=== PATIENT | female | born 1985 | race Caucasian/White ===

== ENCOUNTER 2022-04-12 14:25 | Outpatient (CLI) | payer BC, SELFPAY ==
--- NOTE | 2022-04-12 14:00 | CRLHL7_ITS ---
For Patients: As a result of the Century Cures Act, medical imaging exams and procedure reports are released immediately into your electronic medical record. You may view this report before your referring provider. If you have questions, please contact your health care provider. CLINICAL HISTORY: First trimester screening. TECHNIQUE: Real time sevilla scale imaging of the fetus was performed using a transabdominal approach. FINDINGS: Sonographic imaging demonstrates a single living intrauterine gestation. The fetus demonstrates a regular cardiac rate measuring 165 beats per minute. The crown rump length measurement of 4.2 cm corresponds to a gestation of 11 weeks 2 days which is concordant with the earlier dating ultrasound. A nuchal translucency measurement of 1.9 mm was obtained for screening purposes. IMPRESSION: Nuchal translucency measurement obtained for first trimester screen. Dictated by Chapo Vickers MD @ 04/12/2022 3:33:25 PM (Electronically Signed)
== END 2022-04-12 14:26 | disposition home or self-care (01) ==
LOC: US 14:26
PROVIDERS: PCP Family Medicine; Visit Provider Obstetrics & Gynecology
DX: Z34.91 Encounter for supervision of normal pregnancy, unspecified, first trimester (principal)
CPT/HCPCS: 36415; 76801; 76813; 84163; 84702

== ENCOUNTER 2022-05-14 12:07 | Outpatient (CLI) | payer BC, SELFPAY | END 2022-05-14 12:08 | disposition home or self-care (01) | LOC: NFLDREF 12:15 | PROVIDERS: PCP Family Medicine; Visit Provider Advanced Practice Midwife | DX: Z34.92 Encounter for supervision of normal pregnancy, unspecified, second trimester (principal); Z84.81 Family history of carrier of genetic disease | CPT/HCPCS: 81420 ==

== ENCOUNTER 2022-06-18 08:39 | Outpatient (CLI) | payer BC, SELFPAY ==
--- OUTSIDE RECORDS SUMMARY | 2022-06-18 08:41 | XMS_ITS | Clinical Summary ---
:1985 Author Organization [place] Address [address] [place] [address] Care Team Providers Name Role Phone [facility] Primary Care Provider [phone] Gia Martínez MD Unavailable [phone] Allergies No known active allergies Medications Medication Sig Dispensed Refills Start Date End Date Status lamoTRIgine (LAMICTAL) Take 400 mg by 0 Active 200 MG tablet mouth 2 times daily LEVETIRACETAM PO TABS Take 1,000 mg by 0 Active mouth 2 times daily. ACETAZOLAMIDE Take 500 mg by 0 A ctive POIndications: Seizure mouth 2 times daily. Indications: Seizure Vit-Fe Take 1 tablet by 0 Active Fumarate-FA ( mouth daily MULTIVITAMIN W/IRON) 27-0.8 MG tabletIndications: folic acid (FOLVITE) 1 Take 1 mg by mouth 0 Active MG tabletIndications: daily epilepsy ranitidine (ZANTAC) Take 150 mg by 0 Active 150 MG mouth 2 times capsuleIndications: daily Heartburn calcium carbonate Take 2 chew tab by 0 Active (TUMS) 500 MG chewable mouth 2 times tabletIndications: daily Heartburn magnesium oxide Take 400 mg by 0 Active (MAG-OX) 400 MG mouth daily tabletIndications: headache acetaminophen Take 325 mg by 0 A ctive (TYLENOL) 325 MG mouth every 6 tabletIndications: hours as needed Pain for mild pain or headaches Active Problems Problem Noted Date Encounter for induction of labor 10/28/2021 Social History Tobacco Use Types Packs/Day Years Used Date Never Smoker Smokeless Tobacco: Never Used Alcohol Use Standard Drinks/Week Comments Not Currently 0 (1 standard drink = 0.6 oz pure alcoho l) occ Sex Assigned at Date Recorded Not on file Last Filed Vital Signs Vital Sign Reading Time Taken Comments Blood Pressure 107/66 10/29/2021 11:[address] [employer]PERVIS[employer] Pulse 57 06/16/2013 7:52 AM CDT Temperature 37 ??C (98.6 ??F) 10/29/2021 6:[address] [employer]PER[employer] Respiratory Rate 99 10/29/2021 8:[address] [employer]PERVIS[employer] Oxygen Saturation 100% 10/29/2021 12:[address] [employer]PERVIS[employer] Inhaled Oxygen Concentration - - Weight 79.4 kg (175 lb) 10/28/2021 9:[address] [employer]PERVIS[employer] Height 165.1 cm (5' 5) 10/28/2021 9:[address] [employer]PERVIS[employer] Body Mass Index 29.12 10/28/2021 9:[address] [employer]VIS[employer] Plan of Treatment Health Maintenance Due Date Last Done Comments ADVANCE CARE PLANNING 1987 ANNUAL REVIEW OF HM ORDERS 1987 PREVENTIVE CARE VISIT 1987 Pneumococcal Vaccine: 1993 Pediatrics (0 to 5 Years) and At-Risk Patients (6 to 64 Years) (1 - PCV) PAP 2008 COVID-19 Vaccine (3 - 09/14/2021 04/14/2021, 03/24/2021 Booster for Pfizer series) PHQ-2 (once per calendar 10/07/2021 year) INFLUENZA VACCINE (#1) 2022 07/25/2021, 07/16/2019, 08/21/2018 DTAP/TDAP/TD IMMUNIZATION 12/18/2028 12/18/2018, 03/17/2016 , (7 - Td or Tdap) 04/23/2009, Additional history exists IPV IMMUNIZATION Aged Out 08/01/1989, 1985 No longe r eligible based on patient 's age to complete this topic HEPATITIS C SCREENING Completed 07/25/2021 HIV SCREENING Completed 07/25/2021 HEPATITIS B IMMUNIZATION Aged Out No long er eligible based on patient 's age to complete this topic MENINGITIS IMMUNIZATION Aged Out No longe r eligible based on patient 's age to complete this topic Insurance Payer Benefit Plan / Subscriber ID Effective Dates Phone Addre ss Type Group BCBS BCBS OUT OF [id number] 2021-Present [phone] [address] [address] [place] [address] Advance Directives For more information, please contact: [phone] Latest Code Status on File Code Status Date Activated Date Inactivated Comments Full Code 10/28/2021 6:54 PM 10/29/2021 4:58 PM All basic an d advanced life-sustaining interventions are performed as pepito ropriate Code status determined by: Discussion with patient/ legal de cision maker Care Teams Case Operator Relationship Specialty Start Date End Date [facility] Medical PCP - General 09/05/17 [id number] [place], [place] [phone] Gia Martínez MD Assigned OBGYN Provider 10/29/[address] [id number]
--- OUTSIDE RECORDS SUMMARY | 2022-06-18 08:41 | XMS_ITS | Encounter Summary ---
:1985 Author Organization [place] Address [address] [place] [address] Care Team Providers Name Role Phone [facility] Primary Care Provider [phone] Gia Martínez MD Unavailable [phone] Reason for Visit Reason Onset Date Comments Social Work Services 11/06/2021 Encounter Details Date Type Department Care Team Description 11/06/2021 Telephone [facility] MANAG[facility] [place] [facility] [id number] Mei Sanchez [facility] Social History Tobacco Use Types Packs/Day Years Used Date Never Smoker Smokeless Tobacco: Never Used Alcohol Use Standard Drinks/Week Comments Not Currently 0 (1 standard drink = 0.6 oz pure alcoho l) occ Sex Assigned at Date Recorded Not on file COVID-19 Exposure Response Date Recorded In the last month, have you been in contact with No / Unsure 10/28/2021 8:34 AM DEPARTMENT OF MATHEMATICS CHAIR someone who was confirmed or suspected to have Coronavirus / COVID-19? documented as of this encounter Miscellaneous Notes Telephone Encounter - Mei Rodriguez, TAX FORM PREPARER - 11/06/2021 9:21 AM DEPARTMENT OF MATHEMATICS CHAIR Received email from hospital security department with notification that fetus' body is still in the morgue. Security contacted [employer] [place] and they report they have not been able to reach patient to make the cremation arrangements and, therefore, they have not come to the hospital for removal of the body. Phone call to patient this morning. No answer. Message left with request that Trinity call me backas soon as possible. RTMENT OF MATHEMATICS CHAIR documented in this encounter Plan of Treatment Not on filedocumented as of this encounter Visit Diagnoses Not on filedocumented in this encounter Care Teams Sustainability Communicator Relationship Specialty Start Date End Date [facility] PCP - General 09/05/17 [id number] [place], [place] [phone] Gia Martínez MD Assigned OBGYN Provider 10/29/[address] [place] [address] documented as of this encounter
--- OUTSIDE RECORDS SUMMARY | 2022-06-18 08:41 | XMS_ITS | Encounter Summary ---
:1985 Author Organization [place] Address [address] [place] [address]. [place] [id number] Care Team Providers Name Role Phone [facility] Primary Care Provider [phone] Gia Martínez MD Unavailable [phone] Encounter Details Date Type Department Care Team Description 11/21/2021 Telephone [facility] Gia Martínez MD [address] [place] [address] [address] [place] [address] [place] [phone] Social History Tobacco Use Types Packs/Day Years Used Date Never Smoker Smokeless Tobacco: Never Used Alcohol Use Standard Drinks/Week Comments Not Currently 0 (1 standard drink = 0.6 oz pure alcoho l) occ Sex Assigned at Date Recorded Not on file COVID-19 Exposure Response Date Recorded In the last month, have you been in contact with No / Unsure 10/28/2021 8:34 AM QC LAB TECHNICIAN someone who was confirmed or suspected to have Coronavirus / COVID-19? documented as of this encounter Miscellaneous Notes Telephone Encounter - Liyah Loza RN - 12/29/2021 10:53 AM CDT Message with Patricia Chand who did not see any disputes for Dr. Martínez or the procedure done on 10/28/2021. Appears it is coded correctly. Next step is to contact the billing department to put in a coding query then maybe they can contact the insurance payer to see what the issues is. RN called the billing office and they clarified that they have already issued a coding query and that everything is coded correctly already. Patient will have to contact her insurance company to ask them for more information. Telephone Encounter - Liyah Loza RN - 12/29/2021 10:33 AM CDT RN attempting to contact medical specialist about this case. Liyah Loza RN Telephone Encounter - Lo Mcdaniel - 12/29/2021 10:15 AM CDT Patient called again about billing issue. She spoke to billing before she called us today and they told her they don't have anything in review or in process about new coding. Telephone Encounter - Liyah Loza RN - 11/22/2021 1:41 PM CST TC to Trinity today to update her. 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 Can you help with the coding request? I don't know what they are talking about. Thanks, Gia Martínez MD LAB TECHNICIAN Telephone Encounter - Liyah Loza RN - 11/21/2021 8:38 AM CST Trinity calling today reporting that she is getting bills from her termination induction on 10/28 and as it is listed as elective her insurance will not cover it. Believes an appeal needs to be written in order to have insurance cover the procedure. Discussed the case with Gracie in the billing department who specified that the provider (MORRO) should send a coding request to the billing department. Routed to MORRO. Please let RN know when complete so Trinity can be updated. Liyah Loza RN LAB TECHNICIAN documented in this encounter Plan of Treatment Not on filedocumented as of this encounter Visit Diagnoses Not on filedocumented in this encounter Care Teams Power Technician Relationship Specialty Start Date End Date [facility] PCP - General 09/05/17 [id number] [place], [place] [phone] Gia Martínez MD Assigned OBGYN Provider 10/29/[address] [place] [address] documented as of this encounter
--- OUTSIDE RECORDS SUMMARY | 2022-06-18 08:42 | XMS_ITS | Encounter Summary ---
:1985 Author Organization [place] Address [address] [place] [address] Care Team Providers Name Role Phone [facility] Primary Care Provider [phone] Ernestina Shah MD Unavailable Encounter Details Date Type Department Care Team Description 09/05/2017 Hospital Encounter [facility] Ernestina Shah Non intractable [facility] Laboratory MD Adriana generalized idiopathic [address] [facility] OF epilepsy wi th status [address] NEUROLOGY epilepticus (H) [place], [place] [address] [phone] [facility] [address] [place] [address] Social History Tobacco Use Types Packs/Day Years Used Date Never Smoker Alcohol Use Standard Drinks/Week Comments Yes 0 (1 standard drink = 0.6 oz pure alcoho l) occ Sex Assigned at Date Recorded Not on file documented as of this encounter Medications at Time of Discharge Medication Sig Dispensed Refills Start Date End Date ACETAZOLAMIDE Take 500 mg by mouth 0 POIndications: Seizure 2 times daily. Indications: Seizure lamoTRIgine (LAMICTAL) Take 400 mg by mouth 0 200 MG tablet 2 times daily LEVETIRACETAM PO TABS Take 1,000 mg by 0 mouth 2 times daily. levonorgestrel (MIRENA) 1 each by 0 0 10/28/2021 20 MCG/24HR IUD Intrauterine route once. ondansetron (ZOFRAN ODT) Take 1 tablet by 12 tablet 1 05/15 /2013 10/28/2021 8 MG disintegrating mouth every 4 hours tabletIndications: as needed for nausea. Chronic tonsillitis oxyCODONE-acetaminophen Take 5-10 mLs by 500 mL 0 201210/28/2021 (ROXICET) 5-325 MG/5ML mouth every 4 hours solutionIndications: as needed for pain. Chronic tonsillitis Pseudoephedrine HCl Take 60 mg by mouth 0 10/28/2021 (SUDAFED PO) every 4 hours as needed. documented as of this encounter Plan of Treatment Not on filedocumented as of this encounter Procedures Procedure Name Priority Date/Time Associated Diagnosis Comme nts LAMOTRIGINE LEVEL Routine 09/05/2017 7:19 Nonintractable Resul ts for this AM COMPLIANCE DIRECTOR generalized idiopathic proce dure are in epilepsy with status the res ults epilepticus (H) section. KEPPRA Routine 09/05/2017 7:19 Nonintractable Results fo r this (LEVETIRACETAM) LEVEL AM COMPLIANCE DIRECTOR generalized idiopat hic procedure are in epilepsy with status the res ults epilepticus (H) section. COMPREHENSIVE Routine 09/05/2017 7:19 Nonintractable Results f or this METABOLIC PANEL AM COMPLIANCE DIRECTOR generalized idiopathic pr ocedure are in epilepsy with status the res ults epilepticus (H) section. documented in this encounter Results (ABNORMAL) Keppra (Levetiracetam) Level (09/05/2017 7:19 AM COMPLIANCE DIRECTOR) athologist Signature Keppra 2 (L) 12 - 46 09/06/2017 [facility] (Levetiracetam) ug/mL 3:44 AM [facility] Comment: (Note) INTERPRETIVE INFORMATION: Keppra (Leveti racetam) Therapeutic Range: ??12-46 ug/mL ? Toxic: ??Not well Establ ished Pharmacokinetics of levetiracetam are af fected by renal function. Adverse effects may include so mnolence, weakness, headache and vomiting. Performed by [facility], [address] [place] [id number] [email or web address], Francisco Rubio MD, Lab. Director Specimen Anatomical Collection Method Collection Time Receive d Time (Source) Location / / Volume Laterality Blood specimen 09/05/2017 7:19 AM 017 7:20 (specimen) COMPLIANCE DIRECTOR AM COMPLIANCE DIRECTOR Ernestina Shah MD LAB - BLOOD ORDERABLES Performing Organization Address [facility] Phon e Number [facility] [address] [place], [place] [address] [facility] [address] [place], [place] [address], [facility] [phone] Lamotrigine Level (09/05/2017 7:19 AM [facility]) athologist Signature Lamotrigine 5.1 2.5 - 15.0 09/06/2017 [facility] Level ug/mL 3:44 AM [facility] Comment: (Note) INTERPRETIVE INFORMATION: ??Lamotrigine Therapeutic Range: ??2.5-15.0 ug/mL ? Toxic: ??Not well establ ished Pharmacokinetics varies widely, particul leon with co-medications and/or compromised renal function. ??Adverse effects may include dizziness, somnolenc e, nausea and vomiting. Performed by [facility], [address] [place] [id number] [email or web address], Francisco Rubio MD, Lab. Director Specimen Anatomical Collection Method Collection Time Receive d Time (Source) Location / / Volume Laterality Blood specimen 09/05/2017 7:19 AM 017 7:20 (specimen) COMPLIANCE DIRECTOR AM COMPLIANCE DIRECTOR Ernestina Shah MD LAB - BLOOD ORDERABLES Performing Organization Address [facility]/ZIP Code Phon e Number [facility] [address] [place], [place] [address] [facility] [address] [place] [address], [facility] [phone] (ABNORMAL) Comprehensive metabolic panel (BMP + Alb, Alk Phos, ALT, AST, Total. Bili, TP) (09/05/2017 7:19 AM [facility]) athologist Signature Sodium 141 133 - 144 09/05/2017 [facility] mmol/L 7:44 AM [facility] Potassium 3.7 3.4 - 5.3 09/05/2017 [facility] mmol/L 7:44 AM [facility] Chloride 114 (H) 94 - 109 09/05/2017 [facility] mmol/L 7:44 AM [facility] Carbon Dioxide 20 20 - 32 09/05/2017 [facility] mmol/L 7:44 AM [facility] Anion Gap 7 3 - 14 09/05/2017 [facility] mmol/L 7:44 AM [facility] Glucose 93 70 - 99 09/05/2017 [facility] mg/dL 7:44 AM [facility] Urea Nitrogen 13 7 - 30 09/05/2017 [facility] mg/dL 7:44 AM [facility] Creatinine 0.98 0.52 - 09/05/2017 [facility] 1.04 mg/dL 7:44 AM [facility] GFR Estimate 66 >60 09/05/2017 [facility] mL/min/1.7 7:[address] Comment: Non GFR Calc GFR Estimate If 80 >60 mL/min/1.7m2 09/05/2017 7:[address] [facility] Comment: GFR Calc Calcium 8.9 8.5 - 10.1 mg/dL 09/05/2017 7:44 AM [facility] Bilirubin Total 0.6 0.2 - 1.3 mg/dL 09/05/2017 7:44 AM [facility] Albumin 4.0 3.4 - 5.0 g/dL 09/05/2017 7:44 AM [facility] Protein Total 7.4 6.8 - 8.8 g/dL 09/05/2017 7:44 AM [facility] Alkaline Phosphatase 65 40 - 150 U/L 09/05/2017 7:44 AM [facility] ALT 16 0 - 50 U/L 09/05/2017 7:44 AM [facility] Jen [facility] AST 13 0 - 45 U/L 09/05/2017 7:44 AM [facility] Specimen Anatomical Collection Method Collection Time Receive d Time (Source) Location / / Volume Laterality Blood specimen 09/05/2017 7:19 AM 017 7:20 (specimen) COMPLIANCE DIRECTOR AM COMPLIANCE DIRECTOR Ernestina Shah MD LAB - BLOOD ORDERABLES Performing Organization Address City/State/ZIP Code Phon e Number [facility] [address] [place], [place] [address] [facility] [address] [place], [place] [address] [facility] [phone] documented in this encounter Visit Diagnoses Diagnosis 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
--- OUTSIDE RECORDS SUMMARY | 2022-06-18 08:42 | XMS_ITS | Encounter Summary ---
:1985 Author Organization [facility] Address [address] [place] [address]. [place] [address] Care Team Providers Name Role Phone [facility] 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 (Emergency: 1-2 Days) - Pending Review Specialty Diagnoses / Procedures Referred By Contact Refer red To Contact deputy prosecuting attorney Diagnoses Abnormal ultrasound Shirley Pearson [facility] [address] [facility] [place] [address] [facility] [address] [place] [address],[facility] [address] [phone] Phone: Fax: Referral ID Status Reason Start Date Expiration Date Visits V isits Requested Authorized [id number] Pending 10/25/2021 10/25/2022 1 1 Review Encounter Details Date Type Department Care Team Description 10/26/2021 Virtual Visit [facility] Milly Pearson [facility] [address] [place] [address] Known anomaly, Clinic Gia Umanzor MD [address] [place], [place] [address] antepartum, single or [address] unspecified fetus [place], [place] (Primary Dx) [phone] Social History Tobacco Use Types Packs/Day Years Used Date Never Smoker Alcohol Use Standard Drinks/Week Comments Yes 0 (1 standard drink = 0.6 oz pure alcoho l) occ Sex Assigned at Date Recorded Not on file COVID-19 Exposure Response Date Recorded In the last month, have you been in contact with No / Unsure 10/26/2021 1:52 PM BIN FILLER someone who was confirmed or suspected to have Coronavirus / COVID-19? documented as of this encounter Progress Notes Gia Martínez MD - 10/26/2021 2:00 PM CST OBGYN Clinic Consultation Date of visit: 10/26/2021 Chief Complaint: anomalies HPI: Trinity Ramirez is a 36 year old at 21w1d by 7w6d US not consistent with LMP dating patient with past medical history significant for seizure disorder who presents in consultation after abnormal survey ultrasound. I reviewed her outside records including appointments, lab reports and ultrasound reports. I called patient in advance of her appointment to recommend level 2 [facility] ultrasound. They could fit her in today so she went to the ultrasound in lieu of clinic appointmentat [place]. I called her after her ultrasound with [facility] She and her are interested in induction termination. They do not want genetic testing or autopsy done. They plan on cremation. They are interested in potentially having their daughter come to the hospital after the baby is born. She is interested in epidural analgesia but had complications with her last epidural and got a spinal headache. LMP: 05/25/2021 1. US 07/25/2021: single viable IUP measuring 7w6d STONE 03/07/2022 2. US 10/23/2021: single living IUP . FHR 135. Breech position. Placenta anterior without evidence ofplacenta previa. Edge of placenta is 7.2cm from internal cervical os. Amniotic fluid volume appears normal. MVP 4.3cm. cervix is closed and measures 4.1cm. BPD: 4.5cm / 19w4d / 11th% HC: 16.6cm / 19w2d / <3rd% AC: 14.5cm / 19w6d / 17th% FL: 2.9cm / 19w0d / 3rd% EFW 292g / 4th% Multiple small choroid plexus cysts are present bilaterally. The left ventricular and right ventricular outflow tracts are abnormal. The RVOT measures 5mm and th LVOT measures 4mm. Lack of normal branching noted with the RVOT. Abnormal contour of LVOT. Debris is located within the distended stomach. Ab normal abdomen with 2 additional anechoic structures beside the stomach possibly representing loops of duodenum. Mild diffuse thickening of the abdominal wall is suspected without intra-abdominal ascites. No definitive spinal defect. Abnormal arms with incomplete/nnonvisualization of forearms and hands. It is unclear whether or not these are present. Unusual morphologic appearance of the legs including shortening of femurs. Possible abnormal contour over the frontal calvarium which could suggest thelemon sign. No hydrocephalus. Right pelviectasis appears to be present. Single umbilical artery. Eccentric placenta insertion of the cord. 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 Maternal medicine level 2 consultation recommended along with genetic counseling/testing. Sonographic gestationalage 19w3d and sonographic due date 03/16/2022. Sonographic age 9 days behind the clinical age. Estimated weight 4th percentile. I discussed ultrasound findings with Dr. Andersen. 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 Past Medical History: Diagnosis Date ??? Genital herpes ??? Seizures (H) last one was about a year ago Past Surgical History: Past Surgical History: Procedure Laterality Date ? ? HEAD & NECK SURGERY wisdom teeth removed ??? TONSILLECTOMY 02/18/2013 Procedure: TONSILLECTOMY; Tonsillectomy; Surgeon: Ronald Loya MD; Location: [facility] OR Medications: Current Outpatient Medications Medication ??? ACETAZOLAMIDE PO ??? lamoTRIgine (LAMICTAL) 200 MG tablet ??? LEVETIRACETAM PO TABS ??? levonorgestrel (MIRENA) 20 MCG/24HR IUD ??? ondansetron (ZOFRAN ODT) 8 MG disintegrating tablet ??? oxyCODONE-acetaminophen (ROXICET) 5-325 MG/5ML solution ??? Pseudoephedrine HCl (SUDAFED PO) No current facility-administered medications for this visit. Allergy: No Known Allergies Patient denies food, latex or environmental allergies. Social History: Works from home. Social History Tobacco Use ??? Smoking status: Never Smoker ??? Smokeless tobacco: Not on file Substance Use Topics ??? Alcohol use: Yes Comment: occ ??? Drug use: No Physical Exam: There were no vitals filed for this visit. There is no height or weight on file to calculate BMI. Gen: healthy, alert, active, no distress Assessment: Trinity Ramirez is a 36 year old at 21w1d, fetus with multiple severe anomalies. She desires termination of with induction of labor. Plan: 1. Known anomaly, antepartum, single or unspecified fetus Discussed options with patient and her partner. They do not want D&E. They desire induction of labor. Discussed IOL process, discussed it can take variable amount of time. Discussed potential for placenta to be stuck and need D&C procedure to remove it. Discussed risks of infection, bleeding, trauma to uterus and potential scarring. Discussed recovery. Discussed her milk may come in and how to discourage that. Discussed she could try again for in 6-12 months if uncomplicated. A women's right to know consent was completed on the phone on 10/26/2021 with 335pm with me, Gia Martínez MD. Plan for induction of labor at [place] on 10/28 at 9am. Will get COVID swab on admission. Plan mifepristone and high dose misoprostol. She desires epidural, though she is nervous because she got a spinal headache last time. She does not want genetic testing or an autopsy done. She is potentially interested in having her daughter come to visit after delivery. She is planning cremation and is interested in talking with a social media campaign manager tomorrow to help make arrangements ahead of time. She has questions about insurance coverage. I will have the hospital social media campaign manager reach out to her. I also gave her my bow maker production's phone number who may be able to help with coding questions. Phone call duration: 29min Gia Martínez MD FILLER documented in this encounter Plan of Treatment Scheduled Referrals Name Type Priority Associated Diagnoses Order S chedule Bulk Sausage Casing Tier Off Referral Referral Emergency: 1-2 Days Abnormal Ord ered: 10/25/2021 ultrasound documented as of this encounter Visit Diagnoses Diagnosis Known anomaly, antepartum, single or unspecified fetus - Primary documented in this encounter Care Teams Firearms Model Maker Relationship Specialty Start Date End Date [facility] PCP - General 09/05/17 [id number] [place], [place] [id number] documented as of this encounter
--- OUTSIDE RECORDS SUMMARY | 2022-06-18 08:42 | XMS_ITS | Encounter Summary ---
:1985 Author Organization [facility] Address [address] [place] [address]. [place] [address] Care Team Providers Name Role Phone [facility] Primary Care Provider [phone] Ernestina Shah MD Unavailable Gia Martínez MD Unavailable [phone] Reason for Referral - Closed Specialty Diagnoses / Procedures Referred By Contact Refer red To Contact Diagnoses related condition Alberta Beckford, 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 condition (Primary Dx) Medicine Center [facility] [address] [facility] [address] [place] [phone] Social History Tobacco Use Types Packs/Day Years Used Date Never Smoker Alcohol Use Standard Drinks/Week Comments Yes 0 (1 standard drink = 0.6 oz pure alcoho l) occ Sex Assigned at Date Recorded Not on file documented as of this encounter Plan of Treatment Scheduled Referrals Name Type Priority Associated Diagnoses Order S chedule [facility] Referral Routine related Order ed: 07/24/2018 REFERRAL- condition documented as of this encounter Visit Diagnoses Diagnosis related condition - Primary Unspecified complication of , u nspecified as to episode of care documented in this encounter Care Teams Air Turning Machine Feeder Relationship Specialty Start Date End Date [facility] PCP - General 09/05/17 [id number] [place], [place] [phone] Ernestina Shah MD MD Neurology 09/05/17 10/28/[address] [facility] [address] [facility] [address] [place] [address] Gia Martínez MD Assigned OBGYN Provider 10/29/[address] [place], [place] [address] documented as of this encounter
--- OUTSIDE RECORDS SUMMARY | 2022-06-18 08:42 | XMS_ITS | Encounter Summary ---
:1985 Author Organization [place] Address [address] [place] [address] Care Team Providers Name Role Phone [facility] Primary Care Provider [phone] Reason for Referral Diagnostic Imaging Ultrasound (Routine) - Pending Review Specialty Diagnoses / Procedures Referred By Contact Refer red To Contact Diagnoses related condition, antepartum Peterson Pearson Procedures [facility] [address] [place] [address] Referral ID Status Reason Start Date Expiration Date Visits V isits Requested Authorized [id number] Pending 10/24/2021 10/24/2022 1 1 Review MIXER REPAIRER Consultation (Routine: Next available opening) - Pending Review Specialty Diagnoses / Procedures Referred By Contact Refer red To Contact Diagnoses related condition, antepartum Peterson Pearson [facility] [address] [place] [address] Referral ID Status Reason Start Date Expiration Date Visits V isits Requested Authorized [id number] Pending 10/24/2021 10/24/2022 1 1 Review MIXER REPAIRER Encounter Details Date Type Department Care Team Description 10/24/2021 Transcribe Orders [facility] Alexy aBrajas, Pregn misty related Maternal Peterson Becerra [place] [facility], Medicine [facility] antepartum (Primary [facility]) [address] [facility] [address] [place] [id number] Social History Tobacco Use Types Packs/Day Years Used Date Never Smoker Alcohol Use Standard Drinks/Week Comments Yes 0 (1 standard drink = 0.6 oz pure alcoho l) occ Sex Assigned at Date Recorded Not on file documented as of this encounter Plan of Treatment Scheduled Referrals Name Type Priority Associated Diagnoses [facility] Referral Routine: Next related Expe cted: Referral - available opening condition, 10/24/2021 antepartum (Approximate), Expires: 04/22/2022 documented as of this encounter Results [facility] US Comprehensive Single (10/26/2021 3:29 PM FOOD MIXER REPAIRER) Anatomical Region Laterality Modality Ultrasound Specimen (Source) Anatomical Collection Method Collection Time Re ceived Time Location / / Volume Laterality 10/26/2021 1:55 PM FOOD MIXER REPAIRER Impressions 10/26/2021 5:17 PM FOOD MIXER REPAIRER IMPRESSION 1) Eduardo intrauterine at 2 1w 1d gestational age. 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 4) Growth parameters and estimated weight were consistent with a growth restriction. 5) The amniotic fluid volume appeared no rmal. 6) The umbilical artery Doppler waveform appeared normal. The UA Doppler was evaluated due to the finding of growth restriction. Narrative 10/26/2021 5:17 PM FOOD MIXER REPAIRER Comprehensive Pat. Name: TRINITY AYALA Study Chet e: 10/26/2021 1:55pm Pat. NO: [id number] Referring ??: SETH FRAGOSO Site: [facility] Head Of Operation And Logistics: Marya Moy RDMS : 1985 Age: 36 INDICATION Multiple anomalies on outside ultrasound . METHOD Transabdominal ultrasound examination. V iew: Sufficient Eduardo . Number of fetuses: 1 DATING ? Date ?Details ?Gest. age ?STONE LMP ?05/25/2021 ? 22 w + 0 d ? 03/01/2022 Prior assessment ? GA: 7 w + 6 d ?21 w + 1 d ? 03/07/2022 U/S ? 10/26/2021 ? based upon AC, BPD, Femur, HC ? 20 w + 0 d ? 03/15/2022 Assigned dating ?Dating performed on 10/26/2021, based on the prior assessment (on 07/25/2021) ? 21 w + 1 d ? 03/07/2022 GENERAL EVALUATION Cardiac activity present. FHR 130 bpm. movements present. Presentation breech. Placenta Posterior, no previa . Umbilical cord 2 vessel cord. Amniotic fluid Amount of AF: normal. MVP 4.5 cm. BIOMETRY Main Biometry: BPD ?49.2 ?mm ? 20w 6d ?Noelle MORALES ?59.5 ?mm ? 19w 3d ?Nicolaides HC ?173.4 ?mm ?19w 6d ?Hadlock Cerebellum tr ?20.4 ? mm ?19w 3d ?Nicolaides AC ?150.1 ?mm ?20w 2d ?17% ?Hadlock Femur ?29.8 ? mm ?19w 1d ?Hadlock Humerus ?28.6 ?mm ? 19w 2d ?Schuyler Weight Calculation: EFW ? 315 ? g ? 4% ?Hadlock EFW (lb,oz) ? 0 lb 11 ? oz EFW by ?Hadlock ([id number]) Head / Face / Neck Biometry: Street Sweeper Operator ? 4.8 ? mm CM ?5.4 ? mm Nasal bone ? 6.1 ? mm Extremities / Bony Struc Biometry: Radius ? 6.3 ? mm ?<1% ?Garcia Ulna ?22.0 ?mm ? <1% ? Garcia Rt Humerus ?29.6 ? mm ?19w 5d ?Schuyler Rt Radius ? 6.3 ? mm ? <1% ? Garcia Rt Ulna ?21.5 ?mm ? <1% ?Garcia Lt Humerus ?28.5 ?mm ? 19w 2d ?Schuyler Lt Radius ? 0.0 ?mm ? <1% ?Garcia Lt Ulna ? 22.5 ? mm ?<1% ?Garcia Tibia ?25.0 ?mm ? 4% ?Garcia Fibula ?26.3 ?mm ? 12% ?Garcia Rt Femur ? 29.8 ?mm ? 19w 1d ? Hadlock Rt Tibia ?25.7 ?mm ? 7% ?Garcia Rt Fibula ?27.4 ?mm ? 18% ?Garcia Lt Tibia ?24.2 ?mm ? 2% ? Garcia Lt Fibula ?25.2 ?mm ? 7% ? Garcia ANATOMY Head / Neck ? Left choroid plexus: cyst Abdomen ? Stomach: debris in stomach Extremities / Skeleton ?Rig ht foot: flat ? Left foot: flat The following structures appear abnormal : Face ? Orbits. Heart / Thorax ?4-chamber view. RVOT view. Inferior vena cava. 3-vessel view. Extremities / Skeleton ?Rig ht arm. Right forearm. Right hand. Left arm. Left forearm. Left hand. The following structures appear normal: Head / Neck ? Cranium. Head size. Head shape. Lateral ventricles. Right choroid plexus. Midline falx. Cavum septi pellucidi. Cerebellum. Cisterna magna. ? Parenchyma. Thalami. Vermis. ? Neck. Face ? Lips. Profile. Nose. Maxilla. Mandible. Lens. Heart / Thorax ?Situs. Ductal arch view. 7-bmqaci-kbseudd view. Cardiac position. Cardiac size. Cardiac rhythm. ? Right lung. Left lung. Diaphragm. Abdomen ? Abdominal wall. Cord insertion. Kidneys. Bladder. Liver. Bowel. Genitals. Extremities / Skeleton ?Rig ht upper arm. Left upper arm. Right leg. Left leg. The following structures could not be ad equately visualized: Heart / Thorax ?LVOT view. Bicaval view. Superior vena cava. Spine ?Cervical spine. Thoracic spine. Lumbar spine. Sacral spine. The following structures could not be vi sualized: Heart / Thorax ?Aortic arch view. Gender: male. DOPPLER Umbilical Artery: PI ?1.42 ?83% ?Kiet HR ?134 ? bpm MATERNAL STRUCTURES Cervix ?Visualized ? Appearance: Appears Closed ? Cervical length 32.3 mm Right Ovary ?Visualized Left Ovary ?Not visualized RECOMMENDATION We discussed the findings on today's ult rasound with the patient. Trinity was referred to our office for an comprehensive ultrasound to confirm the findings on previous outside ultrasound. The couple were previously counseled regarding the multiple anomalies a nd have decided to proceed with termination of . She is scheduled to see Dr. Martínez later today to further discuss the process and scheduled of induction of la bor through [facility]. Trinity would like to proceed with delivery as soon as possible. We discussed the multiple differen brandon seen on today's ultrasound are suggestive of aneuploidy. Specifically, we discussed that the findings raise the concern for Trisomy 18. Trinity did have cell-free DNA screening drawn and the test is in process. She does not desire amniocentesis for definitive testing at this time as the results would not ultimately change thei r decision regarding management given the multiple anomalies seen. We discussed that if Trisomy 18 is confirmed on cell-free DNA screening that the risk for Trisomy 18 would be increased to approximately 1% in future pregnancies. The couples is aware of this and will plan for earlier genetic screening in future pregnancies. Further ultrasound studies as clinically indicated. Return to primary provider for continued care. Thank you for the opportunity to partici freddy in the care of this patient. If you have questions regarding today's evaluation or if we can be of further service, please contact the [facility]. anomalies may be present but not detected Procedure Note Ce Andersen MD - 10/26/2021Form atting of this note might be different from the original. Comprehensive Pat. Name:SAI AYALARahul Date: 10/26/2021 1:55pm Pat. NO: [id number] MD:PETERSON Houser [facility]Marya Moy RD MS :1985Age:36 INDICATION Multiple anomalies on outside ultrasound . METHOD Transabdominal ultrasound examination. V iew: Sufficient Eduardo . Number of fetuses: 1 DATING Date Details Gest. age STONE LMP 05/25/2021 22 w + 0 d 03/01/2022 Prior assessment 07/25/2021 GA: 7 w + 6 d 21 w + 1 d 03/07/2022 U/S 10/26/2021 based upon AC, BPD, Femur, HC 20 w + 0 d 03/15/2022 Assigned dating Dating performed on 10/08, based on the prior assessment (on 07/25/2021) 21 w + 1 d 03/07/2022 GENERAL EVALUATION Cardiac activity present. FHR 130 bpm. movements present. Presentation breech. Placenta Posterior, no previa . Umbilical cord 2 vessel cord. Amniotic fluid Amount of AF: normal. MVP 4.5 cm. BIOMETRY Main Biometry: BPD 49.2 mm 20w 6d Hadlock OFD 59.5 mm 19w 3d Nicolaides HC 173.4 mm 19w 6d Hadlock Cerebellum tr 20.4 mm 19w 3d Nicolaides AC 150.1 mm 20w 2d 17% Hadlock Femur 29.8 mm 19w 1d Hadlock Humerus 28.6 mm 19w 2d Schuyler Weight Calculation: EFW 315 g 4% Hadlock EFW (lb,oz) 0 lb 11 oz EFW by Hadlock ([id number]) Head / Face / Neck Biometry: Street Sweeper Operator 4.8 mm CM 5.4 mm Nasal bone 6.1 mm Extremities / Bony Struc Biometry: Radius 6.3 mm <1% Garcia Ulna 22.0 mm <1% Garcia Rt Humerus 29.6 mm 19w 5d Schuyler Rt Radius 6.3 mm <1% Garcia Rt Ulna 21.5 mm <1% Garcia Lt Humerus 28.5 mm 19w 2d Schuyler Lt Radius 0.0 mm <1% Garcia Lt Ulna 22.5 mm <1% Garcia Tibia 25.0 mm 4% Garcia Fibula 26.3 mm 12% Garcia Rt Femur 29.8 mm 19w 1d Hadlock Rt Tibia 25.7 mm 7% Garcia Rt Fibula 27.4 mm 18% Garcia Lt Tibia 24.2 mm 2% Garcia Lt Fibula 25.2 mm 7% Garcia ANATOMY Head / Neck Left choroid plexus: cyst Abdomen Stomach: debris in stomach Extremities / Skeleton Right foot: flat Left foot: flat The following structures appear abnormal : Face Orbits. Heart / Thorax 4-chamber view. RVOT view . Inferior vena cava. 3-vessel view. Extremities / Skeleton Right arm. Right forearm. Right hand. Left arm. Left forearm. Left hand. The following structures appear normal: Head / Neck Cranium. Head size. Head sha pe. Lateral ventricles. Right choroid plexus. Midline falx. Cavum septi pellucidi. Cerebellum. Cisterna magna. Parenchyma. Thalami. Vermis. Neck. Face Lips. Profile. Nose. Maxilla. Savita ble. Lens. Heart / Thorax Situs. Ductal arch view. 6-bbqwqo-wkwoqde view. Cardiac position. Cardiac size. Cardiac rhythm. Right lung. Left lung. Diaphragm. Abdomen Abdominal wall. Cord insertion. Kidneys. Bladder. Liver. Bowel. Genitals. Extremities / Skeleton Right upper arm. Left upper arm. Right leg. Left leg. The following structures could not be ad equately visualized: Heart / Thorax LVOT view. Bicaval view. Superior vena cava. Spine Cervical spine. Thoracic spine. Salome mbar spine. Sacral spine. The following structures could not be vi sualized: Heart / Thorax Aortic arch view. Gender: male. DOPPLER Umbilical Artery: PI 1.42 83% Kiet HR 134 bpm MATERNAL STRUCTURES Cervix Visualized Appearance: Appears Closed Cervical length 32.3 mm Right Ovary Visualized Left Ovary Not visualized RECOMMENDATION We discussed the findings on today's ult rasound with the patient. Trinity was referred to our office for an comprehensive ultrasound to confirm the findings on previous outside ultrasound. The couple were previously counseled regarding the multiple anomalies a nd have decided to proceed with termination of . She is scheduled to see Dr. Martínez later today to further discuss the process and scheduled of induction of la bor through [facility]. Trinity would like to proceed with delivery as soon as possible. We discussed the multiple differen brandon seen on today's ultrasound are suggestive of aneuploidy. Specifically, we discussed that the findings raise the concern for Trisomy 18. Trinity did have cell-free DNA screening drawn and the test is in process. She does not desire amniocentesis for definitive testing at this time as the results would not ultimately change thei r decision regarding management given the multiple anomalies seen. We discussed that if Trisomy 18 is confirmed on cell-free DNA screening that the risk for Trisomy 18 would be increased to approximately 1% in future pregnancies. The couples is aware of this and will plan for earlier genetic screening in future pregnancies. Further ultrasound studies as clinically indicated. Return to primary provider for continued care. Thank you for the opportunity to partici freddy in the care of this patient. If you have questions regarding today's evaluation or if we can be of further service, please contact the [facility]. anomalies may be present but not detected IMPRESSION 1) Eduardo intrauterine at 2 1w 1d gestational age. 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 4) Growth parameters and estimated weight were consistent with a growth restriction. 5) The amniotic fluid volume appeared no rmal. 6) The umbilical artery Doppler waveform appeared normal. The UA Doppler was evaluated due to the finding of growth restriction. Peterson Barajas [facility] US ORDERABLES documented in this encounter Visit Diagnoses Diagnosis related condition, antepartum - Primary related condition, antepartum documented in this encounter Care Teams Heavy Equipment Service Manager Relationship Specialty Start Date End Date [facility] PCP - General 09/05/17 [id number] [place] [address] documented as of this encounter
--- OUTSIDE RECORDS SUMMARY | 2022-06-18 08:42 | XMS_ITS | Encounter Summary ---
:1985 Author Organization [place] Address [address] [place] [address]. [place] [address] Care Team Providers Name Role Phone Unavailable Primary Care Provider Unavailable Encounter Details Date Type Department Care Team Description 11/10/2007 Emergency room Antonio Kirkpatrick [address] [place] [address] Social History Tobacco Use Types Packs/Day Years Used Date Never Assessed Sex Assigned at Date Recorded Not on file documented as of this encounter Progress Notes Interface, Machine Leather Trimmer - 11/11/2007 3:54 PM JAVA DEVELOPER CONSULTANT FINAL CHIEF COMPLAINT: I had a seizure. HISTORY OF PRESENT ILLNESS: A 22-year-old female with history of seizure disorder presents with [facility] for evaluation of seizure. The patient states that she was up at about 8:20. She was braiding her hair, and then next thing she knows she was in bed. Her mom stated that she was doing something with her hair, they were having a conversation, and then she had a stare on her face and then kind of grabbed her head, moaning, and then fell backwards. She hit doorknob that kind of pushed through the wall. Mom stated that she had basically stiffening of her body. She could not get her to straighten out. Then she was kind of struggling on the ground for a little while. Her lips turned blue. Her mom didcall 911. Her symptoms then resolved. The patient was able to stand up, still kind of confused and dazed. Mom got her into bed and paramedics arrived. At that point she was starting to become more arouseable, the paramedics stated that she could be driven in by her family for further evaluation and recommended that. Mom states that she call the neurology clinic but did not hear back for several hours. Just prior to them leaving the Emergency Department, the neurologist did recommend 200 mg in the morning, at 200 mg at night and Lamictal 200 in the morning and 1 at night. She has not had recent fevers, sore throat, coughing or problems breathing. No vomiting, diarrhea, rash, itching. She has had a red bump on her right arm. No weakness, numbness. Specifically, she does generally feel weak right now but states that she normally has that after a seizure. REVIEW OF SYSTEMS: All other systems negative except as noted in the HPI. The patient developed herperiod several days ago. PAST MEDICAL HISTORY: Significant for seizure disorders and she was 15. She is on Depakote and thensince a year or two ago she has been Lamictal. She has had an EEG, seems to be associated with menstrual periods. MEDICATIONS: Lamictal, Aleve. ALLERGIES: None. SOCIAL HISTORY: She is nonsmoker. PHYSICAL EXAMINATION: VITAL SIGNS: Blood pressure 124/71, pulse 68, respirations 12, temperature 97.2 and O2 sat 98%. GENERAL: She is awake, alert, nontoxic female sitting upright. HEENT: Sclerae nonicteric. She has fair eye contact. Pupils are equal, round and react to light. Midface is stable without occlusion. No raccoon eyes, bey sign or hemotympanum. NECK: Nontender in the midline posteriorly. She does not have any thoracic or lumbar spinal tenderness. LUNGS: Clear. HEART: Regular rate and rhythm. ABDOMEN: Soft, nontender and nondistended. EXTREMITIES: Without cyanosis or edema. SKIN: Without petechiae or rash. NEUROLOGIC: She has easily palpable distal pulses. Neurologically she is awake and alert. Answers questions appropriately. Moves all extremities. Normal strength. Normal sensation. Normal deep tendon reflexes. LABORATORY AND RADIOGRAPHIC EXAMINATION: Urine test is negative. Urinalysis is normal. Lamictal level is pending. EMERGENCY DEPARTMENT COURSE: She was given some food here. They did have her pills with, and they gave her 200 mg of Lamictal, which she had not had this morning. Repeat vital signs are stable. I instructed them to follow up with Dr. Barnhart, return with recurrent seizure that does not stop within 5 minutes. She was discharged in stable condition. DIAGNOSIS: Acute exacerbation of chronic seizure disorder. Electronically signed on 11/11/2007 15:53 by ANTONIO KIRKPATRICK MD MT: MARIO#[id number] Name: TRINITY AYALA MRN: [id number] Account: [id number] : 1985 Visit Date: 11/10/2007 Document: [id number] cc: Eli INMAN DEVELOPER CONSULTANT documented in this encounter Plan of Treatment Not on filedocumented as of this encounter Visit Diagnoses Not on filedocumented in this encounter
--- OUTSIDE RECORDS SUMMARY | 2022-06-18 08:42 | XMS_ITS | Encounter Summary ---
:1985 Author Organization [place] Address [address] [place] [address]. [place] [address] Care Team Providers Name Role Phone [facility] Primary Care Provider [phone] Encounter Details Date Type Department Care Team Description 10/23/2021 Medical Correspondence [facility] Scan, MATERNAL Health Info Mgmt Non-Provider MEDICINE CE [facility] Srvcs PROVIDER SERVICE [address] [place] [address] [place] [address] [facility] [phone] AND CLINICS Social History Tobacco Use Types Packs/Day Years Used Date Never Smoker Alcohol Use Standard Drinks/Week Comments Yes 0 (1 standard drink = 0.6 oz pure alcoho l) occ Sex Assigned at Date Recorded Not on file documented as of this encounter Plan of Treatment Not on filedocumented as of this encounter Visit Diagnoses Not on filedocumented in this encounter Care Teams Lunchroom Worker Relationship Specialty Start Date End Date [facility] Medical PCP - General 09/05/17 [id number] [place] [address] documented as of this encounter
--- OUTSIDE RECORDS SUMMARY | 2022-06-18 08:42 | XMS_ITS | Encounter Summary ---
:1985 Author Organization [place] Address [address] [place] [address]. [place] [address] Care Team Providers Name Role Phone [facility] Primary Care Provider [phone] Reason for Visit Auth/Cert - Closed Specialty Diagnoses / Procedures Referred By Contact Refer red To Contact Surgery Diagnoses Chronic Tonsilitis Rh Periop Services Procedures TONSILLECTOMY [address] [place] [address] [phone] Fax: Referral ID Status Reason Start Date Expiration Date Visits Requ ested Visits Authorized [id number] Closed 1 1 Encounter Details Date Type Department Care Team Description 02/18/2013 Hospital Encounter [facility] Tomasz Loya, Chronic tonsillitis Ridges Post MD (Primary Dx) Anesthesia Care [facility] [address] [place], [place] [address] [facility] [phone] [place] [address] [place], [place] [id number] Social History Tobacco Use Types Packs/Day Years Used Date Never Smoker Alcohol Use Standard Drinks/Week Comments Yes 0 (1 standard drink = 0.6 oz pure alcoho l) occ Sex Assigned at Date Recorded Not on file documented as of this encounter Last Filed Vital Signs Vital Sign Reading Time Taken Comments Blood Pressure 106/64 02/18/2013 4:00 PM CDT Pulse - - Temperature 36.9 ??C (98.4 ??F) 02/18/2013 4:00 PM CDT Respiratory Rate 16 02/18/2013 4:00 PM CDT Oxygen Saturation 98% 02/18/2013 4:00 PM CDT Inhaled Oxygen Concentration - - Weight 90.3 kg (199 lb) 02/18/2013 10:08 AM CDT Height 165.1 cm (5' 5) 02/18/2013 10:08 AM CDT Body Mass Index 33.12 02/18/2013 10:08 AM CDT documented in this encounter Discharge Instructions Discharge InstructionsSaniya Lange, RN - 02/18/2013 3:22 PM CDT TOOK ORAL PAIN MEDICINE, 5 ML AT 2:10 PM TONSILLECTOMY DISCHARGE INSTRUCTIONS [facility], Akbar Guzman M.D. Phill Kahn M.D. Jeff Henry M.D. Tomasz Loya M.D. 1. Patients should eat only soft foods for at least one week after surgery. 2. Avoid citrus juices (which may burn) or any food which might scratch the throat and cause bleeding. The sooner patients eat and chew, the sooner they will feel better. 3. If the patient is nauseated or vomiting give clear liquids only, and avoid dairy products or other fatty foods. Use plain Tylenol instead of the narcotic pain medication. Hold the narcotic until nausea has passed and oral intake has improved. When you restart the narcotic pain medication, stop the Tylenol. 4. Patients may run a fever for up to 10 days after surgery. This may occasionally be as high as 101degrees. Contact your physician for a persisting fever in this range. 5. Patients may complain of an earache. This is usually referred pain from the throat and may be especially prominent around day six or seven after surgery, which is often when throat pain from tonsillectomy peaks. 6. Tylenol may be substituted for your prescription pain medication. Do not give Tylenol in additionto your prescription because an overdose of acetaminophen may occur. Ibuprofen may in some cases be used to supplement your narcotic pain medication. Contact your surgeon prior to starting ibuprofen todiscuss if this is a good choice for you. There may be a slightly increased risk of post operative bleeding with ibuprofen use. 7. Observe patient for difficulty breathing which may be caused by airway swelling or sedation from narcotic pain medication. 8. Patients should avoid any strenuous activity such as heavy lifting, active sports or games for atleast two weeks. It is best to stay in the [facility] area for the two week healing period. 9. Notify the doctor if there is any bleeding. Bleeding may be helped by gargling ice water if possible. 10. White areas will appear in the back of the throat after the tonsils have been removed. This is normal and will gradually disappear. 11. The patient???s breath may have a foul odor. This may be present for ten days. 12. If you have any problems or questions, please call [phone], 24 hours a day. GENERAL ANESTHESIA OR SEDATION ADULT DISCHARGE INSTRUCTIONS SPECIAL PRECAUTIONS FOR 24 HOURS AFTER SURGERY IT IS NOT UNUSUAL TO FEEL LIGHT-HEADED OR FAINT, UP TO 24 HOURS AFTER SURGERY OR WHILE TAKING PAIN MEDICATION. IF YOU HAVE THESE SYMPTOMS; SIT FOR A FEW MINUTES BEFORE STANDING AND HAVE SOMEONE ASSIST YOU WHEN YOU GET UP TO WALK OR USE THE BATHROOM. YOU SHOULD REST AND RELAX FOR THE NEXT 24 HOURS AND YOU MUST MAKE ARRANGEMENTS TO HAVE SOMEONE STAY WITH YOU FOR AT LEAST 24 HOURS AFTER YOUR DISCHARGE. AVOID HAZARDOUS AND STRENUOUS ACTIVITIES. DO NOTMAKE IMPORTANT DECISIONS FOR [address] ANY VEHICLE OR OPERATE MECHANICAL EQUIPMENT FOR 24 HOURS FOLLOWING THE END OF YOUR SURGERY. EVEN THOUGH YOU MAY FEEL NORMAL, YOUR REACTIONS MAY BE AFFECTED BY THE MEDICATION YOU HAVE RECEIVED. DO NOT DRINK ALCOHOLIC BEVERAGES FOR 24 HOURS FOLLOWING YOUR SURGERY. DRINK CLEAR LIQUIDS (APPLE JUICE, MAGALYS KEL, 7-UP, BROTH, ETC.). PROGRESS TO YOUR REGULAR DIET YOU FEEL ABLE. YOU MAY HAVE A DRY MOUTH, A SORE THROAT, MUSCLES ACHES OR TROUBLE SLEEPING. THESE SHOULD GO AWAY AFTER 24 HOURS. CALL YOUR DOCTOR FOR ANY OF THE FOLLOWING: SIGNS OF INFECTION (FEVER, GROWING TENDERNESS AT THE SURGERY SITE, A LARGE AMOUNT OF DRAINAGE OR BLEEDING, SEVERE PAIN, FOUL-SMELLING DRAINAGE, REDNESS OR SWELLING. IT HAS BEEN OVER 8 TO 10 HOURS SINCE SURGERY AND YOU ARE STILL NOT ABLE TO URINATE (PASS WATER). TAKE LORTAB PRESCRIBED. 10-20 ML EVERY 4 HOURS NEEDED FOR PAIN. documented in this encounter Medications at Time of Discharge [...] Take 1 tablet by 12 tablet 1 02/1810/28/2021 8 MG disintegrating mouth every 4 hours tabletIndications: as needed for nausea. Chronic tonsillitis oxyCODONE-acetaminophen Take 5-10 mLs by 500 mL 0 201210/28/2021 (ROXICET) 5-325 MG/5ML mouth every 4 hours solutionIndications: as needed for pain. Chronic tonsillitis Pseudoephedrine HCl Take 60 mg by mouth 0 10/28/2021 (SUDAFED PO) every 4 hours as needed. documented as of this encounter H&P Notes Tomasz Loya MD - 02/17/2013 2:29 PM CDT documented in this encounter Nursing Notes Saniya Lange RN - 02/18/2013 3:26 PM CDT Roxicet prescription on AVS was not filled and patient not going home with it. Saniya Lange RN - 02/18/2013 3:22 PM CDT Roxicet not covered by patient's insurance. Patient requested to go home on something different for pain that would be covered. Spoke with Dr. Loya and he ordered Lortab for discharge. documented in this encounter Miscellaneous Notes Op Note - Tomasz Loya MD - 02/18/2013 1:25 PM CDT DATE OF SERVICE: 02/18/2013 PREOPERATIVE DIAGNOSES Chronic tonsillitis POSTOPERATIVE DIAGNOSES same SURGEON Tomasz Loya M.D. TITLE OF PROCEDURE Tonsillectomy. ANESTHESIA General endotracheal. ESTIMATED BLOOD LOSS 5 ml SPECIMENS both tonsils INDICATION FOR PROCEDURE Trinity Ayala is a 27 year old female who was referred by Dr. Jackson for evaluation and management of chronic tonsillitis. Because her symptoms were not improved with medical management, tonsillectomy was recommended. Surgical risks were explained including risk for postoperative bleeding, infection, and pain. DESCRIPTION OF PROCEDURE Preoperatively, the patient was identified and the procedure was confirmed. She was placed on the table in the supine position. General endotracheal anesthesia was induced without difficulty. The bed was turned 90 degrees. A shoulder roll and head drape were placed. The mouth gag was inserted in the patient's mouth, opened and then suspended from the Constantino stand. Both tonsils have an incredible amount of debris and very cryptic especially the right tonsil. The right tonsil was grasped with a curved Allis and mobilized medially and inferiorly. The monopolar cautery was used to dissect along the tonsillar capsule to free it from the anterior and posterior pillars taking care to preserve these muscles. Hemostasis was obtained with the spot use of bipolar cautery. After the tonsil had been removed, the left tonsil was removed in the identical fashion. Hemostasis was confirmed and copious saline was used and suctioned. The adenoid was inspected with a mirror and was found to be normal and small, and so was not removed. The mouth gag was released and after a moment re-suspended and there was no further bleeding. All instrumentationwas removed and then the patient was turned back towards anesthesia for awakening in the operating room and then transported to the Postanesthesia Care Unit in stable condition. There were no immediatecomplications. TOMASZ LOYA MD documented in this encounter Plan of Treatment Not on filedocumented as of this encounter Procedures Procedure Name Priority Date/Time Associated Comments Diagnosis SURGICAL PATHOLOGY Routine 02/18/2013 1:15 PM Res ults for this EXAM CDT procedure are i n the results section. TONSILLECTOMY 02/18/2013 12:51 Chronic Tonsilitis PM CDT Special Needs 5'5 / 199 lb - per H&P. HCG QUALITATIVE URINE STAT 02/18/2013 10:10 AM CDT documented in this encounter Results Surgical pathology exam (02/18/2013 1:15 PM CDT) Component Value Ref Test Analysis Performed At [facility] Range Method Time Signature Copath Report Patient Name: TRINITY AYALA MR#: [id number] Specimen #: [id number] Collected: 02/18/2013 Received: 02/18/2013 Reported: 02/19/2013 16:17 Ordering Phy(s): TOMASZ LOYA SPECIMEN(S): A: Tonsil, right B: Tonsil, left FINAL DIAGNOSIS: A. and B. ??Tonsils, right and left, bilateral tonsillectomy - ?1. ??Mild inflammation with benign lymphoid h yperplasia. ?2. ??Actinomyces organisms present. ?3. ??Negative for malignancy. Electronically signed out by: Kristine Arauz M.D. CLINICAL HISTORY: Chronic tonsillitis. GROSS: A. ??The specimen, labeled right tonsil, consists of forma donald-fixed morin to pink soft palatine tonsil measuring 3 cm x 2 cm x 1 cm. ? ?On serial sections, no gross lesions are identified. ??Oncology Rep section is submitted in one cassette. B. ??The specimen, labeled left tonsil, consists of formal in-fixed morin to pink to hemorrhagic soft palatine tonsil measuring 2.5 cm x 1.5 cm x 1 cm. ??On serial sections, no gross lesions are identified. Oncology Rep section is submitted in one cassette. ??MGP/s g MICROSCOPIC: A. and B. ??Microscopic examination is performed. SA/andreea DT/02-19-13 TESTING LAB LOCATION: [address] ??[phone] COLLECTION SITE: Client: [facility] Location: [facility] (R) Specimen Anatomical Collection Method Collection Time Receive d Time (Source) Location / / Volume Laterality 02/18/2013 1:15 PM 3 1:45 CDT PM CDT Tomasz Loya MD LAB - [facility] AP Performing Organization Address City/State/ZIP Code Phon e Number COPATH HCG qualitative urine (02/18/2013 10:10 AM CDT) P athologist Signature HCG Qual Urine Negative NEG [facility] Specimen Anatomical Collection Method Collection Time Receive d Time (Source) Location / / Volume Laterality Urine specimen URINE SPECIMEN / 02/18/2013 10:10 02/18 (specimen) Unknown AM CDT 10:23 AM CDT Allan Garrett MD LAB - URINE ORDERABLES Performing Organization Address City/State/ZIP Code Phon e Number M [facility] [address] [place], [place] [address] [facility] documented in this encounter Visit Diagnoses Diagnosis Chronic tonsillitis - Primary documented in this encounter Administered Medications Inactive Administered Medications - up to 3 most recent administrations Medication Order MAR Action Action Date Dose Rate Site fentaNYL (SUBLIMAZE) injection Given 02/18/2013 2:17 PM CDT 50 m cg 25-50 mcg 25-50 mcg, Intravenous, EVERY 2 MIN PRN, other, acute pain while in PACU., Starting on Sat02/18/13 at 1341, MAX cumulative dose = 250 mcg. Use Fentanyl initially, as a short acting agent for acute pain control. If insufficient, or a longer acting agent is needed, begin Morphine or Hydromorphone if ordered., PACU Given 02/18/2013 2:00 PM CDT 50 mcg oxyCODONE-acetaminophen (ROXICET) 5-325 MG/5ML Given 0 02/18/2013 2:10 PM CDT 5 mLs solution 5-10 mL 5-10 mL, Oral, EVERY 4 HOURS PRN, moderate to severe pain, Starting on Sat02/18/13 at 1410, PACU/Phase II documented in this encounter Active and Recently Administered Medications Times are shown in CDT. PRN Medication Order 02/16/2013 02/17/2013 02/18/2013 fentaNYL (SUBLIMAZE) injection 25-50 mcg (CANCELED) 1400 (Given - Provider: Ness Pineda RN)1417 (Given - Provider: Ness Pineda RN) 25-50 mcg, Intravenous, EVERY 2 MIN PRN, Starting Sat02/18/13 at 1341, other, acute pain while in PACU., MAX cumulative dose = 250 mcg. Use Fentanyl initially, as a short acting agent for acute pain con trol. If insufficient, or a longer actin g agent is needed, begin Morphine or Hydromorphone if ordered., PACU oxyCODONE-acetaminophen (ROXICET) 5-325 MG/5ML solution 5-10 mL (CANCELED) 1410 (Given - Provider: Ness Pineda RN) 5-10 mL, Oral, EVERY 4 HOURS PRN, modera te to severe pain, Starting Sat02/18/13 at 1410, PACU/Phase II sterile water (bottle) irrigation (CANCELED) 1323 (Given - Provider: Tomasz Loya MD - Comment: 50 mls. used as irrigation) PRN, Intra-procedure documented in this encounter Care Teams Category Planner Relationship Specialty Start Date End Date [facility] PCP - General 02/04/13 06/15/13 documented as of this encounter
--- OUTSIDE RECORDS SUMMARY | 2022-06-18 08:42 | XMS_ITS | Encounter Summary ---
:1985 Author Organization [employer] Address [address] [place] [id number] Care Team Providers Name Role Phone Unavailable Primary Care Provider Unavailable Reason for Visit Reason Comments Eye Problem Dizziness Encounter Details Date Type Department Care Team Description [facility]16[facility]2013 [facility] Emergency Dep t MD Minor Headache [address] [facility] EMERGENCY PHYSICIANS [facility] [id number] [address] [email or web address] [phone] [address] [place], [place] [id number] (Wo rk) Social History Tobacco Use Types Packs/Day Years Used Date Never Smoker Alcohol Use Standard Drinks/Week Comments Yes 0 (1 standard drink = 0.6 oz pure alcoho l) occ Sex Assigned at Date Recorded Not on file documented as of this encounter Last Filed Vital Signs Vital Sign Reading Time Taken Comments Blood Pressure 109/67 06/16/2013 10:15 AM CDT Pulse 57 06/16/2013 7:52 AM CDT Temperature 36.6 ??C (97.9 ??F) 06/16/2013 7:52 AM CDT Respiratory Rate 18 06/16/2013 7:52 AM CDT Oxygen Saturation 97% 06/16/2013 9:45 AM CDT Inhaled Oxygen Concentration - - Weight - - Height - - Body Mass Index - - documented in this encounter Discharge Instructions Discharge InstructionsMonroe Duncan MD - 06/16/2013 9:56 AM CDT Please make an appointment to follow up with your primary care provider and/or Dr. Anderson in 3-5 days if not improving. [place] should call you if seizure medication levels are abnormal Return to ER immediately if you develop: worsening pain, New severe headache, vision changes, extremity numbness/weakness/tingling, Fever > 101, persistent nausea or vomiting OR you have any other concerns about your health. Use Tylenol and/or Ibuprofen for pain or discomfort Zofran for nausea Home Back SP WEAKNESS [Uncertain cause] Based on your exam today, the exact cause of your weakness is not certain. However, your weakness does not seem to be a sign of a serious illness at this time. Sometimes the signs of a serious illness take more time to appear. Therefore, please watch for the warning signs listed below. HOME CARE: 1) Rest at home today. Do not over-exert yourself. 2) Take your medicine as prescribed. 3) For the next few days, drink extra fluids (unless your doctor wants you to restrict fluids for other reasons). Do not skip meals. FOLLOW UP with your doctor or as advised if you are not starting to feel better within TWO days. GET PROMPT MEDICAL ATTENTION if any of the following occur: Worsening of your symptoms Chest, arm, neck, jaw or upper back pain Dizziness or fainting Trouble breathing Unable to eat or drink normal amounts Nausea, frequent vomiting, frequent diarrhea Abdominal pain Numbness or weakness of the face, one arm or one leg Slurred speech, confusion, trouble speaking, walking or seeing Blood in vomit or stool (black or red color) Fever of 100.4?? F (38?? C) or higher, or as directed by your healthcare provider ?? [id number], [place] [address]. All rights reserved. This information is not intended as a substitute for professional medical care. Always follow your healthcare professional's instructions. documented in this encounter Medications at Time of Discharge Medication Sig Dispensed Refills Start Date End Date ACETAZOLAMIDE Take 500 mg by mouth 0 POIndications: Seizure 2 times daily. Indications: Seizure lamoTRIgine (LAMICTAL) Take 400 mg by mouth 0 200 MG tablet 2 times daily LEVETIRACETAM PO TABS Take 1,000 mg by 0 mouth 2 times daily. ondansetron (ZOFRAN ODT) Take 1 tablet (4 mg) 10 tablet 0 0 06/16/2013 06/19/2013 4 MG disintegrating by mouth every 8 tablet hours as needed for nausea levonorgestrel (MIRENA) 1 each by 0 0 [...] as needed. documented as of this encounter ED Notes Bobbi Otero RN - 06/16/2013 7:53 AM CDT Pt states she has seizure disorder. Missed keppra doses 1000 mg twice per day, Saturday and Saturday. Also takes Diamox 500 mg 1 tablet twice daily, Lamictal 200 mg at 0200 and 1400 daily. Took extra dose Lamictal on Saturday and Saturday since she missed Keppra. Pt states she has double vision and tunnelvision, eyes are having trouble focusing eyes are rolling. No fever, diarrhea. Reports being dizzy on and of past few days. States she feels is lost 10 lbs over two wk period. Monroe Duncan MD - 06/16/2013 7:47 AM CDT History Chief Complaint: Weakness/lightheadedness HPI Trinity Ramirez is a 27 year old female who presents to the ED for evaluation of weakness/lightheadedness. Three days ago the patient moved into a new apartment. She notes that on that day she forgot to take her Keppra, so she did take two of her Lamictal to replace the missing Keppra. Two days ago, when she took her Keppra she noticed she felt dizzy after taking the Keppra and had mildly blurryvision. After about half an hour her symptoms resolved themselves. Yesterday she had repeat symptomsafter taking her Keppra, so she was seen at [facility] where they edinson her Keppra and told her they would call her. Today the patient had repeat symptoms after taking her Keppra, and began to feel weak, havehot flashes, and felt nauseous like speaking was difficult. Due to her worsening symptoms today the patient decided to come into the ED for evaluation. Currently the patient denies any pain associated with her symptoms. The patient notes that when she checked her weight yesterday she thinks she lost around ten pounds over a two week period despite the fact that she ate quite a bit of junk food. The mother notes that the patient's new apartment kind of smells like paint and is concerned that this is what is actually causing the symptoms. Otherwise the patient denies any fever, chills, vomiting, SOB, cough, headache, numbness, or any other physical complaints. Allergies: No Known Allergies Medications: Lamictal Mirena Keppra Levetiracetam Keppra Acetazolamide Pseudoephedrine HCl Past Medical History: Seizures Genital herpes Past Surgical History: [place] teeth removed Tonsillectomy Family/Social History: The patient denies any significant past family history. Relationship status: Single The patient denies any tobacco use. Occasionally drinks alcohol. PMD is Dr. Burkett Review of Systems Constitutional: Positive for unexpected weight change. Negative for fever and chills. Eyes: Positive for visual disturbance. Respiratory: Negative for cough and shortness of breath. Gastrointestinal: Positive for nausea. Negative for vomiting. Neurological: Positive for speech difficulty, weakness and light-headedness. Negative for numbness and headaches. All other systems reviewed and are negative. Physical Exam First Vitals: Blood pressure: 115/94 Pulse: 57 Respiration rate: 18 SpO2: 99% Temperature: 97.9 Physical Exam Nursing note and vitals reviewed. Constitutional: nontoxic appearing HENT: Right Ear: External ear normal. Left Ear: External ear normal. Nose: Nose normal. Mouth/Throat: Oropharynx is clear and moist and mucous membranes are normal. Eyes: Conjunctivae normal, EOM and lids are normal. Pupils are equal, round, and reactive to light. No scleral icterus. Pupils 4 mm. Visual acuity intact Neck: Normal range of motion. No tracheal deviation present. Cardiovascular: Regular rhythm and intact distal pulses. Pulmonary/Chest: Breath sounds normal. No respiratory distress. Abdominal: Soft. There is no tenderness. There is no rebound and no guarding. Musculoskeletal: No peripheral edema Neurological: She has normal strength. No sensory deficit. She displays a negative Romberg sign. Gait normal. GCS eye subscore is 4. GCS verbal subscore is 5. GCS motor subscore is 6. CN II-XII intact and symmetric Strength 5/5 BUE including intrinsic hand muscles. Strength 5/5 BLE, SILT all extremities. Negative pronator drift Gait Normal Coordination intact Skin: Skin is warm and dry. Psychiatric: She has a normal mood and affect. Emergency Department Course ECG @ 8:10 Rate 57 bpm. WA interval 146 ms. QRS duration 80 ms. QT/QTc 406/395 ms. P-R-T axes 50. Notes: Sinus bradycardia. Otherwise normal ECG. Time read 8:14 Imaging: Laboratory: CO: 1.2 (WNL) CBC: WBC 5.2 (WNL) HGB 12.7 (WNL) PLT 272 (WNL) BMP: Cr 1.10 (H) Na 145 (H) Cl 110 (H) Rest WNL UA: Slightly cloudy, yellow urine; Blood (A) Protein albumin 10 (A) Leukocyte esterase (A) USQUE 8 (H) Mucous (A) HCG qualitative urine: Negative ED Course: The patient was roomed. The patient's medical charts were reviewed and I examined the patient. I discussed the plan of care with the patient which included EKG, imaging studies, and laboratory work. The patient was placed on continuous cardiac rehabilitation specialist and pulse oximetry. IV was inserted and blood was drawn. Impression & Plan Medical Decision Making: This is a 27 y.o. female with a hsitory of seizure disorder on Lamictal and Keppra who presents withgeneralized weakens. She ahs had multiple episodes of what sounds like presyncope, but no actual syncopal episodes. She has moved into a new apartment and has been around paint fumes. She also took oneextra tablet of Lamictal two days ago due to not taking her Keppra. For the last two days she has been taking her medications as prescribed. She had blood levels drawn of her seizure medicines, but we do not yet know the results here in the ED. She ahs a normal neurologic examination here. This is likely a medication side effect or environmental. We will do basic blood work with labs that can be seenabove. If the blood work is unremarkable and the ECG shows no significant findings I believe she will be stable for discharge to home. We will contact [facility] concerning her seizure drug levels. I have a low suspicion for cardiac etiology or significant cranial etiology. Patient and mother are comfortable with this plan. Pt improved with interventions in ER, labs unremarkable including carbon monoxide, ecg with no ischemia or malignant arrhythmia. [facility] stated labs still pending. Pt updated on findings and comfortable going home. Diagnosis: 1. Generalized weakness 2. Headache ITommie am serving as a scribe on 06/16/2013 at 7:52 AM to personally document services performed by Dr. Duncan based on my observations and the provider's statements to me. Monroe Duncan MD 06/16/132010 documented in this encounter Plan of Treatment Not on filedocumented as of this encounter Procedures Procedure Name Priority Date/Time Associated Comments Diagnosis CARBON MONOXIDE STAT 06/16/2013 8:55 AM Result s for this CDT procedure are i n the results section. HCG QUALITATIVE URINE STAT 06/16/2013 8:34 AM Results for this CDT procedure are i n the results section. ROUTINE UA WITH STAT 06/16/2013 8:34 AM Result s for this MICROSCOPIC CDT procedure are i n the results section. BASIC METABOLIC PANEL STAT 06/16/2013 8:12 AM Results for this CDT procedure are i n the results section. CBC WITH PLATELETS STAT 06/16/2013 8:12 AM Res ults for this CDT procedure are i n the results section. EKG 12-LEAD, TRACING STAT 06/16/2013 8:10 AM R esults for this ONLY CDT procedure are i n the results section. documented in this encounter Results Carbon monoxide (06/16/2013 8:55 AM CDT) P athologist Signature Carbon Monoxide 1.2 0 - 2 % [facility] Specimen Anatomical Collection Method Collection Time Receive d Time (Source) Location / / Volume Laterality Blood specimen 06/16/2013 8:55 AM 013 8:56 (specimen) CDT AM CDT Monroe Duncan MD LAB - BLOOD ORDERABLES Performing Organization Address City/State/ZIP Code Phon e Number [place] [address] [place], [place] [phone] [place] [address] LAB HCG qualitative urine (06/16/2013 8:34 AM CDT) P athologist Signature HCG Qual Urine Negative NEG [facility] Specimen Anatomical Collection Method Collection Time Receive d Time (Source) Location / / Volume Laterality Urine specimen 06/16/2013 8:34 AM 013 8:38 (specimen) CDT AM CDT Monroe Duncan MD LAB - URINE ORDERABLES Performing Organization Address City/[facility] Phon e Number [place] [address] [place], [place] [address] [address] [phone] [place] [address] LAB (ABNORMAL) UA with Microscopic (06/16/2013 8:34 AM CDT) Patholo gist Method Time Signature Color Urine Yellow [facility] Appearance Urine Slightly [place] Cloudy [facility] Glucose Urine Negative NEG mg/dL [facility] Bilirubin Urine Negative NEG [facility] Ketones Urine Negative NEG mg/dL [facility] Specific [place] 1.019 1.003 - [place] Urine 1.035 [facility] Blood Urine Small (A) NEG [facility] pH Urine 6.0 5.0 - 7.0 [place] pH [facility] Protein Albumin 10 (A) NEG mg/dL [facility] Urobilinogen Normal 0.0 - 2.0 [place] mg/dL mg/dL [facility] Nitrite Urine Negative NEG [facility] Leukocyte Small (A) NEG [place] Esterase Urine [facility] Source Midstream [place] Urine [facility] WBC Urine 2 0 - 2 [facility] RBC Urine 1 0 - 2 [facility] Squamous 8 (H) 0 - 1 [place] Epithelial /HPF /HPF [facility] Transitional Epi <1 0 - 1 [facility] Mucous Urine Present (A) NEG /LPF [facility] Specimen Anatomical Collection Method Collection Time Receive d Time (Source) Location / / Volume Laterality Urine specimen 06/16/2013 8:34 AM 013 8:38 (specimen) CDT AM CDT Monroe Duncan MD LAB - URINE ORDERABLES Performing Organization Address City/[facility] Code Phon demetria Jeffery [facility] [address] [place], [place] [address] [facility] LAB (ABNORMAL) Basic metabolic panel (BMP) (06/16/2013 8:12 AM CDT) Analysis Performed At Patho logist Time Signature Sodium 145 (H) 133 - 144 [place] mmol/L [facility] Potassium 3.7 3.4 - 5.3 [place] mmol/L [facility] Chloride 110 (H) 94 - 109 [place] mmol/L [facility] Carbon Dioxide 21 20 - 32 [place] mmol/L [facility] Anion Gap 14 6 - 17 [place] mmol/L [facility] Glucose 85 60 - 99 [place] mg/dL [facility] Urea Nitrogen 12 5 - 24 [place] mg/dL [facility] Creatinine 1.10 (H) 0.52 [facility] 1.[facility] mg/dL [facility] GFR Estimate 61 >60 [place] mL/min/1.[address] LAB GFR Estimate If 73 >60 [place] Black mL/min/[address] [place] [address] LAB Calcium 9.1 8.5 - 10.4 [place] mg/dL [facility] Specimen Anatomical Collection Method Collection Time Receive d Time (Source) Location / / Volume Laterality Blood specimen 06/16/2013 8:12 AM 013 8:15 (specimen) CDT AM CDT Monroe Duncan MD LAB - BLOOD ORDERABLES Performing Organization Address [facility]/ZIP [place] Phon e Jose D [facility] [address] [place], [place] [address] [facility] CBC (platelets, no diff) (06/16/2013 8:12 AM CDT) P athologist Signature WBC 5.2 4.0 - 11.0 [place] 10e9/L [facility] RBC Count 4.27 3.8 - 5.2 [place] 10e12/L [facility] Hemoglobin 12.7 11.7 - [place] 15.7 g/dL [facility] Hematocrit 39.6 35.0 - [place] 47.0 % [facility] MCV 93 78 - 100 [place] fl [facility] MCH 29.7 26.5 - [place] 33.0 pg [facility] MCHC 32.1 31.5 - [place] 36.5 g/dL [facility] RDW 13.7 10.0 - [place] 15.0 % [facility] Platelet Count 272 150 - [address] LAB Specimen Anatomical Collection Method Collection Time Receive d Time (Source) Location / / Volume Laterality Blood specimen 06/16/2013 8:12 AM 013 8:15 (specimen) CDT AM CDT Monroe Duncan MD LAB - BLOOD ORDERABLES Performing Organization Address City/State/ZIP Code Phon e Number [place] [address] [facility] EKG 12 lead (06/16/2013 8:10 AM CDT) Patholo gist Method Time Signature Interpretation ECG Click View RADIOLOGY Image link RESULTS to view waveform and result Specimen (Source) Anatomical Collection Method Collection Time Re ceived Time Location / / Volume Laterality 06/16/2013 8:10 AM CDT Monroe Duncan MD ECG ORDERABLES Performing Organization Address City/State/ZIP Code Phon e Number RADIOLOGY RESULTS documented in this encounter Visit Diagnoses Diagnosis Generalized weakness - Primary Other malaise and fatigue Headache(784.0) Headache documented in this encounter Administered Medications Inactive Administered Medications - up to 3 most recent administrations Medication Order MAR Action Action Date Dose Rate Site diphenhydrAMINE (BENADRYL) Given 06/16/2013 9:45 AM CDT 25 mg injection 25 mg 25 mg, Intravenous, ONCE, On Sat06/16/13 at 0945, For 1 dose ketorolac (TORADOL) injection 30 mg Given 06/16/2013 8:49 AM CDT 30 mg 30 mg, Intravenous, ONCE, On Sat06/16/13 at 0815, For 1 dose ondansetron (ZOFRAN) injection 4 mg Given 06/16/2013 8:49 AM CDT 4 mg 4 mg, Intravenous, ONCE, Administer over 2-5 Minutes, On Sat06/16/13 at 0830, For 1 dose prochlorperazine (COMPAZINE) 5 MG/ML inj ection Starting on Sat06/16/13 at 0945, For 1 dose, BOBBI OTERO: cabinet override prochlorperazine (COMPAZINE) injection 1 0 mg Given 06/16/2013 9:44 AM CDT 10 mg 10 mg, Intravenous, ONCE, On Sat06/16/13 at 0945, For 1 dose sodium chloride 0.9 % [place] 1,000 mL New Bag 06/16/2013 8:12 AM CDT 1,000 mLs Intravenous, 1,000 mL, ONCE, On Sat06/16/13 at 0815, For 1 dose documented in this encounter Active and Recently Administered Medications Times are shown in CDT. Scheduled Medication Order 06/14/2013 06/15/2013 06/16/2013 diphenhydrAMINE (BENADRYL) injection 25 mg (COMPLETED) 45 (Given - Provider: Bobbi Otero RN) 25 mg, Intravenous, ONCE, Sat06/16/13 at 0945, For 1 dose ketorolac (TORADOL) injection 30 mg (COMPLETED) 848 (Given - Provider: Bbobi Otero RN) 30 mg, Intravenous, ONCE, Sat06/16/13 at 0815, For 1 dose ondansetron (ZOFRAN) injection 4 mg (COMPLETED) 49 (Given - Provider: Bobbi Otero RN) 4 mg, Intravenous, ONCE, for 2 Minutes, Sat06/16/13 at 0830, For 1 dose prochlorperazine (COMPAZINE) injection 10 mg (COMPLETED) 44 (Given - Provider: Bobbi Otero RN) 10 mg, Intravenous, ONCE, Sat06/16/13 at 0945, For 1 dose sodium chloride 0.9 % BOLUS 1,000 mL (COMPLETED) 0812 (New Bag - Provider: Bobbi Otero RN)1019 (Stopped - Provider: Bobbi Otero RN) Intravenous, 1,000 mL, ONCE, On Sat06/16/13 at 0815, For 1 dose documented in this encounter
--- OUTSIDE RECORDS SUMMARY | 2022-06-18 08:42 | XMS_ITS | Encounter Summary ---
:1985 Author Organization [employer] Address [address] [place] [address]. [place] [address] Care Team Providers Name Role Phone 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 documented as of this encounter Plan of Treatment Not on filedocumented as of this encounter Visit Diagnoses Not on filedocumented in this encounter Care Teams Manager Urgent Care Relationship Specialty Start Date End Date [facility] PCP - General 09/05/17 [id number] [address] [place], [place] [phone] documented as of this encounter
--- OUTSIDE RECORDS SUMMARY | 2022-06-18 08:42 | XMS_ITS | Encounter Summary ---
:1985 Author Organization [place] Address [address] [place] [address] Care Team Providers Name Role Phone [facility] Primary Care Provider [phone] Reason for Referral Diagnostic Imaging Ultrasound (Routine) - Pending Review Specialty Diagnoses / Procedures Referred By Contact Refer red To Contact Diagnoses related condition, antepartum Peterson Pearson Procedures [facility] [address] [place] [address] Referral ID Status Reason Start Date Expiration Date Visits V isits Requested Authorized [id number] Pending 10/24/2021 10/24/2022 1 1 Review AL MEDIA PROJECT MANAGER Reason for Visit Diagnostic Imaging Ultrasound (Routine) - Pending Review Specialty Diagnoses / Procedures Referred By Contact Refer red To Contact Diagnoses related condition, antepartum Peterson Pearson Procedures [facility] [address] [place] [address] Referral ID Status Reason Start Date Expiration Date Visits V isits Requested Authorized [id number] Pending 10/24/2021 10/24/2022 1 1 Review Encounter Details Date Type Department Care Team Description 10/26/2021 Hospital Encounter [facility] Abbi Pearson garfield related Maternal Peterson Becerra condition, [facility] antepartum [facility] [address] [place] [address] [phone] Social History Tobacco Use Types Packs/Day Years Used Date Never Smoker Alcohol Use Standard Drinks/Week Comments Yes 0 (1 standard drink = 0.6 oz pure alcoho l) occ Sex Assigned at Date Recorded Not on file COVID-19 Exposure Response Date Recorded In the last month, have you been in contact with No / Unsure 10/26/2021 1:52 PM 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 documented as of this encounter Medications at [...] Procedure Name Priority Date/Time Associated Comments Diagnosis [facility] COM[facility]ENSIVE Routine 10/26/2021 3:29 PM rela estelita Results for this SINGLE SOCIAL MEDIA PROJECT MANAGER condition, procedure are i n antepartum the results section. documented in this encounter Results [facility] Comprehensive Single (10/26/2021 3:29 PM SOCIAL MEDIA PROJECT MANAGER) Anatomical Region Laterality Modality Ultrasound Specimen (Source) Anatomical Collection Method Collection Time Re ceived Time Location / / Volume Laterality 10/26/2021 1:55 PM SOCIAL MEDIA PROJECT MANAGER Impressions 10/26/2021 5:17 PM SOCIAL MEDIA PROJECT MANAGER IMPRESSION 1) Eduardo intrauterine at 2 1w [...] of growth restriction. Narrative 10/26/2021 5:17 PM SOCIAL MEDIA PROJECT MANAGER Comprehensive Pat. Name: JAMIE TRINITYNIXON Dimas Chet e: 10/26/2021 1:55pm Pat. NO: [id number] Referring ??: SETH FRAGOSO Site: [facility] Sales Contracts Analyst: Marya Moy RDMS : 1985 Age: 36 INDICATION Multiple anomalies on outside ultrasound . METHOD Transabdominal ultrasound examination. V iew: Sufficient Eduardo . Number of fetuses: 1 DATING ? Date ?Details ?Gest. age ?STONE LMP ?05/25/2021 ? 22 w + 0 d ? 03/01/2022 Prior assessment ? 10 / ? GA: 7 w + 6 d [...] Biometry: BPD ?49.2 ?mm ? 20w 6d ?Hadlock OFD ?59.5 ?mm ? 19w 3d ?Nicolaides HC ?173.4 ?mm ?19w 6d ?Hadlock Cerebellum tr ?20.4 ? mm ?19w 3d ?Nicolaides AC ?150.1 ?mm ?20w 2d ?17% ?Hadlock Femur ?29.8 ? mm ?19w 1d ?Hadlock Humerus ?28.6 ?mm ? 19w 2d ?Schuyler Weight Calculation: EFW ? 315 ? g ? 4% ?Hadlock EFW (lb,oz) ? 0 lb 11 ? oz EFW by ?Hadlock ([id number]) Head / Face / Neck Biometry: Scientist/Engineer ? 4.8 ? mm CM ?5.4 ? [...] Heart / Thorax ?Situs. Ductal arch view. 1-vfiytj-ktabjxs view. Cardiac position. Cardiac size. Cardiac rhythm. [...] scheduled of induction of la bor through [facility]. Trinity would like to proceed with [...] Thank you for the opportunity to partici hayes in the care of this patient. If you have questions regarding today's evaluation or if we can be of further service, please contact the [facility]. anomalies may be present but not detected Procedure Note Ce Andersen MD - 10/26/2021Form atting of this note might be different from the original. Comprehensive Pat. Name:Zena AYALAshanthidaivd Date: 10/26/2021 1:55pm Pat. NO: [id number] MD:PETERSON MEDINA [facility]Marya Moy RD MS :1985Age:36 INDICATION Multiple anomalies [...] 0 lb 11 oz EFW by Hadlock ([id number]) Head / Face / Neck Biometry: Scientist/Engineer 4.8 mm CM 5.4 mm Nasal bone [...] Heart / Thorax Situs. Ductal arch view. 0-wgdqdw-towdrdy view. Cardiac position. Cardiac size. Cardiac rhythm. [...] RECOMMENDATION We discussed the findings [facility] with the patient. Trinity was referred to our office for an comprehensive ultrasound to confirm the findings on previous outside ultrasound. The couple were previously counseled regarding the multiple anomalies a nd have decided to proceed with termination of . She is scheduled to see Dr. Martínez later today to further discuss the process and scheduled of induction of la bor through [facility]. Trinity would like to proceed with [...] to the finding of growth restriction. Peterson Medina Addi [facility] ORDERABLES documented in this encounter Visit Diagnoses Diagnosis related condition, antepartum documented in this encounter Care Teams Net Trainer Relationship Specialty Start Date End Date [facility] PCP - General 09/05/17 [address] [place], [place] [phone] documented as of this encounter
--- OUTSIDE RECORDS SUMMARY | 2022-06-18 08:42 | XMS_ITS | Encounter Summary ---
:1985 Author Organization [place] Address [address] [place] [address]. [place] [address] Care Team Providers Name Role Phone [facility] Primary Care Provider Gia Martínez MD Unavailable [phone] Reason for Visit Auth/Cert Specialty Diagnoses / Procedures Referred By Contact Refer red To Contact care program director Diagnoses Encounter for induction of labor Maternity elizabeth: 03/07/22 IOL Encounter for induction of labor [facility] [address] [place] [phone] Phone: Referral ID Status Reason Start Date Expiration Date Visits Requ ested Visits Authorized [id number] 1 1 Encounter Details Date Type Department Care Team Description 10/28/2021 Anesthesia Event [facility] Aysha Schmitz MD [address] [place], [place] [id number] [facility] Charley Oliveira MD [address] [place], [place] [address] [address] [place] [phone] Anesthesia Record Procedure Summary Procedure Name Responsible Anesthesia Start Time Anesthesia Stop Time Anesthesiologist LABOR ANALGESIA Aysha Schmitz MD 10/28/21 1651 10/08 12/26 0747 Events Date Time Event Comment 10/28/2021 1651 An Start 1651 AN FACE TIME IN 1706 An Facetime Out 10/29/2021 0747 An Stop Electronically s igned by Gia Martínez MD on October 29 8:56 AM Name Total 0.125% bupivacaine (Epidural) 8 mL Agents No agents on file. Blood No blood administrations on file. Lines, Drains, and Airways Type Details Placement Removal Peripheral IV 10/28/21; 1020; 18 G; 10/28/21 1020 by 10/29/21 1553 by B Garza; Distal, Bianka Hutson Inpatient, Nurse Left, Dorsal; Lower L, RN forearm; Chlorhexidine; None; Tolerated well Epidural 10/28/21; 1718; 10/28/21 1718 by 10/29/21 0930 b y Epidural; Anabel Sheets RN Caldwe ll, Christine RN; Tip intact L, RN Mechanical Ripening 10/28/21; 2215; Mireles 10/28/21 2215 by 10/29 0604 by Device Bulb; None; Epidural; Anabel Busby RN Laing, Stephanie N, Dr. Jafari; 10/29/21; RN 0604 Urethral Catheter 10/29/21; 0200; No; 10/29/21 0200 by 10/29/21 0930 by Epidural/Intrathecal Trinity Burton [place] l, Christine Catheter; 16 fr RN Laura, RN documented in this encounter Social History Tobacco Use Types Packs/Day Years Used Date Never Smoker Smokeless Tobacco: Never Used Alcohol Use Standard Drinks/Week Comments Not Currently 0 (1 standard drink = 0.6 oz pure alcoho l) occ Sex Assigned at Date Recorded Not on file COVID-19 Exposure Response Date Recorded In the last month, have you been in contact with No / Unsure 10/28/2021 8:34 AM FINANCE ANALYST someone who was confirmed or suspected to have Coronavirus / COVID-19? documented as of this encounter OR Notes Anesthesia Preprocedure Evaluation - Aysha Schmitz MD - 10/29/2021 7:30 PM CST Anesthesia Pre-Procedure Evaluation Patient: Trinity Ramirez : 1985 Preoperative Diagnosis: * No pre-op diagnosis entered * Procedure : * No procedures listed * Past Medical History: Diagnosis Date ??? Genital herpes ??? Seizures (H) last one was about a year ago Past Surgical History: Procedure Laterality Date ??? BEAN SORTER SURGERY 4th degree vaginal laceration ? ? HEAD & NECK SURGERY wisdom teeth removed ??? TONSILLECTOMY 02/18/2013 Procedure: TONSILLECTOMY; Tonsillectomy; Surgeon: Ronald Loya MD; Location: [facility] OR No Known Allergies Social History Tobacco Use ??? Smoking status: Never Smoker ??? Smokeless tobacco: Never Used Substance Use Topics ??? Alcohol use: Not Currently Comment: occ Wt Readings from Last 1 Encounters: 10/28/21 79.4 kg (175 lb) Anesthesia Evaluation Pt has had prior anesthetic. No history of anesthetic complications ROS/MED HX ENT/Pulmonary: - neg pulmonary ROS (-) tobacco use Neurologic: (+) seizures, Cardiovascular: - neg cardiovascular ROS METS/Exercise Tolerance: Hematologic: - neg hematologic ROS Musculoskeletal: - neg musculoskeletal ROS GI/Hepatic: - neg GI/hepatic ROS Renal/Genitourinary: Endo: - neg endo ROS Psychiatric/Substance Use: - neg psychiatric ROS Infectious Disease: Comment: Genital herpes COVID test (-) 10/28/2021 Malignancy: - neg malignancy ROS Other: Physical Exam Airway Mallampati: II TM distance: > 3 FB Neck ROM: full Mouth opening: > 3 cm Respiratory Devices and Support Dental no notable dental history Cardiovascular cardiovascular exam normal Pulmonary pulmonary exam normal OUTSIDE LABS: CBC: Lab Results Component Value Date WBC 9.6 10/28/2021 WBC 8.4 10/28/2021 HGB 11.1 (L) 10/28/2021 HGB 12.0 10/28/2021 HCT 32.7 (L) 10/28/2021 HCT 36.7 10/28/2021 PLT 229 10/28/2021 PLT 247 10/28/2021 BMP: Lab Results Component Value Date NA 141 09/05/2017 NA 145 (H) 06/16/2013 POTASSIUM 3.7 09/05/2017 POTASSIUM 3.7 06/16/2013 CHLORIDE 114 (H) 09/05/2017 CHLORIDE 110 (H) 06/16/2013 CO2 20 09/05/2017 CO2 21 06/16/2013 BUN 13 09/05/2017 BUN 12 06/16/2013 CR 0.98 09/05/2017 CR 1.10 (H) 06/16/2013 GLC 93 09/05/2017 GLC 85 06/16/2013 COAGS: No results found for: PTT, INR, FIBR POC: Lab Results Component Value Date HCG Negative 06/16/2013 HCGS Negative 07/24/2007 HEPATIC: Lab Results Component Value Date ALBUMIN 4.0 09/05/2017 PROTTOTAL 7.4 09/05/2017 ALT 16 09/05/2017 AST 13 09/05/2017 ALKPHOS 65 09/05/2017 BILITOTAL 0.6 09/05/2017 OTHER: Lab Results Component Value Date VIRGEN 8.9 09/05/2017 AMYLASE 62 07/24/2007 SED 8 07/24/2007 Anesthesia Plan ASA Status: 2 Anesthesia Type: Epidural. Consents Anesthesia Plan(s) and associated risks, benefits, and realistic alternatives discussed. Questions answered and patient/software support representative(s) expressed understanding. 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 Patient requested epidural catheter for labor, completed on10/28/[address] Oliveira. Aysha Contreras MD NCE ANALYST Anesthesia Procedure Notes - Charley Oliveira MD - 10/28/2021 6:50 PM FINANCE ANALYST Associated Order(s): Epidural Block Epidural catheter Procedure Note Pre-Procedure Staff - Anesthesiologist: Charley Oliveira MD Performed By: anesthesiologist Location: OB Pre-Anesthestic Checklist: patient identified, IV checked, risks and benefits discussed, informed consent, monitors and equipment checked, pre-op evaluation, at physician/surgeon's request and post-oppain management Timeout: Correct Patient: Yes Correct Procedure: Yes Correct Site: Yes Correct Position: Yes Procedure Documentation Procedure: epidural catheter Patient Position: sitting Skin prep: Chloraprep Local skin infiltrated with mL of 1% lidocaine. Insertion Site: L3-4. (midline approach). Technique: LORT saline NIDA at 5.5 cm. Needle Type: Touhy needle Needle Gauge: 17. Needle Length (Inches): 3.5 Catheter: 19 G. Catheter threaded easily. # of attempts: 1 and # of redirects: 0 Assessment/Narrative Paresthesias: No. Test dose of 3 mL lidocaine 1.5% w/ 1:200,000 epinephrine at 17:01 FINANCE ANALYST. Test dose negative, 3 minutes after injection, for signs of intravascular, subdural, or intrathecalinjection. Insertion/Infusion Method: LORT saline No aspiration negative for Heme or CSF via Epidural Catheter. Medication(s) Administered 0.125% bupivacaine (Epidural), 8 mL Medication Administration Time: 10/28/2021 5:03 PM NCE ANALYST documented in this encounter Plan of Treatment Not on filedocumented as of this encounter Procedures Procedure Name Priority Date/Time Associated Diagnosis Comme nts ANE EPIDURAL BLOCK Routine 10/28/2021 5:03 PM Res ults for this FINANCE ANALYST procedure are i n the results section. documented in this encounter Results FV AN EPIDURAL DUMMY PERFORMABLE (10/28/2021 5:03 PM FINANCE ANALYST) Narrative Charley Oliveira MD - 10/28/2021 5:03 PM FINANCE ANALYST Charley Oliveira MD ? 10/28/2021 ??6:51 PM Epidural catheter Procedure Note Pre-Procedure Staff - ? Anesthesiologist: ??Scarlett Oliveira MD ? Performed By: anesthesiologist ? Location: OB ? Pre-Anesthestic Checklist: patien t identified, IV checked, risks and benefits discussed, informed consent, mo nitors and equipment checked, pre-op evaluation, at physician/surgeon' s request and post-op pain management Timeout: ? Correct Patient: Yes ? Correct Procedure: Yes ? Correct Site: Yes ? Correct Position: Yes Procedure Documentation Procedure: epidural catheter ? Patient Position: sitting ? Skin prep: Chloraprep ?Local skin infiltrated with mL of 1% lidocaine. ? Insertion Site: L3-4. (midline ap proach). ? Technique: LORT saline ? NIDA at 5.5 cm. ? Needle Type: Touhy needle ? Needle Gauge: 17. ? Needle Length (Inches): 3.5 ? Catheter: 19 G. ? Catheter threaded easily. ? # of attempts: 1 and ??# of redir ects: ??0 Assessment/Narrative ? Paresthesias: No. ? Test dose of 3 mL lidocaine 1.5% w/ 1:200,000 epinephrine at 17:01 FINANCE ANALYST. ? Test dose negative, 3 minutes aft er injection, for signs of intravascular, subdural, or intrathecal injection. ? Insertion/Infusion Method: LORT s asher ? No aspiration negative for Heme o r CSF via Epidural Catheter. Medication(s) Administered 0.125% bupivacaine (Epidural), 8 mL Medication Administration Time: 5:03 PM Charley Oliveira MD [place] ANESTHESIA documented in this encounter Visit Diagnoses Not on filedocumented in this encounter Administered Medications Inactive Administered Medications - up to 3 most recent administrations Medication Order MAR Action Action Date Dose Rate Site bupivacaine (MARCAINE) 0.125 % Given 10/28/2021 5:03 PM FINANCE ANALYST 8 mL s injection (diluted from stock concentration by or PLATE CUTTER) EPIDURAL, Starting on 10/28/21 at 1703, Anesthesia Intra-op documented in this encounter Care Teams Coal Briquette Machine Operator Relationship Specialty Start Date End Date [facility] PCP - General [facility]/05/17 [id number] [facility] [place], [place] [phone] Gia Martínez MD Assigned OBGYN Provider 10/29/[address] [place] [address] documented as of this encounter
--- OUTSIDE RECORDS SUMMARY | 2022-06-18 08:42 | XMS_ITS | Encounter Summary ---
:1985 Author Organization [place] Address [address] [place] [address]. 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 Post-traumatic headache Injury, head, se quela Benign essential tremor KEPPRA Routine 01/16/2018 7:25 Nonintractable Results fo r this (LEVETIRACETAM) AM CDT generalized idiopathic pr ocedure are in LEVEL epilepsy with status the res ults epilepticus (H) section. Post-traumatic headache Injury, head, se quela Benign essential tremor documented in this encounter Results Keppra (Levetiracetam) Level (01/16/2018 7:25 AM CDT) P athologist Signature Keppra 12 12 - 46 01/17/2018 [facility] (Levetiracetam) ug/mL 1:17 AM CDT [facility] Comment: (Note) INTERPRETIVE INFORMATION: Keppra (Leveti racetam) Therapeutic Range: ??12-46 ug/mL ? Toxic: ??Not well Establ ished Pharmacokinetics of levetiracetam are af fected by renal function. Adverse effects may include so mnolence, weakness, headache and vomiting. Performed by [facility], [address] [place] [address],[place] [address] [facility], Francisco Rubio MD, Lab. Director Specimen Anatomical Collection Method Collection Time Receive d Time (Source) Location / / Volume Laterality Blood specimen 01/16/2018 7:25 AM 018 7:31 (specimen) CDT AM CDT Eli Barnhart MD LAB - BLOOD ORDERABLES Performing Organization Address City/[facility] Code Phon e Number M [facility] [address] [place], [place] [address] [facility] [address] [place], [place] [address], [facility] [phone] Lamotrigine Level (01/16/2018 7:25 AM CDT) athologist Signature Lamotrigine 4.8 2.5 - 15.0 01/17/2018 [place] Level ug/mL 1:17 AM CDT [facility] Comment: (Note) INTERPRETIVE INFORMATION: ??Lamotrigine Therapeutic Range: ??2.5-15.0 ug/mL ? Toxic: ??Not well establ ished Pharmacokinetics varies widely, particul leon with co-medications and/or compromised renal function. ??Adverse effects may include dizziness, somnolenc e, nausea and vomiting. Performed by [facility], [address] [place] [address] [facility], Francisco Rubio MD, Lab. Director Specimen Anatomical Collection Method Collection Time Receive d Time (Source) Location / / Volume Laterality Blood specimen 01/16/2018 7:25 AM 018 7:31 (specimen) CDT AM CDT Eli Barnhart MD LAB - BLOOD ORDERABLES Performing Organization Address City/State/ZIP Code Phon e Number M [facility] [address] [place], [place] [address] [facility] [address] [place], [place] [address], [facility] [phone] documented in this encounter Visit Diagnoses Diagnosis Nonintractable generalized idiopathic ep ilepsy with status epilepticus (H) - Primary Post-traumatic headache Post-traumatic headache, unspecified Injury, head, sequela Benign essential tremor Essential and other specified forms of t remor documented in this encounter Care Teams Trap Puller Relationship Specialty Start Date End Date [place], [place] Medical PCP - General 09/05/17 [address] [place] [address] Ernestina Shah MD MD Neurology 09/05/17 10/28/18 [facility] [address] [id number] documented as of this encounter
--- OUTSIDE RECORDS SUMMARY | 2022-06-18 08:42 | XMS_ITS | Encounter Summary ---
:1985 Author Organization [place] Address [address] [place] [address] Care Team Providers Name Role Phone [facility] Primary Care Provider [phone] Reason for Visit Reason Onset Date Comments social work referral 10/27/2021 Encounter Details Date Type Department Care Team Description 10/27/2021 Telephone UR CASE MANAGEMENT Jennifer social work referral [phone] Mei Sanchez [facility] Social History Tobacco Use Types Packs/Day Years Used Date Never Smoker Alcohol Use Standard Drinks/Week Comments Yes 0 (1 standard drink = 0.6 oz pure alcoho l) occ Sex Assigned at Date Recorded Not on file COVID-19 Exposure Response Date Recorded In the last month, have you been in contact with No / Unsure 10/26/2021 1:52 PM DINING ROOM CASHIER someone who was confirmed or suspected to have Coronavirus / COVID-19? documented as of this encounter Miscellaneous Notes Telephone Encounter - Mei Rodriguez LICSW - 10/27/2021 3:33 PM DINING ROOM CASHIER Received return phone call from patient. Her Amrit joined the conversation via speaker phone. Trinity expresses desire to talk through things today in anticipation of this being an emotional experience and that it will be difficult to think clearly and make decisions once in our care. Social work provided supportive counseling related to their complicated and impending loss. Our conversation was extended and included: * Social work shared detailed information about the options for disposition including hospitalarranged burial and private arrangements with a licensed home. Trinity and Amrit are now are taking time to think through their wishes. They are leaning toward cremation and have already madeone call to the [employer] [place] to learn about their fees. The family does express some concern about finances so I did share information about [facility]. * Family knows this baby is a boy and they have chosen the name ???Avtar?? * Lilia have a 2.5 year-old daughter named Denita. They have some interest in having her come to the hospital for a visit to meet Avtar after delivery. This potential visit request has beenescalated to [facility] enterprise project manager, Ce Gonzáles with request for compassionate exception to the visiting policy. SW informed Trinity and Amrit that Denita???s visit is not yet approved - they express understanding about this. * A referral has been made to Child Family Life Therapist for support and resources for young siblings at home. A CFL therapist will meet with family during their admission. * Family is interested in photos with [facility] [employer] [facility] [employer] [facility]. I have made an initial referral Cleo Villagomez- the early childhood education coordinator ([phone]). Nursing staff to please contact [facility] again when family is ready for photos. * Trinity and Amrit shared they are not muslim but thought a programmer visit for spiritual support and potential ritual would be very helpful and comforting. They asked that a programmer please come see them. The on-call socia work team has been notified of this family's planned induction of labor and will follow-up. The on-call social science manager can be reached via pager [phone]. NG ROOM CASHIER documented in this encounter Plan of Treatment Not on filedocumented as of this encounter Visit Diagnoses Not on filedocumented in this encounter Care Teams Obstetrical Tech Relationship Specialty Start Date End Date [facility] Medical PCP - General 09/05/17 [address] [place] [address] documented as of this encounter
--- OUTSIDE RECORDS SUMMARY | 2022-06-18 08:42 | XMS_ITS | Encounter Summary ---
:1985 Author Organization [place] Address [address] [place] [address]. [place] [address] Care Team Providers Name Role Phone [facility] Primary Care Provider [phone] Reason for Visit Auth/Cert - Closed Specialty Diagnoses / Procedures Referred By Contact Refer red To Contact Surgery Diagnoses Chronic Tonsilitis Rh Periop Services Procedures TONSILLECTOMY [address] [place], [place] [address] Fax: Referral ID Status Reason Start Date Expiration Date Visits Requ ested Visits Authorized [id number] Closed 1 1 Encounter Details Date Type Department Care Team Description 02/18/2013 Anesthesia Event [facility] Ronald Gonzáles MD [facility] [address] [place], [place] [address] [facility] Jaylene Donaldson APRN [facility] [address] [place], [place] [id number] [address] [place] [address] Anesthesia Record Procedure Summary Procedure Name Responsible Anesthesia Start Anesthesia Stop Anesthesiologist Time Time Tonsillectomy Ronald Gonzáles MD 02/18/13 1253 02/18/13 1338 (Bilateral Throat) Events Date Time Event Comment 02/18/2013 1253 1253 An Start 1257 An Start Data 1258 An Induction 1303 An Intubation 1328 an stop data 1329 An Start Data 1334 an stop data 1338 An Stop Electronically s igned by JAYLENE ELIZABETH on February 18, 2013 1:38 PM Name Total midazolam 1 mg/mL 2 mg fentaNYL 50 mcg/mL 150 mcg lidocaine 1% 50 mg propofol 10 mg/mL 200 mg rocuronium 10 mg/mL 30 mg glycopyrrolate 0.2 mg/mL 0.6 mg neostigmine 1mg/mL 2 mg dexamethasone 4 mg/mL 8 mg ondansetron 2 mg/mL 4 mg LR 1,250 mL Agents Name O2 N2O Exp Sevoflurane Blood No blood administrations on file. Lines, Drains, and Airways Type Details Placement Removal Incision/Surgical Site 02/18/13; Throat; 02/18/13 0000 by 0926 by 10/28/21; 0926 Zahra Sun RN [place], C hristine L, RN Peripheral IV 18 G; Left, Medial; 02/18/13 1142 by 02/18/13 16 33 by Hand; Metacarpal vein Eduardo Lange ra, RN (top of hand); Chlorhexidine; Injectable; Tolerated well RETIRED ETT Airway Size: 7; Cuffed; 02/18/13 1307 by 3 1330 by Oral endotracheal tube, Jaylene Elizabeth RAE; Blade Type: AURELIO Rodgers; Blade Size: 2; Place by: SB; Insertion Attempts: 1; Breath Sounds: Equal, clear and bilateral; End Tidal CO2: Present; Dentition: Intact; Grade View of Cords: 1 documented in this encounter Social History Tobacco Use Types Packs/Day Years Used Date Never Smoker Alcohol Use Standard Drinks/Week Comments Yes 0 (1 standard drink = 0.6 oz pure alcoho l) occ Sex Assigned at Date Recorded Not on file documented as of this encounter OR Notes Anesthesia Postprocedure Evaluation - Ronald Gonzáles MD - 02/18/2013 2:42 PM CDT Anesthesia Post-Evaluation Note Patient: Trinity Ramirez Procedure(s) Performed: Procedure(s) with comments: TONSILLECTOMY - Tonsillectomy Patient location: PACU Anesthesia type: General Patient Condition Respiratory Function (RR / SpO2 / Airway Patency): Satisfactory Cardiac Function (HR / Rhythm / BP): Satisfactory Mental Status: Satisfactory Temperature: Satisfactory Pain Control: Satisfactory PONV: None or treated Hydration Status: Satisfactory Beta-Annalise Therapy: None indicated, given if indicated Blood pressure 103/63, temperature 98.6 ??F (37 ??C), temperature source Temporal, resp. rate 12, height 1.651 m (5' 5), weight 90.266 kg (199 lb), last menstrual period 01/29/2013, SpO2 94.00%, not currently . B/P: 103/63, T: 98.6, P: Data Unavailable, R: 12 Ronald Gonzáles MD Anesthesia Preprocedure Evaluation - Ronald Gonzáles MD - 02/18/2013 11:40 AM CDT Anesthesia Evaluation . Pt has had prior anesthetic. Type: General ROS/MED HX Pulmonary: - neg pulmonary ROS Neurologic: - neg neurologic ROS Cardiovascular: - neg cardiovascular ROS METS/Exercise Tolerance: Hematologic: - neg hematologic ROS Musculoskeletal: - neg musculoskeletal ROS GI/Hepatic: - neg GI/hepatic ROS Renal: - neg renal ROS Endo: - neg endo ROS Psychiatric: - neg psychiatric ROS Infectious Disease: - neg infectious disease ROS Other: - neg other ROS (+) No chance of C-spine cleared: N/A, no H/O Chronic Pain, no other significant disability Physical Exam Normal systems: cardiovascular, pulmonary and dental Airway Mallampati: II TM distance: >3 FB Neck ROM: full Dental Cardiovascular Pulmonary Anesthesia Plan ASA Score 1 . Plan for General and ETT with Intravenous induction. Maintenance will be Balanced. Routine analgesia and antiemetics to be used for post- operative care. Anesthetic plan, risks, benefits and alternatives discussed with: patient or community engagement representative. History & Physical Review History and physical reviewed; no interval change. . documented in this encounter Miscellaneous Notes Anesthesia Care Transfer Note - Jaylene Elizabeth APRN CRNA - 02/18/2013 1:37 PM CDT Anesthesia Care Transfer Note Patient: Trinity Ramirez Transferred to: PACU Patient vital signs: stable Airway: none Spontaneous respsirations. O2 per mask. documented in this encounter Plan of Treatment Not on filedocumented as of this encounter Visit Diagnoses Not on filedocumented in this encounter Administered Medications Inactive Administered Medications - up to 3 most recent administrations Medication Order MAR Action Action Date Dose Rate Site dexamethasone (DECADRON) injection Given 02/18/2013 1:03 PM CDT 8 mg PRN, Administer over 1-4 Minutes, Starting on Sat02/18/13 at 1303, Anesthesia Intra-op fentaNYL (SUBLIMAZE) injection Given 02/18/2013 1:03 PM CDT 150 mcg PRN, moderate to severe pain, Starting on Sat02/18/13 at 1303, Anesthesia Intra-op glycopyrrolate (ROBINUL) injection Given 02/18/2013 1:24 PM CDT 0.2 mg PRN, Starting on Sat02/18/13 at 1303, Anesthesia Intra-op Given 02/18/2013 1:21 PM CDT 0.2 mg Given 02/18/2013 1:03 PM CDT 0.2 mg lactated ringers infusion New Bag 02/18/2013 1:07 PM CDT mL Intravenous, CONTINUOUS PRN, Anesthesia Intra-op, Starting on Sat02/18/13 at 1223, Until Sat02/18/13 at 1338 New Bag 02/18/2013 12:23 PM CDT mL lidocaine 1 % injection Given 02/18/2013 1:03 PM CDT 50 mg PRN, Starting on Sat02/18/13 at 1303, Anesthesia Intra-op midazolam (VERSED) injection Given 02/18/2013 12:53 PM CDT 2 mg PRN, anxiety, Starting on Sat02/18/13 at 1253, Anesthesia Intra-op neostigmine (PROSTIGMINE) injection Given 02/18/2013 1:24 PM CDT 1 mg Intravenous, PRN, Starting on Sat02/18/13 at 1321, Anesthesia Intra-op Given 02/18/2013 1:21 PM CDT 1 mg ondansetron (ZOFRAN) injection Given 02/18/2013 1:15 PM CDT 4 mg PRN, nausea, vomiting, Administer over 2-5 Minutes, Starting on Sat02/18/13 at 1315, Anesthesia Intra-op propofol (DIPRIVAN) injection Given 02/18/2013 1:03 PM CDT 200 mg PRN, Starting on Sat02/18/13 at 1303, Anesthesia Intra-op rocuronium (ZEMURON) injection Given 02/18/2013 1:03 PM CDT 30 mg PRN, Starting on Sat02/18/13 at 1303, Anesthesia Intra-op documented in this encounter Care Teams Construction Equipment Overhauler Relationship Specialty Start Date End Date [facility] PCP - General 02/04/13 06/15/13 documented as of this encounter
--- OUTSIDE RECORDS SUMMARY | 2022-06-18 08:42 | XMS_ITS | Encounter Summary ---
:1985 Author Organization [address] [place] [address] Care Team Providers Name Role Phone [facility] Primary Care Provider [phone] Ernestina Shah MD Unavailable Encounter Details Date Type Department Care Team Description 07/23/2018 Medical Correspondence [facility] PROVID[facility] Health Info Mgmt Non-Provider SERVICE REQ UEST [address] [address] Social History Tobacco Use Types Packs/Day Years Used Date Never Smoker Alcohol Use Standard Drinks/Week Comments Yes 0 (1 standard drink = 0.6 oz pure alcoho l) occ Sex Assigned at Date Recorded Not on file documented as of this encounter Plan of Treatment Not on filedocumented as of this encounter Visit Diagnoses Not on filedocumented in this encounter Care Teams Java Front End Web Developer Relationship Specialty Start Date End Date [facility] PCP - General 09/05/17 [address] [place], [place] [id number] Ernestina Shah MD MD Neurology 09/05/17 10/28/18 [facility] [address] [facility] [address] [place] [address] documented as of this encounter
--- OUTSIDE RECORDS SUMMARY | 2022-06-18 08:42 | XMS_ITS | Encounter Summary ---
:1985 Author Organization [place] Address [address] [place] [address] Care Team Providers Name Role Phone Unavailable Primary Care Provider Unavailable Encounter Details Date Type Department Care Team Description 11/10/2007 Historic Results INTERFACED REPORT Tobi Kirkpatrick [address] [place] [address] Social History Tobacco Use Types Packs/Day Years Used Date Never Assessed Sex Assigned at Date Recorded Not on file documented as of this encounter Plan of Treatment Not on filedocumented as of this encounter Procedures Procedure Name Priority Date/Time Associated Comments Diagnosis LAMOTRIGINE LEVEL STAT 11/10/2007 2:42 PM Resu lts for this [employer]CH[employer]ISE DISTRIBUT[employer] procedure are i n the results section. BASIC METABOLIC PANEL STAT 11/10/2007 2:42 PM Results for this [employer]ISE [employer]RI[employer] procedure are i n the results section. HCG QUALITATIVE URINE STAT 11/10/2007 2:30 PM Results for this [employer]ISE DISTRI[employer] procedure are i n the results section. documented in this encounter Results Basic metabolic panel (11/10/2007 2:42 PM MERCHANDISE DISTRIBUTOR) P athologist Signature Sodium 139 133 - 144 MISYS mmol/L Potassium 4.4 3.4 - 5.3 MISYS mmol/L Chloride 106 94 - 109 MISYS mmol/L Carbon Dioxide 24 20 - 32 MISYS mmol/L Glucose 84 60 - 99 MISYS mg/dL Urea Nitrogen 11 5 - 24 MISYS mg/dL Creatinine 0.96 0.60 - MISYS 1.30 mg/dL GFR Estimate 79 >60 MISYS mL/min/1.7 m2 GFR Estimate If >90 >60 MISYS Black mL/min/1.7 m2 Calcium 9.1 8.5 - 10.4 MISYS mg/dL Anion Gap 9 6 - 17 MISYS mmol/L Specimen Anatomical Collection Method Collection Time Receive d Time (Source) Location / / Volume Laterality 11/10/2007 2:42 PM 8 2:23 MERCHANDISE DISTRI[employer] PM [employer]ISE [employer] Antonio Kirkpatrick LAB - BLOOD ORDERABLES Performing Organization Address [facility] Phon e Number MISYS Lamotrigine level (11/10/2007 2:42 PM MERCHANDISE DISTRIBUTOR) athologist Signature Lamotrigine 2.8 MISYS Level Comment: Reference range: 2.0 ??to ??20.0 Unit: ug/ml (Note) CURRENT CLINICAL INFORMATION SUGGESTS TH E RECOMMENDED CONCENTRATIONS FOR LAMOTRIGINE DURING CH RONIC THERAPY ARE 2 - 20 ug/ml. LAMOTRIGINE ANALYSIS PERFORMED BY HIGH P ERFORMANCE LIQUID CHROMATOGRAPHY (HPLC). Analysis performed by [employer] [place] [address] Specimen Anatomical Collection Method Collection Time Receive d Time (Source) Location / / Volume Laterality 11/10/2007 2:42 PM 8 2:23 MERCHANDISE DISTRIBUTOR PM MERCHANDISE DISTRIBUTOR Antonio Kirkpatrick LAB - BLOOD ORDERABLES Performing Organization Address [facility] Phon e Number MISYS HCG qualitative urine (11/10/2007 2:30 PM MERCHANDISE DISTRIBUTOR) athologist Signature HCG Qual Urine Negative NEG MISYS Specimen Anatomical Collection Method Collection Time Receive d Time (Source) Location / / Volume Laterality 11/10/2007 2:30 PM 8 2:23 MERCHANDISE DISTRIBUTOR PM MERCHANDISE DISTRIBUTOR Antonio Kirkpatrick LAB - URINE ORDERABLES Performing Organization Address City/[facility]/ZIP [facility] Phon e Number MISYS documented in this encounter Visit Diagnoses Not on filedocumented in this encounter
--- OUTSIDE RECORDS SUMMARY | 2022-06-18 08:42 | XMS_ITS | Encounter Summary ---
:1985 Author Organization [place] Address [address] [place] [address]. [place] [address] Care Team Providers Name Role Phone [facility] Primary Care Provider Reason for Visit Auth/Cert - Closed Specialty Diagnoses / Procedures Referred By Contact Refer red To Contact Surgery Diagnoses Chronic Tonsilitis Rh Periop Services Procedures TONSILLECTOMY [address] [place], [place] [address] Fax: Referral ID Status Reason Start Date Expiration Date Visits Requ ested Visits Authorized [id number] Closed 1 1 Encounter Details Date Type Department Care Team Description 02/18/2013 Surgery [facility] Jacinta Loya MD Tonsillectomy PeriOp Services [facility] [address] [facility] [address] [place] [address] [place], [place] [address] (Wo rk) Surgery Details Date/Time Status Location OR Service Patient Case Case Traum a Class Class Type Case? 02/18/13 12:45 Posted [facility] OR OR 06 Otolaryngology Same Day PM Surgery Panel 1 Procedure LRB Anes Op Region Wound Class Commen ts Tonsillectomy Bilateral General Throat II-Clean Contaminated Tonsillectomy Surgeon Surgeon Role Service Panel Tomasz Loya MD Primary Otolaryngology 1 Special Needs 5' 199 lb - per H&P. documented in this encounter Social History Tobacco Use Types Packs/Day Years Used Date Never Smoker Alcohol Use Standard Drinks/Week Comments Yes 0 (1 standard drink = 0.6 oz pure alcoho l) occ Sex Assigned at Date Recorded Not on file documented as of this encounter Last Filed Vital Signs Vital Sign Reading Time Taken Comments Blood Pressure 123/81 02/18/2013 10:13 AM CDT Pulse - - Temperature - - Respiratory Rate 18 02/18/2013 10:13 AM CDT Oxygen Saturation 98% 02/18/2013 10:13 AM CDT Inhaled Oxygen Concentration - - Weight 90.3 kg (199 lb) 02/18/2013 10:08 AM CDT Height 165.1 cm (5' 5) 02/18/2013 10:08 AM CDT Body Mass Index 33.12 02/18/2013 10:08 AM CDT documented in this encounter Discharge Instructions Discharge InstructionsSaniya Lange RN - 02/18/2013 3:22 PM CDT TOOK ORAL PAIN MEDICINE, 5 ML AT 2:10 PM TONSILLECTOMY DISCHARGE INSTRUCTIONS [facility], PCarla Guzman M.D. Phill Kahn M.D. Jeff [facility] [...] It is best to stay in the [facility] area for the two week healing [...] have any problems or questions, please call [phone], 24 hours a day. GENERAL ANESTHESIA OR [...] Component Value Ref Test Analysis Performed At [facility] MysteryD Range Method Time Signature Copath Report Patient Name: TRINITY AYALA MR#: [id number] Specimen #: [id number] Collected: 02/18/2013 Received: 02/18/2013 Reported: 02/19/2013 16:17 [...] serial sections, no gross lesions are identified. ??Ham Trimmer section is submitted in one cassette. B. ??The specimen, labeled left tonsil, consists of formal in-fixed morin to pink to hemorrhagic soft palatine tonsil measuring 2.5 cm x 1.5 cm x 1 cm. ??On serial sections, no gross lesions are identified. Ham Trimmer section is submitted in one cassette. ??MGP/s g MICROSCOPIC: A. and B. ??Microscopic examination is performed. SA/andreea DT/02-19-13 TESTING LAB LOCATION: [address] ??[address] COLLECTION SITE: Client: [facility] Location: RHOR (R) Specimen Anatomical Collection Method Collection Time Receive d Time (Source) Location / / Volume Laterality 02/18/2013 1:15 PM 3 1:45 CDT PM CDT Tomasz Loya MD LAB - BEAKER AP Performing Organization Address City/State/ZIP Code Phon e Number [place] HCG qualitative urine (02/18/2013 10:10 AM CDT) P athologist Signature HCG Qual Urine Negative NEG [facility] LAB Specimen Anatomical Collection Method Collection Time Receive d Time (Source) Location / / Volume Laterality Urine specimen URINE SPECIMEN / 02/18/2013 10:10 02/18 (specimen) Unknown AM CDT 10:23 AM CDT Allan Garrett MD LAB - URINE ORDERABLES Performing Organization Address City/State/ZIP Code Phon e Number [place] [address] [address], [place] [address] [facility] documented in this encounter Visit Diagnoses Not [...] Starting on Sat02/18/13 at 1410, PACU/Phase II sterile water (bottle) Given 02/18/2013 1:23 PM 1,000 mLs Operative irrigation CDT Site/Surgical S ite PRN, Intra-procedure, Starting on Sat02/18/13 at 1323, Until Sat02/18/13 at 1845 documented in this encounter Active and Recently [...] Intra-procedure documented in this encounter Care Teams Manufacturing Technology Analyst Relationship Specialty Start Date End Date [facility] PCP - General 02/04/13 06/15/13 documented as of this encounter
--- OUTSIDE RECORDS SUMMARY | 2022-06-18 08:42 | XMS_ITS | Encounter Summary ---
:1985 Author Organization [place] Address [address] [place] [address]. [place] [address] Care Team Providers Name Role Phone [facility] Primary Care Provider [phone] Ernestina Shah MD Unavailable Reason for Visit Reason Onset Date Comments Call To Schedule Appointment 09/01/2018 Encounter Details Date Type Department Care Team Description 09/01/2018 Telephone [facility] Louise Johnson Call T o Schedule Maternal Medicine Appo intment [place] [address] Social History Tobacco Use Types Packs/Day Years Used Date Never Smoker Alcohol Use Standard Drinks/Week Comments Yes 0 (1 standard drink = 0.6 oz pure alcoho l) occ Sex Assigned at Date Recorded Not on file documented as of this encounter Miscellaneous Notes Telephone Encounter - Louise Johnson - 09/01/2018 11:42 AM CST [facility] received a referral for patient and [facility] wanted to see her for a FTS appointment. Patient is now past FTS dates and has not returned [facility] calls. Orders for FTS removed. Will continue to try to schedule future appts. Louise Li Receiving And Processing Supervisor, JEREMY E TRIMMER documented in this encounter Plan of Treatment Not on filedocumented as of this encounter Visit Diagnoses Not on filedocumented in this encounter Care Teams Loan Officer Relationship Specialty Start Date End Date [facility] PCP - General 09/05/17 [address] [place] [address] Ernestina Shah MD MD Neurology 09/05/17 10/28/18 [facility] OF NEUROLOGY [facility] [place] [address] [phone] documented as of this encounter
--- OUTSIDE RECORDS SUMMARY | 2022-06-18 08:42 | XMS_ITS | Encounter Summary ---
:1985 Author Organization [place] Address [address] [place] [address]. [place] [address] Care Team Providers Name Role Phone [facility] Primary Care Provider [phone] Encounter Details Date Type Department Care Team Description 10/24/2021 Medical Correspondence [facility] Scan, OBGYN REFERRAL Health Info [facility] Non-Provider [facility] [address] [place] [address] Social History Tobacco Use Types Packs/Day Years Used Date Never Smoker Alcohol Use Standard Drinks/Week Comments Yes 0 (1 standard drink = 0.6 oz pure alcoho l) occ Sex Assigned at Date Recorded Not on file documented as of this encounter Plan of Treatment Not on filedocumented as of this encounter Visit Diagnoses Not on filedocumented in this encounter Care Teams Personnel Placement Specialist Relationship Specialty Start Date End Date [facility] PCP - General 09/05/17 [address] [place] [address] documented as of this encounter
--- OUTSIDE RECORDS SUMMARY | 2022-06-18 08:42 | XMS_ITS | Encounter Summary ---
:1985 Author Organization [place] Address [address] [place] [address]. [place] [address] Care Team Providers Name Role Phone [facility] Primary Care Provider [phone] Gia Martínez MD Unavailable [phone] Reason for Visit Reason Comments Induction Of Labor trisomy 18 Auth/Cert Specialty Diagnoses / Procedures Referred By Contact Refer red To Contact project management professional Diagnoses Encounter for induction of labor Maternity elizabeth: 03/07/22 IOL Encounter for induction of labor Ur 4cob [address] [facility] [phone] Phone: Referral ID Status Reason Start Date Expiration Date Visits Requ ested Visits Authorized [id number] 1 1 Encounter Details Date Type Department Care Team Description 10/28/2021 - Hospital Encounter [facility] Sa rima Martínez MD [address] [place], [place] [id number] 10/29/2021 [facility] Birthplace Marnie Tafoya MD [address] [place], [place] [id number] [address] [place] [phone] Social History Tobacco Use Types Packs/Day Years Used Date Never Smoker Smokeless Tobacco: Never Used Alcohol Use Standard Drinks/Week Comments Not Currently 0 (1 standard drink = 0.6 oz pure alcoho l) occ Sex Assigned at Date Recorded Not on file COVID-19 Exposure Response Date Recorded In the last month, have you been in contact with No / Unsure 10/28/2021 8:34 AM MANAGER EMS someone who was confirmed or suspected to have Coronavirus / COVID-19? documented as of this encounter Last Filed Vital Signs Vital Sign Reading Time Taken Comments Blood Pressure 107/66 10/29/2021 11:27 AM MANAGER EMS Pulse - - Temperature 37 ??C (98.6 ??F) 10/29/2021 6:23 AM MANAGER EMS Respiratory Rate 99 10/29/2021 8:38 AM MANAGER EMS Oxygen Saturation 100% 10/29/2021 12:01 PM MANAGER EMS Inhaled Oxygen Concentration - - Weight 79.4 kg (175 lb) 10/28/2021 9:00 AM MANAGER EMS Height 165.1 cm (5' 5) 10/28/2021 9:00 AM MANAGER EMS Body Mass Index 29.12 10/28/2021 9:00 AM MANAGER EMS documented in this encounter Discharge Summaries Lin Lemon MD - 10/29/2021 12:10 PM CST [facility] Discharge Summary Trinity Lozano Age: [age] year old Date of : 1985 Date of Admission: 10/28/2021 Date of Discharge:: 10/30/2021 Admitting Physician: Gia Viveros MD Discharge Physician: Marnie Tafoya MD Admission Diagnoses: - IUP at 21w3d - 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 acetaminophen (TYLENOL) 325 MG tablet Take 325 mg by mouth every 6 hours as needed for mild painor headaches 10/27/2021 at Unknown time ??? ACETAZOLAMIDE PO Take 500 mg by mouth 2 times daily. Indications: Seizure 10/28/2021 at Unknown time ??? calcium carbonate (TUMS) 500 MG chewable tablet Take 2 chew tab by mouth 2 times daily Past Weekat Unknown time ??? folic acid (FOLVITE) 1 MG tablet Take 1 mg by mouth daily 10/28/2021 at Unknown time ??? lamoTRIgine (LAMICTAL) 200 MG tablet Take 400 mg by mouth 2 times daily 10/28/2021 at Unknown time ??? LEVETIRACETAM PO TABS Take 1,000 mg by mouth 2 times daily. 10/28/2021 at Unknown time ??? magnesium oxide (MAG-OX) 400 MG tablet Take 400 mg by mouth daily Past Week at Unknown time ??? Vit-Fe Fumarate-FA ( MULTIVITAMIN W/IRON) 27-0.8 MG tablet Take 1 tablet by mouth daily 10/28/2021 at Unknown time ??? ranitidine (ZANTAC) 150 MG capsule Take 150 mg by mouth 2 times daily Past Week at Unknown time Discharge Medications: Review of your medicines CONTINUE these medicines which have NOT CHANGED Dose / Directions acetaminophen 325 MG tablet Commonly known as: TYLENOL Indication: Pain Dose: 325 mg Take 325 mg by mouth every 6 hours as needed for mild pain or headaches Refills: 0 ACETAZOLAMIDE PO Indication: Seizure Dose: 500 mg Take 500 mg by mouth 2 times daily. Indications: Seizure Refills: 0 calcium carbonate 500 MG chewable tablet Commonly known as: TUMS Indication: Heartburn Dose: 2 chew tab Take 2 chew tab by mouth 2 times daily Refills: 0 folic acid 1 MG tablet Commonly known as: FOLVITE Indication: epilepsy Dose: 1 mg Take 1 mg by mouth daily Refills: 0 LaMICtal 200 MG tablet Generic drug: lamoTRIgine Dose: 400 mg Take 400 mg by mouth 2 times daily Refills: 0 LEVETIRACETAM PO TABS Dose: 1,000 mg Take 1,000 mg by mouth 2 times daily. Refills: 0 magnesium oxide 400 MG tablet Commonly known as: MAG-OX Indication: headache Dose: 400 mg Take 400 mg by mouth daily Refills: 0 multivitamin w/iron 27-0.8 MG tablet Indication: Dose: 1 tablet Take 1 tablet by mouth daily Refills: 0 ranitidine 150 MG capsule Commonly known as: ZANTAC Indication: Heartburn Dose: 150 mg Take 150 mg by mouth 2 times daily Refills: 0 Consultations: Anesthesia Soils Engineer Social work Brief Admission History Ms. Trinity Lozano is a 36 year old , at 21w3d by 7w6d US who presents for induction termination in setting of multiple anomalies on US consistent with likely trisomy 18. Anomalies include choroid plexus cyst, bilateral radial ray malformation, complex congenital heart disease, 2 vessel cordf, hypotelorism, and growth restriction. otherwise complicated by epilepsy, h/o 4th degree ?? Brief Intrapartum Course: Stage 1: Trinity Lozano is a 36 year old who presented on 10/28/2021 at 21w3d for termination induction for multiple anomalies concerning for Trisomy 18. She completed a Women's Right To Knowconsent on 10/26/21 at 1535 with va. She received mifepristone 200mg PO and misoprostol 400mcg vaginally x2 doses. She received IV diluadid, IV fentanyl and an epidural for pain control. [facility] 103[facility] which persisted for 6 hours. No tachycardia, no other symptoms of infection, WBC 9.6. She was empirically treated for triple I with ampicillin and gentamicin. Her fever did resolve. Decision made to not use any more misoprostol in case that was contributing to her fever. She was augmented with pitocin. No cervical change after 4 hours so velez bulb placed with 70mL of sterile water. SROM at 0602 clear fluid and velez bulb expelled. On sterile cervical exam on 10/29/2021 at 0730 thefetus was noted to be in the vagina. ?? Stage 2: Pushed 3 times to deliver demised infant en caul on October 29, 2021 at 0747 from cephalic position.Cord was clamped and cut. weight pending. Apgars 0 and 0. ?? Stage 3: Cord avulsed with gentle traction while doing an exam to see where placenta was. Placenta was [facility] through cervix at this time so it was grasped between my fingers and came out easily with gentle traction. Minimal bleeding. Placenta appears intact but small, 2vc. Bedside transabdominal ultrasound performed with oncoming physician Dr. Tafoya present as well to confirm no retained products of conception. Endometrial stripe appeared thin and even. Minimal bleeding. EBL 100mL. Trinity in stable condition. Amrit holding baby. Hospital Course: The patient's hospital course was unremarkable. On discharge, her pain was well controlled. Vaginal bleeding is similar to peak menstrual flow. Voiding without difficulty. Ambulating well and tolerating a normal diet. No fever. She was discharged on post- day #0. Contraception: Did not discuss Rh positive, Rhogam not indicated Rubella immune, MMR not indicated Discharge Instructions and Follow-Up: Discharge diet: Regular Discharge activity: Pelvic rest for 6 weeks including no sexual intercourse, tampons, or douching. Discharge follow-up: Follow up with your primary OB for a routine visit in 6 weeks Discharge Disposition: Discharged to home in stable condition Lin Lemon MD PGY3 Obstetrics & Gynecology 10/29/21 [facility] Associated attestation - Marnie Tafoya MD - 10/29/2021 3:28 PM MANAGER EMS Physician Attestation IMarnie, saw and evaluated this patient prior to discharge. I discussed the patient with the resident/fellow and agree with plan of care as documented in the note. I personally reviewed vital signs, medications, and imaging. I personally spent 10 minutes on discharge activities. Marnie Tafoya MD Date of Service (when I saw the patient): 10/29/21 documented in this encounter Discharge Instructions Discharge InstructionsThHaley johnson RN - 10/29/2021 2:07 PM CST Gia Martínez MD [facility] SENIOR PRINCIPAL ARCHITECT Professional Building [address] [place] [id number] [facility] AttachmentsThe following attachments cannot be sent through Care Everywhere. Taking Care of Yourself after Delivery: For Women Who Have Had a Loss or (Armenian)documented in this encounter Medications at Time of Discharge Medication Sig Dispensed Refills Start Date End Date acetaminophen (TYLENOL) Take 325 mg by mouth 0 325 MG tabletIndications: every 6 hours as Pain needed for mild pain or headaches ACETAZOLAMIDE Take 500 mg by mouth 0 POIndications: Seizure 2 times daily. Indications: Seizure calcium carbonate (TUMS) Take 2 chew tab by 0 500 MG chewable mouth 2 times daily tabletIndications: Heartburn folic acid (FOLVITE) 1 MG Take 1 mg by mouth 0 tabletIndications: daily epilepsy lamoTRIgine (LAMICTAL) 200 Take 400 mg by mouth 0 MG tablet 2 times daily LEVETIRACETAM PO TABS Take 1,000 mg by 0 mouth 2 times daily. magnesium oxide (MAG-OX) Take 400 mg by mouth 0 400 MG tabletIndications: daily headache Vit-Fe Take 1 tablet by 0 Fumarate-FA ( mouth daily MULTIVITAMIN W/IRON) 27-0.8 MG tabletIndications: ranitidine (ZANTAC) 150 MG Take 150 mg by mouth 0 capsuleIndications: 2 times daily Heartburn documented as of this encounter Progress Notes Lin Lemon MD - 10/29/2021 1:57 PM CST Survey Ms. Trinity Lozano is a 36 year old , who presented at 21w3d for IOL termination for suspected Trisomy 18. Multiple anomalies on level 2 US consisted with T18: choroid plexus cyst, bilateral radial ray malformation, complex congenital heart disease, 2 vessel cord, hypotelorism, and growth restriction. She had NIPS consistent with T18 however did not have confirmatory testing. She was induced with Mifepristone, misoprostol, and pitocin. She delivered a stillborn male infant, weighing 278g, length 22.9cm at 0747 AM. Amniotic fluid was clear. External examination reveals a well-developed male infant. The features of the were with syndromic appearance. A mouth and anus were patent without cleft lip or palette. The infant has two eyes with orbits that were shut, a small anteverted nose with patent nares, an intact lip and palate, and a receeded chin. The headis grossly unremarkable with normally low set ears that were incompletely formed, and no nuchal thickening. The thorax is grossly unremarkable, has two nipple buds, and the sternum ends approximately half the distance from nipple line to umbilicus. The vertebral column is intact, and there are 4 digits on left hand, 5 digits on right hand, both were clenched with shortened forearms. The anus is patent and there are no abnormal joint contractures. There is an attached pink-white two vessel cord that appears normal in caliber and length. Head circumference was 17.1 cm, foot length 1.5 cm, femur length ~4 cm, and humerus length ~4 cm. Maternal screening labs, chromosome studies, autopsy declined. Lin Lemon MD PGY3 Obstetrics & Gynecology 10/29/21 [facility] Cornelio Strickland - 10/29/2021 10:51 AM CST [facility] Unit: Labor and Delivery Referral Source: ELIZABETH page Illness Narrative: Trinity had an induced labor, son Avtar was born but did not survive long outsidethe womb. Distress: Grief at the loss of their child. Coping: Parents of Avtar requested a [place], Naming and Commendation service for their son Avtar.. Plan: On-call visit, mom will be discharging soon. No plan to follow. Cornelio Strickland Shear Operator Automatic Pager number: [phone] * [facility] remains available 29/04 for emergent requests/referrals, either by having the switchboard page the on-call snowsport instructor or by entering an ELIZABETH/STAT consult in [facility] (this will also page the on-call snowsport instructor).* [facility] iBanka Hutson, SOHEILA - 10/29/2021 8:[address] Martínez and Dr. Tafoya using ultra sound to double check that the placenta is completely detached from the uterus. It appears to had a Smoothe lining and no evidence of placental pieces Anastasia Garcia MD - 10/29/2021 1:57 AM CST Went to assess patient. She was able to get some sleep. Recheck temp, afebrile. Cervical exam with velez balloon firmly in place. Currently on 10 mU/min of pitocin, will continue to uptitrate and monitor her closely for progress in labor. Dr Martínez updated. Anastasia Mejia MD Obstetrics & Gynecology PGY-3 1:58 AM 10/29/2021 [facility] Anastasia Mejia MD - 10/28/2021 10:17 PM CST Cervix 2/50/-1, velez placed w/ 70 ccs without difficulty. Patient tolerated intervention well. Continue pitocin per protocol. Comfortable with epidural in place. Dr. Mauricio drew. Anastasia Mejia MD Obstetrics & Gynecology PGY-3 10:18 PM 10/28/2021 [facility] Anastasia Mejia MD - 10/28/2021 8:52 PM CST Went to see patient and discuss fever. She feels overall well, no localizing symptoms of infection. No URI symptoms. Agrees to starting antibiotics out of an abundance of caution given persistent fever. We discussed that it is unlikely from misoprostol due to how high it is. Her other vitals are reassuring, no tachycardia. Amp/gent ord'd. Will get CBC and monitor her closely for progress in labor. Patient seen with Dr. Mauricio Mejia MD Obstetrics & Gynecology PGY-3 8:55 PM 10/28/2021 Gia Andrews MD - 10/28/2021 7:26 PM CST [facility] LABOR & DELIVERY PROGRESS NOTE: October 28, 2021 7:26 PM SUBJECTIVE: Patient feeling more comfortable. No longer shaking. Requests ultrasound to see if fetus still has heartbeat. OBJECTIVE: Vitals: 10/28/21 1833 10/28/21 1835 10/28/21 1838 10/28/21 1849 BP: 92/52 99/52 98/54 Resp: Temp: (!) 103 ??F (39.4 ??C) TempSrc: SpO2: 98% 98% 99% Weight: Height: BSUS: single fetus in vertex presentation, no cardiac motion Gen: alert, oriented, tearful Abdomen: Gravid, nontender Cervix: Deferred LABS: Recent Results (from the past 12 hour(s)) Asymptomatic COVID-19 Virus (Coronavirus) by PCR Nose Collection Time: 10/28/21 10:05 AM Specimen: Nose; Swab Result Value Ref Range SARS CoV2 PCR Negative Negative CBC with platelets Collection Time: 10/28/21 10:23 AM Result Value Ref Range WBC Count 8.4 4.0 - 11.0 10e3/uL RBC Count 3.94 3.80 - 5.20 10e6/uL Hemoglobin 12.0 11.7 - 15.7 g/dL Hematocrit 36.7 35.0 - 47.0 % MCV 93 78 - 100 fL MCH 30.5 26.5 - 33.0 pg MCHC 32.7 31.5 - 36.5 g/dL RDW 12.9 10.0 - 15.0 % Platelet Count 247 150 - 450 10e3/uL Adult Type and Screen Collection Time: 10/28/21 10:23 AM Result Value Ref Range ABO/RH(D) O POS Antibody Screen Negative Negative SPECIMEN EXPIRATION DATE [id number] ASSESSMENT / PLAN: 36 year old at 21w3d admitted for induction termination for fetus with multiple anomalies, concerning for trisomy 18. Patient with h/o seizure disorder. ?? 1. Labor. S/p 1 dose PO mifepristone 200mg x1 and vaginal misoprostol 400mcg x2. Cervix 2/50/-3/soft/mid. Suspect shaking and elevated temp due to misoprostol. Gave tylenol and will monitor closely. Will augment IV pitocin at 1900 instead of another misoprostol. ?? 2. Pain control. Comfortable with epidural. ?? 3. Seizure disorder. Well controlled, no seizures in 3 years. Continue home meds - acetazolamide, keppra, lamictal. ?? 4. anomalies. Patient does not want genetic testing or autopsy. Plan cremation. Discussed counseling and resources with patient. Gia Martínez MD [facility] Gia Martínez MD - 10/28/2021 6:25 PM CST [facility] LABOR & DELIVERY PROGRESS NOTE: October 28, 2021 6:25 PM SUBJECTIVE: Patient comfortable with epidural but complains of feeling cold, shaking. No leaking or bleeding. OBJECTIVE: Vitals: 10/28/21 1750 10/28/21 1757 10/28/21 1805 10/28/21 1810 BP: (!) 148/83 123/70 108/53 Resp: Temp: 100 ??F (37.8 ??C) TempSrc: Oral SpO2: 98% 98% Weight: Height: Gen: shaking, under many blankets Abdomen: Gravid, soft, nontender Cervix: Dilation: 2 Effacement: 50% Station:-3 Consistency: soft Position: Mid LABS: Recent Results (from the past 12 hour(s)) Asymptomatic COVID-19 Virus (Coronavirus) by PCR Nose Collection Time: 10/28/21 10:05 AM Specimen: Nose; Swab Result Value Ref Range SARS CoV2 PCR Negative Negative CBC with platelets Collection Time: 10/28/21 10:23 AM Result Value Ref Range WBC Count 8.4 4.0 - 11.0 10e3/uL RBC Count 3.94 3.80 - 5.20 10e6/uL Hemoglobin 12.0 11.7 - 15.7 g/dL Hematocrit 36.7 35.0 - 47.0 % MCV 93 78 - 100 fL MCH 30.5 26.5 - 33.0 pg MCHC 32.7 31.5 - 36.5 g/dL RDW 12.9 10.0 - 15.0 % Platelet Count 247 150 - 450 10e3/uL Adult Type and Screen Collection Time: 10/28/21 10:23 AM Result Value Ref Range ABO/RH(D) O POS Antibody Screen Negative Negative SPECIMEN EXPIRATION DATE [id number] ASSESSMENT / PLAN: 36 year old at 21w3d admitted for termination induction for multiple anomalies, suspected trisomy 18. Patient with h/o seizure disorder. 1. Labor. S/p 1 dose PO mifepristone 200mg x1 and vaginal misoprostol 400mcg x2. Cervix 2/50/-3/soft/mid. Suspect shaking and elevated temp due to misoprostol. Tabs in vaginal still present. Will give tylenol and try Jessie hugger. Consider transition to IV pitocin at 1900 instead of another misoprostol. 2. Pain control. Comfortable with epidural. 3. Seizure disorder. Well controlled, no seizures in 3 years. Continue home meds - acetazolamide, keppra, lamictal. 4. anomalies. Patient does not want genetic testing or autopsy. Plan cremation. Gia Martínez MD [facility] Madhuri Chaves, CCLS - 10/28/2021 3:48 PM CST 10/28/21 1533 Child Life Location NICU (Labor and delivery) Intervention Family Support;End of Life Care Family Support Comment Pt, Trinity, present with , Amrit. Pt and here for inductionof labor of their son, Avtar, with lethal anomalies. Parents requested support for their 2.5 year old daughter, Denita. 60 mins of supportive listening and end of life support provided as parents process their own grief and discuss plans, hopes, and concerns for their daughter as she processes this loss in her own way. Major Change/Loss/Stressor/Fears of a loved one Outcomes/Follow Up Provided Materials;Continue to Follow/Support This CCLS met with pt and her to provide child life services related to support for their oldest daughter Carolina (age 2.5) in saying goodbye to her baby brother. Per pt and bedside nurse, plan is for their daughter to visit after Avtar has been born and be able to see/hold him for 15 minutes. Maternal and paternal grandmothers are trading taking care of Carolina during Trinity's admission. Pt and asked questions related to age appropriate understanding of , helpful language, and how children might grieve. They also discussed longer term legacy of Avtar always being a part of their family story. Parents very appreciative of services offered, at times tearful while discussing their own grief as well as their concerns for there daughter's grief. Materials provided include: 3 books (How I Feel, Something Happened, We Were Gonna Have a Baby...) matching large/small stuffed animals (Big Sister, Little Brother) and quiet play materials to have at bedside in room for Carolina's scheduledvisit. [facility] Bianka Hutosn RN - 10/28/2021 11:41 AM CST Messsage left for Now I lay Me Down to Sleep that the patient would like pictures of their baby after it its born [facility] documented in this encounter H&P Notes Gia Martínez MD - 10/28/2021 12:33 PM CST [facility] OB History and Physical Trinity Lozano Age: [age] year old Date of : 1985 CC: Induction termination HPI: Ms. Trinity Lozano is a 36 year old at 21w3d by 7w6d US not c/w LMP, who presents for induction termination in setting of suspected trisomy 18, multiple anomalies on ultrasound. Shedenies contractions, vaginal bleeding, and loss of fluid. She is otherwise feeling well today. Does not want an autopsy or genetics. Does want cremation. Partner at bedside, supportive Complications: - epilepsy - h/o fourth degree perineal laceration - multiple anomalies on level 2 US consisted with T18: choroid plexus cyst, bilateral radial ray malformation, complex congenital heart disease, 2 vessel cordf, hypotelorism, and growth restriction Labs: Lab Results Component Value Date Negative 10/28/2021 HGB 12.0 10/28/2021 Ultrasounds 10/26/21 US 1) Eduardo intrauterine at 21w 1d gestational age. 2) The following differences were noted: -Choroid plexus cyst -Bilateral radial ray malformation (shorted radius and ulna, hands flexed and fixed at the wrist) -Complex congenital heart disease (complete AV canal defect, pulmonary branches appear smaller, [...] restriction. 5) The amniotic fluid volume appeared normal. 6) The umbilical artery Doppler waveform appeared normal. The UA Doppler was evaluated due to the finding of growth restriction. OB History OB History Para Term AB Living 2 1 1 0 0 1 SAB IAB Ectopic Multiple Live Births 0 0 0 0 1 # Outcome Date GA Lbr Esequiel/2nd Weight Sex Delivery Anes PTL Lv 2 Current 1 Term 02/25/19 39w4d 3.856 kg (8 lb 8 oz) F Vag-Spont SNADY Comments: 4th degree tear PMHx: Past Medical History: Diagnosis Date ??? Genital herpes ??? Seizures (H) last one was about a year ago PSHx: Past Surgical History: Procedure Laterality Date ??? 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 ? HEAD & NECK SURGERY wisdom teeth removed ??? TONSILLECTOMY 02/18/2013 Procedure: TONSILLECTOMY; Tonsillectomy; Surgeon: Ronald Loya MD; Location: OR Meds: Medications Prior to Admission Medication Sig Dispense Refill Last Dose ??? acetaminophen (TYLENOL) 325 MG tablet Take 325 mg by mouth every 6 hours as needed for mild painor headaches 10/27/2021 at Unknown time ??? ACETAZOLAMIDE PO Take 500 mg by mouth 2 times daily. Indications: Seizure 10/28/2021 at Unknown time ??? calcium carbonate (TUMS) 500 MG chewable tablet Take 2 chew tab by mouth 2 times daily Past Weekat Unknown time ??? folic acid (FOLVITE) 1 MG tablet Take 1 mg by mouth daily 10/28/2021 at Unknown time ??? lamoTRIgine (LAMICTAL) 200 MG tablet Take 200 mg by mouth 2 times daily. 10/28/2021 at Unknown time ??? LEVETIRACETAM PO TABS Take 1,000 mg by mouth 2 times daily. 10/28/2021 at Unknown time ??? magnesium oxide (MAG-OX) 400 MG tablet Take 400 mg by mouth daily Past Week at Unknown time ??? Vit-Fe Fumarate-FA ( MULTIVITAMIN W/IRON) 27-0.8 MG tablet Take 1 tablet by mouth daily 10/28/2021 at Unknown time ??? ranitidine (ZANTAC) 150 MG capsule Take 150 mg by mouth 2 times daily Past Week at Unknown time Allergies: No Known Allergies SocHx: She denies any tobacco, alcohol, or other drug use during this . ROS: Complete 10-point ROS negative except as noted in HPI. She denies blurry vision, chest pain, shortness of breath, RUQ pain, nausea, vomiting, dysuria, hematuria or extremity edema. PE: Vit: No data found. Gen: Well-appearing, NAD, comfortable CV: Regular rate Pulm: Nonlabored breathing on room air Abd: Soft, gravid, non-tender Ext: no LE edema b/l Assessment and Plan: Ms. Trinity Lozano is a 36 year old , at 21w3d by 7w6d US who presents for induction termination in setting of multiple anomalies on US consistent with likely trisomy 18. Anomalies include choroid plexus cyst, bilateral radial ray malformation, complex congenital heart disease, 2 vessel cordf, hypotelorism, and growth restriction. otherwise complicated by epilepsy, h/o 4th degree Induction termination - s/p mifepristone on arrival today - will do 400mcg PV miso q3h prn - pain: desires epidural. 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 Martínez who is in agreement with the treatment plan. Anastasia Mejia MD Obstetrics & Gynecology PGY-3 12:54 PM 10/28/2021 Physician Attestation I, Gia Martínez MD, saw this patient with the resident and agree with the resident/fellow's findings and plan of care as documented in the note. I personally reviewed vital signs, medications, labs, imaging and exam. Lane findings: 36 year old at 21w3d with past medical history significant for seizure disorder who presents for induction termination due to complicated by multiple anomalies concerning for trisomy 18. Patient is sure about her decision. A Women's Right to Know Consent obtained over the phone with me on 10/26/2021 at 1535. I completed the consent and administered mifepristone toStephanie today at 1210. Will induce labor with high dose misoprostol 400mcg vaginally q3h. Planningepidural for pain management. Does not want genetic testing or autopsy. Planning cremation for fetalremains, has been in contact with social work to make these arrangements. Has been granted compassionate care visit for her 2.5 year old daughter after of baby. Will continue her seizure medications (acetazolamide, keppra and lamictal), patient prefers to take her own supply so will send them down to pharmacy to verify. Questions answered, patient agrees with plan of care. Gia Martínez MD Date of Service (when I saw the patient): 10/28/21 GER EMS documented in this encounter Consult Notes Poornima Elizabeth - 10/28/2021 2:25 PM CSTAssociated Order(s): SPIRITUAL HEALTH SERVICES IP CONSULT SPIRITUAL HEALTH SERVICES SPIRITUAL ASSESSMENT Progress Note [facility] ([facility] 4COB ON-CALL VISIT REFERRAL SOURCE:Consult placed for pt asking for spiritual/emotional support: Induction of labor, fetus not compatible with life. Phone conversation with pt SOHEILA Carlton; will share information with overnight curator of collections and tomorrow's daytime snowsport instructor regarding follow up care. Baby's Name: Avtar Ryan Father's name: Amrit. Mother is asking for a blessing/prayer after baby is born. RN did not believe they wanted buddhist and will clarify if this is the request. Per RN, mom stated something connected with our Mosque background but does not have to be too formal. Poornima Elizabeth MDiv Associate Soils Engineer Pager [phone] Office [phone] [facility] remains available 29/04 for emergent requests/referrals, either by having the switchboard page the on-call snowsport instructor or by entering an ELIZABETH/STAT consult in [facility] (this will also page the on-call snowsport instructor). Routine [facility] consults receive an initial response within 24 hours. GER EMS documented in this encounter Miscellaneous Notes Plan of Care - Haley Lozano RN - 10/29/2021 2:40 PM CST Discharge teaching done regarding weaning milk supply and after loss education (see discharge instructions in navigator). Pt given Gia Fermin name as a resource if she would like to talk with someone. Patient and partner demonstrated understanding. No questions or concerns at this time. Encouraged to call if anything comes up. GER EMS Plan of Care - Bianka Hutson RN - 10/29/2021 2:40 PM CST Patient and spouse discharge to home education completed by Libia lozano RN. Patient and spouse grieving appropriately. With periods of laughing. Patient was able to eat and voiding as needed. Able to walk the room and to the nutrition room. Both parents holding the baby and taking photos. Asking questions, receptive to answers and advice. Will call her primary clinic with further questions. Was told she can Call the [facility] if needed GER EMS L&D Delivery Note - Gia Martínez MD - 10/29/2021 8:58 AM MANAGER EMS OB Vaginal Delivery Note Trinity Lozano Age: [age] year old Date of : 1985 GA: 21w4d GP: Labor Complications: None EBL: mL Delivery QBL: Delivery Type: Vaginal, Spontaneous ROM to Delivery Time: (Delivered) Hours: 1 Minutes: 45 [place] Weight: 1 Minute 5 Minute 10 Minute Totals: 0 0 0 Delivery Details: Vaginal Delivery Summary 21w4d Stage 1: Trinity Lozano is a 36 year old who presented on 10/28/2021 at 21w3d for termination induction for multiple anomalies concerning for Trisomy 18. She completed a Women's Right To Knowconsent on 10/26/21 at 1535 with [facility]. She received mifepristone 200mg PO and misoprostol 400mcg vaginally x2 doses. She received IV diluadid, IV fentanyl and an epidural for pain control. She developed ahigh fever of 103F which persisted for 6 hours. No tachycardia, no other symptoms of infection, WBC 9.6. She was empirically treated for triple I with ampicillin and gentamicin. Her fever did resolve. Decision made to not use any more misoprostol in case that was contributing to her fever. She was augmented with pitocin. No cervical change after 4 hours so velez bulb placed with 70mL of sterile water. SROM at 0602 clear fluid and velez bulb expelled. On sterile cervical exam on 10/29/2021 at 0730 thefetus was noted to be in the vagina. Stage 2: Pushed 3 times to deliver demised en caul on October 29, 2021 at 0747 from cephalic position.Cord was clamped and cut. Infant weight pending. Apgars 0 and 0. Stage 3: Cord avulsed with gentle traction while doing an exam to see where placenta was. Placenta was [facility] through cervix at this time so it was grasped between my fingers and came out easily with gentle traction. Minimal bleeding. Placenta appears intact but small, 2vc. Bedside transabdominal ultrasound performed with oncoming physician Dr. Tafoya present as well to confirm no retained products of conception. Endometrial stripe appeared thin and even. Minimal bleeding. EBL 100mL. Trinity in stable condition. Amrit holding baby. Gia Martínez MD Janna Lozano-Trinity FD [[id number]] Rupture date/time: 10/29/21 0602 Rupture type: Spontaneous rupture of membranes occuring during spontaneous labor or augmentation Fluid color: Clear, Bloody Fluid odor: Normal Induction: Misoprostol, Mechanical ripening agent Induction date/time: Cervical ripening date/time: Indications for induction: Abnormality Augmentation: Oxytocin Delivery/Placenta Date and Time Delivery Date: 10/29/21 Delivery Time: 7:47 AM Delivering clinician: Gia Martínez MD Apgars Living status: Demise 1 Minute 5 Minute 10 Minute 15 Minute 20 Minute Skin color: 0 0 0 0 0 Heart rate: 0 0 0 0 0 Reflex irritability: 0 0 0 0 0 Muscle tone: 0 0 0 0 0 Respiratory effort: 0 0 0 0 0 Total: 0 0 0 0 0 Cord Cord Complications: None Stem cell collection?: No Delivery (Maternal) (Provider to Complete) ([id number]) Episiotomy: None Perineal lacerations: None Genital tract inspection done: Pos Blood Loss Mother: Trinity Lozano #[id number] Start of Mother's Information Delivery Blood Loss 10/28/21 1947 - 10/29/21 0909 None End of Mother's Information Mother: Trinity Lozano #[id number] Delivery - Provider to Complete ([id number]) Delivering clinician: Gia Martínez MD Attempted Delivery Types (Choose all that apply): Spontaneous Vaginal Delivery Delivery Type (Choose the 1 that will go to the History): Vaginal, Spontaneous Placenta Removal: Spontaneous Comments: small but appears intact, 2vc Disposition: Pathology Presentation and Position Presentation: Vertex Gia Martínez MD GER EMS Plan of Care - Trinity Burton RN - 10/29/2021 7:47 AM CST VSS and afebrile this shift. PO tylenol given as scheduled. Blood pressure on lower end of normal and 250 ml bolus given and patient asymptomatic. See MAR. Velez placed and clear, straw colored urine. Antibiotics given per orders. SROM for clear bloody fluid at 0602 and velez balloon out at 0604. Instructed patient to call out if feeling pain or pressure. Repositioned throughout shift as needed. Willcontinue with plan of care and update provider with any questions or concerns. GER EMS Provider Notification - Trinity Burton RN - 10/29/2021 3:15 AM MANAGER EMS 10/29/21 0154 Provider Notification Provider Name/Title Dr. Mejia Method of Notification At Bedside Request Evaluate in Person Notification Reason Labor Status;SVE SVE and provider unable to evaluate cervix due to velez balloon being in place. Provider gently tugged on velez balloon and still in place. Will continue to monitor and continue with plan of care. GER EMS Plan of Care - Anabel Busby RN - 10/28/2021 11:07 PM CST Patient febrile. All other VSS. Chills earlier in evening, resolved following use of warming blanket. Tylenol given and IV antibiotics started due to fever not responding to environment temperature changes and Tylenol. Pain well controlled with epidural in place. No bleeding or LOF present. Velez in place with 70 mL sterile water and pitocin for IOL. Bedside ultrasound requested by patient, performedby Dr. Martínez and confirmed no longer cardiac activity. Patient and appropriately grieving, found comfort in talking with daughter following finding out their baby had passed. Patient planning for snowsport instructor to visit after delivery and requesting buddhist. Will continue with current plan of care. GER EMS Provider Notification - Anabel Busby RN - 10/28/2021 6:21 PM CST 10/28/211810 Provider Notification Provider Name/Title Dr. Martínez Method of Notification At Bedside Request Evaluate in Person Notification Reason SVE;Other (Comment) Provider notified pt shaking and feeling cold following miso and epidural placement. Many blankets placed, pt temperature elevated to 100 degrees without blankets. SVE performed by , Tylenol offered to pt. Tre parrish applied. WIll continue to monitor. GER EMS Plan of Care - Bianka Hutson RN - 10/28/2021 3:54 PM CST Patient is here for Induction for trisomy 18. She and her spouse are coping well. They desire to hold the baby boy and to have mementos. They would like the [place] after the baby is born to do a prayer and blessing. The child psychologist gave them lots of resources to help with talking to their daughter bout knowing she had a baby brother who passed as a baby as she gets older GER EMS documented in this encounter Plan of Treatment Not on filedocumented as of this encounter Procedures Procedure Name Priority Date/Time Associated Comments Diagnosis PLACENTA PATH ORDER Routine 10/29/2021 12:49 Resu lts for this AND INDICATIONS PM MANAGER EMS procedure ar e in the results section. CBC WITH PLATELETS Routine 10/28/2021 9:21 PM Res ults for this MANAGER EMS procedure are i n the results section. TYPE AND SCREEN, Routine 10/28/2021 10:23 Results for this ADULT AM MANAGER EMS procedure are i n the results section. ABO/RH TYPE AND Routine 10/28/2021 10:23 Results for this SCREEN AM MANAGER EMS procedure are i n the results section. CBC WITH PLATELETS Routine 10/28/2021 10:23 Resul ts for this AM MANAGER EMS procedure are i n the results section. COVID-19 VIRUS STAT 10/28/2021 10:05 Results f or this (CORONAVIRUS) BY PCR AM MANAGER EMS procedu re are in the results section. HEPATITIS B SURFACE Routine 07/25/2021 12:00 Resu lts for this ANTIGEN (EXTERNAL PM CDT procedure are in RESULT) the results section. HIV 1&2 ANTIBODY Routine 07/25/2021 12:00 Results for this (EXTERNAL RESULT) PM CDT procedure are in the results section. RUBELLA ANTIBODY IGG Routine 07/25/2021 12:00 Res ults for this (EXTERNAL RESULT) PM CDT procedure are in the results section. documented in this encounter Results Placenta path order and indications (10/29/2021 12:49 PM MANAGER EMS) Component Value Ref Test Analysis Performed At [facility] gist Range Method Time Signature Case Report Peds Surgical Pathology Repo rt ?Case: [id number] ? 03/11/2022 UU Authorizing Provider: ??Stew art, Lin Tran MD ?Collected: ? 10/29/2021 12:49 PM ? 9:43 PM LABORATOR Y Ordering Location: ? [facility] ?Received: ?10/30/2021 11:00 AM ? CDT ? [facility] ? Pathologist: ? Byron Sainz MD ? Specimen: ?Placenta, [facility] ? Final Placenta, Mid Second Trimester, 57 Grams (<10th Percen tile), Delivery: 03/11/2022 UU Electronically Diagnosis 9:43 PM LABORATORY signed by Chorionic Villi: CDT yBron Valentine - Appropriate Maturation For Gestational Age. MD Gerard on 03/11/2022 a t 9:43 Membranes: PM - No Pathologic Diagnosis. Umbilical Cord: - Two Blood Vessels, No Pathologic Diagnosis. Clinical Trisomy 18 03/11/2022 UU Information 9:43 PM LABORATORY CDT Gross A(A). Placenta, placenta: 03/11/2022 UU Description Received fresh, labeled with the patient's name and medical record number and designated as Placenta is a placenta with attached membranes and umbilical cord. The membranes are morin, translucent, and i 9:43 PM LABORATORY ncomplete and the site of ru pture cannot be identified. The membrane insertion is marginal. The 2-vessel umbilical cord measures 16.0 cm in length, 1.1 cm in diameter, has approximately 1 coil per 10 cm CDT , and inserts essentially, 2 .8 cm from the nearest placental margin. The cord is morin-white with no gross lesions. The chorionic plate vessels are small- caliber and no thrombi are noted. The placental di sc is ovoid, purple-tinged, measures 12.2 x 9.0 cm, has a thickness ranging from 0.5 to 1.2 cm and a trimmed weight of 57 g. The maternal surface is mildly disrupted and completeness cannot be determine d. The parenchyma is morin-red and spongy. No gross lesions ar e present. A1: membrane roll; end of umbilical cord and placental end of umbilical cord (inked) A2-A3: full-thickness, non-marginal sections Microscopic A microscopic examination wa s done. The results are reflected in the above diagnoses. 03/11/2022 UU Description 9:43 PM LABORATORY CDT Performing The technical 03/11/2022 UR Labs component of 9:43 PM LABORATORY this testing was CDT completed at [facility] Laboratory Case Images 03/11/2022 UU 9:43 PM LABORATORY CDT Specimen Anatomical Collection Method Collection Time Receive d Time (Source) Location / / Volume Laterality Placenta PLACENTAL Non-blood 10/29/2021 12:49 10/30/2021 STRUCTURE / Collection / PM MANAGER EMS 11:00 AM MANAGER EMS Unknown Unknown Lin Lemon MD LAB - JENI LUGO Performing Organization Address City/State/ZIP Code Phon [place] [address] [phone] Lab [address] [facility], Room 3580 UR [place], [place] [phone] [facility] Lab [id number], Room [address] (ABNORMAL) CBC with platelets (10/28/2021 9:21 PM MANAGER EMS) [facility] Method Time Signature WBC Count 9.6 4.0 - 11.0 10/28/2021 UR LABORATORY 10e3/uL 9:28 PM MANAGER EMS RBC Count 3.62 (L) 3.80 - 10/28/2021 UR LABORATORY 5.20 9:28 PM MANAGER EMS 10e6/uL Hemoglobin 11.1 (L) 11.7 - 10/28/2021 UR LABORATORY 15.7 g/dL 9:28 PM MANAGER EMS Hematocrit 32.7 (L) 35.0 - 10/28/2021 UR LABORATORY 47.0 % 9:28 PM MANAGER EMS MCV 90 78 - 100 10/28/2021 UR LABORATORY fL 9:28 PM MANAGER EMS MCH 30.7 26.5 - 10/28/2021 UR LABORATORY 33.0 pg 9:28 PM MANAGER EMS MCHC 33.9 31.5 - 10/28/2021 UR LABORATORY 36.5 g/dL 9:28 PM MANAGER EMS RDW 12.7 10.0 - 10/28/2021 UR LABORATORY 15.0 % 9:28 PM MANAGER EMS Platelet Count 229 150 - 450 10/28/2021 UR LABORATORY 10e3/uL 9:28 PM MANAGER EMS Specimen Anatomical Collection Method / Collection Time Recei chelsey Time (Source) Location / Volume Laterality Blood STRUCTURE OF LEFT Venipuncture / 10/28/2021 9:21 10/28 9:26 HAND / Unknown Unknown PM MANAGER EMS PM MANAGER EMS Anastasia Mejia MD LAB - BLOOD ORDERABLES Performing Organization Address City/State/ZIP Code Phon e Number UR LABORATORY [facility] [place] [address] Care Lab [address] [place] [address], Room M309 Adult Type and Screen (10/28/2021 10:23 AM MANAGER EMS) Patholo gist Method Time Signature ABO/RH(D) O POS 10/28/2021 UR BLOOD 10:00 AM BANK MANAGER EMS Antibody Negative Negative 10/28/2021 UR BLOOD Screen 10:00 AM BANK MANAGER EMS SPECIMEN [id number] 10/28/2021 UR BLOOD EXPIRATION 10:00 AM BANK DATE MANAGER EMS Specimen Anatomical Collection Method / Collection Time Recei chelsey Time (Source) Location / Volume Laterality Blood STRUCTURE OF LEFT Venipuncture / 10/28/2021 10:23 10/08 HAND / Unknown Unknown AM MANAGER EMS 10:46 AM MANAGER EMS Anastasia Mejia MD LAB - BLOOD BANK TEST ORDER Performing Organization Address City/State/ZIP Code Phon e Number UR BLOOD BANK [facility] [place] [address] Components Lab [address] [place] [address], Room M301 CBC with platelets (10/28/2021 10:23 AM MANAGER EMS) P athologist Signature WBC Count 8.4 4.0 - 11.0 10/28/2021 UR CHILDREN 10e3/uL 10:53 AM MANAGER EMS LABORATORY RBC Count 3.94 3.80 - 10/28/2021 UR [facility] 5.20 10:53 AM MANAGER EMS LABORATORY 10e6/uL Hemoglobin 12.0 11.7 - 10/28/2021 UR [facility] 15.7 g/dL 10:53 AM MANAGER EMS LABORATORY Hematocrit 36.7 35.0 - 10/28/2021 UR [facility] 47.0 % 10:53 AM MANAGER EMS LABORATORY MCV 93 78 - 100 10/28/2021 UR [facility] fL 10:53 AM MANAGER EMS LABORATORY MCH 30.5 26.5 - 10/28/2021 UR [facility] 33.0 pg 10:53 AM MANAGER EMS LABORATORY MCHC 32.7 31.5 - 10/28/2021 UR [facility] 36.5 g/dL 10:53 AM MANAGER EMS LABORATORY RDW 12.9 10.0 - 10/28/2021 [facility] 15.0 % 10:53 AM MANAGER EMS LABORATORY Platelet Count 247 150 - 450 10/28/2021 UR [facility] 10e3/uL 10:53 AM MANAGER EMS LABORATORY Specimen Anatomical Collection Method / Collection Time Recei chelsey Time (Source) Location / Volume Laterality Blood STRUCTURE OF LEFT Venipuncture / 10/28/2021 10:23 10/08 HAND / Unknown Unknown AM MANAGER EMS 10:46 AM MANAGER EMS Anastasia Mejia MD LAB - BLOOD ORDERABLES Performing Organization Address City/State/ZIP Code Phon e Number [facility] [place] [address] [place] [address] [facility] [address] [place] [id number] Asymptomatic COVID-19 Virus (Coronavirus) by PCR Nose (10/28/2021 10:05 AM MANAGER EMS) Analysis Performed At Patho logist Time Signature SARS CoV2 PCR Negative Negative 10/28/2021 UR LABORATORY 10:40 AM MANAGER EMS Comment: NEGATIVE: SARS-CoV-2 (COVID-19) RNA not detected, presumed negative. Specimen Anatomical Collection Method Collection Time Receive d Time (Source) Location / / Volume Laterality Swab NASAL STRUCTURE / Non-blood 10/28/2021 10:05 01/22/ 2022 Unknown Collection / AM MANAGER EMS 10:12 AM MANAGER EMS Unknown Narrative UR LABORATORY - 10/28/2021 10:40 AM MANAGER EMS Testing was performed using the slim?? SARS-CoV-2 & Influenza A/B Assay on the slim?? Stephanie?? System. ??This test shoul d be ordered for the detection of SARS-COV-2 in individuals who meet SARS-CoV-2 clini kumar and/or epidemiological criteria. Test performance is unknown in asymptomatic p atients. ??This test is for in vitro diagnostic use under the FDA EUA for lab oratories certified under CLIA to perform moderate and/or high complexity testing. This test has not been FDA cleared or approved. ??A negative test does not rul e out the presence of PCR inhibitors in the specimen or target RNA in concentration below the limit of detection for the assay. The possibility of a false negative shou ld be considered if the patient's recent exposure or clinical presentation sugges ts COVID-19. ??[facility] are certified under the Clinical Laborat ory Improvement Amendments of 1988 (CLIA-88) as qualified to perform moderate and/or high complexity laboratory testing. Anastasia Mejia MD LAB - MICRO GENERAL ORDERABL ES Performing Organization Address City/State/ZIP Code Phon [place] [address] Care Lab [facility], Room M309 Rubella Antibody IgG (External Result) (07/25/2021 12:00 PM CDT) [facility] Method Time Signature Rubella Nonreactive Nonreactive [place] [facility] (External) Comment: 10 Specimen (Source) Anatomical Collection Method Collection Time Re ceived Time Location / / Volume Laterality 07/25/2021 12:00 PM CDT January [facility] LAB - HIM EXTERNAL RESULT Performing Organization Address City/State/ZIP Code Phon e Number [facility] [address] [place] [address] Hepatitis B Surface Antigen (External Result) (07/25/2021 12:00 PM CDT) [facility] Method Time Signature Hepatitis B Nonreactive Nonreactive [facility] Antigen (External) Specimen (Source) Anatomical Collection Method Collection Time Re ceived Time Location / / Volume Laterality 07/25/2021 12:00 PM CDT January [facility] LAB - HIM EXTERNAL RESULT Performing Organization Address City/State/ZIP Code Phon e Number [facility] [address] [place] [address] HIV-1 Antibody (External Result) (07/25/2021 12:00 PM CDT) [facility] gist Method Time Signature HIV 1&2 Negative Nonreactive [facility] (External) Specimen (Source) Anatomical Collection Method Collection Time Re ceived Time Location / / Volume Laterality 07/25/2021 12:00 PM CDT January [facility] LAB - HIM EXTERNAL RESULT Performing Organization Address City/[facility]/ZIP Code Phon e Number [facility] [address] [place] [address] documented in this encounter Visit Diagnoses Diagnosis Encounter for induction of labor documented in this encounter Admitting Diagnoses Diagnosis Encounter for induction of labor documented in this encounter Administered Medications Inactive Administered Medications - up to 3 most recent administrations Medication Order MAR Action Action Date Dose Rate Site acetaminophen (TYLENOL) tablet 650 Given 10/28/2021 6:26 PM MANAGER EMS 650 mg mg 650 mg, Oral, EVERY 4 HOURS PRN, mild pain, fever, greater than or equal to 38?? C /100.4?? F (oral) or 38.5?? C/ 101.4?? F (core)., Starting on 10/28/21 at 1039, Maximum acetaminophen dose from all sources = 75 mg/kg/day not to exceed 4 grams/day., Intrapartum acetaminophen (TYLENOL) tablet 975 mg Given 10/29/2021 9:06 AM MANAGER EMS 975 mg 975 mg, Oral, EVERY 6 HOURS, First dose on 10/28/21 at 2100, Scheduled acetaminophen (TYLENOL) until delivery for Intrapartum Intra-Amniotic Infection/Inflammation (Triple I). Nurse may discontinue this order with delivery. Maximum acetaminophen dose from all sources = 75 mg/kg/day not to exceed 4 grams/day., Intrapartum Given 10/29/2021 3:47 AM MANAGER EMS 975 mg Given 10/28/2021 10:21 PM MANAGER EMS 975 mg Acetazolamide ER 500mg (HOME MED) Nos Given 10/29/2021 8:48 AM MANAGER EMS 500 mg 500 mg, Oral, 2 TIMES DAILY, First dose on 10/28/21 at 2000 Given 10/28/2021 8:19 PM MANAGER EMS 500 mg ampicillin (OMNIPEN) 2 g vial to attach to NS New Bag 3:47 AM MANAGER EMS 2 g 100 mL bag STAT, 2 g, Intravenous, EVERY 6 HOURS, First dose on 10/28/21 at 2100, Give until delivery., Indications: Skin and Soft Tissue Infection, Intrapartum New Bag 10/28/2021 8:48 PM MANAGER EMS 2 g diphenoxylate-atropine (LOMOTIL) Given 10/28/2021 12:10 PM MANAGER EMS 2 tablets 2.5-0.025 MG per tablet 2 tablet 2 tablet, Oral, EVERY 6 HOURS PRN, diarrhea, Starting on 10/28/21 at 1230, Do not exceed 8 tabs in 24 hours, Intrapartum fentaNYL (PF) (SUBLIMAZE) 100 MCG/2ML in jection Starting on 10/28/21 at 1645, For 1 dose, Radames Busby ie: cabinet override fentaNYL (PF) (SUBLIMAZE) injection 100 mcg Given 10/28/2021 4:47 PM MANAGER EMS 100 mcg 100 mcg, Intravenous, ONCE, On 10/28/21 at 1700, For 1 dose fentaNYL (SUBLIMAZE) 2 mcg/mL, New Syringe/Cartridge 10/28/2021 5:34 PM MANAGER EMS ROPivacaine (NAROPIN) 0.1% in NaCl 0.9% for PIB + PCEA PREMIX PIB BOLUS (mL): 6, PIB BOLUS INTERVAL (Minutes): 40, PCEA dose (mL): 6, PCEA Lockout Interval (min): 10 minutes, Hour Limit (mL): 32, PIB - Programmed Intermittent Bolus (Epidural) PCEA - Patient Controlled Epidural Analgesia Initial PIB Next Bolus will be scheduled for 30 minutes after infusion STARTED. PIB Bolus: Range 0-9 mL PIB Bolus Interval: Range 30-60 minutes PCEA Dose: Range 0-10 mL PCEA Lockout: Range 10-60 minutes One-hour limit: Range 0.1-50 mL Absolutely no anticoagulants, thrombolytics or antiplatelet medications or other opioid analgesics or other sedatives without prior notification of anesthesiology. For CADD cassettes, pharmacy to send epidural tubing set., Routine rxshoDRD-plyobavbsey-JK 0.4-0.1-0.9 MG/2 00ML-% injection Angeline Heck: cabinet override Absolutely no anticoagul ants, thrombolytics or antiplatelet medications or other opioid analgesics or other sedatives without prior notification of anesthesiology. Fo r CADD cassettes, pharmacy to send epidural tubing set., 1 dose, Starting on 10/28/21 at 1703, Until 10/28/21 at 1734 gentamicin (GARAMYCIN) 140 mg in sodium New Bag 10/28/2021 9:29 PM MANAGER EMS 140 mg chloride 0.9 % 50 mL intermittent infusi on STAT, 140 mg (rounded from 132 mg = 2 mg/kg ? 66 kg Adjusted weight), Intravenous, ONCE, On 10/28/21 at 2100, For 1 dose, LOADING DOSE., Indications: Skin and Soft Tissue Infection, Intrapartum gentamicin (GARAMYCIN) infusion 100 mg New Bag 10/29/2021 6:08 AM MANAGER EMS 100 mg Routine, 100 mg (rounded from 99 mg = 1.5 mg/kg ? 66 kg Adjusted weight), Intravenous, EVERY 8 HOURS, First dose on 10/29/21 at 0500, Starting 8 hours after loading dose. Give until delivery., Indications: Skin and Soft Tissue Infection, Intrapartum HYDROmorphone (DILAUDID) injection 0.4 m g Given 10/28/2021 4:11 PM MANAGER EMS 0.4 mg 0.4 mg, Intravenous, EVERY 2 HOURS PRN, severe pain, with induction procedure., Starting on 10/28/21 at 1040, Intrapartum lactated ringers BOLUS 250 mL Rate/Dose Change 10/29/2021 5:37 AM MANAGER EMS Intravenous, 250 mL, ONCE PRN, other, hypotension, Starting on 10/28/21 at 1656, For 1 dose, If no improvement in Blood Pressure with repositioning(if ordered), administer IV bolus as ordered. Treat for Systolic Blood Pressure less than 100 mmHg or drop in Blood Pressure by 20%. If unresponsive to Fluid Bolus, administer ePHEDrine OR phenylephrine (CELIA-SYNEPHRINE) [if ordered] or page Anesthesia., Intrapartum lactated ringers infusion New Bag 10/29/2021 2:32 AM MANAGER EMS 125 mL/hr at 25-125 mL/hr, Intravenous, CONTINUOUS PRN, Titrate lactated ringers rate to obtain total IV intake of 125 mL/hr. Total IV fluids should not exceed 125 mL/hr without provider order., Intrapartum, Starting on 10/28/21 at 1909, Until 10/29/21 at 0958 lactated ringers injection New Bag 10/28/2021 5:38 PM MANAGER EMS 1,000 mLs 125 mL/hr Angeline Busby: cabinet override, 1 dose, Starting on 10/28/21 at 1630, Until 10/28/21 at 1738 lactated ringers injection New Bag 10/28/2021 4:38 PM MANAGER EMS 1,000 mLs 999 mL/hr Angeline Busby: cabinet override, 1 dose, Starting on 10/28/21 at 1630, Until 10/28/21 at 1638 lamoTRIgine (LaMICtal) tablet 400 mg Given 10/29/2021 8:48 AM CS T 400 mg Pt-Supplied 400 mg, Oral, 2 TIMES DAILY, First dose (after last modification) on 10/28/21 at 2000, Patient to take home supply Given 10/28/2021 8:19 PM MANAGER EMS 400 mg Levetiracetam 1000mg tablet (HOME MED) A ur Given 10/29/2021 8:48 AM MANAGER EMS 1,000 mg 1,000 mg, Oral, 2 TIMES DAILY, First dose on 10/28/21 at 2000 Given 10/28/2021 8:20 PM MANAGER EMS 1,000 mg miFEPRIStone (MIFEPREX) tablet 200 mg Given 10/28/2021 12:11 PM MANAGER EMS 200 mg 200 mg, Oral, ONCE, On 10/28/21 at 1300, For 1 dose, Concurrent administration with misoprostol if not previously given 24-48 hours prior to administration of misoprostol., Intrapartum, I attest that as a prescriber of mifepristone, I meet the qualifications and will follow the guidelines outlined in the Prescriber Agreement Form: Yes, Has the patient received the Medication Guide? Yes, Is the Patient agreement signed and scanned? Yes misoprostol (CYTOTEC) tablet 400 mcg Given 10/28/2021 3:56 PM MANAGER EMS 400 mcg 400 mcg, Vaginal, EVERY 3 HOURS, First dose on 10/28/21 at 1300, Place in the posterior vaginal fornix. First dose to be administered concurrently with miFEPRIStone., Intrapartum Given 10/28/2021 12:09 PM MANAGER EMS 400 mcg nalbuphine (NUBAIN) injection 2.5-5 mg 2.5-5 mg, Intravenous, EVERY 6 HOURS PRN, other, for p ruritus, Starting on 10/28/21 at 1656, Give 2.5 mg initially. If pruritus persists after 30 minutes, may give additional 2.5 mg. If effective, th en repeat effective dose Q6H PRN pruritus., Intra + Post naloxone (NARCAN) injection 0.2 mg 0.2 mg, Intravenous, EVERY 2 MIN PRN, op ioid reversal, Starting on 10/28/21 at 1052, Administer intravenous route when available and notify provider when administered. For unintended sedation or respiratory depression if all of the below criteria are met: ~ respiratory rate LES S than or EQUAL to 8. ~SaO2 less than 92% and or/end-tidal CO2 is greater than 50. ~ the patient is receiving an opioid, has unintended sedations assessed as RASS (-3), and is cur rently not on mechanical ventilation. RASS scale moderate (-3) is movement or eye opening to voice but no eye contact. Patient Monitoring Once the patient has demonstrated a response to the naloxone, continue to monitor respiratory rate, depth, oxygen saturation and end-tidal CO2 (if available) every 15 mi nutes x 2, then every 30 minutes x 2, then every 1 hour x 1 after each naloxone dose. Consider tr ansfer to ICU if patient respiratory parameters have not improved after 4 nalox one doses. naloxone (NARCAN) injection 0.2 mg 0.2 mg, Intramuscular, EVERY 2 MIN PRN, opioid reversal, Starting on 10/28/21 at 1052, Administer intramuscular if an int ravenous route is not available and notify provider when administered. For unintend ed sedation or respiratory depression if all of the below criteria are met: ~ respiratory rate LESS than or EQUAL to 8. ~SaO2 less than 92% and or/end-tidal CO2 is greater th an 50. ~ the patient is receiving an opioid, has unintended sedations assessed as RASS (-3), and is currently not on mechanical ventilation. RASS scale moderate (-3) is movement or eye opening to voice but no eye contact. Patient Monitoring Once the patient has demonstrated a response to the naloxone, continue to m onitor respiratory rate, depth, oxygen saturation and end-tidal CO2 (if availab le) every 15 minutes x 2, then every 30 minutes x 2, then every 1 hour x 1 after each naloxone dose. Consider transfer to ICU if patient respiratory parameters have not improved after 4 naloxone doses. naloxone (NARCAN) injection 0.4 mg 0.4 mg, Intravenous, EVERY 2 MIN PRN, op ioid reversal, Starting on 10/28/21 at 1052, Administer intravenous route when available and notify provider when administered. For unintended sedation or respiratory depression if all of the below criteria are met: ~ respiratory rate LES S than or EQUAL to 8. ~ SaO2 less than 92% and or/end-tidal CO2 is greater than 50. ~ the patient is receiving an opioid, has unintended sedation assessed as RASS (-4 ) or (-5) and patient is currently not on mechanical ventilation. RASS scale (-4) is deep sedation with no response to voice but movement or eye opening to physical stimulation. R ASS scale (-5) is unarousable. Patient Monitoring Once the patient has demonstrated a response to the naloxone, continue to monitor respiratory rate, depth, oxygen saturation and end-tidal CO2 (if available) every 15 mi nutes x 2, then every 30 minutes x 2, then every 1 hour x 1 after each naloxone dose. Consider tr ansfer to ICU if patient respiratory parameters have not improved after 4 nalox one doses. naloxone (NARCAN) injection 0.4 mg 0.4 mg, Intramuscular, EVERY 2 MIN PRN, opioid reversal, Starting on 10/28/21 at 1052, Administer intramuscular if an int ravenous route is not available and notify provider when administered. For unintend ed sedation or respiratory depression if all of the below criteria are met: ~ res piratory rate LESS than or EQUAL to 8. ~ SaO2 less than 92% and or/end-tidal CO2 is greater jacquelyn n 50. ~ the patient is receiving an opioid, has unintended sedation assessed as RASS (-4) or (-5) and patient is currently not on mechanical ventilation. RA SS scale (-4) is deep sedation with no response to voice but movement or eye opening to physical stimulation. RASS scale (-5) is unarousa ble. Patient Monitoring Once the patient has demonstrated a response to the nalox one, continue to monitor respiratory rate, depth, oxygen saturation and end-tidal CO2 (if availab le) every 15 minutes x 2, then every 30 minutes x 2, then every 1 hour x 1 after each naloxone dose. Consider transfer to ICU if patient respiratory parameters have not improved after 4 naloxone doses. oxytocin (PITOCIN) 30 Rate/Dose Change 10/29/2021 5:38 20 jose-uni ts/min 20 mL/hr units in 500 mL 0.9% AM MANAGER EMS NaCl infusion 1-24 jose-units/min (1-24 mL/hr), Intravenous, CONTINUOUS, Starting on 10/28/21 at 1930, Start infusion at 2 jose-units/min. Increase by 2 jose-units/min every 30 minutes until contractions are 2-3 minutes apart, lasting 45 to 60 seconds in duration to achieve labor progress. Max rate is 24 milliunits/min. Do NOT go higher without a provider order. If oxytocin (PITOCIN) infusion is discontinued and off for less than 30 minutes, restart infusion at half of previous oxytocin (PITOCIN) rate. If oxytocin (PITOCIN) infusion has been discontinued equal to or greater than 30 minutes, begin at initial dose. IF another cervical ripening medication is ordered wait 60 minutes after oxytocin (PITOCIN) infusion is stopped before administering cervical ripening medication., Intrapartum Rate/Dose Change 10/29/2021 4:42 AM MANAGER EMS 18 jose-units/min 18 mL/hr Rate/Dose Change 10/29/2021 3:30 AM MANAGER EMS 16 jose-units/min 16 mL/hr phenylephrine (CELIA-SYNEPHRINE) 100 mcg/m L injection Starting on 10/28/21 at 1703, For 1 dose, Radames Busby ie: cabinet override Vesicant. phenylephrine (CELIA-SYNEPHRINE) injection 100 Given 6:41 PM MANAGER EMS 100 mcg mcg 100 mcg, Intravenous, EVERY 5 MIN PRN, if Systolic Blood Pressure less than 100 mmHg and Heart Rate greater than 55 bpm, Starting on 10/28/21 at 1656, For 4 doses, Check Blood Pressure EVERY 2 minutes and repeat PRN for 4 Doses. IF patient remains hypotensive (Systolic Blood Pressure less than 100 mmHg) AFTER the 4 dose, notify Anesthesia. Notify Anesthesia PRIOR to administering additional doses. Vesicant., Intrapartum Given 10/28/2021 6:34 PM MANAGER EMS 100 mcg documented in this encounter Active and Recently Administered Medications Times are shown in MANAGER EMS. Scheduled Medication Order 10/27/2021 10/28/2021 10/29/2021 acetaminophen (TYLENOL) tablet 975 mg (CANCELED) 2220 (Given - Provider: Anabel Busby RN - Comment: Per , brenda to give dose 4 hours post 650 mg dose) 034 (Given - Provider: Trinity albarado RN)09 (Given - Provider: Bianka Hutson RN) 975 mg, Oral, EVERY 6 HOURS, First dose on 10/28/21 at 2100, Scheduled acetaminophen (TYLENOL) until delivery for Intrapartum Intra-Amniotic Infection/Inflammation (Triple I). Nurse may discontinue t his order with delivery. Maximum acetami nophen dose from all sources = 75 mg/kg/day not to exceed 4 grams/day., Intrapartum Acetazolamide ER 500mg (HOME MED) Nos 20 19 (Given - Provider: Anabel Busby RN) 0848 (Given - Provider: Bianka mojica RN) 500 mg, Oral, 2 TIMES DAILY, First dose on 10/28/21 at 2000 ampicillin (OMNIPEN) 2 g vial to attach to NS 100 mL bag (CA NCELED) 2047 (New Bag - Provider: Anabel Busby RN) 034 (New Bag - Provider: Trinity Burton RN)0900 (Canceled Entry - Provider: Tracie Barnard MD - Comment: Automatically canceled at discontinue of medication order) STAT, 2 g, Intravenous, EVERY 6 HOURS, F irst dose on 10/28/21 at 2100, Give until delivery., Indications: Skin and Soft Tissue Infection, Intrapartum docusate sodium (COLACE) capsule 100 mg 1129 (Not Given - Provider: Bianka Hutson RN - Reason: Patient/family refused) 100 mg, Oral, DAILY, First dose on Sun at 1000, Hold for loose stools., fentaNYL (PF) (SUBLIMAZE) injection 100 mcg (COMPLETED) 164 (Given - Provider: Anabel Busby RN) 100 mcg, Intravenous, ONCE, On 10/28/21 at 1700, For 1 dose gentamicin (GARAMYCIN) 140 mg in sodium chloride 0.9 % 50 mL intermittent infusion (COMPLETED) 2128 (New Bag - Provider: Anabel robert RN) STAT, 140 mg (rounded from 132 mg = 2 mg /kg ? 66 kg Adjusted weight), Intravenous, ONCE, On 10/28/21 at 2100, For 1 dose, LOADING DOSE., Indications: Skin and Soft Tissue Infection, Intrapartum gentamicin (GARAMYCIN) infusion 100 mg (CANCELED) 607 (New Bag - Provider: Trinity Burton RN) Routine, 100 mg (rounded from 99 mg = 1. 5 mg/kg ? 66 kg Adjusted weight), Intravenous, EVERY 8 HOURS, First dose on 10/29/21 at 0500, Starting 8 hours after loading dose. Give until delivery., Indic ations: Skin and Soft Tissue Infection, Intrapartum lamoTRIgine (LaMICtal) tablet 400 mg Pt-Supplied 2018 (Given - Provider: Anabel Busby RN) 0848 (Given - Provider: Bianka mojica RN) 400 mg, Oral, 2 TIMES DAILY, First dose (after last modification) on 10/28/21 at 2000, Patient to take home supply Levetiracetam 1000mg tablet (HOME MED) Aur 2019 (Given - Provider: Anabel Busby RN) 0848 (Given - Provider: Bianka mojica RN) 1,000 mg, Oral, 2 TIMES DAILY, First dose on 10/28/21 at 2000 miFEPRIStone (MIFEPREX) tablet 200 mg (COMPLETED) 121 (Given - Provider: Bianka Hutson RN) 200 mg, Oral, ONCE, On 10/28/21 at 13 00, For 1 dose, Concurrent administration with misoprostol if not previously given 24-48 hours prior to administration of misoprostol., Intrapartum, Is the Provid er Agreement signed and distributor acco unt established? Yes, Has the patient received the Medication Guide? Yes, Is the Patient agreement signed? Yes misoprostol (CYTOTEC) tablet 400 mcg (CANCELED) 1209 (Given - Provider: Bianka Hutson RN)1556 (Given - Provider: Anabel Busby, SOHEILA)1843 (Hold - Provider: Anabel Busby RN - Reason: Order parameters not met) 0300 (Not Given - Provider: Trinity Burton RN - Reason: Med discontinued by Provider)0600 (Not Given - Provider: Trinity Burton RN - Reason: Med discontinued by Provider) 400 mcg, Vaginal, EVERY 3 HOURS, First d ose on 10/28/21 at 1300, Place in the posterior vaginal fornix. First dose to be administered concurrently with miFEPRIStone., Intrapartum 2109 (Not Given - Provider: Anabel Busby RN - Reason: Med discontinued by Provider)2343 (Not Given - Provider: Trinity Burton RN - Reason: Med discontinued by Provider) 0850 (Not Given - Provider: Bianka Hutson RN - Reason: Order parameters not met) Continuous Medication Order 10/27/2021 10/28/2021 10/29/2021 fentaNYL (SUBLIMAZE) 2 mcg/mL, ROPivacai ne (NAROPIN) 0.1% in NaCl 0.9% for PIB + PCEA PREMIX (CANCELED) 1734 (New Syringe/Cartridge - Provider: Anabel Busby RN) 0752 (Stopped - Provider: Bianka tubbs RN) PIB BOLUS (mL): 6, PIB BOLUS INTERVAL (M inutes): 40, PCEA dose (mL): 6, PCEA Lockout Interval (min): 10 minutes, Hour Limit (mL): 32, PIB - Programmed Intermittent Bolus (Epidural) PCEA - Patient Contro lled Epidural Analgesia Initial PIB Nex t Bolus will be scheduled for 30 minutes after infusion STARTED. PIB Bolus: Range 0-9 mL PIB Bolus Interval: Range 30-60 minutes PCEA Dose: Range 0-10 mL PCEA Lo ckout: Range 10-60 minutes One-hour limi t: Range 0.1-50 mL Absolutely no anticoagulants, thrombolytics or antiplatelet medications or other opioid analgesics or other sedatives without prior notificatio n of anesthesiology. For CADD cassettes, pharmacy to send epidural tubing set., Routine oxytocin (PITOCIN) 30 units in 500 mL 0.9% NaCl infusion (CA NCELED) 184 (Hold - Provider: Anabel Busby RN - Reason: Order parameters not met)2005 (New Bag - Provider: Anabel Busby, SOHEILA)210 (Rate/Dose Change - Provider: Anabel Busby RN)214 (Rate/Dose Change - Provider: Anabel Busby RN) 001 (Rate/Dose Change - Provider: Trinity Burton RN)0200 (Rate/Dose Change - Provider: Trinity Burton RN)0242 (Rate/Dose Change - Provider: Trinity Burton RN)0330 (Rate/Dose Change - Provider: Trinity Burton RN) 1-24 jose-units/min (1-24 mL/hr), Intra venous, CONTINUOUS, Starting on 10/28/21 at 1930, Start infusion at 2 jose-units/min. Increase by 2 jose- units/min every 30 minutes until contractions are 2- 2 222 (Rate Change (Transfusion) - Provider: Anabel Busby RN) 0442 (Rate/Dose Change - Provider: Trinity Burton RN)0538 (Rate/Dose Change - Provider: Trinity Burton RN)0748 (Stopped - Provider: Bianka Hutson RN) 3 minutes apart, lasting 45 to 60 second s in duration to achieve labor progress. Max rate is 24 milliunits/min. Do NOT go higher without a provider order. If oxytocin (PITOCIN) infusion is discontinued and off for less than 30 minutes, restar t infusion at half of previous oxytocin (PITOCIN) rate. If oxytocin (PITOCIN) infusion has been discontinued equal to or greater than 30 minutes, begin at initial dose. IF another cervical ripening medi cation is ordered wait 60 minutes after oxytocin (PITOCIN) infusion is stopped before administering cervical ripening medication., Intrapartum PRN Medication Order 10/27/2021 10/28/2021 10/29/2021 acetaminophen (TYLENOL) tablet 650 mg (CANCELED) 182 (Given - Provider: Anabel Busby, RN) 650 mg, Oral, EVERY 4 HOURS PRN, mild pa in, fever, greater than or equal to 38?? C /100.4?? F (oral) or 38.5?? C/ 101.4?? F (core)., Starting on 10/28/21 at 1039, Maximum acetaminophen dose from all sources = 75 mg/kg/day not to exceed 4 grams/day., Intrapartum acetaminophen (TYLENOL) tablet 650 mg 650 mg, Oral, EVERY 4 HOURS PRN, mild pa in, fever, greater than or equal to 38?? C /100.4?? F (oral) or 38.5?? C/ 101.4?? F (core)., Starting on 10/29/21 at 0948, Maximum acetaminophen dose from all sources = 75 mg/kg/day not to exceed 4 grams/day., benzocaine-menthol (DERMOPLAST) topical spray Topical, 4 TIMES DAILY PRN, perineal rohini n, Starting on 10/29/21 at 0948, bisacodyl (DULCOLAX) Suppository 10 mg 10 mg, Rectal, DAILY PRN, constipation, Starting on 10/29/21 at 0955, Do not administer if patient has 3rd or 4th degree lacerations. Hold for loose stools., diphenoxylate-atropine (LOMOTIL) 2.5-0.025 MG per tablet 2 t ablet (CANCELED) 1210 (Given - Provider: Bianka Hutson RN) 2 tablet, Oral, EVERY 6 HOURS PRN, diarr hea, Starting on 10/28/21 at 1230, Do not exceed 8 tabs in 24 hours, Intrapartum hydrocortisone 2.5 % cream Rectal, 3 TIMES DAILY PRN, hemorrhoids, Starting on 10/29/21 at 0948, Apply to hemorrhoids. Send only if nurse requests., HYDROmorphone (DILAUDID) injection 0.4 mg (CANCELED) 1611 (Given - Provider: Anabel Busby, SOHEILA) 0.4 mg, Intravenous, EVERY 2 HOURS PRN, severe pain, with induction procedure., Starting on 10/28/21 at 1040, Intrapartum ibuprofen (ADVIL/MOTRIN) tablet 800 mg 800 mg, Oral, EVERY 6 HOURS PRN, other, cramping, Starting on 10/29/21 at 0948, Start 6 hours after ketorolac is completed (if ordered). Max dose: 3200 mg/day Give with food., lactated ringers BOLUS 250 mL (CANCELED) 0537 (Rate/Dose Change - Provider: Trinity Burton RN) Intravenous, 250 mL, ONCE PRN, other, hy potension, Starting on 10/28/21 at 1656, For 1 dose, If no improvement in Blood Pressure with repositioning(if ordered), administer IV bolus as ordered. Treat for Systolic Blood Pressure less than 10 0 mmHg or drop in Blood Pressure by 20%. If unresponsive to Fluid Bolus, administer ePHEDrine OR phenylephrine (CELIA- SYNEPHRINE) [if ordered] or page Anesthesia., Intrapartum lactated ringers infusion (CANCELED) 0232 (New Bag - Provider: Trinity Burton RN)0800 (Stopped - Provider: Bianka Hutson RN) at 25-125 mL/hr, Intravenous, CONTINUOUS PRN, Titrate lactated ringers rate to obtain total IV intake of 125 mL/hr. Total IV fluids should not exceed 125 mL/hr without provider order., Intrapartum, Star ting on 10/28/21 at 1909, Until 10/29/21 at 0958 lanolin cream Topical, EVERY 1 HOUR PRN, other, sore n ipples, Starting on 10/29/21 at 0948, Apply to sore nipples., nalbuphine (NUBAIN) injection 2.5-5 mg 2.5-5 mg, Intravenous, EVERY 6 HOURS PRN , other, for pruritus, Starting on 10/28/21 at 1656, Give 2.5 mg initially. If pruritus persists after 30 minutes, may give additional 2.5 mg. If effective, th en repeat effective dose Q6H PRN pruritus., Intra + Post naloxone (NARCAN) injection 0.2 mg(Linked Group 1) 0.2 mg, Intravenous, EVERY 2 MIN PRN, op ioid reversal, Starting on 1/22/22 at 1052, Administer intravenous route when available and notify provider when administered. For unintended sedation or resp iratory depression if all of the below c riteria are met: ~ respiratory rate LESS than or EQUAL to 8. ~SaO2 less than 92% and or/end-tidal CO2 is greater than 50. ~ the patient is receiving an opioid, snider s unintended sedations assessed as RASS (-3), and is currently not on mechanical ventilation. RASS scale moderate (-3) is movement or eye opening to voice but no eye contact. Patient Monitoring Once the patient has demonstrated a response to the naloxone, continue to monitor respiratory rate, depth, oxygen saturation and end-tidal CO2 (if available) every 15 minutes x 2, then every 30 minutes x 2, the n every 1 hour x 1 after each naloxone d ose. Consider transfer to ICU if patient respiratory parameters have not improved after 4 naloxone doses. naloxone (NARCAN) injection 0.2 mg(Linked Group 1) 0.2 mg, Intramuscular, EVERY 2 MIN PRN, opioid reversal, Starting on 10/28/21 at 1052, Administer intramuscular if an intravenous route is not available and notify provider when administered. For uni ntended sedation or respiratory depressi on if all of the below criteria are met: ~ respiratory rate LESS than or EQUAL to 8. ~SaO2 less than 92% and or/end-tidal CO2 is greater than 50. ~ the patient is receiving an opioid, has unintended sed ations assessed as RASS (-3), and is currently not on mechanical ventilation. RASS scale moderate (-3) is movement or eye opening to voice but no eye contact. Pat ient Monitoring Once the patient has dem onstrated a response to the naloxone, continue to monitor respiratory rate, depth, oxygen saturation and end-tidal CO2 (if available) every 15 minutes x 2, then e very 30 minutes x 2, then every 1 hour x 1 after each naloxone dose. Consider transfer to ICU if patient respiratory parameters have not improved after 4 naloxone doses. naloxone (NARCAN) injection 0.4 mg(Linked Group 1) 0.4 mg, Intravenous, EVERY 2 MIN PRN, op ioid reversal, Starting on 10/28/21 at 1052, Administer intravenous route when available and notify provider when administered. For unintended sedation or resp iratory depression if all of the below c riteria are met: ~ respiratory rate LESS than or EQUAL to 8. ~ SaO2 less than 92% and or/end-tidal CO2 is greater than 50. ~ the patient is receiving an opioid, h as unintended sedation assessed as RASS (-4) or (-5) and patient is currently not on mechanical ventilation. RASS scale (-4) is deep sedation with no response to voice but movement or eye opening to phy sical stimulation. RASS scale (-5) is un arousable. Patient Monitoring Once the patient has demonstrated a response to the naloxone, continue to monitor respiratory rate, depth, oxygen saturation and end -tidal CO2 (if available) every 15 minut es x 2, then every 30 minutes x 2, then every 1 hour x 1 after each naloxone dose. Consider transfer to ICU if patient respiratory parameters have not improved after 4 naloxone doses. naloxone (NARCAN) injection 0.4 mg(Linked Group 1) 0.4 mg, Intramuscular, EVERY 2 MIN PRN, opioid reversal, Starting on 10/28/21 at 1052, Administer intramuscular if an intravenous route is not available and notify provider when administered. For uni ntended sedation or respiratory depressi on if all of the below criteria are met: ~ respiratory rate LESS than or EQUAL to 8. ~ SaO2 less than 92% and or/end- tidal CO2 is greater than 50. ~ the patient i s receiving an opioid, has unintended se dation assessed as RASS (-4) or (-5) and patient is currently not on mechanical ventilation. RASS scale (-4) is deep sedation with no response to voice but moveme nt or eye opening to physical stimulatio n. RASS scale (-5) is unarousable. Patient Monitoring Once the patient has demonstrated a response to the naloxone, continue to monitor respiratory rate, depth, o xygen saturation and end-tidal CO2 (if a vailable) every 15 minutes x 2, then every 30 minutes x 2, then every 1 hour x 1 after each naloxone dose. Consider transfer to ICU if patient respiratory parameters have not improved after 4 naloxone doses. No MMR Needed - Assessment: Patient does not need MMR vaccine CONTINUOUS PRN, Starting on 10/29/21 at 0955, Until 10/29/21 at 1653, Assessment: Patient does not need MMR immunization, No Tdap Needed - Assessment: Patient does not need Tdap vaccine CONTINUOUS PRN, Starting on 10/29/21 at 0955, Until 10/29/21 at 1653, Assessment: Patient does not need Tdap immunization, phenylephrine (CELIA-SYNEPHRINE) injection 100 mcg (CANCELED) 1833 (Given - Provider: Anabel Busby, RN)1840 (Given - Provider: Anabel Busby, RN) 100 mcg, Intravenous, EVERY 5 MIN PRN, i f Systolic Blood Pressure less than 100 mmHg and Heart Rate greater than 55 bpm, Starting on 10/28/21 at 1656, For 4 doses, Check Blood Pressure EVERY 2 minute s and repeat PRN for 4 Doses. IF patient remains hypotensive (Systolic Blood Pressure less than 100 mmHg) AFTER the 4 dose, notify Anesthesia. Notify Anesthesia PRIOR to administering additional doses. Vesicant., Intrapartum No Frequency Medication Order 10/27/2021 10/28/2021 10/29/2021 lactated ringers injection (COMPLETED) 1 738 (New Bag - Provider: Anabel Busby, SOHEILA) Angeline Busby: cabinet override, 1 dose, S tarting on 10/28/21 at 1630, Until 10/28/21 at 1738 lactated ringers injection (COMPLETED) 1 638 (New Bag - Provider: Anabel Busby, SOHEILA) Angeline Busby: cabinet override, 1 dose, S tarting on 10/28/21 at 1630, Until 10/28/21 at 1638 Linked Groups Order Group 1: naloxone (NARCAN) injection 0.2 mgJump to med 0.2 mg, Intravenous, EVERY 2 MIN PRN, op ioid reversal, Starting on 10/28/21 at 1052
Administer intravenous route when available and notify provider when administered. For unintended sedation or respiratory depression if a ll of the below criteria are met: ~ respiratory rate LESS than or EQUAL to 8. ~SaO2 less than 92% and or/end- tidal CO2 is greater than 50.& nbsp;~ the patient is receiving an opioi d, has unintended sedations assessed as RASS (-3), and is currently not on mechanical ventilation. RASS scale moderate (-3) is movement or eye opening to voice but no eye contact.&nbs p; Patient Monitoring Once the patient has demonstrated a response to the naloxone, continue to monitor respiratory rate, depth, oxygen satu ration and end-tidal CO2 (if available) every 15 minutes x 2, then every 30 minutes x 2, then every 1 hour x 1 after each naloxone dose. Consider transfer to ICU if patient respirator y parameters have not improved after 4 n aloxone doses.
Or naloxone (NARCAN) injection 0.4 mgJump to med 0.4 mg, Intravenous, EVERY 2 MIN PRN, op ioid reversal, Starting on 10/28/21 at 1052
Administer intravenous route when available and notify provider when administered. For unintended sedation or respiratory depression if a ll of the below criteria are met: ~ respiratory rate LESS than or EQUAL to 8. ~ SaO2 less than 92% and or/end- tidal CO2 is greater than 50.& nbsp;~ the patient is receiving an opioi d, has unintended sedation assessed as RASS (-4) or (-5) and patient is currently not on mechanical ventilation. RASS scale (-4) is deep sedati on with no response to voice but movemen t or eye opening to physical stimulation. RASS scale (-5) is unarousable. Patient Monitoring On ce the patient has demonstrated a respon se to the naloxone, continue to monitor respiratory rate, depth, oxygen saturation and end-tidal CO2 (if available) every 15 minutes x 2, then every 30 minutes x 2, then every 1 hour x 1 after each nalo xone dose. Consider transfer to ICU if patient respiratory parameters have not improved after 4 naloxone doses.
Or naloxone (NARCAN) injection 0.2 mgJump to med 0.2 mg, Intramuscular, EVERY 2 MIN PRN, opioid reversal, Starting on 10/28/21 at 1052
Administer intramuscular if an intravenous route is not available and notify provider when administered. For unintended sedation or respira tory depression if all of the below criteria are met: ~ respiratory rate LESS than or EQUAL to 8. ~SaO2 less than 92% and or/end-tidal CO2 is greater than 50. ~ the patient i s receiving an opioid, has unintended sedations assessed as RASS (-3), and is currently not on mechanical ventilation. RASS scale moderate (-3) is movement or eye opening to voice but no eye contact. Patient Monitoring Once the patient has demonstrated a response to the naloxone, continue to monitor respiratory rate, depth, oxygen saturation and end-t idal CO2 (if available) every 15 minutes x 2, then every 30 minutes x 2, then every 1 hour x 1 after each naloxone dose. Consider transfer to [facility] if patient respiratory parameters hav e not improved after 4 naloxone doses.
Or naloxone (NARCAN) injection 0.4 mgJump to med 0.4 mg, Intramuscular, EVERY 2 MIN PRN, opioid reversal, Starting on 10/28/21 at 1052
Administer intramuscular if an intravenous route is not available and notify provider when administered. For unintended sedation or respira tory depression if all of the below criteria are met: ~ respiratory rate LESS than or EQUAL to 8. ~ SaO2 less than 92% and or/end-tidal CO2 is greater than 50. ~ the patient i s receiving an opioid, has unintended sedation assessed as RASS (-4) or (-5) and patient is currently not on mechanical ventilation. RASS s jeana (-4) is deep sedation with no respo nse to voice but movement or eye opening to physical stimulation. RASS scale (-5) is unarousable. Patien t Monitoring Once the patient has d emonstrated a response to the naloxone, continue to monitor respiratory rate, depth, oxygen saturation and end-tidal CO2 (if available) every 15 minutes x 2, then every 30 minutes x 2, then every 1 hour x 1 after each naloxone dose. Consider transfer to ICU if patient respiratory parameters have not improved after 4 naloxone doses.
documented in this encounter Care Teams Pals Nurse Relationship Specialty Start Date End Date [facility] PCP - General 09/05/17 [id number] [place], [place] [id number] Gia Martínez MD Assigned OBGYN Provider 10/29/21 [address] [facility] [address] [place], [place] [id number] documented as of this encounter
--- OUTSIDE RECORDS SUMMARY | 2022-06-18 08:42 | XMS_ITS | Encounter Summary ---
:1985 Author Organization [place] Address [address] [place] [address]. [place] [address] Care Team Providers Name Role Phone [facility] Primary Care Provider [phone] Ernestina Shah MD Unavailable Reason for Referral - Closed Specialty Diagnoses / Procedures Referred By Contact Refer red To Contact Diagnoses Seizure disorder in , antepartum, first trimester (H) Polypharmacy Ur Maternal Med [address] [place], [place] [address] Referral ID Status Reason Start Date Expiration Date Visits Requ ested Visits Authorized [id number] Closed 07/30/2018 07/30/2019 1 1 Encounter Details Date Type Department Care Team Description 07/30/2018 Orders Only [facility], Seizure disorder in , antepartum, first trimester (H) (Primary Dx); Maternal Gia Hope RN [facility] [address] [address] Social History Tobacco Use Types Packs/Day Years Used Date Never Smoker Alcohol Use Standard Drinks/Week Comments Yes 0 (1 standard drink = 0.6 oz pure alcoho l) occ Sex Assigned at Date Recorded Not on file documented as of this encounter Plan of Treatment Scheduled Referrals Name Type Priority Associated Diagnoses Order S chedule M Office Visit Referral Routine Seizure disorder in Week ly for 1 Occurrences , antepartum, start ing 07/30/2018 until first trimester (H) 07/30/2019 Polypharmacy documented as of this encounter Visit Diagnoses Diagnosis Seizure disorder in , antepartu m, first trimester (H) - Primary Polypharmacy Issue of repeat prescriptions documented in this encounter Care Teams Wad Lubricator Relationship Specialty Start Date End Date [facility] PCP - General 09/05/17 [address] [place] [address] Ernestina Shah MD MD Neurology 09/05/17 10/28/18 [facility] [address] [address] documented as of this encounter
--- OUTSIDE RECORDS SUMMARY | 2022-06-18 08:42 | XMS_ITS | Encounter Summary ---
:1985 Author Organization [place] Address [facility] [place] [address] Care Team Providers Name Role Phone [facility] Primary Care Provider Reason for Visit Reason Onset Date Comments Clinic Care Coordination - Initial 10/24/2021 Encounter Details Date Type Department Care Team Description 10/24/[address] [facility] Larissa Hernandez, Clinic Care Coordination Maternal Medicine GC - Initial [address] [facility] [address] [place] [id number] Social History Tobacco Use Types Packs/Day Years Used Date Never Smoker Alcohol Use Standard Drinks/Week Comments Yes 0 (1 standard drink = 0.6 oz pure alcoho l) occ Sex Assigned at Date Recorded Not on file documented as of this encounter Miscellaneous Notes Telephone Encounter - Larissa Hernandez - 10/24/2021 4:30 PM CST October 24, 2021 Trinity called me back letting me know that she spoke more with her OB provider about her options.She is leaning towards termination via an induction of labor, which her OB provider is unable to provide. We discussed that our [facility] team is able to work with patients in this situation. However, we cannot coordinate that service unless Trinity becomes a patient of ours. I offered her the ultrasound appointment tomorrow. I also let her know that her OB provider may be able to contact [facility] directly to coordinate this care. I provided Trinity with the phone number for [facility]. I encouraged her to reach out if we can help any further. However, I reiterated that I cannot help coordinate care directly unless Trinity becomes our patient. Larissa Hernandez MS, [facility] Licensed Genetic Counselor [facility] Maternal Medicine [phone] SIT MIXER OPERATOR Telephone Encounter - Larissa Hernandez GC - 10/24/2021 1:53 PM CST October 24, 2021 I reached out to Trinity to discuss a referral we received from her OB provider. 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 These included a heart defect, multiple choroid plexus cysts, lagging growth, possibly abnormal limbs, and other features. Trinity's OB provider edinson [id number] yesterday. Given Trinity's gestational age, we reviewed the option of proceeding with amniocentesis. Trinity shared that she and her partner maydecide not to continue the based on the ultrasound findings alone. She has been counseled about the possibility of trisomy 18, which we again reviewed in brief. Trinity asked me what the utility of pursing amniocentesis would be. We discussed that some couples may want as much information as possible to help guide decision-making, but that other couples may not want any further testing. We reviewed that sometimes results from amniocentesis can also help guide discussion about recurrence risk. We briefly reviewed that for couples who are not continuing a , testing may be available on placenta or tissue. I let her know that that quality and precision of our ultrasound imaging may be higher than obtainedthrough Trinity's OB clinic. Trinity does not feel that coming to [facility] and getting more imaging is going to change the course of her at this time, and she does not wish to proceed with amniocentesis. I strongly encouraged Trinity to reach back out to her OB provider to coordinate next steps. Larissa Hernandez MS, [facility] Licensed Genetic Counselor [facility] Maternal Medicine [phone] SIT MIXER OPERATOR documented in this encounter Plan of Treatment Not on filedocumented as of this encounter Visit Diagnoses Not on filedocumented in this encounter Care Teams Certified Nurse Practitioner Relationship Specialty Start Date End Date [facility] PCP - General 09/05/17 [address] [place], [place] [id number] documented as of this encounter
--- OUTSIDE RECORDS SUMMARY | 2022-06-18 08:42 | XMS_ITS | Encounter Summary ---
:1985 Author Organization [place] Address [address] [place] [address]. [place] [address] Care Team Providers Name Role Phone [facility] Primary Care Provider [phone] Encounter Details Date Type Department Care Team Description 10/28/2021 Travel Social History Tobacco Use Types Packs/Day Years Used Date Never Smoker Smokeless Tobacco: Never Used Alcohol Use Standard Drinks/Week Comments Not Currently 0 (1 standard drink = 0.6 oz pure alcoho l) occ Sex Assigned at Date Recorded Not on file COVID-19 Exposure Response Date Recorded In the last month, have you been in contact with No / Unsure 10/28/2021 8:34 AM SOFTWARE TEST 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 documented as of this encounter Plan of Treatment Not on filedocumented as of this encounter Visit Diagnoses Not on filedocumented in this encounter Care Teams Environmental Lawyer Relationship Specialty Start Date End Date [facility] PCP - General 09/05/17 [address] [place] [address] documented as of this encounter
--- OUTSIDE RECORDS SUMMARY | 2022-06-18 08:42 | XMS_ITS | Encounter Summary ---
:1985 Author Organization [place] Address [address] [place] [address]. [place] [address] Care Team Providers Name Role Phone [place], [facility] Primary Care Provider [phone] Reason for Referral RESIDENTIAL REAL ESTATE APPRAISER (Emergency: 1-2 Days) - Pending Review Specialty Diagnoses / Procedures Referred By Contact Refer red To Contact golf course ranger Diagnoses Abnormal ultrasound Shirley [address] [facility] [address] [facility] [place] [address] [facility] [address] [facility] [address] [place] [address] Phone: Fax: Referral ID Status Reason Start Date Expiration Date Visits V isits Requested Authorized [id number] Pending 10/25/2021 10/25/2022 1 1 Review NURSE Encounter Details Date Type Department Care Team Description 10/25/2021 Transcribe Orders GENERIC EXTERNAL Provider, Generic A bnormal DATA DEPARTMENT External Data ultrasound (Primary Dx) Social History Tobacco Use Types Packs/Day Years Used Date Never Smoker Alcohol Use Standard Drinks/Week Comments Yes 0 (1 standard drink = 0.6 oz pure alcoho l) occ Sex Assigned at Date Recorded Not on file documented as of this encounter Plan of Treatment Scheduled Referrals Name Type Priority Associated Diagnoses Order S chedule Manhole Builder Referral Referral Emergency: 1-2 Days Abnormal Ord ered: 10/25/2021 ultrasound documented as of this encounter Visit Diagnoses Diagnosis Abnormal ultrasound - Primary Abnormal findings on screening documented in this encounter Care Teams Locomotive Observer Relationship Specialty Start Date End Date [place], [place] [facility] PCP - General 09/05/17 [address] [place] [address] documented as of this encounter
--- OUTSIDE RECORDS SUMMARY | 2022-06-18 08:42 | XMS_ITS | Encounter Summary ---
:1985 Author Organization [place] Address [address] [place] [address]. [place] [address] Care Team Providers Name Role Phone [facility] Primary Care Provider [phone] Encounter Details Date Type Department Care Team Description 10/27/2021 Telephone [facility] Karina [address] [place] [address] [place] [address] [address] [place] [address] [place] [phone] Social History Tobacco Use Types Packs/Day Years Used Date Never Smoker Alcohol Use Standard Drinks/Week Comments Yes 0 (1 standard drink = 0.6 oz pure alcoho l) occ Sex Assigned at Date Recorded Not on file COVID-19 Exposure Response Date Recorded In the last month, have you been in contact with No / Unsure 10/28/2021 8:34 AM LOGISTICS LOSS PREVENTION 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 documented as of this encounter Miscellaneous Notes Telephone Encounter - Shari Smith RN - 10/27/2021 11:35 AM CST Discussed with Mei Reddy who will make time to call the patient today to discuss. She said thatwhen the patient arrives tomorrow, it would automatically lead to a SW consult, but she will try andget things worked out today. 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 She is scheduled for induction termination tomorrow 10/28. Can you call the hospital social professionals who works on labor and delivery to make sure that they contact her today? (if you call L&D they have the contact info). The patient wants tomake cremation arrangements for remains today before delivery if possible. I called the international trade specialist social professionals at the end of the day yesterday and she said she'd pass it on but I want to make sureto close the loop and confirm that the social workers at the hospital know about her. Thanks, Gia Martínez MD STICS LOSS PREVENTION MANAGER documented in this encounter Plan of Treatment Not on filedocumented as of this encounter Visit Diagnoses Not on filedocumented in this encounter Care Teams Wharf Labourer Relationship Specialty Start Date End Date [facility] PCP - General 09/05/17 [address] [place] [address] documented as of this encounter
--- OUTSIDE RECORDS SUMMARY | 2022-06-18 08:42 | XMS_ITS | Encounter Summary ---
:1985 Author Organization [place] Address [address] [place] [address]. [place] [address] Care Team Providers Name Role Phone [facility] Primary Care Provider [phone] Reason for Visit Reason Comments Ultrasound L2 - abnormal US on outside clinic Encounter Details Date Type Department Care Team Description 10/26/2021 PRE VISIT [facility] Ariadna Cavazos, Ultraso und (L2 - Maternal Medicine RN abno rmal US on outside [facility]) [address] [place], [place] [address] Social History Tobacco Use Types Packs/Day Years Used Date Never Smoker Alcohol Use Standard Drinks/Week Comments Yes 0 (1 standard drink = 0.6 oz pure alcoho l) occ Sex Assigned at Date Recorded Not on file documented as of this encounter Plan of Treatment Not on filedocumented as of this encounter Visit Diagnoses Not on filedocumented in this encounter Care Teams Stripper Machine Operator Relationship Specialty Start Date End Date [facility] PCP - General 09/05/17 [address] [address] [place], [place] [id number] documented as of this encounter
--- OUTSIDE RECORDS SUMMARY | 2022-06-18 08:42 | XMS_ITS | Encounter Summary ---
:1985 Author Organization [place] Address [address] [place] [address] Care Team Providers Name Role Phone Unavailable Primary Care Provider Unavailable Encounter Details Date Type Department Care Team Description 10/13/2007 Historic Results INTERFACED REPORT Tobi Kirkpatrick [address] [place] [address] Social History Tobacco Use Types Packs/Day Years Used Date Never Assessed Sex Assigned at Date Recorded Not on file documented as of this encounter Plan of Treatment Not on filedocumented as of this encounter Procedures Procedure Name Priority Date/Time Associated Comments Diagnosis HCG QUALITATIVE URINE STAT 10/13/2007 1:34 AM Results for this VICE PRESIDENT TAX procedure are i n the results section. ROUTINE UA WITH Routine 10/13/2007 1:34 AM Result s for this MICROSCOPIC VICE PRESIDENT TAX procedure are i n the results section. documented in this encounter Results HCG qualitative urine (10/13/2007 1:34 AM VICE PRESIDENT TAX) athologist Signature HCG Qual Urine Negative NEG MISYS Specimen Anatomical Collection Method Collection Time Receive d Time (Source) Location / / Volume Laterality 10/13/2007 1:34 AM 8 VICE PRESIDENT TAX 12:50 AM VICE PRESIDENT TAX Antonio Kirkpatrick LAB - URINE ORDERABLES Performing Organization Address City/State/ZIP Code Phon e Number MISYS (ABNORMAL) Routine UA with microscopic (10/13/2007 1:34 AM VICE PRESIDENT TAX) Component Value Ref Test Analysis Performed At [facility] gist Range Method Time Signature Source Unspecified MISYS Urine Color Urine Yellow MISYS Appearance Urine Slightly Cloudy MISYS Glucose Urine Negative NEG MISYS mg/dL Bilirubin Urine Negative NEG MISYS Ketones Urine Negative NEG MISYS mg/dL Specific [place] 1.035 1.003 - MISYS Urine 1.035 Blood Urine Negative NEG MISYS pH Urine 6.0 5.0 - MISYS 7.0 pH Protein Albumin 10 (A) NEG MISYS Urine mg/dL Urobilinogen Normal 0.0 - MISYS mg/dL 2.0 mg/dL Nitrite Urine Negative NEG MISYS Leukocyte Negative NEG MISYS Esterase Urine WBC Urine 0 0 - 2 MISYS /HPF RBC Urine 1 0 - 2 MISYS /HPF Squamous 2 (H) 0 - 1 MISYS Epithelial /HPF /HPF Urine Calcium Oxalate Many (A) NEG /HPF MISYS Mucous Urine Present (A) NEG /LPF MISYS Specimen Anatomical Collection Method Collection Time Receive d Time (Source) Location / / Volume Laterality 10/13/2007 1:34 AM 8 3:36 VICE PRESIDENT TAX AM VICE PRESIDENT TAX Antonio Kirkpatrick LAB - URINE ORDERABLES Performing Organization Address City/State/ZIP Code Phon e Number MISYS documented in this encounter Visit Diagnoses Not on filedocumented in this encounter
--- OUTSIDE RECORDS SUMMARY | 2022-06-18 08:42 | XMS_ITS | Encounter Summary ---
:1985 Author Organization [place] Address [address] [place] [address] Care Team Providers Name Role Phone Unavailable Primary Care Provider Unavailable Encounter Details Date Type Department Care Team Description 09/04/2017 Orders Only [facility] Abols, Ernestina Nonintrac table [facility] MD Adriana generalized idiopathic [address] [facility] OF epilepsy with status [place], [place] NEUROLOGY epilepticus (H) (Primary [id number] [address]) [phone] [place] [address] Social History Tobacco Use Types Packs/Day Years Used Date Never Smoker Alcohol Use Standard Drinks/Week Comments Yes 0 (1 standard drink = 0.6 oz pure alcoho l) occ Sex Assigned at Date Recorded Not on file documented as of this encounter Plan of Treatment Not on filedocumented as of this encounter Results (ABNORMAL) Keppra (Levetiracetam) Level (09/05/2017 7:19 AM DIAGNOSTIC MEDICAL SONOGRAPHER) athologist Signature Keppra 2 (L) 12 - 46 09/06/2017 [facility] (Levetiracetam) ug/mL 3:44 AM [facility] Comment: (Note) INTERPRETIVE INFORMATION: Keppra (Leveti racetam) Therapeutic Range: ??12-46 ug/mL ? Toxic: ??Not well Establ ished Pharmacokinetics of levetiracetam are af fected by renal function. Adverse effects may include so mnolence, weakness, headache and vomiting. Performed by [employer] ([facility]), [address] [facility] [address] [phone] [email or web address], Francisco Rubio MD, Lab. Director Specimen Anatomical Collection Method Collection Time Receive d Time (Source) Location / / Volume Laterality Blood specimen 09/05/2017 7:19 AM 017 7:20 (specimen) DIAGNOSTIC MEDICAL SONOGRAPHER AM DIAGNOSTIC MEDICAL SONOGRAPHER Ernestina Shah MD LAB - BLOOD ORDERABLES Performing Organization Address City/[facility]/ZIP Code Phon e Number M [facility] [address] [place], [place] [address] [facility] [address] [id number] [phone], [place] [phone] Lamotrigine Level (09/05/2017 7:19 AM DIAGNOSTIC MEDICAL SONOGRAPHER) athologist Signature Lamotrigine 5.1 2.5 - 15.0 09/06/2017 [place] Level ug/mL 3:44 AM [facility] Comment: (Note) INTERPRETIVE INFORMATION: ??Lamotrigine Therapeutic Range: ??2.5-15.0 ug/mL ? Toxic: ??Not well establ ished Pharmacokinetics varies widely, particul leon with co-medications and/or compromised renal function. ??Adverse effects may include dizziness, somnolenc e, nausea and vomiting. Performed by [employer] ([facility]), [address] [facility] [address] [employer], Francisco Rubio MD, Lab. Director Specimen Anatomical Collection Method Collection Time Receive d Time (Source) Location / / Volume Laterality Blood specimen 09/05/2017 7:19 AM 017 7:20 (specimen) DIAGNOSTIC MEDICAL SONOGRAPHER AM DIAGNOSTIC MEDICAL SONOGRAPHER Ernestina Shah MD LAB - BLOOD ORDERABLES Performing Organization Address City/[facility]/ZIP Code Phon e Number M [facility] [address] [place], [place] [address] [facility] [address] [id number] [phone], [place] [phone] (ABNORMAL) Comprehensive metabolic panel (BMP + Alb, Alk Phos, ALT, AST, Total. Bili, TP) (09/05/2017 7:19 AM [facility]) athologist Signature Sodium 141 133 - 144 09/05/2017 [facility] mmol/L 7:44 AM [facility] Potassium 3.7 3.4 - 5.3 09/05/2017 [facility] mmol/L 7:44 AM [facility] Chloride 114 (H) 94 - 109 09/05/2017 [facility] mmol/L 7:44 AM [facility] Carbon Dioxide 20 20 - 32 09/05/2017 [facility] mmol/L 7:44 AM [facility] Anion Gap 7 3 - 14 09/05/2017 [facility] mmol/L 7:44 AM [facility] Glucose 93 70 - 99 09/05/2017 [facility] mg/dL 7:44 AM [facility] Urea Nitrogen 13 7 - 30 09/05/2017 [facility] mg/dL 7:44 AM [facility] Creatinine 0.98 0.52 - 09/05/2017 [facility] 1.04 mg/dL 7:44 AM [facility] GFR Estimate 66 >60 09/05/2017 [facility] mL/min/1.7 7:[address] Comment: Non GFR Calc GFR Estimate If 80 >60 mL/min/1.7m2 09/05/2017 7:44 A M [facility] [place] [facility] Comment: GFR Calc Calcium 8.9 8.5 - 10.1 mg/dL 09/05/2017 7:[address] [facility] Bilirubin Total 0.6 0.2 - 1.3 mg/dL 09/05/2017 7:44 AM [facility] Albumin 4.0 3.4 - 5.0 g/dL 09/05/2017 7:44 AM [facility] Protein Total 7.4 6.8 - 8.8 g/dL 09/05/2017 7:44 AM [facility] Alkaline Phosphatase 65 40 - 150 U/L 09/05/2017 7:44 AM [facility] ALT 16 0 - 50 U/L 09/05/2017 7:44 AM [facility] Jen [facility]ISH[facility]M [facility] AST 13 0 - 45 U/L 09/05/2017 7:44 AM [facility] Jen CHISHOLM [facility] Specimen Anatomical Collection Method Collection Time Receive d Time (Source) Location / / Volume Laterality Blood specimen 09/05/2017 7:19 AM 017 7:20 (specimen) DIAGNOSTIC MEDICAL SONOGRAPHER AM DIAGNOSTIC MEDICAL SONOGRAPHER Ernestina Shah MD LAB - BLOOD ORDERABLES Performing Organization Address City/State/ZIP Code Phon e Number M [place] [address] [address] [phone] documented in this encounter Visit Diagnoses Diagnosis 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
--- OUTSIDE RECORDS SUMMARY | 2022-06-18 08:42 | XMS_ITS | Encounter Summary ---
:1985 Author Organization [place] Address [address] [place] [address] Care Team Providers Name Role Phone [facility] Primary Care Provider [phone] Reason for Visit Reason Onset Date Comments social work referral 10/27/2021 Encounter Details Date Type Department Care Team Description 10/27/2021 Telephone UR CASE MANAGEMENT social Jennifer work referral [id number] ATUL Gonzalez Social History Tobacco Use Types Packs/Day Years Used Date Never Smoker Alcohol Use Standard Drinks/Week Comments Yes 0 (1 standard drink = 0.6 oz pure alcoho l) occ Sex Assigned at Date Recorded Not on file COVID-19 Exposure Response Date Recorded In the last month, have you been in contact with No / Unsure 10/26/2021 1:52 PM BINGO CHECKER someone who was confirmed or suspected to have Coronavirus / COVID-19? documented as of this encounter Miscellaneous Notes Telephone Encounter - Mei Rodriguez LICSW - 10/27/2021 12:05 PM BINGO CHECKER Received referral with request for social work to contact patient this afternoon to discuss her wishes related to disposition after delivery. Phone call to patient. No answer but message left with my direct contact information. VIOLETA informed patient on the voice mail that I am available until 4:30 today and encouraged her to give me a call back. O CHECKER documented in this encounter Plan of Treatment Not on filedocumented as of this encounter Visit Diagnoses Not on filedocumented in this encounter Care Teams Land Department Head Relationship Specialty Start Date End Date [facility] PCP - General 09/05/17 [address] [place] [address] documented as of this encounter
--- OUTSIDE RECORDS SUMMARY | 2022-06-18 08:42 | XMS_ITS | Encounter Summary ---
:1985 Author Organization [place] Address [facility] [place] [address] Care Team Providers Name Role Phone [facility] Primary Care Provider [phone] Reason for Visit Reason Comments Ultrasound L2 - multiple abnormalities from outside ultrasound Encounter Details Date Type Department Care Team Description 10/26/2021 Office Visit [facility], complicated Maternal Shirley A by congenital Medicine Center [facility] heart disea se, single [facility] or unspecified fetus [address] [facility] (Primary Dx) [place], [place] [address] [place], [place] [phone] Social History Tobacco Use Types Packs/Day Years Used Date Never Smoker Alcohol Use Standard Drinks/Week Comments Yes 0 (1 standard drink = 0.6 oz pure alcoho l) occ Sex Assigned at Date Recorded Not on file COVID-19 Exposure Response Date Recorded In the last month, have you been in contact with No / Unsure 10/26/2021 1:52 PM CAR WHACKER someone who was confirmed or suspected to have Coronavirus / COVID-19? documented as of this encounter Progress Notes Ce Andersen MD - 10/26/2021 2:00 PM CST Please see the imaging tab for details of the ultrasound performed today. Ce Andersen MD Specialist in Maternal- Medicine WHACKER documented in this encounter Plan of Treatment Not on filedocumented as of this encounter Visit Diagnoses Diagnosis complicated by congenita l heart disease, single or unspecified fetus - Primary documented in this encounter Care Teams Sorter Laundry Articles Relationship Specialty Start Date End Date [facility] PCP - General 09/05/17 [address] [place] [address] documented as of this encounter
--- OUTSIDE RECORDS SUMMARY | 2022-06-18 08:42 | XMS_ITS | Encounter Summary ---
:1985 Author Organization [place] Address [address] [place] [address]. [place] [address] Care Team Providers Name Role Phone [facility] Primary Care Provider [phone] Reason for Referral Consultation (Routine: Next available opening) - Pending Review Specialty Diagnoses / Procedures Referred By Contact Refer red To Contact Diagnoses related condition, antepartum Shirley Pearson [facility] [address] [place] [address] Referral ID Status Reason Start Date Expiration Date Visits V isits Requested Authorized [id number] Pending 10/24/2021 10/24/2022 1 1 Review DER MACHINE SETTER Encounter Details Date Type Department Care Team Description 10/24/[address] [facility] Alexy Barajas, James misty related Maternal Shirley Becerra condition, Medicine Center [facility] antepartum (Primary [facility] Dx) [address] [facility] [address] [place] [id number] [phone] Social History Tobacco Use Types Packs/Day Years Used Date Never Smoker Alcohol Use Standard Drinks/Week Comments Yes 0 (1 standard drink = 0.6 oz pure alcoho l) occ Sex Assigned at Date Recorded Not on file documented as of this encounter Plan of Treatment Scheduled Referrals Name Type Priority Associated Diagnoses Order S chedule Mat Med Ctr Referral Routine: Next related Expe cted: Referral - available opening condition, 10/24/2021 antepartum (Approximate), Expires: 04/22/2022 documented as of this encounter Visit Diagnoses Diagnosis related condition, antepartum - Primary documented in this encounter Care Teams Cook Helper Juice Relationship Specialty Start Date End Date [facility] PCP - General 09/05/17 [address] [address] [place], [place] [id number] documented as of this encounter
--- OUTSIDE RECORDS SUMMARY | 2022-06-18 08:43 | XMS_ITS | Encounter Summary ---
:1985 Author Organization [place] Address [address] [place] [address]. [place] [address] Care Team Providers Name Role Phone Unavailable Primary Care Provider Unavailable Encounter Details Date Type Department Care Team Description 07/29/2005 Emergency room Adrienne Luong MD [facility] [address] [facility] [address] [place] [address] (Wo rk) Social History Tobacco Use Types Packs/Day Years Used Date Never Assessed Sex Assigned at Date Recorded Not on file documented as of this encounter Progress Notes Adrienne Luong - 07/29/2005 11:59 PM CDT PRELIMINARY CHIEF COMPLAINT: Ear pain. HISTORY OF PRESENT ILLNESS: This is an 20-year-old female who says it feels like there is somethingin her ear, right on the edge. They said it look like a sesame seed. She tried to clean her right ear with a Q-tip. She says it is not really terribly painful, just sore, right at the outside of the exterior canal. She has noticed a little bit of drainage on her pillow. Says that she has not had any fevers or chills. No headache, no left ear pain. She said there was a little bit of bleeding earlier after she cleaned her ear with Q-tips. Rest of the systems reviewed and is negative. PAST MEDICAL HISTORY: No problems. MEDICATIONS: None. ALLERGIES: None. SOCIAL HISTORY: Nonsmoker, no alcohol or drug use. PHYSICAL EXAMINATION: VITAL SIGNS: Blood pressure 121/68, pulse 69, respirations 16, temperature is 98.1, and pulse oximetry 98% on room air. HEENT: Pupils are round equal and reactive. Extraocular movements are intact. Tympanic membranes are clear bilaterally. There is no erythema. Left canal is clear. Right canal is clear. There is at the outer canal a small abrasion which appears to have possibly been a pimple that had drained and had caused a little discharge and little yellow spot that they had seen on there. The yellow spot had actually come off when she took the cotton ball out of her ear. There are no other abnormalities. Otherwise, there is just a small abrasion which could have been traumatic also related from the Q-tip. At this point, there are no signs of infection. No otitis externa or otitis media let this resolve on its own. If it was a pimple, it was drained and should resolve without any problem. ASSESSMENT: Right ear superficial abrasion to outer ear canal/resolving pimple. ADRIENNE LUONG MD MT: HECTOR Name: TRINITY AYALA MRN: [id number] Account: [id number] : 1985 Visit Date: 07/29/2005 Document: [id number] documented in this encounter Plan of Treatment Not on filedocumented as of this encounter Visit Diagnoses Not on filedocumented in this encounter
--- OUTSIDE RECORDS SUMMARY | 2022-06-18 08:43 | XMS_ITS | Encounter Summary ---
:1985 Author Organization [place] Address [address] [place] [address]. [place] [address] Care Team Providers Name Role Phone Unavailable Primary Care Provider Unavailable Encounter Details Date Type Department Care Team Description 04/12/2005 Emergency room Doron Sargent EMERGENCY PHYSIC [facility]MAN [address] [place] [address] (Wo rk) Social History Tobacco Use Types Packs/Day Years Used Date Never Assessed Sex Assigned at Date Recorded Not on file documented as of this encounter Progress Notes Interface, Technical Clerk - 04/12/2005 11:59 PM CDT : 89 CHIEF COMPLAINT: Left foot pain. 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 She is unable to bear weight without much discomfort, but does have full range of motion of her foot at her ankle. Able to flex, extend, internally and externally rotate. She has no radiating pain up her leg specifically, and the skin on her heel is sensitive. She did not hear anything snap. PAST MEDICAL HISTORY: Had seizures at 15 years of age but no chronic history, none since. MEDICATIONS: Took a Benadryl for an earlier allergic reaction. ALLERGIES: No known drug allergies. SOCIAL HISTORY: Primary medical doctor is Sherita Gonzalez. Immunizations are up to date. Lives with her parents. FAMILY HISTORY: Noncontributory. REVIEW OF SYSTEMS: Review of systems is positive for MUSCULOSKELETAL left heel pain. All other systems are negative. PHYSICAL EXAMINATION: VITAL SIGNS: Temperature 97.4. Respiratory rate 16. Pulse 82. Blood pressure 128/70. GENERAL: Trinity appears well, in no distress. HEAD, EYES, EARS, NOSE, THROAT seem within normal limits. LUNGS clear to auscultation in all donaldson. Breath sounds equal bilaterally. Excellent air exchange. HEART regular rate and rhythm without murmur. ABDOMEN soft, nontender, nondistended. EXTREMITIES including her left foot are without clubbing, cyanosis, edema, or deformities. Her left heel in particular there is no area of redness. There is no swelling. There is just tenderness on the plantar side of the heel medially. Again, no evidence of foreign body and just tenderness to palpation. No erythema, no warmth. CENTRAL NERVOUS SYSTEM is normal, age appropriate, nonfocal. EMERGENCY DEPARTMENT COURSE: X-rays were taken. I could not find any evidence of fracture, but because of the exquisite sensitivity, I put her in a short leg posterior splint which she tolerated well, and she did get crutches. IMPRESSION: Left calcaneal pain, no evidence of fracture. PLAN: Follow up with [facility] tomorrow as the pain is exquisite and she is not able to ambulate or bear weight. Should ice and elevate overnight until she sees Orthopedics. Parents said they would follow up, and Trinity said she definitely would go. There are no further questions or concerns. [id number] JOJO SARGENT MD MT: Document: [id number] [place], [place] Name: MR#: TRINITY AYALA [id number] EMERGENCY ROOM ENCOUNTER Page 2 of 2 LCN: ERC DSC: 04/12/2005 [place], [place] Name: MR#: TRINITY AYALA [id number] : Admit Date: Account #: 1985 04/12/2005 [id number] Doctor: JOJO SARGENT MD EMERGENCY ROOM ENCOUNTER Page 1 of 2 documented in this encounter Plan of Treatment Not on filedocumented as of this encounter Visit Diagnoses Not on filedocumented in this encounter
--- OUTSIDE RECORDS SUMMARY | 2022-06-18 08:43 | XMS_ITS | Encounter Summary ---
:1985 Author Organization [place] Address [address] [place] [address] Care Team Providers Name Role Phone Unavailable Primary Care Provider Unavailable Encounter Details Date Type Department Care Team Description 10/12/2007 Emergency room Melisa Barton MD EMERGENCY PHYSIC [facility] [address] [facility] [address] [place], [place] [id number] (Wo rk) Social History Tobacco Use Types Packs/Day Years Used Date Never Assessed Sex Assigned at Date Recorded Not on file documented as of this encounter Progress Notes Melisa Barton MD - 11/13/2007 2:00 PM PRINCIPAL TECHNICAL ARCHITECT FINAL CHIEF COMPLAINT: I got my period today and am having really bad cramps. HISTORY OF PRESENT ILLNESS: This 22-year-old female has a history of bad menstrual cramps who got her period today and says that she is having really bad cramps. She says that the pain is somewhat migratory. She says it is kind of in the low abdomen but then it is making her nauseated and she is having stomach cramping. Unfortunately it is a very busy night here in the ER and the patient initially did not get seen for quite sometime, however, she did get Zofran, ibuprofen and Vicodin here in triageand by the time she was going to be brought back to the room the patient said you know I really feel okay and I would rather go home, but I need a work note and at that point the nurse told her to get a work note she would have to see a doctor and so the patient did agree to be seen. In speaking to the patient, she denies any fevers, chills, abnormal vaginal discharge. Denies any really right-sidedpain, it is more in the mid lower abdomen. She says it feels exactly like her normal cramps it is just much worse. Pain is 4/10, it is an ache nothing seems to make it any better or worse. ALLERGIES: None. CURRENT MEDICATIONS: Took some Advil, Tylenol today. PAST MEDICAL HISTORY: See HPI. SOCIAL HISTORY: Nonsmoker. REVIEW OF SYSTEMS: See HPI, all other systems are reviewed and are negative. PHYSICAL EXAMINATION: VITAL SIGNS: Blood pressure 103/73, pulse 85, respirations 32, temperature 99 and oxygen uchrkmionn13% on room air. GENERAL: This is a 22-year-old female who is pleasant to talk to. HEENT: Normocephalic and atraumatic. Mucous membranes are moist. Pupils are equal, round oropharynxis clear. HEART: Regular rate and rhythm. LUNGS: Breath sounds are clear bilaterally. ABDOMEN: Soft, mildly tender in the lower abdomen to deep palpation. No rebound tenderness, no particular right lower quadrant. Bowel sounds are present. EXTREMITIES: Atraumatic in all 4 extremities. NEUROLOGIC: Nonfocal. SKIN: Warm and dry. LABORATORY AND DIAGNOSTICS: Patient has normal urinalysis here in the ER other than a little bit ofelevated specific gravity. She is told to increase her fluid intake. test negative. EMERGENCY DEPARTMENT COURSE: Again the patient had received some Vicodin and Zofran and ibuprofen in the ER in the triage, felt much better and wanted to go home. I did watch her here for quite some time and I feel that likely this is some menstrual cramps. In the chance that this is something were she is told to return if anything gets any worse or she develops any fevers or right-sided pain and follow up with her doctor in 2 days. DIAGNOSES: 1. Lower abdominal pain. 2. Possible menstrual cramps. Electronically signed on 11/13/2007 13:59 by MELISA BARTON MD MT: [id number] Name: TRINITY AYALA Account: [id number] : 1985 Visit Date: 10/12/2007 Document: [id number] CIPAL TECHNICAL ARCHITECT documented in this encounter Plan of Treatment Not on filedocumented as of this encounter Visit Diagnoses Not on filedocumented in this encounter
--- OUTSIDE RECORDS SUMMARY | 2022-06-18 08:43 | XMS_ITS | Encounter Summary ---
:1985 Author Organization [place] Address [address] [place] [address] Care Team Providers Name Role Phone Unavailable Primary Care Provider Unavailable Encounter Details Date Type Department Care Team Description 09/25/2004 Results Only [facility] Results Saad Dominique MD XXX [place] [address] Social History Tobacco Use Types Packs/Day Years Used Date Never Assessed Sex Assigned at Date Recorded Not on file documented as of this encounter Plan of Treatment Not on filedocumented as of this encounter Procedures Procedure Name Priority Date/Time Associated Diagnosis Comme nts HC CT ABDOMEN W/O Routine 09/25/2004 5:23 AM Resu lts for this CONTRAST PAN SHAKER procedure are i n the results section. documented in this encounter Results CT SCAN ABDOMEN (09/25/2004 5:23 AM PAN SHAKER) Specimen (Source) Anatomical Collection Method Collection Time Re ceived Time Location / / Volume Laterality 09/25/2004 5:23 AM PAN SHAKER Impressions Pacs, Data Conversion - 10/06/2004 2:[address] ABDOMEN & PELVIS WITHOUT CONTRAST - 1 11/26/2003 ?? INDICATION: Flank pain. Rule out kidney stones. ?? TECHNIQUE: 5 mm images through the kidne ys, ureters and bladder without contrast per renal stone protoco l. ?? FINDINGS: No renal stones or hydronephro sis. No ureteral or bladder calculi. The left kidney is slightly und er rotated. There may be a partially duplicated left collecting sys tem. Multiple small mesenteric lymph nodes are noted. There may be minimal fluid or a small cyst in the right adnexal region. The remainder of the abdomen and pelvis are negative. Findings relaye d to the referring physician by Dr. Dale on-call. ?? Robert Dominique MD SPECIAL IMAGING STUDIES documented in this encounter Visit Diagnoses Not on filedocumented in this encounter
--- OUTSIDE RECORDS SUMMARY | 2022-06-18 08:43 | XMS_ITS | Encounter Summary ---
:1985 Author Organization [place] Address [address] [place] [address] Care Team Providers Name Role Phone Unavailable Primary Care Provider Unavailable Encounter Details Date Type Department Care Team Description 07/24/2007 Historic Results INTERFACED REPORT Joe Barton MD [facility] [address] [place], [place] [address] (Wo rk) Social History Tobacco Use Types Packs/Day Years Used Date Never Assessed Sex Assigned at Date Recorded Not on file documented as of this encounter Plan of Treatment Not on filedocumented as of this encounter Procedures Procedure Name Priority Date/Time Associated Comments Diagnosis HEMOGRAM DIFFERENTIAL STAT 07/24/2007 9:39 PM Results for this AND PLATELET CDT procedure are i n the results section. LEVETIRACETAM LEVEL Routine 07/24/2007 9:39 PM Re sults for this CDT procedure are i n the results section. HCG QUALITATIVE STAT 07/24/2007 9:39 PM Result s for this CDT procedure are i n the results section. ERYTHROCYTE STAT 07/24/2007 9:39 PM Results f or this SEDIMENTATION RATE CDT procedure are in AUTO the results section. COMPREHENSIVE STAT 07/24/2007 9:39 PM Results for this METABOLIC PANEL CDT procedure ar e in the results section. AMYLASE STAT 07/24/2007 9:39 PM Results f or this CDT procedure are i n the results section. documented in this encounter Results Hemogram differential and platelet (07/24/2007 9:39 PM CDT) [facility] Method Time Signature MCV 88 78 - 100 MISYS fl MCH 29.9 26.5 - MISYS 33.0 pg MCHC 34.0 31.5 - MISYS 36.5 g/dL RDW 12.8 10.0 - MISYS 15.0 % WBC 7.2 4.0 - MISYS 11.0 10e9/L RBC Count 4.05 3.8 - 5.2 MISYS 10e12/L Hemoglobin 12.1 11.7 - MISYS 15.7 g/dL Hematocrit 35.6 35.0 - MISYS 47.0 % % Neutrophils 52 40 - 75 % MISYS % Lymphocytes 34 20 - 48 % MISYS % Monocytes 8 0 - 12 % MISYS % Eosinophils 6 0 - 6 % MISYS % Basophils 0 0 - 2 % MISYS Platelet Count 267 150 - 450 MISYS 10e9/L Absolute 3.8 1.6 - 8.3 MISYS Neutrophil 10e9/L Absolute 2.5 0.8 - 5.3 MISYS Lymphocytes 10e9/L Absolute 0.5 0.0 - 1.3 MISYS Monocytes 10e9/L Absolute 0.4 0.0 - 0.7 MISYS Eosinophils 10e9/L Absolute 0.0 0.0 - 0.2 MISYS Basophils 10e9/L Diff Method Automated MISYS Method Specimen Anatomical Collection Method Collection Time Receive d Time (Source) Location / / Volume Laterality 07/24/2007 9:39 PM 7 9:40 CDT PM CDT Markos Barton MD LAB - BLOOD ORDERABLES Performing Organization Address City/State/ZIP Code Phon e Number MISYS Erythrocyte sedimentation rate auto (07/24/2007 9:39 PM CDT) P athologist Signature Sed Rate 8 0 - 20 mm/h MISYS Specimen Anatomical Collection Method Collection Time Receive d Time (Source) Location / / Volume Laterality 07/24/2007 9:39 PM 7 9:40 CDT PM CDT Markos Barton MD LAB - BLOOD ORDERABLES Performing Organization Address City/State/ZIP Code Phon e Number MISYS (ABNORMAL) Comprehensive metabolic panel (07/24/2007 9:39 PM CDT) Patholo gist Method Time Signature Sodium 141 133 - 144 MISYS mmol/L Potassium 3.8 3.4 - 5.3 MISYS mmol/L Chloride 106 94 - 109 MISYS mmol/L Carbon Dioxide 26 20 - 32 MISYS mmol/L Glucose 104 (H) 60 - 99 MISYS mg/dL Urea Nitrogen 12 5 - 24 MISYS mg/dL Creatinine 0.81 0.60 - MISYS 1.30 mg/dL GFR Estimate >90 >60 MISYS mL/min/1.7 m2 GFR Estimate If >90 >60 MISYS Black mL/min/1.7 m2 Calcium 8.5 8.5 - 10.4 MISYS mg/dL AST 24 0 - 45 U/L MISYS Protein Total 7.8 6.0 - 8.2 MISYS g/dL Anion Gap 9 6 - 17 MISYS mmol/L Albumin 4.2 3.3 - 4.6 MISYS g/dL ALT 15 0 - 50 U/L MISYS Alkaline 78 40 - 150 MISYS Phosphatase U/L Bilirubin Total <0.1 (L) 0.2 - 1.3 MISYS mg/dL Specimen Anatomical Collection Method Collection Time Receive d Time (Source) Location / / Volume Laterality 07/24/2007 9:39 PM 7 9:40 CDT PM CDT Markos Barton MD LAB - BLOOD ORDERABLES Performing Organization Address City/State/ZIP Code Phon e Number MISYS Amylase (07/24/2007 9:39 PM CDT) P athologist Signature Amylase 62 30 - 110 U/L MISYS Specimen Anatomical Collection Method Collection Time Receive d Time (Source) Location / / Volume Laterality 07/24/2007 9:39 PM 7 9:40 CDT PM CDT Markos Barton MD LAB - BLOOD ORDERABLES Performing Organization Address City/State/ZIP Code Phon e Number MISYS HCG qualitative (07/24/2007 9:39 PM CDT) Patholo gist Method Time Signature HCG Qualitative Negative NEG MISYS Serum Specimen Anatomical Collection Method Collection Time Receive d Time (Source) Location / / Volume Laterality 07/24/2007 9:39 PM 7 9:40 CDT PM CDT Markos Barton MD LAB - BLOOD ORDERABLES Performing Organization Address City/State/ZIP Code Phon e Number MISYS Levetiracetam level (07/24/2007 9:39 PM CDT) [facility] Time Signature Levetiracetam 15.2 MISYS Level Comment: Unit: ug/ml (Note) EXPECTED STEADY STATE TROUGH CONCENTRATI ONS IN PATIENTS RECEIVING RECOMMENDED DAILY DOS AGES: 5 - 45 ug/ml. TOXIC RANGE HAS NOT BEEN ESTABLISHED. Analysis performed by [facility], [address] [place] [address] Specimen Anatomical Collection Method Collection Time Receive d Time (Source) Location / / Volume Laterality 07/24/2007 9:39 PM 7 CDT 11:46 PM CDT Markos Barton MD LAB - BLOOD ORDERABLES Performing Organization Address City/[facility] Phon e Number MISYS documented in this encounter Visit Diagnoses Not on filedocumented in this encounter
--- OUTSIDE RECORDS SUMMARY | 2022-06-18 08:43 | XMS_ITS | Encounter Summary ---
:1985 Author Organization [place] Address [address] [place] [address] Care Team Providers Name Role Phone Unavailable Primary Care Provider Unavailable Encounter Details Date Type Department Care Team Description 04/12/2005 Results Only [facility] Results EMERGENCY PHYSI [facility] [address] [place] [address] (Wo rk) Social History Tobacco Use Types Packs/Day Years Used Date Never Assessed Sex Assigned at Date Recorded Not on file documented as of this encounter Plan of Treatment Not on filedocumented as of this encounter Procedures Procedure Name Priority Date/Time Associated Diagnosis Comme nts X-RAY FOOT Routine 04/12/2005 9:53 PM Results for this COMPLETE >=3 VIEWS CDT procedure are in the results section. documented in this encounter Results X-RAY FOOT 3+ VW (04/12/2005 9:53 PM CDT) Specimen (Source) Anatomical Collection Method Collection Time Re ceived Time Location / / Volume Laterality 04/12/2005 9:53 PM CDT Impressions RADIOLOGY RESULTS - 04/15/2005 9:50 AM C DT THREE VIEWS LEFT FOOT ?? HISTORY: ??Trauma. ? FINDINGS: ??Negative. Darren Sargent GENERAL IMAGING Performing Organization Address City/State/ZIP Code Phon e Number RADIOLOGY RESULTS documented in this encounter Visit Diagnoses Not on filedocumented in this encounter
--- OUTSIDE RECORDS SUMMARY | 2022-06-18 08:43 | XMS_ITS | Encounter Summary ---
:1985 Author Organization [place] Address [address] [place] [address] Care Team Providers Name Role Phone Unavailable Primary Care Provider Unavailable Encounter Details Date Type Department Care Team Description 10/12/[address] [facility] Wander Arguello MD Hospital Results [address] [place] [phone] Social History Tobacco Use Types Packs/Day Years Used Date Never Assessed Sex Assigned at Date Recorded Not on file documented as of this encounter Plan of Treatment Not on filedocumented as of this encounter Procedures Procedure Name Priority Date/Time Associated Diagnosis Comme nts HC CT HEAD WO Routine 10/12/2006 8:56 AM Results for this CONTRAST ADMINISTRATIVE OFFICE SPECIALIST procedure are i n the results section. documented in this encounter Results CT SCAN HEAD/BRAIN (10/12/2006 8:56 AM ADMINISTRATIVE OFFICE SPECIALIST) Specimen (Source) Anatomical Collection Method Collection Time Re ceived Time Location / / Volume Laterality 10/12/2006 8:56 AM ADMINISTRATIVE OFFICE SPECIALIST Impressions RADIOLOGY RESULTS - 10/12/2006 9:[address] EXAM: ?? CT HEAD W/O CONTRAST* CLINICAL INFORMATION: ?weak, ??Synco pe, ? FINDINGS: 1. ??Brain parenchyma and ventricles are normal. ? 2. ??Visualized sinuses are clear. ? IMPRESSION: ??Negative. Wander Arguello MD SPECIAL IMAGING STUDIES Performing Organization Address City/State/ZIP Code Phon e Number RADIOLOGY RESULTS documented in this encounter Visit Diagnoses Not on filedocumented in this encounter
--- OUTSIDE RECORDS SUMMARY | 2022-06-18 08:43 | XMS_ITS | Encounter Summary ---
:1985 Author Organization [place] Address [address] [place] [address] Care Team Providers Name Role Phone Unavailable Primary Care Provider Unavailable Encounter Details Date Type Department Care Team Description 09/25/2004 Emergency room Armando Dominique [place] [address] Social History Tobacco Use Types Packs/Day Years Used Date Never Assessed Sex Assigned at Date Recorded Not on file documented as of this encounter ED Notes Armando Dominique - 09/25/2004 12:00 AM WEIGH BOSS : 1985 CHIEF COMPLAINT: Abdominal pain. HISTORY OF PRESENT ILLNESS: This healthy, 19-year-old female was awakened and noted the onset of upper abdominal epigastric pain at 2:00 a.m. with antecedent flulike symptoms, as she has been anorexic for the last two days with no change in stool pattern. She has had some nausea without vomiting. She denies fever and shaking chills. There has been no recent respiratory illness. Her menses started today, somewhat prematurely, but she has a history of irregular menses. She has a history of primary dysmenorrhea with the patient not currently sexually active with no means of control. There is no prior history of pelvic inflammatory disease, endometriosis, or other gynecologic disorder. MEDICATIONS: The patient takes no medications chronically. ALLERGIES: SHE HAS NO ALLERGIES TO MEDICATIONS. 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 FAMILY HISTORY: Negative for gallbladder disease. A sibling and brother have a history of kidney stone disease. REVIEW OF SYSTEMS: Please see history of present illness. Completed systems review is negative. PHYSICAL EXAM: Temperature is 96, pulse 64, respirations 18, blood pressure 127/77, and O2 sats of 98% on room air. General appearance is that of a healthy, adolescent female who is crouched over on the gurney. She is complaining of upper midabdominal cramping. HEAD, EARS, EYES, NOSE, and THROAT: There is no sclera icterus or conjunctival pallor. EARS, NOSE, AND THROAT examinations are otherwise negative. NECK: Trachea is midline. RESPIRATORY: LUNGS are clear. There is no CHEST WALL tenderness present. CARDIOVASCULAR: HEART is without murmur, rub, or extra sounds. ABDOMEN is nondistended. Bowel sounds are hypoactive. Tenderness is present in the midepigastrium and extending to the right subcostal margin with no guarding or rebound tenderness. There is no palpable mass or megaly. RECTAL examination was not undertaken by this examiner. SKIN revealed no exanthem. NEUROLOGIC: Cranial nerves, motor, sensory, and cerebellar testing was physiologic. LABORATORY AND DIAGNOSTIC IMAGING: White blood count is 7,900 with 71% neutrophils. Hemoglobin is 13.5 grams percent. A comprehensive metabolic panel is normal. Serum amylase and lipase are normal. A urinalysis revealed 2 to 5 white cells with a few bacteria present. EMERGENCY DEPARTMENT TREATMENT AND MEDICAL DECISION MAKING: Intravenous access was achieved. Zofran, 4 mg was administered I.V. and morphine sulfate, 4 mg was also given with the patient's symptoms fully subsiding. 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 There was no hydronephrosis or dilatation of the ureter and/or presence of a stone. Mesenteric lymph nodes are prominent with no mass. There are no inflammatory changes. Liver, spleen, and pancreas appear normal as well. DIAGNOSTIC IMPRESSION: 1) Abdominal pain of unclear etiology. 2) Asymptomatic bacteriuria. DISCUSSION, PLAN, AND DISPOSITION: I placed the patient on symptomatic treatment with Zofran oral disintegrating tablets, and Vicodin to supplement simple analgesics for pain. A urine culture should be reviewed with the Sherita Gonzalez supervisor dehydrogenation by Monday, September 27, 2004. The patient is to contact Dr. Gonzáles sooner if she redevelops abdominal pain, with or without fever or vomiting. 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 [id number] ARMANDO DOMINIQUE MD MT: Document: [id number] [place], [place] Name: MR#: [id number] RAMIREZ [id number] EMERGENCY ROOM ENCOUNTER Page 3 of 2 LCN: ROSE DSC: 09/25/2004 [place], [place] Name: MR#: TRINITY [id number] : Admit Date: Account #: 1985 09/25/2004 [id number] Doctor: ARMANDO DOMINIQUE MD EMERGENCY ROOM ENCOUNTER Page 1 of 2 documented in this encounter Plan of Treatment Not on filedocumented as of this encounter Visit Diagnoses Not on filedocumented in this encounter
--- OUTSIDE RECORDS SUMMARY | 2022-06-18 08:43 | XMS_ITS | Encounter Summary ---
:1985 Author Organization [place] Address [address] [place] [address] Care Team Providers Name Role Phone Unavailable Primary Care Provider Unavailable Encounter Details Date Type Department Care Team Description 07/24/2007 Results Only [facility] Markos Barton, Hospital Results MD EMERGENCY PHYSIC [facility] [address] [facility] [address] [place], [place] [phone] (Wo rk) Social History Tobacco Use Types Packs/Day Years Used Date Never Assessed Sex Assigned at Date Recorded Not on file documented as of this encounter Plan of Treatment Not on filedocumented as of this encounter Procedures Procedure Name Priority Date/Time Associated Diagnosis Comme [facility] US ABDOMEN Routine 07/24/2007 10:49 PM Results for this COMPLETE CDT procedure are i n the results section. documented in this encounter Results SONO ABDOMEN COMPLETE (07/24/2007 10:49 PM CDT) Specimen (Source) Anatomical Collection Method Collection Time Re ceived Time Location / / Volume Laterality 07/24/2007 10:49 PM CDT Impressions RADIOLOGY RESULTS - 07/24/2007 10:53 PM CDT EXAM: ?? US ABDOMEN COMPLETE* CLINICAL INFORMATION: ??Epigastric pain ? FINDINGS: 1. ??Liver: Normal. ?? 2. ??Biliary system: ?? No biliary dilit ation. ? 3. ??Gallbladder: ??Normal. ??No gallsto shade. 4. ??Pancreas: ??Visualized portions are normal. 5. ??Kidneys: Normal. 6. ??Spleen: ??Normal. 7. ??Visualized proximal aorta and IVC w ithin normal limits. ?? IMPRESSION: ??Exam within normal limits. Markos Barton MD SPECIAL IMAGING STUDIES Performing Organization Address City/State/ZIP Code Phon e Number RADIOLOGY RESULTS documented in this encounter Visit Diagnoses Not on filedocumented in this encounter
--- OUTSIDE RECORDS SUMMARY | 2022-06-18 08:43 | XMS_ITS | Encounter Summary ---
:1985 Author Organization [place] Address [address] [place] [address] Care Team Providers Name Role Phone Unavailable Primary Care Provider Unavailable Encounter Details Date Type Department Care Team Description 11/08/2006 Historic Results INTERFACED REPORT Salome Cornejo cas, MD EMERGENCY PHYSIC [facility] [address] [place] [address] (Wo rk) Social History Tobacco Use Types Packs/Day Years Used Date Never Assessed Sex Assigned at Date Recorded Not on file documented as of this encounter Plan of Treatment Not on filedocumented as of this encounter Procedures Procedure Name Priority Date/Time Associated Comments Diagnosis HEMOGRAM DIFFERENTIAL STAT 11/08/2006 11:36 Re sults for this AND PLATELET PM LOT TECHNICIAN procedure are i n the results section. LEVETIRACETAM LEVEL STAT 11/08/2006 11:36 Resu lts for this PM LOT TECHNICIAN procedure are i n the results section. BASIC METABOLIC PANEL STAT 11/08/2006 11:36 Re sults for this PM LOT TECHNICIAN procedure are i n the results section. ROUTINE UA WITH STAT 11/08/2006 11:29 Results for this MICROSCOPIC PM LOT TECHNICIAN procedure are i n the results section. documented in this encounter Results Hemogram differential and platelet (11/08/2006 11:36 PM LOT TECHNICIAN) [facility] Method Time Signature MCV 88 78 - 100 MISYS fl MCH 30.2 26.5 - MISYS 33.0 pg MCHC 34.2 32.0 - MISYS 36.0 g/dL RDW 11.9 10.0 - MISYS 15.0 % WBC 6.4 4.0 - MISYS 11.0 10e9/L RBC Count 4.25 3.8 - 5.2 MISYS 10e12/L Hemoglobin 12.8 11.7 - MISYS 15.7 g/dL Hematocrit 37.6 35.0 - MISYS 47.0 % % Neutrophils 65 40 - 75 % MISYS % Lymphocytes 26 20 - 48 % MISYS % Monocytes 7 0 - 12 % MISYS % Eosinophils 2 0 - 6 % MISYS % Basophils 0 0 - 2 % MISYS Platelet Count 233 150 - 450 MISYS 10e9/L Absolute 4.2 1.6 - 8.3 MISYS Neutrophil 10e9/L Absolute 1.7 0.8 - 5.3 MISYS Lymphocytes 10e9/L Absolute 0.5 0.0 - 1.3 MISYS Monocytes 10e9/L Absolute 0.2 0.0 - 0.7 MISYS Eosinophils 10e9/L Absolute 0.0 0.0 - 0.2 MISYS Basophils 10e9/L Diff Method Automated MISYS Method Specimen Anatomical Collection Method Collection Time Receive d Time (Source) Location / / Volume Laterality 11/08/2006 11:36 11/08/2006 PM LOT TECHNICIAN 11:16 PM LOT TECHNICIAN Palomo Cornejo MD LAB - BLOOD ORDERABLES Performing Organization Address City/State/ZIP Code Phon e Number MISYS (ABNORMAL) Basic metabolic panel (11/08/2006 11:36 PM LOT TECHNICIAN) P athologist Signature Sodium 137 133 - 144 MISYS mmol/L Potassium 3.9 3.4 - 5.3 MISYS mmol/L Chloride 105 96 - 110 MISYS mmol/L Carbon Dioxide 28 20 - 32 MISYS mmol/L Glucose 104 60 - 110 MISYS mg/dL Urea Nitrogen 12 5 - 24 MISYS mg/dL Creatinine 0.77 0.60 - MISYS 1.20 mg/dL GFR Estimate >90 >60 MISYS mL/min/1.7 m2 GFR Estimate If >90 >60 MISYS Black mL/min/1.7 m2 Comment: Stages of Chronic Kidney Disease Stage 1: ??GFR 90 or greater and other e vidence of kidney damage* Stage 2: ??GFR 60-89 and other evidence of kidney damage * Stage 3: ??GFR 30-59 Stage 4: ??GFR 15-29 Stage 5: ??GFR less than 15 or dialysis *Chronic kidney disease is defined as ki dney damage or GFR less than 60 mL/min/1.73 m2 for three months or grea ter. ??Kidney damage is defined as pathologic abnormalities or markers or damage, including abnormalities in blood or urine tests or imaging studies. Calcium 9.0 8.7 - 10.8 mg/dL MISYS Anion Gap 4 (L) 6 - 17 mmol/L MISYS Specimen Anatomical Collection Method Collection Time Receive d Time (Source) Location / / Volume Laterality 11/08/2006 11:36 11/08/2006 PM LOT TECHNICIAN 11:16 PM LOT TECHNICIAN Palomo Cornejo MD LAB - BLOOD ORDERABLES Performing Organization Address City/[facility]/ZIP Code Phon e Number MISYS Levetiracetam level (11/08/2006 11:36 PM LOT TECHNICIAN) [facility] Time Signature Levetiracetam <2.0 MISYS Level Comment: Unit: ug/ml (Note) EXPECTED STEADY STATE TROUGH CONCENTRATI ONS IN PATIENTS RECEIVING RECOMMENDED DAILY DOS AGES: 5 - 45 ug/ml. TOXIC RANGE HAS NOT BEEN ESTABLISHED. Analysis performed by [employer] [place] [address] Specimen Anatomical Collection Method Collection Time Receive d Time (Source) Location / / Volume Laterality 11/08/2006 11:36 11/08/2006 PM LOT TECHNICIAN 11:16 PM LOT TECHNICIAN Palomo Cornejo MD LAB - BLOOD ORDERABLES Performing Organization Address [facility] Phon e Number MISYS (ABNORMAL) Routine UA with microscopic (11/08/2006 11:29 PM LOT TECHNICIAN) [facility] gist Method Time Signature Source Midstream MISYS Urine Color Urine Yellow MISYS Appearance Urine Clear MISYS Glucose Urine Negative NEG mg/dL MISYS Bilirubin Urine Negative NEG MISYS Ketones Urine Negative NEG mg/dL MISYS Specific [place] 1.019 1.003 - MISYS Urine 1.035 Blood Urine Negative NEG MISYS pH Urine 5.5 5.0 - 7.0 MISYS pH Protein Albumin Negative NEG mg/dL MISYS Urine Urobilinogen Normal 0.0 - 2.0 MISYS mg/dL mg/dL Nitrite Urine Negative NEG MISYS Leukocyte Negative NEG MISYS Esterase Urine WBC Urine 2 0 - 2 MISYS /HPF RBC Urine 1 0 - 2 MISYS /HPF Squamous 5 (H) 0 - 1 MISYS Epithelial /HPF /HPF Urine Bacteria Urine Few (A) NEG /HPF MISYS Mucous Urine Present (A) NEG /LPF MISYS Specimen Anatomical Collection Method Collection Time Receive d Time (Source) Location / / Volume Laterality 11/08/2006 11:29 11/08/2006 PM LOT TECHNICIAN 11:16 PM LOT TECHNICIAN Palomo Cornejo MD LAB - URINE ORDERABLES Performing Organization Address City/State/ZIP Code Phon e Number MISYS documented in this encounter Visit Diagnoses Not on filedocumented in this encounter
--- OUTSIDE RECORDS SUMMARY | 2022-06-18 08:43 | XMS_ITS | Encounter Summary ---
:1985 Author Organization [place] Address [address] [place] [address] Care Team Providers Name Role Phone Unavailable Primary Care Provider Unavailable Encounter Details Date Type Department Care Team Description 03/07/2007 Historic Results INTERFACED REPORT Shayne Kidd EMERGENCY PHYSIC [facility] [address] [place] [address] (Wo rk) Social History Tobacco Use Types Packs/Day Years Used Date Never Assessed Sex Assigned at Date Recorded Not on file documented as of this encounter Plan of Treatment Not on filedocumented as of this encounter Procedures Procedure Name Priority Date/Time Associated Comments Diagnosis HCG QUALITATIVE URINE STAT 03/07/2007 3:09 AM Results for this CDT procedure are i n the results section. ROUTINE UA WITH STAT 03/07/2007 3:09 AM Result s for this MICROSCOPIC CDT procedure are i n the results section. HEMOGRAM AND PLATELET STAT 03/07/2007 2:28 AM Results for this CDT procedure are i n the results section. LEVETIRACETAM LEVEL STAT 03/07/2007 2:28 AM Re sults for this CDT procedure are i n the results section. BASIC METABOLIC PANEL STAT 03/07/2007 2:28 AM Results for this CDT procedure are i n the results section. documented in this encounter Results (ABNORMAL) Routine UA with microscopic (03/07/2007 3:09 AM CDT) [facility] Method Time Signature Source Midstream MISYS Urine Color Urine Yellow MISYS Appearance Urine Clear MISYS Glucose Urine Negative NEG mg/dL MISYS Bilirubin Urine Negative NEG MISYS Ketones Urine Negative NEG mg/dL MISYS Specific [place] 1.024 1.003 - MISYS Urine 1.035 Blood Urine Moderate (A) NEG MISYS pH Urine 5.5 5.0 - 7.0 MISYS pH Protein Albumin 10 (A) NEG mg/dL MISYS Urine Urobilinogen Normal 0.0 - 2.0 MISYS mg/dL mg/dL Nitrite Urine Negative NEG MISYS Leukocyte Negative NEG MISYS Esterase Urine WBC Urine 4 (H) 0 - 2 MISYS /HPF RBC Urine 1 0 - 2 MISYS /HPF Squamous <1 0 - 1 MISYS Epithelial /HPF /HPF Urine Bacteria Urine Few (A) NEG /HPF MISYS Mucous Urine Present (A) NEG /LPF MISYS Specimen Anatomical Collection Method Collection Time Receive d Time (Source) Location / / Volume Laterality 03/07/2007 3:09 AM 7 2:17 CDT AM CDT Walt Kidd LAB - URINE ORDERABLES Performing Organization Address [facility] Phon e Number MISYS HCG qualitative urine (03/07/2007 3:09 AM CDT) P athologist Signature HCG Qual Urine Negative NEG MISYS Specimen Anatomical Collection Method Collection Time Receive d Time (Source) Location / / Volume Laterality 03/07/2007 3:09 AM 7 2:17 CDT AM CDT Walt Kidd LAB - URINE ORDERABLES Performing Organization Address [facility] Phon e Number MISYS Levetiracetam level (03/07/2007 2:28 AM CDT) Analysis Performed At Patho logist Time Signature Levetiracetam 5.6 MISYS Level Comment: Unit: ug/ml (Note) EXPECTED STEADY STATE TROUGH CONCENTRATI ONS IN PATIENTS RECEIVING RECOMMENDED DAILY DOS AGES: 5 - 45 ug/ml. TOXIC RANGE HAS NOT BEEN ESTABLISHED. Analysis performed by [email or web address], [address] [place] [address] Specimen Anatomical Collection Method Collection Time Receive d Time (Source) Location / / Volume Laterality 03/07/2007 2:28 AM 7 2:17 CDT AM CDT Walt Kidd LAB - BLOOD ORDERABLES Performing Organization Address [facility] Phon e Number MISYS (ABNORMAL) Basic metabolic panel (03/07/2007 2:28 AM CDT) P athologist Signature Sodium 143 133 - 144 MISYS mmol/L Potassium 3.7 3.4 - 5.3 MISYS mmol/L Chloride 106 96 - 110 MISYS mmol/L Carbon Dioxide 25 20 - 32 MISYS mmol/L Glucose 139 (H) 60 - 99 MISYS mg/dL Urea Nitrogen 17 5 - 24 MISYS mg/dL Creatinine 1.00 0.60 - MISYS 1.20 mg/dL GFR Estimate 76 >60 MISYS mL/min/1.7 m2 GFR Estimate If >90 >60 MISYS Black mL/min/1.7 m2 Calcium 8.9 8.7 - 10.8 MISYS mg/dL Anion Gap 11 6 - 17 MISYS mmol/L Specimen Anatomical Collection Method Collection Time Receive d Time (Source) Location / / Volume Laterality 03/07/2007 2:28 AM 7 2:17 CDT AM CDT Walt [facility] LAB - BLOOD ORDERABLES Performing Organization Address City/State/ZIP Code Phon e Number MISYS Hemogram and platelet (03/07/2007 2:28 AM CDT) P athologist Signature MCV 88 78 - 100 fl MISYS MCH 30.0 26.5 - 33.0 MISYS pg MCHC 34.2 31.5 - 36.5 MISYS g/dL RDW 12.8 10.0 - 15.0 MISYS % WBC 9.5 4.0 - 11.0 MISYS 10e9/L RBC Count 4.14 3.8 - 5.2 MISYS 10e12/L Hemoglobin 12.4 11.7 - 15.7 MISYS g/dL Hematocrit 36.3 35.0 - 47.0 MISYS % Platelet Count 237 150 - 450 MISYS 10e9/L Specimen Anatomical Collection Method Collection Time Receive d Time (Source) Location / / Volume Laterality 03/07/2007 2:28 AM 7 2:17 CDT AM CDT Walt [facility] LAB - BLOOD ORDERABLES Performing Organization Address City/State/ZIP Code Phon e Number MISYS documented in this encounter Visit Diagnoses Not on filedocumented in this encounter
--- OUTSIDE RECORDS SUMMARY | 2022-06-18 08:43 | XMS_ITS | Encounter Summary ---
:1985 Author Organization [facility] Address [address] [place] [address] Care Team Providers Name Role Phone Unavailable Primary Care Provider Unavailable Encounter Details Date Type Department Care Team Description 03/07/2007 Emergency room Jessika Kidd EMERGENCY PHYSIC [facility] [address] [facility] [place], [place] [id number] (Wo rk) Social History Tobacco Use Types Packs/Day Years Used Date Never Assessed Sex Assigned at Date Recorded Not on file documented as of this encounter Progress Notes Interface, Miniature Train Driver - 05/02/2007 3:08 PM CDT FINAL CHIEF COMPLAINT: Seizure. HISTORY OF PRESENT ILLNESS: The patient is a 21-year-old female who has a history of seizures in the past, both of her seizures have happened in the past when she was talking with her boyfriend on thephone and with her boyfriend one time. She was started on Keppra, she apparently did have a slightlyabnormal MRI and the EEG according to the family was abnormal as well. She takes Keppra 500 mg, thishas just recently increased to 1000 mg b.i.d. on 10/14. Tonight she was talking on the phone and herboyfriend heard a loud scream and he hung up and called her parents and told them to go check on herand they found her lying on bed with her eyes dilated and her eyes rolled back in the back of her head. No loss of bowel or bladder function, did not bite her tongue. She is slightly confused when she came to, she was transported here and has had no further seizures. The patient does not do any drugs,says she is not . No fever, no chills and no other signs of infection. No other complaints at this time. She states she has not taken her medications. She is seeing her neurologist early next week. The patient just recently had the EEG and MRI done. PAST MEDICAL HISTORY: Seizures with a similar episode in November. PAST SURGICAL HISTORY: Unremarkable. SOCIAL HISTORY: Unremarkable. FAMILY HISTORY: Mom had seizures. MEDICATIONS: See attached medication list. ALLERGIES: None. REVIEW OF SYSTEMS: As noted in HPI. All other systems are negative. PHYSICAL EXAMINATION: GENERAL: The patient is alert and cooperative. VITAL SIGNS: Blood pressure 107/63, pulse 78, respiratory rate 18, temperature 97.5 and O2 sats 98%on room air. HEENT: Head is normocephalic and atraumatic. Pupils are equal, round and reactive to light. EOMs are intact. Oropharynx is pink, moist and intact. No lesions noted. External auditory canals are without drainage. NECK: Supple, full range of motion. CARDIAC: Regular rate and rhythm without murmurs. PULMONARY: Clear bilaterally, no rhonchi or wheezes. ABDOMEN: Soft and nontender. EXTREMITIES: Normal. NEUROLOGIC: Cranial nerves II through XII appear grossly intact. No focal deficits. SKIN: [place], warm and dry. EMERGENCY DEPARTMENT COURSE: The patient had a basic metabolic panel completed all within normal limits with exception of the glucose of 139, hemogram and platelet count was normal. Urinalysis did show signs of early UTI with 4 white cells and some bacteria present, less than 1 squamous cell. Urine hCG is negative. I gave the patient Ativan 1 mg orally. She had no further seizures in the ED. I spoketo them regarding seizures and a Keppra level with this is pending. Her neurologist can check on this and I will let her neurologist increase the Keppra if needed. DIAGNOSES: Possible seizure and urinary tract infection. PLAN: The patient will be discharged home. I am going to put her on Cipro for 5 days. Call neurologist in a.m., continue the Keppra, return to emergency department if symptoms get worse. I also gave her vicodin for a yeast infection. Electronically signed on 05/02/2007 15:08 by JESSIKA KIDD MD MT: [id number] Name: TRINITY AYALA MRN: [id number] Account: [id number] : 1985 Visit Date: 03/07/2007 Document: [id number] documented in this encounter Plan of Treatment Not on filedocumented as of this encounter Visit Diagnoses Not on filedocumented in this encounter
--- OUTSIDE RECORDS SUMMARY | 2022-06-18 08:43 | XMS_ITS | Encounter Summary ---
:1985 Author Organization [facility] Address [address] [place] [address]. [place] [address] Care Team Providers Name Role Phone Unavailable Primary Care Provider Unavailable Encounter Details Date Type Department Care Team Description 10/12/2006 Historic Results INTERFACED REPORT Wander Arguello MD [address] [place] [phone] Social History Tobacco Use Types Packs/Day Years Used Date Never Assessed Sex Assigned at Date Recorded Not on file documented as of this encounter Plan of Treatment Not on filedocumented as of this encounter Procedures Procedure Name Priority Date/Time Associated Comments Diagnosis HEMOGRAM DIFFERENTIAL STAT 10/12/2006 8:45 AM Results for this AND PLATELET BUS AND RAIL OPERATOR procedure are i n the results section. HCG QUALITATIVE STAT 10/12/2006 8:45 AM Result s for this BUS AND RAIL OPERATOR procedure are i n the results section. BASIC METABOLIC PANEL STAT 10/12/2006 8:45 AM Results for this BUS AND RAIL OPERATOR procedure are i n the results section. documented in this encounter Results (ABNORMAL) Hemogram differential and platelet (10/12/2006 8:45 AM BUS AND RAIL OPERATOR) [facility] Method Time Signature MCV 89 78 - 100 MISYS fl MCH 29.2 26.5 - MISYS 33.0 pg MCHC 32.7 32.0 - MISYS 36.0 g/dL RDW 11.5 10.0 - MISYS 15.0 % WBC 9.0 4.0 - MISYS 11.0 10e9/L RBC Count 4.32 3.8 - 5.2 MISYS 10e12/L Hemoglobin 12.6 11.7 - MISYS 15.7 g/dL Hematocrit 38.5 35.0 - MISYS 47.0 % % Neutrophils 73 40 - 75 % MISYS % Lymphocytes 18 (L) 20 - 48 % MISYS % Monocytes 7 0 - 12 % MISYS % Eosinophils 2 0 - 6 % MISYS % Basophils 0 0 - 2 % MISYS Platelet Count 289 150 - 450 MISYS 10e9/L Absolute 6.6 1.6 - 8.3 MISYS Neutrophil 10e9/L Absolute 1.6 0.8 - 5.3 MISYS Lymphocytes 10e9/L Absolute 0.6 0.0 - 1.3 MISYS Monocytes 10e9/L Absolute 0.2 0.0 - 0.7 MISYS Eosinophils 10e9/L Absolute 0.0 0.0 - 0.2 MISYS Basophils 10e9/L Diff Method Automated MISYS Method Specimen Anatomical Collection Method Collection Time Receive d Time (Source) Location / / Volume Laterality 10/12/2006 8:45 AM 7 8:34 BUS AND RAIL OPERATOR AM BUS AND RAIL OPERATOR Wander Arguello MD LAB - BLOOD ORDERABLES Performing Organization Address City/State/ZIP Code Phon e Number MISYS Basic metabolic panel (10/12/2006 8:45 AM BUS AND RAIL OPERATOR) P athologist Signature Sodium 137 133 - 144 MISYS mmol/L Potassium 3.7 3.4 - 5.3 MISYS mmol/L Chloride 103 96 - 110 MISYS mmol/L Carbon Dioxide 28 20 - 32 MISYS mmol/L Glucose 98 60 - 110 MISYS mg/dL Urea Nitrogen 12 5 - 24 MISYS mg/dL Creatinine 0.71 0.60 - MISYS 1.20 mg/dL GFR Estimate [...] 8.7 - 10.8 mg/dL MISYS Anion Gap 6 6 - 17 mmol/L MISYS Specimen Anatomical Collection Method Collection Time Receive d Time (Source) Location / / Volume Laterality 10/12/2006 8:45 AM 7 8:34 BUS AND RAIL OPERATOR AM BUS AND RAIL OPERATOR Wander Arguello MD LAB - BLOOD ORDERABLES Performing Organization Address City/State/[facility] Code Phon e Number MISYS HCG qualitative (10/12/2006 8:45 AM BUS AND RAIL OPERATOR) [facility] gist Method Time Signature HCG Qualitative Negative NEG MISYS Serum Specimen Anatomical Collection Method Collection Time Receive d Time (Source) Location / / Volume Laterality 10/12/2006 8:45 AM 7 8:34 BUS AND RAIL OPERATOR AM BUS AND RAIL OPERATOR Wander Arguello MD LAB - BLOOD ORDERABLES Performing Organization Address City/State/ZIP [facility] Phon e Number MISYS documented in this encounter Visit Diagnoses Not on filedocumented in this encounter
--- OUTSIDE RECORDS SUMMARY | 2022-06-18 08:43 | XMS_ITS | Encounter Summary ---
:1985 Author Organization [facility] Address [address] [place] [address] Care Team Providers Name Role Phone Unavailable Primary Care Provider Unavailable Encounter Details Date Type Department Care Team Description 11/08/2006 Emergency room Spike Quispe MD EMERGENCY PHYSIC [facility] [address] [employer] [employer] [address] [place], [place] [phone] (Wo rk) Social History Tobacco Use Types Packs/Day Years Used Date Never Assessed Sex Assigned at Date Recorded Not on file documented as of this encounter Progress Notes Spike Quispe - 11/11/2006 2:21 AM BATTERY TEST ENGINEER FINAL CHIEF COMPLAINT: Possible seizure. HISTORY OF PRESENT ILLNESS: The patient is a 21-year-old female who states that she felt fine all day today and then tonight she was talking to her boyfriend on the phone and then she really does not remember what happened after that until the ambulance arrived. Mother says she was home when she heard a scream and went upstairs to check on her after her boyfriend called back, seeing that she was notanswering questions and hung up. Mom noticed that she was pacing around the room and acting confused. She looked glazy-eyed and was not really responding to simple questions. She remained this way for about 5-10 minutes until the EMS arrived and she started to clear her sensorium. There was no obvioustongue injury or biting of the tongue or lip or cheek. She does not loose her urine at that time. The patient does not remember exactly what happened. The first thing she remembers is when EMS arrived.There has been no recent head trauma. She had some nausea as well initially afterwards and right nowshe just feels more fatigued. She has no focal numbness or weakness in her extremities. She has no blurred vision, no severe headache, no neck pain. She has not had recent fevers or febrile illnesses. The patient actually had just today had a MRI and EEG done to evaluate for a possible seizure disorder, but they have not gotten the results back for this yet. The patient comes in for evaluation of this by EMS. PAST MEDICAL HISTORY: Negative for possible seizure history PAST SURGICAL HISTORY: No previous surgeries. No history of head injury. SOCIAL HISTORY: She does not smoke, use drugs or drink alcohol. FAMILY HISTORY: Mother does have a history of seizure disorder. 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 MEDICATIONS: Keppra 500 mg b.i.d. which she said she did not take today. ALLERGIES: No known drug allergies. REVIEW OF SYSTEMS: The patient says she has been sleep deprived because they have been doing a sleep deprivation study. She had been awake for about 32 hours prior to this happening and she had not taken her Keppra dose today. PHYSICAL EXAMINATION: VITAL SIGNS: Blood pressure 113/75, pulse 85, respirations 20, temperature 98.5, O2 sat 98% on roomair. HEENT: Head is atraumatic, normocephalic. TMs normal. Pupils equal, round, reactive to light. There is no nystagmus noted. Nasal exam is normal. Oral mucosa is moist with no obvious oral lesions noted. NECK: Supple, no lymphadenopathy, no meningismus signs. LUNGS: Clear. HEART: Regular and rhythm. ABDOMEN: Soft, nondistended, nontender. EXTREMITIES: Normal. There are no significant joint effusions or swelling. SKIN: Warm, there is no rash noted. NEUROLOGIC: The patient is completely oriented at this time. She has no confusion at all. She is awake and answering questions appropriately. There are no focal neurologic signs. She has excellent strength in upper and lower extremities. She has good deep tendon reflexes as well. HOSPITAL COURSE: IV was established. I did get labs including CBC, BMP and a Keppra level and UA. There are no signs of any infectious process. Her electrolytes were normal. The Keppra level came backlow at less than 2. She is given an oral dose of Keppra 500 mg here since she had not taken her doseearlier on today. I was able get the MRI report from [facility] that was done earlier today. This showed a minimal Chiari-I type malformation, but otherwise there are no signs of abnormality at all in the MRI. The EEG results were not available at this time. I discussed with the patient and her family that she needs to be sure she takes her Keppra dose over the weekend for sure. I not think we need to increase or change in this medication at this time, especially with the level being what it is. She needs to drink plenty of fluids. Rest; I do not want her working tomorrow, so she can take it easy and stay home with family. She is not to drive until she is cleared by her primary care physician. She is to return here if she has repeated seizures at home or any fevers, chills or neck stiffness or severe headache. Otherwise, they will follow up with her primary care physician early next week to go over the EEG results. The patient discharged in good and stable condition. DIAGNOSIS: Possible seizure. Electronically signed on 11/11/2006 02:20 by SPIKE QUISPE MD MT: [id number] Name: TRINITY AYALA MRN: [id number] Account: [id number] : 1985 Visit Date: 11/08/2006 Document: [id number] ERY TEST ENGINEER documented in this encounter Plan of Treatment Not on filedocumented as of this encounter Visit Diagnoses Not on filedocumented in this encounter
--- OUTSIDE RECORDS SUMMARY | 2022-06-18 08:43 | XMS_ITS | Encounter Summary ---
:1985 Author Organization [facility] Address [address] [place] [address] Care Team Providers Name Role Phone Unavailable Primary Care Provider Unavailable Encounter Details Date Type Department Care Team Description 10/12/2006 Historic Results INTERFACED REPORT Wander Arguello MD [address] [place] [phone] Social History Tobacco Use Types Packs/Day Years Used Date Never Assessed Sex Assigned at Date Recorded Not on file documented as of this encounter Plan of Treatment Not on filedocumented as of this encounter Procedures Procedure Name Priority Date/Time Associated Diagnosis Comme nts EKG 12 LEAD Routine 10/12/2006 8:37 AM Results f or this ADVERTISING INSERTER procedure are i n the results section . documented in this encounter Results EKG 12 LEAD (10/12/2006 8:37 AM ADVERTISING INSERTER) Component Value Ref Range Test Analysis Performed Pathologis t Method Time At Signature Ventricular Rate 83 BPM RADIOLOGY RESULTS Atrial Rate 83 BPM RADIOLOGY RESULTS ME Interval 158 ms RADIOLOGY RESULTS QRS Duration 82 ms RADIOLOGY RESULTS QT 340 ms RADIOLOGY RESULTS QTc 399 ms RADIOLOGY RESULTS P [place] 54 degrees RADIOLOGY RESULTS R AXIS 48 degrees RADIOLOGY RESULTS T [place] 20 degrees RADIOLOGY RESULTS Interpretation Poor data quality, interpretation may be adv ersely affected RADIOLOGY ECG AGE AND GENDER SPECIFIC ECG ANALYSIS RESULTS Sinus rhythm with sinus arrhythmia Normal ECG Unconfirmed report - interpretation of this ECG is compute r generated - see medical record f or final interpretation Specimen Anatomical Collection Method Collection Time Receive d Time (Source) Location / / Volume Laterality 10/12/2006 8:37 AM 7 8:34 ADVERTISING INSERTER AM ADVERTISING INSERTER Wander Arguello MD ECG ORDERABLES Performing Organization Address City/State/ZIP Code Phon e Number RADIOLOGY RESULTS documented in this encounter Visit Diagnoses Not on filedocumented in this encounter
--- OUTSIDE RECORDS SUMMARY | 2022-06-18 08:43 | XMS_ITS | Encounter Summary ---
:1985 Author Organization [facility] Address [address] [place] [address] Care Team Providers Name Role Phone Unavailable Primary Care Provider Unavailable Encounter Details Date Type Department Care Team Description 07/24/2007 Emergency room Melisa Barton MD EMERGENCY PHYSIC [facility] [address] [facility] [address] [place], [place] [phone] (Wo rk) Social History Tobacco Use Types Packs/Day Years Used Date Never Assessed Sex Assigned at Date Recorded Not on file documented as of this encounter Progress Notes Melisa Barton MD - 07/29/2007 8:04 AM CDT FINAL CHIEF COMPLAINT: Epigastric pain. HISTORY OF PRESENT ILLNESS: Trinity Ayala is a 22-year-old female who presented to the Emergency Department complaining of epigastric pain. She says she had an increase in her seizure medicine today and says she did eat a meal; but now she has a little epigastric pain which is about a 6-7/10. Itcomes and goes, and nothing seems to make it better or worse. It is not associated with any fevers, blood in the stool, no dysuria, no lower abdominal pain. There is some question as to whether or not the patient truly has a seizure disorder or has syncope; but really that is not much in question today. She is just concerned that the seizure medicines are giving her all these symptoms. From the outset I am really not convinced that her seizure medicine is at all the cause of abdominal pain today. She said she did start a brand new diet today, including lots of fruits and vegetables. ALLERGIES: None. CURRENT MEDICATIONS: Keppra, Lamictal. PAST MEDICAL HISTORY: Negative other than seizures. SOCIAL HISTORY: Nonsmoker. REVIEW OF SYSTEMS: All other systems are reviewed and are negative. PHYSICAL EXAMINATION: VITAL SIGNS: Blood pressure 131/63, pulse 71, respirations 20, temperature 98.1 and oxygen saturation 97% on room air. GENERAL: This is a 22-year-old female who appears well. HEENT: Normocephalic and atraumatic. Mucous membranes are moist. Pupils are equal and round, oropharynx clear. HEART: Regular rate and rhythm. LUNGS: Breath sounds are clear bilaterally. ABDOMEN: Soft and completely nontender to deep palpation. Bowel sounds are present. EXTREMITIES: Atraumatic. NEUROLOGIC: Nonfocal. SKIN: Warm and dry. EMERGENCY DEPARTMENT COURSE: The patient has a normal hemogram, sedimentation rate, comprehensive metabolic battery, amylase and a negative test. Ultrasound of the abdomen does not reveal any acute abnormalities. EMERGENCY ROOM COURSE: The patient had an IV started here in the Emergency Room and was given 4 mg of Zofran, 4 mg of morphine and 30 mg Toradol all IV. She was given a one-liter bolus of normal saline IV over an hour. She tolerated this well. She was feeling much better and wanted to go home. I did add on a Keppra level as the patient was concerned about this and wanted to follow up with her familydoctor regarding her Keppra. The patient will follow up with her family doctor and return if anything gets any worse. I feel some of the symptoms today may be diet-related. DIAGNOSIS: Epigastric pain. Electronically signed on 07/29/2007 08:03 by MELISA BARTON MD MT: [id number] Name: TRINITY AYALA MRN: [id number] Account: [id number] : 1985 Visit Date: 07/24/2007 Document: [id number] documented in this encounter Plan of Treatment Not on filedocumented as of this encounter Visit Diagnoses Not on filedocumented in this encounter
--- OUTSIDE RECORDS SUMMARY | 2022-06-18 08:43 | XMS_ITS | Encounter Summary ---
:1985 Author Organization [facility] Address [address] [place] [address]. [place] [address] Care Team Providers Name Role Phone Unavailable Primary Care Provider Unavailable Encounter Details Date Type Department Care Team Description 10/12/2006 Emergency room Wander Arguello MD [address] [place] [id number] Social History Tobacco Use Types Packs/Day Years Used Date Never Assessed Sex Assigned at Date Recorded Not on file documented as of this encounter Progress Notes Interface, Hide Or Skin Buffer - 10/17/2006 10:17 AM PRIVATE EQUITY ASSOCIATE FINAL CHIEF COMPLAINT: Weakness. HISTORY OF PRESENT ILLNESS: The patient is a 21-year-old female who got up this morning at 6:40, she had be work at 7:00. 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 She was taken to the service station where 911 was called. Paramedics responded to the scene and after a few minutes and by the time he arrived there, she was still somewhat confusedbut clearing. Her boyfriend and says that is when on for 7-8 minutes. She bit her tongue and injuredher left long fingernail. She has noted some weakness in her extremities since the incident and someaching in her arms as well but says she had that before from tubing. She has had some upper respiratory symptoms since [facility] with a cough that has been nonproductive. She has not had a fever. She has no complaints of headache or nausea. The patient has no voiding problems. She had a period a monthago and is due to get another one soon. She feels like she has something in her nose and also in herthroat. She had some kind of an episode which may have been a seizure in 2000. She had a negative workup at that time including EEG, she was treated with Depakote for a little over a year and then was taken off the medication. She did not have any more problems until she went to a sleepover in June and had some kind of an episode of drooling during which her friends took her in the bathroom. Thepatient states that she has not had any head trauma and she has no other significant past medical history. MEDICATIONS: None. ALLERGIES: None. PAST MEDICAL HISTORY: As above and episodic illnesses. She is vaccinated. SOCIAL HISTORY: She does not smoke or use alcohol. She is here with her mother and boyfriend and lives at home. FAMILY HISTORY: Mother had seizures at age 13, she has never been treated with medications. REVIEW OF SYSTEMS: All other systems are negative. PHYSICAL EXAMINATION: GENERAL: An alert female. VITAL SIGNS: Temperature 96.4, pulse 87, respirations 16, blood pressure 130/81 and pulse ox 99% onroom air. HEENT: Normal. NECK: Supple. LYMPHATICS: Normal. CHEST: Shows clear equal breath sounds. CARDIOVASCULAR: Regular S1 and S2 without murmur, normal pulses. ABDOMEN: Bowel sounds are active. It is soft and nontender. There are no masses or guarding. BACK: Negative. EXTREMITIES: Showed that she has partially avulsed her left long finger nail which has an artificial nail on it. NEUROLOGIC: Within normal limits. Mucous membranes show that she has a small bite on the right side of her anterior tongue. LABORATORY DATA: Head CT without contrast is normal. EKG shows a sinus rhythm at 83. The QRS is 0.08 milliseconds with normal axis. ST and T waves are within normal limits. Basic metabolic panel is normal. HCG is negative. White count 9000, hemoglobin 12.6, platelets and differential are normal. EMERGENCY DEPARTMENT COURSE: The patient was reassured pending results of her tests. We had her soak her left long finger in Hibiclens and saline and then dressed it with a Band-Aid. The situation wasdiscussed with the patient and family and the possibilities were reviewed. It is not clear if the patient had a syncopal episode and then had extremity jerking or if she had a primary seizure. She willneed to be worked up again and have another EEG. She can do that through [facility] which is her primary clinic. In the meanwhile, the patient will not be able to drive. We discussed having her takeDepakote again. The patient seems to be doing well otherwise. She does not have an apparent foreign body in her chest or nose since her nose is patent and I doubt she aspirated since she is not having any respiratory symptoms. The discharge plan was reviewed with them and is as follows: DISCHARGE PLAN: The patient is not to drive for now. She is to be sure she gets plenty of rest and she is to be on seizure precautions, that was discussed with the family including her parent's and boyfriend. 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 She is to have an EEG done at [facility] as soon as possible and they can call today to set that up. The patient is to be rechecked with her doctor within 5-6 days, sooner if needed and may return to emergency department as needed. DIAGNOSIS: Seizure. Electronically signed on 10/17/2006 10:17 by WANDER ARGUELLO MD MT: MARIO#[id number] Name: TRINITY AYALA MRN: [id number] Account: [id number] : 1985 Visit Date: 10/12/2006 Document: [id number] ATE EQUITY ASSOCIATE documented in this encounter Plan of Treatment Not on filedocumented as of this encounter Visit Diagnoses Not on filedocumented in this encounter
--- OUTSIDE RECORDS SUMMARY | 2022-06-18 08:44 | XMS_ITS | Encounter Summary ---
:1985 Author Organization [facility] Address [address] [place] [address] Care Team Providers Name Role Phone Unavailable Primary Care Provider Unavailable Encounter Details Date Type Department Care Team Description 08/07/2021 Clinical Communication Department of Neurology Rui Godinez, in Navya Bose M.D., M.P.H. [address] [place] [address] [place], [place] [phone] Social History Tobacco Use Types Packs/Day Years Used Date Smoking Tobacco: Never Smokeless Tobacco: Never Alcohol Use Standard Drinks/Week Comments No 0 (1 standard drink = 0.6 oz pure alcoho l) Alcohol Habits Answer Date Recorded How often do you have a drink containing alcohol? Never 11/08/2021 How many drinks containing alcohol do you have on a typical 1 or 2 08/25/2019 day when you are drinking? How often do you have six or more drinks on one occasion? Ne emilee 10/10/2020 Comment: Not asked Social Isolation Answer Date Recorded In a typical week, how many times do you More than three susan es a week 11/08/2021 talk on the phone with family, friends, or neighbors? How often do you get together with friends Twice a week 11/08/2021 or relatives? How often do you attend synagogue or Never 2021 hoahaoism services? Do you belong to any clubs or No 11/08/2021 organizations such as synagogue groups, unions, fraternal or athletic groups, or school groups? How often do you attend meetings of the Never 11/08/2021 clubs or organizations you belong to? Are you now , , , 11/08/2021 , never or living with a partner? Physical Activity Answer Date Recorded On average, how many days per week do you engage in moderate to 2 days 11/08/2021 strenuous exercise (like walking fast, running, jogging, dancing, swimming, biking, or other activities that cause a light or heavy sweat)? On average, how many minutes do you engage in exercise at is 30 min 11/08/2021 level? Stress Answer Date Recorded Do you feel stress - tense, restless, nervous, or anxious, R ather much 11/08/2021 or unable to sleep at night because your mind is troubled all the time - these days? Financial Resource Strain Answer Date Recorded How hard is it for you to pay for the very basics like Not h serjio at all 11/08/2021 food, housing, medical care, and heating? Intimate Partner Violence Answer Date Recorded Within the last year, have you been afraid of your partner o r No 11/08/2021 ex-partner? Within the last year, have you been humiliated or emotionall y No 11/08/2021 abused in other ways by your partner or ex-partner? Within the last year, have you been kicked, hit, slapped, or No 11/08/2021 otherwise physically hurt by your partner or ex-partner? Within the last year, have you been raped or forced to have any No 11/08/2021 kind of sexual activity by your partner or ex-partner? Food Insecurity Answer Date Recorded Within the past 12 months, you worried that your food would Never true 11/08/2021 run out before you got money to buy more. Within the past 12 months, the food you bought just didn't N ever true 11/08/2021 last and you didn't have money to get more. Transportation Needs Answer Date Recorded In the past 12 months, has lack of transportation kept you f rom No 11/08/2021 medical appointments or from getting medications? In the past 12 months, has lack of transportation kept you f rom No 11/08/2021 meetings, work, or getting things needed for daily living? Housing Stability Answer Date Recorded In the last 12 months, was there a time when you were not ab le No 11/08/2021 to pay the mortgage or rent on time? In the last 12 months, how many places have you lived? 1 11/08/2021 In the last 12 months, was there a time when you did not hav e a No 11/08/[address] to [address] or slept in a residential (including now)? Education Answer Date Recorded What is the highest level of school Associate degree: gómez wyatt, 10/10/2020 you have completed or the highest technical, or vocational p natan degree you have received? Sex Assigned at Date Recorded Female 02/02/2019 3:06 PM CDT documented as of this encounter Miscellaneous Notes Telephone Encounter - Sally Wallis L.P.N. - 09/05/2021 8:42 AM CENTRAL OFFICE MECHANIC Portal message sent. RAL OFFICE MECHANIC Telephone Encounter - Sally Wallis L.P.N. - 08/16/2021 2:10 PM CENTRAL OFFICE MECHANIC Message left to return call. RAL OFFICE MECHANIC Telephone Encounter - Sally Wallis L.P.N. - 08/07/2021 11:00 AM CDT Left message for patient to return call. Needs to schedule appointment with . Can schedule office visit or video. Patient needs 30 minute appt. For seizures. documented in this encounter Plan of Treatment Not on filedocumented as of this encounter Visit Diagnoses Not on filedocumented in this encounter
--- OUTSIDE RECORDS SUMMARY | 2022-06-18 08:44 | XMS_ITS | Encounter Summary ---
:1985 Author Organization [facility] Address [address] [place] [id number] Care Team Providers Name Role Phone Unavailable Primary Care Provider Unavailable Encounter Details Date Type Department Care Team Description 12/24/2019 Orders Only [facility] - [facility] Brink [address] [phone] (W ork) [address] [place] [address] Social History Tobacco Use Types Packs/Day Years Used Date Smoking Tobacco: Never Smokeless Tobacco: Never Alcohol Use Standard Drinks/Week Comments No 0 (1 standard drink = 0.6 oz pure alcoho l) Alcohol Habits Answer Date Recorded How often do you have a drink containing alcohol? Never 11/08/2021 How many drinks containing alcohol do you have on a typical or 2 08/25/2019 day when you are [...] or relatives? How often do you attend yarsanism or Never 2021 yazdanism services? Do you belong to any clubs or No 11/08/2021 organizations such as yarsanism groups, unions, fraternal or athletic groups, or [...] minutes do you engage in exercise at th is 30 min 11/08/2021 level? Stress Answer [...] place to sleep or slept in a senior care (including now)? Education Answer Date Recorded What is the highest level of school Associate degree: academ program 08/25/2019 you have completed or the highest degree you have received? Sex Assigned at Date Recorded Female 02/02/2019 3:06 PM CDT documented as of this encounter Plan of Treatment Not on filedocumented as of this encounter Visit Diagnoses Not on filedocumented in this encounter
--- OUTSIDE RECORDS SUMMARY | 2022-06-18 08:44 | XMS_ITS | Encounter Summary ---
:1985 Author Organization [facility] Address [address] [place] [address] Care Team Providers Name Role Phone Unavailable Primary Care Provider Unavailable Encounter Details Date Type Department Care Team Description 12/22/2019 Refill Department of Sleep Medicine in Rui Godinez M.D., [place], [place] M.P.H. [address] [place] [address] [place] [address] (Wo rk) Social History Tobacco Use Types [...] or relatives? How often do you attend presybeterian or Never 2021 zoroastrianism services? Do you belong to any clubs or No 11/08/2021 organizations such as presybeterian groups, unions, fraternal or athletic groups, or [...] place to sleep or slept in a detention (including now)? Education Answer Date Recorded What [...]
--- OUTSIDE RECORDS SUMMARY | 2022-06-18 08:44 | XMS_ITS | Encounter Summary ---
:1985 Author Organization [facility] Address [address] [place] [address] Care Team Providers Name Role Phone Unavailable Primary Care Provider Unavailable Encounter Details Date Type Department Care Team Description 03/29/2022 Orders Only Department of Sleep Rui Godinez Foca l Complex Partial Medicine in Karyn Poon, M.P .H. Epilepsy Not [place] [address] Intractable Without [address] [place], [place] Status Epilepticus [place] [phone] ([facility]) (Primary Dx) [phone] Social History Tobacco Use Types Packs/Day Years [...] or relatives? How often do you attend shinto or Never 2021 restoration services? Do you belong to any clubs or No 11/08/2021 organizations such as shinto groups, unions, fraternal or athletic groups, or [...] place to sleep or slept in a nursing home (including now)? Education Answer Date Recorded What is the highest level of school you have Some college, n o degree 11/08/2021 completed or the highest degree you have received? 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
--- OUTSIDE RECORDS SUMMARY | 2022-06-18 08:44 | XMS_ITS | Encounter Summary ---
:1985 Author Organization [facility] Address [address] [place] [address] Care Team Providers Name Role Phone Unavailable Primary Care Provider Unavailable Reason for Referral Outpatient (Routine) - Authorized Specialty Diagnoses / Procedures Referred By Contact Refer red To Contact Neurology Rui Godinez M.D ., M.P.H. 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 [address] [place] [address] Referral ID Status Reason Start Date Expiration Date Visits Requ ested Visits Authorized [id number] Closed 10/10/2020 10/10/2021 1 1 Encounter Details Date Type Department Care Team Description 11/08/2021 Telemedicine Department of Rui Godinez, Focal Comp tripp Partial Neurology in Karyn, M.P.H. Epilepsy Not [place], [place] [address] [place] [address] Intractable Without [address] [place], [place] [address] (HCC) [address] Social History Tobacco Use Types Packs/Day Years [...] or relatives? How often do you attend catholic or Never 2021 faith services? Do you belong to any clubs or No 11/08/2021 organizations such as catholic groups, unions, fraternal or athletic groups, or [...] place to sleep or slept in a custodial (including now)? Education Answer Date Recorded What is the highest level of school you have Some college, n o degree 11/08/2021 completed or the highest degree you have received? Sex Assigned at Date Recorded Female 02/02/2019 3:06 PM CDT documented as of this encounter Progress Notes Rui Godinez M.D., M.P.H. - 11/08/2021 8:45 AM CST SUBJECTIVE Consult conducted via real-time audio/video technology by Rui Godinez M.D., M.P.H. from [facility] to the patient in their home. Virtual visit between Dr. Godinez and Trinity. Trinity is a 36 y.o. female who agreed to a virtual visit. HISTORY OF PRESENT ILLNESS This 36-year-old patient is one whom I have seen for partial seizures previously. She had a history of seizures that started at age 15 and were both dyscognitive and convulsive. She arrived at the triple anticonvulsant therapy that she is presently on namely lamotrigine, levetiracetam and acetazolamide having seen Dr. Simpson's in Dr. Barnhart up in the [facility]. Interested reader is directed to that note from 02/02/2019. She had not any seizures since I follow her here in [place] and it has been a year since I saw herand she still remains seizure-free. Unfortunately she just lost a a just a few weeks ago on so that is very painful situation. But she notes that they were going to try to get again and so she remains on the same three anticonvulsant and mg of folic acid daily. She denies that therewere any new health concerns or medical conditions. We reviewed and renewed medications as outlined below. We reviewed pertinent preventative care. No results found for this or any previous visit. Medication changes today: New Medications Ordered This Visit Medications ??? levETIRAcetam (KEPPRA) 1,000 mg tablet Sig: Take 1 tablet (1,000 mg total) by mouth 2 (two) times a day. Please establish a new primary care provider at the clinic Dispense: 180 tablet Refill: 0 ??? lamoTRIgine (LaMICtaL) 200 mg tablet Sig: Take 2 tablets (400 mg total) by mouth 2 (two) times a day. DAW1 Dispense: 360 tablet Refill: 3 ??? acetaZOLAMIDE (DIAMOX) 500 mg 12 hr capsule Sig: Take 1 capsule (500 mg total) by mouth 2 (two) times a day. Dispense: 180 capsule Refill: 3 ??? folic acid 1 mg tablet Sig: Take 1 tablet (1,000 mcg total) by mouth daily. Dispense: 90 tablet Refill: 3 Medications Discontinued During This Encounter Medication Reason ??? lamoTRIgine (LaMICtaL) 200 mg tablet Reorder ??? acetaZOLAMIDE (DIAMOX) 500 mg 12 hr capsule Reorder ??? levETIRAcetam (KEPPRA) 1,000 mg tablet Reorder ??? folic acid 1 mg tablet Reorder The patient's allergies, current medications, problem list and medical history portions of the patient's history were reviewed and updated as appropriate. REVIEW OF SYSTEMS SOCIAL HISTORY Social History Tobacco Use ??? Smoking status: Never Smoker ??? Smokeless tobacco: Never Used Substance Use Topics ??? Alcohol use: No Social History Social History Narrative ??? Not on file OBJECTIVE VITAL SIGNS Current vitals signs couldn't be obtained as this is virtual visit. If patient reports a current weight or home BP this has been recorded. BMI Readings from Last 3 Encounters: No data found for BMI Wt Readings from Last 3 Encounters: 08/25/19 84.2 kg 02/02/19 97.1 kg PHYSICAL EXAMINATION Physical Exam She looks well at the visit and has little tearful as she discusses losing her recently. But the emotion and mood are appropriate given the situation. ASSESSMENT / PLAN There are no Patient Instructions on file for this visit. 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 Please establish a new primary care provider at the clinic, Starting Sat11/08/2021, Normal - lamoTRIgine (LaMICtaL) 200 mg tablet; Take 2 tablets (400 mg total) by mouth 2 (two) times a day. DAW1, Starting Sat11/08/2021, Until Sat11/08/2022, Normal - acetaZOLAMIDE (DIAMOX) 500 mg 12 hr capsule; Take 1 capsule (500 mg total) by mouth 2 (two) times a day., Starting Sat11/08/2021, Normal - Neurology office visit (clinic); Future; Expected date: 11/08/2022 - folic acid 1 mg tablet; Take 1 tablet (1,000 mcg total) by mouth daily., Starting Sat11/08/2021, Until Sat11/08/2022, Normal Refilled all of her seizure medicines like acid. I will anticipate a visit with her in a year. If she gets is probably advisable for me to see her more frequently as lamotrigine in particularand levetiracetam less so are subject to drops in serum concentration during because of increased metabolism and excretion. I spent 25 total minutes on this visit today, including the time in preparation, and the actual timeduring the video. 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
--- OUTSIDE RECORDS SUMMARY | 2022-06-18 08:44 | XMS_ITS | Encounter Summary ---
:1985 Author Organization [facility] Address [address] [place] [address] Care Team Providers Name Role Phone Unavailable Primary Care Provider Unavailable Reason for Visit Reason Onset Date Comments pharm calling for dosage verification 12/01/2019 Encounter Details Date Type Department Care Team Description 12/01/2019 Clinical Communication Department of Rui Godinez calling for Neurology in Karyn Kaplan, dosage verifica Alma Fitzgerald.PMichaelH. [place] [address] [phone] Social History Tobacco Use Types Packs/Day [...] or relatives? How often do you attend spiritism or Never 2021 mu-ism services? Do you belong to any clubs or No 11/08/2021 organizations such as spiritism groups, unions, fraternal or athletic groups, or [...] place to sleep or slept in a [facility] (including now)? Education Answer Date Recorded What is the highest level of school Associate degree: academ logolineup program 08/25/2019 you have completed or the highest degree you have received? Sex Assigned at Date Recorded Female 02/02/2019 3:06 PM CDT documented as of this encounter Miscellaneous Notes Telephone Encounter - Nivia Beasley - 12/01/2019 8:50 AM CST Reason for Communication: [facility] in [place] called to verify dosage of Lamictal. Current Can Nursing/Provider leave a detailed message: Did the patient refuse triage through Nurse line? (for symptom based concerns): Action Needed: please call Name of Medication (if relevant): DEVELOPER documented in this encounter Plan of Treatment Not on filedocumented as of this encounter Visit Diagnoses Not on filedocumented in this encounter
--- OUTSIDE RECORDS SUMMARY | 2022-06-18 08:44 | XMS_ITS | Encounter Summary ---
:1985 Author Organization [facility] Address [address] [place] [address] Care Team Providers Name Role Phone Unavailable Primary Care Provider Unavailable Reason for Visit Reason Comments Med Refill Encounter Details Date Type Department Care Team Description 09/28/2020 Refill Department of Neurology in Rui Godinez M.D., Med Refill [place], [place] M.P.H. [address] [place] [address] [address] [place] [address] [phone] (Wo rk) Social History Tobacco Use Types [...] or relatives? How often do you attend amish or Never 2021 zoroastrian services? Do you belong to any clubs or No 11/08/2021 organizations such as amish groups, unions, fraternal or athletic groups, or [...] place to sleep or slept in a group home (including now)? Education Answer Date Recorded What is the highest level of school Associate degree: [employer] program 08/25/2019 you have completed or the highest degree you have received? Sex Assigned at Date Recorded Female 02/02/2019 3:06 PM CDT documented as of this encounter Plan of Treatment Not on filedocumented as of this encounter Visit Diagnoses Not on filedocumented in this encounter
--- OUTSIDE RECORDS SUMMARY | 2022-06-18 08:44 | XMS_ITS | Encounter Summary ---
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 [address], [place] [address] Referral ID Status Reason Start Date Expiration Date Visits Requ ested Visits Authorized [id number] Closed 10/10/2020 10/10/2021 1 1 RATORY CHIEF Reason for Visit Outpatient (Routine) - Closed Specialty Diagnoses / Procedures Referred By Contact Refer red To Contact Neurology Rui Godinez M.D ., M.P.H. [facility] [address] [place] [address] Referral ID Status Reason Start Date Expiration Date Visits Requ ested Visits Authorized [id number] Closed 08/25/2019 08/24/2020 1 1 Encounter Details Date Type Department Care Team Description 10/10/2020 Telemedicine Department of Rui Godinez, Focal Comp tripp Partial Neurology in Karyn Bose, M.P .H. Epilepsy Not [place] [address] [place] [address] Intractable Without [address] [place], [place] [address] (HCC) (Primary Dx) [phone] Social History Tobacco Use Types Packs/Day [...] or relatives? How often do you attend roman catholic or Never 2021 sikhism services? Do you belong to any clubs or No 11/08/2021 organizations such as roman catholic groups, unions, fraternal or athletic groups, [...] the highest level of school Associate degree: gabinoa yoselin, 10/10/2020 you have completed or the highest technical, or vocational p rogram degree you have received? Sex Assigned at Date Recorded Female 02/02/2019 3:06 PM CDT documented as of this encounter Progress Notes Rui Godinze M.D., M.P.H. - 10/10/2020 9:15 AM CST SUBJECTIVE Consult conducted via real-time audio/video technology by Rui Godinez M.D., M.P.H. from [facility] to the patient in their home. Virtual visit between Dr. Godinez and Trinity. Trinity is a 35 y.o. female who agreed to a virtual visit. HISTORY OF PRESENT ILLNESS This patient is one whom I have seen in [facility] previously in addition to two prior visit here at [facility]. She remained seizure-free and side effect free previously she has delivered a child and a had been on folic acid 1 mg prescription but has now acquired [id number] folic acid she is taking that. She remains on lamotrigine and Keppra therapy I explained to her again that in fact will have to monitor her serum concentrations very carefully during the 2nd 3rd trimester of any subsequent pregnancies. She verbalized understanding that. I would like to start her back on folic acid prescription 1 mg per day and she is agreeable to this plan. She denies any side effects from the medicine current dose is levetiracetam 1000 mg b.i.d. and lamotrigine is 400 mg b.i.d..She has her lamotrigine as CIERA. I her child's night [id number] doing well. She has no concerns. The interested reader is directed to my note from 02/02/2019 about her prior management. We do not have any EEGs nor any MRIs in our system. She is also maintained on acetazolamide as she has told this was for seizures. Pull it is true it is sometimes used for seizures certainly not main stream. She said her doctor said that she might have too much fluid on her brain. If that be the case I really think she needs an MRI in our system and she is agreeable to doing that. We reviewed and renewed medications as outlined below. We reviewed pertinent preventative care. No results found for this or any previous visit. Medication changes today: New Medications Ordered This Visit Medications ??? levETIRAcetam (KEPPRA) 1,000 mg tablet Sig: Take 1 tablet (1,000 mg total) by mouth 2 (two) times a day. Dispense: 180 tablet Refill: 3 ??? lamoTRIgine (LaMICtaL) 200 mg tablet Sig: Take 2 tablets (400 mg total) by mouth 2 (two) times a day. DAW1 Dispense: 360 tablet Refill: 3 ??? folic acid 1 mg tablet Sig: Take 1 tablet (1,000 mcg total) by mouth daily. Dispense: 90 tablet Refill: 3 Medications Discontinued During This Encounter Medication Reason ??? folic acid 1 mg tablet Reorder ??? lamoTRIgine (LaMICtaL) 200 mg tablet Reorder ??? levETIRAcetam (KEPPRA) 1,000 mg tablet Reorder The patient's allergies, current medications, problem list and medical history portions of the patient's history were reviewed and updated as appropriate. REVIEW OF SYSTEMS Constitutional: Positive for fatigue and night sweats. Gastrointestinal: Positive for abdominal (belly) pain or cramping. Musculoskeletal: Positive for back pain. Psychiatric/Behavioral: Positive for little interest or pleasure in doing things over past two weeks. The following systems were negative: Skin, Eyes, ENT, CV, Respiratory, , Hematologic, Neuro SOCIAL HISTORY Social History Tobacco Use ??? Smoking status: Never Smoker ??? Smokeless tobacco: Never Used Substance Use Topics ??? Alcohol use: No Frequency: Monthly or less Drinks per session: 1 or 2 Binge frequency: Never Social History Social History Narrative ??? Not on file OBJECTIVE VITAL SIGNS Current vitals signs couldn't be obtained as this is virtual visit. If patient reports a current weight or home BP this has been recorded. BMI Readings from Last 3 Encounters: No data found for BMI Wt Readings from Last 3 Encounters: 08/25/19 84.2 kg 02/02/19 97.1 kg PHYSICAL EXAMINATION Physical Exam Patient looks very well and is quite engaged in the conversation. ASSESSMENT / PLAN There are no Patient Instructions on file for this visit. 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 DAW1, Starting 10/10/2020, Until Sat10/10/2021, Normal - folic acid 1 mg tablet; Take 1 tablet (1,000 mcg total) by mouth daily., Starting Sat10/10/2020, Until Sat10/10/2021, Normal Her plan will be to get an MRI brain since we do not have one and since there was some nonspecific description about too much water on the brain. It would be useful to have an MRI brain I will then follow-up with a video visit after that is completed. I spent 21 total minutes on this visit today, including the time in preparation, and the actual timeduring the video. RATORY CHIEF documented in this encounter Plan of Treatment Scheduled Referrals Name Type Priority Associated Diagnoses Order S chedule Video anyplace Outpatient Referral Routine Focal Complex Parti al Expected: visit Epilepsy Not 10/10/2020 Intractable Without (Approxi mate), Status Epilepticus Expires: (HCC) 10/10/2023 documented as of this encounter Visit Diagnoses Diagnosis Focal Complex Partial Epilepsy Not Intra ctable Without Status Epilepticus (HCC) - Primary documented in this encounter
--- OUTSIDE RECORDS SUMMARY | 2022-06-18 08:44 | XMS_ITS | Encounter Summary ---
:1985 Author Organization [facility] Address [address] [place] [address] Care Team Providers Name Role Phone Unavailable Primary Care Provider Unavailable Reason for Visit Reason Comments Med Refill Encounter Details Date Type Department Care Team Description 10/13/2021 Refill Department of Neurology in Rui Godinez M.D., Med Refill [place], [place] M.P.H. [address] [place] [address] [address] [place] [address] [phone] (Wo rk) Social History Tobacco Use Types [...] you attend roman catholic or Never 2021 episcopal services? Do you belong to any clubs [...] place to sleep or slept in a intermediate (including now)? Education Answer Date Recorded What is the highest level of school Associate degree: gómez wyatt, 10/10/2020 you have completed or the highest technical, or vocational p natan degree you have received? Sex Assigned at Date Recorded Female 02/02/2019 3:06 PM CDT documented as of this encounter Miscellaneous Notes Telephone Encounter - Karina Amanda M.D. - 10/16/2021 9:43 AM BIRTH ATTENDANT I approved short term refills. Pt has only seen Neurology in our clinic. I will defer to your team for longer term refills or have her set up PCP in [place]. H ATTENDANT documented in this encounter Plan of Treatment Not on filedocumented as of this encounter Visit Diagnoses Not on filedocumented in this encounter
--- OUTSIDE RECORDS SUMMARY | 2022-06-18 08:44 | XMS_ITS | Encounter Summary ---
:1985 Author Organization [facility] Address [address] [place] [address] Care Team Providers Name Role Phone Unavailable Primary Care Provider Unavailable Reason for Visit Reason Comments Med Refill Encounter Details Date Type Department Care Team Description 05/08/2021 Refill Department of Neurology in Rui Godinez M.D., Med Refill [place], [place] M.P.H. [address] [place] [address] [address] [place] [address] [phone] (Wo rk) Social History Tobacco Use Types [...] or relatives? How often do you attend sabianism or Never 2021 jainism services? Do you belong to any clubs or No 11/08/2021 organizations such as sabianism groups, unions, fraternal or athletic groups, or [...] place to sleep or slept in a penitentiary (including now)? Education Answer Date Recorded What [...]
--- OUTSIDE RECORDS SUMMARY | 2022-06-18 08:44 | XMS_ITS | Encounter Summary ---
:1985 Author Organization [facility] Address [address] [place] [address] Care Team Providers Name Role Phone Unavailable Primary Care Provider Unavailable Encounter Details Date Type Department Care Team Description 02/01/2021 Orders Only [facility] PCP TH Sa rima Valentin M.D. [address] [place], [place] [phone] (Wo rk) Social History Tobacco Use Types [...] or relatives? How often do you attend sikh or Never 2021 mu-ism services? Do you belong to any clubs or No 11/08/2021 organizations such as sikh groups, unions, fraternal or athletic groups, or [...] place to sleep or slept in a skilled nursing (including now)? Education Answer Date Recorded What [...]
--- OUTSIDE RECORDS SUMMARY | 2022-06-18 08:44 | XMS_ITS | Encounter Summary ---
:1985 Author Organization [facility] Address [address] [place] [address] Care Team Providers Name Role Phone Unavailable Primary Care Provider Unavailable Encounter Details Date Type Department Care Team Description 12/22/2019 Clinical Communication Department of Sleep Rui Godinez, Medicine in Karyn Gee, M.P .H. [place] [address] [place] [address] Social History Tobacco Use Types Packs/Day [...] or relatives? How often do you attend congregation or Never 2021 orthodoxy services? Do you belong to any clubs or No 11/08/2021 organizations such as congregation groups, unions, fraternal or athletic groups, or [...] place to sleep or slept in a [facility] (including now)? Education Answer Date Recorded What is the highest level of school Associate degree: [employer] program 08/25/2019 you have completed or the highest degree you have received? Sex Assigned at Date Recorded Female 02/02/2019 3:06 PM CDT documented as of this encounter Miscellaneous Notes Telephone Encounter - Anayeli Garcia, C.M.A. - 12/25/2019 2:47 PM CDT Spoke with [facility] in [place] regarding patient's prescription for lamotrigine. The newest prescription they received had DAW1, they were wondering if they could dispense the generic. Informed pharmacist from the communication we have regarding this, it was meant to be able to dispense generic. Pharmacist is going to change that on prescription. Telephone Encounter - Zaida Goss - 12/25/2019 1:12 PM CDT Reason for Communication: Patient is calling in regards to her generic script. Stating [facility] has not received it. Patient will be calling [facility], again. Current Can Nursing/Provider leave a detailed message: Action Needed: Please review and advise. Name of Medication (if relevant): Telephone Encounter - Dena Mendiola L.P.N. - 12/23/2019 10:28 AM CDT Patient is requesting the following information: New rx for Lamictal in generic form to be sent to [facility] in [place] PLAN The following information was provided : She is informed that this has been done. Information: patient/caller able to repeat back in their own words The following references were used: none Addendum Note - Rui Godinez M.D., M.P.H. - 12/23/2019 10:06 AM CDT Addended by: CRUZ GODINEZ on: 12/23/2019 10:06 AM Modules accepted: Orders Telephone Encounter - Diana Candelario - 12/22/2019 1:19 PM CDT Reason for Communication: Patient calling in and states that the rx for Lamictal was sent to her oldpharmacy and patient is wondering if Dr. Godinez would be able to send in the generic of this medication over to the [facility] pharmacy in [place] instead. Please advise. Current Can Nursing/Provider leave a detailed message: Did the patient refuse triage through Nurse line? (for symptom based concerns): Action Needed: Send generic to [facility] in [place] Name of Medication (if relevant): Lamictal (Generic form) documented in this encounter Plan of Treatment Not on filedocumented as of this encounter Visit Diagnoses Not on filedocumented in this encounter
--- OUTSIDE RECORDS SUMMARY | 2022-06-18 08:44 | XMS_ITS | Encounter Summary ---
:1985 Author Organization [facility] Address [address] [place] [address] Care Team Providers Name Role Phone Unavailable Primary Care Provider Unavailable Encounter Details Date Type Department Care Team Description 12/23/2019 Clinical Communication Department of Neurology Rui Godinez, in [facility] kandis Boss, M.P.H. [address] [place] [address] [address], [place] [address] Social History Tobacco Use Types Packs/Day [...] or relatives? How often do you attend latter-day or Never 2021 taoist services? Do you belong to any clubs or No 11/08/2021 organizations such as latter-day groups, unions, fraternal or athletic groups, or [...] place to sleep or slept in a fci (including now)? Education Answer Date Recorded What is the highest level of school Associate degree: [employer] program 08/25/2019 you have completed or the highest degree you have received? Sex Assigned at Date Recorded Female 02/02/2019 3:06 PM CDT documented as of this encounter Plan of Treatment Not on filedocumented as of this encounter Visit Diagnoses Not on filedocumented in this encounter
--- OUTSIDE RECORDS SUMMARY | 2022-06-18 08:44 | XMS_ITS | Encounter Summary ---
:1985 Author Organization [facility] Address [address] [place] [address] Care Team Providers Name Role Phone Unavailable Primary Care Provider Unavailable Reason for Visit Reason Comments Med Refill Encounter Details Date Type Department Care Team Description 08/08/2021 Refill Department of Neurology in Rui Godinez M.D., Med Refill [place], [place] M.P.H. [address] [place] [address] [address] [place] [address] [phone] (Wo rk) Social History Tobacco Use Types [...] or relatives? How often do you attend jain or Never 2021 synagogue services? Do you belong to any clubs or No 11/08/2021 organizations such as jain groups, unions, fraternal or athletic groups, or [...]
--- OUTSIDE RECORDS SUMMARY | 2022-06-18 08:44 | XMS_ITS | Encounter Summary ---
:1985 Author Organization [facility] Address [address] [place] [address] Care Team Providers Name Role Phone Unavailable Primary Care Provider Unavailable Reason for Visit Reason Comments Med Refill Encounter Details Date Type Department Care Team Description 10/27/2020 Refill Department of Neurology in Rui Godinez M.D., Med Refill [place], [place] M.P.H. [address] [place] [address] [address] [place] [address] [phone] (Wo rk) Social History Tobacco Use Types [...] or relatives? How often do you attend jew or Never 2021 adventist services? Do you belong to any clubs or No 11/08/2021 organizations such as jew groups, unions, fraternal or athletic groups, or [...] place to sleep or slept in a jail (including now)? Education Answer Date Recorded What [...]
--- OUTSIDE RECORDS SUMMARY | 2022-06-18 08:44 | XMS_ITS | Encounter Summary ---
:1985 Author Organization [facility] Address [address] [place] [address] Care Team Providers Name Role Phone Unavailable Primary Care Provider Unavailable Reason for Visit Reason Onset Date Comments Med Refill 11/26/2019 Encounter Details Date Type Department Care Team Description 11/26/2019 Refill Department of Sleep Medicine in Rui Godinez M.D., Med Refill [place], [place] M.P.H. [address] [place] [address] [place] [address] (Wo rk) Social History Tobacco [...] or relatives? How often do you attend mormon or Never 2021 druze services? Do you belong to any clubs or No 11/08/2021 organizations such as mormon groups, unions, fraternal or athletic groups, or [...] the highest level of school Associate degree: [employer] program 08/25/2019 you have completed or the highest degree you have received? Sex Assigned at Date Recorded Female 02/02/2019 3:06 PM CDT documented as of this encounter Miscellaneous Notes Telephone Encounter - Sally Wallis L.P.N. - 11/26/2019 11:22 AM VEHICLE RETURN ASSOCIATE Contacted patient. Confirmed with patient Directions for Lamictal. Stated that she is taking Lamictal 200 mg one tablet two times a day. CLE RETURN ASSOCIATE Telephone Encounter - Liz Crockett - 11/26/2019 8:54 AM CST Images from the original note were not included. Name of Medication: Lamotrigine ?? Primary Provider: Rui Godinez M.D. ?? Strength: 200 mg ?? Frequency: Take 1 tablet twice a day ?? Pharmacy (include location): [facility] in [place] [phone] ?? Documentation CLE RETURN ASSOCIATE documented in this encounter Plan of Treatment Not on filedocumented as of this encounter Visit Diagnoses Not on filedocumented in this encounter
--- OUTSIDE RECORDS SUMMARY | 2022-06-18 08:44 | XMS_ITS | Encounter Summary ---
:1985 Author Organization [facility] Address [address] [place] [address] Care Team Providers Name Role Phone Unavailable Primary Care Provider Unavailable Reason for Visit Reason Comments Med Refill Encounter Details Date Type Department Care Team Description 01/30/2021 Refill Department of Neurology in Rui Godinez M.D., Med Refill [place], [place] M.P.H. [address] [place] [address] [address] [place] [address] [phone] (Wo rk) Social History Tobacco Use Types [...] or relatives? How often do you attend baptist or Never 2021 adventist services? Do you belong to any clubs or No 11/08/2021 organizations such as baptist groups, unions, fraternal or athletic groups, or [...] to sleep or slept in a senior living (including now)? Education Answer Date Recorded What [...]
--- OUTSIDE RECORDS SUMMARY | 2022-06-18 08:44 | XMS_ITS | Clinical Summary ---
:1985 Author Organization [facility] Address [address] [place] [id number] Care Team Providers Name Role Phone Unavailable Primary Care Provider Unavailable Source Comments Patient records contain information from all sites at [facility]. For routine questions regarding patient records, call [phone] during business hours, M-F 8:00 AM - 5:00 PM Central Time. Record requests for emergency care only can be directed to [phone] at any time.[facility] Allergies No known active allergies Medications Medication Sig Dispensed Refills Start Date End Date Status nitrofurantoin Take 1 capsule 2 01/15/2019 Active monohydrate by mouth daily. (MACROBID) 100 mg capsule valACYclovir Take 1 tablet by 0 01/26/2019 Active (VALTREX) 500 mg mouth 2 (two) tablet times a day. levETIRAcetam Take 1 tablet 180 tablet 0 11/08/2021 Active (KEPPRA) 1,000 mg (1,000 mg total) tablet by mouth 2 (two) times a day. Please establish a new primary care provider at the clinic lamoTRIgine Take 2 tablets 360 tablet 3 11/08/2021 11/08/2022 Active (LaMICtaL) 200 mg (400 mg total) tablet by mouth 2 (two) times a day. DAW1 acetaZOLAMIDE Take 1 capsule 180 capsule 3 11/08/2021 Active (DIAMOX) 500 mg 12 hr (500 mg total) capsule by mouth 2 (two) times a day. folic acid 1 mg Take 1 tablet 90 tablet 3 11/08/2021 3 Active tablet (1,000 mcg total) by mouth daily. 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 Epilepsy Not In tractable Without Status Epilepticus (HCC) (Primary Dx) from Last 3 Months Social History Tobacco Use Types Packs/Day Years [...] or relatives? How often do you attend episcopal or Never 2021 taoism services? Do you belong to any clubs or No 11/08/2021 organizations such as episcopal groups, unions, fraternal or athletic groups, or [...] place to sleep or slept in a halfway (including now)? Education Answer Date Recorded What is the highest level of school you have Some college, n o degree 11/08/2021 completed or the highest degree you have received? Estimated Date of Delivery Comments Yes 02/28/2019 Sex Assigned at Date Recorded Female 02/02/2019 3:06 PM CDT Last Filed Vital Signs Vital Sign Reading Time Taken Comments Blood Pressure 116/74 08/25/2019 2:01 PM HARP REGULATOR Pulse 76 08/25/2019 2:01 PM HARP REGULATOR Temperature - - Respiratory Rate - - Oxygen Saturation - - Inhaled Oxygen Concentration - - Weight 84.2 kg (185 lb 10 oz) 08/25/2019 2:01 PM HARP REGULATOR Height - - Body Mass Index - - Plan of Treatment Health Maintenance Due Date Last Done Comments Cervical Cancer Screening 1985 Creatinine Level 1987 HIV Screening 1987 Hepatitis B Vaccines (1 of 1987 3 - 3-dose series) Hepatitis C Screening 1987 Potassium Level 1987 Sodium Level 1987 COVID-19 Vaccine (3 - 09/14/2021 04/14/2021, 03/24/2021 Booster for Pfizer series) Depression Screening 10/07/2021 (Annual PHQ-2) Influenza Vaccine (#1) 2022 07/25/2021, 07/16/2019, 08/21/2018 DTaP,Tdap,and Td Vaccines 12/18/2028 12/18/2018, 03/17/2016 , (7 - Td or Tdap) 04/23/2009, Additional history exists Pneumococcal vaccine (0-64 Aged Out No lo nger eligible years) based on patient 's age to complete this topic Insurance Payer Benefit Plan / Subscriber ID Effective Dates Phone Addre ss Type Group BLUE CROSS ANTHMARIO BLUE [id number] 2018-Manuel [phone] PO KAREN X [id number] PPO BLUE [facility] ACCESS t [address] [place] [address]
--- OUTSIDE RECORDS SUMMARY | 2022-06-18 08:44 | XMS_ITS | Encounter Summary ---
:1985 Author Organization [facility] Address [address] [place] [address] Care Team Providers Name Role Phone Unavailable Primary Care Provider Unavailable Encounter Details Date Type Department Care Team Description 12/24/2019 Clinical Communication Department of Sleep Rui Godinez, Medicine in Karyn Gee, M.P .H. [place] [address] [place] [phone] Social History Tobacco Use Types Packs/Day [...] or relatives? How often do you attend congregational or Never 2021 church services? Do you belong to any clubs or No 11/08/2021 organizations such as congregational groups, unions, fraternal or athletic groups, or [...] Miscellaneous Notes Telephone Encounter - Anayeli Garcia, C.M.AMichael - 12/25/2019 2:44 PM CDT See communication note from 12/25/2019 regarding this. Telephone Encounter - Marya Colon - 12/24/2019 2:42 PM CDT Reason for Communication: Keep entering Lamo [id number] mg And the patient doesn't want this. She wants the generic and then she wants the brand name. Pharmacist would like a call to talk about the situation. Current Can Nursing/Provider leave a detailed message: Did the patient refuse triage through Nurse line? (for symptom based concerns): Action Needed: [facility] Name of Medication (if relevant): Lamo TRIgine documented in this encounter Plan of Treatment Not on filedocumented as of this encounter Visit Diagnoses Not on filedocumented in this encounter
--- OUTSIDE RECORDS SUMMARY | 2022-06-18 08:44 | XMS_ITS | Encounter Summary ---
:1985 Author Organization [facility] Address [address] [place] [address] Care Team Providers Name Role Phone Unavailable Primary Care Provider Unavailable Encounter Details Date Type Department Care Team Description 11/23/2020 Orders Only [facility] Colt Martinez, Pcp [address] [place] [phone] Social History Tobacco Use Types Packs/Day Years [...] do you attend baptist or Never 2021 taoism services? Do you [...] place to sleep or slept in a snf (including now)? Education Answer Date Recorded What is the highest level of school Associate degree: gómez wyatt, 10/10/2020 you have completed or the highest technical, or vocational robert gama degree you have received? Sex Assigned at Date Recorded Female 02/02/2019 3:06 PM CDT documented as of this encounter Plan of Treatment Not on filedocumented as of this encounter Visit Diagnoses Not on filedocumented in this encounter
--- NOTE | 2022-06-18 08:45 | CRLHL7_ITS ---
For Patients: As a result of the Century Cures Act, medical imaging exams and procedure reports are released immediately into your electronic medical record. You may view this report before your referring provider. If you have questions, please contact your health care provider. INDICATION: Evaluate anatomy. COMPARISON: 04/12/2022, 03/19/2022 TECHNIQUE: Real time sevilla scale imaging of the fetus was performed as well as color Doppler analysis of the umbilical vessels. FINDINGS: Sonographic imaging demonstrates a single living intrauterine gestation. Fetus demonstrates a regular cardiac rate of 131 beats per minute. Fetus has a breech position. The placenta lies anteriorly without evidence of placenta previa. The edge of the placenta is located 8.1 cm from the internal cervical os amniotic fluid volume appears normal. Single deepest vertical pocket: 4.6 cm. The cervix is closed and measures 2.5 cm in length. The composite ultrasound gestational age is calculated at 20 weeks 4 days with an estimated sonographic due date of 11/01/2022. The estimated weight is 362 grams which lies at the 83rd %. The following biometric measurements were obtained: Biparietal diameter: 4.7 cm/20 weeks 1 day 65th% Head circumference: 17.9 cm/20 weeks 2 days 66th% Abdominal circumference: 16.5 cm/21 weeks 4 days 91st% Femur length: 3.1 cm/19 weeks 3 days 28th% The HC/AC ratio measures: 1.08 range (1.07-1.25) On anatomic survey, there is a normal appearance of the cerebral ventricles, cavum septi pellucidi, cisterna magna and cerebellum. The nose, lips, and facial profile appear normal. The cervical, thoracic and lumbar spine are well visualized and appear normal. There is a normal four-chamber heart view and the left and right ventricular outflow tracts appear normal. The diaphragm and stomach appear normal. The kidneys and bladder also appear normal. There is a normal three-vessel cord and cord insertion site. The four extremities appear normal. IMPRESSION: Normal OB ultrasound exam with concordance of clinical and sonographic dating. No intrinsic abnormalities noted on anatomic survey. Dictated by Chapo Vickers MD @ 06/18/2022 10:43:28 AM (Electronically Signed)
--- OUTSIDE RECORDS SUMMARY | 2022-06-18 08:45 | XMS_ITS | Encounter Summary ---
:1985 Author Organization [facility] Address [address] [place] [address] Care Team Providers Name Role Phone Unavailable Primary Care Provider Unavailable Reason for Visit Reason Onset Date Comments Rx Prior Authorization 10/22/2018 Lamictal Encounter Details Date Type Department Care Team Description 10/22/2018 Clinical Department of Angelica Wallis Prior Communication Neurology in Sally Elena, Authorization Lindsay Gee (Lamictal) [place] [address] [place] [phone] Social History Tobacco Use Types Packs/Day Years Used Date Smoking Tobacco: Never Assessed Alcohol Habits Answer Date Recorded How often [...] or relatives? How often do you attend oriental orthodox or Never 2021 scientology services? Do you belong to any clubs or No 11/08/2021 organizations such as oriental orthodox groups, unions, fraternal or athletic groups, or [...] or slept in a halfway (including now)? Sex Assigned at Date Recorded Female 02/02/2019 3:06 PM CDT documented as of this encounter Miscellaneous Notes Telephone Encounter - Sally Wallis L.P.N. - 10/22/2018 4:12 PM EXPELLER WORKER Patient states she has faxed the form to Dr. Godinez. She also provided the phone number that Dr. Godinez or a nurse needs to call. , department [employer]. Please advise Form has been completed and faxed to . LLER WORKER documented in this encounter Plan of Treatment Not on filedocumented as of this encounter Visit Diagnoses Not on filedocumented in this encounter
--- OUTSIDE RECORDS SUMMARY | 2022-06-18 08:45 | XMS_ITS | Encounter Summary ---
:1985 Author Organization [facility] Address [address] [place] [address] Care Team Providers Name Role Phone Unavailable Primary Care Provider Unavailable Reason for Visit Reason Onset Date Comments Rx issues 11/18/2018 Encounter Details Date Type Department Care Team Description 11/18/2018 Clinical Communication Department of Neurology Rui Godinez, Rx issues in [facility] kandis Boss, M.P.H. [address] [place] [address] [place] [phone] Social History Tobacco Use Types Packs/Day [...] or relatives? How often do you attend voodoo or Never 2021 voodoo services? Do you belong to any clubs or No 11/08/2021 organizations such as voodoo groups, unions, fraternal or athletic groups, or [...] place to sleep or slept in a long term (including now)? Sex Assigned at Date Recorded Female 02/02/2019 3:06 PM CDT documented as of this encounter Miscellaneous Notes Telephone Encounter - Dena Mendiola L.P.N. - 11/18/2018 10:55 AM FITTER AND TURNER I called Trinity, She is needing refills of her Keppra and Actazolmide ER. I confirmed the dosage that she is taking of each and have pended them to you. I spoke to her about the Levetiracetam and pharmacy offers that she can get a short supply of generic or buy the brand name at $2000. Paperwork was re faxed this am for PA for this. She chooses to have2 weeks worth of the Levetiracetam refilled and will await PA reply. She also is informed that Dr. Godinez recommends meeting with Working Second Hand and Pharmacist to see if help can be obtained for the high out of pocket cost. Patient agrees to this. ER AND TURNER Telephone Encounter - Sally Wallis L.P.N. - 11/18/2018 10:13 AM FITTER AND TURNER Contacted [facility]. Informed that I called the number provided for prior auth exception request form at . Forms had been faxed on 10/21/18. Was told to refax and put urgent on the request. Fax to . ER AND TURNER Telephone Encounter - Zahra Perez - 11/18/2018 7:32 AM CST Patient calling regarding Rx has to be a name brand. Please call back [phone] ER AND TURNER documented in this encounter Plan of Treatment Not on filedocumented as of this encounter Visit Diagnoses Diagnosis Seizure (HCC) - Primary documented in this encounter
--- OUTSIDE RECORDS SUMMARY | 2022-06-18 08:45 | XMS_ITS | Encounter Summary ---
:1985 Author Organization [facility] Address [address] [place] [address] Care Team Providers Name Role Phone Unavailable Primary Care Provider Unavailable Encounter Details Date Type Department Care Team Description 10/20/2018 Orders Only Department of Rui Godinez, Colleen on Related Neurology in Karyn Bose, M.P .H. 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 How often do you attend uatsdin or Never 2021 methodist services? Do you belong to any clubs or No 11/08/2021 organizations such as uatsdin groups, unions, fraternal or athletic groups, or [...] place to sleep or slept in a correction (including now)? 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
--- OUTSIDE RECORDS SUMMARY | 2022-06-18 08:45 | XMS_ITS | Encounter Summary ---
:1985 Author Organization [facility] Address [address] [place] [address] Care Team Providers Name Role Phone Unavailable Primary Care Provider Unavailable Reason for Visit Reason Onset Date Comments Medical Information 11/18/2018 Encounter Details Date Type Department Care Team Description 11/18/2018 Clinical Department of Francisca Godinez Medical Communication Family MedicineKassy M.D. Information [facility], [address] in [facility] [phone] [address] [phone] [place], [place] (Work) [phone] Social History Tobacco Use Types Packs/Day [...] or relatives? How often do you attend zoroastrian or Never 2021 latter day services? Do you belong to any clubs or No 11/08/2021 organizations such as zoroastrian groups, unions, fraternal or athletic groups, or [...] or slept in a chcf (including now)? Sex Assigned at Date Recorded Female 02/02/2019 3:06 PM CDT documented as of this encounter Miscellaneous Notes Telephone Encounter - Sally Wallis L.P.N. - 11/18/2018 2:40 PM GREASE MAKER Allamuchy notes are under Document Viewer. SE MAKER Telephone Encounter - Vincenzo Spivey - 11/18/2018 11:28 AM CST Reason for Communication: [facility] in [place] called and they need a prior Authorization for the medication, Keedmondra please advise. Current Can Nursing/Provider leave a detailed message: Did the patient refuse triage through Nurse line? (for symptom based concerns) Action Needed: Name of Medication (if relevant): rodger SE MAKER documented in this encounter Plan of Treatment Not on filedocumented as of this encounter Visit Diagnoses Not on filedocumented in this encounter
--- OUTSIDE RECORDS SUMMARY | 2022-06-18 08:45 | XMS_ITS | Encounter Summary ---
:1985 Author Organization [facility] Address [address] [place] [address] Care Team Providers Name Role Phone Unavailable Primary Care Provider Unavailable Reason for Referral Outpatient (Routine) - Closed Specialty Diagnoses / Procedures Referred By Contact Refer red To Contact Neurology Rui Godinez M.D ., M.P.H. [facility] [address] [phone] Referral ID Status Reason Start Date Expiration Date Visits Requ ested Visits Authorized [id number] Closed 08/25/2019 08/24/2020 1 1 AND HYDRONIC BALANCING TECHNICIAN Reason for Visit Reason Comments Seizures Outpatient (Routine) - Closed Specialty Diagnoses / Procedures Referred By Contact Refer red To Contact Neurology Rui Godinez M.D ., M.P.H. [facility] [address] [phone] Referral ID Status Reason Start Date Expiration Date Visits Requ ested Visits Authorized [id number] Closed 02/02/2019 02/02/2020 1 1 Encounter Details Date Type Department Care Team Description 08/25/2019 Office Visit Department of Rui Godinez, Focal Comp tripp Partial Neurology in Karyn Bose, M.P .H. Epilepsy Not [place] [address] [place] [address] Intractable Without [address] [place], [place] Status Epilepticus [facility] [place] [id number] ([facility]) (Primary Dx) [phone] Social History Tobacco Use [...] or relatives? How often do you attend judaism or Never 2021 gnosticism services? Do you belong to any clubs or No 11/08/2021 organizations such as judaism groups, unions, fraternal or athletic groups, or [...] highest level of school Associate degree: academ [employer] program 08/25/2019 you have completed or the highest degree you have received? Sex Assigned at Date Recorded Female 02/02/2019 3:06 PM CDT documented as of this encounter Last Filed Vital Signs Vital Sign Reading Time Taken Comments Blood Pressure 116/74 08/25/2019 2:01 PM AIR AND HYDRONIC BALANCING TECHNICIAN Pulse 76 08/25/2019 2:01 PM AIR AND HYDRONIC BALANCING TECHNICIAN Temperature - - Respiratory Rate - - Oxygen Saturation - - Inhaled Oxygen Concentration - - Weight 84.2 kg (185 lb 10 oz) 08/25/2019 2:01 PM AIR AND HYDRONIC BALANCING TECHNICIAN Height - - Body Mass Index - - documented in this encounter Progress Notes Rui Godinez M.D., M.P.H. - 08/25/2019 2:00 PM CST SUBJECTIVE CHIEF COMPLAINT / REASON FOR VISIT Trinity Ramirez is a 34 y.o. female who presents for evaluation of Seizures. HISTORY OF PRESENT ILLNESS Very pleasant 34-year-old patient has history of seizures but is remained seizure-free for over a year on present therapy. In my 1st note I detailed the her prior neurologist up in the [facility] who had evaluated her with neuro imaging and EEGs. I have never been able to obtain those records but thepatient tells me that they were normal. She had an IUD which was removed and she became . She was able to get to the without any difficulty. She has tried to obtain brand name lamotrigine but this is proved to be quite challenging. The child is now 6-week-old and growing well and doing well. The patient is no longer breast feedingand continuing with her levetiracetam and lamotrigine therapy. She is also on Diamox 500 mg one p.o.b.i.d. She denies any complaints and is content with how she is doing from a seizure standpoint. She is here for follow-up and to get refills. She denies symptoms of toxicity. No past medical history on file. No past surgical history on file. MEDICATIONS: Current Outpatient Medications: ??? acetaZOLAMIDE (DIAMOX) 500 mg 12 hr capsule, Take 1 capsule (500 mg total) by mouth 2 (two) times a day., Disp: 180 capsule, Rfl: 3 ??? LAMICTAL 200 mg tablet, Take 2 tablets (400 mg total) by mouth 2 (two) times a day. DAW1, Disp: 360 tablet, Rfl: 3 ??? levETIRAcetam (KEPPRA) 1,000 mg tablet, Take 1 tablet (1,000 mg total) by mouth 2 (two) times a day., Disp: 180 tablet, Rfl: 3 ??? folic acid 1 mg tablet, Take 1 tablet by mouth daily., Disp: , Rfl: 3 ??? nitrofurantoin monohydrate (MACROBID) 100 mg capsule, Take 1 capsule by mouth daily., Disp: , Rfl: 2 ??? valACYclovir (VALTREX) 500 mg tablet, Take 1 tablet by mouth 2 (two) times a day., Disp: , Rfl: 0 ALLERGY: No Known Allergies No family history on file. Social History Socioeconomic History ??? Marital status: Spouse name: Not on file ??? Number of children: Not on file ??? Years of education: Not on file ??? Highest education level: Associate degree: academic program Occupational History ??? Not on file Social Needs ??? Financial resource strain: Not very hard ??? Food insecurity: Worry: Never true Inability: Never true ??? Transportation needs: Medical: No Non-medical: No Tobacco Use ??? Smoking status: Never Smoker ??? Smokeless tobacco: Never Used Substance and Sexual Activity ??? Alcohol use: No Frequency: 2-4 times a month Drinks per session: 1 or 2 Binge frequency: Less than monthly ??? Drug use: Not on file ??? Sexual activity: Not on file Lifestyle ??? Physical activity: Days per week: 4 days Minutes per session: 30 min ??? Stress: Rather much Relationships ??? Social connections: Talks on phone: More than three times a week Gets together: More than three times a week Attends gnosticism service: Never Active member of club or organization: No Attends meetings of clubs or organizations: Patient refused Relationship status: ??? Intimate partner violence: Fear of current or ex partner: Not on file Emotionally abused: Not on file Physically abused: Not on file Forced sexual activity: Not on file Other Topics Concern ??? Not on file Social History Narrative ??? Not on file OBJECTIVE Vitals: 08/25/19 1401 BP: 116/74 BP Location: Right arm Patient Position: Sitting Cuff Size: Regular Pulse: 76 Weight: 84.2 kg PHYSICAL EXAM COGNITION: Alert and oriented x 4. CRANIAL NERVES: display trimmer II-XII intact and symmetric. No diplopia or blurred vision MOTOR: Full strength throughout the upper and lower extremities bilaterally both proximally and distally. Normal tone. No pronator drift. No tremor. REFLEXES: Normal and symmetric at the biceps, triceps, brachioradialis, knees, and ankles. SENSORY: normal sensation to touch CEREBELLAR: ARMs-normal GAIT: Normal, pull test is negative She shows no signs of toxicity. Impression: Encounter Diagnoses Name Primary? 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 She has her IUD back in place and is thus not on folic acid. We talked about the importance of going back on folic acid were she to have that a taking out again. She has been seizure-free for over a year and I will see her back in a year's long she continues to do well. Total time with the patient today was 25 minutes and more than half was counseling. Rui Godinez M.D., M.P.H. AND HYDRONIC BALANCING TECHNICIAN documented in this encounter Plan of Treatment Scheduled Referrals Name Type Priority Associated Diagnoses Order S [facility] Neurology office Outpatient Referral Routine Expe cted: visit (clinic) 08/25/2020 (Approximate), Expires: 08/25/2022 documented as of this encounter Visit Diagnoses Diagnosis Focal Complex Partial Epilepsy Not Intra ctable Without Status Epilepticus (HCC) - Primary documented in this encounter
--- OUTSIDE RECORDS SUMMARY | 2022-06-18 08:45 | XMS_ITS | Encounter Summary ---
:1985 Author Organization [facility] Address [address] [place] [address] Care Team Providers Name Role Phone Unavailable Primary Care Provider Unavailable Reason for Referral Outpatient (Routine) - Closed Specialty Diagnoses / Procedures Referred By Contact Refer red To Contact Neurology Rui Godinez M.D ., M.P.H. [facility] [address] [place] [address] Referral ID Status Reason Start Date Expiration Date Visits Requ ested Visits Authorized [id number] Closed 02/02/2019 02/02/2020 1 1 Reason for Visit Reason Comments Seizures Follow-up Appointment Request (Routine) - Closed Specialty Diagnoses / Procedures Referred By Contact Refer red To Contact Neurology Referral ID Status Reason Start Date Expiration Date Visits Requ ested Visits Authorized [id number] Closed 01/07/2019 01/07/2020 1 Encounter Details Date Type Department Care Team Description 02/02/2019 Comprehensive Visit Department of Rui Godinez 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 [address] [facility] [address] [place], [place] [phone] [address] Social History Tobacco Use Types Packs/Day [...] or relatives? How often do you attend jainism or Never 2021 caodaism services? Do you belong to any clubs or No 11/08/2021 organizations such as jainism groups, unions, fraternal or athletic groups, or [...] or slept in a mcfp (including now)? Sex Assigned at Date Recorded Female 02/02/2019 3:06 PM CDT documented as of this encounter Last Filed Vital Signs Vital Sign Reading Time Taken Comments Blood Pressure 118/86 02/02/2019 2:52 PM CDT Pulse 80 02/02/2019 2:52 PM CDT Temperature - - Respiratory Rate - - Oxygen Saturation - - Inhaled Oxygen Concentration - - Weight 97.1 kg (214 lb 1.1 oz) 02/02/2019 2:52 PM CDT Height - - Body Mass Index - - documented in this encounter Progress Notes Rui Godinez M.D., M.P.H. - 02/02/2019 3:15 PM CDT SUBJECTIVE CHIEF COMPLAINT / REASON FOR VISIT Trinity Ramirez is a 33 y.o. female who presents for evaluation of Seizures and Follow-up. HISTORY OF PRESENT ILLNESS 33-year-old patient is known to me from visits in [facility] where she was planning to become . Her history includes having had seizures started at age 89 and were both complex partial and convulsive. She had seen Dr. Ernestina Shah and Dr.Joanne Barnhart EEGs and MRIs were obtained. 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 She was on a see does 0 limb I would and has remained on this. I reviewed with her that this was a category C medication. Her Keppra level from 01/17/2018 was 12 with a range [id number] and lamotrigine serum concentration was 4.8 with a range being 2.5-15 and [facility] I gave her handout from [facility] on in epilepsy as she contemplating having her Mirena IUD removed and to become . She was on Keppra 1000 mg b.i.d. and lamotrigine 200 mg b.i.d.. At today's visit she remains on 1000 mg of levetiracetam and is on 400 mg b.i.d. of lamotrigine or twice the previous dose. Her lamotrigine serum concentration was checked on January 26 at [facility] in level was 8.4 micro g per L with range being 2.5-15 and her levetiracetam was 32.8. She denies any problems with her medications and she is also not having any seizures. Her Neurological Disorders Depression Inventory for Epilepsy score today is 11. She plans to deliveron the of next month. She asks not to come back and see me often because she says the co-pay isvery expensive. I did review with her that they would need to cut her lamotrigine back to 200 mg b.i.d. immediately upon delivery and they both verbalized understanding of that. No past medical history on file. No past surgical history on file. MEDICATIONS: Current Outpatient Prescriptions: ??? acetaZOLAMIDE (DIAMOX) 500 mg 12 hr capsule, Take 1 capsule (500 mg total) by mouth 2 (two) times a day., Disp: 180 capsule, Rfl: 3 ??? folic acid 1 mg tablet, Take 1 tablet by mouth daily., Disp: , Rfl: 3 ??? LAMICTAL 200 mg tablet, Take 2 tablets (400 mg total) by mouth 2 (two) times a day. DAW1, Disp: 120 tablet, Rfl: 11 ??? levETIRAcetam (KEPPRA) 1,000 mg tablet, Take 1 tablet (1,000 mg total) by mouth 2 (two) times a day., Disp: 180 tablet, Rfl: 3 ??? nitrofurantoin monohydrate (MACROBID) 100 mg capsule, Take 1 capsule by mouth daily., Disp: , Rfl: 2 ??? valACYclovir (VALTREX) 500 mg tablet, Take 1 tablet by mouth 2 (two) times a day., Disp: , Rfl: 0 ALLERGY: No Known Allergies No family history on file. Social History Social History ??? Marital status: Spouse name: N/A ??? Number of children: N/A ??? Years of education: N/A Occupational History ??? Not on file. Social History Main Topics ??? Smoking status: Never Smoker ??? Smokeless tobacco: Never Used ??? Alcohol use No ??? Drug use: Unknown ??? Sexual activity: Not on file Other Topics Concern ??? Not on file Social History Narrative ??? No narrative on file OBJECTIVE Vitals: 02/02/19 1452 BP: 118/86 BP Location: Right arm Patient Position: Sitting Cuff Size: Regular Pulse: 80 Weight: 97.1 kg PHYSICAL EXAM COGNITION: Alert and oriented x 4. CRANIAL NERVES: part time II-XII intact and symmetric. MOTOR: Full strength throughout the upper and lower extremities bilaterally both proximally and distally. Normal tone. No pronator drift. No tremor. REFLEXES: Normal and symmetric at the biceps, triceps, brachioradialis, knees, and ankles. SENSORY: normal sensation to touch CEREBELLAR: ARMs-normal GAIT: Normal Impression: Encounter Diagnoses Name Primary? 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 Not Reason For Visit Patient remained seizure-free on generic lamotrigine and levetiracetam. Her levels are good and she is on folic acid and a CT does all might stable dose. I would recommend no changes until delivery andwhich time her lamotrigine needs to be cut back to pre doses. The [place] epilepsy Society recommends breast-feeding for women even taking anticonvulsants as the benefits to the child appeared to outweigh the risks. Total time with the patient today was 40 minutes and more than half was counseling and reviewing heroutside records. Will plan to see her back in six months. I suggested that her primary care physician could certainly right anticonvulsants for her if they were so inclined. Rui Godinez M.D., M.P.H. documented in this encounter Plan of Treatment Scheduled Referrals Name Type Priority Associated Diagnoses Order [facility] Neurology office Outpatient Referral Routine Expe cted: visit (clinic) 08/04/2019 (Approximate), Expires: 02/02/2022 documented as of this encounter Visit Diagnoses Diagnosis Focal Complex Partial Epilepsy Not Intra ctable Without Status Epilepticus (HCC) - Primary Not Reason For Visit (HCC) documented in this encounter
--- OUTSIDE RECORDS SUMMARY | 2022-06-18 08:45 | XMS_ITS | Encounter Summary ---
:1985 Author Organization [facility] Address [address] [place] [address] Care Team Providers Name Role Phone Unavailable Primary Care Provider Unavailable Reason for Visit Reason Onset Date Comments Med Refill 11/26/2019 Encounter Details Date Type Department Care Team Description 11/26/2019 Clinical Communication Department of Sleep Rui Godinez, Med Refill Medicine in Karyn Gee, M.P .H. [place] [address] [place] [phone] Social History Tobacco Use Types Packs/Day Years [...] or relatives? How often do you attend samaritan or Never 2021 islam services? Do you belong to any clubs or No 11/08/2021 organizations such as samaritan groups, unions, fraternal or athletic groups, or [...] place to sleep or slept in a assisted (including now)? Education Answer Date Recorded What is the highest level of school Associate degree: [employer] program 08/25/2019 you have completed or the highest degree you have received? Sex Assigned at Date Recorded Female 02/02/2019 3:06 PM CDT documented as of this encounter Miscellaneous Notes Telephone Encounter - Diana Candelario - 11/26/2019 8:16 AM CST Name of Medication: Lamotrigine Primary Provider: Rui Godinez M.D. 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
--- OUTSIDE RECORDS SUMMARY | 2022-06-18 08:45 | XMS_ITS | Encounter Summary ---
:1985 Author Organization [facility] Address [address] [place] [address] Care Team Providers Name Role Phone Unavailable Primary Care Provider Unavailable Encounter Details Date Type Department Care Team Description 02/18/2019 Clinical Communication Department of Rui Sommers, Medicine, Lidya Boss, M.P.H. [facility], [facility] [address] [place], [place] [address] [address] [place] [address] [facility] [phone] Social History Tobacco Use Types Packs/Day Years [...] or relatives? How often do you attend druze or Never 2021 latter-day services? Do you belong to any clubs or No 11/08/2021 organizations such as druze groups, unions, fraternal or athletic groups, or [...] slept in a nursing home (including now)? Sex Assigned at Date Recorded Female 02/02/2019 3:06 PM CDT documented as of this encounter Plan of Treatment Not on filedocumented as of this encounter Visit Diagnoses Not on filedocumented in this encounter
--- OUTSIDE RECORDS SUMMARY | 2022-06-18 08:45 | XMS_ITS | Encounter Summary ---
:1985 Author Organization [facility] Address [address] [place] [address] Care Team Providers Name Role Phone Unavailable Primary Care Provider Unavailable Reason for Visit Reason Comments Med Refill Encounter Details Date Type Department Care Team Description 02/18/2019 Refill Department of Josi Quach A PRN, Med Refill Medicine, [facility] [address], [place], [place] [address] [place] [address] [place] [phone] [phone] Social History Tobacco Use Types Packs/Day Years [...] do you attend latter-day or Never 2021 sikh services? Do you belong to any clubs [...] place to sleep or slept in a usp (including now)? Sex Assigned at Date Recorded Female 02/02/2019 3:06 PM CDT documented as of this encounter Miscellaneous Notes Telephone Encounter - Jimy Young L.P.N. - 02/25/2019 4:43 PM CDT noted Addendum Note - Jimy Young L.P.N. - 02/24/2019 10:03 AM CDT Addended by: JIMY YOUNG on: 02/24/2019 10:03 AM Modules accepted: Orders Telephone Encounter - Sindhu Soliz L.P.N. - 02/19/2019 4:27 PM CDT Medication was prescribed by Dr Rui Godinez in [facility] med. Telephone Encounter - Sarah Hurd, R.M.AMichael - 02/19/2019 4:16 PM CDT Sent to wrong pod Telephone Encounter - Rui Godinez M.D., M.P.H. - 02/19/2019 8:45 AM CDT What are you asking? Telephone Encounter - Sarah Hurd R.M.A. - 02/18/2019 4:[address] Yomi Godinez prescribed. Telephone Encounter - Mely Bob - 02/18/2019 8:55 AM CDT Nurse Review: Pharmacy Communication Provider: No primary care provider on file. Medication: Lamictal Strength: 200 mg tab Frequency: Take 2 tablets by mouth twice daily Pharmacy: [place], [place] Pharmacy Comment: now 8 tabs 10 mg per patient documented in this encounter Plan of Treatment Not on filedocumented as of this encounter Visit Diagnoses Not on filedocumented in this encounter
--- OUTSIDE RECORDS SUMMARY | 2022-06-18 08:45 | XMS_ITS | Encounter Summary ---
:1985 Author Organization [facility] Address [address] [place] [address] Care Team Providers Name Role Phone Unavailable Primary Care Provider Unavailable Reason for Visit Reason Comments Med Refill Encounter Details Date Type Department Care Team Description 10/20/2018 Refill Department of Neurology in Rui Godinez M.D., Med Refill [place], [place] M.P.H. [address] [facility] [address] [place] [address] [place] [address] (Wo rk) Social History Tobacco [...] many times do you More than three ssuan es a week 11/08/2021 talk on the phone with family, friends, or neighbors? How often do you get together with friends Twice a week 11/08/2021 or relatives? How often do you attend buddhist or Never 2021 christianity services? Do you belong to any clubs or No 11/08/2021 organizations such as buddhist groups, unions, fraternal or athletic groups, or [...]
--- OUTSIDE RECORDS SUMMARY | 2022-06-18 08:45 | XMS_ITS | Encounter Summary ---
:1985 Author Organization [facility] Address [address] [place] [address] Care Team Providers Name Role Phone Unavailable Primary Care Provider Unavailable Reason for Visit Reason Onset Date Comments Neurology Suggestions 01/06/2019 Encounter Details Date Type Department Care Team Description 01/06/2019 Clinical Communication Department of Rui Godinez Neurology in [place]aryn Kaplan, Suggestions Eduardo Gee. [address] [phone] Social History Tobacco Use Types Packs/Day [...] do you attend congregational or Never 2021 christianity services? Do you [...] this encounter Miscellaneous Notes Telephone Encounter - Rui Godinez M.D., M.P.H. - 01/07/2019 8:23 AM CDT Lets get her in to [place] Telephone Encounter - Sally Wallis L.P.N. - 01/06/2019 1:52 PM CDT Spoke to Trinity. Patient's delivery date is 02/28/19. Since patient is not able to get in to see you before delivery date OB Gia Kirkland at [facility] would like for you to touch base with her in regards to how much seizure medication - increase/decrease. Labs and what to do after delivery. Telephone Encounter - Diana Candelario - 01/06/2019 1:33 PM CDT Patient returning phone call. Please advise. Ok to leave a detailed VM. Call back at [phone] Telephone Encounter - Sally Wallis L.P.N. - 01/06/2019 10:46 AM CDT Attempted to contact patient. Patient has been seen in [place] for seizures. At this time there is an opening 03/26/2019 with a 1:30 arrival time. Message left for patient to return my call. Telephone Encounter - Zaida Goss - 01/06/2019 9:22 AM CDT Reason for Communication: Patient called wanting to schedule a neurology appt with Dr. Godinez. Patient is asking if Dr. Godinez would suggest any other neurologist, so that patient could be seen sooner than in April. Current Can Nursing/Provider leave a detailed message: Action Needed: Please review and advise patient. Name of Medication (if relevant): documented in this encounter Plan of Treatment Not on filedocumented as of this encounter Visit Diagnoses Not on filedocumented in this encounter
--- OUTSIDE RECORDS SUMMARY | 2022-06-18 08:45 | XMS_ITS | Encounter Summary ---
:1985 Author Organization [facility] Address [address] [place] [address] Care Team Providers Name Role Phone Unavailable Primary Care Provider Unavailable Encounter Details Date Type Department Care Team Description 02/19/2019 Orders Only Department of Neurology in Rui Godinez M.D., [place], [place] M.P.H. [address] [place] [address] [address] [place] [address] [place], [place] [phone] (Wo rk) Social History Tobacco Use [...] do you attend jain or Never 2021 cheondoism services? Do you belong to any clubs [...] place to sleep or slept in a fpc (including now)? Sex Assigned at Date Recorded Female 02/02/2019 3:06 PM CDT documented as of this encounter Plan of Treatment Not on filedocumented as of this encounter Visit Diagnoses Not on filedocumented in this encounter
--- OUTSIDE RECORDS SUMMARY | 2022-06-18 08:45 | XMS_ITS | Encounter Summary ---
:1985 Author Organization [facility] Address [address] [place] [address] Care Team Providers Name Role Phone Unavailable Primary Care Provider Unavailable Encounter Details Date Type Department Care Team Description 10/17/2018 Orders Only Department of Neurology in Rui Godinez M.D., [place], [place] M.P.H. [address] [place], [place] [address]E [address] [place] [address] [place], [place] [phone] (Wo rk) Social History Tobacco Use [...] or relatives? How often do you attend denominational or Never 2021 hindu services? Do you belong to any clubs or No 11/08/2021 organizations such as denominational groups, unions, fraternal or athletic groups, or [...] place to sleep or slept in a prison (including now)? Sex Assigned at Date Recorded Female 02/02/2019 3:06 PM CDT documented as of this encounter Plan of Treatment Not on filedocumented as of this encounter Visit Diagnoses Not on filedocumented in this encounter
--- OUTSIDE RECORDS SUMMARY | 2022-06-18 08:45 | XMS_ITS | Encounter Summary ---
:1985 Author Organization [facility] Address [address] [place] [address] Care Team Providers Name Role Phone Unavailable Primary Care Provider Unavailable Encounter Details Date Type Department Care Team Description 11/29/2018 Orders Only [facility] - Humaira Beltran [address] [place] [address] Social History Tobacco Use [...] or relatives? How often do you attend temple or Never 2021 holiness services? Do you belong to any clubs or No 11/08/2021 organizations such as temple groups, unions, fraternal or athletic groups, or [...] or slept in a snf (including now)? Sex Assigned at Date Recorded Female 02/02/2019 3:06 PM CDT documented as of this encounter Plan of Treatment Not on filedocumented as of this encounter Visit Diagnoses Not on filedocumented in this encounter
--- OUTSIDE RECORDS SUMMARY | 2022-06-18 08:45 | XMS_ITS | Encounter Summary ---
:1985 Author Organization [facility] Address [address] [place] [address] Care Team Providers Name Role Phone Unavailable Primary Care Provider Unavailable Encounter Details Date Type Department Care Team Description 10/20/2018 Clinical Communication Department of Dena Mendiola [place]rology [place], [place] [address] [place] [phone] Social History Tobacco Use Types Packs/Day [...] or relatives? How often do you attend orthodox or Never 2021 protestant services? Do you belong to any clubs or No 11/08/2021 organizations such as orthodox groups, unions, fraternal or athletic groups, [...] slept in a senior living (including now)? Sex Assigned at Date Recorded Female 02/02/2019 3:06 PM CDT documented as of this encounter Miscellaneous Notes Telephone Encounter - Dena Mendiola L.P.N. - 10/20/2018 3:02 PM TIRE WORKER Patient is notified. [facility] office also notified to start PA for Lamictal. WORKER Telephone Encounter - Rui Godinez M.D., M.P.H. - 10/20/2018 1:54 PM TIRE WORKER I called and talked to the pharmacy ([facility] [place]) and refilled her Lamictal at 400 mg BID as she is currently taking. My last note (in [place]) shows that she was prescribed 300 mg BID so someone else must have increased the dose. WORKER Telephone Encounter - Dena Mendiola L.P.N. - 10/20/2018 1:43 PM TIRE WORKER Patient calling and has seen Dr. Godinez in [place]. She is calling about her the prescription for Lamictal and that the pharmacy gave her generic. She is needing brand name because she has tried generic before and had many seizures. Patient is saying that she is and is out of the medication. She questions the dosage as the prescription that was sent for generic says she should take 200 mg twice daily. She had been taking 400 mg twice daily. She uses [facility] in [place]. Scanned notes from [place] are in the EMR from September. She would like a new rx sent to the pharmacy and to have CIERA 1. Please advise which dose she should be on. WORKER documented in this encounter Plan of Treatment Not on filedocumented as of this encounter Visit Diagnoses Not on filedocumented in this encounter
--- OUTSIDE RECORDS SUMMARY | 2022-06-18 08:45 | XMS_ITS | Encounter Summary ---
:1985 Author Organization [facility] Address [address] [place] [address] Care Team Providers Name Role Phone Unavailable Primary Care Provider Unavailable Encounter Details Date Type Department Care Team Description 11/20/2018 Clinical Communication Department of Sally Wallis Neurology in [place], [place] [address] [phone] Social History Tobacco Use Types Packs/Day Years [...] Telephone Encounter - Sally Wallis L.P.N. - 11/20/2018 9:07 AM EMERGENCY MEDICINE MEDICAL DIRECTOR Contacted patient. This message is in reference to the message on 11/18/18. Received call from Mary REV CYCLE ACCT RESP. Phone number [phone] that call has been placed to see what the status was on Levetiracetam. The cost is $2000.00 . This is a out- of - pocket expense not a co-pay. Therefore there is nothing further that can be done to lower the cost. Patient has been made aware of this. GENCY MEDICINE MEDICAL DIRECTOR documented in this encounter Plan of Treatment Not on filedocumented as of this encounter Visit Diagnoses Not on filedocumented in this encounter
--- OUTSIDE RECORDS SUMMARY | 2022-06-18 08:45 | XMS_ITS | Encounter Summary ---
:1985 Author Organization [facility] Address [address] [place] [address] Care Team Providers Name Role Phone Unavailable Primary Care Provider Unavailable Encounter Details Date Type Department Care Team Description 10/20/2018 Documentation Department of Neurology in [place], [place] L.P.N. [address] [place] [address] [place], [place] [phone] Social History Tobacco Use Types Packs/Day Years [...] or relatives? How often do you attend yazidi or Never 2021 sabianism services? Do you belong to any clubs or No 11/08/2021 organizations such as yazidi groups, unions, fraternal or athletic groups, or [...] place to sleep or slept in a alf (including now)? Sex Assigned at Date Recorded Female 02/02/2019 3:06 PM CDT documented as of this encounter Progress Notes Dena Mendiola L.PMichaelN. - 10/20/2018 1:23 PM CST See next phone message. PREVENTION AND SAFETY MANAGER documented in this encounter Plan of Treatment Not on filedocumented as of this encounter Visit Diagnoses Not on filedocumented in this encounter
--- OUTSIDE RECORDS SUMMARY | 2022-06-18 08:45 | XMS_ITS | Encounter Summary ---
:1985 Author Organization [facility] Address [address] [place] [address] Care Team Providers Name Role Phone Unavailable Primary Care Provider Unavailable Encounter Details Date Type Department Care Team Description 10/20/2018 Orders Only [facility] - Isma Hoyos M.D. [address], [facility] [address] [place] [phone] (Wo rk) Social History Tobacco Use Types [...] or relatives? How often do you attend protestant or Never 2021 scientology services? Do you belong to any clubs or No 11/08/2021 organizations such as protestant groups, unions, fraternal or athletic groups, or [...]
--- OUTSIDE RECORDS SUMMARY | 2022-06-18 08:45 | XMS_ITS | Encounter Summary ---
:1985 Author Organization [facility] Address [address] [place] [address] Care Team Providers Name Role Phone Unavailable Primary Care Provider Unavailable Encounter Details Date Type Department Care Team Description 10/20/2018 Clinical Communication Department of Neurology Rui Godinez, in [facility] kandis Boss, M.P.H. [address] [place] [address] [address], [place] [phone] Social History Tobacco Use Types Packs/Day [...] or relatives? How often do you attend cheondoism or Never 2021 religion services? Do you belong to any clubs or No 11/08/2021 organizations such as cheondoism groups, unions, fraternal or athletic groups, or [...] place to sleep or slept in a half-way (including now)? Sex Assigned at Date Recorded Female 02/02/2019 3:06 PM CDT documented as of this encounter Miscellaneous Notes Telephone Encounter - Sally Wallis L.P.N. - 10/21/2018 11:22 AM LINE SERVER Contacted [facility]. Medication is correct but the issue is that they need a prior auth done on the weaver. It cost $2000.00 for a 30 day supply. SERVER Telephone Encounter - Rui Godinez M.D., M.P.H. - 10/21/2018 9:41 AM LINE SERVER It says lamictal with DAW1 SERVER Telephone Encounter - Bianka Chakraborty - 10/20/2018 7:16 AM CST Reason for Communication: patient calling she said there was a prescription sent to her pharmacy andshe thinks it was the wrong one- patient said the generic was sent to the pharmacy and patient needsthe brand name LaMictal 200 mg tablet. Please include the code CIERA=1 Current Can Nursing/Provider leave a detailed message: yes you can Did the patient refuse triage through Nurse line? (for symptom based concerns)na Action Needed: please call her back Name of Medication (if relevant): Lamictal 200 mg tablet SERVER documented in this encounter Plan of Treatment Not on filedocumented as of this encounter Visit Diagnoses Not on filedocumented in this encounter
--- OUTSIDE RECORDS SUMMARY | 2022-06-18 08:45 | XMS_ITS | Encounter Summary ---
:1985 Author Organization [facility] Address [address] [place] [address] Care Team Providers Name Role Phone Unavailable Primary Care Provider Unavailable Encounter Details Date Type Department Care Team Description 08/06/2019 Clinical Communication Department of Sleep Rui Godinez, Medicine in Karyn Gee, M.P .H. [place] [address] [place] [phone] Social History Tobacco Use Types Packs/Day [...] or relatives? How often do you attend scientologist or Never 2021 scientologist services? Do you belong to any clubs or No 11/08/2021 organizations such as scientologist groups, unions, fraternal or athletic groups, or [...] Telephone Encounter - Sally Wallis L.P.N. - 08/06/2019 10:03 AM CDT Attempted to contact patient. Detailed message left as indicated. Instructed patient that she should have enough refills on her Lamictal until next February. Keppra refill is good until Nov. Patient should call to reschedule her appt.as she has indicated. Telephone Encounter - Rachelle Rodgers - 08/06/2019 8:47 AM CDT Reason for Communication: Patient calling, has appt 08/25, is unable to make appt,next available is the end of October. Patient is wondering if she reschedules until then if she will be able to get refill on her meds to last her. Current Can Nursing/Provider leave a detailed message: yes Did the patient refuse triage through Nurse line? (for symptom based concerns): Action Needed: Name of Medication (if relevant): documented in this encounter Plan of Treatment Not on filedocumented as of this encounter Visit Diagnoses Not on filedocumented in this encounter
--- OUTSIDE RECORDS SUMMARY | 2022-06-18 08:45 | XMS_ITS | Encounter Summary ---
:1985 Author Organization [facility] Address [address] [place] [address] Care Team Providers Name Role Phone Unavailable Primary Care Provider Unavailable Encounter Details Date Type Department Care Team Description 10/20/2018 Clinical Communication Department of Dena Mendiola Neurology [place] [address] [place] [phone] Social History Tobacco Use Types Packs/Day [...] or relatives? How often do you attend evangelical or Never 2021 baptist services? Do you belong to any clubs or No 11/08/2021 organizations such as evangelical groups, unions, fraternal or athletic groups, or [...] Telephone Encounter - Dena Mendiola L.P.N. - 10/27/2018 1:23 PM CERTIFIED GENETIC COUNSELOR Received forms back from [facility] needing additional information. Dr. Godinez completes these and they are faxed back. IFIED GENETIC COUNSELOR Telephone Encounter - Dena Mendiola L.P.N. - 10/22/2018 3:42 PM CERTIFIED GENETIC COUNSELOR Forms are faxed to Neurology in [place] for Dr. Godinez to fill out. IFIED GENETIC COUNSELOR Telephone Encounter - Dena Mendiola L.P.N. - 10/22/2018 3:37 PM CERTIFIED GENETIC COUNSELOR I was given the fax number to fax the forms to. Patient is covered under [facility]. IFIED GENETIC COUNSELOR Telephone Encounter - Dena Mendiola L.P.N. - 10/22/2018 3:33 PM CERTIFIED GENETIC COUNSELOR Prior Auth office unable to help because a physician signature is needed on the forms. IFIED GENETIC COUNSELOR Telephone Encounter - Dena Mendiola L.P.N. - 10/22/2018 2:31 PM CERTIFIED GENETIC COUNSELOR I spoke to the patient to see if she had a fax number. She was only given the phone number. I informed her because it is a prior authorization, I will have the prior authorization office call [employer]. I notified Clemente Alfredo who was working on this yesterday and faxed the forms to her. IFIED GENETIC COUNSELOR Telephone Encounter - Sydney Kim - 10/22/2018 12:03 PM CST Patient states she has faxed the form to Dr. Godinez. She also provided the phone number that Dr. Godinez or a nurse needs to call. , department [employer]. Please advise IFIED GENETIC COUNSELOR Telephone Encounter - Dena Mendiola L.P.N. - 10/22/2018 9:07 AM CERTIFIED GENETIC COUNSELOR I called Trinity to see that she got the message that the form was faxed. She indicated that she went to her HR because of the trouble of [facility] not seeing her in their data base. She said that her HR called [facility] and she was given new forms. The form that was faxed was the wrong form. She will call with a new fax number to send it to because there is no fax number on the form. She will fax the form to me today. IFIED GENETIC COUNSELOR Telephone Encounter - Dena Mendiola L.P.N. - 10/21/2018 10:12 AM CERTIFIED GENETIC COUNSELOR Left message to the patient that the form was faxed. IFIED GENETIC COUNSELOR Telephone Encounter - Dena Mendiola L.P.N. - 10/21/2018 9:49 AM CERTIFIED GENETIC COUNSELOR Form is faxed to [facility] of [place], customer service. , phone Address [address] [address] [place] [address] IFIED GENETIC COUNSELOR Telephone Encounter - Dena Mendiola L.P.N. - 10/21/2018 8:17 AM CERTIFIED GENETIC COUNSELOR Phone call received yesterday from Prior Auth office Juni Cornejo. She is working on the prior [employer] for the [facility] and wanting to do a conference call to the insurance. Parties myself , Juni and [facility] to get the copay covered. Was on the phone for 45 min with [facility] and they were unable to help because they could not locate the patient with the ID listed. Alfredo indicated that the copay is very expensive and the pharmacy says that a waiver needs to be done. I called the patient yesterday to verify her ID number and it is correct. The patient said she had the forms that were faxed to her for the waiver when she called the insurance yesterday am and will fax them Saturday am. 10-21-18 Forms are here and on Dr. Godinez desk. IFIED GENETIC COUNSELOR Telephone Encounter - Dena Mendiola L.P.N. - 10/20/2018 4:47 PM CERTIFIED GENETIC COUNSELOR Member service number should be [phone]. Patient to fax forms tomorrow. IFIED GENETIC COUNSELOR Telephone Encounter - Dena Mendiola L.P.N. - 10/20/2018 2:20 PM CERTIFIED GENETIC COUNSELOR Patient calls and says that her insurance has changed to [facility] - [place], , Group [id number]. Phone number member services IFIED GENETIC COUNSELOR Telephone Encounter - Dena Mendiola L.P.N. - 10/20/2018 2:09 PM CERTIFIED GENETIC COUNSELOR [employer] pool Please start a prior auth for the patients Lamictal that Dr. Godinez prescribed today. She needs brandname as she had many seizures when she tried the generic.Please do today as the patient is out of medication. Thank you, Thank you IFIED GENETIC COUNSELOR documented in this encounter Plan of Treatment Not on filedocumented as of this encounter Visit Diagnoses Not on filedocumented in this encounter
--- OUTSIDE RECORDS SUMMARY | 2022-06-18 08:45 | XMS_ITS | Encounter Summary ---
:1985 Author Organization [facility] Address [address] [place] [address] Care Team Providers Name Role Phone Unavailable Primary Care Provider Unavailable Encounter Details Date Type Department Care Team Description 11/14/2018 Orders Only [facility] - Humaira Beltran [address] [place] [address] Social History Tobacco Use [...] or relatives? How often do you attend episcopalian or Never 2021 restorationism services? Do you belong to any clubs or No 11/08/2021 organizations such as episcopalian groups, unions, fraternal or athletic groups, or [...]
--- OUTSIDE RECORDS SUMMARY | 2022-06-18 08:45 | XMS_ITS | Encounter Summary ---
:1985 Author Organization [facility] Address [address] [place] [address] Care Team Providers Name Role Phone Unavailable Primary Care Provider Unavailable Encounter Details Date Type Department Care Team Description 10/22/2018 Clinical Communication Department of Internal Kassy Godinez, Medicine in Karyn Bose, M.P. H. [place] [address] [place] [phone] Social History Tobacco Use Types Packs/Day Years [...] or relatives? How often do you attend anabaptist or Never 2021 worship services? Do you belong to any clubs or No 11/08/2021 organizations such as anabaptist groups, unions, fraternal or athletic groups, or [...]
--- OUTSIDE RECORDS SUMMARY | 2022-06-18 08:45 | XMS_ITS | Encounter Summary ---
:1985 Author Organization [facility] Address [address] [place] [address] Care Team Providers Name Role Phone Unavailable Primary Care Provider Unavailable Encounter Details Date Type Department Care Team Description 11/14/2018 Clinical Communication Department of Neurology Rui Godinez, in [facility] kandis Boss, M.P.H. [address] [place] [address] [address] [phone] Social History Tobacco Use Types Packs/Day [...] or relatives? How often do you attend hindu or Never 2021 christianity services? Do you belong to any clubs or No 11/08/2021 organizations such as hindu groups, unions, fraternal or athletic groups, or [...] Encounter - Dena Mendiola L.P.N. - 11/18/2018 11:02 AM MANAGER BUSINESS INFORMATION See next message. GER BUSINESS INFORMATION Telephone Encounter - Dena Mendiola L.P.N. - 11/17/2018 10:12 AM MANAGER BUSINESS INFORMATION Left message to call back. GER BUSINESS INFORMATION Telephone Encounter - Golden Arreola - 11/14/2018 12:08 PM CST Reason for Communication: Trinity is requesting a refill on a medication, she said was not completed at her previous appt. She is hoping to have all her meds refilled as well. Also, lamotrigine was prescribed and she is not taking it according to prescription, she is taking per Dr Godinez's orders. She does not have enough to get her to next refill. She also said that on the prior auth he indicated that substitution is allowed on this and prior auth denied this. Her insurancecompany is requesting that it be filled out and to state stubstituion is not allowed to send Brand Name for this instead. She is requesting a call back. Current Can Nursing/Provider leave a detailed message: Did the patient refuse triage through Nurse line? (for symptom based concerns) Action Needed: Name of Medication (if relevant): Acetazolamide GER BUSINESS INFORMATION documented in this encounter Plan of Treatment Not on filedocumented as of this encounter Visit Diagnoses Not on filedocumented in this encounter
--- OUTSIDE RECORDS SUMMARY | 2022-06-18 08:45 | XMS_ITS | Encounter Summary ---
:1985 Author Organization [facility] Address [address] [place] [address] Care Team Providers Name Role Phone Unavailable Primary Care Provider Unavailable Encounter Details Date Type Department Care Team Description 10/13/2018 Clinical Communication Department of Neurology Rui Godinez, in [facility] kandis Boss, M.P.H. [address] [place] [address] [address], [place] [phone] Social History Tobacco Use Types Packs/Day [...] do you attend congregation or Never 2021 rastafarian services? Do you belong to any clubs [...] this encounter Miscellaneous Notes Telephone Encounter - Vielka Alvares L.P.N. - 10/17/2018 8:47 AM CST SUBJECTIVE CHIEF COMPLAINT / REASON FOR CALL No chief complaint on file. Patient is requesting the following information: Prescription for seizure medication PLAN The following information was provided : Prescription for LamoTRIgine was faxed to [facility] in [place] Information: patient/caller able to repeat back in their own words The following references were used: provider Herbert SHORTAGE INVESTIGATOR Telephone Encounter - Sally Wallis L.P.N. - 10/13/2018 8:38 AM CASH SHORTAGE INVESTIGATOR Contacted patient. Stated that she had the form faxed to our clinic that needs to be filled out. Needs brand name seizure medication. Has tried generic medication and had seizures while on them. Is aware that will be back in office on SatOctober 15. SHORTAGE INVESTIGATOR Telephone Encounter - Racquel Jimenez - 10/13/2018 7:26 AM CST Reason for Communication: forms Current Can Nursing/Provider leave a detailed message: yes Did the patient refuse triage through Nurse line? (for symptom based concerns) Action Needed: Patient is needing to speak with dr. Godinez's nurse about some forms she will be needing to fax over. Patient has not been seen by dr. Godinez here but has seen him in [place]. Form is for a medication her insurance is charging her full weaver for because it is not the name brand. She is and needing this medication and needing Dr. Godinez to fill this out for her. Name of Medication (if relevant): SHORTAGE INVESTIGATOR documented in this encounter Plan of Treatment Not on filedocumented as of this encounter Visit Diagnoses Not on filedocumented in this encounter
--- OUTSIDE RECORDS SUMMARY | 2022-06-18 08:45 | XMS_ITS | Encounter Summary ---
:1985 Author Organization [facility] Address [address] [place] [address] Care Team Providers Name Role Phone Unavailable Primary Care Provider Unavailable Encounter Details Date Type Department Care Team Description 10/06/2018 Clinical Communication Department of Neurology Rui Godinez, in [facility] kandis Boss, M.P.H. [address] [place] [address] [address], [place] [phone] Social History Tobacco Use Types Packs/Day [...] do you attend congregational or Never 2021 jewish services? Do you belong to any clubs [...] Telephone Encounter - Sally Wallis L.P.N. - 10/08/2018 10:24 AM PLUG OVERWRAP MACHINE TENDER Patient advised to check with [facility] to send neurology records and to fax over the formulary exception form. Patient in agreement with this plan. OVERWRAP MACHINE TENDER Telephone Encounter - Diana Candelario - 10/06/2018 1:22 PM CST Reason for Communication: Patient calling in and is wondering if Dr. Godinez had sent over the formulary exception form over to her insurance for her Lamictal pills. Please advise and call patient back. Current Can Nursing/Provider leave a detailed message: Yes Did the patient refuse triage through Nurse line? (for symptom based concerns) Action Needed: Call back Name of Medication (if relevant): Lamictal pills OVERWRAP MACHINE TENDER documented in this encounter Plan of Treatment Not on filedocumented as of this encounter Visit Diagnoses Not on filedocumented in this encounter
== END 2022-06-18 08:40 | disposition home or self-care (01) ==
LOC: US 08:40
PROVIDERS: PCP Family Medicine; Visit Provider Obstetrics & Gynecology
DX: Z34.92 Encounter for supervision of normal pregnancy, unspecified, second trimester (principal); Z3A.19 19 weeks gestation of pregnancy
CPT/HCPCS: 76805

== ENCOUNTER 2022-06-18 10:20 | Outpatient (CLI) | payer BC, SELFPAY ==
--- OUTSIDE RECORDS SUMMARY | 2022-06-18 10:23 | XMS_ITS | Encounter Summary ---
:1985 Author Organization [facility] Address [address] [place] [address] Care Team Providers Name Role Phone [facility] Primary Care Provider [phone] Gia Martínez MD Unavailable [phone] Reason for Visit Reason Onset Date Comments Social Work Services 11/06/2021 Encounter Details Date Type Department Care Team Description 11/06/2021 Telephone UR CASE MANAGEMENT [facility] Social Work Services [phone] Mei Sanchez [facility] Social History Tobacco Use Types Packs/Day Years Used Date Never Smoker Smokeless Tobacco: Never Used Alcohol Use Standard Drinks/Week Comments Not Currently 0 (1 standard drink = 0.6 oz pure alcoho l) occ Sex Assigned at Date Recorded Not on file COVID-19 Exposure Response Date Recorded In the last month, have you been in contact with No / Unsure 10/28/2021 8:34 AM LEADITE MAN someone who was confirmed or suspected to have Coronavirus / COVID-19? documented as of this encounter Miscellaneous Notes Telephone Encounter - Mei Rodriguez, RETAIL LEASING AGENT - 11/06/2021 9:21 AM LEADITE MAN Received email from hospital security department with notification that fetus' body is still in the morgue. Security contacted [employer] [place] and they report they have not been able to reach patient to make the cremation arrangements and, therefore, they have not come to the hospital for removal of the body. Phone call to patient this morning. No answer. Message left with request that Trinity call me backas soon as possible. ITE MAN documented in this encounter Plan of Treatment Not on filedocumented as of this encounter Visit Diagnoses Not on filedocumented in this encounter Care Teams Stone Gluer Relationship Specialty Start Date End Date [facility] PCP - General 09/05/17 [id number] [place], [place] [phone] Gia Martínez MD Assigned OBGYN Provider 10/29/[address] [place] [address] documented as of this encounter
--- OUTSIDE RECORDS SUMMARY | 2022-06-18 10:23 | XMS_ITS | Encounter Summary ---
:1985 Author Organization [facility] Address [address] [place] [address]. [place] [address] Care Team Providers Name Role Phone [facility] Primary Care Provider [phone] Encounter Details Date Type Department Care Team [...] with No / Unsure 10/28/2021 8:34 AM VACUUM METALIZING SUPERVISOR someone who was confirmed or suspected to have Coronavirus / COVID-19? documented as of this encounter Plan of Treatment Not on filedocumented as of this encounter Visit Diagnoses Not on filedocumented in this encounter Care Teams Gang Tailer Relationship Specialty Start Date End Date [facility] PCP - General 09/05/17 [address] [place] [address] documented as of this encounter
--- OUTSIDE RECORDS SUMMARY | 2022-06-18 10:23 | XMS_ITS | Encounter Summary ---
:1985 Author Organization [facility] Address [address] [place] [address]. [place] [address] Care Team Providers Name Role Phone [facility] Primary Care Provider [phone] Gia Martínez MD Unavailable [phone] Reason for Visit Reason Comments Induction Of Labor trisomy 18 Auth/Cert Specialty Diagnoses / Procedures Referred By Contact Refer red To Contact family day care worker Diagnoses Encounter for induction of labor Maternity elizabeth: 03/07/22 IOL Encounter for induction of labor Ur 4cob [address] [facility] [place] [place] [address] Phone: Referral ID Status Reason Start Date Expiration Date Visits Requ ested Visits Authorized [id number] 1 1 Encounter Details Date Type Department Care Team Description 10/28/2021 - Hospital Encounter [facility] Sa rima Martínez MD [address] [place], [place] [id number] 10/29/2021 [facility] Birthplace Marnie Tafoya MD [address] [place], [place] [address] [address] [place] [phone] Social History Tobacco Use Types Packs/Day Years Used Date Never Smoker Smokeless Tobacco: Never Used Alcohol Use Standard Drinks/Week Comments Not Currently 0 (1 standard drink = 0.6 oz pure alcoho l) occ Sex Assigned at Date Recorded Not on file COVID-19 Exposure Response Date Recorded In the last month, have you been in contact with No / Unsure 10/28/2021 8:34 AM PHOTORESIST CONTACT PRINTER someone who was confirmed or suspected to have Coronavirus / COVID-19? documented as of this encounter Last Filed Vital Signs Vital Sign Reading Time Taken Comments Blood Pressure 107/66 10/29/2021 11:27 AM PHOTORESIST CONTACT PRINTER Pulse - - Temperature 37 ??C (98.6 ??F) 10/29/2021 6:23 AM PHOTORESIST CONTACT PRINTER Respiratory Rate 99 10/29/2021 8:38 AM PHOTORESIST CONTACT PRINTER Oxygen Saturation 100% 10/29/2021 12:01 PM PHOTORESIST CONTACT PRINTER Inhaled Oxygen Concentration - - Weight 79.4 kg (175 lb) 10/28/2021 9:00 AM PHOTORESIST CONTACT PRINTER Height 165.1 cm (5' 5) 10/28/2021 9:00 AM PHOTORESIST CONTACT PRINTER Body Mass Index 29.12 10/28/2021 9:00 AM PHOTORESIST CONTACT PRINTER documented in this encounter Discharge Summaries Lin Lemon MD - 10/29/2021 12:[address] [facility] Discharge Summary Trinity Lozano Age: [age] year [...] 2 times daily Refills: 0 Consultations: Anesthesia Sales And Marketing Manager Social work Brief Admission History Ms. Trinity [...] To Knowconsent on 10/26/21 at 1535 with pa. She received mifepristone 200mg PO and misoprostol 400mcg vaginally x2 doses. She received IV diluadid, IV fentanyl and an epidural for pain control. [facility] 103[facility] which persisted for [...] to see where placenta was. Placenta was long term through cervix at this time so it [...] Lemon MD PGY3 Obstetrics & Gynecology 10/29/21 ORESIST CONTACT PRINTER Associated attestation - Marnie Tafoya MD - 10/29/2021 3:28 PM PHOTORESIST CONTACT PRINTER Physician Attestation IMarnie, saw and evaluated this patient prior to discharge. I discussed the patient with the resident/fellow and agree with plan of care as documented in the note. I personally reviewed vital signs, medications, and imaging. I personally spent 10 minutes on discharge activities. Marnei Tafoya MD Date of Service (when I saw the patient): 10/29/21 documented in this encounter Discharge Instructions Discharge InstructionsThHaley johnson RN - 10/29/2021 2:07 PM CST Gia Martínez MD [facility] [employer] Building [address] [place] [id number] ORESIST CONTACT PRINTER AttachmentsThe following attachments cannot be sent through [...] Lemon MD PGY3 Obstetrics & Gynecology 10/29/21 ORESIST CONTACT PRINTER Cornelio Strickland - 10/29/2021 10:51 AM CST [facility] Unit: Labor and Delivery Referral Source: ELIZABETH page Illness Narrative: Trinity had an induced labor, son Avtar was born but did not survive long outsidethe womb. Distress: Grief at the loss of their child. Coping: Parents of Avtar requested a [place], Naming and Commendation service for their son Avtar.. Plan: On-call visit, mom will be discharging soon. No plan to follow. Cornelio Strickland Clinical Services Director Pager number: [phone] * [facility] remains available 29/04 for emergent requests/referrals, either by having the switchboard page the on-call cleaner window or by entering an ELIZABETH/STAT consult in [facility] (this will also page the on-call cleaner window).* ORESIST CONTACT PRINTER Bianka Hutson, SOHEILA - 10/29/2021 8:41 AM CST [...] Obstetrics & Gynecology PGY-3 1:58 AM 10/29/2021 ORESIST CONTACT PRINTER Anastasia Mejia MD - 10/28/2021 10:17 PM CST Cervix 2/50/-1, velez placed w/ 70 ccs without difficulty. Patient tolerated intervention well. Continue pitocin per protocol. Comfortable with epidural in place. Dr. Mauricio drew. Anastasia Mejia MD Obstetrics & Gynecology PGY-3 10:18 PM 10/28/2021 ORESIST CONTACT PRINTER Anastasia Mejia MD - 10/28/2021 8:52 PM [...] Andrews MD - 10/28/2021 7:26 PM CST [facility] LABOR & DELIVERY PROGRESS NOTE: October 28, [...] Antibody Screen Negative Negative SPECIMEN EXPIRATION DATE [id number] ASSESSMENT / PLAN: 36 year old at [...] and resources with patient. Gia Martínez MD ORESIST CONTACT PRINTER Gia Martínez MD - 10/28/2021 6:25 PM [...] Antibody Screen Negative Negative SPECIMEN EXPIRATION DATE [id number] ASSESSMENT / PLAN: 36 year old at [...] or autopsy. Plan cremation. Gia Martínez MD ORESIST CONTACT PRINTER Madhuri Chaves, CCLS - 10/28/2021 3:48 PM [...] at bedside in room for Carolina's scheduledvisit. ORESIST CONTACT PRINTER Bianka Hutson RN - 10/28/2021 11:41 AM CST Messsage left for Now I lay Me Down to Sleep that the patient would like pictures of their baby after it its born ORESIST CONTACT PRINTER documented in this encounter H&P Notes Gia Martínez MD - 10/28/2021 12:[address] [facility] OB History and Physical Trinity Lozano Age: [...] kg (8 lb 8 oz) F Vag-Spont SANDY Comments: 4th degree tear PMHx: Past Medical History: Diagnosis Date ??? Genital herpes ??? Seizures (H) last one was about a year ago PSHx: Past Surgical History: Procedure Laterality Date ??? 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 ? 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 Phone conversation with pt SOHEILA Carlton; will share information with overnight sales professional and tomorrow's daytime cleaner window regarding follow up care. Baby's Name: Avtar Ryan Father's name: Amrit. Mother is asking for a blessing/prayer after baby is born. RN did not believe they wanted mormonism and will clarify if this is the request. Per RN, mom stated something connected with our Rastafari background but does not have to be too formal. Poornima Elizabeth MDiv Associate Sales And Marketing Manager Pager [phone] Office [phone] [facility] remains available 29/04 for emergent requests/referrals, either by having the switchboard page the on-call cleaner window or by entering an ELIZABETH/STAT consult in [facility] (this will also page the on-call cleaner window). Routine [facility] consults receive an initial response within 24 hours. ORESIST CONTACT PRINTER documented in this encounter Miscellaneous Notes Plan [...] Encouraged to call if anything comes up. ORESIST CONTACT PRINTER Plan of Care - Bianka Hutson RN [...] can Call the [facility] if needed ORESIST CONTACT PRINTER L&D Delivery Note - Gia Martínez MD - 10/29/2021 8:58 AM PHOTORESIST CONTACT PRINTER OB Vaginal Delivery Note Trinity Lozano Age: [age] year old Date of : 1985 GA: 21w4d GP: Labor Complications: None EBL: mL Delivery QBL: Delivery Type: Vaginal, Spontaneous ROM to Delivery Time: (Delivered) Hours: 1 Minutes: 45 [place] Weight: 1 Minute 5 Minute 10 Minute Totals: 0 0 0 Delivery Details: Vaginal Delivery Summary 21w4d Stage 1: Trinity Lozano is a 36 year old who presented on 10/28/2021 at 21w3d for termination induction for multiple anomalies concerning for Trisomy 18. She completed a Women's Right To Knowconsent on 10/26/21 at 1535 with pa. She received mifepristone 200mg PO and misoprostol [...] to see where placenta was. Placenta was long term through cervix at this time so it [...] baby. Gia Martínez MD Janna Lozano-Trinity FD [[id number]] Rupture date/time: 10/29/21 0602 Rupture type: Spontaneous [...] collection?: No Delivery (Maternal) (Provider to Complete) ([id number]) Episiotomy: None Perineal lacerations: None Genital tract inspection done: Pos Blood Loss Mother: Trinity Lozano #[id number] Start of Mother's Information Delivery Blood Loss 10/28/21 1947 - 10/29/21 0909 None End of Mother's Information Mother: Trinity Lozano #[id number] Delivery - Provider to Complete ([id number]) Delivering clinician: Gia Martínez MD Attempted Delivery Types (Choose all that apply): Spontaneous Vaginal Delivery Delivery Type (Choose the 1 that will go to the History): Vaginal, Spontaneous Placenta Removal: Spontaneous Comments: small but appears intact, 2vc Disposition: Pathology Presentation and Position Presentation: Vertex Gia Martínez MD ORESIST CONTACT PRINTER Plan of Care - Trinity Burton RN [...] update provider with any questions or concerns. ORESIST CONTACT PRINTER Provider Notification - Trinity Burton RN - 10/29/2021 3:15 AM PHOTORESIST CONTACT PRINTER 10/29/21 0154 Provider Notification Provider Name/Title Dr. Mejia Method of Notification At Bedside Request Evaluate in Person Notification Reason Labor Status;SVE SVE and provider unable to evaluate cervix due to velez balloon being in place. Provider gently tugged on velez balloon and still in place. Will continue to monitor and continue with plan of care. ORESIST CONTACT PRINTER Plan of Care - Anabel Busby RN [...] their baby had passed. Patient planning for cleaner window to visit after delivery and requesting mormonism. Will continue with current plan of care. ORESIST CONTACT PRINTER Provider Notification - Anabel Busby RN - [...] Tre parrish applied. WIll continue to monitor. ORESIST CONTACT PRINTER Plan of Care - Bianka Hutson RN - 10/28/2021 3:54 PM CST Patient is here for Induction for trisomy 18. She and her spouse are coping well. They desire to hold the baby boy and to have mementos. They would like the [place] after the baby is born to do a prayer and blessing. The child and adolescent psychiatrist gave them lots of resources to help with talking to their daughter bout knowing she had a baby brother who passed as a baby as she gets older ORESIST CONTACT PRINTER documented in this encounter Plan of Treatment Not on filedocumented as of this encounter Procedures Procedure Name Priority Date/Time Associated Comments Diagnosis PLACENTA PATH ORDER Routine 10/29/2021 12:49 Resu lts for this AND INDICATIONS PM PHOTORESIST CONTACT PRINTER procedure ar e in the results section. CBC WITH PLATELETS Routine 10/28/2021 9:21 PM Res ults for this PHOTORESIST CONTACT PRINTER procedure are i n the results section. TYPE AND SCREEN, Routine 10/28/2021 10:23 Results for this ADULT AM PHOTORESIST CONTACT PRINTER procedure are i n the results section. ABO/RH TYPE AND Routine 10/28/2021 10:23 Results for this SCREEN AM PHOTORESIST CONTACT PRINTER procedure are i n the results section. CBC WITH PLATELETS Routine 10/28/2021 10:23 Resul ts for this AM PHOTORESIST CONTACT PRINTER procedure are i n the results section. COVID-19 VIRUS STAT 10/28/2021 10:05 Results f or this (CORONAVIRUS) BY PCR AM PHOTORESIST CONTACT PRINTER procedu re are in the results section. [...] path order and indications (10/29/2021 12:49 PM PHOTORESIST CONTACT PRINTER) Component Value Ref Test Analysis Performed At [facility] gist Range Method Time Signature Case Report Peds Surgical Pathology Repo rt ?Case: [id number] ? 03/11/2022 [facility] Authorizing Provider: ??Stew art, Lin Tran MD ?Collected: ? 10/29/2021 12:49 PM ? 9:43 PM LABORATOR Y Ordering Location: ? [facility] ?Received: ?10/30/2021 11:00 AM ? CDT ? Birthplace ? Pathologist: ? Byron Sainz MD ? Specimen: ?Placenta, kayden centa ? Final Placenta, Mid Second Trimester, 57 Grams (<10th Percen tile), Delivery: 03/11/2022 [facility]U Electronically Diagnosis 9:43 PM LABORATORY signed by Chorionic Villi: CDT Byron Valentine - Appropriate Maturation For Gestational Age. [...] LABORATORY this testing was CDT completed at [facility] Laboratory Case Images 03/11/2022 UU 9:43 PM LABORATORY CDT Specimen Anatomical Collection Method Collection Time Receive d Time (Source) Location / / Volume Laterality Placenta PLACENTAL Non-blood 10/29/2021 12:49 10/30/2021 STRUCTURE / Collection / PM PHOTORESIST CONTACT PRINTER 11:00 AM PHOTORESIST CONTACT PRINTER Unknown Unknown Lin Lemon MD LAB - JENI LUGO Performing Organization Address City/State/ZIP Code Phon [place] [address] [phone] Lab [address] [facility], Room 3580 UR LABORATORY [place], [place] [phone] [facility] Lab [phone], Room M309 (ABNORMAL) CBC with platelets (10/28/2021 9:21 PM PHOTORESIST CONTACT PRINTER) [facility] Method Time Signature WBC Count 9.6 4.0 - 11.0 10/28/2021 UR LABORATORY 10e3/uL 9:28 PM PHOTORESIST CONTACT PRINTER RBC Count 3.62 (L) 3.80 - 10/28/2021 UR LABORATORY 5.20 9:28 PM PHOTORESIST CONTACT PRINTER 10e6/uL Hemoglobin 11.1 (L) 11.7 - 10/28/2021 UR LABORATORY 15.7 g/dL 9:28 PM PHOTORESIST CONTACT PRINTER Hematocrit 32.7 (L) 35.0 - 10/28/2021 UR LABORATORY 47.0 % 9:28 PM PHOTORESIST CONTACT PRINTER MCV 90 78 - 100 10/28/2021 UR LABORATORY fL 9:28 PM PHOTORESIST CONTACT PRINTER MCH 30.7 26.5 - 10/28/2021 UR LABORATORY 33.0 pg 9:28 PM PHOTORESIST CONTACT PRINTER MCHC 33.9 31.5 - 10/28/2021 UR LABORATORY 36.5 g/dL 9:28 PM PHOTORESIST CONTACT PRINTER RDW 12.7 10.0 - 10/28/2021 UR LABORATORY 15.0 % 9:28 PM PHOTORESIST CONTACT PRINTER Platelet Count 229 150 - 450 10/28/2021 UR LABORATORY 10e3/uL 9:28 PM PHOTORESIST CONTACT PRINTER Specimen Anatomical Collection Method / Collection Time Recei chelsey Time (Source) Location / Volume Laterality Blood STRUCTURE OF LEFT Venipuncture / 10/28/2021 9:21 10/28 9:26 HAND / Unknown Unknown PM PHOTORESIST CONTACT PRINTER PM PHOTORESIST CONTACT PRINTER Anastasia Mejia MD LAB - BLOOD ORDERABLES Performing Organization Address City/State/ZIP Code Phon e Number UR LABORATORY [facility] [place] [address] Care [address] [place] [address], Room M309 Adult Type and Screen (10/28/2021 10:23 AM PHOTORESIST CONTACT PRINTER) Patholo gist Method Time Signature ABO/RH(D) O POS 10/28/2021 UR BLOOD 10:00 AM BANK PHOTORESIST CONTACT PRINTER Antibody Negative Negative 10/28/2021 UR BLOOD Screen 10:00 AM BANK PHOTORESIST CONTACT PRINTER SPECIMEN [id number] 10/28/2021 UR BLOOD EXPIRATION 10:00 AM BANK DATE PHOTORESIST CONTACT PRINTER Specimen Anatomical Collection Method / Collection Time Recei chelsey Time (Source) Location / Volume Laterality Blood STRUCTURE OF LEFT Venipuncture / 10/28/2021 10:23 10/08 HAND / Unknown Unknown AM PHOTORESIST CONTACT PRINTER 10:46 AM PHOTORESIST CONTACT PRINTER Anastasia Mejia MD LAB - BLOOD BANK TEST ORDER Performing Organization Address City/State/ZIP Code Phon e Number UR BLOOD BANK [facility] [place] [address] Components Lab [address] [place] [address], Room M301 CBC with platelets (10/28/2021 10:23 AM PHOTORESIST CONTACT PRINTER) P athologist Signature WBC Count 8.4 4.0 - 11.0 10/28/2021 UR CHILDREN 10e3/uL 10:53 AM PHOTORESIST CONTACT PRINTER LABORATORY RBC Count 3.94 3.80 - 10/28/2021 UR CHILDREN 5.20 10:53 AM PHOTORESIST CONTACT PRINTER LABORATORY 10e6/uL Hemoglobin 12.0 11.7 - 10/28/2021 UR CHILDREN 15.7 g/dL 10:53 AM PHOTORESIST CONTACT PRINTER LABORATORY Hematocrit 36.7 35.0 - 10/28/2021 UR CHILDREN 47.0 % 10:53 AM PHOTORESIST CONTACT PRINTER LABORATORY MCV 93 78 - 100 10/28/2021 UR CHILDREN fL 10:53 AM PHOTORESIST CONTACT PRINTER LABORATORY MCH 30.5 26.5 - 10/28/2021 UR CHILDREN 33.0 pg 10:53 AM PHOTORESIST CONTACT PRINTER LABORATORY MCHC 32.7 31.5 - 10/28/2021 UR CHILDREN 36.5 g/dL 10:53 AM PHOTORESIST CONTACT PRINTER LABORATORY RDW 12.9 10.0 - 10/28/2021 UR CHILDREN 15.0 % 10:53 AM PHOTORESIST CONTACT PRINTER LABORATORY Platelet Count 247 150 - 450 10/28/2021 UR CHILDREN 10e3/uL 10:53 AM PHOTORESIST CONTACT PRINTER LABORATORY Specimen Anatomical Collection Method / Collection Time Recei chelsey Time (Source) Location / Volume Laterality Blood STRUCTURE OF LEFT Venipuncture / 10/28/2021 10:23 10/08 HAND / Unknown Unknown AM PHOTORESIST CONTACT PRINTER 10:46 AM PHOTORESIST CONTACT PRINTER Anastasia Mejia MD LAB - BLOOD ORDERABLES Performing Organization Address City/State/ZIP Code Phon e Number [facility] [place] [address] [place] [address] [facility] [address] [place] [phone] Asymptomatic COVID-19 Virus (Coronavirus) by PCR Nose (10/28/2021 10:05 AM PHOTORESIST CONTACT PRINTER) Analysis Performed At Patho logist Time Signature SARS CoV2 PCR Negative Negative 10/28/2021 UR LABORATORY 10:40 AM PHOTORESIST CONTACT PRINTER Comment: NEGATIVE: SARS-CoV-2 (COVID-19) RNA not detected, presumed negative. Specimen Anatomical Collection Method Collection Time Receive d Time (Source) Location / / Volume Laterality Swab NASAL STRUCTURE / Non-blood 10/28/2021 10:05 01/22/ 2022 Unknown Collection / AM PHOTORESIST CONTACT PRINTER 10:12 AM PHOTORESIST CONTACT PRINTER Unknown Narrative UR LABORATORY - 10/28/2021 10:40 AM PHOTORESIST CONTACT PRINTER Testing was performed using the slim?? SARS-CoV-2 & Influenza A/B Assay on the slim?? Setphanie?? System. ??This test shoul d be ordered [...] exposure or clinical presentation sugges ts COVID-19. ??[facility] are certified under the Clinical Laborat ory Improvement Amendments of 1988 (CLIA-88) as qualified to perform moderate and/or high complexity laboratory testing. Anastasia Mejia MD LAB - MICRO GENERAL ORDERABL ES Performing Organization Address City/State/ZIP Code Phon [place] [address] Care Lab [facility], Room M309 Rubella Antibody IgG (External Result) (07/25/2021 12:00 PM CDT) [facility] Method Time Signature Rubella Nonreactive Nonreactive [facility] Antibody IgG [facility] (External) Comment: 10 Specimen (Source) Anatomical Collection Method Collection Time Re ceived Time Location / / Volume Laterality 07/25/2021 12:00 PM CDT [facility] - HIM EXTERNAL RESULT Performing Organization Address City/State/ZIP Code Phon e Number [facility] [address] [place] [address] [phone] Hepatitis B Surface Antigen (External Result) (07/25/2021 12:00 PM CDT) [facility] Method Time Signature Hepatitis B Nonreactive Nonreactive [facility] Antigen (External) Specimen (Source) Anatomical Collection Method Collection Time Re ceived Time Location / / Volume Laterality 07/25/2021 12:00 PM CDT January [facility] LAB - HIM EXTERNAL RESULT Performing Organization Address City/State/ZIP Code Phon e Number [facility] [address] [place] [address] HIV-1 Antibody (External Result) (07/25/2021 12:00 PM CDT) [facility] gist Method Time Signature HIV 1&2 Negative Nonreactive [facility] (External) Specimen (Source) Anatomical Collection Method Collection Time Re ceived Time Location / / Volume Laterality 07/25/2021 12:00 PM CDT [facility] LAB - HIM EXTERNAL RESULT Performing Organization Address City/[facility]/ZIP Code Phon e Number [facility] [address] [place] [address] documented in this encounter Visit Diagnoses Diagnosis Encounter for induction of labor documented in this encounter Admitting Diagnoses Diagnosis Encounter for induction of labor documented in this encounter Administered Medications Inactive Administered Medications - up to 3 most recent administrations Medication Order MAR Action Action Date Dose Rate Site acetaminophen (TYLENOL) tablet 650 Given 10/28/2021 6:26 PM PHOTORESIST CONTACT PRINTER 650 mg mg 650 mg, Oral, EVERY 4 HOURS PRN, mild pain, fever, greater than or equal to 38?? C /100.4?? F (oral) or 38.5?? C/ 101.4?? F (core)., Starting on 10/28/21 at 1039, Maximum acetaminophen dose from all sources = 75 mg/kg/day not to exceed 4 grams/day., Intrapartum acetaminophen (TYLENOL) tablet 975 mg Given 10/29/2021 9:06 AM PHOTORESIST CONTACT PRINTER 975 mg 975 mg, Oral, EVERY 6 HOURS, First dose on 10/28/21 at 2100, Scheduled acetaminophen (TYLENOL) until delivery for Intrapartum Intra-Amniotic Infection/Inflammation (Triple I). Nurse may discontinue this order with delivery. Maximum acetaminophen dose from all sources = 75 mg/kg/day not to exceed 4 grams/day., Intrapartum Given 10/29/2021 3:47 AM PHOTORESIST CONTACT PRINTER 975 mg Given 10/28/2021 10:21 PM PHOTORESIST CONTACT PRINTER 975 mg Acetazolamide ER 500mg (HOME MED) Nos Given 10/29/2021 8:48 AM PHOTORESIST CONTACT PRINTER 500 mg 500 mg, Oral, 2 TIMES DAILY, First dose on 10/28/21 at 2000 Given 10/28/2021 8:19 PM PHOTORESIST CONTACT PRINTER 500 mg ampicillin (OMNIPEN) 2 g vial to attach to NS New Bag 3:47 AM PHOTORESIST CONTACT PRINTER 2 g 100 mL bag STAT, 2 g, Intravenous, EVERY 6 HOURS, First dose on 10/28/21 at 2100, Give until delivery., Indications: Skin and Soft Tissue Infection, Intrapartum New Bag 10/28/2021 8:48 PM PHOTORESIST CONTACT PRINTER 2 g diphenoxylate-atropine (LOMOTIL) Given 10/28/2021 12:10 PM PHOTORESIST CONTACT PRINTER 2 tablets 2.5-0.025 MG per tablet 2 tablet 2 tablet, Oral, EVERY 6 HOURS PRN, diarrhea, Starting on 10/28/21 at 1230, Do not exceed 8 tabs in 24 hours, Intrapartum fentaNYL (PF) (SUBLIMAZE) 100 MCG/2ML in jection Starting on 10/28/21 at 1645, For 1 dose, Radames Busby ie: cabinet override fentaNYL (PF) (SUBLIMAZE) injection 100 mcg Given 10/28/2021 4:47 PM PHOTORESIST CONTACT PRINTER 100 mcg 100 mcg, Intravenous, ONCE, On 10/28/21 at 1700, For 1 dose fentaNYL (SUBLIMAZE) 2 mcg/mL, New Syringe/Cartridge 10/28/2021 5:34 PM PHOTORESIST CONTACT PRINTER ROPivacaine (NAROPIN) 0.1% in NaCl 0.9% for [...] pharmacy to send epidural tubing set., Routine [id number] 0.4-0.1-0.9 MG/2 00ML-% injection Angeline Heck: cabinet override Absolutely no anticoagul ants, thrombolytics or antiplatelet medications or other opioid analgesics or other sedatives without prior notification of anesthesiology. Fo r CADD cassettes, pharmacy to send epidural tubing set., 1 dose, Starting on 10/28/21 at 1703, Until 10/28/21 at 1734 gentamicin (GARAMYCIN) 140 mg in sodium New Bag 10/28/2021 9:29 PM PHOTORESIST CONTACT PRINTER 140 mg chloride 0.9 % 50 mL intermittent infusi on STAT, 140 mg (rounded from 132 mg = 2 mg/kg ? 66 kg Adjusted weight), Intravenous, ONCE, On 10/28/21 at 2100, For 1 dose, LOADING DOSE., Indications: Skin and Soft Tissue Infection, Intrapartum gentamicin (GARAMYCIN) infusion 100 mg New Bag 10/29/2021 6:08 AM PHOTORESIST CONTACT PRINTER 100 mg Routine, 100 mg (rounded from 99 mg = 1.5 mg/kg ? 66 kg Adjusted weight), Intravenous, EVERY 8 HOURS, First dose on 10/29/21 at 0500, Starting 8 hours after loading dose. Give until delivery., Indications: Skin and Soft Tissue Infection, Intrapartum HYDROmorphone (DILAUDID) injection 0.4 m g Given 10/28/2021 4:11 PM PHOTORESIST CONTACT PRINTER 0.4 mg 0.4 mg, Intravenous, EVERY 2 HOURS PRN, severe pain, with induction procedure., Starting on 10/28/21 at 1040, Intrapartum lactated ringers BOLUS 250 mL Rate/Dose Change 10/29/2021 5:37 AM PHOTORESIST CONTACT PRINTER Intravenous, 250 mL, ONCE PRN, other, hypotension, [...] ringers infusion New Bag 10/29/2021 2:32 AM PHOTORESIST CONTACT PRINTER 125 mL/hr at 25-125 mL/hr, Intravenous, CONTINUOUS PRN, Titrate lactated ringers rate to obtain total IV intake of 125 mL/hr. Total IV fluids should not exceed 125 mL/hr without provider order., Intrapartum, Starting on 10/28/21 at 1909, Until 10/29/21 at 0958 lactated ringers injection New Bag 10/28/2021 5:38 PM PHOTORESIST CONTACT PRINTER 1,000 mLs 125 mL/hr Angeline Busby: cabinet override, 1 dose, Starting on 10/28/21 at 1630, Until 10/28/21 at 1738 lactated ringers injection New Bag 10/28/2021 4:38 PM PHOTORESIST CONTACT PRINTER 1,000 mLs 999 mL/hr Angeline Busby: cabinet override, 1 dose, Starting on 10/28/21 at 1630, Until 10/28/21 at 1638 lamoTRIgine (LaMICtal) tablet 400 mg Given 10/29/2021 8:48 AM CS T 400 mg Pt-Supplied 400 mg, Oral, 2 TIMES DAILY, First dose (after last modification) on 10/28/21 at 2000, Patient to take home supply Given 10/28/2021 8:19 PM PHOTORESIST CONTACT PRINTER 400 mg Levetiracetam 1000mg tablet (HOME MED) A ur Given 10/29/2021 8:48 AM PHOTORESIST CONTACT PRINTER 1,000 mg 1,000 mg, Oral, 2 TIMES DAILY, First dose on 10/28/21 at 2000 Given 10/28/2021 8:20 PM PHOTORESIST CONTACT PRINTER 1,000 mg miFEPRIStone (MIFEPREX) tablet 200 mg Given 10/28/2021 12:11 PM PHOTORESIST CONTACT PRINTER 200 mg 200 mg, Oral, ONCE, On [...] tablet 400 mcg Given 10/28/2021 3:56 PM PHOTORESIST CONTACT PRINTER 400 mcg 400 mcg, Vaginal, EVERY 3 HOURS, First dose on 10/28/21 at 1300, Place in the posterior vaginal fornix. First dose to be administered concurrently with miFEPRIStone., Intrapartum Given 10/28/2021 12:09 PM PHOTORESIST CONTACT PRINTER 400 mcg nalbuphine (NUBAIN) injection 2.5-5 mg [...] mL/hr units in 500 mL 0.9% AM PHOTORESIST CONTACT PRINTER NaCl infusion 1-24 jose-units/min (1-24 mL/hr), Intravenous, [...] medication., Intrapartum Rate/Dose Change 10/29/2021 4:42 AM PHOTORESIST CONTACT PRINTER 18 jose-units/min 18 mL/hr Rate/Dose Change 10/29/2021 3:30 AM PHOTORESIST CONTACT PRINTER 16 jose-units/min 16 mL/hr phenylephrine (CELIA-SYNEPHRINE) 100 mcg/m L injection Starting on 10/28/21 at 1703, For 1 dose, Radames Busby ie: cabinet override Vesicant. phenylephrine (CELIA-SYNEPHRINE) injection 100 Given 6:41 PM PHOTORESIST CONTACT PRINTER 100 mcg mcg 100 mcg, Intravenous, EVERY [...] doses. Vesicant., Intrapartum Given 10/28/2021 6:34 PM PHOTORESIST CONTACT PRINTER 100 mcg documented in this encounter Active and Recently Administered Medications Times are shown in PHOTORESIST CONTACT PRINTER. Scheduled Medication Order 10/27/2021 10/28/2021 10/29/2021 acetaminophen [...] after each naloxone dose. Consider transfer to [facility] if patient respiratory parameters hav e not [...] doses.
documented in this encounter Care Teams Charter And Tour Bus Driver Relationship Specialty Start Date End Date [facility] PCP - General 09/05/17 [address] [place], [place] [phone] Gia Martínez MD Assigned OBGYN Provider 10/29/21 [address] [facility] [address] [place], [place] [id number] documented as of this encounter
--- OUTSIDE RECORDS SUMMARY | 2022-06-18 10:23 | XMS_ITS | Clinical Summary ---
:1985 Author Organization [facility] [place] [address] Care Team Providers Name Role Phone Juan Alberto Jackson MD Primary Care Provider Unavailable Allergies No known active allergies Medications Medication Sig Dispensed Refills Start Date End Date Status acetaZOLAMIDE (DIAMOX TAKE 1 BY MOUTH 0 10/28/2020 Active SEQUEL) 500 mg TWICE DAILY Extended-Release capsule folic acid 1 mg tablet Take 1 mg by 0 01/03/2021 Active mouth once daily. lamoTRIgine (LAMICTAL) Take 400 mg by 0 01/03/2021 Active 200 mg tablet mouth 2 times daily. levETIRAcetam (KEPPRA) Take 1,000 mg by 0 01/02/2021 Active 1,000 mg tablet mouth 2 times daily. Active Problems No known active problems Encounters Date Type Specialty Care Team Description 03/20/2022 Lab Requisition Shirley Whyte MD 03/19/2022 Lab Requisition Shirley Whyte MD from Last 3 Months Social History Tobacco Use Types Packs/Day Years Used Date Never Smoker Smokeless Tobacco: Never Used Sex Assigned at Date Recorded Not on file Obstetrics History Last Filed Vital Signs Vital Sign Reading Time Taken Comments Blood Pressure 111/74 01/18/2021 6:13 PM CDT Pulse 58 01/18/2021 6:13 PM CDT Temperature 36.9 ??C (98.5 ??F) 01/18/2021 6:13 PM CDT Respiratory Rate 14 01/18/2021 6:13 PM CDT Oxygen Saturation 98% 01/18/2021 6:13 PM CDT Inhaled Oxygen Concentration - - Weight - - Height - - Body Mass Index - - Plan of Treatment Health Maintenance Due Date Last Done Comments COVID-19 vaccine series (#1) 01/21/1988 Tdap 1998 Depression screening for age 12+ 1999 BMI (ht and wt on same day) for age 18+ 2005 Hepatitis C screening for age 18-79 2005 Tetanus booster 2007 Influenza for age 9-49 06/07/2022 Pap test for age 21-65 03/19/2025 03/19/2022, 03/19/2022 Procedures Procedure Name Priority Date/Time Associated Comments Diagnosis LEVETIRACETAM (KEPPRA) Routine 03/19/2022 12:15 R esults for this PM CDT procedure are i n the results section. LAB TRACKING EVENT Routine 03/19/2022 11:45 AM CDT SPA DIRECTOR/FINANCE THIN PREP PAP Routine 03/19/2022 11:45 Result s for this SCREEN IMAGED AM CDT procedure are in the results section. HPV THIN PREP Routine 03/19/2022 11:45 Results fo r this AM CDT procedure are i n the results section. from Last 3 Months Results LEVETIRACETAM (KEPPRA) (03/19/2022 12:15 PM CDT) [facility] Method Time Signature LEVETIRACETAM 21.1 6.0 - 46.0 03/20/2022 [employer] (KEPPRA) ug/mL 12:25 AM CDT LABORATORY-STACIE TRAL LABORATORY Specimen Anatomical Collection Method Collection Time Receive d Time (Source) Location / / Volume Laterality Blood BLOOD SPECIMEN / Client Collect / 03/19/2022 12:15 Unknown Unknown PM CDT 10:42 PM CDT Narrative [employer] [facility] - 03/20/2022 12:25 AM CDT Reference Range is based on Trough Steady State in patients receiving recommended daily dose. ??The relationship between serum concentrations and toxicity is not known. Bivaracetam (Briviact??) interferes with measurements of levetiracetam (Keppra??) in the ARK Levetiracetam Assay Shirley Whyte MD SEND OUTS Performing Organization Address City/State/ZIP Code Phon e Number [employer] [address] [place] [address] LABORATORY-CENTRAL 2000 LABORATORY LAB TRACKING EVENT (03/19/2022 11:45 AM CDT) Specimen Anatomical Collection Method Collection Time Receive d Time (Source) Location / / Volume Laterality Other (Other) Client Collect / 03/19/2022 11:45 2021 3:41 Unknown AM CDT PM CDT Shirley Whyte MD LAB BILL ONLY Performing Organization Address City/State/ZIP Code Phon e Number [employer] [address] [place] [address] LABORATORY-CENTRAL 2000 LABORATORY SPA DIRECTOR/FINANCE THIN PREP PAP SCREEN IMAGED (03/19/2022 11:45 AM CDT) Component Value Ref Test Analysis Performed At [facility] gist Range Method Time Signature Case Report Gynecologic Cytology Report ? Case: [id number] ? 04/05/2022 [facility] Authorizing Provider: ??Shirley Tena ?Collected: ? 03/19/2022 1145 ? 11:33 AM HEAL TH ? MD Adrienne ? CDT LABORATORY-C Ordering Location: ? [facility] CENTRAL LAB ?Received: ?03/21/2022 0736 ? EN TRAL First Screen: ? Jason, Izzy ? LABORATORY Rescreen: ?Vale Hutchinson ? Specimen: ?SPA DIRECTOR/FINANCE ThinPrep Vial Screening, Cervical/Vaginal ? INTERPRETATI NEGATIVE FOR (none) 04/05/2022 [facility] Scarlett ctronically ON/RESULT INTRAEPITHELIAL 11:33 AM HEALTH sign ed by LESION OR CDT LABORATORY-C Vale Hutchinson on MALIGNANCY (NIL) ENTRAL 03/09 at LABORATORY 11:33 AM SPECIMEN Satisfactory for evaluation 04/05/2022 A [facility] ADEQUACY No endocervical component seen 11:33 AM HEALTH CDT LABORATORY-C ENTRAL LABORATORY HPV REQUEST HPV and PAP 04/05/2022 [facility] 11:33 AM HEALTH CDT LABORATORY-C ENTRAL LABORATORY Date of LMP 04/05/2022 [facility] 11:33 AM HEALTH CDT LABORATORY-C ENTRAL LABORATORY Comment: Unknown Last Pap Date 04/05/2022 11:[address] [facility] LABORATORY-CENTRAL LABORATORY Comment: 2017 Last Pap Result NIL 04/05/2022 11:33 AM [facility] CDT LABORATORY-CENTRAL LABORATORY Menstrual Status 04/05/2022 11:33 AM [facility] Fiz CDT LABORATORY-CENTRAL LABORATORY Additional Information 04/05/2022 11:33 AM [facility]iz CDT LABORATORY-CENTRAL LABORATORY Comment: Interpreted at [facility], Central Laboratory - [address], [place] [address] Automated Review Successful 04/05/2022 11:[address] [facility] CDT LABORATORY-CENTRAL L ABORATORY Comment: Specimen processed successfully by automated hose coupling joiner device, ThinPrep Imaging System, [employer] ANCILLARY TESTING HPV Ordered, 04/05/2022 11:33 [facility] SPA DIRECTOR/FINANCE Please see AM CDT LABORATORY-CENTRAL separate report LABORATORY Note The pap test is a 04/05/2022 11:33 [facility] screening AM CDT LABORATORY-CENTRAL technique, not a LABORATORY diagnostic procedure. It is used primarily to screen for squamous cancers and precursor lesions. Published studies have shown that it is subject to both false negative and false positive results. The pap test should not be used as the sole means to diagnose or exclude pre-malignant and malignant lesions. Specimen Anatomical Collection Method Collection Time Receive d Time (Source) Location / / Volume Laterality Other 03/19/2022 11:45 03/21/2022 7:36 (Cervical/Vagina AM CDT AM CDT l) Shirley Whyte MD PATHOLOGY/CYTOLOGY Performing Organization Address [facility] Phon e Number [facility] [address] [place], [place] [address] [address] LABORATORY-CENTRAL 2000 LABORATORY HPV HIGH RISK (03/19/2022 11:45 AM CDT) Analysis Performed At Path logist Time Signature TYPE 16 Negative Negative 03/22/2022 [facility] 3:15 PM CDT LABORATORY-STACIE TRAL LABORATORY TYPE 18 Negative Negative 03/22/2022 [facility] 3:15 PM CDT LABORATORY-STACIE TRAL LABORATORY OTHER HIGH Negative Negative 03/22/2022 [facility] RISK TYPES 3:15 PM CDT LABORATORY-STACIE TRAL LABORATORY Specimen Anatomical Collection Method Collection Time Receive d Time (Source) Location / / Volume Laterality Other 03/19/2022 11:45 03/21/2022 7:36 (Cervical/Vagina AM CDT AM CDT l) Narrative [facility] LABORATORY-CENTRAL LABORAT ORY - 03/22/2022 3:15 PM CDT HPV types 16, 18, 31, 33, 35, 39, 45, 51, 52, 56, 58, 59, 66 and 68 DNA were undetectable or below the pre-set threshold. Methodology: [employer] 4800 HPV Test Shirley Whyte MD MICROBIOLOGY Performing Organization Address [facility] Phon e Number [facility] [address] [place] [address] LABORATORY-CENTRAL 2000 LABORATORY from Last 3 Months Insurance Payer Benefit Plan / Subscriber ID Effective Dates Phone Addre ss Type Group BLUE [employer]OSS BLUE [employer]OSS OF [id number] 2018-Present [address] [address] [place] [address] Care Teams Packing House Laborer Relationship Specialty Start Date End Date Juan Alberto Jackson MD PCP - General 09/20/08
--- OUTSIDE RECORDS SUMMARY | 2022-06-18 10:23 | XMS_ITS | Encounter Summary ---
:1985 Author Organization [place] Address [address] [place] [address]. [place] [id number] Care Team Providers Name Role Phone [facility] Primary Care Provider [phone] Gia Martínez MD Unavailable [phone] Encounter Details Date Type Department Care Team Description 11/21/2021 Telephone [facility] Gia Martínez MD [address] [place] [address] [address] [place] [address] [place] [phone] Social History Tobacco Use Types Packs/Day Years Used Date Never Smoker Smokeless Tobacco: Never Used Alcohol Use Standard Drinks/Week Comments Not Currently 0 (1 standard drink = 0.6 oz pure alcoho l) occ Sex Assigned at Date Recorded Not on file COVID-19 Exposure Response Date Recorded In the last month, have you been in contact with No / Unsure 10/28/2021 8:34 AM BUTTON SEWER HAND someone who was confirmed or suspected to [...] 10:33 AM CDT RN attempting to contact branch billing payroll clerk about this case. Liyah Loza RN Telephone [...] today to update her. 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 Can you help with the coding request? I don't know what they are talking about. Thanks, Gia Martínez MD ON SEWER HAND Telephone Encounter - Liyah Loza RN - [...] Trinity can be updated. Liyah Loza RN ON SEWER HAND documented in this encounter Plan of Treatment Not on filedocumented as of this encounter Visit Diagnoses Not on filedocumented in this encounter Care Teams Tree Fruit And Nut Farming Supervisor Relationship Specialty Start Date End Date [facility] PCP - General 09/05/17 [address] [place], [place] [phone] Gia Martínez MD Assigned OBGYN Provider 10/29/[address] [place] [address] documented as of this encounter
--- OUTSIDE RECORDS SUMMARY | 2022-06-18 10:23 | XMS_ITS | Clinical Summary ---
:1985 Author Organization [place] Address [address] [place] [address] Care Team Providers Name Role Phone [facility] Primary Care Provider [phone] Gia Martínez MD Unavailable [phone] Allergies No known active allergies Medications [...] Comments Blood Pressure 107/66 10/29/2021 11:27 AM STORE DETECTIVE Pulse 57 06/16/2013 7:52 AM CDT Temperature 37 ??C (98.6 ??F) 10/29/2021 6:23 AM STORE DETECTIVE Respiratory Rate 99 10/29/2021 8:38 AM STORE DETECTIVE Oxygen Saturation 100% 10/29/2021 12:01 PM STORE DETECTIVE Inhaled Oxygen Concentration - - Weight 79.4 kg (175 lb) 10/28/2021 9:00 AM STORE DETECTIVE Height 165.1 cm (5' 5) 10/28/2021 9:00 AM STORE DETECTIVE Body Mass Index 29.12 10/28/2021 9:00 AM STORE DETECTIVE Plan of Treatment Health Maintenance Due Date [...] ss Type Group BCBS BCBS OUT OF [id number] 2021-Present [phone] [address] [address] [place] [address] Advance Directives For more information, please contact: [phone] Latest Code Status on File Code Status Date Activated Date Inactivated Comments Full Code 10/28/2021 6:54 PM 10/29/2021 4:58 PM All basic an d advanced life-sustaining interventions are performed as pepito ropriate Code status determined by: Discussion with patient/ legal de cision maker Care Teams Tosser Relationship Specialty Start Date End Date [facility] Medical PCP - General 09/05/17 [address] [place], [place] [phone] Gia Martínez MD Assigned OBGYN Provider 10/29/[address] [address]
--- OUTSIDE RECORDS SUMMARY | 2022-06-18 10:23 | XMS_ITS | Encounter Summary ---
:1985 Author Organization [facility] Address [address] [place] [address] Care Team Providers Name Role Phone [facility] Primary Care Provider [phone] Reason for Visit Reason Onset Date Comments social work referral 10/27/2021 Encounter Details Date Type Department Care Team Description 10/27/2021 Telephone UR CASE MANAGEMENT Jennifer social work referral [phone] Mei Sanchez [facility] Social History Tobacco Use Types Packs/Day Years Used Date Never Smoker Alcohol Use Standard Drinks/Week Comments Yes 0 (1 standard drink = 0.6 oz pure alcoho l) occ Sex Assigned at Date Recorded Not on file COVID-19 Exposure Response Date Recorded In the last month, have you been in contact with No / Unsure 10/26/2021 1:52 PM COLORIST someone who was confirmed or suspected to have Coronavirus / COVID-19? documented as of this encounter Miscellaneous Notes Telephone Encounter - Mei Rodriguez LICSW - 10/27/2021 3:33 PM COLORIST Received return phone call from patient. Her [...] madeone call to the [employer] [place] to learn about their fees. The family does express some concern about finances so I did share information about [facility]. * Family knows this baby is a boy and they have chosen the name ???Avtar?? * Lilia have a 2.5 year-old daughter named Denita. They have some interest in having her come to the hospital for a visit to meet Avtar after delivery. This potential visit request has beenescalated to [employer] electronics commodity manager, Ce Gonzáles with request for compassionate [...] made an initial referral Cleo Villagomez- the cardiology coordinator ([phone]). Nursing staff to please contact [facility] again when family is ready for photos. * Trinity and Amrit shared they are not yazidism but thought a registered nurse nursery visit for spiritual support and potential ritual would be very helpful and comforting. They asked that a registered nurse nursery please come see them. The on-call socia work team has been notified of this family's planned induction of labor and will follow-up. The on-call social human services assistants can be reached via pager [phone]. RIST documented in this encounter Plan of Treatment Not on filedocumented as of this encounter Visit Diagnoses Not on filedocumented in this encounter Care Teams Bottom Crane Operator Relationship Specialty Start Date End Date [facility] Medical PCP - General 09/05/17 [address] [place] [address] documented as of this encounter
--- OUTSIDE RECORDS SUMMARY | 2022-06-18 10:23 | XMS_ITS | Encounter Summary ---
:1985 Author Organization [facility] Address [address] [place] [address]. [place] [address] Care Team Providers Name Role Phone [facility] Primary Care Provider [phone] Gia Martínez MD Unavailable [phone] Reason for Visit Auth/Cert Specialty Diagnoses / Procedures Referred By Contact Refer red To Contact dietetics director Diagnoses Encounter for induction of labor Maternity elizabeth: 03/07/22 IOL Encounter for induction of labor Ur [facility] [address] [place] [phone] Phone: Referral ID Status Reason Start Date Expiration Date Visits Requ ested Visits Authorized [id number] 1 1 Encounter Details Date Type Department Care Team Description 10/28/2021 Anesthesia Event [facility] Aysha Schmitz MD [address] [place], [place] [address] [facility] Charley Oliveira MD [address] [place], [place] [address] [address] [place] [phone] Anesthesia Record Procedure Summary Procedure Name [...] with No / Unsure 10/28/2021 8:34 AM LENS CLEANER someone who was confirmed or suspected to [...] Past Surgical History: Procedure Laterality Date ??? ANIMAL ATTENDANT SURGERY 4th degree vaginal laceration ? ? [...] and realistic alternatives discussed. Questions answered and patient/business banking representative(s) expressed understanding. 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 Patient requested epidural catheter for labor, completed on10/28/[address] Oliveira. Aysha Contreras MD CLEANER Anesthesia Procedure Notes - hCarley Oliveira MD - 10/28/2021 6:50 PM LENS CLEANER Associated Order(s): Epidural Block Epidural catheter Procedure [...] lidocaine 1.5% w/ 1:200,000 epinephrine at 17:01 LENS CLEANER. Test dose negative, 3 minutes after injection, for signs of intravascular, subdural, or intrathecalinjection. Insertion/Infusion Method: LORT saline No aspiration negative for Heme or CSF via Epidural Catheter. Medication(s) Administered 0.125% bupivacaine (Epidural), 8 mL Medication Administration Time: 10/28/2021 5:03 PM CLEANER documented in this encounter Plan of Treatment Not on filedocumented as of this encounter Procedures Procedure Name Priority Date/Time Associated Diagnosis Comme nts ANE EPIDURAL BLOCK Routine 10/28/2021 5:03 PM Res ults for this LENS CLEANER procedure are i n the results section. documented in this encounter Results FV AN EPIDURAL DUMMY PERFORMABLE (10/28/2021 5:03 PM LENS CLEANER) Narrative Charley Oliveira MD - 10/28/2021 5:03 PM LENS CLEANER Charley Oliveira MD ? 10/28/2021 ??6:51 PM [...] lidocaine 1.5% w/ 1:200,000 epinephrine at 17:01 LENS CLEANER. ? Test dose negative, 3 minutes aft er injection, for signs of intravascular, subdural, or intrathecal injection. ? Insertion/Infusion Method: LORT s asher ? No aspiration negative for Heme o r CSF via Epidural Catheter. Medication(s) Administered 0.125% bupivacaine (Epidural), 8 mL Medication Administration Time: 5:03 PM Charley Oliveira MD [facility] ANESTHESIA documented in this encounter Visit Diagnoses Not on filedocumented in this encounter Administered Medications Inactive Administered Medications - up to 3 most recent administrations Medication Order MAR Action Action Date Dose Rate Site bupivacaine (MARCAINE) 0.125 % Given 10/28/2021 5:03 PM LENS CLEANER 8 mL s injection (diluted from stock concentration by or ASSET MANAGEMENT LEAD) EPIDURAL, Starting on 10/28/21 at 1703, Anesthesia Intra-op documented in this encounter Care Teams Library Services Assistant Relationship Specialty Start Date End Date [facility] PCP - General 09/05/17 [address] [facility], [place] [phone] Gia Martínez MD Assigned OBGYN Provider 10/29/[address] [place] [address] documented as of this encounter
--- OUTSIDE RECORDS SUMMARY | 2022-06-18 10:24 | XMS_ITS | Encounter Summary ---
:1985 Author Organization [place] Address [address] [place] [address]. [place] [address] Care Team Providers Name Role Phone [facility] Primary Care Provider [phone] Encounter Details Date Type Department Care Team Description 10/27/2021 Telephone [facility] MD Karina [address] [place] [address] [place] [address] [address] [place] [address] [place] [address] [phone] Social History Tobacco Use Types Packs/Day Years Used Date Never Smoker Alcohol Use Standard Drinks/Week Comments Yes 0 (1 standard drink = 0.6 oz pure alcoho l) occ Sex Assigned at Date Recorded Not on file COVID-19 Exposure Response Date Recorded In the last month, have you been in contact with No / Unsure 10/28/2021 8:34 AM BRANCH STORE MANAGER someone who was confirmed or suspected [...] things worked out today. Amelia Smith RN CH STORE MANAGER Telephone Encounter - Leadley, Gia Karina, MD - 10/27/2021 10:58 AM BRANCH STORE MANAGER Trinity Ramirez is a 36 year old at 21w2d who was previously getting care in [facility] recently found to have multiple severe anomalies. She is scheduled for induction termination tomorrow 10/28. Can you call the hospital social sciences professor who works on labor and delivery to make sure that they contact her today? (if you call L&D they have the contact info). The patient wants tomake cremation arrangements for remains today before delivery if possible. I called the resource conservation specialist social sciences professor at the end of the day yesterday and she said she'd pass it on but I want to make sureto close the loop and confirm that the social workers at the hospital know about her. Thanks, Gia Martínez MD CH STORE MANAGER documented in this encounter Plan of Treatment Not on filedocumented as of this encounter Visit Diagnoses Not on filedocumented in this encounter Care Teams Japanese Interpreter Relationship Specialty Start Date End Date [facility] Medical PCP - General 09/05/17 [address] [place] [address] documented as of this encounter
--- OUTSIDE RECORDS SUMMARY | 2022-06-18 10:24 | XMS_ITS | Encounter Summary ---
:1985 Author Organization [place] Address [address] [place] [address]. [place] [address] Care Team Providers Name Role Phone [facility] Primary Care Provider [phone] Ernestina Shah MD Unavailable Reason for Visit Reason Onset Date Comments Call To Schedule Appointment 09/01/2018 Encounter Details Date Type Department Care Team Description 09/01/2018 Telephone [facility] Louise Johnson Call T o Schedule Maternal Medicine Appo intment [place] [address] Social History Tobacco Use Types Packs/Day Years Used Date Never Smoker Alcohol Use Standard Drinks/Week Comments Yes 0 (1 standard drink = 0.6 oz pure alcoho l) occ Sex Assigned at Date Recorded Not on file documented as of this encounter Miscellaneous Notes Telephone Encounter - Louise Johnson - 09/01/2018 11:42 AM CST [facility] received a referral for patient and [facility] wanted to see her for a FTS appointment. Patient is now past FTS dates and has not returned MFM calls. Orders for FTS removed. Will continue to try to schedule future appts. Louise Li Coat Operator, JEREMY POUNCER MACHINE OPERATOR documented in this encounter Plan of Treatment Not on filedocumented as of this encounter Visit Diagnoses Not on filedocumented in this encounter Care Teams Door To Door Sales Representative Relationship Specialty Start Date End Date [facility] PCP - General 09/05/17 [address] [place] [address] Ernestina Shah MD MD Neurology 09/05/17 10/28/18 [facility] [address] [id number] documented as of this encounter
--- OUTSIDE RECORDS SUMMARY | 2022-06-18 10:24 | XMS_ITS | Encounter Summary ---
:1985 Author Organization [place] Address [address] [place] [address]. [place] [address] Care Team Providers Name Role Phone [facility] Primary Care Provider [phone] Reason for Visit Auth/Cert - Closed Specialty Diagnoses / Procedures Referred By Contact Refer red To Contact Surgery Diagnoses Chronic Tonsilitis Rh Periop Services Procedures TONSILLECTOMY [address] [place] [address] [phone] Fax: Referral ID Status Reason Start Date Expiration Date Visits Requ ested Visits Authorized [id number] Closed 1 1 Encounter Details Date Type Department Care Team Description 02/18/2013 Hospital Encounter [facility] Tomasz Loya, Chronic tonsillitis [place] [facility] MD (Primary Dx) Anesthesia Care [facility] [address] [place], [place] [address] [facility] [phone] [place] [address] [place], [place] [phone] Social History Tobacco Use Types Packs/Day Years [...] ML AT 2:10 PM TONSILLECTOMY DISCHARGE INSTRUCTIONS [facility], Akbar Guzman M.D. Phill Kahn M.D. [...] It is best to stay in the [facility] area for the two week healing period. [...] have any problems or questions, please call [phone], 24 hours a day. GENERAL ANESTHESIA OR [...] Component Value Ref Test Analysis Performed At [facility] Range Method Time Signature Copath Report Patient Name: TRINITY AYALA MR#: [id number] Specimen #: [id number] Collected: 02/18/2013 Received: 02/18/2013 Reported: 02/19/2013 16:17 [...] serial sections, no gross lesions are identified. ??Applier section is submitted in one cassette. B. ??The specimen, labeled left tonsil, consists of formal in-fixed morin to pink to hemorrhagic soft palatine tonsil measuring 2.5 cm x 1.5 cm x 1 cm. ??On serial sections, no gross lesions are identified. Applier section is submitted in one cassette. ??MGP/s g MICROSCOPIC: A. and B. ??Microscopic examination is performed. SA/andreea DT/02-19-13 TESTING LAB LOCATION: [address] ??[id number] COLLECTION SITE: Client: [facility] Location: RHOR (R) Specimen Anatomical Collection Method Collection Time Receive d Time (Source) Location / / Volume Laterality 02/18/2013 1:15 PM 3 1:45 CDT PM CDT Tomasz Loya MD LAB - BEAKER AP Performing Organization Address City/State/ZIP Code Phon e Number COPATH HCG qualitative urine (02/18/2013 10:10 AM CDT) P athologist Signature HCG Qual Urine Negative NEG [facility] LAB Specimen Anatomical Collection Method Collection Time Receive d Time (Source) Location / / Volume Laterality Urine specimen URINE SPECIMEN / 02/18/2013 10:10 02/18 (specimen) Unknown AM CDT 10:23 AM CDT Allan Garrett MD LAB - URINE ORDERABLES Performing Organization Address City/State/ZIP Code Phon e Number M [facility] [address] [place] [address] [facility] LAB documented in this encounter Visit Diagnoses [...] Intra-procedure documented in this encounter Care Teams Territory Account Executive Relationship Specialty Start Date End Date [facility] PCP - General 02/04/13 06/15/13 documented as of this encounter
--- OUTSIDE RECORDS SUMMARY | 2022-06-18 10:24 | XMS_ITS | Encounter Summary ---
:1985 Author Organization [place] Address [address] [place] [address] Care Team Providers Name Role Phone [facility] Primary Care Provider [phone] Reason for Visit Reason Onset Date Comments social work referral 10/27/2021 Encounter Details Date Type Department Care Team Description 10/27/2021 Telephone [facility] CASE MANAGEMENT social Jennifer work referral [id number] ATUL Gonzalez Social History Tobacco Use Types Packs/Day Years Used Date Never Smoker Alcohol Use Standard Drinks/Week Comments Yes 0 (1 standard drink = 0.6 oz pure alcoho l) occ Sex Assigned at Date Recorded Not on file COVID-19 Exposure Response Date Recorded In the last month, have you been in contact with No / Unsure 10/26/2021 1:52 PM ENTERPRISE DATA ARCHITECT someone who was confirmed or suspected to have Coronavirus / COVID-19? documented as of this encounter Miscellaneous Notes Telephone Encounter - Mei Rodriguez LICSW - 10/27/2021 12:05 PM ENTERPRISE DATA ARCHITECT Received referral with request for social work to contact patient this afternoon to discuss her wishes related to disposition after delivery. Phone call to patient. No answer but message left with my direct contact information. VIOLETA informed patient on the voice mail that I am available until 4:30 today and encouraged her to give me a call back. RPRISE DATA ARCHITECT documented in this encounter Plan of Treatment Not on filedocumented as of this encounter Visit Diagnoses Not on filedocumented in this encounter Care Teams Coil Finisher Relationship Specialty Start Date End Date [facility] PCP - General 09/05/17 [address] [place] [address] documented as of this encounter
--- OUTSIDE RECORDS SUMMARY | 2022-06-18 10:24 | XMS_ITS | Encounter Summary ---
:1985 Author Organization [place] Address [facility] [place] [address] Care Team Providers Name Role Phone [facility] Primary Care Provider [phone] Reason for Visit Reason Onset Date Comments Clinic Care Coordination - Initial 10/24/2021 Encounter Details Date Type Department Care Team Description 10/24/2021 Telephone [facility] Larissa Hernandez, Clinic Care Coordination Maternal Medicine GC - Initial [address] [facility] [address] [place] [phone] Social History Tobacco Use Types Packs/Day Years [...] OB provider may be able to contact [facility] directly to coordinate this care. I provided Trinity with the phone number for [facility]. I encouraged her to reach out if we can help any further. However, I reiterated that I cannot help coordinate care directly unless Trinity becomes our patient. Larissa Hernandez MS, [facility] Licensed Genetic Counselor [facility] Maternal Medicine [email or web address] [phone] GNER AND PATTERNMAKER Telephone Encounter - Larissa Hernandez GC - 10/24/2021 1:53 PM CST October 24, 2021 I reached out to Trinity to discuss a referral we received from her OB provider. 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 These included a heart defect, multiple choroid plexus cysts, lagging growth, possibly abnormal limbs, and other features. Trinity's OB provider edinson [id number] yesterday. Given Trinity's gestational age, we reviewed [...] Trinity does not feel that coming to [facility] and getting more imaging is going to change the course of her at this time, and she does not wish to proceed with amniocentesis. I strongly encouraged Trinity to reach back out to her OB provider to coordinate next steps. Larissa Hernandez MS, [facility] Licensed Genetic Counselor [facility] Maternal Medicine [email or web address] [phone] GNER AND PATTERNMAKER documented in this encounter Plan of Treatment Not on filedocumented as of this encounter Visit Diagnoses Not on filedocumented in this encounter Care Teams Physical Ther Relationship Specialty Start Date End Date [facility] PCP - General 09/05/17 [address] [address] [place], [place] [phone] documented as of this encounter
--- OUTSIDE RECORDS SUMMARY | 2022-06-18 10:24 | XMS_ITS | Encounter Summary ---
:1985 Author Organization [place] Address [address] [place] [address]. [place] [address] Care Team Providers Name Role Phone [facility] Primary Care Provider [phone] Encounter Details Date Type Department Care Team [...] with No / Unsure 10/26/2021 1:52 PM WEB MOBILE DESIGNER someone who was confirmed or suspected to have Coronavirus / COVID-19? documented as of this encounter Plan of Treatment Not on filedocumented as of this encounter Visit Diagnoses Not on filedocumented in this encounter Care Teams All Around Gear Machine Operator Relationship Specialty Start Date End Date [facility] PCP - General 09/05/17 [address] [address] [place], [place] [id number] documented as of this encounter
--- OUTSIDE RECORDS SUMMARY | 2022-06-18 10:24 | XMS_ITS | Encounter Summary ---
:1985 Author Organization [place] Address [address] [place] [address] Care Team Providers Name Role Phone Unavailable Primary Care Provider Unavailable Encounter Details Date Type Department Care Team Description 03/07/2007 Historic Results INTERFACED REPORT Shayne Kidd EMERGENCY PHYSIC [place] [address] [place] [address] (Wo rk) Social History Tobacco [...] UA with microscopic (03/07/2007 3:09 AM CDT) [facility] Method Time Signature Source Midstream MISYS Urine Color Urine Yellow MISYS Appearance Urine Clear MISYS Glucose Urine Negative NEG mg/dL MISYS Bilirubin Urine Negative NEG MISYS Ketones Urine Negative NEG mg/dL MISYS Specific [place] 1.024 1.003 - MISYS Urine 1.035 Blood [...] LAB - URINE ORDERABLES Performing Organization Address [facility] Phon e Number MISYS HCG qualitative urine (03/07/2007 3:09 AM CDT) P athologist Signature HCG Qual Urine Negative NEG MISYS Specimen Anatomical Collection Method Collection Time Receive d Time (Source) Location / / Volume Laterality 03/07/2007 3:09 AM 7 2:17 CDT AM CDT Walt Kidd LAB - URINE ORDERABLES Performing Organization Address [facility] Phon e Number MISYS Levetiracetam level (03/07/2007 2:28 AM CDT) Analysis Performed At Patho logist Time Signature Levetiracetam 5.6 MISYS Level Comment: Unit: ug/ml (Note) EXPECTED STEADY STATE TROUGH CONCENTRATI ONS IN PATIENTS RECEIVING RECOMMENDED DAILY DOS AGES: 5 - 45 ug/ml. TOXIC RANGE HAS NOT BEEN ESTABLISHED. Analysis performed by [facility] [address] [place] [address] Specimen Anatomical Collection Method Collection Time Receive d Time (Source) Location / / Volume Laterality 03/07/2007 2:28 AM 7 2:17 CDT AM CDT Walt Kidd LAB - BLOOD ORDERABLES Performing Organization Address [facility] Phon e Number MISYS (ABNORMAL) Basic [...]
--- OUTSIDE RECORDS SUMMARY | 2022-06-18 10:24 | XMS_ITS | Encounter Summary ---
:1985 Author Organization [place] Address [address] [place] [address] Care Team Providers Name Role Phone [facility] Primary Care Provider [phone] Ernestina Shah MD Unavailable Encounter Details Date Type Department Care Team Description 09/05/2017 Hospital Encounter [facility] Ernestina Shah Non intractable [facility] MD Adriana generalized idiopathic [address] [facility] OF epilepsy wi th status Blvd NEUROLOGY epilepticus (H) [place], [place] [address] [address] [facility] [address] [place] [address] Social History Tobacco Use Types [...] 7:19 Nonintractable Resul ts for this AM LIFE SKILLS SPECIALIST generalized idiopathic proce dure are in epilepsy with status the res ults epilepticus (H) section. KEPPRA Routine 09/05/2017 7:19 Nonintractable Results fo r this (LEVETIRACETAM) LEVEL AM LIFE SKILLS SPECIALIST generalized idiopat hic procedure are in epilepsy with status the res ults epilepticus (H) section. COMPREHENSIVE Routine 09/05/2017 7:19 Nonintractable Results f or this METABOLIC PANEL AM LIFE SKILLS SPECIALIST generalized idiopathic pr ocedure are in epilepsy with status the res ults epilepticus (H) section. documented in this encounter Results (ABNORMAL) Keppra (Levetiracetam) Level (09/05/2017 7:19 AM LIFE SKILLS SPECIALIST) athologist Signature Keppra 2 (L) 12 - 46 09/06/2017 [facility] (Levetiracetam) ug/mL 3:44 AM [facility] Comment: (Note) INTERPRETIVE INFORMATION: Keppra (Leveti racetam) Therapeutic Range: ??12-46 ug/mL ? Toxic: ??Not well Establ ished Pharmacokinetics of levetiracetam are af fected by renal function. Adverse effects may include so mnolence, weakness, headache and vomiting. Performed by [facility], [address] [place] [id number] [email or web address], Francisco [email or web address] MD, Lab. Director Specimen Anatomical Collection Method Collection Time Receive d Time (Source) Location / / Volume Laterality Blood specimen 09/05/2017 7:19 AM 017 7:20 (specimen) LIFE SKILLS SPECIALIST AM LIFE SKILLS SPECIALIST Ernestina Shah MD LAB - BLOOD ORDERABLES Performing Organization Address [facility] Phon e Number [facility] [address] [place], [place] [address] [facility] [address] [place], [place] [address], [facility] [phone] Lamotrigine Level (09/05/2017 7:19 AM [facility]) athologist Signature Lamotrigine 5.1 2.5 - 15.0 09/06/2017 [place] Level ug/mL 3:44 AM [facility] Comment: (Note) INTERPRETIVE INFORMATION: ??Lamotrigine Therapeutic Range: ??2.5-15.0 ug/mL ? Toxic: ??Not well establ ished Pharmacokinetics varies widely, particul leon with co-medications and/or compromised renal function. ??Adverse effects may include dizziness, somnolenc e, nausea and vomiting. Performed by [facility], [address] [place] [id number] [email or web address], Francisco Rubio MD, Lab. Director Specimen Anatomical Collection Method Collection Time Receive d Time (Source) Location / / Volume Laterality Blood specimen 09/05/2017 7:19 AM 017 7:20 (specimen) LIFE SKILLS SPECIALIST AM LIFE SKILLS SPECIALIST Ernestina Shah MD LAB - BLOOD ORDERABLES Performing Organization Address [facility]/ZIP Code Phon e Number [facility] [address] [place], [place] [address] [facility] [address] [place] [address], [facility] [phone] (ABNORMAL) Comprehensive metabolic panel (BMP + Alb, Alk Phos, ALT, AST, Total. Bili, TP) (09/05/2017 7:19 AM [facility]) athologist Signature Sodium 141 133 [...] 66 >60 09/05/2017 [facility] mL/min/1.7 7:[address] Comment: Non GFR Calc GFR Estimate If 80 >60 mL/min/1.7m2 09/05/2017 7:44 A [facility] Comment: GFR Calc Calcium 8.9 8.5 - 10.1 mg/dL 09/05/2017 7:44 AM [facility] Bilirubin Total 0.6 0.2 - 1.3 mg/dL 09/05/2017 7:44 AM [facility] Albumin 4.0 3.4 - 5.0 g/dL 09/05/2017 7:44 AM [facility] Protein Total 7.4 6.8 - 8.8 g/dL 09/05/2017 7:44 AM [facility] Alkaline Phosphatase 65 40 - 150 U/L 09/05/2017 7:44 AM [facility] ALT 16 0 - 50 U/L 09/05/2017 7:44 AM [facility] Jen [facility] AST 13 0 - 45 U/L 09/05/2017 7:44 AM [facility] Specimen Anatomical Collection Method Collection Time Receive d Time (Source) Location / / Volume Laterality Blood specimen 09/05/2017 7:19 AM 017 7:20 (specimen) LIFE SKILLS SPECIALIST AM LIFE SKILLS SPECIALIST Ernestina Shah MD LAB - BLOOD ORDERABLES Performing Organization Address City/State/ZIP Code Phon e Number M [facility] [address] [place] [address] [facility] [address] [place], [place] [address] [facility] [phone] documented in this encounter Visit Diagnoses Diagnosis 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
--- OUTSIDE RECORDS SUMMARY | 2022-06-18 10:24 | XMS_ITS | Encounter Summary ---
:1985 Author Organization [place] Address [address] [place] [address]. [place] [address] Care Team Providers Name Role Phone [facility] Primary Care Provider [phone] Reason for Visit Auth/Cert - Closed Specialty Diagnoses / Procedures Referred By Contact Refer red To Contact Surgery Diagnoses Chronic Tonsilitis Rh Periop Services Procedures TONSILLECTOMY [address] [place], [place] [address] Fax: Referral ID Status Reason Start Date Expiration Date Visits Requ ested Visits Authorized [id number] Closed 1 1 Encounter Details Date Type Department Care Team Description 02/18/2013 Anesthesia Event [facility] Ronald Gonzáles MD [facility] ANESTHESIA NETWORK [address] [place], [place] [address] [facility] Jayleen Donaldson APRN PROCESSING SPEC S [facility] [address] [place], [place] [address] [address] [place] [address] Anesthesia Record Procedure Summary Procedure Name Responsible [...] benefits and alternatives discussed with: patient or containers sales representative. History & Physical Review History and [...] Intra-op documented in this encounter Care Teams Ripsaw Matcher Relationship Specialty Start Date End Date [facility] PCP - General 02/04/13 06/15/13 documented as of this encounter
--- OUTSIDE RECORDS SUMMARY | 2022-06-18 10:24 | XMS_ITS | Encounter Summary ---
:1985 Author Organization [place] Address [address] [place] [address] Care Team Providers Name Role Phone Unavailable Primary Care Provider Unavailable Encounter Details Date Type Department Care Team Description 07/24/2007 Historic Results INTERFACED REPORT Joe Barton MD [facility] [address] [place], [place] [address] (Wo rk) Social History Tobacco Use Types [...] differential and platelet (07/24/2007 9:39 PM CDT) [facility] Method Time Signature MCV [id number] [...] (07/24/2007 9:39 PM CDT) [facility] Time Signature Levetiracetam 15.2 MISYS Level Comment: Unit: ug/ml (Note) EXPECTED STEADY STATE TROUGH CONCENTRATI ONS IN PATIENTS RECEIVING RECOMMENDED DAILY DOS AGES: 5 - 45 ug/ml. TOXIC RANGE HAS NOT BEEN ESTABLISHED. Analysis performed by [facility], [address] [place] [address] Specimen Anatomical Collection Method Collection Time Receive d Time (Source) Location / / Volume Laterality 07/24/2007 9:39 PM 7 CDT 11:46 PM CDT Markos Barton MD LAB - BLOOD ORDERABLES Performing Organization Address City/[facility] Phon e Number MISYS documented in this encounter Visit Diagnoses Not on filedocumented in this encounter
--- OUTSIDE RECORDS SUMMARY | 2022-06-18 10:24 | XMS_ITS | Encounter Summary ---
:1985 Author Organization [place] Address [address] [place] [address] Care Team Providers Name Role Phone Unavailable Primary Care Provider Unavailable Encounter Details Date Type Department Care Team Description 09/04/2017 Orders Only [facility], Ernestina Nonintrac table [employer] [facility] MD Adriana generalized idiopathic [address] [facility] OF epilepsy with status [place], [place] NEUROLOGY epilepticus (H) (Primary [address] [address]) [phone] [place] [address] Social History Tobacco Use Types Packs/Day Years Used Date Never Smoker Alcohol Use Standard Drinks/Week Comments Yes 0 (1 standard drink = 0.6 oz pure alcoho l) occ Sex Assigned at Date Recorded Not on file documented as of this encounter Plan of Treatment Not on filedocumented as of this encounter Results (ABNORMAL) Keppra (Levetiracetam) Level (09/05/2017 7:19 AM WATCH TRAIN ASSEMBLER) athologist Signature Keppra 2 (L) 12 - 46 09/06/2017 [facility] (Levetiracetam) ug/mL 3:44 AM [facility] Comment: (Note) INTERPRETIVE INFORMATION: Keppra (Leveti racetam) Therapeutic Range: ??12-46 ug/mL ? Toxic: ??Not well Establ ished Pharmacokinetics of levetiracetam are af fected by renal function. Adverse effects may include so mnolence, weakness, headache and vomiting. Performed by [employer], [address] [facility] [place] [address] [phone] [email or web address], Francisco Rubio MD, Lab. Director Specimen Anatomical Collection Method Collection Time Receive d Time (Source) Location / / Volume Laterality Blood specimen 09/05/2017 7:19 AM 017 7:20 (specimen) WATCH TRAIN ASSEMBLER AM WATCH TRAIN ASSEMBLER Ernestina Shah MD LAB - BLOOD ORDERABLES Performing Organization Address City/[facility]/ZIP Code Phon e Number M [facility] [address] [place], [place] 5533 [facility] [address] [place] [phone], [facility] [phone] Lamotrigine Level (09/05/2017 7:19 AM WATCH TRAIN ASSEMBLER) athologist Signature Lamotrigine 5.1 2.5 - 15.0 09/06/2017 CLANCY Level ug/mL 3:44 AM [facility] Comment: (Note) INTERPRETIVE INFORMATION: ??Lamotrigine Therapeutic Range: ??2.5-15.0 ug/mL ? Toxic: ??Not well establ ished Pharmacokinetics varies widely, particul leon with co-medications and/or compromised renal function. ??Adverse effects may include dizziness, somnolenc e, nausea and vomiting. Performed by [employer], [address] [facility] [address] [email or web address], Francisco Rubio MD, Lab. Director Specimen Anatomical Collection Method Collection Time Receive d Time (Source) Location / / Volume Laterality Blood specimen 09/05/2017 7:19 AM 017 7:20 (specimen) WATCH TRAIN ASSEMBLER AM WATCH TRAIN ASSEMBLER Ernestina Shah MD LAB - BLOOD ORDERABLES Performing Organization Address City/[facility]/ZIP Code Phon e Number M [facility] [address] [place], [place] 5533 [facility] [address] [phone], [facility] [phone] (ABNORMAL) Comprehensive metabolic panel (BMP + Alb, Alk Phos, ALT, AST, Total. Bili, TP) (09/05/2017 7:19 AM [facility]) athologist Signature Sodium 141 133 - 144 09/05/2017 [facility] mmol/L 7:44 AM [facility] Potassium 3.7 3.4 - 5.3 09/05/2017 [facility] mmol/L 7:44 AM [facility] Chloride 114 (H) 94 - 109 09/05/2017 [facility] mmol/L 7:44 AM [facility] Carbon Dioxide 20 20 - 32 09/05/2017 [facility] mmol/L 7:44 AM [facility] Anion Gap 7 3 - 14 09/05/2017 [facility] mmol/L 7:44 AM [facility] Glucose 93 70 - 99 09/05/2017 [facility] mg/dL 7:44 AM [facility] Urea Nitrogen 13 7 - 30 09/05/2017 [facility] mg/dL 7:44 AM [facility] Creatinine 0.98 0.52 - 09/05/2017 [facility] 1.04 mg/dL 7:44 AM [facility] GFR Estimate 66 >60 09/05/2017 [facility] mL/min/1.7 7:[address] Comment: Non GFR Calc GFR Estimate If 80 >60 mL/min/1.7m2 09/05/2017 7:44 A [facility] Comment: GFR Calc Calcium 8.9 8.5 - 10.1 mg/dL 09/05/2017 7:44 AM [facility] Bilirubin Total 0.6 0.2 - 1.3 mg/dL 09/05/2017 7:44 AM [facility] Albumin 4.0 3.4 - 5.0 g/dL 09/05/2017 7:44 AM [facility] Protein Total 7.4 6.8 - 8.8 g/dL 09/05/2017 7:44 AM [facility] Alkaline Phosphatase 65 40 - 150 U/L 09/05/2017 7:44 AM [facility] ALT 16 0 - 50 U/L 09/05/2017 7:44 AM [facility] Jen [facility] AST 13 0 - 45 U/L 09/05/2017 7:44 AM [facility] Jen [facility] Specimen Anatomical Collection Method Collection Time Receive d Time (Source) Location / / Volume Laterality Blood specimen 09/05/2017 7:19 AM 017 7:20 (specimen) WATCH TRAIN ASSEMBLER AM WATCH TRAIN ASSEMBLER Ernestina Shah MD LAB - BLOOD ORDERABLES Performing Organization Address City/State/ZIP Code Phon e Number M [place] [address] [address] [address] [phone] documented in this encounter Visit Diagnoses Diagnosis 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
--- OUTSIDE RECORDS SUMMARY | 2022-06-18 10:24 | XMS_ITS | Encounter Summary ---
:1985 Author Organization [place] Address [address] [place] [address]. [place] [address] Care Team Providers Name Role Phone [facility] Primary Care Provider [phone] Reason for Visit Reason Comments Consult TECHNOLOGY TRAINING ASSOCIATE (Emergency: 1-2 Days) - Pending Review Specialty Diagnoses / Procedures Referred By Contact Refer red To Contact professional tutor Diagnoses Abnormal ultrasound Shirley Pearson [facility] [address] [facility] [place] [address] [facility] [address] [place] [address],[facility] [address] [phone] Phone: Fax: Referral ID Status Reason Start Date Expiration Date Visits V isits Requested Authorized [id number] Pending 10/25/2021 10/25/2022 1 1 Review Encounter Details Date Type Department Care Team Description 10/26/2021 Virtual Visit [facility] Milly Pearson [facility] [address] [place] [address] Known anomaly, Clinic Gia Umanzor MD [address] [place], [place] [address] antepartum, single or [address] unspecified fetus [place], [place] (Primary Dx) [address] Social History Tobacco Use Types Packs/Day Years Used Date Never Smoker Alcohol Use Standard Drinks/Week Comments Yes 0 (1 standard drink = 0.6 oz pure alcoho l) occ Sex Assigned at Date Recorded Not on file COVID-19 Exposure Response Date Recorded In the last month, have you been in contact with No / Unsure 10/26/2021 1:52 PM DIRECTOR PRODUCT MANAGEMENT someone who was confirmed or suspected to [...] of her appointment to recommend level 2 [facility] ultrasound. They could fit her in today so she went to the ultrasound in lieu of clinic appointmentat [place]. I called her after her ultrasound with [facility] She and her are interested in induction [...] MD. Plan for induction of labor at [place] on 10/28 at 9am. Will get COVID [...] and is interested in talking with a neonatal social worker tomorrow to help make arrangements ahead of time. She has questions about insurance coverage. I will have the hospital neonatal social worker reach out to her. I also gave her my supplier diversity director's phone number who may be able to help with coding questions. Phone call duration: 29min Gia Martínez MD [employer] PRODUCT MANAGEMENT documented in this encounter Plan of Treatment Scheduled Referrals Name Type Priority Associated Diagnoses Order S chedule Abrasive Water Jet Cutter Operator Referral Referral Emergency: 1-2 Days Abnormal Ord ered: 10/25/2021 ultrasound documented as of this encounter Visit Diagnoses Diagnosis Known anomaly, antepartum, single or unspecified fetus - Primary documented in this encounter Care Teams Veterinary Poultry Inspector Relationship Specialty Start Date End Date [facility] PCP - General 09/05/17 [address] [address] [place], [place] [phone] documented as of this encounter
--- OUTSIDE RECORDS SUMMARY | 2022-06-18 10:24 | XMS_ITS | Encounter Summary ---
:1985 Author Organization [place] Address [address] [place] [address] Care Team Providers Name Role Phone Unavailable Primary Care Provider Unavailable Reason for Visit Reason Comments Eye Problem Dizziness Encounter Details Date Type Department Care Team Description 06/16/2013 [facility] Emergency Dep t MD Minro Headache [address] [facility] EMERGENCY PHYSICIANS [facility] [id number] [address] [employer] [phone] [address] [place], [place] [address] (Wo rk) Social History Tobacco Use Types [...] Anderson in 3-5 days if not improving. Jasper should call you if seizure medication levels [...] as directed by your healthcare provider ?? [phone], [place] [address]. All rights reserved. This information is not [...] her Keppra, so she was seen at [facility] where they edinson her Keppra and told [...] History: Seizures Genital herpes Past Surgical History: [place] teeth removed Tonsillectomy Family/Social History: The patient [...] work. The patient was placed on continuous rn cardiac and pulse oximetry. IV was inserted and [...] for discharge to home. We will contact [facility] concerning her seizure drug levels. I have a low suspicion for cardiac etiology or significant cranial etiology. Patient and mother are comfortable with this plan. Pt improved with interventions in ER, labs unremarkable including carbon monoxide, ecg with no ischemia or malignant arrhythmia. [facility] stated labs still pending. Pt updated on findings and comfortable going home. Diagnosis: 1. Generalized weakness 2. Headache ITommie am serving as a scribe on 06/16/2013 at 7:52 AM to personally document services performed by Dr. Dnucan based on my observations and the provider's [...] Carbon Monoxide 1.2 0 - 2 % [facility] Specimen Anatomical Collection Method Collection Time Receive d Time (Source) Location / / Volume Laterality Blood specimen 06/16/2013 8:55 AM 013 8:56 (specimen) CDT AM CDT Monroe Duncan MD LAB - BLOOD ORDERABLES Performing Organization Address City/State/ZIP Code Phon e Number [place] [address] [place], [place] [phone] [place] [address] LAB HCG qualitative urine (06/16/2013 8:34 AM CDT) P athologist Signature HCG Qual Urine Negative NEG [facility] Specimen Anatomical Collection Method Collection Time Receive d Time (Source) Location / / Volume Laterality Urine specimen 06/16/2013 8:34 AM 013 8:38 (specimen) CDT AM CDT Monroe Duncan MD LAB - URINE ORDERABLES Performing Organization Address City/[facility] Phon e Number [place] [address] [place], [place] [address] [phone] [place] [address] LAB (ABNORMAL) UA with Microscopic (06/16/2013 8:34 AM CDT) Patholo gist Method Time Signature Color Urine Yellow [facility] Appearance Urine Slightly [place] Cloudy [facility] Glucose Urine Negative NEG mg/dL [facility] Bilirubin Urine Negative NEG [facility] Ketones Urine Negative NEG mg/dL [facility] Specific [place] 1.019 1.003 - [place] Urine 1.035 [facility] Blood Urine Small (A) NEG [facility] pH Urine 6.0 5.0 - 7.0 [place] pH [facility] Protein Albumin 10 (A) NEG mg/dL [facility] LAB Urobilinogen Normal 0.0 - 2.0 [place] mg/dL mg/dL [facility] Nitrite Urine Negative NEG [facility] Leukocyte Small (A) NEG [place] Esterase Urine [facility] Source Midstream [place] Urine [facility] WBC Urine 2 0 - 2 [facility] RBC Urine 1 0 - 2 [facility] Squamous 8 (H) 0 - 1 [place] Epithelial /HPF /HPF [facility] LAB Transitional Epi <1 0 - 1 [facility] Mucous Urine Present (A) NEG /LPF [facility] Specimen Anatomical Collection Method Collection Time Receive d Time (Source) Location / / Volume Laterality Urine specimen 06/16/2013 8:34 AM 013 8:38 (specimen) CDT AM CDT Monroe Duncan MD LAB - URINE ORDERABLES Performing Organization Address City/[facility] Code Phon demetria Jeffery [facility] [address] [place], [place] [address] [facility] LAB (ABNORMAL) Basic metabolic panel (BMP) (06/16/2013 8:12 AM CDT) Analysis Performed At Patho logist Time Signature Sodium 145 (H) 133 - 144 [place] mmol/L [facility] LAB Potassium 3.7 3.4 - 5.3 [place] mmol/L [facility] Chloride 110 (H) 94 - 109 [place] mmol/L [facility] Carbon Dioxide 21 20 - 32 [place] mmol/L [facility] Anion Gap 14 6 - 17 [place] mmol/L [facility] Glucose 85 60 - 99 [place] mg/dL [facility] Urea Nitrogen 12 5 - 24 [place] mg/dL [facility] Creatinine 1.10 (H) 0.52 - [facility] 1.[facility] mg/dL [facility] GFR Estimate 61 >60 [place] mL/min/1.[address] LAB GFR Estimate If 73 >60 [place] mL/min/1.[address] [place] [address] LAB Calcium 9.1 8.5 - 10.4 [place] mg/dL [facility] LAB Specimen Anatomical Collection Method Collection Time Receive d Time (Source) Location / / Volume Laterality Blood specimen 06/16/2013 8:12 AM 013 8:15 (specimen) CDT AM CDT Monroe Duncan MD LAB - BLOOD ORDERABLES Performing Organization Address [facility]/ZIP [facility] Phon e Jose D [facility] [address] [place], [place] [address] [facility] CBC (platelets, no diff) (06/16/2013 8:12 AM CDT) P athologist Signature WBC 5.2 4.0 - 11.0 [place] 10e9/L [facility] RBC Count 4.27 3.8 - 5.2 [place] 10e12/L [facility] LAB Hemoglobin 12.7 11.7 - [place] 15.7 g/dL [facility] LAB Hematocrit 39.6 35.0 - [place] 47.0 % [facility] MCV 93 78 - 100 [place] fl [facility] LAB MCH 29.7 26.5 - [place] 33.0 pg [facility] LAB MCHC 32.1 31.5 - [place] 36.5 g/dL [facility] LAB RDW 13.7 10.0 - [place] 15.0 % [facility] Platelet Count 272 150 - [address] LAB Specimen Anatomical Collection Method Collection Time Receive d Time (Source) Location / / Volume Laterality Blood specimen 06/16/2013 8:12 AM 013 8:15 (specimen) CDT AM CDT Monroe Duncan MD LAB - BLOOD ORDERABLES Performing Organization Address City/State/ZIP Code Phon e Number [place] [address] [facility] EKG 12 lead (06/16/2013 8:10 AM [...] 30 mg (COMPLETED) 848 (Given - Provider: Bobbi Otero RN) 30 mg, Intravenous, ONCE, Sat06/16/13 [...]
--- OUTSIDE RECORDS SUMMARY | 2022-06-18 10:24 | XMS_ITS | Encounter Summary ---
:1985 Author Organization [place] Address [address] [place] [address]. [place] [address] Care Team Providers Name Role Phone [facility] Primary Care Provider [phone] Ernestina Shah MD Unavailable Reason for Referral - Closed Specialty Diagnoses / Procedures Referred By Contact Refer red To Contact Diagnoses Seizure disorder in , antepartum, first trimester (H) Polypharmacy Ur Maternal Med [address] [place], [place] [address] Referral ID Status Reason Start Date Expiration Date Visits Requ ested Visits Authorized [id number] Closed 07/30/2018 07/30/2019 1 1 Encounter Details Date Type Department Care Team Description 07/30/[address] [facility], Seizure disorder in , antepartum, first trimester (H) (Primary Dx); Maternal Gia Hope RN [facility] [address] [address] Social History Tobacco Use Types Packs/Day Years [...] prescriptions documented in this encounter Care Teams Drafter Detail Relationship Specialty Start Date End Date [facility] PCP - General 09/05/17 [address] [place] [address] Ernestina Shah MD MD Neurology 09/05/17 10/28/18 [facility] NEUROLOGY [facility] [address] [address] documented as of this encounter
--- OUTSIDE RECORDS SUMMARY | 2022-06-18 10:24 | XMS_ITS | Encounter Summary ---
:1985 Author Organization [place] Address [address] [place] [address]. [place] [address] Care Team Providers Name Role Phone [facility] Primary Care Provider [phone] Reason for Referral Consultation (Routine: Next available opening) - Pending Review Specialty Diagnoses / Procedures Referred By Contact Refer red To Contact Diagnoses related condition, antepartum Shirley Pearson [facility] [address] [place] [address] Referral ID Status Reason Start Date Expiration Date Visits V isits Requested Authorized [id number] Pending 10/24/2021 10/24/2022 1 1 Review NGER ASSEMBLER Encounter Details Date Type Department Care Team Description 10/24/2021 Transcribe Orders [facility] Alexy Barajas, James misty related Maternal Shirley Becerra condition, Medicine [facility] antepartum (Primary [facility] Dx) [address] [facility] [address] [place] [address] [phone] Social History Tobacco Use Types Packs/Day Years [...] Primary documented in this encounter Care Teams Box Lining Machine Operator Relationship Specialty Start Date End Date [facility] PCP - General 09/05/17 [address] [address] [place], [place] [phone] documented as of this encounter
--- OUTSIDE RECORDS SUMMARY | 2022-06-18 10:24 | XMS_ITS | Encounter Summary ---
:1985 Author Organization [place] Address [address] [place] [address]. [place] [address] Care Team Providers Name Role Phone Unavailable Primary Care Provider Unavailable Encounter Details Date Type Department Care Team Description 11/10/2007 Emergency room Antonio Kirkpatrick [address] [place] [address] Social History Tobacco Use Types Packs/Day Years Used Date Never Assessed Sex Assigned at Date Recorded Not on file documented as of this encounter Progress Notes Interface, Electronic Lab Technician - 11/11/2007 3:54 PM MAP MAKER FINAL CHIEF COMPLAINT: I had a seizure. HISTORY OF PRESENT ILLNESS: A 22-year-old female with history of seizure disorder presents with [facility] for evaluation of seizure. The patient [...] MARIO#[id number] Name: TRINITY AYALA MRN: [id number] Account: [id number] : 1985 Visit Date: 11/10/2007 Document: [id number] cc: Eli INMAN MAKER documented in this encounter Plan of Treatment Not on filedocumented as of this encounter Visit Diagnoses Not on filedocumented in this encounter
--- OUTSIDE RECORDS SUMMARY | 2022-06-18 10:24 | XMS_ITS | Encounter Summary ---
:1985 Author Organization [place] Address [address] [place] [address] Care Team Providers Name Role Phone Unavailable Primary Care Provider Unavailable Encounter Details Date Type Department Care Team Description 07/24/2007 Emergency room Melisa Barton MD EMERGENCY PHYSIC VIGNESH INMAN [address] [facility] [address] [place], [place] [address] (Wo rk) Social History Tobacco Use Types [...] by MELISA BARTON MD MT: MARIO#[id number] Name: TRIINTY AYALA MRN: [id number] Account: [id number] : 1985 Visit Date: 07/24/2007 Document: [id number] documented in this encounter Plan of Treatment Not on filedocumented as of this encounter Visit Diagnoses Not on filedocumented in this encounter
--- OUTSIDE RECORDS SUMMARY | 2022-06-18 10:24 | XMS_ITS | Encounter Summary ---
:1985 Author Organization [place] Address [address] [address]. [place] [address] Care Team Providers Name Role Phone [facility] Primary Care Provider [phone] Encounter Details Date Type Department Care Team Description 10/24/2021 Medical Correspondence [facility] Scan, OBGYN REFERRAL Health Info [facility] Non-Provider [facility] [address] [place] [phone] Social History Tobacco Use Types Packs/Day Years Used Date Never Smoker Alcohol Use Standard Drinks/Week Comments Yes 0 (1 standard drink = 0.6 oz pure alcoho l) occ Sex Assigned at Date Recorded Not on file documented as of this encounter Plan of Treatment Not on filedocumented as of this encounter Visit Diagnoses Not on filedocumented in this encounter Care Teams Measurement Analyst Relationship Specialty Start Date End Date [facility] PCP - General 09/05/17 [address] [place] [address] documented as of this encounter
--- OUTSIDE RECORDS SUMMARY | 2022-06-18 10:24 | XMS_ITS | Encounter Summary ---
:1985 Author Organization [place] Address [address] [place] [address]. [place] [address] Care Team Providers Name Role Phone [facility] Primary Care Provider [phone] Reason for Visit Auth/Cert - Closed Specialty Diagnoses / Procedures Referred By Contact Refer red To Contact Surgery Diagnoses Chronic Tonsilitis Rh Periop Services Procedures TONSILLECTOMY [address] [place], [place] [address] Fax: Referral ID Status Reason Start Date Expiration Date Visits Requ ested Visits Authorized [id number] Closed 1 1 Encounter Details Date Type Department Care Team Description 02/18/2013 Surgery [facility] Jacinta Loya MD Tonsillectomy PeriOp Services [facility] [address] [facility] S [address] [place] [address] [place], [place] [phone] (Wo rk) Surgery Details Date/Time Status Location [...] ML AT 2:10 PM TONSILLECTOMY DISCHARGE INSTRUCTIONS [facility], PCarla Guzman M.D. Phill Kahn M.D. [...] It is best to stay in the [facility] area for the two week healing [...] have any problems or questions, please call [phone], 24 hours a day. GENERAL ANESTHESIA OR [...] Component Value Ref Test Analysis Performed At [facility] Kyp Range Method Time Signature Copath Report Patient Name: TRINITY AYALA MR#: [id number] Specimen #: [id number] Collected: 02/18/2013 Received: 02/18/2013 Reported: 02/19/2013 16:17 [...] serial sections, no gross lesions are identified. ??Glove Printer section is submitted in one cassette. B. ??The specimen, labeled left tonsil, consists of formal in-fixed morin to pink to hemorrhagic soft palatine tonsil measuring 2.5 cm x 1.5 cm x 1 cm. ??On serial sections, no gross lesions are identified. Glove Printer section is submitted in one cassette. ??MGP/s g MICROSCOPIC: A. and B. ??Microscopic examination is performed. SA/andreea DT/02-19-13 TESTING LAB LOCATION: [address] ??[id number] COLLECTION SITE: Client: [facility] Location: RHOR (R) Specimen Anatomical Collection Method Collection Time Receive d Time (Source) Location / / Volume Laterality 02/18/2013 1:15 PM 3 1:45 CDT PM CDT Tomasz Loya MD LAB - BEAKER AP Performing Organization Address City/State/ZIP Code Phon e Number [place] HCG qualitative urine (02/18/2013 10:10 AM CDT) P athologist Signature HCG Qual Urine Negative NEG [facility] LAB Specimen Anatomical Collection Method Collection Time Receive d Time (Source) Location / / Volume Laterality Urine specimen URINE SPECIMEN / 02/18/2013 10:10 02/18 (specimen) Unknown AM CDT 10:23 AM CDT Allan Garrett MD LAB - URINE ORDERABLES Performing Organization Address City/State/ZIP Code Phon e Number [place] [address] [address] [place], [place] [address] [facility] documented in this encounter [...] Intra-procedure documented in this encounter Care Teams Glue Drier Operator Relationship Specialty Start Date End Date [facility] PCP - General 02/04/13 06/15/13 documented as of this encounter
--- OUTSIDE RECORDS SUMMARY | 2022-06-18 10:24 | XMS_ITS | Encounter Summary ---
:1985 Author Organization [address] [place] [address] Care Team Providers Name Role Phone [facility] Primary Care Provider [phone] Ernestina Shah MD Unavailable Encounter Details Date Type Department Care Team Description 07/23/2018 Medical Correspondence [facility], [facility] PROVIDER Health Info Mgmt Non-Provider SERVICE REQ UEST [address] [address] Social History Tobacco Use Types Packs/Day Years Used Date Never Smoker Alcohol Use Standard Drinks/Week Comments Yes 0 (1 standard drink = 0.6 oz pure alcoho l) occ Sex Assigned at Date Recorded Not on file documented as of this encounter Plan of Treatment Not on filedocumented as of this encounter Visit Diagnoses Not on filedocumented in this encounter Care Teams Helmet Binder Relationship Specialty Start Date End Date [facility] PCP - General 09/05/17 [address] [place], [place] [phone] Ernestina Shah MD MD Neurology 09/05/17 10/28/18 [facility] [address] [facility] A[address] [place] [address] documented as of this encounter
--- OUTSIDE RECORDS SUMMARY | 2022-06-18 10:24 | XMS_ITS | Encounter Summary ---
:1985 Author Organization [place] Address [address] [place] [address]. [place] [address] Care Team Providers Name Role Phone [facility] Primary Care Provider [phone] Ernestina Shah MD Unavailable Gia Martínez MD Unavailable [phone] Reason for Referral - Closed Specialty Diagnoses / Procedures Referred By Contact Refer red To Contact Diagnoses related condition Alberta Beckford, A[facility] [address] [place] [address] Fax: Referral ID Status Reason Start Date Expiration Date Visits Requ ested Visits Authorized [id number] Closed 07/24/2018 07/24/2019 1 1 Encounter Details Date Type Department Care Team Description 07/24/2018 [facility] Only [facility] Alberta Beckford, Pregna ncy related Maternal STRATEGIC ACCOUNT MANAGER condition (Primary Dx) Medicine Center Formerly [facility], [facility] [address] [facility] [address] [place] [phone] Social History Tobacco Use Types Packs/Day Years [...] care documented in this encounter Care Teams Mixed Livestock Farmer Relationship Specialty Start Date End Date [facility] PCP - General 09/05/17 [address] [place], [place] [phone] Ernestina Shah MD MD Neurology 09/05/17 10/28/18 [facility] NEUROLOGY [address] [facility] A[address] [place] [address] Gia Martínez MD Assigned OBGYN Provider 10/29/[address] [place], [place] [phone] documented as of this encounter
--- OUTSIDE RECORDS SUMMARY | 2022-06-18 10:24 | XMS_ITS | Encounter Summary ---
:1985 Author Organization [place] Address [address] [place] [address] Care Team Providers Name Role Phone Unavailable Primary Care Provider Unavailable Encounter Details Date Type Department Care Team Description 07/24/2007 Results Only [facility] Markos Barton, Hospital Results MD [facility] [facility] [address] [facility] [address] [place], [place] [address] (Wo rk) Social History Tobacco Use Types Packs/Day Years Used Date Never Assessed Sex Assigned at Date Recorded Not on file documented as of this encounter Plan of Treatment Not on filedocumented as of this encounter Procedures Procedure Name Priority Date/Time Associated Diagnosis Comme [facility] US ABDOMEN Routine 07/24/2007 10:49 PM Results [...]
--- OUTSIDE RECORDS SUMMARY | 2022-06-18 10:24 | XMS_ITS | Encounter Summary ---
:1985 Author Organization [place] Address [address] [place] [address]. 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 Toxic: ??Not well Establ ished Pharmacokinetics of levetiracetam are af fected by renal function. Adverse effects may include so mnolence, weakness, headache and vomiting. Performed by [facility], [address] [place] [address],[place] [address] www.[email or web address] DELOR, Francisco Rubio MD, Lab. Director Specimen Anatomical Collection Method Collection Time Receive d Time (Source) Location / / Volume Laterality Blood specimen 01/16/2018 7:25 AM 018 7:31 (specimen) CDT AM CDT Eli Barnhart MD LAB - BLOOD ORDERABLES Performing Organization Address City/[facility] Code Phon e Number M [facility] [address] [place], [place] [address] [facility] [address] [place], [place] [address], [facility] [phone] Lamotrigine Level (01/16/2018 7:25 AM CDT) athologist Signature Lamotrigine 4.8 2.5 - 15.0 01/17/2018 [place] Level ug/mL 1:17 AM CDT [facility] Comment: (Note) INTERPRETIVE INFORMATION: ??Lamotrigine Therapeutic Range: ??2.5-15.0 ug/mL ? Toxic: ??Not well establ ished Pharmacokinetics varies widely, particul leon with co-medications and/or compromised renal function. ??Adverse effects may include dizziness, somnolenc e, nausea and vomiting. Performed by [facility], [address] [place] [address] www.[facility], Francisco Rubio MD, Lab. Director Specimen Anatomical Collection Method Collection Time Receive d Time (Source) Location / / Volume Laterality Blood specimen 01/16/2018 7:25 AM 018 7:31 (specimen) CDT AM CDT Eli Barnhart MD LAB - BLOOD ORDERABLES Performing Organization Address City/State/ZIP Code Phon e Number M [facility] [address] [place], [place] 55[address] [facility] [address] [place], [place] [address], [facility] [phone] documented in this encounter Visit Diagnoses Diagnosis Nonintractable generalized idiopathic ep ilepsy with status epilepticus (H) - Primary Post-traumatic headache Post-traumatic headache, unspecified Injury, head, sequela Benign essential tremor Essential and other specified forms of t remor documented in this encounter Care Teams Sane Rn Relationship Specialty Start Date End Date [place] PCP - General 09/05/17 [address] [place] [address] Ernestina Shah MD MD Neurology 09/05/17 10/28/18 [facility] NEUROLOGY [address] [phone] documented as of this encounter
--- OUTSIDE RECORDS SUMMARY | 2022-06-18 10:24 | XMS_ITS | Encounter Summary ---
:1985 Author Organization [place] Address [address] [place] [address]. [place] [address] Care Team Providers Name Role Phone [place], [facility] Primary Care Provider [phone] Reason for Referral DIRECTOR EXTERNAL COMMUNICATIONS (Emergency: 1-2 Days) - Pending Review Specialty Diagnoses / Procedures Referred By Contact Refer red To Contact stone polisher hand Diagnoses Abnormal ultrasound Shirley Pearson [facility] Whs In Women [facility] [address] [facility] [place] [address] [facility] Flr,Devan [address] [place] [address] Phone: Fax: Referral ID Status Reason Start Date Expiration Date Visits V isits Requested Authorized [id number] Pending 10/25/2021 10/25/2022 1 1 Review VISION SPECIALIST Encounter Details Date Type Department Care Team [...] Type Priority Associated Diagnoses Order S chedule Water Resource Engineering Specialist Referral Referral Emergency: 1-2 Days Abnormal Ord ered: 10/25/2021 ultrasound documented as of this encounter Visit Diagnoses Diagnosis Abnormal ultrasound - Primary Abnormal findings on screening documented in this encounter Care Teams Medical Registrar Relationship Specialty Start Date End Date [place], [facility] PCP - General 09/05/17 [address] [place] [address] documented as of this encounter
--- OUTSIDE RECORDS SUMMARY | 2022-06-18 10:24 | XMS_ITS | Encounter Summary ---
:1985 Author Organization [place] Address [address] [place] [address]. [place] [address] Care Team Providers Name Role Phone [facility] Primary Care Provider [phone] Reason for Visit Reason Comments Ultrasound L2 - abnormal US on outside clinic Encounter Details Date Type Department Care Team Description 10/26/2021 PRE VISIT [facility] Ariadna Cavazos, Ultraso und (L2 - Maternal Medicine RN abno rmal US on outside Center [facility]) [address] [place], [place] [address] Social History Tobacco Use Types Packs/Day Years Used Date Never Smoker Alcohol Use Standard Drinks/Week Comments Yes 0 (1 standard drink = 0.6 oz pure alcoho l) occ Sex Assigned at Date Recorded Not on file documented as of this encounter Plan of Treatment Not on filedocumented as of this encounter Visit Diagnoses Not on filedocumented in this encounter Care Teams Cage Maker Machine Relationship Specialty Start Date End Date [facility] PCP - General 09/05/17 [address] [place], [place] [phone] documented as of this encounter
--- OUTSIDE RECORDS SUMMARY | 2022-06-18 10:24 | XMS_ITS | Encounter Summary ---
:1985 Author Organization [place] Address [address] [place] [address] Care Team Providers Name Role Phone Unavailable Primary Care Provider Unavailable Encounter Details Date Type Department Care Team Description 10/13/2007 Historic Results INTERFACED REPORT Tobi Kirkpatrick [address] [place] [address] Social History Tobacco Use Types Packs/Day Years Used Date Never Assessed Sex Assigned at Date Recorded Not on file documented as of this encounter Plan of Treatment Not on filedocumented as of this encounter Procedures Procedure Name Priority Date/Time Associated Comments Diagnosis HCG QUALITATIVE URINE STAT 10/13/2007 1:34 AM Results for this ASSURANCE OFFICER procedure are i n the results section. ROUTINE UA WITH Routine 10/13/2007 1:34 AM Result s for this MICROSCOPIC ASSURANCE OFFICER procedure are i n the results section. documented in this encounter Results HCG qualitative urine (10/13/2007 1:34 AM ASSURANCE OFFICER) athologist Signature HCG Qual Urine Negative NEG [facility] Specimen Anatomical Collection Method Collection Time Receive d Time (Source) Location / / Volume Laterality 10/13/2007 1:34 AM 8 ASSURANCE OFFICER 12:50 AM ASSURANCE OFFICER Antonio Kirkpatrick LAB - URINE ORDERABLES Performing Organization Address City/State/ZIP Code Phon e Number [place] (ABNORMAL) Routine UA with microscopic (10/13/2007 1:34 AM ASSURANCE OFFICER) Component Value Ref Test Analysis Performed At [facility] gist Range Method Time Signature Source Unspecified [place] Urine Color Urine Yellow [place] Appearance Urine Slightly Cloudy [facility] Glucose Urine Negative NEG [place] mg/dL Bilirubin Urine Negative NEG [place] Ketones Urine Negative NEG [place] mg/dL Specific [place] 1.035 1.003 - [facility] Urine 1.035 Blood [...] Volume Laterality 10/13/2007 1:34 AM 8 3:36 ASSURANCE OFFICER AM ASSURANCE OFFICER Antonio Kirkpatrick LAB - URINE ORDERABLES Performing Organization Address City/State/ZIP Code Phon e Number [place] documented in this encounter Visit Diagnoses Not on filedocumented in this encounter
--- OUTSIDE RECORDS SUMMARY | 2022-06-18 10:24 | XMS_ITS | Encounter Summary ---
:1985 Author Organization [place] Address [address] [place] [address] Care Team Providers Name Role Phone [facility] Primary Care Provider [phone] Reason for Referral Diagnostic Imaging Ultrasound (Routine) - Pending Review Specialty Diagnoses / Procedures Referred By Contact Refer red To Contact Diagnoses related condition, antepartum Peterson Pearson Procedures [facility] [address] [place] [address] Referral ID Status Reason Start Date Expiration Date Visits V isits Requested Authorized [id number] Pending 10/24/2021 10/24/2022 1 1 Review RESS STUFFER Consultation (Routine: Next available opening) - Pending Review Specialty Diagnoses / Procedures Referred By Contact Refer red To Contact Diagnoses related condition, antepartum Peterson Pearson [facility] [address] [place] [address] Referral ID Status Reason Start Date Expiration Date Visits V isits Requested Authorized [id number] Pending 10/24/2021 10/24/2022 1 1 Review RESS STUFFER Encounter Details Date Type Department Care Team Description 10/24/2021 Transcribe Orders [facility] Alexy Barajas, Pregn misty related Maternal Peterson Becerra [facility], Medicine [facility] antepartum (Primary [facility] Dx) [address] [facility] [address] [place] [address] Social History Tobacco Use Types Packs/Day Years Used Date Never Smoker Alcohol Use Standard Drinks/Week Comments Yes 0 (1 standard drink = 0.6 oz pure alcoho l) occ Sex Assigned at Date Recorded Not on file documented as of this encounter Plan of Treatment Scheduled Referrals Name Type Priority Associated Diagnoses Order S [facility] Referral Routine: Next related Expe cted: Referral - available opening condition, 10/24/2021 antepartum (Approximate), Expires: 04/22/2022 documented as of this encounter Results [facility] US Comprehensive Single (10/26/2021 3:29 PM MATTRESS STUFFER) Anatomical Region Laterality Modality Ultrasound Specimen (Source) Anatomical Collection Method Collection Time Re ceived Time Location / / Volume Laterality 10/26/2021 1:55 PM MATTRESS STUFFER Impressions 10/26/2021 5:17 PM MATTRESS STUFFER IMPRESSION 1) Eduardo intrauterine at 2 1w [...] of growth restriction. Narrative 10/26/2021 5:17 PM MATTRESS STUFFER Comprehensive Pat. Name: TRINITY AYALA Study Chet e: 10/26/2021 1:55pm Pat. NO: [id number] Referring ??: SETH FRAGOSO Site: [facility] Flower Stripper: Marya Moy RDMS : 1985 Age: 36 [...] lb 11 ? oz EFW by ?Hadlock ([id number]) Head / Face / Neck Biometry: Health Safety Coordinator ? 4.8 ? mm CM ?5.4 ? [...] Heart / Thorax ?Situs. Ductal arch view. 1-ondpbz-hpitkmp view. Cardiac position. Cardiac size. Cardiac rhythm. [...] scheduled of induction of la bor through [facility]. Trinity would like to proceed with delivery [...] Name:SAI AYALARahul Date: 10/26/2021 1:55pm Pat. NO: [id number] MD:PETERSON Houser [facility]Marya Moy RD MS :1985Age:36 INDICATION Multiple [...] 0 lb 11 oz EFW by Hadlock ([id number]) Head / Face / Neck Biometry: Health Safety Coordinator 4.8 mm CM 5.4 mm Nasal bone [...] Heart / Thorax Situs. Ductal arch view. 5-drxwzp-jenzuwr view. Cardiac position. Cardiac size. Cardiac rhythm. [...] scheduled of induction of la bor through [facility]. Trinity would like to proceed with delivery [...] the finding of growth restriction. Peterson Barajas [facility] US ORDERABLES documented in this encounter Visit Diagnoses Diagnosis related condition, antepartum - Primary related condition, antepartum documented in this encounter Care Teams Warehouse Assembly Worker Relationship Specialty Start Date End Date [facility] PCP - General 09/05/17 [address] [place] [address] documented as of this encounter
--- OUTSIDE RECORDS SUMMARY | 2022-06-18 10:24 | XMS_ITS | Encounter Summary ---
:1985 Author Organization [place] Address [address] [place] [address] Care Team Providers Name Role Phone [facility] Primary Care Provider [phone] Reason for Referral Diagnostic Imaging Ultrasound (Routine) - Pending Review Specialty Diagnoses / Procedures Referred By Contact Refer red To Contact Diagnoses related condition, antepartum Peterson Pearson Procedures [facility] [address] [place] [address] Referral ID Status Reason Start Date Expiration Date Visits V isits Requested Authorized [id number] Pending 10/24/2021 10/24/2022 1 1 Review ER UP Reason for Visit Diagnostic Imaging Ultrasound (Routine) - Pending Review Specialty Diagnoses / Procedures Referred By Contact Refer red To Contact Diagnoses related condition, antepartum Peterson Pearson Procedures [facility] [address] [place] [address] Referral ID Status Reason Start Date Expiration Date Visits V isits Requested Authorized [id number] Pending 10/24/2021 10/24/2022 1 1 Review Encounter Details Date Type Department Care Team Description 10/26/2021 Hospital Encounter [facility] Abbi Pearson [place] related Maternal Peterson Becerra condition, [facility] antepartum [facility] [address] [place] [address] [phone] Social History Tobacco Use Types Packs/Day Years Used Date Never Smoker Alcohol Use Standard Drinks/Week Comments Yes 0 (1 standard drink = 0.6 oz pure alcoho l) occ Sex Assigned at Date Recorded Not on file COVID-19 Exposure Response Date Recorded In the last month, have you been in contact with No / Unsure 10/26/2021 1:52 PM FITTER UP someone who was confirmed or suspected to [...] Procedure Name Priority Date/Time Associated Comments Diagnosis [facility] US COMPREHENSIVE Routine 10/26/2021 3:29 PM rela estelita Results for this SINGLE FITTER UP condition, procedure are i n antepartum the results section. documented in this encounter Results [facility] US Comprehensive Single (10/26/2021 3:29 PM FITTER UP) Anatomical Region Laterality Modality Ultrasound Specimen (Source) Anatomical Collection Method Collection Time Re ceived Time Location / / Volume Laterality 10/26/2021 1:55 PM FITTER UP Impressions 10/26/2021 5:17 PM FITTER UP IMPRESSION 1) Eduardo intrauterine at 2 1w [...] of growth restriction. Narrative 10/26/2021 5:17 PM FITTER UP Comprehensive Pat. Name: JAMIE TRINITYNIXON Dimas Chet e: 10/26/2021 1:55pm Pat. NO: [id number] Referring ??: SETH FRAGOSO Site: [facility] Quenching Machine Operator: Marya Moy RDMS : 1985 Age: 36 [...] lb 11 ? oz EFW by ?Hadlock ([id number]) Head / Face / Neck Biometry: Activities Aide ? 4.8 ? mm CM ?5.4 ? [...] Heart / Thorax ?Situs. Ductal arch view. 0-ctlrsg-ikejskp view. Cardiac position. Cardiac size. Cardiac rhythm. [...] scheduled of induction of la bor through [facility]. Trinity would like to proceed with [...] different from the original. Comprehensive Pat. Name:Zena AYALAshanthidavid Date: 10/26/2021 1:55pm Pat. NO: [id number] MD:PETERSON MEDINA [facility]:Marya Moy RD MS :1985Age:36 INDICATION Multiple anomalies [...] 0 lb 11 oz EFW by Hadlock ([id number]) Head / Face / Neck Biometry: Activities Aide 4.8 mm CM 5.4 mm Nasal bone [...] Heart / Thorax Situs. Ductal arch view. 4-jknicd-pgdoazw view. Cardiac position. Cardiac size. Cardiac rhythm. [...] RECOMMENDATION We discussed the findings on today's [facility] [place] rasound with the patient. Trinity was referred to our office for an comprehensive ultrasound to confirm the findings on previous outside ultrasound. The couple were previously counseled regarding the multiple anomalies a nd have decided to proceed with termination of . She is scheduled to see Dr. Martínez later today to further discuss the process and scheduled of induction of la bor through [facility]. Trinity would like to proceed with [...] finding of growth restriction. Peterson Medina Addi [facility] US ORDERABLES documented in this encounter Visit Diagnoses Diagnosis related condition, antepartum documented in this encounter Care Teams Tin Stacker Relationship Specialty Start Date End Date [facility] PCP - General 09/05/17 [address] [place], [place] [phone] documented as of this encounter
--- OUTSIDE RECORDS SUMMARY | 2022-06-18 10:24 | XMS_ITS | Encounter Summary ---
:1985 Author Organization [place] Address [address] [place] [address] Care Team Providers Name Role Phone Unavailable Primary Care Provider Unavailable Encounter Details Date Type Department Care Team Description 10/12/2007 Emergency room Melisa Barton MD EMERGENCY PHYSIC VIGNESH INMAN [address] [facility] [address] [place], [place] [address] (Wo rk) Social History Tobacco Use Types Packs/Day Years Used Date Never Assessed Sex Assigned at Date Recorded Not on file documented as of this encounter Progress Notes Melisa Barton MD - 11/13/2007 2:00 PM IT TECHNICAL SPECIALIST FINAL CHIEF COMPLAINT: I got my period [...] 85, respirations 32, temperature 99 and oxygen [id number]% on room air. GENERAL: This is a [...] MD MT: [id number] Name: TRINITY AYALA Account: [id number] : 1985 Visit Date: 10/12/2007 Document: [id number] TECHNICAL SPECIALIST documented in this encounter Plan of Treatment Not on filedocumented as of this encounter Visit Diagnoses Not on filedocumented in this encounter
--- OUTSIDE RECORDS SUMMARY | 2022-06-18 10:24 | XMS_ITS | Encounter Summary ---
:1985 Author Organization [place] Address [address] [place] [address]. [place] [address] Care Team Providers Name Role Phone [facility] Primary Care Provider [phone] Encounter Details Date Type Department Care Team Description 10/23/2021 Medical Correspondence [facility] Scan, MATERNAL Health Info Mgmt Non-Provider MEDICINE CE NTER [facility] Srvcs PROVIDER SERVICE [address] [place] [address] [place] [address] [facility] [phone] AND CLINICS Social History Tobacco Use Types Packs/Day Years Used Date Never Smoker Alcohol Use Standard Drinks/Week Comments Yes 0 (1 standard drink = 0.6 oz pure alcoho l) occ Sex Assigned at Date Recorded Not on file documented as of this encounter Plan of Treatment Not on filedocumented as of this encounter Visit Diagnoses Not on filedocumented in this encounter Care Teams Quick Technician Relationship Specialty Start Date End Date [facility] Medical PCP - General 09/05/17 [address] [place] [address] documented as of this encounter
--- OUTSIDE RECORDS SUMMARY | 2022-06-18 10:24 | XMS_ITS | Encounter Summary ---
:1985 Author Organization [place] Address [facility] [facility] 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, single [facility] or unspecified fetus [address] [facility] (Primary Dx) [place], [place] [address] [place], [place] [phone] [address] Social History Tobacco Use Types Packs/Day Years Used Date Never Smoker Alcohol Use Standard Drinks/Week Comments Yes 0 (1 standard drink = 0.6 oz pure alcoho l) occ Sex Assigned at Date Recorded Not on file COVID-19 Exposure Response Date Recorded In the last month, have you been in contact with No / Unsure 10/26/2021 1:52 PM RETENTION SPECIALIST someone who was confirmed or suspected to have Coronavirus / COVID-19? documented as of this encounter Progress Notes Ce Andersen MD - 10/26/2021 2:00 PM CST Please see the imaging tab for details of the ultrasound performed today. Ce Andersen MD Specialist in Maternal- Medicine NTION SPECIALIST documented in this encounter Plan of Treatment Not on filedocumented as of this encounter Visit Diagnoses Diagnosis complicated by congenita l heart disease, single or unspecified fetus - Primary documented in this encounter Care Teams Mainframe Systems Engineer Relationship Specialty Start Date End Date [facility] PCP - General 09/05/17 [address] [place] [address] documented as of this encounter
--- OUTSIDE RECORDS SUMMARY | 2022-06-18 10:25 | XMS_ITS | Encounter Summary ---
:1985 Author Organization [place] Address [address] [place] [address]. [place] [address] Care Team Providers Name Role Phone Unavailable Primary Care Provider Unavailable Encounter Details Date Type Department Care Team Description 04/12/2005 Emergency room Doron Sargent EMERGENCY PHYSIC VIGNESH INMAN [address] [place] [address] (Wo rk) Social History Tobacco Use Types Packs/Day Years Used Date Never Assessed Sex Assigned at Date Recorded Not on file documented as of this encounter Progress Notes Interface, Correctional Supply Supervisor - 04/12/2005 11:59 PM CDT : 89 CHIEF COMPLAINT: Left foot pain. 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 [id number] JOJO SARGENT MD MT: Document: [id number] [place], [place] Name: MR#: TRINITY AYALA [id number] EMERGENCY ROOM ENCOUNTER Page 2 of 2 LCN: ERC DSC: 04/12/2005 [place], [place] Name: MR#: TRINITY AYALA -[id number] : Admit Date: Account #: 1985 04/12/2005 [id number] Doctor: JOJO SARGENT MD EMERGENCY ROOM ENCOUNTER Page 1 of 2 documented in this encounter Plan of Treatment Not on filedocumented as of this encounter Visit Diagnoses Not on filedocumented in this encounter
--- OUTSIDE RECORDS SUMMARY | 2022-06-18 10:25 | XMS_ITS | Encounter Summary ---
:1985 Author Organization [place] Address [address] [place] [address] Care Team Providers Name Role Phone Unavailable Primary Care Provider Unavailable Encounter Details Date Type Department Care Team Description 04/12/2005 Results Only [facility] Results EMERGENCY PHYSI CELIO INMAN [address] [place] [address] (Wo rk) Social History [...]
--- OUTSIDE RECORDS SUMMARY | 2022-06-18 10:25 | XMS_ITS | Encounter Summary ---
:1985 Author Organization [place] Address [address] [place] [address] Care Team Providers Name Role Phone Unavailable Primary Care Provider Unavailable Encounter Details Date Type Department Care Team Description 10/12/2006 Results Only [facility] Wander Arguello MD Hospital Results [address] [place] [phone] Social History Tobacco Use Types Packs/Day Years Used Date Never Assessed Sex Assigned at Date Recorded Not on file documented as of this encounter Plan of Treatment Not on filedocumented as of this encounter Procedures Procedure Name Priority Date/Time Associated Diagnosis Comme nts HC CT HEAD WO Routine 10/12/2006 8:56 AM Results for this CONTRAST COMMERCIAL COLLECTIONS SPECIALIST procedure are i n the results section. documented in this encounter Results CT SCAN HEAD/BRAIN (10/12/2006 8:56 AM COMMERCIAL COLLECTIONS SPECIALIST) Specimen (Source) Anatomical Collection Method Collection Time Re ceived Time Location / / Volume Laterality 10/12/2006 8:56 AM COMMERCIAL COLLECTIONS SPECIALIST Impressions RADIOLOGY RESULTS - 10/12/2006 9:04 [...]
--- OUTSIDE RECORDS SUMMARY | 2022-06-18 10:25 | XMS_ITS | Encounter Summary ---
:1985 Author Organization [place] Address [address] [place] [address]. [place] [address] Care Team Providers Name Role Phone Unavailable Primary Care Provider Unavailable Encounter Details Date Type Department Care Team Description 07/29/2005 Emergency room Adrienne Luong MD [facility] [address] [facility] [address] [place] [address] (Wo rk) Social History Tobacco [...] HECTOR Name: TRINITY AYALA MRN: [id number] Account: [id number] : 1985 Visit Date: 07/29/2005 Document: [id number] documented in this encounter Plan of Treatment Not on filedocumented as of this encounter Visit Diagnoses Not on filedocumented in this encounter
--- OUTSIDE RECORDS SUMMARY | 2022-06-18 10:25 | XMS_ITS | Encounter Summary ---
:1985 Author Organization [facility] Address [address] [place] [address] Care Team Providers Name Role Phone Unavailable Primary Care Provider Unavailable Encounter Details Date Type Department Care Team Description 03/29/2022 Orders Only Department of Sleep Rui Godinez Foca l Complex Partial Medicine in Karyn Poon, M.P .H. Epilepsy Not [place] [address] Intractable Without [address] [place], [place] Status Epilepticus [place] [phone] ([facility]) (Primary Dx) [address] Social History Tobacco Use [...] or relatives? How often do you attend yazdanism or Never 2021 episcopal services? Do you belong to any clubs or No 11/08/2021 organizations such as yazdanism groups, unions, fraternal or athletic groups, or [...] or slept in a prison (including now)? Education Answer Date Recorded What [...]
--- OUTSIDE RECORDS SUMMARY | 2022-06-18 10:25 | XMS_ITS | Encounter Summary ---
:1985 Author Organization [facility] Address [address] [place] [address] Care Team Providers Name Role Phone Unavailable Primary Care Provider Unavailable Encounter Details Date Type Department Care Team Description 08/07/2021 Clinical Communication Department of Neurology Rui Godinez, in Navya Bose M.D., M.P.H. [address] [place] [address] [place], [place] [phone] [address] Social History Tobacco Use Types Packs/Day [...] do you attend shinto or Never 2021 hindu services? Do you [...] place to sleep or slept in a longterm (including now)? Education Answer Date Recorded What is the highest level of school Associate degree: gómez wyatt, 10/10/2020 you have completed or the highest technical, or vocational p natan degree you have received? Sex Assigned at Date Recorded Female 02/02/2019 3:06 PM CDT documented as of this encounter Miscellaneous Notes Telephone Encounter - Sally Wallis L.P.N. - 09/05/2021 8:42 AM HAND ROUTER OPERATOR Portal message sent. ROUTER OPERATOR Telephone Encounter - Sally Wallis L.P.N. - 08/16/2021 2:10 PM HAND ROUTER OPERATOR Message left to return call. ROUTER OPERATOR Telephone Encounter - Sally Wallis L.P.N. - [...]
--- OUTSIDE RECORDS SUMMARY | 2022-06-18 10:25 | XMS_ITS | Encounter Summary ---
:1985 Author Organization [place] Address [address] [place] [address] Care Team Providers Name Role Phone Unavailable Primary Care Provider Unavailable Encounter Details Date Type Department Care Team Description 03/07/2007 Emergency room Jessika Kidd EMERGENCY PHYSIC VIGNESH INMAN [address] [facility] [place], [place] [phone] (Wo rk) Social History Tobacco Use Types Packs/Day Years Used Date Never Assessed Sex Assigned at Date Recorded Not on file documented as of this encounter Progress Notes Interface, Enrollment Services Vice President - 05/02/2007 3:08 PM CDT FINAL CHIEF [...] appear grossly intact. No focal deficits. SKIN: Sunshine, warm and dry. EMERGENCY DEPARTMENT COURSE: The [...] EM#[id number] Name: TRINITY AYALA MRN: [id number] Account: [id number] : 1985 Visit Date: 03/07/2007 Document: [id number] documented in this encounter Plan of Treatment Not on filedocumented as of this encounter Visit Diagnoses Not on filedocumented in this encounter
--- OUTSIDE RECORDS SUMMARY | 2022-06-18 10:25 | XMS_ITS | Encounter Summary ---
:1985 Author Organization [place] Address [address] [place] [address] Care Team Providers Name Role Phone Unavailable Primary Care Provider Unavailable Encounter Details Date Type Department Care Team Description 09/25/2004 Results Only [facility] Results Saad Dominique [place] [address] Social History Tobacco Use Types Packs/Day Years Used Date Never Assessed Sex Assigned at Date Recorded Not on file documented as of this encounter Plan of Treatment Not on filedocumented as of this encounter Procedures Procedure Name Priority Date/Time Associated Diagnosis Comme nts HC CT ABDOMEN W/O Routine 09/25/2004 5:23 AM Resu lts for this CONTRAST ICER AIR CONDITIONING procedure are i n the results section. documented in this encounter Results CT SCAN ABDOMEN (09/25/2004 5:23 AM ICER AIR CONDITIONING) Specimen (Source) Anatomical Collection Method Collection Time Re ceived Time Location / / Volume Laterality 09/25/2004 5:23 AM ICER AIR CONDITIONING Impressions Pacs, Data Conversion - 10/06/2004 2:[address] ABDOMEN & PELVIS WITHOUT CONTRAST - [...]
--- OUTSIDE RECORDS SUMMARY | 2022-06-18 10:25 | XMS_ITS | Clinical Summary ---
:1985 Author Organization [facility] Address [address] [place] [address] Care Team Providers Name Role Phone Unavailable Primary Care Provider Unavailable Source Comments Patient records contain information from all sites at [facility]. For routine questions regarding patient records, call [phone] during business hours, M-F 8:00 AM - 5:00 PM Central Time. Record requests for emergency care only can be directed to [phone] at any time.[facility] Allergies No known active allergies Medications [...] or relatives? How often do you attend anabaptism or Never 2021 gnosticist services? Do you belong to any clubs or No 11/08/2021 organizations such as anabaptism groups, unions, fraternal or athletic groups, or [...] Comments Blood Pressure 116/74 08/25/2019 2:01 PM AGRICULTURAL EDUCATION INSTRUCTOR Pulse 76 08/25/2019 2:01 PM AGRICULTURAL EDUCATION INSTRUCTOR Temperature - - Respiratory Rate - - Oxygen Saturation - - Inhaled Oxygen Concentration - - Weight 84.2 kg (185 lb 10 oz) 08/25/2019 2:01 PM AGRICULTURAL EDUCATION INSTRUCTOR Height - - Body Mass Index - [...] ss Type Group BLUE CROSS ANTHMARIO BLUE [id number] 2018-Manuel [phone] PO KAREN X [id number] PPO BLUE [facility] ACCESS t [address] [place] [address]
--- OUTSIDE RECORDS SUMMARY | 2022-06-18 10:25 | XMS_ITS | Encounter Summary ---
:1985 Author Organization [place] Address [address] [place] [address] Care Team Providers Name Role Phone Unavailable Primary Care Provider Unavailable Encounter Details Date Type Department Care Team Description 11/08/2006 Historic Results INTERFACED REPORT Salome Cornejo cas, MD EMERGENCY PHYSIC VIGNESH INMAN [address] [place] [address] (Wo rk) Social History Tobacco Use Types Packs/Day Years Used Date Never Assessed Sex Assigned at Date Recorded Not on file documented as of this encounter Plan of Treatment Not on filedocumented as of this encounter Procedures Procedure Name Priority Date/Time Associated Comments Diagnosis HEMOGRAM DIFFERENTIAL STAT 11/08/2006 11:36 Re sults for this AND PLATELET PM SHOP COOPER procedure are i n the results section. LEVETIRACETAM LEVEL STAT 11/08/2006 11:36 Resu lts for this PM SHOP COOPER procedure are i n the results section. BASIC METABOLIC PANEL STAT 11/08/2006 11:36 Re sults for this PM SHOP COOPER procedure are i n the results section. ROUTINE UA WITH STAT 11/08/2006 11:29 Results for this MICROSCOPIC PM SHOP COOPER procedure are i n the results section. documented in this encounter Results Hemogram differential and platelet (11/08/2006 11:36 PM SHOP COOPER) [facility] Method Time Signature MCV 88 78 [...] / Volume Laterality 11/08/2006 11:36 11/08/2006 PM SHOP COOPER 11:16 PM SHOP COOPER Palomo Cornejo MD LAB - BLOOD ORDERABLES Performing Organization Address City/State/ZIP Code Phon e Number MISYS (ABNORMAL) Basic metabolic panel (11/08/2006 11:36 PM SHOP COOPER) P athologist Signature Sodium 137 133 - [...] / Volume Laterality 11/08/2006 11:36 11/08/2006 PM SHOP COOPER 11:16 PM SHOP COOPER Palomo Cornejo MD LAB - BLOOD ORDERABLES Performing Organization Address City/[facility]/ZIP Code Phon e Number MISYS Levetiracetam level (11/08/2006 11:36 PM SHOP COOPER) [facility] Signature Levetiracetam <2.0 MISYS Level Comment: Unit: ug/ml (Note) EXPECTED STEADY STATE TROUGH CONCENTRATI ONS IN PATIENTS RECEIVING RECOMMENDED DAILY DOS AGES: 5 - 45 ug/ml. TOXIC RANGE HAS NOT BEEN ESTABLISHED. Analysis performed by [employer] [place] [address] Specimen Anatomical Collection Method Collection Time Receive d Time (Source) Location / / Volume Laterality 11/08/2006 11:36 11/08/2006 PM SHOP COOPER 11:16 PM SHOP COOPER Palomo Cornejo MD LAB - BLOOD ORDERABLES Performing Organization Address [facility] Phon e Number MISYS (ABNORMAL) Routine UA with microscopic (11/08/2006 11:29 PM SHOP COOPER) [facility] gist Method Time Signature Source Midstream MISYS Urine Color Urine Yellow MISYS Appearance Urine Clear MISYS Glucose Urine Negative NEG mg/dL MISYS Bilirubin Urine Negative NEG MISYS Ketones Urine Negative NEG mg/dL MISYS Specific [place] 1.019 1.003 - MISYS Urine 1.035 Blood [...] / Volume Laterality 11/08/2006 11:29 11/08/2006 PM SHOP COOPER 11:16 PM SHOP COOPER Palomo Cornejo MD LAB - URINE ORDERABLES Performing Organization Address City/State/ZIP Code Phon e Number MISYS documented in this encounter Visit Diagnoses Not on filedocumented in this encounter
--- OUTSIDE RECORDS SUMMARY | 2022-06-18 10:25 | XMS_ITS | Encounter Summary ---
:1985 Author Organization [facility] Address [address] [place] [address] Care Team Providers Name Role Phone Unavailable Primary Care Provider Unavailable Reason for Visit Reason Comments Med Refill Encounter Details Date Type Department Care Team Description 08/08/2021 Refill Department of Neurology in Rui Godinez M.D., Med Refill [place], [place] M.P.H. [address] [place] [address] [place] [address] [phone] (Wo rk) Social History Tobacco Use Types [...] you attend oriental orthodox or Never 2021 orthodox services? Do you belong to any clubs [...]
--- OUTSIDE RECORDS SUMMARY | 2022-06-18 10:25 | XMS_ITS | Encounter Summary ---
:1985 Author Organization [place] Address [address] [place] [address] Care Team Providers Name Role Phone Unavailable Primary Care Provider Unavailable Encounter Details Date Type Department Care Team Description 10/12/2006 Historic Results INTERFACED REPORT Wander Arguello MD [address] [place] [address] Social History Tobacco Use Types Packs/Day Years Used Date Never Assessed Sex Assigned at Date Recorded Not on file documented as of this encounter Plan of Treatment Not on filedocumented as of this encounter Procedures Procedure Name Priority Date/Time Associated Diagnosis Comme nts EKG 12 LEAD Routine 10/12/2006 8:37 AM Results f or this APPLE TURNER procedure are i n the results section . documented in this encounter Results EKG 12 LEAD (10/12/2006 8:37 AM APPLE TURNER) Component Value Ref Range Test Analysis Performed Pathologis t Method Time At Signature Ventricular Rate 83 BPM RADIOLOGY RESULTS Atrial Rate 83 BPM RADIOLOGY RESULTS WV Interval 158 ms RADIOLOGY RESULTS QRS Duration 82 ms RADIOLOGY RESULTS QT 340 ms RADIOLOGY RESULTS QTc 399 ms RADIOLOGY RESULTS P [place] 54 degrees RADIOLOGY RESULTS R AXIS 48 degrees RADIOLOGY RESULTS T [place] 20 degrees RADIOLOGY RESULTS Interpretation Poor data [...] Volume Laterality 10/12/2006 8:37 AM 7 8:34 APPLE TURNER AM APPLE TURNER Wander Arguello MD ECG ORDERABLES Performing Organization Address City/State/ZIP Code Phon e Number RADIOLOGY RESULTS documented in this encounter Visit Diagnoses Not on filedocumented in this encounter
--- OUTSIDE RECORDS SUMMARY | 2022-06-18 10:25 | XMS_ITS | Encounter Summary ---
:1985 Author Organization [place] Address [address] [place] [address]. [place] [address] Care Team Providers Name Role Phone Unavailable Primary Care Provider Unavailable Encounter Details Date Type Department Care Team Description 10/12/2006 Historic Results INTERFACED REPORT Wander Arguello MD [address] [place] [address] [place] [phone] Social History Tobacco Use Types Packs/Day Years Used Date Never Assessed Sex Assigned at Date Recorded Not on file documented as of this encounter Plan of Treatment Not on filedocumented as of this encounter Procedures Procedure Name Priority Date/Time Associated Comments Diagnosis HEMOGRAM DIFFERENTIAL STAT 10/12/2006 8:45 AM Results for this AND PLATELET EQUAL OPPORTUNITY DIRECTOR procedure are i n the results section. HCG QUALITATIVE STAT 10/12/2006 8:45 AM Result s for this EQUAL OPPORTUNITY DIRECTOR procedure are i n the results section. BASIC METABOLIC PANEL STAT 10/12/2006 8:45 AM Results for this EQUAL OPPORTUNITY DIRECTOR procedure are i n the results section. documented in this encounter Results (ABNORMAL) Hemogram differential and platelet (10/12/2006 8:45 AM EQUAL OPPORTUNITY DIRECTOR) [facility] Method Time Signature MCV 89 78 [...] Volume Laterality 10/12/2006 8:45 AM 7 8:34 EQUAL OPPORTUNITY DIRECTOR AM EQUAL OPPORTUNITY DIRECTOR Wander rAguello MD LAB - BLOOD ORDERABLES Performing Organization Address City/State/ZIP Code Phon e Number MISYS Basic metabolic panel (10/12/2006 8:45 AM EQUAL OPPORTUNITY DIRECTOR) P athologist Signature Sodium 137 133 - [...] Volume Laterality 10/12/2006 8:45 AM 7 8:34 EQUAL OPPORTUNITY DIRECTOR AM EQUAL OPPORTUNITY DIRECTOR Wander Arguello MD LAB - BLOOD ORDERABLES Performing Organization Address City/State/[facility] Code Phon e Number MISYS HCG qualitative (10/12/2006 8:45 AM EQUAL OPPORTUNITY DIRECTOR) [facility] gist Method Time Signature HCG Qualitative Negative NEG MISYS Serum Specimen Anatomical Collection Method Collection Time Receive d Time (Source) Location / / Volume Laterality 10/12/2006 8:45 AM 7 8:34 EQUAL OPPORTUNITY DIRECTOR AM EQUAL OPPORTUNITY DIRECTOR Wander Arguello MD LAB - BLOOD ORDERABLES Performing Organization Address City/State/ZIP [facility] Phon e Number MISYS documented in this encounter Visit Diagnoses Not on filedocumented in this encounter
--- OUTSIDE RECORDS SUMMARY | 2022-06-18 10:25 | XMS_ITS | Encounter Summary ---
:1985 Author Organization [facility] Address [address] [place] [address] Care Team Providers Name Role Phone Unavailable Primary Care Provider Unavailable Reason for Visit Reason Comments Med Refill Encounter Details Date Type Department Care Team Description 10/13/2021 Refill Department of Neurology in Rui Godinez M.D., Med Refill [place], [place] M.P.H. [address] [place] [address] [place] [address] [phone] (Wo rk) Social History Tobacco Use Types [...] do you attend baptist or Never 2021 anglican services? Do you belong to any clubs [...] Karina Amanda M.D. - 10/16/2021 9:43 AM KEYBOARD TEACHER I approved short term refills. Pt has only seen Neurology in our clinic. I will defer to your team for longer term refills or have her set up PCP in [place]. OARD TEACHER documented in this encounter Plan of Treatment Not on filedocumented as of this encounter Visit Diagnoses Not on filedocumented in this encounter
--- OUTSIDE RECORDS SUMMARY | 2022-06-18 10:25 | XMS_ITS | Encounter Summary ---
:1985 Author Organization [facility] Address [address] [place] [address] Care Team Providers Name Role Phone Unavailable Primary Care Provider Unavailable Encounter Details Date Type Department Care Team Description 09/25/2004 Emergency room Armando Dominique MD [place] [address] Social History Tobacco Use Types Packs/Day Years Used Date Never Assessed Sex Assigned at Date Recorded Not on file documented as of this encounter ED Notes Armando Dominique - 09/25/2004 12:00 AM INSOLE DEPARTMENT WORKER : 1985 CHIEF COMPLAINT: Abdominal pain. HISTORY [...] should be reviewed with the Sherita Gonzalez document control coordinator by Monday, September 27, 2004. The patient is to contact Dr. Gonzáles sooner if she redevelops abdominal pain, with or without fever or vomiting. 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 [id number]_ ARMANDO DOMINIQUE MD MT: Document: [id number] [place], [place] Name: MR#: TRINITY RAMIREZ -[id number] EMERGENCY ROOM ENCOUNTER Page 3 of 2 LCN: ROSE DSC: 09/25/2004 [place], [place] Name: MR#: TRINITY RAMIREZ -[id number] : Admit Date: Account #: 1985 09/25/2004 [id number] Doctor: ARMANDO DOMINIQUE MD EMERGENCY ROOM ENCOUNTER Page 1 of 2 documented in this encounter Plan of Treatment Not on filedocumented as of this encounter Visit Diagnoses Not on filedocumented in this encounter
--- OUTSIDE RECORDS SUMMARY | 2022-06-18 10:25 | XMS_ITS | Encounter Summary ---
:1985 Author Organization [facility] Address [address] [place] [address]. [place] [address] Care Team Providers Name Role Phone Unavailable Primary Care Provider Unavailable Encounter Details Date Type Department Care Team Description 10/12/2006 Emergency room Wander Arguello MD [address] [place] [phone] Social History Tobacco Use Types Packs/Day Years Used Date Never Assessed Sex Assigned at Date Recorded Not on file documented as of this encounter Progress Notes Interface, Psychologist Social - 10/17/2006 10:17 AM PROJECT MANAGER INDUSTRIAL FINAL CHIEF COMPLAINT: Weakness. HISTORY OF PRESENT [...] has had some upper respiratory symptoms since [place] with a cough that has been nonproductive. [...] another EEG. She can do that through [facility] which is her primary clinic. [...] including her parent's and boyfriend. I will arc cutter plasma arc her a work slip excusing her from her duties for 2 days. She is to have an EEG done at [facility] as soon as possible and they can call today to set that up. The patient is to be rechecked with her doctor within 5-6 days, sooner if needed and may return to emergency department as needed. DIAGNOSIS: Seizure. Electronically signed on 10/17/2006 10:17 by WANDER ARGUELLO MD MT: MARIO#[id number] Name: TRINITY AYALA MRN: [id number] Account: [id number] : 1985 Visit Date: 10/12/2006 Document: [id number] ECT MANAGER INDUSTRIAL documented in this encounter Plan of Treatment Not on filedocumented as of this encounter Visit Diagnoses Not on filedocumented in this encounter
--- OUTSIDE RECORDS SUMMARY | 2022-06-18 10:25 | XMS_ITS | Encounter Summary ---
:1985 Author Organization [facility] Address [address] [place] [address] Care Team Providers Name Role Phone Unavailable Primary Care Provider Unavailable Reason for Referral Outpatient (Routine) - Authorized Specialty Diagnoses / Procedures Referred By Contact Refer red To Contact Neurology Rui Godinez M.D ., M.P.H. 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 [address] [place] [address] Referral ID Status Reason Start Date Expiration Date Visits Requ ested Visits Authorized [id number] Closed 10/10/2020 10/10/2021 1 1 Encounter Details Date Type Department Care Team Description 11/08/2021 Telemedicine Department of Rui Godinez, Focal Comp tripp Partial Neurology in [place], M.P.H. Epilepsy Not [place], [place] [address] [place] [address] Intractable Without [address] [place], [place] [address] (HCC) [address] Social History Tobacco Use Types [...] do you attend yazdanism or Never 2021 muslim services? Do you belong to any clubs [...] place to sleep or slept in a long-term (including now)? Education Answer Date Recorded What [...] technology by Rui Godinez M.D., M.P.H. from [facility] to the patient in their home. Virtual [...] Simpson's in Dr. Barnhart up in the [facility]. Interested reader is directed to that note from 02/02/2019. She had not any seizures since I follow her here in [place] and it has been a year since [...] preparation, and the actual timeduring the video. SHIP documented in this encounter Plan of Treatment Scheduled Referrals Name Type Priority Associated Diagnoses Order S [facility] Neurology office Outpatient Referral Routine Expe cted: visit (clinic) 11/08/2022 (Approximate), Expires: 02/05/2023 documented as of this encounter Visit Diagnoses Diagnosis Focal Complex Partial Epilepsy Not Intra ctable Without Status Epilepticus (HCC) documented in this encounter
--- OUTSIDE RECORDS SUMMARY | 2022-06-18 10:25 | XMS_ITS | Encounter Summary ---
:1985 Author Organization [facility] Address [address] [place] [address] Care Team Providers Name Role Phone Unavailable Primary Care Provider Unavailable Encounter Details Date Type Department Care Team Description 11/08/2006 Emergency room Spike Quispe MD EMERGENCY PHYSIC VIGNESH INMAN [address] [employer] [address] [place], [place] [address] (Wo rk) Social History Tobacco Use Types Packs/Day Years Used Date Never Assessed Sex Assigned at Date Recorded Not on file documented as of this encounter Progress Notes Spike Quispe - 11/11/2006 2:21 AM WINK CUTTER OPERATOR FINAL CHIEF COMPLAINT: Possible seizure. HISTORY OF [...] was able get the MRI report from [facility] that was done earlier today. This showed [...] MARIO#[id number] Name: TRINITY AYALA MRN: [id number] Account: [id number] : 1985 Visit Date: 11/08/2006 Document: [id number] CUTTER OPERATOR documented in this encounter Plan of Treatment Not on filedocumented as of this encounter Visit Diagnoses Not on filedocumented in this encounter
--- OUTSIDE RECORDS SUMMARY | 2022-06-18 10:26 | XMS_ITS | Encounter Summary ---
:1985 Author Organization [facility] Address [address] [place] [address] Care Team Providers Name Role Phone Unavailable Primary Care Provider Unavailable Reason for Visit Reason Onset Date Comments Neurology Suggestions 01/06/2019 Encounter Details Date Type Department Care Team Description 01/06/2019 Clinical Communication Department of Rui Godinez Neurology in [place], Suggestions Eduardo Gee. [address] [address] Social History Tobacco Use [...] or relatives? How often do you attend faith or Never 2021 scientology services? Do you belong to any clubs or No 11/08/2021 organizations such as faith groups, unions, fraternal or athletic groups, or [...] or slept in a jail (including now)? Sex Assigned at Date Recorded Female 02/02/2019 3:06 PM CDT documented as of this encounter Miscellaneous Notes Telephone Encounter - Rui Godinez M.D., M.P.H. - 01/07/2019 8:23 AM CDT Lets get her in to [place] Telephone Encounter - Sally Wallis L.P.N. - 01/06/2019 1:52 PM CDT Spoke to [facility]. Patient's delivery date is 02/28/19. Since patient is not able to get in to see you before delivery date OB Gia Kirkland at [facility] would like for you to touch base with her in regards to how much seizure medication - increase/decrease. Labs and what to do after delivery. Telephone Encounter - Diana Candelario - 01/06/2019 1:33 PM CDT Patient returning phone call. Please advise. Ok to leave a detailed VM. Call back at [phone] Telephone Encounter - Sally Wallis L.P.N. - 01/06/2019 10:46 AM CDT Attempted to contact patient. Patient has been seen in [place] for seizures. At this time there is [...]
--- OUTSIDE RECORDS SUMMARY | 2022-06-18 10:26 | XMS_ITS | Encounter Summary ---
:1985 Author Organization [facility] Address [address] [place] [address] Care Team Providers Name Role Phone Unavailable Primary Care Provider Unavailable Reason for Visit Reason Onset Date Comments pharm calling for dosage verification 12/01/2019 Encounter Details Date Type Department Care Team Description 12/01/2019 Clinical Communication Department of Rui Godinez calling for Neurology in [place], dosage verifica Alma Fitzgerald.PMichaelH. [place] [address] [phone] Social History Tobacco Use Types Packs/Day [...] or relatives? How often do you attend scientology or Never 2021 scientologist services? Do you belong to any clubs or No 11/08/2021 organizations such as scientology groups, unions, fraternal or athletic groups, or [...] highest level of school Associate degree: academ [employer] program 08/25/2019 you have completed or the highest degree you have received? Sex Assigned at Date Recorded Female 02/02/2019 3:06 PM CDT documented as of this encounter Miscellaneous Notes Telephone Encounter - Nivia Beasley - 12/01/2019 8:50 AM CST Reason for Communication: [facility] in [place] called to verify dosage of Lamictal. Current Can Nursing/Provider leave a detailed message: Did the patient refuse triage through Nurse line? (for symptom based concerns): Action Needed: please call Name of Medication (if relevant): RITY INVESTIGATOR documented in this encounter Plan of Treatment Not on filedocumented as of this encounter Visit Diagnoses Not on filedocumented in this encounter
--- OUTSIDE RECORDS SUMMARY | 2022-06-18 10:26 | XMS_ITS | Encounter Summary ---
:1985 Author Organization [facility] Address [address] [place] [address] Care Team Providers Name Role Phone Unavailable Primary Care Provider Unavailable Reason for Visit Reason Comments Med Refill Encounter Details Date Type Department Care Team Description 10/27/2020 Refill Department of Neurology in Rui Godinez M.D., Med Refill [place], [place] M.P.H. [address] [place] [address] [place] [address] [phone] (Wo rk) Social History Tobacco Use Types [...] do you attend catholic or Never 2021 muslim services? Do you [...] or slept in a usp (including now)? Education Answer Date Recorded What [...]
--- OUTSIDE RECORDS SUMMARY | 2022-06-18 10:26 | XMS_ITS | Encounter Summary ---
:1985 Author Organization [facility] Address [address] [place] [address] Care Team Providers Name Role Phone Unavailable Primary Care Provider Unavailable Encounter Details Date Type Department Care Team Description 02/19/2019 Orders Only Department of Neurology in Rui Godinez M.D., [place], [place] M.P.H. [address] [place] [address] [address] [place] [address] [place], [place] [phone] [address] (Wo rk) Social History Tobacco Use [...] do you attend catholic or Never 2021 holiness services? Do you [...] or slept in a custodial (including now)? Sex Assigned at Date Recorded Female 02/02/2019 3:06 PM CDT documented as of this encounter Plan of Treatment Not on filedocumented as of this encounter Visit Diagnoses Not on filedocumented in this encounter
--- OUTSIDE RECORDS SUMMARY | 2022-06-18 10:26 | XMS_ITS | Encounter Summary ---
:1985 Author Organization [facility] Address [address] [place] [address] Care Team Providers Name Role Phone Unavailable Primary Care Provider Unavailable Encounter Details Date Type Department Care Team Description 10/20/2018 Orders Only Department of Rui Godinez, Colleen on Related Neurology in [place] Bose, M.P .H. Focal Partial Idiopathic [place] [address] Epilepsy And Epileptic [address] [place], [place] [address] Of Localized Onset Not [phone] Intractable With Status Epilepticus (HCC) [phone] (Primary Dx) (Fax) Social History Tobacco Use [...] do you attend druze or Never 2021 orthodoxy services? Do you [...] or slept in a long-term (including now)? Sex Assigned at Date Recorded [...]
--- OUTSIDE RECORDS SUMMARY | 2022-06-18 10:26 | XMS_ITS | Encounter Summary ---
:1985 Author Organization [facility] Address [address] [place] [address] Care Team Providers Name Role Phone Unavailable Primary Care Provider Unavailable Encounter Details Date Type Department Care Team Description 11/14/2018 Orders Only [facility] Humaira Beltran [address] [place] [address] Social History Tobacco Use [...] or relatives? How often do you attend confucianism or Never 2021 evangelical services? Do you belong to any clubs or No 11/08/2021 organizations such as confucianism groups, unions, fraternal or athletic groups, or [...] or slept in a residential (including now)? Sex Assigned at Date Recorded Female 02/02/2019 3:06 PM CDT documented as of this encounter Plan of Treatment Not on filedocumented as of this encounter Visit Diagnoses Not on filedocumented in this encounter
--- OUTSIDE RECORDS SUMMARY | 2022-06-18 10:26 | XMS_ITS | Encounter Summary ---
:1985 Author Organization [facility] Address [address] [place] [address] Care Team Providers Name Role Phone Unavailable Primary Care Provider Unavailable Reason for Referral Outpatient (Routine) - Closed Specialty Diagnoses / Procedures Referred By Contact Refer red To Contact Neurology Rui Godinez M.D ., M.P.H. [facility] Region [address] [address] Referral ID Status Reason Start Date Expiration Date Visits Requ ested Visits Authorized [id number] Closed 08/25/2019 08/24/2020 1 1 GER SEMICONDUCTOR Reason for Visit Reason Comments Seizures Outpatient (Routine) - Closed Specialty Diagnoses / Procedures Referred By Contact Refer red To Contact Neurology Rui Godinez M.D ., M.P.H. [facility] Region [address] [phone] Referral ID Status Reason Start Date Expiration Date Visits Requ ested Visits Authorized [id number] Closed 02/02/2019 02/02/2020 1 1 Encounter Details Date Type Department Care Team Description 08/25/2019 Office Visit Department of Rui Godinez, Focal Comp tripp Partial Neurology in [place] Bose, M.P .H. Epilepsy Not [place] [address] [place] [address] Intractable Without [address] [place], [place] Status Ep[place]ptic[place] [address] ([facility]) (Primary Dx) [address] Social History Tobacco Use [...] or relatives? How often do you attend caodaism or Never 2021 druze services? Do you belong to any clubs or No 11/08/2021 organizations such as caodaism groups, unions, fraternal or athletic groups, or [...] highest level of school Associate degree: academ [employer] program 08/25/2019 you have completed or the highest degree you have received? Sex Assigned at Date Recorded Female 02/02/2019 3:06 PM CDT documented as of this encounter Last Filed Vital Signs Vital Sign Reading Time Taken Comments Blood Pressure 116/74 08/25/2019 2:01 PM MANAGER SEMICONDUCTOR Pulse 76 08/25/2019 2:01 PM MANAGER SEMICONDUCTOR Temperature - - Respiratory Rate - - Oxygen Saturation - - Inhaled Oxygen Concentration - - Weight 84.2 kg (185 lb 10 oz) 08/25/2019 2:01 PM MANAGER SEMICONDUCTOR Height - - Body Mass Index - [...] the her prior neurologist up in the [facility] who had evaluated her with [...] More than three times a week Attends druze service: Never Active member of club or [...] Alert and oriented x 4. CRANIAL NERVES: supervisor parking lot II-XII intact and symmetric. No diplopia or [...] half was counseling. Rui Godinez M.D., M.P.H. 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
--- OUTSIDE RECORDS SUMMARY | 2022-06-18 10:26 | XMS_ITS | Encounter Summary ---
:1985 Author Organization [facility] Address [address] [place] [address] Care Team Providers Name Role Phone Unavailable Primary Care Provider Unavailable Encounter Details Date Type Department Care Team Description 11/20/2018 Clinical Communication Department of Sally Wallis Neurology in [place], [place] [address] [phone] Social History Tobacco Use Types Packs/Day Years [...] do you attend amish or Never 2021 buddhism services? Do you belong to any clubs [...] place to sleep or slept in a fdc (including now)? Sex Assigned at Date Recorded Female 02/02/2019 3:06 PM CDT documented as of this encounter Miscellaneous Notes Telephone Encounter - Sally Wallis L.P.N. - 11/20/2018 9:07 AM OUTPATIENT SERVICES DIRECTOR Contacted patient. This message is in reference to the message on 11/18/18. Received call from Mary REV CYCLE ACCT RESP. Phone number [phone] that call has been placed to see what the status was on Levetiracetam. The cost is $2000.00 . This is a out- of - pocket expense not a co-pay. Therefore there is nothing further that can be done to lower the cost. Patient has been made aware of this. ATIENT SERVICES DIRECTOR documented in this encounter Plan of Treatment Not on filedocumented as of this encounter Visit Diagnoses Not on filedocumented in this encounter
--- OUTSIDE RECORDS SUMMARY | 2022-06-18 10:26 | XMS_ITS | Encounter Summary ---
:1985 Author Organization [facility] Address [address] [place] [address] Care Team Providers Name Role Phone Unavailable Primary Care Provider Unavailable Reason for Visit Reason Comments Med Refill Encounter Details Date Type Department Care Team Description 10/20/2018 Refill Department of Neurology in Rui Godinez M.D., Med Refill [place], [place] M.P.H. [address] [facility] [address] [place] [address] [place] [address] (Wo rk) Social History Tobacco [...] do you attend scientology or Never 2021 evangelical services? Do you [...] or slept in a assisted (including now)? Sex Assigned at Date Recorded Female 02/02/2019 3:06 PM CDT documented as of this encounter Plan of Treatment Not on filedocumented as of this encounter Visit Diagnoses Not on filedocumented in this encounter
--- OUTSIDE RECORDS SUMMARY | 2022-06-18 10:26 | XMS_ITS | Encounter Summary ---
:1985 Author Organization [facility] Address [address] [place] [address] Care Team Providers Name Role Phone Unavailable Primary Care Provider Unavailable Encounter Details Date Type Department Care Team Description 02/18/2019 Clinical Communication Department of Rui Sommers, Medicine, Lidya Boss, M.P.H. [facility], [facility] [address] [place], [place] [address] [address] [place] [address] [facility] [phone] Social History Tobacco Use Types Packs/Day Years [...] do you attend uatsdin or Never 2021 nondenominational services? Do you belong to any clubs [...]
--- OUTSIDE RECORDS SUMMARY | 2022-06-18 10:26 | XMS_ITS | Encounter Summary ---
:1985 Author Organization [facility] Address [address] [place] [address] Care Team Providers Name Role Phone Unavailable Primary Care Provider Unavailable Reason for Visit Reason Onset Date Comments Rx issues 11/18/2018 Encounter Details Date Type Department Care Team Description 11/18/2018 Clinical Communication Department of Neurology Rui Godinez, Rx issues in [facility] kandis Boss, M.P.H. [address] [place] [address] [place] [address] Social History Tobacco Use Types Packs/Day [...] do you attend episcopal or Never 2021 tenriism services? Do you belong to any clubs [...] or slept in a penitentiary (including now)? Sex Assigned at Date Recorded Female 02/02/2019 3:06 PM CDT documented as of this encounter Miscellaneous Notes Telephone Encounter - Dena Mendiola L.P.N. - 11/18/2018 10:55 AM WARP PREPARER I called [facility], She is needing refills [...] informed that Dr. Godinez recommends meeting with Embossing Press Operator Molded Goods and Pharmacist to see if help can be obtained for the high out of pocket cost. Patient agrees to this. PREPARER Telephone Encounter - Sally Wallis L.P.N. - 11/18/2018 10:13 AM WARP PREPARER Contacted [facility]. Informed that I called the number provided for prior auth exception request form at . Forms had been faxed on 10/21/18. Was told to refax and put urgent on the request. Fax to . PREPARER Telephone Encounter - Zahra Perez - 11/18/2018 7:32 AM CST Patient calling regarding Rx has to be a name brand. Please call back [phone] PREPARER documented in this encounter Plan of Treatment Not on filedocumented as of this encounter Visit Diagnoses Diagnosis Seizure (HCC) - Primary documented in this encounter
--- OUTSIDE RECORDS SUMMARY | 2022-06-18 10:26 | XMS_ITS | Encounter Summary ---
:1985 Author Organization [facility] Address [address] [place] [address] Care Team Providers Name Role Phone Unavailable Primary Care Provider Unavailable Reason for Visit Reason Onset Date Comments Medical Information 11/18/2018 Encounter Details Date Type Department Care Team Description 11/18/2018 Clinical Department of Francisca Godinez Medical Communication Family MedicineKassy M.D. Information [facility], [address] in [facility] [address] [address] [phone] [place], [place] (Work) [phone] Social History Tobacco Use [...] do you attend scientologist or Never 2021 mu-ism services? Do you [...] Sally Wallis L.P.N. - 11/18/2018 2:40 PM LEGAL STENOGRAPHER [place] notes are under Document Viewer. L STENOGRAPHER Telephone Encounter - Vincenzo Spivey - 11/18/2018 11:28 AM CST Reason for Communication: [facility] pharmacy in [place] called and they need a prior Authorization for the medication, Keedmondra please advise. Current Can Nursing/Provider leave a detailed message: Did the patient refuse triage through Nurse line? (for symptom based concerns) Action Needed: Name of Medication (if relevant): rodger L STENOGRAPHER documented in this encounter Plan of Treatment Not on filedocumented as of this encounter Visit Diagnoses Not on filedocumented in this encounter
--- OUTSIDE RECORDS SUMMARY | 2022-06-18 10:26 | XMS_ITS | Encounter Summary ---
:1985 Author Organization [facility] Address [address] [place] [address] Care Team Providers Name Role Phone Unavailable Primary Care Provider Unavailable Encounter Details Date Type Department Care Team Description 10/20/2018 Documentation Department of Neurology in [place], [place] L.P.N. [address] [place] [address], [place] [phone] Social History Tobacco Use Types Packs/Day Years [...] do you attend episcopalian or Never 2021 mu-ism services? Do you [...] 1:23 PM CST See next phone message. NERATOR PLANT GENERAL SUPERVISOR documented in this encounter Plan of Treatment Not on filedocumented as of this encounter Visit Diagnoses Not on filedocumented in this encounter
--- OUTSIDE RECORDS SUMMARY | 2022-06-18 10:26 | XMS_ITS | Encounter Summary ---
:1985 Author Organization [facility] Address [address] [place] [address] Care Team Providers Name Role Phone Unavailable Primary Care Provider Unavailable Encounter Details Date Type Department Care Team Description 10/22/2018 Clinical Communication Department of Internal Kassy Godinez, Medicine in Karyn Bose, M.P. H. [place] [address] [place] [phone] Social History Tobacco Use Types Packs/Day Years [...] or relatives? How often do you attend hoahaoism or Never 2021 samaritan services? Do you belong to any clubs or No 11/08/2021 organizations such as hoahaoism groups, unions, fraternal or athletic groups, or [...] place to sleep or slept in a care home (including now)? Sex Assigned at Date Recorded Female 02/02/2019 3:06 PM CDT documented as of this encounter Plan of Treatment Not on filedocumented as of this encounter Visit Diagnoses Not on filedocumented in this encounter
--- OUTSIDE RECORDS SUMMARY | 2022-06-18 10:26 | XMS_ITS | Encounter Summary ---
:1985 Author Organization [facility] Address [address] [place] [address] Care Team Providers Name Role Phone Unavailable Primary Care Provider Unavailable Encounter Details Date Type Department Care Team Description 10/20/2018 Clinical Communication Department of Dena Mendiola Neurology in [place], [place] [address] [place] [phone] Social History Tobacco Use Types Packs/Day [...] do you attend mormon or Never 2021 evangelical services? Do you [...] Dena Mendiola L.P.N. - 10/20/2018 3:02 PM VICE PRESIDENT OF BUSINESS DEVELOPMENT Patient is notified. [facility] office also notified to start PA for Lamictal. PRESIDENT OF BUSINESS DEVELOPMENT Telephone Encounter - Rui Godinez M.D., M.P.H. - 10/20/2018 1:54 PM VICE PRESIDENT OF BUSINESS DEVELOPMENT I called and talked to the pharmacy ([facility] [place]) and refilled her Lamictal at 400 mg BID as she is currently taking. My last note (in [place]) shows that she was prescribed 300 mg BID so someone else must have increased the dose. PRESIDENT OF BUSINESS DEVELOPMENT Telephone Encounter - Dena Mendiola L.P.N. - 10/20/2018 1:43 PM VICE PRESIDENT OF BUSINESS DEVELOPMENT Patient calling and has seen Dr. Godinez in [place]. She is calling about her the prescription [...] taking 400 mg twice daily. She uses [facility] in [place]. Scanned notes from [place] are in the EMR from September. She would like a new rx sent to the pharmacy and to have CIERA 1. Please advise which dose she should be on. PRESIDENT OF BUSINESS DEVELOPMENT documented in this encounter Plan of Treatment Not on filedocumented as of this encounter Visit Diagnoses Not on filedocumented in this encounter
--- OUTSIDE RECORDS SUMMARY | 2022-06-18 10:26 | XMS_ITS | Encounter Summary ---
:1985 Author Organization [facility] Address [address] [place] [address] Care Team Providers Name Role Phone Unavailable Primary Care Provider Unavailable Encounter Details Date Type Department Care Team Description 10/20/2018 Clinical Communication Department of Dena Mendiola Neurology in [place], [place] [address] [place] [phone] Social History Tobacco Use Types Packs/Day [...] do you attend yazdanism or Never 2021 holiness services? Do you [...] Dena Mendiola L.P.N. - 10/27/2018 1:23 PM COPY HOLDER Received forms back from [facility] needing additional information. Dr. Godinez completes these and they are faxed back. HOLDER Telephone Encounter - Dena Mendiola L.P.N. - 10/22/2018 3:42 PM COPY HOLDER Forms are faxed to Neurology in [place] for Dr. Godinez to fill out. HOLDER Telephone Encounter - Dena Mendiola L.P.N. - 10/22/2018 3:37 PM COPY HOLDER I was given the fax number to fax the forms to. Patient is covered under [facility]. HOLDER Telephone Encounter - Dena Mendiola L.P.N. - 10/22/2018 3:33 PM COPY HOLDER Prior Auth office unable to help because a physician signature is needed on the forms. HOLDER Telephone Encounter - Dena Mendiola L.P.N. - 10/22/2018 2:31 PM COPY HOLDER I spoke to the patient to see if she had a fax number. She was only given the phone number. I informed her because it is a prior authorization, I will have the prior authorization office call [employer]. I notified Clemente Alfredo who was working on this yesterday and faxed the forms to her. HOLDER Telephone Encounter - Sydney Kim - 10/22/2018 12:03 PM CST Patient states she has faxed the form to Dr. Godinez. She also provided the phone number that Dr. Godinez or a nurse needs to call. , department [employer]. Please advise HOLDER Telephone Encounter - Dena Mendiola L.P.N. - 10/22/2018 9:07 AM COPY HOLDER I called [facility] to see that she got the message that the form was faxed. She indicated that she went to her HR because of the trouble of [facility] not seeing her in their data base. She said that her HR called [facility] and she was given new forms. The form that was faxed was the wrong form. She will call with a new fax number to send it to because there is no fax number on the form. She will fax the form to me today. HOLDER Telephone Encounter - Dena Mendiola L.P.N. - 10/21/2018 10:12 AM COPY HOLDER Left message to the patient that the form was faxed. HOLDER Telephone Encounter - Dena Mendiola L.P.N. - 10/21/2018 9:49 AM COPY HOLDER Form is faxed to [facility] [place], customer service. , phone Address [address] [address] [place] [address] HOLDER Telephone Encounter - Dena Mendiola L.P.N. - 10/21/2018 8:17 AM COPY HOLDER Phone call received yesterday from Prior Auth office Juni Cornejo. She is working on the prior Smart Panel for the [facility] and wanting to do a conference call to the insurance. Parties myself , Juni and [facility] to get the copay covered. Was on the phone for [address] [facility] and they were unable to help because [...] are here and on Dr. Godinez desk. HOLDER Telephone Encounter - Dena Mendiola L.P.N. - 10/20/2018 4:47 PM COPY HOLDER Member service number should be [phone]. Patient to fax forms tomorrow. HOLDER Telephone Encounter - Dena Mendiola L.P.N. - 10/20/2018 2:20 PM COPY HOLDER Patient calls and says that her insurance has changed to [facility] - [place], , Group [id number]. Phone number member services HOLDER Telephone Encounter - Dena Mendiola L.P.N. - 10/20/2018 2:09 PM COPY HOLDER EPA pool Please start a prior auth for the patients Lamictal that Dr. Godinez prescribed today. She needs brandname as she had many seizures when she tried the generic.Please do today as the patient is out of medication. Thank you, Thank you HOLDER documented in this encounter Plan of Treatment Not on filedocumented as of this encounter Visit Diagnoses Not on filedocumented in this encounter
--- OUTSIDE RECORDS SUMMARY | 2022-06-18 10:26 | XMS_ITS | Encounter Summary ---
:1985 Author Organization [facility] Address [address] [place] [address] Care Team Providers Name Role Phone Unavailable Primary Care Provider Unavailable Encounter Details Date Type Department Care Team Description 10/13/2018 Clinical Communication Department of Neurology Rui Godinez, in [facility] kandis Boss, M.P.H. [address] [place] [address] [address], [place] [phone] Social History Tobacco Use Types Packs/Day [...] do you attend mormon or Never 2021 caodaism services? Do you [...] : Prescription for LamoTRIgine was faxed to [facility] in [place] Information: patient/caller able to repeat back in their own words The following references were used: provider Herbert PRESIDENT QUALITY Telephone Encounter - Sally Wallis L.P.N. - 10/13/2018 8:38 AM VICE PRESIDENT QUALITY Contacted patient. Stated that she had the form faxed to our clinic that needs to be filled out. Needs brand name seizure medication. Has tried generic medication and had seizures while on them. Is aware that will be back in office on SatOctober 15. PRESIDENT QUALITY Telephone Encounter - Racquel Jimenez - 10/13/2018 [...] Godinez here but has seen him in [place]. Form is for a medication her insurance is charging her full weaver for because it is not the name brand. She is and needing this medication and needing Dr. Godinez to fill this out for her. Name of Medication (if relevant): PRESIDENT QUALITY documented in this encounter Plan of Treatment Not on filedocumented as of this encounter Visit Diagnoses Not on filedocumented in this encounter
--- OUTSIDE RECORDS SUMMARY | 2022-06-18 10:26 | XMS_ITS | Encounter Summary ---
:1985 Author Organization [facility] Address [address] [place] [address] Care Team Providers Name Role Phone Unavailable Primary Care Provider Unavailable Encounter Details Date Type Department Care Team Description 10/06/2018 Clinical Communication Department of Neurology Rui Godinez, in [facility] kandis Boss, M.P.H. [address] [place] [address] [address], [place] [phone] Social History Tobacco Use Types Packs/Day [...] do you attend temple or Never 2021 mandaen services? Do you belong to any clubs [...] place to sleep or slept in a [facility] (including now)? Sex Assigned at Date Recorded Female 02/02/2019 3:06 PM CDT documented as of this encounter Miscellaneous Notes Telephone Encounter - Sally Wallis L.P.N. - 10/08/2018 10:24 AM ACCOUNT LEADER Patient advised to check with [place] to send neurology records and to fax over the formulary exception form. Patient in agreement with this plan. UNT LEADER Telephone Encounter - Diana Candelario - 10/06/2018 [...] Name of Medication (if relevant): Lamictal pills UNT LEADER documented in this encounter Plan of Treatment Not on filedocumented as of this encounter Visit Diagnoses Not on filedocumented in this encounter
--- OUTSIDE RECORDS SUMMARY | 2022-06-18 10:26 | XMS_ITS | Encounter Summary ---
:1985 Author Organization [facility] Address [address] [place] [address] Care Team Providers Name Role Phone Unavailable Primary Care Provider Unavailable Encounter Details Date Type Department Care Team Description 11/29/2018 Orders Only [facility] Humaira Beltran [address] [place] [address] Social History Tobacco Use [...] or relatives? How often do you attend yarsani or Never 2021 rastafarian services? Do you belong to any clubs or No 11/08/2021 organizations such as yarsani groups, unions, fraternal or athletic groups, or [...]
--- OUTSIDE RECORDS SUMMARY | 2022-06-18 10:26 | XMS_ITS | Encounter Summary ---
:1985 Author Organization [facility] Address [address] [place] [address] Care Team Providers Name Role Phone Unavailable Primary Care Provider Unavailable Encounter Details Date Type Department Care Team Description 02/01/2021 Orders Only [facility] Sa rima Valentin M.D. [address] [place], [place] [phone] (Wo rk) Social History [...] do you attend episcopal or Never 2021 rastafari services? Do you belong to any clubs [...]
--- OUTSIDE RECORDS SUMMARY | 2022-06-18 10:26 | XMS_ITS | Encounter Summary ---
:1985 Author Organization [facility] Address [address] [place] [address] Care Team Providers Name Role Phone Unavailable Primary Care Provider Unavailable Reason for Referral Outpatient (Routine) - Closed Specialty Diagnoses / Procedures Referred By Contact Refer red To Contact Neurology Rui Godinez M.D ., M.P.H. [facility] [address] [place] [address] Referral ID Status Reason Start Date Expiration Date Visits Requ ested Visits Authorized [id number] Closed 02/02/2019 02/02/2020 1 1 Reason for Visit Reason Comments Seizures Follow-up Appointment Request (Routine) - Closed Specialty Diagnoses / Procedures Referred By Contact Refer red To Contact Neurology Referral ID Status Reason Start Date Expiration Date Visits Requ ested Visits Authorized [id number] Closed 01/07/2019 01/07/2020 1 Encounter Details Date Type Department Care Team Description 02/02/2019 Comprehensive Visit Department of Rui Godinez Focal C omplex Partial Epilepsy Not Intractable Without Status Epilepticus (HCC) (Primary Dx); Neurology in Karyn Kaplan, Not R neri For Visit [place], [place] M.P.H. [address] [facility] [address] [place], [place] [phone] Social History Tobacco Use Types Packs/Day [...] do you attend anabaptism or Never 2021 moravian services? Do you belong to any clubs [...] is known to me from visits in [facility] where she was planning to become . [...] from 01/17/2018 was 12 with a range [id number] and lamotrigine serum concentration was 4.8 with a range being 2.5-15 and [facility]. I gave her handout from [facility] on in epilepsy as she contemplating having her Mirena IUD removed and to become . She was on Keppra 1000 mg b.i.d. and lamotrigine 200 mg b.i.d.. At today's visit she remains on 1000 mg of levetiracetam and is on 400 mg b.i.d. of lamotrigine or twice the previous dose. Her lamotrigine serum concentration was checked on January 26 at [facility] in level was 8.4 micro g per [...] Alert and oriented x 4. CRANIAL NERVES: motor vehicles supervisor II-XII intact and symmetric. MOTOR: Full strength [...] be cut back to pre doses. 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
--- OUTSIDE RECORDS SUMMARY | 2022-06-18 10:26 | XMS_ITS | Encounter Summary ---
:1985 Author Organization [facility] Address [address] [place] [address] Care Team Providers Name Role Phone Unavailable Primary Care Provider Unavailable Encounter Details Date Type Department Care Team Description 12/23/2019 Clinical Communication Department of Neurology Rui Godinez, in [facility] kandis Boss, M.P.H. [address] [place] [address] [address], [place] [phone] Social History Tobacco Use Types Packs/Day [...] do you attend buddhist or Never 2021 adventism services? Do you belong to any clubs [...] or slept in a fpc (including now)? Education Answer Date Recorded What is the highest level of school Associate degree: [employer] program 08/25/2019 you have completed or the highest degree you have received? Sex Assigned at Date Recorded Female 02/02/2019 3:06 PM CDT documented as of this encounter Plan of Treatment Not on filedocumented as of this encounter Visit Diagnoses Not on filedocumented in this encounter
--- OUTSIDE RECORDS SUMMARY | 2022-06-18 10:26 | XMS_ITS | Encounter Summary ---
:1985 Author Organization [facility] Address [address] [place] [address] Care Team Providers Name Role Phone Unavailable Primary Care Provider Unavailable Encounter Details Date Type Department Care Team Description 12/24/2019 Clinical Communication Department of Sleep Rui Godinez, Medicine in Karyn Gee, M.P .H. [place] [address] [place] [phone] Social History Tobacco Use Types Packs/Day [...] or relatives? How often do you attend muslim or Never 2021 anabaptism services? Do you belong to any clubs or No 11/08/2021 organizations such as muslim groups, unions, fraternal or athletic groups, or [...] CDT Reason for Communication: Keep entering Lamo [id number] mg And the patient doesn't want this. She wants the generic and then she wants the brand name. Pharmacist would like a call to talk about the situation. Current Can Nursing/Provider leave a detailed message: Did the patient refuse triage through Nurse line? (for symptom based concerns): Action Needed: [facility] Name of Medication (if relevant): Lamo TRIgine documented in this encounter Plan of Treatment Not on filedocumented as of this encounter Visit Diagnoses Not on filedocumented in this encounter
--- OUTSIDE RECORDS SUMMARY | 2022-06-18 10:26 | XMS_ITS | Encounter Summary ---
:1985 Author Organization [facility] Address [address] [place] [address] Care Team Providers Name Role Phone Unavailable Primary Care Provider Unavailable Encounter Details Date Type Department Care Team Description 11/14/2018 Clinical Communication Department of Neurology Rui Godinez, in [facility] kandis Boss, M.P.H. [address] [place] [address] [address], [place] [phone] Social History Tobacco Use Types Packs/Day [...] do you attend yarsani or Never 2021 quaker services? Do you belong to any clubs [...] Dena Mendiola L.P.N. - 11/18/2018 11:02 AM AUTOMATIC NAILING MACHINE FEEDER See next message. MATIC NAILING MACHINE FEEDER Telephone Encounter - Dena Mendiola L.P.N. - 11/17/2018 10:12 AM AUTOMATIC NAILING MACHINE FEEDER Left message to call back. MATIC NAILING MACHINE FEEDER Telephone Encounter - Golden Arreola - 11/14/2018 [...] Needed: Name of Medication (if relevant): Acetazolamide MATIC NAILING MACHINE FEEDER documented in this encounter Plan of Treatment Not on filedocumented as of this encounter Visit Diagnoses Not on filedocumented in this encounter
--- OUTSIDE RECORDS SUMMARY | 2022-06-18 10:26 | XMS_ITS | Encounter Summary ---
:1985 Author Organization [facility] Address [address] [place] [address] Care Team Providers Name Role Phone Unavailable Primary Care Provider Unavailable Encounter Details Date Type Department Care Team Description 12/22/2019 Refill Department of Sleep Medicine in Rui Godinez M.D., [place], [place] M.P.H. [address] [place] [address] [place] [phone] (Wo rk) Social History Tobacco [...] or relatives? How often do you attend quaker or Never 2021 denominational services? Do you belong to any clubs or No 11/08/2021 organizations such as quaker groups, unions, fraternal or athletic groups, or [...]
--- OUTSIDE RECORDS SUMMARY | 2022-06-18 10:26 | XMS_ITS | Encounter Summary ---
:1985 Author Organization [facility] Address [address] [place] [address] Care Team Providers Name Role Phone Unavailable Primary Care Provider Unavailable Reason for Visit Reason Onset Date Comments Rx Prior Authorization 10/22/2018 Lamictal Encounter Details Date Type Department Care Team Description 10/22/2018 Clinical Department of Angelica Wallis Prior Communication Neurology in Sally Elena, Authorization Lindsay Gee (Lamictal) [place] [address] [place] [phone] [phone] Social History Tobacco Use Types Packs/Day Years [...] or relatives? How often do you attend mormonism or Never 2021 sabianist services? Do you belong to any clubs or No 11/08/2021 organizations such as mormonism groups, unions, fraternal or athletic groups, or [...] Sally Wallis L.P.N. - 10/22/2018 4:12 PM STERILE SUPPLY TECHNICIAN Patient states she has faxed the form to Dr. Godinez. She also provided the phone number that Dr. Godinez or a nurse needs to call. , department [employer]. Please advise Form has been completed and faxed to . ILE SUPPLY TECHNICIAN documented in this encounter Plan of Treatment Not on filedocumented as of this encounter Visit Diagnoses Not on filedocumented in this encounter
--- OUTSIDE RECORDS SUMMARY | 2022-06-18 10:26 | XMS_ITS | Encounter Summary ---
:1985 Author Organization [facility] Address [address] [place] [address] Care Team Providers Name Role Phone Unavailable Primary Care Provider Unavailable Encounter Details Date Type Department Care Team Description 10/20/2018 Orders Only [facility] - Isma Hoyos M.D. [address], [facility] [address] [place] [phone] (Wo rk) Social History Tobacco [...] do you attend sabianism or Never 2021 hoahaoism services? Do you [...]
--- OUTSIDE RECORDS SUMMARY | 2022-06-18 10:26 | XMS_ITS | Encounter Summary ---
:1985 Author Organization [facility] Address [address] [place] [address] Care Team Providers Name Role Phone Unavailable Primary Care Provider Unavailable Encounter Details Date Type Department Care Team Description 12/22/2019 Clinical Communication Department of Sleep Rui Godinez, Medicine in Karyn Gee, M.P .H. [place] [address] [place] [phone] Social History Tobacco Use Types Packs/Day [...] do you attend caodaism or Never 2021 taoism services? Do you [...] - 12/25/2019 2:47 PM CDT Spoke with [facility] in [place] regarding patient's prescription for lamotrigine. The newest [...] in regards to her generic script. Stating [facility] has not received it. Patient will be calling [employer], again. Current Can Nursing/Provider leave a detailed message: Action Needed: Please review and advise. Name of Medication (if relevant): Telephone Encounter - Dena Mendiola L.P.N. - 12/23/2019 10:28 AM CDT Patient is requesting the following information: New rx for Lamictal in generic form to be sent to [facility] in [place] The following information was provided : [...] generic of this medication over to the [facility] pharmacy in [place] instead. Please advise. Current Can Nursing/Provider leave a detailed message: Did the patient refuse triage through Nurse line? (for symptom based concerns): Action Needed: Send generic to [facility] in [place] Name of Medication (if relevant): Lamictal (Generic form) documented in this encounter Plan of Treatment Not on filedocumented as of this encounter Visit Diagnoses Not on filedocumented in this encounter
--- OUTSIDE RECORDS SUMMARY | 2022-06-18 10:26 | XMS_ITS | Encounter Summary ---
:1985 Author Organization [facility] Address [address] [place] [address] Care Team Providers Name Role Phone Unavailable Primary Care Provider Unavailable Reason for Visit Reason Comments Med Refill Encounter Details Date Type Department Care Team Description 09/28/2020 Refill Department of Neurology in Rui Godinez M.D., Med Refill [place], [place] M.P.H. [address] [place] [address] [place] [address] [phone] (Wo rk) Social History Tobacco Use Types [...] or relatives? How often do you attend rastafari or Never 2021 rastafari services? Do you belong to any clubs or No 11/08/2021 organizations such as rastafari groups, unions, fraternal or athletic groups, or [...] the highest level of school Associate degree: [employer] program 08/25/2019 you have completed or the highest degree you have received? Sex Assigned at Date Recorded Female 02/02/2019 3:06 PM CDT documented as of this encounter Plan of Treatment Not on filedocumented as of this encounter Visit Diagnoses Not on filedocumented in this encounter
--- OUTSIDE RECORDS SUMMARY | 2022-06-18 10:26 | XMS_ITS | Encounter Summary ---
:1985 Author Organization [facility] Address [address] [place] [address] Care Team Providers Name Role Phone Unavailable Primary Care Provider Unavailable Encounter Details Date Type Department Care Team Description 11/23/2020 Orders Only [facility] Colt Martinez, Pcp [address] [place] [phone] Social History Tobacco Use Types Packs/Day Years [...] or relatives? How often do you attend taoist or Never 2021 christianity services? Do you belong to any clubs or No 11/08/2021 organizations such as taoist groups, unions, fraternal or athletic groups, or [...]
--- OUTSIDE RECORDS SUMMARY | 2022-06-18 10:26 | XMS_ITS | Encounter Summary ---
:1985 Author Organization [facility] Address [address] [place] [address] Care Team Providers Name Role Phone Unavailable Primary Care Provider Unavailable Encounter Details Date Type Department Care Team Description 08/06/2019 Clinical Communication Department of Sleep Rui Godinez, Medicine in Karyn Gee, M.P .H. [place] [address] [place] [phone] Social History Tobacco Use Types Packs/Day [...] or relatives? How often do you attend rastafarian or Never 2021 scientology services? Do you belong to any clubs or No 11/08/2021 organizations such as rastafarian groups, unions, fraternal or athletic groups, or [...]
--- OUTSIDE RECORDS SUMMARY | 2022-06-18 10:26 | XMS_ITS | Encounter Summary ---
:1985 Author Organization [facility] Address [address] [place] [address] Care Team Providers Name Role Phone Unavailable Primary Care Provider Unavailable Encounter Details Date Type Department Care Team Description 12/24/2019 Orders Only [facility] - Trinity Brink [address] [facility] [phone] (W ork) [address] [place] [address] Social History Tobacco Use [...] do you attend catholic or Never 2021 church services? Do you [...] or slept in a correction (including now)? Education Answer Date Recorded What [...]
--- OUTSIDE RECORDS SUMMARY | 2022-06-18 10:26 | XMS_ITS | Encounter Summary ---
:1985 Author Organization [facility] Address [address] [place] [address] Care Team Providers Name Role Phone Unavailable Primary Care Provider Unavailable Reason for Visit Reason Comments Med Refill Encounter Details Date Type Department Care Team Description 01/30/2021 Refill Department of Neurology in Rui Godinez M.D., Med Refill [place], [place] M.P.H. [address] [place] [address] [place] [address] [phone] (Wo rk) Social History Tobacco Use Types [...] or relatives? How often do you attend advent or Never 2021 methodist services? Do you belong to any clubs or No 11/08/2021 organizations such as advent groups, unions, fraternal or athletic groups, or [...]
--- OUTSIDE RECORDS SUMMARY | 2022-06-18 10:26 | XMS_ITS | Encounter Summary ---
:1985 Author Organization [facility] Address [address] [place] [address] Care Team Providers Name Role Phone Unavailable Primary Care Provider Unavailable Encounter Details Date Type Department Care Team Description 10/17/2018 Orders Only Department of Neurology in Rui Godinez M.D., [place], [place] M.P.H. [address] [place], [place] [address] [address] [place] [address] [place], [place] [phone] (Wo rk) Social History Tobacco Use [...] do you attend judaism or Never 2021 zoroastrianism services? Do you [...]
--- OUTSIDE RECORDS SUMMARY | 2022-06-18 10:26 | XMS_ITS | Encounter Summary ---
:1985 Author Organization [facility] Address [address] [place] [address] Care Team Providers Name Role Phone Unavailable Primary Care Provider Unavailable Encounter Details Date Type Department Care Team Description 10/20/2018 Clinical Communication Department of Neurology Rui Godinez, in [facility] kandis Boss, M.P.H. [address] [place] [address] [address] [address] Social History Tobacco Use Types Packs/Day [...] do you attend sabianism or Never 2021 alevism services? Do you belong to any clubs [...] Sally Wallis L.P.N. - 10/21/2018 11:22 AM PRECISION LENS GRINDER Contacted [facility]. Medication is correct but the issue is that they need a prior auth done on the weaver. It cost $2000.00 for a 30 day supply. ISION LENS GRINDER Telephone Encounter - Rui Godinez M.D., M.P.H. - 10/21/2018 9:41 AM PRECISION LENS GRINDER It says lamictal with DAW1 ISION LENS GRINDER Telephone Encounter - Bianka Chakraborty - 10/20/2018 [...] Medication (if relevant): Lamictal 200 mg tablet ISION LENS GRINDER documented in this encounter Plan of Treatment Not on filedocumented as of this encounter Visit Diagnoses Not on filedocumented in this encounter
--- OUTSIDE RECORDS SUMMARY | 2022-06-18 10:26 | XMS_ITS | Encounter Summary ---
:1985 Author Organization [facility] Address [address] [place] [address] Care Team Providers Name Role Phone Unavailable Primary Care Provider Unavailable Reason for Visit Reason Onset Date Comments Med Refill 11/26/2019 Encounter Details Date Type Department Care Team Description 11/26/2019 Refill Department of Sleep Medicine in Rui Godinez M.D., Med Refill [place], [place] M.P.H. [address] [place] [address] [place] [address] (Wo rk) Social History Tobacco [...] or relatives? How often do you attend religious or Never 2021 cheondoism services? Do you belong to any clubs or No 11/08/2021 organizations such as religious groups, unions, fraternal or athletic groups, or [...] the highest level of school Associate degree: [employer] program 08/25/2019 you have completed or the highest degree you have received? Sex Assigned at Date Recorded Female 02/02/2019 3:06 PM CDT documented as of this encounter Miscellaneous Notes Telephone Encounter - Sally Wallis L.P.N. - 11/26/2019 11:22 AM HVAC TECH Contacted patient. Confirmed with patient Directions for Lamictal. Stated that she is taking Lamictal 200 mg one tablet two times a day. TECH Telephone Encounter - Liz Crockett - 11/26/2019 8:54 AM CST Images from the original note were not included. Name of Medication: Lamotrigine ?? Primary Provider: Rui Godinez M.D. ?? Strength: 200 mg ?? Frequency: Take 1 tablet twice a day ?? Pharmacy (include location): [facility] [place] [phone] ?? Documentation TECH documented in this encounter Plan of Treatment Not on filedocumented as of this encounter Visit Diagnoses Not on filedocumented in this encounter
--- OUTSIDE RECORDS SUMMARY | 2022-06-18 10:26 | XMS_ITS | Encounter Summary ---
:1985 Author Organization [facility] Address [address] [place] [address] Care Team Providers Name Role Phone Unavailable Primary Care Provider Unavailable Reason for Visit Reason Comments Med Refill Encounter Details Date Type Department Care Team Description 02/18/2019 Refill Department of Josi Quach A PRN, Med Refill Medicine, [facility], in [place] [address] [place] [address] [place] [address] [phone] Social History Tobacco Use Types Packs/Day Years [...] do you attend amish or Never 2021 mosque services? Do you belong to any clubs [...] was prescribed by Dr Rui Godinez in [facility]. Telephone Encounter - Sarah Hurd, R.M.AMichael [...] 2 tablets by mouth twice daily Pharmacy: [place], [place] Pharmacy Comment: now 8 tabs 10 mg per patient documented in this encounter Plan of Treatment Not on filedocumented as of this encounter Visit Diagnoses Not on filedocumented in this encounter
--- OUTSIDE RECORDS SUMMARY | 2022-06-18 10:26 | XMS_ITS | Encounter Summary ---
:1985 Author Organization [facility] Address [address] [place] [address] Care Team Providers Name Role Phone Unavailable Primary Care Provider Unavailable Reason for Visit Reason Onset Date Comments Med Refill 11/26/2019 Encounter Details Date Type Department Care Team Description 11/26/2019 Clinical Communication Department of Sleep Rui Godinez, Med Refill Medicine in Karyn Gee, M.P .H. [place] [address] [place] [phone] Social History Tobacco Use Types Packs/Day Years [...] do you attend catholic or Never 2021 buddhist services? Do you belong to any clubs [...] or slept in a mcc (including now)? Education Answer Date Recorded What is the highest level of school Associate degree: [employer] program 08/25/2019 you have completed or the highest degree you have received? Sex Assigned at Date Recorded Female 02/02/2019 3:06 PM CDT documented as of this encounter Miscellaneous Notes Telephone Encounter - Diana Candelario - 11/26/2019 8:16 AM CST Name of Medication: Lamotrigine Primary Provider: Rui Godinez M.D. Strength: 200 mg Frequency: Take 1 tablet twice a day Pharmacy (include location): [facility] [place] [phone] CHER STANDARD MACHINE documented in this encounter Plan of Treatment Not on filedocumented as of this encounter Visit Diagnoses Not on filedocumented in this encounter
--- OUTSIDE RECORDS SUMMARY | 2022-06-18 10:26 | XMS_ITS | Encounter Summary ---
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 [address], [place] [address] Referral ID Status Reason Start Date Expiration Date Visits Requ ested Visits Authorized [id number] Closed 10/10/2020 10/10/2021 1 1 OGAME TESTER Reason for Visit Outpatient (Routine) - Closed Specialty Diagnoses / Procedures Referred By Contact Refer red To Contact Neurology Rui Godinez M.D ., M.P.H. [facility] [address] [place] [address] Referral ID Status Reason Start Date Expiration Date Visits Requ ested Visits Authorized [id number] Closed 08/25/2019 08/24/2020 1 1 Encounter Details Date Type Department Care Team Description 10/10/2020 Telemedicine Department of Rui Godinez, Focal Comp tripp Partial Neurology in Karyn Bose, M.P .H. Epilepsy Not [place] [address] [place] [address] Intractable Without [address] [place], [place] [address] (HCC) (Primary Dx) [phone] Social History Tobacco [...] or relatives? How often do you attend gnosticism or Never 2021 islam services? Do you belong to any clubs or No 11/08/2021 organizations such as gnosticism groups, unions, fraternal or athletic groups, or [...] Progress Notes Rui Godinez M.D., M.P.H. - 10/10/2020 9:15 AM CST SUBJECTIVE Consult conducted via real-time audio/video technology by Rui Godinez M.D., M.P.H. from [facility] to the patient in their home. Virtual visit between Dr. Godinez and Trinity. Trinity is a 35 y.o. female who agreed to a virtual visit. HISTORY OF PRESENT ILLNESS This patient is one whom I have seen in [facility] previously in addition to two prior visit here at [facility]. She remained seizure-free and side effect free previously she has delivered a child and a had been on folic acid 1 mg prescription but has now acquired [id number]-vha-lspokez folic acid she is taking that. She [...] lamotrigine as CIERA. I her child's night [id number] doing well. She has no concerns. The [...] preparation, and the actual timeduring the video. OGAME TESTER documented in this encounter Plan of Treatment [...]
[2022-06-20 01:52] LABS: Keppra (Levetiracetam) 29 ug/mL (10-40)
== END 2022-06-18 10:21 | disposition home or self-care (01) ==
PROVIDERS: PCP Family Medicine; Visit Provider Obstetrics & Gynecology
DX: O26.872 Cervical shortening, second trimester (principal); G40.909 Epilepsy, unspecified, not intractable, without status epilepticus; Z3A.14 14 weeks gestation of pregnancy
CPT/HCPCS: 80175; 80177

== ENCOUNTER 2022-07-05 13:53 | Outpatient (CLI) | payer BC, SELFPAY ==
--- NOTE | 2022-07-05 14:00 | CRLHL7_ITS ---
For Patients: As a result of the Century Cures Act, medical imaging exams and procedure reports are released immediately into your electronic medical record. You may view this report before your referring provider. If you have questions, please contact your health care provider. INDICATION: Follow up cervical length COMPARISON: 06/18/2022 TECHNIQUE: Real-time sevilla-scale imaging of the pelvis was performed. FINDINGS: Transvaginal sonography of the pelvis performed which shows the cervix to be closed and measures 2.9 cm. No funneling. heart rate 137 beats per minute. Amniotic fluid volume normal with single deepest pocket 2.8 cm. IMPRESSION: Transvaginal measurement of the closed cervix is 2.9 cm. Dictated by Chapo Vickers MD @ 07/06/2022 11:03:59 AM (Electronically Signed)
--- OUTSIDE RECORDS SUMMARY | 2022-07-05 14:00 | XMS_ITS | Encounter Summary ---
:1985 Author Organization [facility] Address [address] [place] [address] Care Team Providers Name Role Phone [facility] Primary Care Provider [phone] Reason for Visit Reason Onset Date Comments social work referral 10/27/2021 Encounter Details Date Type Department Care Team Description 10/27/2021 Telephone UR CASE MANAGEMENT Jennifer social work referral [phone] Mei Sanchez [facility] Social History Tobacco Use Types Packs/Day Years Used Date Never Smoker Alcohol Use Standard Drinks/Week Comments Yes 0 (1 standard drink = 0.6 oz pure alcoho l) occ Sex Assigned at Date Recorded Not on file COVID-19 Exposure Response Date Recorded In the last month, have you been in contact with No / Unsure 10/26/2021 1:52 PM STONE PROCESSING MACHINE OPERATOR someone who was confirmed or suspected to have Coronavirus / COVID-19? documented as of this encounter Miscellaneous Notes Telephone Encounter - Mei Rodriguez LICSW - 10/27/2021 3:33 PM STONE PROCESSING MACHINE OPERATOR Received return phone call from patient. Her [...] madeone call to the [employer] [place] to learn about their fees. The family does express some concern about finances so I did share information about [facility] [facility] the [facility]. * Family knows this baby is a boy and they have chosen the name ???Avtar?? * Lilia have a 2.5 year-old daughter named Denita. They have some interest in having her come to the hospital for a visit to meet Avtar after delivery. This potential visit request has beenescalated to Birthplace manager balance, Ce Gonzáles with request for compassionate exception [...] made an initial referral Cleo Villagomez- the reimbursement coordinator ([phone]). Nursing staff to please contact [facility] again when family is ready for photos. * Trinity and Amrti shared they are not voodoo but thought a application dba visit for spiritual support and potential ritual would be very helpful and comforting. They asked that a application dba please come see them. The on-call socia work team has been notified of this family's planned induction of labor and will follow-up. The on-call social work specialist can be reached via pager [phone]. E PROCESSING MACHINE OPERATOR documented in this encounter Plan of Treatment Not on filedocumented as of this encounter Visit Diagnoses Not on filedocumented in this encounter Care Teams Check Writer Salesperson Relationship Specialty Start Date End Date [facility] Medical PCP - General 09/05/17 [address] [place] [address] documented as of this encounter
--- OUTSIDE RECORDS SUMMARY | 2022-07-05 14:00 | XMS_ITS | Encounter Summary ---
:1985 Author Organization [facility] Address [address] [place] [address]. [place] [address] Care Team Providers Name Role Phone [facility] Primary Care Provider [phone] Encounter Details Date Type Department Care Team Description 10/27/2021 Telephone [facility] Karina [address] [place] [address] [place] [address] [address] [place] [address] [place] [address] [phone] Social History Tobacco Use Types Packs/Day Years Used Date Never Smoker Alcohol Use Standard Drinks/Week Comments Yes 0 (1 standard drink = 0.6 oz pure alcoho l) occ Sex Assigned at Date Recorded Not on file COVID-19 Exposure Response Date Recorded In the last month, have you been in contact with No / Unsure 10/28/2021 8:34 AM CONGRESSIONAL AIDE someone who was confirmed or suspected to [...] things worked out today. 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 She is scheduled for induction termination tomorrow 10/28. Can you call the hospital renal social worker who works on labor and delivery to make sure that they contact her today? (if you call L&D they have the contact info). The patient wants tomake cremation arrangements for remains today before delivery if possible. I called the nuclear station operator renal social worker at the end of the day yesterday and she said she'd pass it on but I want to make sureto close the loop and confirm that the social workers at the hospital know about her. Thanks, Gia Martínez MD RESSIONAL AIDE documented in this encounter Plan of Treatment Not on filedocumented as of this encounter Visit Diagnoses Not on filedocumented in this encounter Care Teams Collections Attorney Relationship Specialty Start Date End Date [facility] Medical PCP - General 09/05/17 [address] [place] [address] documented as of this encounter
--- OUTSIDE RECORDS SUMMARY | 2022-07-05 14:00 | XMS_ITS | Encounter Summary ---
:1985 Author Organization [facility] Address [address] [place] [address]. [place] [address] Care Team Providers Name Role Phone [facility] Primary Care Provider [phone] Encounter Details Date Type Department Care Team [...] with No / Unsure 10/28/2021 8:34 AM MARKETING 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 documented as of this encounter Plan of Treatment Not on filedocumented as of this encounter Visit Diagnoses Not on filedocumented in this encounter Care Teams Tour Production Supervisor Relationship Specialty Start Date End Date [facility] PCP - General 09/05/17 [address] [place] [address] documented as of this encounter
--- OUTSIDE RECORDS SUMMARY | 2022-07-05 14:00 | XMS_ITS | Encounter Summary ---
:1985 Author Organization [facility] Address [address] [place] [address]. [place] [address] Care Team Providers Name Role Phone [facility] Primary Care Provider [phone] Reason for Visit Reason Comments Ultrasound L2 - abnormal US on outside clinic Encounter Details Date Type Department Care Team Description 10/26/2021 PRE VISIT [facility] Ariadna Cavazos, Ultraso und (L2 - Maternal Medicine RN abno rmal US on outside Center [facility]) [address] [place], [place] [address] Social History Tobacco Use Types Packs/Day Years Used Date Never Smoker Alcohol Use Standard Drinks/Week Comments Yes 0 (1 standard drink = 0.6 oz pure alcoho l) occ Sex Assigned at Date Recorded Not on file documented as of this encounter Plan of Treatment Not on filedocumented as of this encounter Visit Diagnoses Not on filedocumented in this encounter Care Teams Sewer Cleaner Relationship Specialty Start Date End Date [facility] PCP - General 09/05/17 [address] [address] [place], [place] [id number] documented as of this encounter
--- OUTSIDE RECORDS SUMMARY | 2022-07-05 14:00 | XMS_ITS | Encounter Summary ---
:1985 Author Organization [facility] Address [address] [place] [address] Care Team Providers Name Role Phone [facility] Primary Care Provider [phone] Gia Martínez MD Unavailable [phone] Reason for Visit Reason Onset Date Comments Social Work Services 11/06/2021 Encounter Details Date Type Department Care Team Description 11/06/2021 Telephone UR CASE MANAGEMENT Jennifer Social Work Services [phone] Mei Sanchez [facility] Social History Tobacco Use Types [...] with No / Unsure 10/28/2021 8:34 AM TAG MAKER someone who was confirmed or suspected to have Coronavirus / COVID-19? documented as of this encounter Miscellaneous Notes Telephone Encounter - Mei Rodriguez, CAKE BATTER MIXER - 11/06/2021 9:21 AM TAG MAKER Received email from hospital security department with notification that fetus' body is still in the morgue. Security contacted [employer] [place] and they report they have not been able to reach patient to make the cremation arrangements and, therefore, they have not come to the hospital for removal of the body. Phone call to patient this morning. No answer. Message left with request that Trinity call me backas soon as possible. MAKER documented in this encounter Plan of Treatment Not on filedocumented as of this encounter Visit Diagnoses Not on filedocumented in this encounter Care Teams Specialty Department Supervisor Relationship Specialty Start Date End Date [facility] PCP - General 09/05/17 [address] [address] [place], [place] [phone] Gia Martínez MD Assigned OBGYN Provider 10/29/[address] [place] [address] documented as of this encounter
--- OUTSIDE RECORDS SUMMARY | 2022-07-05 14:00 | XMS_ITS | Encounter Summary ---
:1985 Author Organization [place] Address [address] [place] [address]. 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 operator Diagnoses Encounter for induction of labor Maternity elizabeth: 03/07/22 IOL Encounter for induction of labor Ur 4cob [address] [place] [address]-0 450 Phone: Referral ID Status Reason Start Date Expiration Date Visits Requ ested Visits Authorized [id number] 1 1 Encounter Details Date Type Department Care Team Description 10/28/2021 - Hospital Encounter [facility] Sa rima Martínez MD [address] [place], [place] [id number] 10/29/2021 [facility] Birthplace Marnie Tafoya MD [address] [place], [place] [address] [address] [place] [phone] Social History Tobacco Use Types Packs/Day Years Used Date Never Smoker Smokeless Tobacco: Never Used Alcohol Use Standard Drinks/Week Comments Not Currently 0 (1 standard drink = 0.6 oz pure alcoho l) occ Sex Assigned at Date Recorded Not on file COVID-19 Exposure Response Date Recorded In the last month, have you been in contact with No / Unsure 10/28/2021 8:34 AM CELLOPHANE WORKER someone who was confirmed or suspected to have Coronavirus / COVID-19? documented as of this encounter Last Filed Vital Signs Vital Sign Reading Time Taken Comments Blood Pressure 107/66 10/29/2021 11:27 AM CELLOPHANE WORKER Pulse - - Temperature 37 ??C (98.6 ??F) 10/29/2021 6:23 AM CELLOPHANE WORKER Respiratory Rate 99 10/29/2021 8:38 AM CELLOPHANE WORKER Oxygen Saturation 100% 10/29/2021 12:01 PM CELLOPHANE WORKER Inhaled Oxygen Concentration - - Weight 79.4 kg (175 lb) 10/28/2021 9:00 AM CELLOPHANE WORKER Height 165.1 cm (5' 5) 10/28/2021 9:00 AM CELLOPHANE WORKER Body Mass Index 29.12 10/28/2021 9:00 AM CELLOPHANE WORKER documented in this encounter Discharge Summaries Lin Lemon MD - 10/29/2021 12:10 PM CST [facility] Discharge Summary Trinity Lozano Age: [age] [...] 2 times daily Refills: 0 Consultations: Anesthesia Carry Out Clerk Social work Brief Admission History Ms. Trinity [...] To Knowconsent on 10/26/21 at 1535 with nh. She received mifepristone 200mg PO and misoprostol 400mcg vaginally x2 doses. She received IV diluadid, IV fentanyl and an epidural for pain control. [facility] 103F which persisted [...] to see where placenta was. Placenta was shelter through cervix at this time so it [...] Lemon MD PGY3 Obstetrics & Gynecology 10/29/21 OPHANE WORKER Associated attestation - Marnie Tafoya MD - 10/29/2021 3:28 PM CELLOPHANE WORKER Physician Attestation IMarnie, saw and evaluated this [...] 10/29/2021 2:07 PM CST Gia Martínez MD [facility] WATERMELON INSPECTOR Professional Building [address] [place] [id number] OPHANE WORKER AttachmentsThe following attachments cannot be sent through Care Everywhere. Taking Care of Yourself after Delivery: For Women Who Have Had a Loss or (Turkish)documented in this encounter Medications at Time of [...] Lemon MD PGY3 Obstetrics & Gynecology 10/29/21 OPHANE WORKER Cornelio Strickland - 10/29/2021 10:51 AM CST [facility] Unit: Labor and Delivery Referral Source: ELIZABETH page Illness Narrative: Trinity had an induced labor, son Avtar was born but did not survive long outsidethe womb. Distress: Grief at the loss of their child. Coping: Parents of Avtar requested a [place], Naming and Commendation service for their son Avtar.. Plan: On-call visit, mom will be discharging soon. No plan to follow. Cornelio Strickland Scanning Manager Pager number: [phone] * [facility] remains available 29/04 for emergent requests/referrals, either by having the switchboard page the on-call tester food products or by entering an ELIZABETH/STAT consult in [facility] (this will also page the on-call tester food products).* OPHANE WORKER Bianka Hutson, SOHEILA - 10/29/2021 8:41 AM [...] progress in labor. Dr Martínez updated. Anastasia Mejai MD Obstetrics & Gynecology PGY-3 1:58 AM 10/29/2021 OPHANE WORKER Anastasia Mejia MD - 10/28/2021 10:17 PM CST Cervix 2/50/-1, velez placed w/ 70 ccs without difficulty. Patient tolerated intervention well. Continue pitocin per protocol. Comfortable with epidural in place. Dr. Mauricio drew. Anastasia Mejia MD Obstetrics & Gynecology PGY-3 10:18 PM 10/28/2021 OPHANE WORKER Anastasia Mejia MD - 10/28/2021 8:52 PM [...] Andrews MD - 10/28/2021 7:26 PM CST [facility] DELIVERY PROGRESS NOTE: October 28, [...] Antibody Screen Negative Negative SPECIMEN EXPIRATION DATE [id number] ASSESSMENT / PLAN: 36 year old at [...] and resources with patient. Gia Martínez MD OPHANE WORKER Gia Martínez MD - 10/28/2021 6:25 PM [...] Antibody Screen Negative Negative SPECIMEN EXPIRATION DATE [id number] ASSESSMENT / PLAN: 36 year old at [...] or autopsy. Plan cremation. Gia Martínez MD OPHANE WORKER Madhuri Chaves, CCLS - 10/28/2021 3:48 PM CST 10/28/21 1533 Child Life Location NICU (Labor and delivery) Intervention Family Support;End of Life Care Family Support Comment Pt, Trinity, present with , Amrit. Pt and here for inductionof labor of their son, vAtar, with lethal anomalies. Parents requested support for [...] at bedside in room for Carolina's scheduledvisit. OPHANE WORKER Bianka Hutson RN - 10/28/2021 11:41 AM CST Messsage left for Now I lay Me Down to Sleep that the patient would like pictures of their baby after it its born OPHANE WORKER documented in this encounter H&P Notes Gia Martínez MD - 10/28/2021 12:33 PM CST [facility] OB History and Physical Trinity Lozano [...] Past Surgical History: Procedure Laterality Date ??? 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 ? [...] desires cremation, s/p SW consult Epilepsy - INSURANCE INVESTIGATOR lamictal, keppra, and acetazolamide The patient was [...] Service (when I saw the patient): 10/28/21 OPHANE WORKER documented in this encounter Consult Notes Poornima Elizabeth - 10/28/2021 2:25 PM CSTAssociated Order(s): SPIRITUAL HEALTH SERVICES IP CONSULT SPIRITUAL HEALTH SERVICES SPIRITUAL ASSESSMENT Progress Note [facility] ([facility] 4COB ON-CALL VISIT REFERRAL SOURCE:Consult placed for pt asking for spiritual/emotional support: Induction of labor, fetus not compatible with life. Phone conversation with pt SOHEILA Carlton; will share information with overnight electrical transmission engineer and tomorrow's daytime tester food products regarding follow up care. Baby's Name: Avtar Ryan Father's name: Amrit. Mother is asking for a blessing/prayer after baby is born. RN did not believe they wanted baptist and will clarify if this is the request. Per RN, mom stated something connected with our Evangelical background but does not have to be too formal. Poornima Elizabeth MDiv Associate Carry Out Clerk Pager [phone] Office [phone] [facility] remains available 29/04 for emergent requests/referrals, either by having the switchboard page the on-call tester food products or by entering an ELIZABETH/STAT consult in [facility] (this will also page the on-call tester food products). Routine [facility] consults receive an initial response within 24 hours. OPHANE WORKER documented in this encounter Miscellaneous Notes Plan [...] Encouraged to call if anything comes up. OPHANE WORKER Plan of Care - Bianka Hutson RN [...] [facility] if needed OPHANE WORKER L&D Delivery Note - Gia Martínez MD - 10/29/2021 8:58 AM CELLOPHANE WORKER OB Vaginal Delivery Note Trinity Lozano Age: [age] year old Date of : 1985 GA: 21w4d GP: Labor Complications: None EBL: mL Delivery QBL: Delivery Type: Vaginal, Spontaneous ROM to Delivery Time: (Delivered) Hours: 1 Minutes: 45 Mallard Weight: 1 Minute 5 Minute 10 Minute Totals: 0 0 0 Delivery Details: Vaginal Delivery Summary 21w4d Stage 1: Trinity Lozano is a 36 year old who presented on 10/28/2021 at 21w3d for termination induction for multiple anomalies concerning for Trisomy 18. She completed a Women's Right To Knowconsent on 10/26/21 at 1535 with nh. She received mifepristone 200mg PO and misoprostol [...] to see where placenta was. Placenta was shelter through cervix at this time so it [...] baby. Gia Martínez MD Janna Lozano-Trinity FD [[id number]] Rupture date/time: 10/29/21 0602 Rupture type: Spontaneous [...] collection?: No Delivery (Maternal) (Provider to Complete) ([id number]) Episiotomy: None Perineal lacerations: None Genital tract inspection done: Pos Blood Loss Mother: Trinity Lozano #[id number] Start of Mother's Information Delivery Blood Loss 10/28/21 1947 - 10/29/21 0909 None End of Mother's Information Mother: Trinity Lozano #[id number] Delivery - Provider to Complete ([id number]) Delivering clinician: Gia Martínez MD Attempted Delivery Types (Choose all that apply): Spontaneous Vaginal Delivery Delivery Type (Choose the 1 that will go to the History): Vaginal, Spontaneous Placenta Removal: Spontaneous Comments: small but appears intact, 2vc Disposition: Pathology Presentation and Position Presentation: Vertex Gia Martínez MD OPHANE WORKER Plan of Care - Trinity Burton RN [...] update provider with any questions or concerns. OPHANE WORKER Provider Notification - Trinity Burton RN - 10/29/2021 3:15 AM CELLOPHANE WORKER 10/29/21 0154 Provider Notification Provider Name/Title Dr. Mejia Method of Notification At Bedside Request Evaluate in Person Notification Reason Labor Status;SVE SVE and provider unable to evaluate cervix due to velez balloon being in place. Provider gently tugged on velez balloon and still in place. Will continue to monitor and continue with plan of care. OPHANE WORKER Plan of Care - Anabel Busby RN [...] their baby had passed. Patient planning for tester food products to visit after delivery and requesting baptist. Will continue with current plan of care. OPHANE WORKER Provider Notification - Anabel Busby RN - [...] Tre parrish applied. WIll continue to monitor. OPHANE WORKER Plan of Care - Bianka Hutson RN - 10/28/2021 3:54 PM CST Patient is here for Induction for trisomy 18. She and her spouse are coping well. They desire to hold the baby boy and to have mementos. They would like the [place] after the baby is born to do a prayer and blessing. The childcare center director gave them lots of resources to help with talking to their daughter bout knowing she had a baby brother who passed as a baby as she gets older OPHANE WORKER documented in this encounter Plan of Treatment Not on filedocumented as of this encounter Procedures Procedure Name Priority Date/Time Associated Comments Diagnosis PLACENTA PATH ORDER Routine 10/29/2021 12:49 Resu lts for this AND INDICATIONS PM CELLOPHANE WORKER procedure ar e in the results section. CBC WITH PLATELETS Routine 10/28/2021 9:21 PM Res ults for this CELLOPHANE WORKER procedure are i n the results section. TYPE AND SCREEN, Routine 10/28/2021 10:23 Results for this ADULT AM CELLOPHANE WORKER procedure are i n the results section. ABO/RH TYPE AND Routine 10/28/2021 10:23 Results for this SCREEN AM CELLOPHANE WORKER procedure are i n the results section. CBC WITH PLATELETS Routine 10/28/2021 10:23 Resul ts for this AM CELLOPHANE WORKER procedure are i n the results section. COVID-19 VIRUS STAT 10/28/2021 10:05 Results f or this (CORONAVIRUS) BY PCR AM CELLOPHANE WORKER procedu re are in the results section. [...] path order and indications (10/29/2021 12:49 PM CELLOPHANE WORKER) Component Value Ref Test Analysis Performed At [facility] gist Range Method Time Signature Case Report Peds Surgical Pathology Repo rt ?Case: [id number] ? 03/11/2022 [facility]U Authorizing Provider: ??Stew art, Lin Tran MD ?Collected: ? 10/29/2021 12:49 PM ? 9:43 PM LABORATOR Y Ordering Location: ? [facility] ?Received: ?10/30/2021 11:00 AM ? CDT ? [...] LABORATORY this testing was CDT completed at [facility] Case Images 03/11/2022 UU 9:43 PM LABORATORY CDT Specimen Anatomical Collection Method Collection Time Receive d Time (Source) Location / / Volume Laterality Placenta PLACENTAL Non-blood 10/29/2021 12:49 10/30/2021 STRUCTURE / Collection / PM CELLOPHANE WORKER 11:00 AM CELLOPHANE WORKER Unknown Unknown Lin Lemon MD LAB - JENI LUGO Performing Organization Address City/State/ZIP Code Phon [place] [address] [phone] Lab [address] [facility], Room 3580 UR LABORATORY [place], [place] [phone] [facility] Lab [id number], Room M309 (ABNORMAL) CBC with platelets (10/28/2021 9:21 PM CELLOPHANE WORKER) [facility] Method Time Signature WBC Count 9.6 4.0 - 11.0 10/28/2021 UR LABORATORY 10e3/uL 9:28 PM CELLOPHANE WORKER RBC Count 3.62 (L) 3.80 - 10/28/2021 UR LABORATORY 5.20 9:28 PM CELLOPHANE WORKER 10e6/uL Hemoglobin 11.1 (L) 11.7 - 10/28/2021 UR LABORATORY 15.7 g/dL 9:28 PM CELLOPHANE WORKER Hematocrit 32.7 (L) 35.0 - 10/28/2021 UR LABORATORY 47.0 % 9:28 PM CELLOPHANE WORKER MCV 90 78 - 100 10/28/2021 UR LABORATORY fL 9:28 PM CELLOPHANE WORKER MCH 30.7 26.5 - 10/28/2021 UR LABORATORY 33.0 pg 9:28 PM CELLOPHANE WORKER MCHC 33.9 31.5 - 10/28/2021 UR LABORATORY 36.5 g/dL 9:28 PM CELLOPHANE WORKER RDW 12.7 10.0 - 10/28/2021 UR LABORATORY 15.0 % 9:28 PM CELLOPHANE WORKER Platelet Count 229 150 - 450 10/28/2021 UR LABORATORY 10e3/uL 9:28 PM CELLOPHANE WORKER Specimen Anatomical Collection Method / Collection Time Recei chelsey Time (Source) Location / Volume Laterality Blood STRUCTURE OF LEFT Venipuncture / 10/28/2021 9:21 10/28 9:26 HAND / Unknown Unknown PM CELLOPHANE WORKER PM CELLOPHANE WORKER Anastasia Mejia MD LAB - BLOOD ORDERABLES Performing Organization Address City/State/ZIP Code Phon e Number UR LABORATORY [facility] [place] [address] Care Lab [address] [place] [address], Room M309 Adult Type and Screen (10/28/2021 10:23 AM CELLOPHANE WORKER) Patholo gist Method Time Signature ABO/RH(D) O POS 10/28/2021 UR BLOOD 10:00 AM BANK CELLOPHANE WORKER Antibody Negative Negative 10/28/2021 UR BLOOD Screen 10:00 AM BANK CELLOPHANE WORKER SPECIMEN [id number] 10/28/2021 UR BLOOD EXPIRATION 10:00 AM BANK DATE CELLOPHANE WORKER Specimen Anatomical Collection Method / Collection Time Recei chelsey Time (Source) Location / Volume Laterality Blood STRUCTURE OF LEFT Venipuncture / 10/28/2021 10:23 10/08 HAND / Unknown Unknown AM CELLOPHANE WORKER 10:46 AM CELLOPHANE WORKER Anastasia Mejia MD LAB - BLOOD BANK TEST ORDER Performing Organization Address City/State/ZIP Code Phon e Number UR BLOOD BANK [facility] [place] [address] Components Lab [address] [place] [address], Room M301 CBC with platelets (10/28/2021 10:23 AM CELLOPHANE WORKER) P athologist Signature WBC Count 8.4 4.0 - 11.0 10/28/2021 UR CHILDREN 10e3/uL 10:53 AM CELLOPHANE WORKER LABORATORY RBC Count 3.94 3.80 - 10/28/2021 UR CHILDREN 5.20 10:53 AM CELLOPHANE WORKER LABORATORY 10e6/uL Hemoglobin 12.0 11.7 - 10/28/2021 UR CHILDREN 15.7 g/dL 10:53 AM CELLOPHANE WORKER LABORATORY Hematocrit 36.7 35.0 - 10/28/2021 UR CHILDREN 47.0 % 10:53 AM CELLOPHANE WORKER LABORATORY MCV 93 78 - 100 10/28/2021 UR CHILDREN fL 10:53 AM CELLOPHANE WORKER LABORATORY MCH 30.5 26.5 - 10/28/2021 UR CHILDREN 33.0 pg 10:53 AM CELLOPHANE WORKER LABORATORY MCHC 32.7 31.5 - 10/28/2021 UR CHILDREN 36.5 g/dL 10:53 AM CELLOPHANE WORKER LABORATORY RDW 12.9 10.0 - 10/28/2021 UR CHILDREN 15.0 % 10:53 AM CELLOPHANE WORKER LABORATORY Platelet Count 247 150 - 450 10/28/2021 UR CHILDREN 10e3/uL 10:53 AM CELLOPHANE WORKER LABORATORY Specimen Anatomical Collection Method / Collection Time Recei chelsey Time (Source) Location / Volume Laterality Blood STRUCTURE OF LEFT Venipuncture / 10/28/2021 10:23 10/08 HAND / Unknown Unknown AM CELLOPHANE WORKER 10:46 AM CELLOPHANE WORKER Anastasia Mejia MD LAB - BLOOD ORDERABLES Performing Organization Address City/State/ZIP Code Phon e Number UR [facility] LAB[facility] [place] [address] [place] [address] [facility] [address] [place] [address] [phone] Asymptomatic COVID-19 Virus (Coronavirus) by PCR Nose (10/28/2021 10:05 AM CELLOPHANE WORKER) Analysis Performed At Patho logist Time Signature SARS CoV2 PCR Negative Negative 10/28/2021 UR LABORATORY 10:40 AM CELLOPHANE WORKER Comment: NEGATIVE: SARS-CoV-2 (COVID-19) RNA not detected, presumed negative. Specimen Anatomical Collection Method Collection Time Receive d Time (Source) Location / / Volume Laterality Swab NASAL STRUCTURE / Non-blood 10/28/2021 10:05 01/22/ 2022 Unknown Collection / AM CELLOPHANE WORKER 10:12 AM CELLOPHANE WORKER Unknown Narrative UR LABORATORY - 10/28/2021 10:40 AM CELLOPHANE WORKER Testing was performed using the slim?? SARS-CoV-2 [...] exposure or clinical presentation sugges ts COVID-19. ??[facility] are certified under the Clinical Laborat ory Improvement Amendments of 1988 (CLIA-88) as qualified to perform moderate and/or high complexity laboratory testing. Anastasia Mejia MD LAB - MICRO GENERAL ORDERABL ES Performing Organization Address City/State/ZIP Code Phon [place] [address] Care Lab [facility], Room M309 Rubella Antibody IgG (External Result) (07/25/2021 12:00 PM CDT) [facility] Method Time Signature Rubella Nonreactive Nonreactive [facility] Antibody [facility] (External) Comment: 10 Specimen (Source) Anatomical Collection Method Collection Time Re ceived Time Location / / Volume Laterality 07/25/2021 12:00 PM CDT [facility] LAB - HIM EXTERNAL RESULT Performing Organization Address City/State/ZIP Code Phon e Number [facility] [address] [place] [address] Hepatitis B Surface Antigen (External Result) (07/25/2021 12:00 PM CDT) [facility] Method Time Signature Hepatitis B Nonreactive Nonreactive [facility] Antigen (External) Specimen (Source) Anatomical Collection Method Collection Time Re ceived Time Location / / Volume Laterality 07/25/2021 12:00 PM CDT January [facility] LAB - HIM EXTERNAL RESULT Performing Organization Address City/State/ZIP Code Phon e Number [facility] [address] [place] [address] HIV-1 Antibody (External Result) (07/25/2021 12:00 PM CDT) [facility] gist Method Time Signature HIV 1&2 Negative Nonreactive [facility] (External) Specimen (Source) Anatomical Collection Method Collection Time Re ceived Time Location / / Volume Laterality 07/25/2021 12:00 PM CDT January [facility] LAB - HIM EXTERNAL RESULT Performing Organization Address City/[facility]/ZIP Code Phon e Number [facility] [address] [place] [address] documented in this encounter Visit Diagnoses Diagnosis Encounter for induction of labor documented in this encounter Admitting Diagnoses Diagnosis Encounter for induction of labor documented in this encounter Administered Medications Inactive Administered Medications - up to 3 most recent administrations Medication Order MAR Action Action Date Dose Rate Site acetaminophen (TYLENOL) tablet 650 Given 10/28/2021 6:26 PM CELLOPHANE WORKER 650 mg mg 650 mg, Oral, EVERY 4 HOURS PRN, mild pain, fever, greater than or equal to 38?? C /100.4?? F (oral) or 38.5?? C/ 101.4?? F (core)., Starting on 10/28/21 at 1039, Maximum acetaminophen dose from all sources = 75 mg/kg/day not to exceed 4 grams/day., Intrapartum acetaminophen (TYLENOL) tablet 975 mg Given 10/29/2021 9:06 AM CELLOPHANE WORKER 975 mg 975 mg, Oral, EVERY 6 HOURS, First dose on 10/28/21 at 2100, Scheduled acetaminophen (TYLENOL) until delivery for Intrapartum Intra-Amniotic Infection/Inflammation (Triple I). Nurse may discontinue this order with delivery. Maximum acetaminophen dose from all sources = 75 mg/kg/day not to exceed 4 grams/day., Intrapartum Given 10/29/2021 3:47 AM CELLOPHANE WORKER 975 mg Given 10/28/2021 10:21 PM CELLOPHANE WORKER 975 mg Acetazolamide ER 500mg (HOME MED) Nos Given 10/29/2021 8:48 AM CELLOPHANE WORKER 500 mg 500 mg, Oral, 2 TIMES DAILY, First dose on 10/28/21 at 2000 Given 10/28/2021 8:19 PM CELLOPHANE WORKER 500 mg ampicillin (OMNIPEN) 2 g vial to attach to NS New Bag 3:47 AM CELLOPHANE WORKER 2 g 100 mL bag STAT, 2 g, Intravenous, EVERY 6 HOURS, First dose on 10/28/21 at 2100, Give until delivery., Indications: Skin and Soft Tissue Infection, Intrapartum New Bag 10/28/2021 8:48 PM CELLOPHANE WORKER 2 g diphenoxylate-atropine (LOMOTIL) Given 10/28/2021 12:10 PM CELLOPHANE WORKER 2 tablets 2.5-0.025 MG per tablet 2 tablet 2 tablet, Oral, EVERY 6 HOURS PRN, diarrhea, Starting on 10/28/21 at 1230, Do not exceed 8 tabs in 24 hours, Intrapartum fentaNYL (PF) (SUBLIMAZE) 100 MCG/2ML in jection Starting on 10/28/21 at 1645, For 1 dose, Radames Busby ie: cabinet override fentaNYL (PF) (SUBLIMAZE) injection 100 mcg Given 10/28/2021 4:47 PM CELLOPHANE WORKER 100 mcg 100 mcg, Intravenous, ONCE, On 10/28/21 at 1700, For 1 dose fentaNYL (SUBLIMAZE) 2 mcg/mL, New Syringe/Cartridge 10/28/2021 5:34 PM CELLOPHANE WORKER ROPivacaine (NAROPIN) 0.1% in NaCl 0.9% for [...] pharmacy to send epidural tubing set., Routine [id number]-[id number]-[id number] 0.4-0.1-0.9 MG/2 00ML-% injection Angeline Heck: cabinet override Absolutely no anticoagul ants, thrombolytics or antiplatelet medications or other opioid analgesics or other sedatives without prior notification of anesthesiology. Fo r CADD cassettes, pharmacy to send epidural tubing set., 1 dose, Starting on 10/28/21 at 1703, Until 10/28/21 at 1734 gentamicin (GARAMYCIN) 140 mg in sodium New Bag 10/28/2021 9:29 PM CELLOPHANE WORKER 140 mg chloride 0.9 % 50 mL intermittent infusi on STAT, 140 mg (rounded from 132 mg = 2 mg/kg ? 66 kg Adjusted weight), Intravenous, ONCE, On 10/28/21 at 2100, For 1 dose, LOADING DOSE., Indications: Skin and Soft Tissue Infection, Intrapartum gentamicin (GARAMYCIN) infusion 100 mg New Bag 10/29/2021 6:08 AM CELLOPHANE WORKER 100 mg Routine, 100 mg (rounded from 99 mg = 1.5 mg/kg ? 66 kg Adjusted weight), Intravenous, EVERY 8 HOURS, First dose on 10/29/21 at 0500, Starting 8 hours after loading dose. Give until delivery., Indications: Skin and Soft Tissue Infection, Intrapartum HYDROmorphone (DILAUDID) injection 0.4 m g Given 10/28/2021 4:11 PM CELLOPHANE WORKER 0.4 mg 0.4 mg, Intravenous, EVERY 2 HOURS PRN, severe pain, with induction procedure., Starting on 10/28/21 at 1040, Intrapartum lactated ringers BOLUS 250 mL Rate/Dose Change 10/29/2021 5:37 AM CELLOPHANE WORKER Intravenous, 250 mL, ONCE PRN, other, hypotension, [...] ringers infusion New Bag 10/29/2021 2:32 AM CELLOPHANE WORKER 125 mL/hr at 25-125 mL/hr, Intravenous, CONTINUOUS PRN, Titrate lactated ringers rate to obtain total IV intake of 125 mL/hr. Total IV fluids should not exceed 125 mL/hr without provider order., Intrapartum, Starting on 10/28/21 at 1909, Until 10/29/21 at 0958 lactated ringers injection New Bag 10/28/2021 5:38 PM CELLOPHANE WORKER 1,000 mLs 125 mL/hr Angeline Busby: cabinet override, 1 dose, Starting on 10/28/21 at 1630, Until 10/28/21 at 1738 lactated ringers injection New Bag 10/28/2021 4:38 PM CELLOPHANE WORKER 1,000 mLs 999 mL/hr Angeline Busby: cabinet override, 1 dose, Starting on 10/28/21 at 1630, Until 10/28/21 at 1638 lamoTRIgine (LaMICtal) tablet 400 mg Given 10/29/2021 8:48 AM CS T 400 mg Pt-Supplied 400 mg, Oral, 2 TIMES DAILY, First dose (after last modification) on 10/28/21 at 2000, Patient to take home supply Given 10/28/2021 8:19 PM CELLOPHANE WORKER 400 mg Levetiracetam 1000mg tablet (HOME MED) A ur Given 10/29/2021 8:48 AM CELLOPHANE WORKER 1,000 mg 1,000 mg, Oral, 2 TIMES DAILY, First dose on 10/28/21 at 2000 Given 10/28/2021 8:20 PM CELLOPHANE WORKER 1,000 mg miFEPRIStone (MIFEPREX) tablet 200 mg Given 10/28/2021 12:11 PM CELLOPHANE WORKER 200 mg 200 mg, Oral, ONCE, On [...] tablet 400 mcg Given 10/28/2021 3:56 PM CELLOPHANE WORKER 400 mcg 400 mcg, Vaginal, EVERY 3 HOURS, First dose on 10/28/21 at 1300, Place in the posterior vaginal fornix. First dose to be administered concurrently with miFEPRIStone., Intrapartum Given 10/28/2021 12:09 PM CELLOPHANE WORKER 400 mcg nalbuphine (NUBAIN) injection 2.5-5 mg [...] mL/hr units in 500 mL 0.9% AM CELLOPHANE WORKER NaCl infusion 1-24 jose-units/min (1-24 mL/hr), Intravenous, [...] medication., Intrapartum Rate/Dose Change 10/29/2021 4:42 AM CELLOPHANE WORKER 18 jose-units/min 18 mL/hr Rate/Dose Change 10/29/2021 3:30 AM CELLOPHANE WORKER 16 jose-units/min 16 mL/hr phenylephrine (CELIA-SYNEPHRINE) 100 mcg/m L injection Starting on 10/28/21 at 1703, For 1 dose, Radames Busby ie: cabinet override Vesicant. phenylephrine (CELIA-SYNEPHRINE) injection 100 Given 6:41 PM CELLOPHANE WORKER 100 mcg mcg 100 mcg, Intravenous, EVERY [...] doses. Vesicant., Intrapartum Given 10/28/2021 6:34 PM CELLOPHANE WORKER 100 mcg documented in this encounter Active and Recently Administered Medications Times are shown in CELLOPHANE WORKER. Scheduled Medication Order 10/27/2021 10/28/2021 10/29/2021 acetaminophen [...] Busby, SOHEILA)210 (Rate/Dose Change - Provider: Anabel Bsuby RN)214 (Rate/Dose Change - Provider: Anabel Busby [...] after each naloxone dose. Consider transfer to [facility] if patient respiratory parameters hav e not [...] doses.
documented in this encounter Care Teams Program Rep Relationship Specialty Start Date End Date [facility] PCP - General 09/05/17 [address] [place], [place] [phone] Gia Martínez MD Assigned OBGYN Provider 10/29/21 [address] [facility] [address] [place], [place] [id number] documented as of this encounter
--- OUTSIDE RECORDS SUMMARY | 2022-07-05 14:00 | XMS_ITS | Encounter Summary ---
:1985 Author Organization [place] Address [address] [place] [address]. [place] [address] Care Team Providers Name Role Phone [facility] Primary Care Provider [phone] Gia Martínez MD Unavailable [phone] Reason for Visit Auth/Cert Specialty Diagnoses / Procedures Referred By Contact Refer red To Contact parking patroller Diagnoses Encounter for induction of labor Maternity elizabeth: 03/07/22 IOL Encounter for induction of labor Ur [address] [place] [phone] Phone: Referral ID Status Reason Start Date Expiration Date Visits Requ ested Visits Authorized [id number] 1 1 Encounter Details Date Type Department Care Team Description 10/28/2021 Anesthesia Event M [facility] Aysha Schmitz MD [address] [place], [place] [address] Birthplace Charley Oliveira MD [address] [place], [place] [id number] [address] [place] [phone] Anesthesia Record Procedure Summary Procedure Name [...] with No / Unsure 10/28/2021 8:34 AM MORTAR WORKER someone who was confirmed or suspected [...] Past Surgical History: Procedure Laterality Date ??? CEMENT CAR DUMPER SURGERY 4th degree vaginal laceration ? ? [...] and realistic alternatives discussed. Questions answered and patient/accounting representative(s) expressed understanding. 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 Patient requested epidural catheter for labor, completed on10/28/[address] Oliveira. Aysha Contreras MD AR WORKER Anesthesia Procedure Notes - Charley Oliveira MD - 10/28/2021 6:50 PM MORTAR WORKER Associated Order(s): Epidural Block Epidural catheter Procedure [...] lidocaine 1.5% w/ 1:200,000 epinephrine at 17:01 MORTAR WORKER. Test dose negative, 3 minutes after injection, for signs of intravascular, subdural, or intrathecalinjection. Insertion/Infusion Method: LORT saline No aspiration negative for Heme or CSF via Epidural Catheter. Medication(s) Administered 0.125% bupivacaine (Epidural), 8 mL Medication Administration Time: 10/28/2021 5:03 PM AR WORKER documented in this encounter Plan of Treatment Not on filedocumented as of this encounter Procedures Procedure Name Priority Date/Time Associated Diagnosis Comme nts ANE EPIDURAL BLOCK Routine 10/28/2021 5:03 PM Res ults for this MORTAR WORKER procedure are i n the results section. documented in this encounter Results FV AN EPIDURAL DUMMY PERFORMABLE (10/28/2021 5:03 PM MORTAR WORKER) Narrative Charley Oliveira MD - 10/28/2021 5:03 PM MORTAR WORKER Charley Oliveira MD ? 10/28/2021 ??6:51 PM [...] lidocaine 1.5% w/ 1:200,000 epinephrine at 17:01 MORTAR WORKER. ? Test dose negative, 3 minutes aft er injection, for signs of intravascular, subdural, or intrathecal injection. ? Insertion/Infusion Method: LORT s asher ? No aspiration negative for Heme o r CSF via Epidural Catheter. Medication(s) Administered 0.125% bupivacaine (Epidural), 8 mL Medication Administration Time: 5:03 PM Charley Oliveira MD NE ANESTHESIA documented in this encounter Visit Diagnoses Not on filedocumented in this encounter Administered Medications Inactive Administered Medications - up to 3 most recent administrations Medication Order MAR Action Action Date Dose Rate Site bupivacaine (MARCAINE) 0.125 % Given 10/28/2021 5:03 PM MORTAR WORKER 8 mL s injection (diluted from stock concentration by or STUDIO CONTROL OPERATOR) EPIDURAL, Starting on 10/28/21 at 1703, Anesthesia Intra-op documented in this encounter Care Teams Can Washer Relationship Specialty Start Date End Date [facility] PCP - General [facility]05/17 [address] [facility] [place] [phone] Gia Martínez MD Assigned OBGYN Provider 10/29/[address] [place] [address] documented as of this encounter
--- OUTSIDE RECORDS SUMMARY | 2022-07-05 14:00 | XMS_ITS | Clinical Summary ---
:1985 Author [facility] [place] [address] Care Team Providers Name Role Phone Juan [...] daily. Active Problems No known active problems Social History Tobacco Use Types Packs/Day Years [...] test for age 21-65 03/19/2025 03/19/2022, 03/19/2022 Results Not on filefrom Last 3 Months Insurance Payer Benefit Plan / Subscriber ID Effective Dates Phone Addre ss Type Group BLUE CROSS BLUE CROSS OF [id number] 2018-Present [address] [address] [place] [address] Care Teams Corrections Counselor Relationship Specialty Start Date End Date Juan Alberto Jackson MD PCP - General 09/20/08
--- OUTSIDE RECORDS SUMMARY | 2022-07-05 14:00 | XMS_ITS | Encounter Summary ---
:1985 Author Organization [place] Address [address] [place] [address]. [place] [address] Care Team Providers Name Role Phone [facility] Primary Care Provider [phone] Gia Martínez MD Unavailable [phone] Encounter Details Date Type Department Care Team Description 11/21/2021 Telephone [facility] Gia Martínez MD [address] [place] [address] [address] [place] [address] [place] [address] [phone] Social History Tobacco Use Types Packs/Day Years Used Date Never Smoker Smokeless Tobacco: Never Used Alcohol Use Standard Drinks/Week Comments Not Currently 0 (1 standard drink = 0.6 oz pure alcoho l) occ Sex Assigned at Date Recorded Not on file COVID-19 Exposure Response Date Recorded In the last month, have you been in contact with No / Unsure 10/28/2021 8:34 AM MANAGER COMMERCIAL REAL ESTATE someone who was confirmed or suspected to [...] 10:33 AM CDT RN attempting to contact senior billing consultant about this case. Liyah Loza RN Telephone [...] today to update her. Liyah Loza RN GER [employer] E[employer] Telephone Encounter - Gia Martínez MD - 11/21/2021 10:31 AM MANAGER COMMERCIAL REAL ESTATE Trinity Ramirez is a 36 year old who had a termination induction at 21w3d for multiple anomalies suspected trisomy 18. Can you help with the coding request? I don't know what they are talking about. Thanks, Gia Martínez MD GER [employer] ESTATE Telephone Encounter - Liyah Loza RN - [...] Trinity can be updated. Liyah Loza RN GER COMMERCIAL [employer] ESTATE documented in this encounter Plan of Treatment Not on filedocumented as of this encounter Visit Diagnoses Not on filedocumented in this encounter Care Teams Ctc Operator Relationship Specialty Start Date End Date [facility] PCP - General 09/05/17 [address] [place], [place] [phone] Gia Martínez MD Assigned OBGYN Provider 10/29/[address] [place] [address] documented as of this encounter
--- OUTSIDE RECORDS SUMMARY | 2022-07-05 14:00 | XMS_ITS | Clinical Summary ---
:1985 Author Organization [place] Address [address] [place] [address] Care Team Providers Name Role Phone [facility] Primary Care Provider [phone] Gia Martínez MD Unavailable [phone] Allergies No known active allergies Medications [...] Comments Blood Pressure 107/66 10/29/2021 11:27 AM REPROGRAPHICS TECHNICIAN Pulse 57 06/16/2013 7:52 AM CDT Temperature 37 ??C (98.6 ??F) 10/29/2021 6:23 AM REPROGRAPHICS TECHNICIAN Respiratory Rate 99 10/29/2021 8:38 AM REPROGRAPHICS TECHNICIAN Oxygen Saturation 100% 10/29/2021 12:01 PM REPROGRAPHICS TECHNICIAN Inhaled Oxygen Concentration - - Weight 79.4 kg (175 lb) 10/28/2021 9:00 AM REPROGRAPHICS TECHNICIAN Height 165.1 cm (5' 5) 10/28/2021 9:00 AM REPROGRAPHICS TECHNICIAN Body Mass Index 29.12 10/28/2021 9:00 AM REPROGRAPHICS TECHNICIAN Plan of Treatment Health Maintenance Due Date Last Done Comments ADVANCE CARE PLANNING 1985 ANNUAL REVIEW OF HM ORDERS 1985 PREVENTIVE CARE VISIT 1985 Pneumococcal Vaccine: 1993 Pediatrics (0 to 5 Years) and At-Risk Patients (6 to 64 Years) (1 - PCV) PAP 2008 COVID-19 Vaccine (3 - 06/09/2021 04/14/2021, 03/24/2021 Booster for Pfizer series) PHQ-2 [...] ss Type Group BCBS BCBS OUT OF [id number] 2021-Present [phone] [address] [address] [place] [address] Advance Directives For more information, please contact: [phone] Latest Code Status on File Code Status Date Activated Date Inactivated Comments Full Code 10/28/2021 6:54 PM 10/29/2021 4:58 PM All basic an d advanced life-sustaining interventions are performed as pepito ropriate Code status determined by: Discussion with patient/ legal de cision maker Care Teams Claims Coordinator Relationship Specialty Start Date End Date [facility] PCP - General 09/05/17 [address] [place], [place] [phone] Gia Martínez MD Assigned OBGYN Provider 10/29/[address] [address]
--- OUTSIDE RECORDS SUMMARY | 2022-07-05 14:01 | XMS_ITS | Encounter Summary ---
:1985 Author Organization [place] Address [address] [place] [address] Care Team Providers Name Role Phone Unavailable Primary Care Provider Unavailable Encounter Details Date Type Department Care Team Description 10/12/2007 Emergency room Melisa Barton MD EMERGENCY PHYSIC VIGNESH INMAN [address] [facility] [address] [place], [place] [address] (Wo rk) Social History Tobacco Use Types Packs/Day Years Used Date Never Assessed Sex Assigned at Date Recorded Not on file documented as of this encounter Progress Notes Melisa Barton MD - 11/13/2007 2:00 PM CHRISTIAN EDUCATION DIRECTOR FINAL CHIEF COMPLAINT: I got my period [...] 85, respirations 32, temperature 99 and oxygen [id number]% on room air. GENERAL: This is a [...] MD MT: [id number] Name: TRINITY AYALA Account: [id number] : 1985 Visit Date: 10/12/2007 Document: [id number] STIAN EDUCATION DIRECTOR documented in this encounter Plan of Treatment Not on filedocumented as of this encounter Visit Diagnoses Not on filedocumented in this encounter
--- OUTSIDE RECORDS SUMMARY | 2022-07-05 14:01 | XMS_ITS | Encounter Summary ---
:1985 Author Organization [place] Address [address] [place] [address]. [place] [address] Care Team Providers Name Role Phone [facility] Primary Care Provider [phone] Reason for Referral Consultation (Routine: Next available opening) - Pending Review Specialty Diagnoses / Procedures Referred By Contact Refer red To Contact Diagnoses related condition, antepartum Shirley Pearson [facility] [address] [place] [address] Referral ID Status Reason Start Date Expiration Date Visits V isits Requested Authorized [id number] Pending 10/24/2021 10/24/2022 1 1 Review TRON BEAM WELDING MACHINE OPERATOR Encounter Details Date Type Department Care Team Description 10/24/2021 Transcribe Orders [facility] Alexy Barajas, James misty related Maternal Shirley Becerra condition, Medicine Center [facility] antepartum (Primary [facility] Dx) [address] [facility] [address] [place] [address] [phone] Social History Tobacco Use Types Packs/Day Years [...] Primary documented in this encounter Care Teams Engraving Supervisor Relationship Specialty Start Date End Date [facility] PCP - General 09/05/17 [address] [address] [place], [place] [phone] documented as of this encounter
--- OUTSIDE RECORDS SUMMARY | 2022-07-05 14:01 | XMS_ITS | Encounter Summary ---
:1985 Author Organization [place] Address [facility] [place] [address] Care Team Providers Name Role Phone [facility] Primary Care Provider [phone] Reason for Visit Reason Comments Ultrasound L2 - multiple abnormalities from outside ultrasound Encounter Details Date Type Department Care Team Description 10/26/2021 Office Visit [facility], complicated Maternal Shirley A by congenital Medicine Center [facility] heart disea se, single [facility] or unspecified fetus [address] [facility] (Primary Dx) [place], [place] [address] [place], [place] [phone] Social History Tobacco Use Types Packs/Day Years Used Date Never Smoker Alcohol Use Standard Drinks/Week Comments Yes 0 (1 standard drink = 0.6 oz pure alcoho l) occ Sex Assigned at Date Recorded Not on file COVID-19 Exposure Response Date Recorded In the last month, have you been in contact with No / Unsure 10/26/2021 1:52 PM DOLLY DRIVER someone who was confirmed or suspected to have Coronavirus / COVID-19? documented as of this encounter Progress Notes Ce Andersen MD - 10/26/2021 2:00 PM CST Please see the imaging tab for details of the ultrasound performed today. Ce Andersen MD Specialist in Maternal- Medicine Y DRIVER documented in this encounter Plan of Treatment Not on filedocumented as of this encounter Visit Diagnoses Diagnosis complicated by congenita l heart disease, single or unspecified fetus - Primary documented in this encounter Care Teams Engineering Production Liaison Relationship Specialty Start Date End Date [facility] PCP - General 09/05/17 [address] [place] [address] documented as of this encounter
--- OUTSIDE RECORDS SUMMARY | 2022-07-05 14:01 | XMS_ITS | Encounter Summary ---
:1985 Author Organization [place] Address [address] [place] [address] Care Team Providers Name Role Phone [facility] Primary Care Provider [phone] Reason for Referral Diagnostic Imaging Ultrasound (Routine) - Pending Review Specialty Diagnoses / Procedures Referred By Contact Refer red To Contact Diagnoses related condition, antepartum Peterson Pearson Procedures [facility] [address] [place] [address] Referral ID Status Reason Start Date Expiration Date Visits V isits Requested Authorized [id number] Pending 10/24/2021 10/24/2022 1 1 Review GRADER Reason for Visit Diagnostic Imaging Ultrasound (Routine) - Pending Review Specialty Diagnoses / Procedures Referred By Contact Refer red To Contact Diagnoses related condition, antepartum Peterson Pearson Procedures [facility] [address] [place] [address] Referral ID Status Reason Start Date Expiration Date Visits V isits Requested Authorized [id number] Pending 10/24/2021 10/24/2022 1 1 Review Encounter Details Date Type Department Care Team Description 10/26/2021 Hospital Encounter [facility] Abbi Pearson garfield related Maternal Peterson Becerra condition, [facility] antepartum [facility] [address] [place] [address] [phone] Social History Tobacco Use Types Packs/Day Years Used Date Never Smoker Alcohol Use Standard Drinks/Week Comments Yes 0 (1 standard drink = 0.6 oz pure alcoho l) occ Sex Assigned at Date Recorded Not on file COVID-19 Exposure Response Date Recorded In the last month, have you been in contact with No / Unsure 10/26/2021 1:52 PM RAG GRADER someone who was confirmed or suspected to [...] Procedure Name Priority Date/Time Associated Comments Diagnosis [facility] US COMPREHENSIVE Routine 10/26/2021 3:29 PM rela estelita Results for this SINGLE RAG GRADER condition, procedure are i n antepartum the results section. documented in this encounter Results [facility] US Comprehensive Single (10/26/2021 3:29 PM RAG GRADER) Anatomical Region Laterality Modality Ultrasound Specimen (Source) Anatomical Collection Method Collection Time Re ceived Time Location / / Volume Laterality 10/26/2021 1:55 PM RAG GRADER Impressions 10/26/2021 5:17 PM RAG GRADER IMPRESSION 1) Eduardo intrauterine at 2 1w [...] of growth restriction. Narrative 10/26/2021 5:17 PM RAG GRADER Comprehensive Pat. Name: JAMIE TRINITYNIXON Dimas Chet e: 10/26/2021 1:55pm Pat. NO: [id number] Referring ??: SETH FRAGOSO Site: [facility] Gathering Worker: Marya Moy RDMS : 1985 Age: 36 [...] lb 11 ? oz EFW by ?Hadlock ([id number]) Head / Face / Neck Biometry: Field Service Manager ? 4.8 ? mm CM ?5.4 ? [...] Heart / Thorax ?Situs. Ductal arch view. 5-jozgag-zotmewn view. Cardiac position. Cardiac size. Cardiac rhythm. [...] scheduled of induction of la bor through [facility]. Trinity would like to proceed with [...] different from the original. Comprehensive Pat. Name:Zena AYALAshanthidavdi Date: 10/26/2021 1:55pm Pat. NO: [id number] MD:PETERSON MEDINA [facility]Marya Moy RD MS :1985Age:36 INDICATION Multiple [...] 0 lb 11 oz EFW by Hadlock ([id number]) Head / Face / Neck Biometry: Field Service Manager 4.8 mm CM 5.4 mm Nasal bone [...] Heart / Thorax Situs. Ductal arch view. 1-revtpq-tjufogv view. Cardiac position. Cardiac size. Cardiac rhythm. [...] RECOMMENDATION We discussed the findings on today's [facility] rasound with the patient. Trinity was [...] scheduled of induction of la bor through [facility]. Trinity would like to proceed with [...] finding of growth restriction. Peterson Medina Addi [facility] US ORDERABLES documented in this encounter Visit Diagnoses Diagnosis related condition, antepartum documented in this encounter Care Teams Gamewell Operator Relationship Specialty Start Date End Date [facility] PCP - General 09/05/17 [address] [address] [place], [place] [id number] documented as of this encounter
--- OUTSIDE RECORDS SUMMARY | 2022-07-05 14:01 | XMS_ITS | Encounter Summary ---
:1985 Author Organization [place] Address [address] [place] [address]. [place] [address] Care Team Providers Name Role Phone [facility] Primary Care Provider [phone] Encounter Details Date Type Department Care Team Description 10/24/2021 Medical Correspondence [facility] Scan, OBGYN REFERRAL Health Info [facility] Non-Provider [facility] [address] [place] [phone] Social History Tobacco Use Types Packs/Day Years Used Date Never Smoker Alcohol Use Standard Drinks/Week Comments Yes 0 (1 standard drink = 0.6 oz pure alcoho l) occ Sex Assigned at Date Recorded Not on file documented as of this encounter Plan of Treatment Not on filedocumented as of this encounter Visit Diagnoses Not on filedocumented in this encounter Care Teams Veneer Supervisor Relationship Specialty Start Date End Date [facility] PCP - General 09/05/17 [address] [place] [address] documented as of this encounter
--- OUTSIDE RECORDS SUMMARY | 2022-07-05 14:01 | XMS_ITS | Encounter Summary ---
:1985 Author Organization [place] Address [address] [place] [address]. [place] [address] Care Team Providers Name Role Phone [facility] Primary Care Provider [phone] Reason for Visit Auth/Cert - Closed Specialty Diagnoses / Procedures Referred By Contact Refer red To Contact Surgery Diagnoses Chronic Tonsilitis Rh Periop Services Procedures TONSILLECTOMY [address] [place], [place] [address] Phone: Fax: Referral ID Status Reason Start Date Expiration Date Visits Requ ested Visits Authorized [id number] Closed 1 1 Encounter Details Date Type Department Care Team Description 02/18/2013 Hospital Encounter [facility] Ronald Loya, Chronic tonsillitis Ridgejesus Post MD (Primary Dx) Anesthesia Care [facility] [address] [place], [place] [address] [facility] [address] [place] [address] [place], [place] [address] Social History Tobacco Use Types Packs/Day Years [...] ML AT 2:10 PM TONSILLECTOMY DISCHARGE INSTRUCTIONS [facility], PCarla Guzman M.D. Phill Kahn M.D. Jeff Henry M.D. Ronald Loya M.D. 1. Patients should eat only [...] It is best to stay in the [facility] area for the two week [...] have any problems or questions, please call [phone], 24 hours a day. GENERAL ANESTHESIA OR [...] documented as of this encounter H&P Notes Ronald Loya MD - 02/17/2013 2:29 PM CDT [...] this encounter Miscellaneous Notes Op Note - Ronald Loya MD - 02/18/2013 1:25 PM CDT DATE OF SERVICE: 02/18/2013 PREOPERATIVE DIAGNOSES Chronic tonsillitis POSTOPERATIVE DIAGNOSES same SURGEON Ronald Loya M.D. TITLE OF PROCEDURE Tonsillectomy. ANESTHESIA [...] in stable condition. There were no immediatecomplications. RONALD LOYA MD documented in this encounter Plan [...] Component Value Ref Test Analysis Performed At [facility] Range Method Time Signature Copath Report Patient Name: TRINITY AYALA MR#: [id number] Specimen #: [id number] Collected: 02/18/2013 Received: 02/18/2013 Reported: 02/19/2013 16:17 Ordering Phy(s): RONADL LOYA SPECIMEN(S): A: Tonsil, right B: Tonsil, [...] serial sections, no gross lesions are identified. ??Geneticist section is submitted in one cassette. B. ??The specimen, labeled left tonsil, consists of formal in-fixed morin to pink to hemorrhagic soft palatine tonsil measuring 2.5 cm x 1.5 cm x 1 cm. ??On serial sections, no gross lesions are identified. Geneticist section is submitted in one cassette. ??MGP/s g MICROSCOPIC: A. and B. ??Microscopic examination is performed. SA/sg DT/02-19-13 TESTING LAB LOCATION: [address] ??[address] COLLECTION SITE: Client: [facility] Location: RHOR (R) Specimen Anatomical Collection Method Collection Time Receive d Time (Source) Location / / Volume Laterality 02/18/2013 1:15 PM 3 1:45 CDT PM CDT Ronald Loya MD LAB - BEAKER AP Performing Organization Address City/State/ZIP Code Phon e Number COPATH HCG qualitative urine (02/18/2013 10:10 AM CDT) P athologist Signature HCG Qual Urine Negative NEG [facility] LAB Specimen Anatomical Collection Method Collection Time Receive d Time (Source) Location / / Volume Laterality Urine specimen URINE SPECIMEN / 02/18/2013 10:10 02/18 (specimen) Unknown AM CDT 10:23 AM CDT Allan Garrett MD LAB - URINE ORDERABLES Performing Organization Address City/State/ZIP Code Phon e Number M [facility] [address] [place], [place] [address] [facility] documented in this encounter Visit [...] (bottle) irrigation (CANCELED) 1323 (Given - Provider: Ronald Loya MD - Comment: 50 mls. used as irrigation) PRN, Intra-procedure documented in this encounter Care Teams Candy Dipper Hand Relationship Specialty Start Date End Date [facility] PCP - General 02/04/13 06/15/13 documented as of this encounter
--- OUTSIDE RECORDS SUMMARY | 2022-07-05 14:01 | XMS_ITS | Encounter Summary ---
:1985 Author Organization [place] Address [facility] [place] [address] Care Team Providers Name Role Phone [facility] Primary [facility] [phone] Reason for Visit Reason Onset Date Comments Clinic Care Coordination - Initial 10/24/2021 Encounter Details Date Type Department Care Team Description 10/24/2021 Telephone [facility] Larissa Hernandez, Clinic Care Coordination Maternal Medicine GC - Initial [address] [facility] [address] [place] [phone] Social History Tobacco Use Types Packs/Day Years [...] OB provider may be able to contact [facility] directly to coordinate this care. I provided Trinity with the phone number for [facility]. I encouraged her to reach out if we can help any further. However, I reiterated that I cannot help coordinate care directly unless Trinity becomes our patient. Larissa Hernandez MS, [facility] Licensed Genetic Counselor [facility] Maternal Medicine [phone] Y FARM OPERATOR Telephone Encounter - Larissa Hernandez GC - 10/24/2021 1:53 PM CST October 24, 2021 I reached out to Trinity to discuss a referral we received from her OB provider. 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 These included a heart defect, multiple choroid plexus cysts, lagging growth, possibly abnormal limbs, and other features. Trinity's OB provider edinson [id number] yesterday. Given Trinity's gestational age, we reviewed [...] Trinity does not feel that coming to [facility] and getting more imaging is going to change the course of her at this time, and she does not wish to proceed with amniocentesis. I strongly encouraged Trinity to reach back out to her OB provider to coordinate next steps. Larissa Hernandez MS, [facility] Licensed Genetic Counselor [facility] Maternal Medicine [phone] Y FARM OPERATOR documented in this encounter Plan of Treatment Not on filedocumented as of this encounter Visit Diagnoses Not on filedocumented in this encounter Care Teams Pelt Shearer Relationship Specialty Start Date End Date [facility] PCP - General 09/05/17 [address] [address] [place], [place] [phone] documented as of this encounter
--- OUTSIDE RECORDS SUMMARY | 2022-07-05 14:01 | XMS_ITS | Encounter Summary ---
:1985 Author Organization [place] Address [address] [place] [address] Care Team Providers Name Role Phone Unavailable Primary Care Provider Unavailable Encounter Details Date Type Department Care Team Description 11/10/2007 Historic Results INTERFACED REPORT Tobi Kirkpatrick [address] [place] [address] Social History Tobacco Use Types Packs/Day Years Used Date Never Assessed Sex Assigned at Date Recorded Not on file documented as of this encounter Plan of Treatment Not on filedocumented as of this encounter Procedures Procedure Name Priority Date/Time Associated Comments Diagnosis LAMOTRIGINE LEVEL STAT 11/10/2007 2:42 PM Resu lts for this BOOSTER PUMP OILER procedure are i n the results section. BASIC METABOLIC PANEL STAT 11/10/2007 2:42 PM Results for this BOOSTER PUMP OILER procedure are i n the results section. HCG QUALITATIVE URINE STAT 11/10/2007 2:30 PM Results for this BOOSTER PUMP OILER procedure are i n the results section. documented in this encounter Results Basic metabolic panel (11/10/2007 2:42 PM BOOSTER PUMP OILER) P athologist Signature Sodium 139 133 - [...] Volume Laterality 11/10/2007 2:42 PM 8 2:23 BOOSTER PUMP OILER PM BOOSTER PUMP OILER Antonio Kirkpatrick LAB - BLOOD ORDERABLES Performing Organization Address [facility] Phon e Number MISYS Lamotrigine level (11/10/2007 2:42 PM BOOSTER PUMP OILER) athologist Signature Lamotrigine 2.8 MISYS Level Comment: Reference range: 2.0 ??to ??20.0 Unit: ug/ml (Note) CURRENT CLINICAL INFORMATION SUGGESTS TH E RECOMMENDED CONCENTRATIONS FOR LAMOTRIGINE DURING CH RONIC THERAPY ARE 2 - 20 ug/ml. LAMOTRIGINE ANALYSIS PERFORMED BY HIGH P ERFORMANCE LIQUID CHROMATOGRAPHY (HPLC). Analysis performed by [email or web address] [place] [address] Specimen Anatomical Collection Method Collection Time Receive d Time (Source) Location / / Volume Laterality 11/10/2007 2:42 PM 8 2:23 BOOSTER PUMP OILER PM BOOSTER PUMP OILER Antonio Kirkpatrick LAB - BLOOD ORDERABLES Performing Organization Address [facility] Phon e Number MISYS HCG qualitative urine (11/10/2007 2:30 PM BOOSTER PUMP OILER) athologist Signature HCG Qual Urine Negative NEG MISYS Specimen Anatomical Collection Method Collection Time Receive d Time (Source) Location / / Volume Laterality 11/10/2007 2:30 PM 8 2:23 BOOSTER PUMP OILER PM BOOSTER PUMP OILER Antonio Kirkpatrick LAB - URINE ORDERABLES Performing Organization Address City/[facility]/ZIP [facility] Phon e Number MISYS documented in this encounter Visit Diagnoses Not on filedocumented in this encounter
--- OUTSIDE RECORDS SUMMARY | 2022-07-05 14:01 | XMS_ITS | Encounter Summary ---
:1985 Author Organization [place] Address [address] [place] [address]. [place] [address] Care Team Providers Name Role Phone [facility] Primary Care Provider [phone] Reason for Visit Auth/Cert - Closed Specialty Diagnoses / Procedures Referred By Contact Refer red To Contact Surgery Diagnoses Chronic Tonsilitis Rh Periop Services Procedures TONSILLECTOMY [address] [place], [place] [address] Phone: Fax: Referral ID Status Reason Start Date Expiration Date Visits Requ ested Visits Authorized [id number] Closed 1 1 Encounter Details Date Type Department Care Team Description 02/18/2013 Anesthesia Event [facility] Ronald Gonzáles MD [facility] ANEST[facility]ESIA [facility] [address] [place], [place] [address] [facility] Jaylene Elizabeth APRN CRNA S [facility] [address] [place], [place] [address] [address] [place] [address] Anesthesia Record Procedure Summary Procedure Name Responsible [...] benefits and alternatives discussed with: patient or printing supplies sales representative. History & Physical Review History [...] Intra-op documented in this encounter Care Teams Fire Claims Adjuster Relationship Specialty Start Date End Date [facility] PCP - General 02/04/13 06/15/13 documented as of this encounter
--- OUTSIDE RECORDS SUMMARY | 2022-07-05 14:01 | XMS_ITS | Encounter Summary ---
:1985 Author Organization [place] Address [address] [place] [address] Care Team Providers Name Role Phone [facility] Primary Care Provider [phone] Reason for Referral Diagnostic Imaging Ultrasound (Routine) - Pending Review Specialty Diagnoses / Procedures Referred By Contact Refer red To Contact Diagnoses related condition, antepartum Peterson Pearson Procedures [facility] [address] [place] [address] Referral ID Status Reason Start Date Expiration Date Visits V isits Requested Authorized [id number] Pending 10/24/2021 10/24/2022 1 1 Review GER EDUCATIONAL Consultation (Routine: Next available opening) - Pending Review Specialty Diagnoses / Procedures Referred By Contact Refer red To Contact Diagnoses related condition, antepartum Peterson Pearson [facility] [address] [place] [address] Referral ID Status Reason Start Date Expiration Date Visits V isits Requested Authorized [id number] Pending 10/24/2021 10/24/2022 1 1 Review GER EDUCATIONAL Encounter Details Date Type Department Care Team Description 10/24/[address] [facility] Alexy Barajas, Pregn misty related Maternal Peterson Becerra [facility], Medicine [facility] antepartum ([facility] D[facility]) [address] [facility] [address] [place] [address] Social History Tobacco Use Types Packs/Day Years Used Date Never Smoker Alcohol Use Standard Drinks/Week Comments Yes 0 (1 standard drink = 0.6 oz pure alcoho l) occ Sex Assigned at Date Recorded Not on file documented as of this encounter Plan of Treatment Scheduled Referrals Name Type Priority Associated Diagnoses [facility] Referral Routine: Next related Expe cted: Referral - available opening condition, 10/24/2021 antepartum (Approximate), Expires: 04/22/2022 documented as of this encounter Results [facility] US Comprehensive Single (10/26/2021 3:29 PM MANAGER EDUCATIONAL) Anatomical Region Laterality Modality Ultrasound Specimen (Source) Anatomical Collection Method Collection Time Re ceived Time Location / / Volume Laterality 10/26/2021 1:55 PM MANAGER EDUCATIONAL Impressions 10/26/2021 5:17 PM MANAGER EDUCATIONAL IMPRESSION 1) Eduardo intrauterine at 2 1w [...] of growth restriction. Narrative 10/26/2021 5:17 PM MANAGER EDUCATIONAL Comprehensive Pat. Name: TRINITY AYALA Study Chet e: 10/26/2021 1:55pm Pat. NO: [id number] Referring ??: SETH FRAGOSO Site: [facility] Data Warehouse Consultant: Marya Moy RDMS : 1985 Age: 36 [...] lb 11 ? oz EFW by ?Hadlock ([id number]) Head / Face / Neck Biometry: Canary Breeder ? 4.8 ? mm CM ?5.4 ? [...] Heart / Thorax ?Situs. Ductal arch view. 7-rpgzep-vnmypjq view. Cardiac position. Cardiac size. Cardiac rhythm. [...] scheduled of induction of la bor through [facility]. Trinity would like to proceed with [...] Thank you for the opportunity to partici frdedy in the care of this patient. If you have questions regarding today's evaluation or if we can be of further service, please contact the [facility] Center. anomalies may be present but not detected Procedure Note Ce Andersen MD - 10/26/2021Form atting of this note might be different from the original. Comprehensive Pat. Name:SAI AYALARahul Date: 10/26/2021 1:55pm Pat. NO: [id number] MD:PETERSON Houser [facility]:Marya Moy RD MS :1985Age:36 INDICATION Multiple [...] 0 lb 11 oz EFW by Hadlock ([id number]) Head / Face / Neck Biometry: Canary Breeder 4.8 mm CM 5.4 mm Nasal bone [...] Heart / Thorax Situs. Ductal arch view. 6-ufupsd-edpulhp view. Cardiac position. Cardiac size. Cardiac rhythm. [...] scheduled of induction of la bor through [facility]. Trinity would like to proceed with [...] the finding of growth restriction. Peterson Barajas [facility] US ORDERABLES documented in this encounter Visit Diagnoses Diagnosis related condition, antepartum - Primary related condition, antepartum documented in this encounter Care Teams Printed Circuit Board Designer Relationship Specialty Start Date End Date [facility] PCP - General 09/05/17 [address] [place] [address] documented as of this encounter
--- OUTSIDE RECORDS SUMMARY | 2022-07-05 14:01 | XMS_ITS | Encounter Summary ---
:1985 Author Organization [place] Address [address] [place] [address]. [place] [address] Care Team Providers Name Role Phone [facility] Primary Care Provider [phone] Ernestina Shah MD Unavailable Gia Martínez MD Unavailable [phone] Reason for Referral - Closed Specialty Diagnoses / Procedures Referred By Contact Refer red To Contact Diagnoses related condition Alberta Beckford, AISHA [facility] [address] [place] [address] Fax: Referral ID Status Reason Start Date Expiration Date Visits Requ ested Visits Authorized [id number] Closed 07/24/2018 07/24/2019 1 1 Encounter Details Date Type Department Care Team Description 07/24/2018 [facility] Only [facility] Alberta Beckford, Pregna ncy related Maternal SALES REPRESENTATIVES condition (Primary Dx) Medicine Center [facility] [address] [facility] [address] [place] [phone] Social History Tobacco Use Types Packs/Day Years [...] care documented in this encounter Care Teams Bottle Booth Attendant Relationship Specialty Start Date End Date [facility] PCP - General 09/05/17 [address] [address] [place], [place] [phone] Ernestina Shah MD MD Neurology 09/05/17 10/28/18 [facility] [address] [facility] [address] [place] [address] Gia Martínez MD Assigned OBGYN Provider 10/29/[address] [place], [place] [address] documented as of this encounter
--- OUTSIDE RECORDS SUMMARY | 2022-07-05 14:01 | XMS_ITS | Encounter Summary ---
:1985 Author Organization [place] Address [address] [place] [address]. [place] [address] Care Team Providers Name Role Phone [facility] Primary Care Provider [phone] Reason for Visit Auth/Cert - Closed Specialty Diagnoses / Procedures Referred By Contact Refer red To Contact Surgery Diagnoses Chronic Tonsilitis Rh Periop Services Procedures TONSILLECTOMY [address] [place], [place] [address] Phone: Fax: Referral ID Status Reason Start Date Expiration Date Visits Requ ested Visits Authorized [id number] Closed 1 1 Encounter Details Date Type Department Care Team Description 02/18/2013 Surgery [facility] Jacinta Loya MD Tonsillectomy PeriOp Services [facility] [address] [place] [address] [place], [place] [phone] (Wo rk) Surgery Details Date/Time Status Location OR Service Patient Case Case Traum a Class Class Type Case? 02/18/13 12:45 Posted [facility] OR OR 06 Otolaryngology Same Day PM Surgery Panel 1 Procedure LRB Anes Op Region Wound Class Commen ts Tonsillectomy Bilateral General Throat II-Clean Contaminated Tonsillectomy Surgeon Surgeon Role Service Panel Tomasz Loya MD Primary Otolaryngology 1 Special Needs 5'5 / 199 lb - per H&P. documented in [...] ML AT 2:10 PM TONSILLECTOMY DISCHARGE INSTRUCTIONS [facility] Chester Guzmna M.D. Phill Kahn M.D. Jeff Henry M.D. [...] It is best to stay in the [facility] area for the two week healing [...] have any problems or questions, please call [phone], 24 hours a day. GENERAL ANESTHESIA OR [...] Component Value Ref Test Analysis Performed At [facility] Range Method Time Signature Copath Report Patient Name: TRINITY AYALA MR#: [id number] Specimen #: [id number] Collected: 02/18/2013 Received: 02/18/2013 Reported: 02/19/2013 16:17 [...] serial sections, no gross lesions are identified. ??Lehr Tender section is submitted in one cassette. B. ??The specimen, labeled left tonsil, consists of formal in-fixed morin to pink to hemorrhagic soft palatine tonsil measuring 2.5 cm x 1.5 cm x 1 cm. ??On serial sections, no gross lesions are identified. Lehr Tender section is submitted in one cassette. ??MGP/s g MICROSCOPIC: A. and B. ??Microscopic examination is performed. SA/sg DT02-19-13 TESTING LAB LOCATION: [address], [place] ??[address] COLLECTION SITE: Client: [facility] Location: RHOR (R) Specimen Anatomical Collection Method Collection Time Receive d Time (Source) Location / / Volume Laterality 02/18/2013 1:15 PM 3 1:45 CDT PM CDT Tomasz Loya MD LAB - BEAKER AP Performing Organization Address City/State/ZIP Code Phon e Number COPATH HCG qualitative urine (02/18/2013 10:10 AM CDT) P athologist Signature HCG Qual Urine Negative NEG [facility] LAB Specimen Anatomical Collection Method Collection Time Receive d Time (Source) Location / / Volume Laterality Urine specimen URINE SPECIMEN / 02/18/2013 10:10 02/18 (specimen) Unknown AM CDT 10:23 AM CDT Allan Garrett MD LAB - URINE ORDERABLES Performing Organization Address City/State/ZIP [facility] Phon e Number [place] [address] [address] [place], [place] [address] [facility] LAB documented in this encounter [...] Intra-procedure documented in this encounter Care Teams Engine Service Repairer Relationship Specialty Start Date End Date [facility] PCP - General 02/04/13 06/15/13 documented as of this encounter
--- OUTSIDE RECORDS SUMMARY | 2022-07-05 14:01 | XMS_ITS | Encounter Summary ---
:1985 Author Organization [place] Address [address] [place] [address]. [place] [address] Care Team Providers Name Role Phone Unavailable Primary Care Provider Unavailable Encounter Details Date Type Department Care Team Description 11/10/2007 Emergency room Antonio Kirkpatrick [address] [place] [address] Social History Tobacco Use Types Packs/Day Years Used Date Never Assessed Sex Assigned at Date Recorded Not on file documented as of this encounter Progress Notes Interface, Cafe Operator - 11/11/2007 3:54 PM WET COTTON FEEDER FINAL CHIEF COMPLAINT: I had a seizure. HISTORY OF PRESENT ILLNESS: A 22-year-old female with history of seizure disorder presents with [facility] for evaluation of seizure. The patient states [...] MARIO#[id number] Name: TRINITY AYALA MRN: [id number] Account: [id number] : 1985 Visit Date: 11/10/2007 Document: [id number] cc: Eli INMAN COTTON FEEDER documented in this encounter Plan of Treatment Not on filedocumented as of this encounter Visit Diagnoses Not on filedocumented in this encounter
--- OUTSIDE RECORDS SUMMARY | 2022-07-05 14:01 | XMS_ITS | Encounter Summary ---
:1985 Author Organization [place] Address [address] [place] [address]. [place] [address] Care Team Providers Name Role Phone [facility] [phone] Reason for Visit Reason Comments Consult DIE MAKER ELECTRONIC (Emergency: 1-2 Days) - Pending Review Specialty Diagnoses / Procedures Referred By Contact Refer red To Contact jewelry estimator Diagnoses Abnormal ultrasound Shirley Pearson [facility] [address] [facility] [place] [address] [facility] [address] [place] [address],[facility] [address] [address] Phone: Fax: Referral ID Status Reason Start Date Expiration Date Visits V isits Requested Authorized [id number] Pending 10/25/2021 10/25/2022 1 1 Review Encounter Details Date Type Department Care Team Description 10/26/2021 Virtual Visit [facility] Milly Pearson [facility] [address] [place] [address] Known anomaly, Clinic Gia Umanzor MD [address] [place], [place] [address] antepartum, single or [address] unspecified fetus [place], [place] (Primary Dx) [phone] Social History Tobacco Use Types Packs/Day Years Used Date Never Smoker Alcohol Use Standard Drinks/Week Comments Yes 0 (1 standard drink = 0.6 oz pure alcoho l) occ Sex Assigned at Date Recorded Not on file COVID-19 Exposure Response Date Recorded In the last month, have you been in contact with No / Unsure 10/26/2021 1:52 PM SUPERVISOR SLASHING DEPARTMENT someone who was confirmed or suspected to [...] of her appointment to recommend level 2 [facility] ultrasound. They could fit her in today so she went to the ultrasound in lieu of clinic appointmentat [place]. I called her after her ultrasound with [facility] She and her are interested in [...] MD. Plan for induction of labor at [facility] on 10/28 at 9am. Will get COVID [...] and is interested in talking with a sr. social media & mobile manager tomorrow to help make arrangements ahead of time. She has questions about insurance coverage. I will have the hospital sr. social media & mobile manager reach out to her. I also gave her my flat ironer's phone number who may be able to help with coding questions. Phone call duration: 29min Gia Martínez MD [employer] documented in this encounter Plan of Treatment Scheduled Referrals Name Type Priority Associated Diagnoses Order S chedule Almond Pan Finisher Referral Referral Emergency: 1-2 Days Abnormal Ord ered: 10/25/2021 ultrasound documented as of this encounter Visit Diagnoses Diagnosis Known anomaly, antepartum, single or unspecified fetus - Primary documented in this encounter Care Teams Skilled Nursing Facilities Professional Relationship Specialty Start Date End Date [facility] PCP - General 09/05/17 [address] [place], [place] [phone] documented as of this encounter
--- OUTSIDE RECORDS SUMMARY | 2022-07-05 14:01 | XMS_ITS | Encounter Summary ---
:1985 Author Organization [place] Address [address] [place] [address]. [place] [address] Care Team Providers Name Role Phone [facility] Primary Care Provider [phone] Encounter Details Date Type Department Care Team Description 10/23/2021 Medical Correspondence [facility] Scan, MATERNAL Health Info Mgmt Non-Provider MEDICINE CE [facility] Srvcs PROVIDER SERVICE [address] [place] [address] [place] [address] [facility] [phone] AND CLINICS Social History Tobacco Use Types Packs/Day Years Used Date Never Smoker Alcohol Use Standard Drinks/Week Comments Yes 0 (1 standard drink = 0.6 oz pure alcoho l) occ Sex Assigned at Date Recorded Not on file documented as of this encounter Plan of Treatment Not on filedocumented as of this encounter Visit Diagnoses Not on filedocumented in this encounter Care Teams Marketing Summer Intern Relationship Specialty Start Date End Date [facility] Medical PCP - General 09/05/17 [address] [place] [address] documented as of this encounter
--- OUTSIDE RECORDS SUMMARY | 2022-07-05 14:01 | XMS_ITS | Encounter Summary ---
:1985 Author Organization [address] [place] [address] Care Team Providers Name Role Phone [facility] Primary Care Provider [phone] Ernestina Shah MD Unavailable Encounter Details Date Type Department Care Team Description 07/23/2018 Medical Correspondence [facility], [facility] PROVIDER Health Info Mgmt Non-Provider SERVICE REQ [facility] [address] [address] Social History Tobacco Use Types [...] filedocumented in this encounter Care Teams Manager Pest Relationship Specialty Start Date End Date [facility] PCP - General 09/05/17 [address] [address] [place], [place] [phone] Ernestina Shah MD MD Neurology 09/05/17 10/28/18 [facility] CLINIC OF NEUROLOGY [address] [facility] [address] [place] [address] documented as of this encounter
--- OUTSIDE RECORDS SUMMARY | 2022-07-05 14:01 | XMS_ITS | Encounter Summary ---
:1985 Author Organization [place] Address [address] [place] [address] Care Team Providers Name Role Phone Unavailable Primary Care Provider Unavailable Encounter Details Date Type Department Care Team Description 03/07/2007 Emergency room Jessika Kidd EMERGENCY PHYSIC [facility] [address] [facility] [place], [place] [phone] (Wo rk) Social History Tobacco Use Types Packs/Day Years Used Date Never Assessed Sex Assigned at Date Recorded Not on file documented as of this encounter Progress Notes Interface, Club Director - 05/02/2007 3:08 PM CDT FINAL CHIEF [...] appear grossly intact. No focal deficits. SKIN: [place], warm and dry. EMERGENCY DEPARTMENT COURSE: The [...] EM#[id number] Name: TRINITY AYALA MRN: [id number] Account: [id number] : 1985 Visit Date: 03/07/2007 Document: [id number] documented in this encounter Plan of Treatment Not on filedocumented as of this encounter Visit Diagnoses Not on filedocumented in this encounter
--- OUTSIDE RECORDS SUMMARY | 2022-07-05 14:01 | XMS_ITS | Encounter Summary ---
:1985 Author Organization [place] Address [address] [place] [address] Care Team Providers Name Role Phone Unavailable Primary Care Provider Unavailable Encounter Details Date Type Department Care Team Description 10/13/2007 Historic Results INTERFACED REPORT Tobi Kirkpatrick [address] [place] [address] Social History Tobacco Use Types Packs/Day Years Used Date Never Assessed Sex Assigned at Date Recorded Not on file documented as of this encounter Plan of Treatment Not on filedocumented as of this encounter Procedures Procedure Name Priority Date/Time Associated Comments Diagnosis HCG QUALITATIVE URINE STAT 10/13/2007 1:34 AM Results for this METAL STUD FRAMER procedure are i n the results section. ROUTINE UA WITH Routine 10/13/2007 1:34 AM Result s for this MICROSCOPIC METAL STUD FRAMER procedure are i n the results section. documented in this encounter Results HCG qualitative urine (10/13/2007 1:34 AM METAL STUD FRAMER) athologist Signature HCG Qual Urine Negative NEG [facility] Specimen Anatomical Collection Method Collection Time Receive d Time (Source) Location / / Volume Laterality 10/13/2007 1:34 AM 8 METAL STUD FRAMER 12:50 AM METAL STUD FRAMER Antonio Kirkpatrick LAB - URINE ORDERABLES Performing Organization Address City/State/ZIP Code Phon e Number [facility] (ABNORMAL) Routine UA with microscopic (10/13/2007 1:34 AM METAL STUD FRAMER) Component Value Ref Test Analysis Performed At [facility] gist Range Method Time Signature Source Unspecified [facility] Urine Color Urine Yellow [facility] Appearance Urine Slightly Cloudy [facility] Glucose Urine Negative NEG [facility] mg/dL Bilirubin Urine Negative NEG [facility]IS[facility] Ketones Urine Negative NEG [facility] mg/dL Specific [place] 1.035 1.003 - MISYS Urine 1.035 Blood [...] Volume Laterality 10/13/2007 1:34 AM 8 3:36 METAL STUD FRAMER AM METAL STUD FRAMER Antonio Kirkpatrick LAB - URINE ORDERABLES Performing Organization Address City/State/ZIP Code Phon e Number MISYS documented in this encounter Visit Diagnoses Not on filedocumented in this encounter
--- OUTSIDE RECORDS SUMMARY | 2022-07-05 14:01 | XMS_ITS | Encounter Summary ---
:1985 Author Organization [place] Address [address] [place] [address] Care Team Providers Name Role Phone Unavailable Primary Care Provider Unavailable Encounter Details Date Type Department Care Team Description 07/24/2007 Historic Results INTERFACED REPORT Joe Barton MD [facility] [address] [place], [place] [address] (Wo rk) Social History Tobacco Use Types [...] differential and platelet (07/24/2007 9:39 PM CDT) [employer] Method Time Signature MCV 88 78 - [...] (07/24/2007 9:39 PM CDT) [facility] Time Signature Levetiracetam 15.2 MISYS Level Comment: Unit: ug/ml (Note) EXPECTED [facility] TROUGH CONCENTRATI ONS IN PATIENTS RECEIVING RECOMMENDED DAILY DOS AGES: 5 - 45 ug/ml. TOXIC RANGE HAS NOT BEEN ESTABLISHED. Analysis performed by [employer], [facility] [place] [address] Specimen Anatomical Collection Method Collection Time Receive d Time (Source) Location / / Volume Laterality 07/24/2007 9:39 PM 7 CDT 11:46 PM CDT Markos Barton MD LAB - BLOOD ORDERABLES Performing Organization Address City/[facility] Phon e Number MISYS documented in this encounter Visit Diagnoses Not on filedocumented in this encounter
--- OUTSIDE RECORDS SUMMARY | 2022-07-05 14:01 | XMS_ITS | Encounter Summary ---
:1985 Author Organization [place] Address [address] [place] [address]. [place] [address] Care Team Providers Name Role Phone [facility] Primary Care Provider [phone] Ernestina Shah MD Unavailable Reason for Visit Reason Onset Date Comments Call To Schedule Appointment 09/01/2018 Encounter Details Date Type Department Care Team Description 09/01/2018 Telephone [facility] Louise Johnson Call T o Schedule Maternal Medicine Appo intment [place] [address] Social History Tobacco Use Types Packs/Day Years Used Date Never Smoker Alcohol Use Standard Drinks/Week Comments Yes 0 (1 standard drink = 0.6 oz pure alcoho l) occ Sex Assigned at Date Recorded Not on file documented as of this encounter Miscellaneous Notes Telephone Encounter - Louise Johnson - 09/01/2018 11:42 AM CST [facility] received a referral for patient and [facility] wanted to see her for a FTS appointment. Patient is now past FTS dates and has not returned [facility] calls. Orders for FTS removed. Will continue to try to schedule future appts. Louise Li Manager Equ[employer], JEREMY F EXECUTIVE documented in this encounter Plan of Treatment Not on filedocumented as of this encounter Visit Diagnoses Not on filedocumented in this encounter Care Teams Upholsterer Inside Relationship Specialty Start Date End Date [facility] PCP - General 09/05/17 [address] [place] [address] Ernestina Shah MD MD Neurology 09/05/17 10/28/18 [facility] CLINIC OF NEUROLOGY [facility] [address] [address] documented as of this encounter
--- OUTSIDE RECORDS SUMMARY | 2022-07-05 14:01 | XMS_ITS | Encounter Summary ---
:1985 Author Organization [place] Address [address] [place] [address]. 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 Toxic: ??Not well Establ ished Pharmacokinetics of levetiracetam are af fected by renal function. Adverse effects may include so mnolence, weakness, headache and vomiting. Performed by [facility], [address] [place] [address],[place] [address] [email or web address], Francisco Rubio MD, Lab. Director Specimen Anatomical Collection Method Collection Time Receive d Time (Source) Location / / Volume Laterality Blood specimen 01/16/2018 7:25 AM 018 7:31 (specimen) CDT AM CDT Eli Barnhart MD LAB - BLOOD ORDERABLES Performing Organization Address City/[facility] Code Phon e Number M [facility] [address] [place], [place] [address] [facility] [address] [place], [place] [address], [facility] [phone] Lamotrigine Level (01/16/2018 7:25 AM CDT) athologist Signature Lamotrigine 4.8 2.5 - 15.0 01/17/2018 [place] Level ug/mL 1:17 AM CDT [facility] Comment: (Note) INTERPRETIVE INFORMATION: ??Lamotrigine Therapeutic Range: ??2.5-15.0 ug/mL ? Toxic: ??Not well establ ished Pharmacokinetics varies widely, particul leon with co-medications and/or compromised renal function. ??Adverse effects may include dizziness, somnolenc e, nausea and vomiting. Performed by [facility], [address] [place] [id number] [email or web address], Francisco Rubio MD, Lab. Director Specimen Anatomical Collection Method Collection Time Receive d Time (Source) Location / / Volume Laterality Blood specimen 01/16/2018 7:25 AM 018 7:31 (specimen) CDT AM CDT Eli Barnhart MD LAB - BLOOD ORDERABLES Performing Organization Address City/State/ZIP Code Phon e Number M [facility] [address] [place], [place] [address] [facility] [address] [place], [place] [address], [facility] [phone] documented in this encounter Visit Diagnoses Diagnosis Nonintractable generalized idiopathic ep ilepsy with status epilepticus (H) - Primary Post-traumatic headache Post-traumatic headache, unspecified Injury, head, sequela Benign essential tremor Essential and other specified forms of t remor documented in this encounter Care Teams Corporate Development Manager Relationship Specialty Start Date End Date [place] PCP - General 09/05/17 [address] [place] [address] Ernestina Shah MD MD Neurology 09/05/17 10/28/18 [facility] CLINIC OF NEUROLOGY [address] [address] documented as of this encounter
--- OUTSIDE RECORDS SUMMARY | 2022-07-05 14:01 | XMS_ITS | Encounter Summary ---
:1985 Author Organization [place] Address [address] [place] [address] Care Team Providers Name Role Phone Unavailable Primary Care Provider Unavailable Encounter Details Date Type Department Care Team Description 09/04/[address] [facility] [place], Ernestina Nonintrac table [facility] Laboratory MD Adriana generalized idiopathic [address] [facility] OF epilepsy with status [place], [place] NEUROLOGY epilepticus (H) (Primary [phone] [address]) [phone] [place] [address] Social History Tobacco Use Types Packs/Day Years Used Date Never Smoker Alcohol Use Standard Drinks/Week Comments Yes 0 (1 standard drink = 0.6 oz pure alcoho l) occ Sex Assigned at Date Recorded Not on file documented as of this encounter Plan of Treatment Not on filedocumented as of this encounter Results (ABNORMAL) Keppra (Levetiracetam) Level (09/05/2017 7:19 AM GIS SOFTWARE ENGINEER) athologist Signature Keppra 2 (L) 12 - 46 09/06/2017 [facility] (Levetiracetam) ug/mL 3:44 AM [facility] Comment: (Note) INTERPRETIVE INFORMATION: Keppra (Leveti racetam) Therapeutic Range: ??12-46 ug/mL ? Toxic: ??Not well Establ ished Pharmacokinetics of levetiracetam are af fected by renal function. Adverse effects may include so mnolence, weakness, headache and vomiting. Performed by [employer], [address] [facility] [facility] [place] [phone] [email or web address], Francisco Rubio MD, Lab. Director Specimen Anatomical Collection Method Collection Time Receive d Time (Source) Location / / Volume Laterality Blood specimen 09/05/2017 7:19 AM 017 7:20 (specimen) GIS SOFTWARE ENGINEER AM GIS SOFTWARE ENGINEER Ernestina Shah MD LAB - BLOOD ORDERABLES Performing Organization Address City/[facility]/ZIP Code Phon e Number M [facility] [address] [place], [place] [address] [facility] [address] [place] [phone], [facility] [phone] Lamotrigine Level (09/05/2017 7:19 AM GIS SOFTWARE ENGINEER) athologist Signature Lamotrigine 5.1 2.5 - 15.0 09/06/2017 [place] Level ug/mL 3:44 AM [facility] Comment: (Note) INTERPRETIVE INFORMATION: ??Lamotrigine Therapeutic Range: ??2.5-15.0 ug/mL ? Toxic: ??Not well establ ished Pharmacokinetics varies widely, particul leon with co-medications and/or compromised renal function. ??Adverse effects may include dizziness, somnolenc e, nausea and vomiting. Performed by [employer], [address] [facility] [place] [address] [email or web address], Francisco Rubio MD, Lab. Director Specimen Anatomical Collection Method Collection Time Receive d Time (Source) Location / / Volume Laterality Blood specimen 09/05/2017 7:19 AM 017 7:20 (specimen) GIS SOFTWARE ENGINEER AM GIS SOFTWARE ENGINEER Ernestina Shah MD LAB - BLOOD ORDERABLES Performing Organization Address City/[facility]/ZIP Code Phon e Number M [facility] [address] [place], [place] [address] [facility] [address] [place] [phone], [facility] [phone] (ABNORMAL) Comprehensive metabolic panel (BMP + Alb, Alk Phos, ALT, AST, Total. Bili, TP) (09/05/2017 7:19 AM [facility]) athologist Signature Sodium 141 133 [...] 66 >60 09/05/2017 [facility] mL/min/1.7 7:[address] Comment: Non GFR Calc GFR Estimate If 80 >60 mL/min/1.7m2 09/05/2017 7:44 A M [facility] Comment: GFR Calc Calcium 8.9 8.5 - 10.1 mg/dL 09/05/2017 7:[address] [facility] Bilirubin Total 0.6 0.2 - 1.3 mg/dL 09/05/2017 7:44 AM [facility] Albumin 4.0 3.4 - 5.0 g/dL 09/05/2017 7:44 AM [facility] Protein Total 7.4 6.8 - 8.8 g/dL 09/05/2017 7:44 AM [facility] Alkaline Phosphatase 65 40 - 150 U/L 09/05/2017 7:44 AM [facility] ALT 16 0 - 50 U/L 09/05/2017 7:44 AM [facility] Jen [facility] AST 13 0 - 45 U/L 09/05/2017 7:44 AM [facility] Jen CHISH[place]M [facility] Specimen Anatomical Collection Method Collection Time Receive d Time (Source) Location / / Volume Laterality Blood specimen 09/05/2017 7:19 AM 017 7:20 (specimen) GIS SOFTWARE ENGINEER AM GIS SOFTWARE ENGINEER Ernestina Shah MD LAB - BLOOD ORDERABLES Performing Organization Address City/State/ZIP Code Phon e Number M [place] [address] [address] [place] [address] [phone] documented in this encounter Visit Diagnoses Diagnosis 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
--- OUTSIDE RECORDS SUMMARY | 2022-07-05 14:01 | XMS_ITS | Encounter Summary ---
:1985 Author Organization [place] Address [address] [place] [address] Care Team Providers Name Role Phone Unavailable Primary Care Provider Unavailable Encounter Details Date Type Department Care Team Description 07/24/2007 Results Only [facility] Markos Barton, Hospital Results MD EMERGENCY PHYSIC [facility] [address] [facility] [address] [place], [place] [address] (Wo rk) Social History Tobacco Use Types Packs/Day Years Used Date Never Assessed Sex Assigned at Date Recorded Not on file documented as of this encounter Plan of Treatment Not on filedocumented as of this encounter Procedures Procedure Name Priority Date/Time Associated Diagnosis Comme [facility] US ABDOMEN Routine 07/24/2007 10:49 PM [...]
--- OUTSIDE RECORDS SUMMARY | 2022-07-05 14:01 | XMS_ITS | Encounter Summary ---
:1985 Author Organization [place] Address [address] [place] [address] Care Team Providers Name Role Phone [facility] Primary Care Provider [phone] Ernestina Shah MD Unavailable Encounter Details Date Type Department Care Team Description 09/05/2017 Hospital Encounter [facility] Ernestina Shah Non intractable [facility] Laboratory MD Adriana generalized idiopathic [address] [facility] OF epilepsy wi th status Blvd NEUROLOGY epilepticus (H) [place], [place] [address] [address] [facility] [address] [place] [address] Social History Tobacco Use Types [...] 7:19 Nonintractable Resul ts for this AM ENGRAVER AUTOMATIC generalized idiopathic proce dure are in epilepsy with status the res ults epilepticus (H) section. KEPPRA Routine 09/05/2017 7:19 Nonintractable Results fo r this (LEVETIRACETAM) LEVEL AM ENGRAVER AUTOMATIC generalized idiopat hic procedure are in epilepsy with status the res ults epilepticus (H) section. COMPREHENSIVE Routine 09/05/2017 7:19 Nonintractable Results f or this METABOLIC PANEL AM ENGRAVER AUTOMATIC generalized idiopathic pr ocedure are in epilepsy with status the res ults epilepticus (H) section. documented in this encounter Results (ABNORMAL) Keppra (Levetiracetam) Level (09/05/2017 7:19 AM ENGRAVER AUTOMATIC) athologist Signature Keppra 2 (L) 12 - 46 09/06/2017 [facility] (Levetiracetam) ug/mL 3:44 AM [facility] Comment: (Note) INTERPRETIVE INFORMATION: Keppra (Leveti racetam) Therapeutic Range: ??12-46 ug/mL ? Toxic: ??Not well Establ ished Pharmacokinetics of levetiracetam are af fected by renal function. Adverse effects may include so mnolence, weakness, headache and vomiting. Performed by [facility] [employer], [address] [place] [id number] [email or web address], Francisco Rubio MD, Lab. Director Specimen Anatomical Collection Method Collection Time Receive d Time (Source) Location / / Volume Laterality Blood specimen 09/05/2017 7:19 AM 017 7:20 (specimen) ENGRAVER AUTOMATIC AM ENGRAVER AUTOMATIC Ernestina Shah MD LAB - BLOOD ORDERABLES Performing Organization Address [facility] Phon e Number [facility] [address] [place], [place] [address] [facility] [address] [place], [place] [address], [facility] [phone] Lamotrigine Level (09/05/2017 7:19 AM [facility]) athologist Signature Lamotrigine 5.1 2.5 - 15.0 09/06/2017 [facility] Level ug/mL 3:44 AM [facility] Comment: (Note) INTERPRETIVE INFORMATION: ??Lamotrigine Therapeutic Range: ??2.5-15.0 ug/mL ? Toxic: ??Not well establ ished Pharmacokinetics varies widely, particul leon with co-medications and/or compromised renal function. ??Adverse effects may include dizziness, somnolenc e, nausea and vomiting. Performed by [facility] [employer], [address] [place] [address] [email or web address], Francisco Rubio MD, Lab. Director Specimen Anatomical Collection Method Collection Time Receive d Time (Source) Location / / Volume Laterality Blood specimen 09/05/2017 7:19 AM 017 7:20 (specimen) ENGRAVER AUTOMATIC AM ENGRAVER AUTOMATIC Ernestina Shah MD LAB - BLOOD ORDERABLES Performing Organization Address [facility]/ZIP Code Phon e Number [facility] [address] [place], [place] [address] [facility] [address] [place] [address], [facility] [phone] (ABNORMAL) Comprehensive metabolic panel (BMP + Alb, Alk Phos, ALT, AST, Total. Bili, TP) (09/05/2017 7:19 AM [facility]) athologist Signature Sodium 141 133 - 144 09/05/2017 [facility] mmol/L 7:44 AM [facility] Potassium 3.7 3.4 - 5.3 09/05/2017 [facility] mmol/L 7:44 AM [facility] Chloride 114 (H) 94 - 109 09/05/2017 [facility] mmol/L 7:44 AM [facility] Carbon Dioxide 20 20 - 32 09/05/2017 [facility] mmol/L 7:44 AM [facility] Anion Gap 7 3 - 14 09/05/2017 [facility] mmol/L 7:44 AM [facility] Glucose 93 70 - 99 09/05/2017 [facility] mg/dL 7:44 AM [facility] Urea Nitrogen 13 7 - 30 09/05/2017 [facility] mg/dL 7:44 AM [facility] Creatinine 0.98 0.52 - 09/05/2017 [facility] 1.04 mg/dL 7:44 AM [facility] GFR Estimate 66 >60 09/05/2017 [facility] mL/min/1.7 7:[address] Comment: Non GFR Calc GFR Estimate If 80 >60 mL/min/1.7m2 09/05/2017 7:44 A [facility] Comment: GFR Calc Calcium 8.9 8.5 - 10.1 mg/dL 09/05/2017 7:44 AM [facility] Bilirubin Total 0.6 0.2 - 1.3 mg/dL 09/05/2017 7:[address] [facility] Albumin 4.0 3.4 - 5.0 g/dL 09/05/2017 7:[address] Protein Total 7.4 6.8 - 8.8 g/dL 09/05/2017 7:44 AM [facility] Alkaline Phosphatase 65 40 - 150 U/L 09/05/2017 7:[address] [facility] ALT 16 0 - 50 U/L 09/05/2017 7:44 AM [facility] Jen [facility] AST 13 0 - 45 U/L 09/05/2017 7:44 AM [facility] Specimen Anatomical Collection Method Collection Time Receive d Time (Source) Location / / Volume Laterality Blood specimen 09/05/2017 7:19 AM 017 7:20 (specimen) ENGRAVER AUTOMATIC AM ENGRAVER AUTOMATIC Ernestina Shah MD LAB - BLOOD ORDERABLES Performing Organization Address City/State/ZIP Code Phon e Number M [facility] [address] [place], [place] [address] [facility] [address] [place], [place] [address] [facility] [phone] documented in this encounter Visit Diagnoses Diagnosis Nonintractable generalized idiopathic ep ilepsy with status epilepticus (H) documented in this encounter Care Teams K 9 Handler/ Deputy Relationship Specialty Start Date End Date [facility] PCP - General 09/05/17 [address] [address] [place], [place] [phone] Ernestina Shah MD MD Neurology 09/05/17 10/28/18 [facility] OF NEUROLOGY [address] [facility] [address] [place] [address] documented as of this encounter
--- OUTSIDE RECORDS SUMMARY | 2022-07-05 14:01 | XMS_ITS | Encounter Summary ---
:1985 Author Organization [place] Address [address] [place] [address] Care Team Providers Name Role Phone Unavailable Primary Care Provider Unavailable Encounter Details Date Type Department Care Team Description 07/24/2007 Emergency room Melisa Barton MD EMERGENCY PHYSIC VIGNESH INMAN [address] [facility] [address] [place], [place] [address] (Wo rk) Social History Tobacco Use Types [...] MARIO#[id number] Name: TRINITY AYALA MRN: [id number] Account: [id number] : 1985 Visit Date: 07/24/2007 Document: [id number] documented in this encounter Plan of Treatment Not on filedocumented as of this encounter Visit Diagnoses Not on filedocumented in this encounter
--- OUTSIDE RECORDS SUMMARY | 2022-07-05 14:01 | XMS_ITS | Encounter Summary ---
:1985 Author Organization [place] Address [address] [place] [address] Care Team Providers Name Role Phone Unavailable Primary Care Provider Unavailable Reason for Visit Reason Comments Eye Problem Dizziness Encounter Details Date Type Department Care Team Description 06/16/2013 [facility] MD Minor Headache [address] [facility] EMERGENCY PHYS[facility] [phone] [employer] [phone] ALEJANDRA [address] [place], [place] [address] (Wo rk) Social History Tobacco Use Types [...] Anderson in 3-5 days if not improving. [place] should call you if seizure medication levels [...] as directed by your healthcare provider ?? [phone], [place] [address]. All rights reserved. This information is not [...] her Keppra, so she was seen at [facility] where they edinson her Keppra [...] History: Seizures Genital herpes Past Surgical History: [place] teeth removed Tonsillectomy Family/Social History: The patient [...] Course ECG @ 8:10 Rate 57 bpm. ID interval 146 ms. QRS duration 80 ms. [...] The patient was placed on continuous cardiac sonographer and pulse oximetry. IV was inserted and [...] for discharge to home. We will contact [facility] concerning her seizure drug levels. I have a low suspicion for cardiac etiology or significant cranial etiology. Patient and mother are comfortable with this plan. Pt improved with interventions in ER, labs unremarkable including carbon monoxide, ecg with no ischemia or malignant arrhythmia. [facility] stated labs still pending. Pt [...] Carbon Monoxide 1.2 0 - 2 % [facility] Specimen Anatomical Collection Method Collection Time Receive d Time (Source) Location / / Volume Laterality Blood specimen 06/16/2013 8:55 AM 013 8:56 (specimen) CDT AM CDT Monroe Duncan MD LAB - BLOOD ORDERABLES Performing Organization Address City/State/ZIP Code Phon e Number [place] [address] [address] [place], [place] [phone] [place] [address] LAB HCG qualitative urine (06/16/2013 8:34 AM CDT) P athologist Signature HCG Qual Urine Negative NEG [facility] Specimen Anatomical Collection Method Collection Time Receive d Time (Source) Location / / Volume Laterality Urine specimen 06/16/2013 8:34 AM 013 8:38 (specimen) CDT AM CDT Monroe Duncan MD LAB - URINE ORDERABLES Performing Organization Address City/[facility] Phon e Number [place] [address] [address] [place], [place] [address] [phone] [place] [address] LAB (ABNORMAL) UA with Microscopic (06/16/2013 8:34 AM CDT) Patholo gist Method Time Signature Color Urine Yellow [facility] Appearance Urine Slightly [place] Cloudy [facility] Glucose Urine Negative NEG mg/dL [facility] Bilirubin Urine Negative NEG [facility] Ketones Urine Negative NEG mg/dL [facility] Specific [place] 1.019 1.003 - [place] Urine 1.035 [facility] Blood Urine Small (A) NEG [facility] pH Urine 6.0 5.0 - 7.0 [place] pH [facility] Protein Albumin 10 (A) NEG mg/dL [facility] Urobilinogen Normal 0.0 - 2.0 [place] mg/dL mg/dL [facility] Nitrite Urine Negative NEG [facility] Leukocyte Small (A) NEG [place] Esterase Urine [facility] Source Midstream [place] Urine [facility] WBC Urine 2 0 - 2 [facility] RBC Urine 1 0 - 2 [facility] Squamous 8 (H) 0 - 1 [place] Epithelial /HPF /HPF [facility] Transitional Epi <1 0 - 1 [facility] Mucous Urine Present (A) NEG /LPF [facility] Specimen Anatomical Collection Method Collection Time Receive d Time (Source) Location / / Volume Laterality Urine specimen 06/16/2013 8:34 AM 013 8:38 (specimen) CDT AM CDT Monroe Duncan MD LAB - URINE ORDERABLES Performing Organization Address City/[facility] Code Phon demetria Jeffery [facility] [address] [place], [place] [address] [facility] (ABNORMAL) Basic metabolic panel (BMP) (06/16/2013 8:12 AM CDT) Analysis Performed At Patho logist Time Signature Sodium 145 (H) 133 - 144 [place] mmol/L [facility] Potassium 3.7 3.4 - 5.3 [place] mmol/L [facility] Chloride 110 (H) 94 - 109 [place] mmol/L [facility] Carbon Dioxide 21 20 - 32 [place] mmol/L [facility] Anion Gap 14 6 - 17 [place] mmol/L [facility] Glucose 85 60 - 99 [place] mg/dL [facility] Urea Nitrogen 12 5 - 24 [place] mg/dL [facility] Creatinine 1.10 (H) 0.52 - [facility] 1.04 mg/dL [facility] GFR Estimate 61 >60 [place] mL/min/1.[address] LAB GFR Estimate If 73 >60 [place] Black mL/min/1.[address] [place] [address] LAB Calcium 9.1 8.5 - 10.4 [place] mg/dL [facility] Specimen Anatomical Collection Method Collection Time Receive d Time (Source) Location / / Volume Laterality Blood specimen 06/16/2013 8:12 AM 013 8:15 (specimen) CDT AM CDT Monroe Duncan MD LAB - BLOOD ORDERABLES Performing Organization Address [facility]/ZIP [facility] Phon e Jose D [facility] [address] [place], [place] [address] [facility] CBC (platelets, no diff) (06/16/2013 8:12 AM CDT) P athologist Signature WBC 5.2 4.0 - 11.0 [place] 10e9/L [facility] RBC Count 4.27 3.8 - 5.2 [place] 10e12/L [facility] Hemoglobin 12.7 11.7 - [place] 15.7 g/dL [facility] Hematocrit 39.6 35.0 - [place] 47.0 % [facility] MCV 93 78 - 100 [place] fl [facility] MCH 29.7 26.5 - [place] 33.0 pg [facility] MCHC 32.1 31.5 - [place] 36.5 g/dL [facility] RDW 13.7 10.0 - [place] 15.0 % [facility] Platelet Count 272 150 - [address] LAB Specimen Anatomical Collection Method Collection Time Receive d Time (Source) Location / / Volume Laterality Blood specimen 06/16/2013 8:12 AM 013 8:15 (specimen) CDT AM CDT Monroe Duncan MD LAB - BLOOD ORDERABLES Performing Organization Address City/State/ZIP Code Phon e Number [place] [address] [facility] EKG 12 lead (06/16/2013 8:10 AM [...]
--- OUTSIDE RECORDS SUMMARY | 2022-07-05 14:02 | XMS_ITS | Encounter Summary ---
:1985 Author Organization [facility] Address [address] [place] [address] Care Team Providers Name Role Phone Unavailable Primary Care Provider Unavailable Encounter Details Date Type Department Care Team Description 08/07/2021 Clinical Communication Department of Neurology Rui Godinez, in Navya Bose M.D., M.P.H. [address] [place] [address] [place], [place] [phone] [address] Social History Tobacco Use Types Packs/Day [...] do you attend caodaism or Never 2021 holiness services? Do you [...] slept in a care home (including now)? Education Answer Date Recorded What is the highest level of school Associate degree: gómez wyatt, 10/10/2020 you have completed or the highest technical, or vocational p natan degree you have received? Sex Assigned at Date Recorded Female 02/02/2019 3:06 PM CDT documented as of this encounter Miscellaneous Notes Telephone Encounter - Sally Wallis L.P.N. - 09/05/2021 8:42 AM MIX HOUSE TENDER Portal message sent. HOUSE TENDER Telephone Encounter - Sally Wallis L.P.N. - 08/16/2021 2:10 PM MIX HOUSE TENDER Message left to return call. HOUSE TENDER Telephone Encounter - Sally Wallis L.P.N. - [...]
--- OUTSIDE RECORDS SUMMARY | 2022-07-05 14:02 | XMS_ITS | Encounter Summary ---
:1985 Author Organization [place] Address [address] [place] [address]. [place] [address] Care Team Providers Name Role Phone Unavailable Primary Care Provider Unavailable Encounter Details Date Type Department Care Team Description 10/12/2006 Historic Results INTERFACED REPORT Wander Arguello MD [address] [place] [phone] Social History Tobacco Use Types Packs/Day Years Used Date Never Assessed Sex Assigned at Date Recorded Not on file documented as of this encounter Plan of Treatment Not on filedocumented as of this encounter Procedures Procedure Name Priority Date/Time Associated Comments Diagnosis HEMOGRAM DIFFERENTIAL STAT 10/12/2006 8:45 AM Results for this AND PLATELET CHRONIC DISEASE MANAGER procedure are i n the results section. HCG QUALITATIVE STAT 10/12/2006 8:45 AM Result s for this CHRONIC DISEASE MANAGER procedure are i n the results section. BASIC METABOLIC PANEL STAT 10/12/2006 8:45 AM Results for this CHRONIC DISEASE MANAGER procedure are i n the results section. documented in this encounter Results (ABNORMAL) Hemogram differential and platelet (10/12/2006 8:45 AM CHRONIC DISEASE MANAGER) [facility] Method Time Signature MCV 89 78 - [...] Volume Laterality 10/12/2006 8:45 AM 7 8:34 CHRONIC DISEASE MANAGER AM CHRONIC DISEASE MANAGER Wander Arguello MD LAB - BLOOD ORDERABLES Performing Organization Address City/State/ZIP Code Phon e Number [facility] Basic metabolic panel (10/12/2006 8:45 AM CHRONIC DISEASE MANAGER) P athologist Signature Sodium 137 133 - [...] Volume Laterality 10/12/2006 8:45 AM 7 8:34 CHRONIC DISEASE MANAGER AM CHRONIC DISEASE MANAGER Wander Arguello MD LAB - BLOOD ORDERABLES Performing Organization Address City/State/[facility] Code Phon e Number [facility] HCG qualitative (10/12/2006 8:45 AM CHRONIC DISEASE MANAGER) [facility] gist Method Time Signature HCG Qualitative Negative NEG [facility] Serum Specimen Anatomical Collection Method Collection Time Receive d Time (Source) Location / / Volume Laterality 10/12/2006 8:45 AM 7 8:34 CHRONIC DISEASE MANAGER AM CHRONIC DISEASE MANAGER Wander Arguello MD LAB - BLOOD ORDERABLES Performing Organization Address City/State/ZIP [facility] Phon e Number [facility] documented in this encounter Visit Diagnoses Not on filedocumented in this encounter
--- OUTSIDE RECORDS SUMMARY | 2022-07-05 14:02 | XMS_ITS | Encounter Summary ---
:1985 Author Organization [facility] Address [address] [place] [address] Care Team Providers Name Role Phone Unavailable Primary Care Provider Unavailable Reason for Visit Reason Comments Med Refill Encounter Details Date Type Department Care Team Description 10/13/2021 Refill Department of Neurology in Rui Godinez M.D., Med Refill [place], [place] M.P.H. [address] [place] [address] [address] [place] [address] [phone] (Wo rk) Social History Tobacco Use Types [...] or relatives? How often do you attend adventist or Never 2021 buddhism services? Do you belong to any clubs or No 11/08/2021 organizations such as adventist groups, unions, fraternal or athletic groups, or [...] Karina Amanda M.D. - 10/16/2021 9:43 AM ACO COORDINATOR I approved short term refills. Pt has only seen Neurology in our clinic. I will defer to your team for longer term refills or have her set up PCP in [place]. COORDINATOR documented in this encounter Plan of Treatment Not on filedocumented as of this encounter Visit Diagnoses Not on filedocumented in this encounter
--- OUTSIDE RECORDS SUMMARY | 2022-07-05 14:02 | XMS_ITS | Encounter Summary ---
:1985 Author Organization [facility] Address [address] [place] [address] Care Team Providers Name Role Phone Unavailable Primary Care Provider Unavailable Encounter Details Date Type Department Care Team Description 02/01/2021 Orders Only [facility] PCP TH Sa rima Valentin M.D. [address] [place], [place] [phone] (Wo rk) Social History [...] do you attend sikh or Never 2021 anabaptist services? Do you belong to any clubs [...]
--- OUTSIDE RECORDS SUMMARY | 2022-07-05 14:02 | XMS_ITS | Encounter Summary ---
:1985 Author Organization [facility] Address [address] [place] [address] Care Team Providers Name Role Phone Unavailable Primary Care Provider Unavailable Encounter Details Date Type Department Care Team Description 03/29/2022 Orders Only Department of Sleep Rui Godinez Foca l Complex Partial Medicine in Karyn Poon, M.P .H. Epilepsy Not [place] [address] Intractable Without [address] [place], [place] Status Epilepticus [place] [phone] ([facility]) (Primary Dx) [phone] Social History Tobacco Use [...] or relatives? How often do you attend alevism or Never 2021 congregational services? Do you belong to any clubs or No 11/08/2021 organizations such as alevism groups, unions, fraternal or athletic groups, or [...]
--- OUTSIDE RECORDS SUMMARY | 2022-07-05 14:02 | XMS_ITS | Encounter Summary ---
:1985 Author Organization [place] Address [address] [place] [address] Care Team Providers Name Role Phone Unavailable Primary Care Provider Unavailable Encounter Details Date Type Department Care Team Description 09/25/2004 Results Only [facility] Results Saad Dominique MD [place] [address] Social History Tobacco Use Types Packs/Day Years Used Date Never Assessed Sex Assigned at Date Recorded Not on file documented as of this encounter Plan of Treatment Not on filedocumented as of this encounter Procedures Procedure Name Priority Date/Time Associated Diagnosis Comme nts HC CT ABDOMEN W/O Routine 09/25/2004 5:23 AM Resu lts for this CONTRAST MONUMENT SETTER procedure are i n the results section. documented in this encounter Results CT SCAN ABDOMEN (09/25/2004 5:23 AM MONUMENT SETTER) Specimen (Source) Anatomical Collection Method Collection Time Re ceived Time Location / / Volume Laterality 09/25/2004 5:23 AM MONUMENT SETTER Impressions Pacs, Data Conversion - 10/06/2004 2:[address] ABDOMEN & PELVIS WITHOUT CONTRAST - [...]
--- OUTSIDE RECORDS SUMMARY | 2022-07-05 14:02 | XMS_ITS | Encounter Summary ---
:1985 Author Organization [place] Address [address] [place] [address] Care Team Providers Name Role Phone Unavailable Primary Care Provider Unavailable Encounter Details Date Type Department Care Team Description 10/12/2006 Results Only [facility] Wander Arguello MD Hospital Results [address] [place] [phone] Social History Tobacco Use Types Packs/Day Years Used Date Never Assessed Sex Assigned at Date Recorded Not on file documented as of this encounter Plan of Treatment Not on filedocumented as of this encounter Procedures Procedure Name Priority Date/Time Associated Diagnosis Comme nts HC CT HEAD WO Routine 10/12/2006 8:56 AM Results for this CONTRAST MILK TESTER procedure are i n the results section. documented in this encounter Results CT SCAN HEAD/BRAIN (10/12/2006 8:56 AM MILK TESTER) Specimen (Source) Anatomical Collection Method Collection Time Re ceived Time Location / / Volume Laterality 10/12/2006 8:56 AM MILK TESTER Impressions RADIOLOGY RESULTS - 10/12/2006 9:04 AM [...]
--- OUTSIDE RECORDS SUMMARY | 2022-07-05 14:02 | XMS_ITS | Encounter Summary ---
:1985 Author Organization [facility] Address [address] [place] [address] Care Team Providers Name Role Phone Unavailable Primary Care Provider Unavailable Encounter Details Date Type Department Care Team Description 11/08/2006 Historic Results INTERFACED REPORT Salome Cornejo cas, MD EMERGENCY PHYSIC VIGNESH INMAN [address] [place] [address] (Wo rk) Social History Tobacco Use Types Packs/Day Years Used Date Never Assessed Sex Assigned at Date Recorded Not on file documented as of this encounter Plan of Treatment Not on filedocumented as of this encounter Procedures Procedure Name Priority Date/Time Associated Comments Diagnosis HEMOGRAM DIFFERENTIAL STAT 11/08/2006 11:36 Re sults for this AND PLATELET PM EVENTS ASSOCIATE procedure are i n the results section. LEVETIRACETAM LEVEL STAT 11/08/2006 11:36 Resu lts for this PM EVENTS ASSOCIATE procedure are i n the results section. BASIC METABOLIC PANEL STAT 11/08/2006 11:36 Re sults for this PM EVENTS ASSOCIATE procedure are i n the results section. ROUTINE UA WITH STAT 11/08/2006 11:29 Results for this MICROSCOPIC PM EVENTS ASSOCIATE procedure are i n the results section. documented in this encounter Results Hemogram differential and platelet (11/08/2006 11:36 PM EVENTS ASSOCIATE) [facility] Method Time Signature MCV 88 78 [...] / Volume Laterality 11/08/2006 11:36 11/08/2006 PM EVENTS ASSOCIATE 11:16 PM EVENTS ASSOCIATE Palomo Cornejo MD LAB - BLOOD ORDERABLES Performing Organization Address City/State/ZIP Code Phon e Number MISYS (ABNORMAL) Basic metabolic panel (11/08/2006 11:36 PM EVENTS ASSOCIATE) P athologist Signature Sodium 137 133 - [...] / Volume Laterality 11/08/2006 11:36 11/08/2006 PM EVENTS ASSOCIATE 11:16 PM EVENTS ASSOCIATE Palomo Cornejo MD LAB - BLOOD ORDERABLES Performing Organization Address City/[facility]/ZIP Code Phon e Number MISYS Levetiracetam level (11/08/2006 11:36 PM EVENTS ASSOCIATE) [facility] Signature Levetiracetam <2.0 MISYS Level Comment: Unit: ug/ml (Note) EXPECTED STEADY STATE TROUGH CONCENTRATI ONS IN PATIENTS RECEIVING RECOMMENDED DAILY DOS AGES: 5 - 45 ug/ml. TOXIC RANGE HAS NOT BEEN ESTABLISHED. Analysis performed by [employer] [place] [address] Specimen Anatomical Collection Method Collection Time Receive d Time (Source) Location / / Volume Laterality 11/08/2006 11:36 11/08/2006 PM EVENTS ASSOCIATE 11:16 PM EVENTS ASSOCIATE Palomo Cornejo MD LAB - BLOOD ORDERABLES Performing Organization Address [facility] Phon e Number MISYS (ABNORMAL) Routine UA with microscopic (11/08/2006 11:29 PM EVENTS ASSOCIATE) [facility] gist Method Time Signature Source Midstream MISYS Urine Color Urine Yellow MISYS Appearance Urine Clear MISYS Glucose Urine Negative NEG mg/dL MISYS Bilirubin Urine Negative NEG MISYS Ketones Urine Negative NEG mg/dL MISYS Specific [place] 1.019 1.003 - MISYS Urine 1.035 Blood [...] / Volume Laterality 11/08/2006 11:29 11/08/2006 PM EVENTS ASSOCIATE 11:16 PM EVENTS ASSOCIATE Palomo Cornejo MD LAB - URINE ORDERABLES Performing Organization Address City/State/ZIP Code Phon e Number MISYS documented in this encounter Visit Diagnoses Not on filedocumented in this encounter
--- OUTSIDE RECORDS SUMMARY | 2022-07-05 14:02 | XMS_ITS | Encounter Summary ---
:1985 Author Organization [facility] Address [address] [place] [address] Care Team Providers Name Role Phone Unavailable Primary Care Provider Unavailable Reason for Visit Reason Comments Med Refill Encounter Details Date Type Department Care Team Description 08/08/2021 Refill Department of Neurology in Rui Godinez M.D., Med Refill [place], [place] M.P.H. [address] [place] [address] [address] [place] [address] [phone] (Wo rk) Social History Tobacco Use Types [...] do you attend druze or Never 2021 mormonism services? Do you belong to any clubs [...]
--- OUTSIDE RECORDS SUMMARY | 2022-07-05 14:02 | XMS_ITS | Encounter Summary ---
:1985 Author Organization [facility] Address [address] [place] [address] Care Team Providers Name Role Phone Unavailable Primary Care Provider Unavailable Reason for Visit Reason Comments Med Refill Encounter Details Date Type Department Care Team Description 05/08/2021 Refill Department of Neurology in Rui Godinez M.D., Med Refill [place], [place] M.P.H. [address] [place] [address] [address] [place] [address] [phone] (Wo rk) Social History Tobacco Use Types [...] do you attend evangelical or Never 2021 scientology services? Do you [...]
--- OUTSIDE RECORDS SUMMARY | 2022-07-05 14:02 | XMS_ITS | Encounter Summary ---
:1985 Author Organization [facility] Address [address] [place] [address] Care Team Providers Name Role Phone Unavailable Primary Care Provider Unavailable Encounter Details Date Type Department Care Team Description 10/12/2006 Historic Results INTERFACED REPORT Wander Arguello MD [address] [place] [phone] Social History Tobacco Use Types Packs/Day Years Used Date Never Assessed Sex Assigned at Date Recorded Not on file documented as of this encounter Plan of Treatment Not on filedocumented as of this encounter Procedures Procedure Name Priority Date/Time Associated Diagnosis Comme nts EKG 12 LEAD Routine 10/12/2006 8:37 AM Results f or this MOLD INSERT CHANGER procedure are i n the results section . documented in this encounter Results EKG 12 LEAD (10/12/2006 8:37 AM MOLD INSERT CHANGER) Component Value Ref Range Test Analysis Performed Pathologis t Method Time At Signature Ventricular Rate 83 BPM RADIOLOGY RESULTS Atrial Rate 83 BPM RADIOLOGY RESULTS NC Interval 158 ms RADIOLOGY RESULTS QRS Duration 82 ms RADIOLOGY RESULTS QT 340 ms RADIOLOGY RESULTS QTc 399 ms RADIOLOGY RESULTS P [place] 54 degrees RADIOLOGY RESULTS R AXIS 48 degrees RADIOLOGY RESULTS T [place] 20 degrees RADIOLOGY RESULTS Interpretation Poor data [...] Volume Laterality 10/12/2006 8:37 AM 7 8:34 MOLD INSERT CHANGER AM MOLD INSERT CHANGER Wander Arguello MD ECG ORDERABLES Performing Organization Address City/State/ZIP Code Phon e Number RADIOLOGY RESULTS documented in this encounter Visit Diagnoses Not on filedocumented in this encounter
--- OUTSIDE RECORDS SUMMARY | 2022-07-05 14:02 | XMS_ITS | Encounter Summary ---
:1985 Author Organization [facility] Address [address] [place] [address]. [place] [address] Care Team Providers Name Role Phone Unavailable Primary Care Provider Unavailable Encounter Details Date Type Department Care Team Description 07/29/2005 Emergency room Adrienne Luong MD SKIN REJUVENATIO [facility] [address] [facility] [address] [place] [address] (Wo rk) Social History Tobacco [...] HECTOR Name: TRINITY AYALA MRN: [id number] Account: [id number] : 1985 Visit Date: 07/29/2005 Document: [id number] documented in this encounter Plan of Treatment Not on filedocumented as of this encounter Visit Diagnoses Not on filedocumented in this encounter
--- OUTSIDE RECORDS SUMMARY | 2022-07-05 14:02 | XMS_ITS | Encounter Summary ---
:1985 Author Organization [facility] Address [address] [place] [address] Care Team Providers Name Role Phone Unavailable Primary Care Provider Unavailable Encounter Details Date Type Department Care Team Description 11/08/2006 Emergency room Spike Quispe MD EMERGENCY PHYSIC VIGN[facility] INMAN [address] [place], [place] [phone] (Wo rk) Social History Tobacco Use Types Packs/Day Years Used Date Never Assessed Sex Assigned at Date Recorded Not on file documented as of this encounter Progress Notes Spike Quispe - 11/11/2006 2:21 AM CONVEX GRINDER OPERATOR FINAL CHIEF COMPLAINT: Possible seizure. HISTORY [...] was able get the MRI report from [facility] that was done earlier today. This showed [...] MARIO#[id number] Name: TRINITY AYALA MRN: [id number] Account: [id number] : 1985 Visit Date: 11/08/2006 Document: [id number] EX GRINDER OPERATOR documented in this encounter Plan of Treatment Not on filedocumented as of this encounter Visit Diagnoses Not on filedocumented in this encounter
--- OUTSIDE RECORDS SUMMARY | 2022-07-05 14:02 | XMS_ITS | Encounter Summary ---
:1985 Author Organization [facility] Address [address] [place] [address] Care Team Providers Name Role Phone Unavailable Primary Care Provider Unavailable Encounter Details Date Type Department Care Team Description 04/12/2005 Results Only [facility] Results EMERGENCY PHYSI CELIO INMAN [address] [place] [address] (Wo rk) Social History [...]
--- OUTSIDE RECORDS SUMMARY | 2022-07-05 14:02 | XMS_ITS | Encounter Summary ---
:1985 Author Organization [facility] Address [address] [place] [address] Care Team Providers Name Role Phone Unavailable Primary Care Provider Unavailable Encounter Details Date Type Department Care Team Description 09/25/2004 Emergency room Armando Dominique [place] [address] Social History Tobacco Use Types Packs/Day Years Used Date Never Assessed Sex Assigned at Date Recorded Not on file documented as of this encounter ED Notes Armando Dominique - 09/25/2004 12:00 AM LAMP DEVELOPER : 1985 CHIEF COMPLAINT: Abdominal pain. HISTORY [...] should be reviewed with the Sherita Gonzalez glass cutting machine feeder by Monday, September 27, 2004. The patient is to contact Dr. Gonzáles sooner if she redevelops abdominal pain, with or without fever or vomiting. 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 [id number] ARMANDO DOMINIQUE MD MT: Document: [id number] [place], [place] Name: MR#: TRINITY RAMIREZ -[id number] EMERGENCY ROOM ENCOUNTER Page 3 of 2 LCN: ROSE DSC: 09/25/2004 [place], [place] Name: MR#: TRINITY RAMIREZ -[id number] : Admit Date: Account #: 1985 09/25/2004 [id number] Doctor: ARMANDO DOMINIQUE MD EMERGENCY ROOM ENCOUNTER Page 1 of 2 documented in this encounter Plan of Treatment Not on filedocumented as of this encounter Visit Diagnoses Not on filedocumented in this encounter
--- OUTSIDE RECORDS SUMMARY | 2022-07-05 14:02 | XMS_ITS | Clinical Summary ---
:1985 Author Organization [facility] Address [address] [place] [address] Care Team Providers Name Role Phone Unavailable Primary Care Provider Unavailable Source Comments Patient records contain information from all sites at [facility]. For routine questions regarding patient records, call [phone] during business hours, M-F 8:00 AM - 5:00 PM Central Time. Record requests for emergency care only can be directed to [phone] at any time.[facility] Allergies No known active allergies Medications Medication [...] Estimated Date of Delivery Comments Yes 02/28/2019 Social History Tobacco Use Types Packs/Day Years [...] you attend roman catholic or Never 2021 sabianist services? Do you [...] Comments Blood Pressure 116/74 08/25/2019 2:01 PM CIRCLE EDGER Pulse 76 08/25/2019 2:01 PM CIRCLE EDGER Temperature - - Respiratory Rate - - Oxygen Saturation - - Inhaled Oxygen Concentration - - Weight 84.2 kg (185 lb 10 oz) 08/25/2019 2:01 PM CIRCLE EDGER Height - - Body Mass Index - - Plan of Treatment Health Maintenance Due Date Last Done Comments Cervical Cancer Screening 1985 Creatinine Level 1985 HIV Screening 1985 Hepatitis B Vaccines (1 of 1987 3 - 3-dose series) Hepatitis C Screening 1985 Potassium Level 1985 Sodium Level 1985 COVID-19 Vaccine (3 - 06/09/2021 04/14/2021, 03/24/2021 Booster for Pfizer series) Depression [...] Phone Addre ss Type Group BLUE CROSS ANTHEM BLUE [id number] 2018-Manuel [phone] PO KAREN X [id number] PPO [facility] ACCESS t [address] [place] [address]
--- OUTSIDE RECORDS SUMMARY | 2022-07-05 14:02 | XMS_ITS | Encounter Summary ---
:1985 Author Organization [facility] Address [address] [place] [address]. [place] [address] Care Team Providers Name Role Phone Unavailable Primary Care Provider Unavailable Encounter Details Date Type Department Care Team Description 04/12/2005 Emergency room Doron Sargent EMERGENCY PHYSIC VIGNESH INMAN [address] [place] [address] (Wo rk) Social History Tobacco Use Types Packs/Day Years Used Date Never Assessed Sex Assigned at Date Recorded Not on file documented as of this encounter Progress Notes Interface, Airline Pilot Flight Instructor - 04/12/2005 11:59 PM CDT : [birth year] CHIEF COMPLAINT: Left foot pain. 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 [id number] JOJO SARGENT MD MT: Document: [id number] [place], [place] Name: MR#: TRINITY AYALA [id number] EMERGENCY ROOM ENCOUNTER Page 2 of 2 LCN: ERC DSC: 04/12/2005 [place], [place] Name: MR#: TRINITY AYALA -[id number] : Admit Date: Account #: 1985 04/12/2005 [id number] Doctor: JOJO SARGENT MD EMERGENCY ROOM ENCOUNTER Page 1 of 2 documented in this encounter Plan of Treatment Not on filedocumented as of this encounter Visit Diagnoses Not on filedocumented in this encounter
--- OUTSIDE RECORDS SUMMARY | 2022-07-05 14:02 | XMS_ITS | Encounter Summary ---
:1985 Author Organization [facility] Address [address] [place] [address] Care Team Providers Name Role Phone Unavailable Primary Care Provider Unavailable Reason for Referral Outpatient (Routine) - Authorized Specialty Diagnoses / Procedures Referred By Contact Refer red To Contact Neurology Rui Godinez M.D ., M.P.H. 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 [address] [place] [address] Referral ID Status Reason Start Date Expiration Date Visits Requ ested Visits Authorized [id number] Closed 10/10/2020 10/10/2021 1 1 Encounter Details Date Type Department Care Team Description 11/08/2021 Telemedicine Department of Rui Godinez, Focal Comp tripp Partial Neurology in [place]aryn, M.P.H. Epilepsy Not [place], [place] [address] [place] [address] Intractable Without [address] [place], [place] [address] (HCC) [address] Social History Tobacco Use Types [...] do you attend yazdanism or Never 2021 hinduism services? Do you belong to any clubs [...] technology by Rui Godinez M.D., M.P.H. from [facility] to the patient in their home. [...] Simpson's in Dr. Barnhart [facility] in the [facility]. Interested reader is directed to that note from 02/02/2019. She had not any seizures since I follow her here in [place] and it has been a year since [...] preparation, and the actual timeduring the video. 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
--- OUTSIDE RECORDS SUMMARY | 2022-07-05 14:03 | XMS_ITS | Encounter Summary ---
:1985 Author Organization [facility] Address [address] [place] [address] Care Team Providers Name Role Phone Unavailable Primary Care Provider Unavailable Encounter Details Date Type Department Care Team Description 12/23/2019 Clinical Communication Department of Neurology Rui Godinez, in [facility] kandis Boss, M.P.H. [address] [place] [address] [address], [place] [address] Social History Tobacco Use Types Packs/Day [...] or relatives? How often do you attend sabianist or Never 2021 mormon services? Do you belong to any clubs or No 11/08/2021 organizations such as sabianist groups, unions, fraternal or athletic groups, or [...] or slept in a fdc (including now)? Education Answer Date Recorded What is the highest level of school Associate degree: [facility] [employer] [facility] program 08/25/2019 you have completed or the highest degree you have received? Sex Assigned at Date Recorded Female 02/02/2019 3:06 PM CDT documented as of this encounter Plan of Treatment Not on filedocumented as of this encounter Visit Diagnoses Not on filedocumented in this encounter
--- OUTSIDE RECORDS SUMMARY | 2022-07-05 14:03 | XMS_ITS | Encounter Summary ---
:1985 Author Organization [facility] Address [address] [place] [address] Care Team Providers Name Role Phone Unavailable Primary Care Provider Unavailable Encounter Details Date Type Department Care Team Description 12/22/2019 Refill Department of Sleep Medicine in Rui Godinez M.D., [place], [place] M.P.H. [address] [place] [address] [place] [address] (Wo rk) Social History Tobacco [...] or relatives? How often do you attend buddhism or Never 2021 lutheran services? Do you belong to any clubs or No 11/08/2021 organizations such as buddhism groups, unions, fraternal or athletic groups, or [...]
--- OUTSIDE RECORDS SUMMARY | 2022-07-05 14:03 | XMS_ITS | Encounter Summary ---
:1985 Author Organization [facility] Address [address] [place] [address] Care Team Providers Name Role Phone Unavailable Primary Care Provider Unavailable Encounter Details Date Type Department Care Team Description 02/18/2019 Clinical Communication Department of Rui Sommers, Medicine, Lidya Boss, M.P.H. [facility] [address] [place], [place] [address] [address] [place] [address] [facility] [phone] Social History Tobacco Use Types Packs/Day Years [...] or relatives? How often do you attend lutheran or Never 2021 jehovah's witness services? Do you belong to any clubs or No 11/08/2021 organizations such as lutheran groups, unions, fraternal or athletic groups, or [...]
--- OUTSIDE RECORDS SUMMARY | 2022-07-05 14:03 | XMS_ITS | Encounter Summary ---
:1985 Author Organization [facility] Address [address] [place] [address] Care Team Providers Name Role Phone Unavailable Primary Care Provider Unavailable Reason for Visit Reason Comments Med Refill Encounter Details Date Type Department Care Team Description 02/18/2019 Refill Department of Josi Quach A PRN, Med Refill Medicine, [facility], in [place], [place] [address] [place] [address] [place] [address] [phone] Social History Tobacco Use Types Packs/Day Years [...] or relatives? How often do you attend jewish or Never 2021 sikh services? Do you belong to any clubs or No 11/08/2021 organizations such as jewish groups, unions, fraternal or athletic groups, or [...] place to sleep or slept in a retirement (including now)? Sex Assigned at Date Recorded [...] was prescribed by Dr Rui Godinez in [facility] med. Telephone Encounter - Sarah Hurd, R.M.AMichael [...] 2 tablets by mouth twice daily Pharmacy: [place], [place] Pharmacy Comment: now 8 tabs 10 mg per patient documented in this encounter Plan of Treatment Not on filedocumented as of this encounter Visit Diagnoses Not on filedocumented in this encounter
--- OUTSIDE RECORDS SUMMARY | 2022-07-05 14:03 | XMS_ITS | Encounter Summary ---
:1985 Author Organization [facility] Address [address] [place] [address] Care Team Providers Name Role Phone Unavailable Primary Care Provider Unavailable Encounter Details Date Type Department Care Team Description 08/06/2019 Clinical Communication Department of Sleep Rui Godinez, Medicine in Karyn Gee, M.P .H. [place] [address] [place] [address] Social History Tobacco Use Types Packs/Day [...] do you attend yarsani or Never 2021 mandaeism services? Do you belong to any clubs [...]
--- OUTSIDE RECORDS SUMMARY | 2022-07-05 14:03 | XMS_ITS | Encounter Summary ---
:1985 Author Organization [facility] Address [address] [place] [address] Care Team Providers Name Role Phone Unavailable Primary Care Provider Unavailable Reason for Visit Reason Onset Date Comments Med Refill 11/26/2019 Encounter Details Date Type Department Care Team Description 11/26/2019 Refill Department of Sleep Medicine in Rui Godinez M.D., Med Refill [place], [place] M.P.H. [address] [place] [address] [place] [address] (Wo rk) Social History Tobacco [...] do you attend orthodox or Never 2021 latter day services? Do [...] the highest level of school Associate degree: [employer] program 08/25/2019 you have completed or the highest degree you have received? Sex Assigned at Date Recorded Female 02/02/2019 3:06 PM CDT documented as of this encounter Miscellaneous Notes Telephone Encounter - Sally Wallis L.P.N. - 11/26/2019 11:22 AM JEWEL SUPERVISOR Contacted patient. Confirmed with patient Directions for Lamictal. Stated that she is taking Lamictal 200 mg one tablet two times a day. L SUPERVISOR Telephone Encounter - Liz Crockett - 11/26/2019 8:54 AM CST Images from the original note were not included. Name of Medication: Lamotrigine ?? Primary Provider: Rui Godinez M.D. ?? Strength: 200 mg ?? Frequency: Take 1 tablet twice a day ?? Pharmacy (include location): [facility] in [place] [phone] ?? Documentation L SUPERVISOR documented in this encounter Plan of Treatment Not on filedocumented as of this encounter Visit Diagnoses Not on filedocumented in this encounter
--- OUTSIDE RECORDS SUMMARY | 2022-07-05 14:03 | XMS_ITS | Encounter Summary ---
:1985 Author Organization [facility] Address [address] [place] [address] Care Team Providers Name Role Phone Unavailable Primary Care Provider Unavailable Reason for Visit Reason Comments Med Refill Encounter Details Date Type Department Care Team Description 01/30/2021 Refill Department of Neurology in Rui Godinez M.D., Med Refill [place], [place] M.P.H. [address] [place] [address] [address] [place] [address] [phone] (Wo rk) Social History Tobacco Use Types [...] or relatives? How often do you attend bahai or Never 2021 mu-ism services? Do you belong to any clubs or No 11/08/2021 organizations such as bahai groups, unions, fraternal or athletic groups, or [...]
--- OUTSIDE RECORDS SUMMARY | 2022-07-05 14:03 | XMS_ITS | Encounter Summary ---
:1985 Author Organization [facility] Address [address] [place] [address] Care Team Providers Name Role Phone Unavailable Primary Care Provider Unavailable Encounter Details Date Type Department Care Team Description 11/23/2020 Orders Only [facility] Colt Martinez, Pcp [address] [place] [address] Social History Tobacco Use Types Packs/Day Years [...] do you attend samaritan or Never 2021 zoroastrianism services? Do you [...] place to sleep or slept in a [place] health care facility (including now)? Education Answer Date Recorded What [...]
--- OUTSIDE RECORDS SUMMARY | 2022-07-05 14:03 | XMS_ITS | Encounter Summary ---
:1985 Author Organization [facility] Address [address] [place] [address] Care Team Providers Name Role Phone Unavailable Primary Care Provider Unavailable Encounter Details Date Type Department Care Team Description 12/22/2019 Clinical Communication Department of Sleep Rui Godinez, Medicine in Karyn Gee, M.P .H. [place] [address] [place] [phone] Social History Tobacco Use Types Packs/Day [...] do you attend anabaptism or Never 2021 sikh services? Do you [...] or slept in a alf (including now)? Education Answer Date Recorded What is the highest level of school Associate degree: academ program 08/25/2019 you have completed or the highest degree you have received? Sex Assigned at Date Recorded Female 02/02/2019 3:06 PM CDT documented as of this encounter Miscellaneous Notes Telephone Encounter - Anayeli Garcia, C.M.A. - 12/25/2019 2:47 PM CDT Spoke with [facility] in [place] regarding patient's prescription for lamotrigine. The newest [...] in regards to her generic script. Stating [facility] has not received it. Patient will be calling [email or web address], again. Current Can Nursing/Provider leave a detailed message: Action Needed: Please review and advise. Name of Medication (if relevant): Telephone Encounter - Dena Mendiola L.P.N. - 12/23/2019 10:28 AM CDT Patient is requesting the following information: New rx for Lamictal in generic form to be sent to [facility] in [place] PLAN The following information was provided : [...] generic of this medication over to the [facility] pharmacy in [place] instead. Please advise. Current Can Nursing/Provider leave a detailed message: Did the patient refuse triage through Nurse line? (for symptom based concerns): Action Needed: Send generic to [facility] in [place] Name of Medication (if relevant): Lamictal (Generic form) documented in this encounter Plan of Treatment Not on filedocumented as of this encounter Visit Diagnoses Not on filedocumented in this encounter
--- OUTSIDE RECORDS SUMMARY | 2022-07-05 14:03 | XMS_ITS | Encounter Summary ---
:1985 Author Organization [facility] Address [address] [place] [address] Care Team Providers Name Role Phone Unavailable Primary Care Provider Unavailable Encounter Details Date Type Department Care Team Description 12/24/2019 Clinical Communication Department of Sleep Rui Godinez, Medicine in Karyn Gee, M.P .H. [place] [address] [place] [phone] Social History Tobacco Use Types Packs/Day [...] do you attend yarsani or Never 2021 jain services? Do you belong to any clubs [...] CDT Reason for Communication: Keep entering Lamo [id number] mg And the patient doesn't want this. She wants the generic and then she wants the brand name. Pharmacist would like a call to talk about the situation. Current Can Nursing/Provider leave a detailed message: Did the patient refuse triage through Nurse line? (for symptom based concerns): Action Needed: [facility] Name of Medication (if relevant): Lamo TRIgine documented in this encounter Plan of Treatment Not on filedocumented as of this encounter Visit Diagnoses Not on filedocumented in this encounter
--- OUTSIDE RECORDS SUMMARY | 2022-07-05 14:03 | XMS_ITS | Encounter Summary ---
:1985 Author Organization [facility] Address [address] [place] [address] Care Team Providers Name Role Phone Unavailable Primary Care Provider Unavailable Reason for Visit Reason Onset Date Comments Med Refill 11/26/2019 Encounter Details Date Type Department Care Team Description 11/26/2019 Clinical Communication Department of Sleep Rui Godinez, Med Refill Medicine in Karyn Gee, M.P .H. [place] [address] [place] [phone] Social History Tobacco Use Types Packs/Day Years [...] do you attend anabaptism or Never 2021 adventist services? Do you [...] the highest level of school Associate degree: [employer] program 08/25/2019 you have completed or the highest degree you have received? Sex Assigned at Date Recorded Female 02/02/2019 3:06 PM CDT documented as of this encounter Miscellaneous Notes Telephone Encounter - Diana Candelario - 11/26/2019 8:16 AM CST Name of Medication: Lamotrigine Primary Provider: Rui Godinez M.D. Strength: 200 mg Frequency: Take 1 tablet twice a day Pharmacy (include location): [facility] in [place] [phone] MAKER MACHINE documented in this encounter Plan of Treatment Not on filedocumented as of this encounter Visit Diagnoses Not on filedocumented in this encounter
--- OUTSIDE RECORDS SUMMARY | 2022-07-05 14:03 | XMS_ITS | Encounter Summary ---
:1985 Author Organization [facility] Address [address] [place] [address] Care Team Providers Name Role Phone Unavailable Primary Care Provider Unavailable Reason for Visit Reason Comments Med Refill Encounter Details Date Type Department Care Team Description 10/27/2020 Refill Department of Neurology in Rui Godinez M.D., Med Refill [place], [place] M.P.H. [address] [place] [address] [place] [address] [phone] (Wo rk) Social History Tobacco Use Types [...] do you attend mormon or Never 2021 muslim services? Do you [...]
--- OUTSIDE RECORDS SUMMARY | 2022-07-05 14:03 | XMS_ITS | Encounter Summary ---
:1985 Author Organization [facility] Address [address] [place] [address] Care Team Providers Name Role Phone Unavailable Primary Care Provider Unavailable Reason for Referral Outpatient (Routine) - Closed Specialty Diagnoses / Procedures Referred By Contact Refer red To Contact Neurology Rui Godinez M.D ., M.P.H. [facility] [address] [place] [address] Referral ID Status Reason Start Date Expiration Date Visits Requ ested Visits Authorized [id number] Closed 02/02/2019 02/02/2020 1 1 Reason for Visit Reason Comments Seizures Follow-up Appointment Request (Routine) - Closed Specialty Diagnoses / Procedures Referred By Contact Refer red To Contact Neurology Referral ID Status Reason Start Date Expiration Date Visits Requ ested Visits Authorized [id number] Closed 01/07/2019 01/07/2020 1 Encounter Details Date Type Department Care Team Description 02/02/2019 Comprehensive Visit Department of Rui Godinez 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 [address] [facility] [address] [place], [place] [phone] Social History Tobacco Use Types Packs/Day [...] do you attend synagogue or Never 2021 moravian services? Do you [...] is known to me from visits in [facility] where she was planning to become [...] from 01/17/2018 was 12 with a range [id number] and lamotrigine serum concentration was 4.8 with a range being 2.5-15 and [facility]. I gave her handout from [facility] on in epilepsy as she contemplating having her Mirena IUD removed and to become . She was on Keppra 1000 mg b.i.d. and lamotrigine 200 mg b.i.d.. At today's visit she remains on 1000 mg of levetiracetam and is on 400 mg b.i.d. of lamotrigine or twice the previous dose. Her lamotrigine serum concentration was checked on January 26 at [facility] in level was 8.4 micro g [...] Alert and oriented x 4. CRANIAL NERVES: credit assistant II-XII intact and symmetric. MOTOR: Full strength [...] be cut back to pre doses. 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
--- OUTSIDE RECORDS SUMMARY | 2022-07-05 14:03 | XMS_ITS | Encounter Summary ---
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 [address], [place] [address] Referral ID Status Reason Start Date Expiration Date Visits Requ ested Visits Authorized [id number] Closed 10/10/2020 10/10/2021 1 1 CTOR ATHLETIC Reason for Visit Outpatient (Routine) - Closed Specialty Diagnoses / Procedures Referred By Contact Refer red To Contact Neurology Rui Godinez M.D ., M.P.H. [facility] [address] [place] [address] Referral ID Status Reason Start Date Expiration Date Visits Requ ested Visits Authorized [id number] Closed 08/25/2019 08/24/2020 1 1 Encounter Details Date Type Department Care Team Description 10/10/2020 Telemedicine Department of Rui Godinez, Focal Comp tripp Partial Neurology in Karyn Bose, M.P .H. Epilepsy Not [place] [address] [place] [address] Intractable Without [address] [place], [place] [address] (HCC) (Primary Dx) [phone] Social History Tobacco [...] do you attend latter-day or Never 2021 baptism services? Do you belong to any clubs [...] technology by Rui Godinez M.D., M.P.H. from [facility] to the patient in their home. Virtual visit between Dr. Godinez and Trinity. Trinity is a 35 y.o. female who agreed to a virtual visit. HISTORY OF PRESENT ILLNESS This patient is one whom I have seen in [facility] previously in addition to two prior visit here at [facility]. She remained seizure-free and side effect free previously she has delivered a child and a had been on folic acid 1 mg prescription but has now acquired acmd-[id number]-[id number] folic acid she is taking that. She [...] lamotrigine as CIERA. I her child's night [id number] doing well. She has no concerns. The [...] preparation, and the actual timeduring the video. CTOR ATHLETIC documented in this encounter Plan of Treatment [...]
--- OUTSIDE RECORDS SUMMARY | 2022-07-05 14:03 | XMS_ITS | Encounter Summary ---
:1985 Author Organization [facility] Address [address] [place] [address] Care Team Providers Name Role Phone Unavailable Primary Care Provider Unavailable Encounter Details Date Type Department Care Team Description 11/29/2018 Orders Only [facility] - Humaira Beltran [address] [place] [address] Social History Tobacco Use [...] you attend oriental orthodox or Never 2021 tenriism services? Do you [...]
--- OUTSIDE RECORDS SUMMARY | 2022-07-05 14:04 | XMS_ITS | Encounter Summary ---
:1985 Author Organization [facility] Address [address] [place] [address] Care Team Providers Name Role Phone Unavailable Primary Care Provider Unavailable Encounter Details Date Type Department Care Team Description 10/22/2018 Clinical Communication Department of Internal Kassy Godinez, Medicine in Karyn Bose, M.P. H. [place] [address] [place] [phone] Social History Tobacco Use Types Packs/Day Years [...] do you attend hoahaoism or Never 2021 jew services? Do you belong to any clubs [...] slept in a senior care (including now)? Sex Assigned at Date Recorded Female 02/02/2019 3:06 PM CDT documented as of this encounter Plan of Treatment Not on filedocumented as of this encounter Visit Diagnoses Not on filedocumented in this encounter
--- OUTSIDE RECORDS SUMMARY | 2022-07-05 14:04 | XMS_ITS | Encounter Summary ---
:1985 Author Organization [facility] Address [address] [place] [address] Care Team Providers Name Role Phone Unavailable Primary Care Provider Unavailable Encounter Details Date Type Department Care Team Description 11/14/2018 Clinical Communication Department of Neurology Rui Godinez, in [facility] kandis Boss, M.P.H. [address] [place] [address] [address], [place] [phone] Social History Tobacco Use Types Packs/Day [...] do you attend judaism or Never 2021 cheondoism services? Do you [...] Dena Mendiola L.P.N. - 11/18/2018 11:02 AM CERTIFIED MEDICAL BILLER See next message. IFIED MEDICAL BILLER Telephone Encounter - Dnea Mendiola L.P.N. - 11/17/2018 10:12 AM CERTIFIED MEDICAL BILLER Left message to call back. IFIED MEDICAL BILLER Telephone Encounter - Golden Arreola - 11/14/2018 [...] Needed: Name of Medication (if relevant): Acetazolamide IFIED MEDICAL BILLER documented in this encounter Plan of Treatment Not on filedocumented as of this encounter Visit Diagnoses Not on filedocumented in this encounter
--- OUTSIDE RECORDS SUMMARY | 2022-07-05 14:04 | XMS_ITS | Encounter Summary ---
:1985 Author Organization [facility] Address [address] [place] [address] Care Team Providers Name Role Phone Unavailable Primary Care Provider Unavailable Reason for Visit Reason Onset Date Comments Rx Prior Authorization 10/22/2018 Lamictal Encounter Details Date Type Department Care Team Description 10/22/2018 Clinical Department of Angelica Wallis Prior Communication Neurology in Sally Elena, Authorization Lindsay Gee (Lamictal) [place] [address] [place] [address] [phone] Social History Tobacco Use Types Packs/Day Years [...] or relatives? How often do you attend religion or Never 2021 jain services? Do you belong to any clubs or No 11/08/2021 organizations such as religion groups, unions, fraternal or athletic groups, or [...] slept in a skilled nursing (including now)? Sex Assigned at Date Recorded Female 02/02/2019 3:06 PM CDT documented as of this encounter Miscellaneous Notes Telephone Encounter - Sally Wallis L.P.N. - 10/22/2018 4:12 PM CANE PILER Patient states she has faxed the form to Dr. Godinez. She also provided the phone number that Dr. Godinez or a nurse needs to call. , department [employer]. Please advise Form has been completed and faxed to . PILER documented in this encounter Plan of Treatment Not on filedocumented as of this encounter Visit Diagnoses Not on filedocumented in this encounter
--- OUTSIDE RECORDS SUMMARY | 2022-07-05 14:04 | XMS_ITS | Encounter Summary ---
:1985 Author Organization [facility] Address [address] [place] [address] Care Team Providers Name Role Phone Unavailable Primary Care Provider Unavailable Encounter Details Date Type Department Care Team Description 10/20/2018 Orders Only [facility] - Isma Hoyos M.D. [address], [facility] [address] [place] [id number] (Wo rk) Social History Tobacco [...] do you attend yazidi or Never 2021 yazidism services? Do you belong to any clubs [...] or slept in a intermediate (including now)? Sex Assigned at Date Recorded Female 02/02/2019 3:06 PM CDT documented as of this encounter Plan of Treatment Not on filedocumented as of this encounter Visit Diagnoses Not on filedocumented in this encounter
--- OUTSIDE RECORDS SUMMARY | 2022-07-05 14:04 | XMS_ITS | Encounter Summary ---
:1985 Author Organization [facility] Address [address] [place] [address] Care Team Providers Name Role Phone Unavailable Primary Care Provider Unavailable Encounter Details Date Type Department Care Team Description 10/20/2018 Clinical Communication Department of Neurology Rui Godinez, in [facility] kandis Boss, M.P.H. [address] [place] [address] [address] [phone] Social History Tobacco Use Types Packs/Day [...] do you attend quaker or Never 2021 restorationist services? Do you belong to any clubs [...] Sally Wallis L.P.N. - 10/21/2018 11:22 AM BIOMEDICAL REPAIR TECHNICIAN Contacted [facility]. Medication is correct but the issue is that they need a prior auth done on the weaver. It cost $2000.00 for a 30 day supply. EDICAL REPAIR TECHNICIAN Telephone Encounter - Rui Godinez M.D., M.P.H. - 10/21/2018 9:41 AM BIOMEDICAL REPAIR TECHNICIAN It says lamictal with DAW1 EDICAL REPAIR TECHNICIAN Telephone Encounter - Bianka Chakraborty - 10/20/2018 [...] Medication (if relevant): Lamictal 200 mg tablet EDICAL REPAIR TECHNICIAN documented in this encounter Plan of Treatment Not on filedocumented as of this encounter Visit Diagnoses Not on filedocumented in this encounter
--- OUTSIDE RECORDS SUMMARY | 2022-07-05 14:04 | XMS_ITS | Encounter Summary ---
:1985 Author Organization [facility] Address [address] [place] [address] Care Team Providers Name Role Phone Unavailable Primary Care Provider Unavailable Reason for Visit Reason Onset Date Comments Medical Information 11/18/2018 Encounter Details Date Type Department Care Team Description 11/18/2018 Clinical Department of Francisca Godinez Medical Communication Family MedicineKassy M.D. Information [facility], [address] in [facility] [phone] [address] [phone] [place], [place] (Work) [phone] Social History Tobacco Use [...] or relatives? How often do you attend yazidism or Never 2021 synagogue services? Do you belong to any clubs or No 11/08/2021 organizations such as yazidism groups, unions, fraternal or athletic groups, or [...] Sally Wallis L.P.N. - 11/18/2018 2:40 PM STOREROOM ATTENDANT Ector notes are under Document Viewer. EROOM ATTENDANT Telephone Encounter - Vincenzo Spivey - 11/18/2018 11:28 AM CST Reason for Communication: [facility] in [place] called and they need a prior Authorization for the medication, Keedmondra please advise. Current Can Nursing/Provider leave a detailed message: Did the patient refuse triage through Nurse line? (for symptom based concerns) Action Needed: Name of Medication (if relevant): rodger EROOM ATTENDANT documented in this encounter Plan of Treatment Not on filedocumented as of this encounter Visit Diagnoses Not on filedocumented in this encounter
--- OUTSIDE RECORDS SUMMARY | 2022-07-05 14:04 | XMS_ITS | Encounter Summary ---
:1985 Author Organization [facility] Address [address] [place] [address] Care Team Providers Name Role Phone Unavailable Primary Care Provider Unavailable Reason for Visit Reason Onset Date Comments Rx issues 11/18/2018 Encounter Details Date Type Department Care Team Description 11/18/2018 Clinical Communication Department of Neurology Rui Godinez, Rx issues in [facility] kandis Boss, M.P.H. [address] [place] [address] [place] [phone] Social History Tobacco Use Types Packs/Day [...] do you attend alevism or Never 2021 orthodoxy services? Do you [...] a [place] [facility] (including now)? Sex Assigned at Date Recorded Female 02/02/2019 3:06 PM CDT documented as of this encounter Miscellaneous Notes Telephone Encounter - Dena Mendiola L.P.N. - 11/18/2018 10:55 AM SENIOR IT BUSINESS ANALYST I called Trinity, She is needing refills [...] informed that Dr. Godinez recommends meeting with Entertainment Usher and Pharmacist to see if help can be obtained for the high out of pocket cost. Patient agrees to this. OR IT BUSINESS ANALYST Telephone Encounter - Sally Wallis L.P.N. - 11/18/2018 10:13 AM SENIOR IT BUSINESS ANALYST Contacted Trinity. Informed that I called the number provided for prior auth exception request form at . Forms had been faxed on 10/21/18. Was told to refax and put urgent on the request. Fax to . OR IT BUSINESS ANALYST Telephone Encounter - Zahra Perez - 11/18/2018 7:32 AM CST Patient calling regarding Rx has to be a name brand. Please call back [phone] OR IT BUSINESS ANALYST documented in this encounter Plan of Treatment Not on filedocumented as of this encounter Visit Diagnoses Diagnosis Seizure (HCC) - Primary documented in this encounter
--- OUTSIDE RECORDS SUMMARY | 2022-07-05 14:04 | XMS_ITS | Encounter Summary ---
:1985 Author Organization [facility] Address [address] [place] [address] Care Team Providers Name Role Phone Unavailable Primary Care Provider Unavailable Encounter Details Date Type Department Care Team Description 10/13/2018 Clinical Communication Department of Neurology Rui Godinez, in [facility] kandis Boss, M.P.H. [address] [place] [address] [address], [place] [phone] Social History Tobacco Use Types Packs/Day [...] or relatives? How often do you attend latter day or Never 2021 restoration services? Do you belong to any clubs or No 11/08/2021 organizations such as latter day groups, unions, fraternal or athletic groups, or [...] or slept in a longterm (including now)? Sex Assigned at Date Recorded [...] : Prescription for LamoTRIgine was [facility] in [place] Information: patient/caller able to repeat back in their own words The following references were used: provider Herbert BLADE POLISHER Telephone Encounter - Sally Wallis L.P.N. - 10/13/2018 8:38 AM JET BLADE POLISHER Contacted patient. Stated that she had the form faxed to our clinic that needs to be filled out. Needs brand name seizure medication. Has tried generic medication and had seizures while on them. Is aware that will be back in office on SatOctober 15. BLADE POLISHER Telephone Encounter - Racquel Jimenez - 10/13/2018 [...] Godinez here but has seen him in [place]. Form is for a medication her insurance is charging her full weaver for because it is not the name brand. She is and needing this medication and needing Dr. Godinez to fill this out for her. Name of Medication (if relevant): BLADE POLISHER documented in this encounter Plan of Treatment Not on filedocumented as of this encounter Visit Diagnoses Not on filedocumented in this encounter
--- OUTSIDE RECORDS SUMMARY | 2022-07-05 14:04 | XMS_ITS | Encounter Summary ---
:1985 Author Organization [facility] Address [address] [place] [address] Care Team Providers Name Role Phone Unavailable Primary Care Provider Unavailable Encounter Details Date Type Department Care Team Description 10/20/2018 Clinical Communication Department of Dena Mendiola Neurology in [place], [place] [address] [place] [phone] Social History Tobacco Use Types Packs/Day [...] do you attend yazidi or Never 2021 confucianist services? Do you belong to any clubs [...] Dena Mendiola L.P.N. - 10/27/2018 1:23 PM STUDIO OPERATIONS MANAGER Received forms back from [facility] needing additional information. Dr. Godinez completes these and they are faxed back. IO OPERATIONS MANAGER Telephone Encounter - Dena Mendiola L.P.N. - 10/22/2018 3:42 PM STUDIO OPERATIONS MANAGER Forms are faxed to Neurology in [place] for Dr. Godinez to fill out. IO OPERATIONS MANAGER Telephone Encounter - Dena Mendiola L.P.N. - 10/22/2018 3:37 PM STUDIO OPERATIONS MANAGER I was given the fax number to fax the forms to. Patient is covered under [facility]. IO OPERATIONS MANAGER Telephone Encounter - Dena Mendiola L.P.N. - 10/22/2018 3:33 PM STUDIO OPERATIONS MANAGER Prior Auth office unable to help because a physician signature is needed on the forms. IO OPERATIONS MANAGER Telephone Encounter - Dena Mendiola L.P.N. - 10/22/2018 2:31 PM STUDIO OPERATIONS MANAGER I spoke to the patient to see if she had a fax number. She was only given the phone number. I informed her because it is a prior authorization, I will have the prior authorization office call [employer]. I notified Clemente Alfredo who was working on this yesterday and faxed the forms to her. IO OPERATIONS MANAGER Telephone Encounter - Sydney Kim - 10/22/2018 12:03 PM CST Patient states she has faxed the form to Dr. Godinez. She also provided the phone number that Dr. Godinez or a nurse needs to call. , department [employer]. Please advise IO OPERATIONS MANAGER Telephone Encounter - Dena Mendiola L.P.N. - 10/22/2018 9:07 AM STUDIO OPERATIONS MANAGER I called Trinity to see that she got the message that the form was faxed. She indicated that she went to her HR because of the trouble of [facility] not seeing her in their data base. She said that her HR called [facility] and she was given new forms. The form that was faxed was the wrong form. She will call with a new fax number to send it to because there is no fax number on the form. She will fax the form to me today. IO OPERATIONS MANAGER Telephone Encounter - Dena Mendiola L.P.N. - 10/21/2018 10:12 AM STUDIO OPERATIONS MANAGER Left message to the patient that the form was faxed. IO OPERATIONS MANAGER Telephone Encounter - Dena Mendiola L.P.N. - 10/21/2018 9:49 AM STUDIO OPERATIONS MANAGER Form is faxed to [facility] of [place], customer service. , phone Address [address] [address] [place] [address] IO OPERATIONS MANAGER Telephone Encounter - Dena Mendiola L.P.N. - 10/21/2018 8:17 AM STUDIO OPERATIONS MANAGER Phone call received yesterday from Prior Auth office Juni Cornejo. She is working on the prior SendUs for the [facility] and wanting to do a conference call to the insurance. Parties myself , Juni and [facility] to get the copay covered. Was on the phone for 45 min with [facility] and they were unable to help [...] are here and on Dr. Godinez desk. IO OPERATIONS MANAGER Telephone Encounter - Dena Mendiola L.P.N. - 10/20/2018 4:47 PM STUDIO OPERATIONS MANAGER Member service number should be [phone]. Patient to fax forms tomorrow. IO OPERATIONS MANAGER Telephone Encounter - Dena Mendiola L.P.N. - 10/20/2018 2:20 PM STUDIO OPERATIONS MANAGER Patient calls and says that her insurance has changed to [facility] - [place], , Group [id number]. Phone number member services IO OPERATIONS MANAGER Telephone Encounter - Dena Mendiola L.P.N. - 10/20/2018 2:09 PM STUDIO OPERATIONS MANAGER EPA pool Please start a prior auth for the patients Lamictal that Dr. Godinez prescribed today. She needs brandname as she had many seizures when she tried the generic.Please do today as the patient is out of medication. Thank you, Thank you IO OPERATIONS MANAGER documented in this encounter Plan of Treatment Not on filedocumented as of this encounter Visit Diagnoses Not on filedocumented in this encounter
--- OUTSIDE RECORDS SUMMARY | 2022-07-05 14:04 | XMS_ITS | Encounter Summary ---
:1985 Author Organization [facility] Address [address] [place] [address] Care Team Providers Name Role Phone Unavailable Primary Care Provider Unavailable Encounter Details Date Type Department Care Team Description 10/20/2018 Clinical Communication Department of Dena Mendiola Neurology in [place], [place] [address] [place] [phone] Social History Tobacco Use Types Packs/Day [...] or relatives? How often do you attend worship or Never 2021 yarsani services? Do you belong to any clubs or No 11/08/2021 organizations such as worship groups, unions, fraternal or athletic groups, or [...] Dena Mendiola L.P.N. - 10/20/2018 3:02 PM JINRIKSHA DRIVER Patient is notified. [facility] office also notified to start PA for Lamictal. IKSHA DRIVER Telephone Encounter - Rui Godinez M.D., M.P.H. - 10/20/2018 1:54 PM JINRIKSHA DRIVER I called and talked to the pharmacy ([facility] [place]) and refilled her Lamictal at 400 mg BID as she is currently taking. My last note (in [place]) shows that she was prescribed 300 mg BID so someone else must have increased the dose. IKSHA DRIVER Telephone Encounter - Dena Mendiola L.P.N. - 10/20/2018 1:43 PM JINRIKSHA DRIVER Patient calling and has seen Dr. Godinez in [place]. She is calling about her the prescription [...] taking 400 mg twice daily. She uses [facility] in [place]. Scanned notes from [place] are in the EMR from September. She would like a new rx sent to the pharmacy and to have CIERA 1. Please advise which dose she should be on. IKSHA DRIVER documented in this encounter Plan of Treatment Not on filedocumented as of this encounter Visit Diagnoses Not on filedocumented in this encounter
--- OUTSIDE RECORDS SUMMARY | 2022-07-05 14:04 | XMS_ITS | Encounter Summary ---
:1985 Author Organization [facility] Address [address] [place] [address] Care Team Providers Name Role Phone Unavailable Primary Care Provider Unavailable Encounter Details Date Type Department Care Team Description 10/20/2018 Documentation Department of Neurology in [place], [place] L.P.N. [address] [place] [address] [place], [place] [phone] Social History Tobacco Use Types Packs/Day Years [...] do you attend scientologist or Never 2021 anabaptism services? Do you [...] 1:23 PM CST See next phone message. F RESOURCE OFFICER documented in this encounter Plan of Treatment Not on filedocumented as of this encounter Visit Diagnoses Not on filedocumented in this encounter
--- OUTSIDE RECORDS SUMMARY | 2022-07-05 14:04 | XMS_ITS | Encounter Summary ---
:1985 Author Organization [facility] Address [address] [place] [address] Care Team Providers Name Role Phone Unavailable Primary Care Provider Unavailable Encounter Details Date Type Department Care Team Description 10/06/2018 Clinical Communication Department of Neurology Rui Godinez, in [facility] kandis Boss, M.P.H. [address] [place] [address] [address] [phone] Social History Tobacco Use Types Packs/Day [...] do you attend latter-day or Never 2021 amish services? Do you belong to any clubs [...] Sally Wallis L.P.N. - 10/08/2018 10:24 AM HOT FRAME TENDER Patient advised to check with [facility] to send neurology records and to fax over the formulary exception form. Patient in agreement with this plan. FRAME TENDER Telephone Encounter - Diana Candelario - [...] Name of Medication (if relevant): Lamictal pills FRAME TENDER documented in this encounter Plan of Treatment Not on filedocumented as of this encounter Visit Diagnoses Not on filedocumented in this encounter
--- OUTSIDE RECORDS SUMMARY | 2022-07-05 14:04 | XMS_ITS | Encounter Summary ---
:1985 Author Organization [facility] Address [address] [place] [address] Care Team Providers Name Role Phone Unavailable Primary Care Provider Unavailable Encounter Details Date Type Department Care Team Description 11/14/2018 Orders Only [facility] - Humaira Beltran [address] [place] [address] Social History Tobacco Use [...] do you attend rastafarian or Never 2021 orthodox services? Do you [...] or slept in a fci (including now)? Sex Assigned at Date Recorded Female 02/02/2019 3:06 PM CDT documented as of this encounter Plan of Treatment Not on filedocumented as of this encounter Visit Diagnoses Not on filedocumented in this encounter
--- OUTSIDE RECORDS SUMMARY | 2022-07-05 14:04 | XMS_ITS | Encounter Summary ---
:1985 Author Organization [facility] Address [address] [place] [address] Care Team Providers Name Role Phone Unavailable Primary Care Provider Unavailable Encounter Details Date Type Department Care Team Description 10/17/2018 Orders Only Department of Neurology in Rui Godinez M.D., [place], [place] M.P.H. [address] [place], [place] [address] [address] [place] [address] [place], [place] [phone] (Wo rk) Social History Tobacco Use [...] do you attend jew or Never 2021 taoist services? Do you [...]
--- OUTSIDE RECORDS SUMMARY | 2022-07-05 14:04 | XMS_ITS | Encounter Summary ---
:1985 Author Organization [facility] Address [address] [place] [address] Care Team Providers Name Role Phone Unavailable Primary Care Provider Unavailable Reason for Visit Reason Comments Med Refill Encounter Details Date Type Department Care Team Description 10/20/2018 Refill Department of Neurology in Rui Godinez M.D., Med Refill [place], [place] M.P.H. [address] [facility] [address] [place] [address] [place] [phone] (Wo rk) Social History Tobacco [...] do you attend judaism or Never 2021 nondenominational services? Do you [...]
== END 2022-07-05 13:54 | disposition home or self-care (01) ==
LOC: US 13:53
PROVIDERS: PCP Family Medicine; Visit Provider Obstetrics & Gynecology
DX: Z36.86 Encounter for antenatal screening for cervical length (principal); Z3A.22 22 weeks gestation of pregnancy
CPT/HCPCS: 76817

== ENCOUNTER 2022-08-17 09:10 | Outpatient (CLI) | payer BC, SELFPAY ==
--- OUTSIDE RECORDS SUMMARY | 2022-08-17 09:20 | XMS_ITS | Encounter Summary ---
:1985 Author Organization [facility] Address [address] [place] [address] Care Team Providers Name Role [facility] Primary Care Provider [phone] Gia Martínez MD Unavailable Reason for Visit Reason Onset Date Comments Social Work Services 11/06/2021 Encounter Details Date Type Department Care Team Description 11/06/2021 Telephone UR CASE MANAGEMENT Jennifer Social Work Services [phone] Mei Sanchez, [facility] Social History Tobacco Use Types Packs/Day Years Used Date Smoking Tobacco: Never Smokeless Tobacco: Never Alcohol Use Standard Drinks/Week Comments Not Currently 0 (1 standard drink = 0.6 oz pure alcoho l) occ Sex Assigned at Date Recorded Not on file COVID-19 Exposure Response Date Recorded In the last month, have you been in contact with No / Unsure 10/28/2021 8:34 AM ELEVATOR OPERATOR someone who was confirmed or suspected to have Coronavirus / COVID-19? documented as of this encounter Miscellaneous Notes Telephone Encounter - Mei Rodriguez, LIFTER DRIVER - 11/06/2021 9:21 AM ELEVATOR OPERATOR Received email from hospital security department with notification that fetus' body is still in the morgue. Security contacted [employer] [place] and they report they have not been able to reach patient to make the cremation arrangements and, therefore, they have not come to the hospital for removal of the body. Phone call to patient this morning. No answer. Message left with request that Trinity call me backas soon as possible. ATOR OPERATOR documented in this encounter Plan of Treatment Not on filedocumented as of this encounter Visit Diagnoses Not on filedocumented in this encounter Care Teams Application Support Relationship Specialty Start Date End Date [facility] PCP - General 09/05/17 [address] [place], [place] [phone] Gia Martínez MD Assigned OBGYN Provider 10/29/[address] [facility] [address] [place], [place] [address] documented as of this encounter
--- OUTSIDE RECORDS SUMMARY | 2022-08-17 09:20 | XMS_ITS | Encounter Summary ---
:1985 Author Organization [facility] Address [address] [place] [address]. [place] [address] Care Team Providers Name Role Phone [facility] Primary Care Provider [phone] Encounter Details Date Type Department Care Team Description 10/26/2021 Travel Social History Tobacco Use Types Packs/Day Years Used Date Smoking Tobacco: Never Alcohol Use Standard Drinks/Week Comments Yes 0 (1 standard drink = 0.6 oz pure alcoho l) occ Sex Assigned at Date Recorded Not on file COVID-19 Exposure Response Date Recorded In the last month, have you been in contact with No / Unsure 10/26/2021 1:52 PM ACCESS SERVICES REPRESENTATIVE someone who was confirmed or suspected to have Coronavirus / COVID-19? documented as of this encounter Plan of Treatment Not on filedocumented as of this encounter Visit Diagnoses Not on filedocumented in this encounter Care Teams Life Skills Coach Relationship Specialty Start Date End Date [facility] PCP - General 09/05/17 [address] [place], [place] [phone] documented as of this encounter
--- OUTSIDE RECORDS SUMMARY | 2022-08-17 09:20 | XMS_ITS | Encounter Summary ---
:1985 Author Organization [facility] Address [address] [place] [address]. [place] [address] Care Team Providers Name Role Phone [facility] Primary Care Provider [phone] Encounter Details Date Type Department Care Team Description 10/27/2021 Telephone [facility] Mauricio [facility] MD Karina [address] [place] [address] [place] [address] [address] [place] [address] [place] [phone] Social History Tobacco Use Types Packs/Day Years Used Date Smoking Tobacco: Never Alcohol Use Standard Drinks/Week Comments Yes 0 (1 standard drink = 0.6 oz pure alcoho l) occ Sex Assigned at Date Recorded Not on file COVID-19 Exposure Response Date Recorded In the last month, have you been in contact with No / Unsure 10/28/2021 8:34 AM SENIOR JAVASCRIPT ENGINEER someone who was confirmed or suspected [...] things worked out today. 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 She is scheduled for induction termination tomorrow 10/28. Can you call the hospital social studies department chair who works on labor and delivery to make sure that they contact her today? (if you call L&D they have the contact info). The patient wants tomake cremation arrangements for remains today before delivery if possible. I called the business division chair social studies department chair at the end of the day yesterday and she said she'd pass it on but I want to make sureto close the loop and confirm that the social workers at the hospital know about her. Thanks, Gia Martínez MD OR JAVASCRIPT ENGINEER documented in this encounter Plan of Treatment Not on filedocumented as of this encounter Visit Diagnoses Not on filedocumented in this encounter Care Teams Broadcast Engineer Relationship Specialty Start Date End Date [facility] Medical PCP - General 09/05/17 [address] [place], [place] [phone] documented as of this encounter
--- OUTSIDE RECORDS SUMMARY | 2022-08-17 09:20 | XMS_ITS | Clinical Summary ---
:1985 Author Organization [facility] Address [address] [place] [address]. [place] [address] Care Team Providers Name Role Phone [facility] Primary Care Provider [phone] Gia Martínez MD Unavailable [phone] Allergies No known active allergies Medications [...] Comments Blood Pressure 107/66 10/29/2021 11:27 AM LICENSING ENGINEER Pulse 57 06/16/2013 7:52 AM CDT Temperature 37 ??C (98.6 ??F) 10/29/2021 6:23 AM LICENSING ENGINEER Respiratory Rate 99 10/29/2021 8:38 AM LICENSING ENGINEER Oxygen Saturation 100% 10/29/2021 12:01 PM LICENSING ENGINEER Inhaled Oxygen Concentration - - Weight 79.4 kg (175 lb) 10/28/2021 9:00 AM LICENSING ENGINEER Height 165.1 cm (5' 5) 10/28/2021 9:00 AM LICENSING ENGINEER Body Mass Index 29.12 10/28/2021 9:00 AM LICENSING ENGINEER Plan of Treatment Health Maintenance Due Date Last Done Comments ADVANCE CARE PLANNING 1985 ANNUAL REVIEW OF HM ORDERS 1987 HEPATITIS B IMMUNIZATION (1 1987 of 3 - 3-dose series) YEARLY PREVENTIVE VISIT 1985 Pneumococcal Vaccine: 1993 Pediatrics (0 [...] SCREENING Completed 07/25/2021 HIV SCREENING Completed 07/25/2021 MENINGITIS IMMUNIZATION Aged Out No longe r eligible based on patient 's age to complete this topic Insurance Payer Benefit Plan / Subscriber ID Effective Dates Phone Addre ss Type Group BCBS BCBS OUT OF [id number] 2021-Present [phone] [address] [address] [place] [address] Advance Directives For more information, please contact: [phone] Latest Code Status on File Code Status Date Activated Date Inactivated Comments Full Code 10/28/2021 6:54 PM 10/29/2021 4:58 PM All basic an d advanced life-sustaining interventions are performed as pepito ropriate Question Answer Comments Code status determined by: Discussion with patient/ legal de cision maker Care Teams Advanced Registered Nurse Relationship Specialty Start Date End Date [facility] Medical PCP - General 09/05/17 [address] [place], [place] [phone] Gia Martínez MD Assigned OBGYN Provider 10/29/21 [address] [facility] [address] [place] [address]
--- OUTSIDE RECORDS SUMMARY | 2022-08-17 09:20 | XMS_ITS | Encounter Summary ---
:1985 Author Organization [facility] Address [address] [place] [address]. [place] [address] Care Team Providers Name Role Phone [facility] Primary Care Provider [phone] Reason for Visit Reason Onset Date Comments social work referral 10/27/2021 Encounter Details Date Type Department Care Team Description 10/27/2021 Telephone UR CASE MANAGEMENT Jennifer social work referral [phone] Mei Sanchez [facility] Social History Tobacco Use Types Packs/Day Years Used Date Smoking Tobacco: Never Alcohol Use Standard Drinks/Week Comments Yes 0 (1 standard drink = 0.6 oz pure alcoho l) occ Sex Assigned at Date Recorded Not on file COVID-19 Exposure Response Date Recorded In the last month, have you been in contact with No / Unsure 10/26/2021 1:52 PM COLD FOOD PACKER someone who was confirmed or suspected to have Coronavirus / COVID-19? documented as of this encounter Miscellaneous Notes Telephone Encounter - Mei Rodriguez LICSW - 10/27/2021 3:33 PM COLD FOOD PACKER Received return phone call from patient. Her Amrti joined the conversation via speaker phone. Trinity [...] and private arrangements with a licensed home. Lilia are now are taking time to think through their wishes. They are leaning toward cremation and have already madeone call to the [employer] [place] to learn about their fees. The family does express some concern about finances so I did share information about [facility]. * Family knows this baby is a boy and they have chosen the name ???Avtar?? * Lilia have a 2.5 year-old daughter named Denita. They have some interest in having her come to the hospital for a visit to meet Avtar after delivery. This potential visit request has beenescalated to Birthplace manager post, Ce Gonzáles with request for compassionate exception [...] made an initial referral Cleo Villagomez- the community health program coordinator ([phone]). Nursing staff to please contact [facility] again when family is ready for photos. * Trinity and Amrit shared they are not jehovah's witness but thought a shipfitters supervisor visit for spiritual support and potential ritual would be very helpful and comforting. They asked that a shipfitters supervisor please come see them. The on-call socia work team has been notified of this family's planned induction of labor and will follow-up. The on-call health and social care teacher can be reached via pager [phone]. FOOD PACKER documented in this encounter Plan of Treatment Not on filedocumented as of this encounter Visit Diagnoses Not on filedocumented in this encounter Care Teams Salon Sales Consultant Relationship Specialty Start Date End Date [facility] Medical PCP - General 09/05/17 [address] [place] [address] documented as of this encounter
--- OUTSIDE RECORDS SUMMARY | 2022-08-17 09:20 | XMS_ITS | Encounter Summary ---
:1985 Author Organization [place] Address [address] [place] [address]. [place] [address] Care Team Providers Name Role Phone [facility] Care Provider [phone] Gia Martínez MD Unavailable [phone] Reason for Visit Reason Comments Induction Of Labor trisomy 18 Auth/Cert Specialty Diagnoses / Procedures Referred By Contact Refer red To Contact clinical biochemical geneticist Diagnoses Encounter for induction of labor Maternity elizabeth: 03/07/22 IOL Encounter for induction of labor Ur 4cob [address] [place] [address] Phone: Referral ID Status Reason Start Date Expiration Date Visits Requ ested Visits Authorized [id number] 1 1 Encounter Details Date Type Department Care Team Description 10/28/2021 - Hospital Encounter [facility] Sa rima Martínez MD [address] [place], [place] [id number] 10/29/2021 [facility] Birthplace Marnie Tafoya MD [address] [place], [place] [phone] [place] [id number] Social History Tobacco Use Types Packs/Day Years Used Date Smoking Tobacco: Never Smokeless Tobacco: Never Alcohol Use Standard Drinks/Week Comments Not Currently 0 (1 standard drink = 0.6 oz pure alcoho l) occ Sex Assigned at Date Recorded Not on file COVID-19 Exposure Response Date Recorded In the last month, have you been in contact with No / Unsure 10/28/2021 8:34 AM ADMINISTRATIVE JUDGE someone who was confirmed or suspected to have Coronavirus / COVID-19? documented as of this encounter Last Filed Vital Signs Vital Sign Reading Time Taken Comments Blood Pressure 107/66 10/29/2021 11:27 AM ADMINISTRATIVE JUDGE Pulse - - Temperature 37 ??C (98.6 ??F) 10/29/2021 6:23 AM ADMINISTRATIVE JUDGE Respiratory Rate 99 10/29/2021 8:38 AM ADMINISTRATIVE JUDGE Oxygen Saturation 100% 10/29/2021 12:01 PM ADMINISTRATIVE JUDGE Inhaled Oxygen Concentration - - Weight 79.4 kg (175 lb) 10/28/2021 9:00 AM ADMINISTRATIVE JUDGE Height 165.1 cm (5' 5) 10/28/2021 9:00 AM ADMINISTRATIVE JUDGE Body Mass Index 29.12 10/28/2021 9:00 AM ADMINISTRATIVE JUDGE documented in this encounter Discharge Summaries Lin Lemon MD - 10/29/2021 12:10 PM CST [facility] Discharge Summary Trinity Lozano Age: [age] [...] 2 times daily Refills: 0 Consultations: Anesthesia Sail Cutter Social work Brief Admission History Ms. Trinity [...] To Knowconsent on 10/26/21 at 1535 with de. She received mifepristone 200mg PO and misoprostol 400mcg vaginally x2 doses. She received IV diluadid, IV fentanyl and an epidural for pain control. She developed [facility] fever of 103F which persisted for 6 [...] Infant weight pending. Apgars 0 and 0. ?? Stage 3: Cord avulsed with gentle traction while doing an exam to see where placenta was. Placenta was fci through cervix at this time so it [...] Lemon MD PGY3 Obstetrics & Gynecology 10/29/21 NISTRATIVE JUDGE Associated attestation - Marnie Tafoya MD - 10/29/2021 3:28 PM ADMINISTRATIVE JUDGE Physician Attestation I, Marnie Tafoya, saw and evaluated this patient prior to [...] 10/29/2021 2:07 PM CST Gia Martínez MD [facility] [employer] [address] [place] [address] [place] [id number] NISTRATIVE JUDGE AttachmentsThe following attachments cannot be sent through Care Everywhere. Taking Care of Yourself after Delivery: For Women Who Have Had a Loss or (Ugandan)documented in this encounter Medications at Time of [...] and pitocin. She delivered a stillborn male , weighing 278g, length 22.9cm at 0747 AM. Amniotic fluid was clear. External examination reveals a well-developed male infant. The features of the were with syndromic appearance. A mouth and anus were patent without cleft lip or palette. 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 Distress: Grief at the loss of their child. Coping: Parents of Avtar requested a [place], Naming and Commendation service for their son Avtar.. Plan: On-call visit, mom will be discharging soon. No plan to follow. Cornelio Strickland Field Counsel Pager number: [phone] * [facility] remains available 29/04 for emergent requests/referrals, either by having the switchboard page the on-call first aid nurse or by entering an ELIZABETH/STAT consult in [facility] (this will also page the on-call first aid nurse).* NISTRATIVE JUDGE Bianka Hutson, SOHEILA - 10/29/2021 8:41 AM [...] Obstetrics & Gynecology PGY-3 1:58 AM 10/29/2021 NISTRATIVE JUDGE Anastasia Mejia MD - 10/28/2021 10:17 PM CST Cervix 2/50/-1, velez placed w/ 70 ccs without difficulty. Patient tolerated intervention well. Continue pitocin per protocol. Comfortable with epidural in place. Dr. Martínez updated. Anastasia Mejia MD Obstetrics & Gynecology PGY-3 10:18 PM 10/28/2021 NISTRATIVE JUDGE Anastasia Mejia MD - 10/28/2021 8:52 PM [...] Andrews MD - 10/28/2021 7:26 PM CST [facility] LABOR & DELIVERY PROGRESS NOTE: October 28, [...] Antibody Screen Negative Negative SPECIMEN EXPIRATION DATE [id number] ASSESSMENT / PLAN: 36 year old at [...] and resources with patient. Gia Martínez MD NISTRATIVE JUDGE Gia Martínez MD - 10/28/2021 6:25 PM [...] Antibody Screen Negative Negative SPECIMEN EXPIRATION DATE [id number] ASSESSMENT / PLAN: 36 year old at [...] or autopsy. Plan cremation. Gia Martínez MD NISTRATIVE JUDGE Madhuri Chaves, CCLS - 10/28/2021 3:48 PM [...] at bedside in room for Carolina's scheduledvisit. NISTRATIVE JUDGE Bianka Hutson, RN - 10/28/2021 11:41 AM CST Messsage left for Now I lay Me Down to Sleep that the patient would like pictures of their baby after it its born NISTRATIVE JUDGE documented in this encounter H&P Notes Gia Martínez MD - 10/28/2021 12:33 PM CST [facility] OB History and Physical Trinity Lozano [...] Past Surgical History: Procedure Laterality Date ??? 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 ? [...] desires cremation, s/p SW consult Epilepsy - BRICKMASON SUPERVISOR lamictal, keppra, and acetazolamide The patient was [...] the phone with me on 10/26/2021 at 5435. I completed the consent and administered mifepristone [...] Service (when I saw the patient): 10/28/21 NISTRATIVE JUDGE documented in this encounter Consult Notes Poornima Elizabeth - 10/28/2021 2:25 PM CSTAssociated Order(s): SPIRITUAL HEALTH SERVICES IP CONSULT SPIRITUAL HEALTH SERVICES SPIRITUAL ASSESSMENT Progress Note [facility] ([facility]) 4COB ON-CALL VISIT REFERRAL SOURCE:Consult placed for pt asking for spiritual/emotional support: Induction of labor, fetus not compatible with life. Phone conversation with pt SOHEILA Carlton; will share information with overnight convention services director and tomorrow's daytime first aid nurse regarding follow up care. Baby's Name: Avtar Ryan Father's name: Amrit. Mother is asking for a blessing/prayer after baby is born. RN did not believe they wanted catholic and will clarify if this is the request. Per RN, mom stated something connected with our Gnosticism background but does not have to be too formal. Poornima Elizabeth MDiv Associate Sail Cutter Pager [phone] Office [phone] [facility] remains available 29/04 for emergent requests/referrals, either by having the switchboard page the on-call first aid nurse or by entering an ELIZABETH/STAT consult in [facility] (this will also page the on-call first aid nurse). Routine [facility] consults receive an initial response within 24 hours. NISTRATIVE JUDGE documented in this encounter Miscellaneous Notes Plan [...] Encouraged to call if anything comes up. NISTRATIVE JUDGE Plan of Care - Bianka Hutson RN [...] can Call the [facility] if needed NISTRATIVE JUDGE L&D Delivery Note - Gia Martínez MD - 10/29/2021 8:58 AM ADMINISTRATIVE JUDGE OB Vaginal Delivery Note Trinity Lozano Age: [age] year old Date of : 1985 GA: 21w4d GP: Labor Complications: None EBL: mL Delivery QBL: Delivery Type: Vaginal, Spontaneous ROM to Delivery Time: (Delivered) Hours: 1 Minutes: 45 [facility] Weight: 1 Minute 5 Minute 10 Minute Totals: 0 0 0 Delivery Details: Vaginal Delivery Summary 21w4d Stage 1: Trinity Lozano is a 36 year old who presented on 10/28/2021 at 21w3d for termination induction for multiple anomalies concerning for Trisomy 18. She completed a Women's Right To Knowconsent on 10/26/21 at 1535 with de. She received mifepristone 200mg PO and misoprostol [...] to see where placenta was. Placenta was fci through cervix at this time so it [...] holding baby. Gia Martínez MD Janna Lozano-Trinity [[id number]] Rupture date/time: 10/29/21 0602 Rupture type: Spontaneous [...] collection?: No Delivery (Maternal) (Provider to Complete) ([id number]) Episiotomy: None Perineal lacerations: None Genital tract inspection done: Pos Blood Loss Mother: Trinity Lozano #[id number] Start of Mother's Information Delivery Blood Loss 10/28/21 1947 - 10/29/21 0909 None End of Mother's Information Mother: Trinity Lozano #[id number] Delivery - Provider to Complete ([id number]) Delivering clinician: Gia Martínez MD Attempted Delivery Types (Choose all that apply): Spontaneous Vaginal Delivery Delivery Type (Choose the 1 that will go to the History): Vaginal, Spontaneous Placenta Removal: Spontaneous Comments: small but appears intact, 2vc Disposition: Pathology Presentation and Position Presentation: Vertex Gia Martínez MD NISTRATIVE JUDGE Plan of Care - Trinity Burton RN [...] update provider with any questions or concerns. NISTRATIVE JUDGE Provider Notification - Trinity Burton RN - 10/29/2021 3:15 AM ADMINISTRATIVE JUDGE 10/29/21 0154 Provider Notification Provider Name/Title Dr. Mejia Method of Notification At Bedside Request Evaluate in Person Notification Reason Labor Status;SVE SVE and provider unable to evaluate cervix due to velez balloon being in place. Provider gently tugged on velez balloon and still in place. Will continue to monitor and continue with plan of care. NISTRATIVE JUDGE Plan of Care - Anabel Busby RN [...] their baby had passed. Patient planning for first aid nurse to visit after delivery and requesting catholic. Will continue with current plan of care. NISTRATIVE JUDGE Provider Notification - Anabel Busby RN - [...] Tre parrish applied. WIll continue to monitor. NISTRATIVE JUDGE Plan of Care - Bianka Hutson RN - 10/28/2021 3:54 PM CST Patient is here for Induction for trisomy 18. She and her spouse are coping well. They desire to hold the baby boy and to have mementos. They would like the [place] after the baby is born to do a prayer and blessing. The child advocate gave them lots of resources to help with talking to their daughter bout knowing she had a baby brother who passed as a baby as she gets older NISTRATIVE JUDGE documented in this encounter Plan of Treatment Not on filedocumented as of this encounter Procedures Procedure Name Priority Date/Time Associated Comments Diagnosis PLACENTA PATH ORDER Routine 10/29/2021 12:49 Resu lts for this AND INDICATIONS PM ADMINISTRATIVE JUDGE procedure ar e in the results section. CBC WITH PLATELETS Routine 10/28/2021 9:21 PM Res ults for this ADMINISTRATIVE JUDGE procedure are i n the results section. TYPE AND SCREEN, Routine 10/28/2021 10:23 Results for this ADULT AM ADMINISTRATIVE JUDGE procedure are i n the results section. ABO/RH TYPE AND Routine 10/28/2021 10:23 Results for this SCREEN AM ADMINISTRATIVE JUDGE procedure are i n the results section. CBC WITH PLATELETS Routine 10/28/2021 10:23 Resul ts for this AM ADMINISTRATIVE JUDGE procedure are i n the results section. COVID-19 VIRUS STAT 10/28/2021 10:05 Results f or this (CORONAVIRUS) BY PCR AM ADMINISTRATIVE JUDGE procedu re are in the results section. [...] path order and indications (10/29/2021 12:49 PM ADMINISTRATIVE JUDGE) Component Value Ref Test Analysis Performed At [facility] gist Range Method Time Signature Case Report Peds Surgical Pathology Repo rt ?Case: [id number] ? 03/11/2022 [facility] Authorizing Provider: ??Brendon sherman, Lin Tran MD ?Collected: ? 10/29/2021 12:49 PM ? 9:43 PM LABORATOR Y Ordering Location: ? [facility] ?Received: ?10/30/2021 11:00 AM ? CDT ? [...] LABORATORY this testing was CDT completed at [facility] Case Images 03/11/2022 UU 9:43 PM LABORATORY CDT Specimen Anatomical Collection Method Collection Time Receive d Time (Source) Location / / Volume Laterality Placenta PLACENTAL Non-blood 10/29/2021 12:49 10/30/2021 STRUCTURE / Collection / PM ADMINISTRATIVE JUDGE 11:00 AM ADMINISTRATIVE JUDGE Unknown Unknown Lin Lemon MD LAB - JENI LUGO Performing Organization Address City/State/ZIP Code Phon [place] [address] Lab [address] [facility], Room 3580 [place], [place] [phone] [facility] Lab [id number], Room [address] (ABNORMAL) CBC with platelets (10/28/2021 9:21 PM ADMINISTRATIVE JUDGE) [facility] gist Method Time Signature WBC Count 9.6 4.0 - 11.0 10/28/2021 UR LABORATORY 10e3/uL 9:28 PM ADMINISTRATIVE JUDGE RBC Count 3.62 (L) 3.80 - 10/28/2021 UR LABORATORY 5.20 9:28 PM ADMINISTRATIVE JUDGE 10e6/uL Hemoglobin 11.1 (L) 11.7 - 10/28/2021 UR LABORATORY 15.7 g/dL 9:28 PM ADMINISTRATIVE JUDGE Hematocrit 32.7 (L) 35.0 - 10/28/2021 UR LABORATORY 47.0 % 9:28 PM ADMINISTRATIVE JUDGE MCV 90 78 - 100 10/28/2021 UR LABORATORY fL 9:28 PM ADMINISTRATIVE JUDGE MCH 30.7 26.5 - 10/28/2021 UR LABORATORY 33.0 pg 9:28 PM ADMINISTRATIVE JUDGE MCHC 33.9 31.5 - 10/28/2021 UR LABORATORY 36.5 g/dL 9:28 PM ADMINISTRATIVE JUDGE RDW 12.7 10.0 - 10/28/2021 UR LABORATORY 15.0 % 9:28 PM ADMINISTRATIVE JUDGE Platelet Count 229 150 - 450 10/28/2021 UR LABORATORY 10e3/uL 9:28 PM ADMINISTRATIVE JUDGE Specimen Anatomical Collection Method / Collection Time Recei chelsey Time (Source) Location / Volume Laterality Blood STRUCTURE OF LEFT Venipuncture / 10/28/2021 9:21 10/28 9:26 HAND / Unknown Unknown PM ADMINISTRATIVE JUDGE PM ADMINISTRATIVE JUDGE Anastasia Mejia MD LAB - BLOOD ORDERABLES Performing Organization Address City/State/ZIP Code Phon e Number UR LABORATORY [facility] [place] [address] Care Lab [address] [place] [address], Room [address]309 Adult Type and Screen (10/28/2021 10:23 AM ADMINISTRATIVE JUDGE) Patholo gist Method Time Signature ABO/RH(D) O POS 10/28/2021 UR BLOOD 10:00 AM BANK ADMINISTRATIVE JUDGE Antibody Negative Negative 10/28/2021 UR BLOOD Screen 10:00 AM BANK ADMINISTRATIVE JUDGE SPECIMEN [id number] 10/28/2021 UR BLOOD EXPIRATION 10:00 AM BANK DATE ADMINISTRATIVE JUDGE Specimen Anatomical Collection Method / Collection Time Recei chelsey Time (Source) Location / Volume Laterality Blood STRUCTURE OF LEFT Venipuncture / 10/28/2021 10:23 10/08 HAND / Unknown Unknown AM ADMINISTRATIVE JUDGE 10:46 AM ADMINISTRATIVE JUDGE Anastasia Mejia MD LAB - BLOOD BANK TEST ORDER Performing Organization Address City/State/ZIP Code Phon e Number UR BLOOD BANK [facility] [place] [address] [facility] Lab [address] [place] [address], Room M301 CBC with platelets (10/28/2021 10:23 AM ADMINISTRATIVE JUDGE) P athologist Signature WBC Count 8.4 4.0 - 11.0 10/28/2021 UR CHILDREN 10e3/uL 10:53 AM ADMINISTRATIVE JUDGE LABORATORY RBC Count 3.94 3.80 - 10/28/2021 [facility] 5.20 10:53 AM ADMINISTRATIVE JUDGE LABORATORY 10e6/uL Hemoglobin 12.0 11.7 - 10/28/2021 UR [facility] 15.7 g/dL 10:53 AM ADMINISTRATIVE JUDGE LABORATORY Hematocrit 36.7 35.0 - 10/28/2021 UR [facility] 47.0 % 10:53 AM ADMINISTRATIVE JUDGE LABORATORY MCV 93 78 - 100 10/28/2021 [facility]DR[facility] fL 10:53 AM ADMINISTRATIVE JUDGE LABORATORY MCH 30.5 26.5 - 10/28/2021 UR [facility] 33.0 pg 10:53 AM ADMINISTRATIVE JUDGE LABORATORY MCHC 32.7 31.5 - 10/28/2021 UR [facility] 36.5 g/dL 10:53 AM ADMINISTRATIVE JUDGE LABORATORY RDW 12.9 10.0 - 10/28/2021 UR [facility] 15.0 % 10:53 AM ADMINISTRATIVE JUDGE LABORATORY Platelet Count 247 150 - 450 10/28/2021 [facility] 10e3/uL 10:53 AM ADMINISTRATIVE JUDGE LABORATORY Specimen Anatomical Collection Method / Collection Time Recei chelsey Time (Source) Location / Volume Laterality Blood STRUCTURE OF LEFT Venipuncture / 10/28/2021 10:23 10/08 HAND / Unknown Unknown AM ADMINISTRATIVE JUDGE 10:46 AM ADMINISTRATIVE JUDGE Anastasia Mejia MD LAB - BLOOD ORDERABLES Performing Organization Address City/State/ZIP Code Phon e Number [facility] [place] [address] [place] [address] [facility] [place], [place] [phone], [place] Asymptomatic COVID-19 Virus (Coronavirus) by PCR Nose (10/28/2021 10:05 AM ADMINISTRATIVE JUDGE) Analysis Performed At Patho logist Time Signature SARS CoV2 PCR Negative Negative 10/28/2021 UR LABORATORY 10:40 AM ADMINISTRATIVE JUDGE Comment: NEGATIVE: SARS-CoV-2 (COVID-19) RNA not detected, presumed negative. Specimen Anatomical Collection Method Collection Time Receive d Time (Source) Location / / Volume Laterality Swab NASAL STRUCTURE / Non-blood 10/28/2021 10:05 2021 Unknown Collection / AM ADMINISTRATIVE JUDGE 10:12 AM ADMINISTRATIVE JUDGE Unknown Narrative UR LABORATORY - 10/28/2021 10:40 AM ADMINISTRATIVE JUDGE Testing was performed using the slim?? SARS-CoV-2 [...] exposure or clinical presentation sugges ts COVID-19. ??[facility] Laboratories are certified under the Clinical Laborat ory Improvement Amendments of 1988 (CLIA-88) as qualified to perform moderate and/or high complexity laboratory testing. Anastasia Mejia MD LAB - MICRO GENERAL ORDERABL ES Performing Organization Address City/State/ZIP Code Phon [place] [address] Care Lab [address] [facility], Room M309 Rubella Antibody IgG (External Result) (07/25/2021 12:00 PM CDT) [facility] [email or web address] Method Time Signature Rubella Nonreactive Nonreactive [facility] Antibody IgG [facility] (External) Comment: 10 Specimen (Source) Anatomical Collection Method Collection Time Re ceived Time Location / / Volume Laterality 07/25/2021 12:00 PM CDT [facility] LAB - HIM EXTERNAL RESULT Performing Organization Address City/State/ZIP Code Phon e Number [address] [address] Hepatitis B Surface Antigen (External Result) (07/25/2021 12:00 PM CDT) [facility] Method Time Signature Hepatitis B Nonreactive Nonreactive [facility] Antigen (External) Specimen (Source) Anatomical Collection Method Collection Time Re ceived Time Location / / Volume Laterality 07/25/2021 12:00 PM CDT January [facility] LAB - HIM EXTERNAL RESULT Performing Organization Address City/[facility]/ZIP Code Phon e Number [facility] [address] [place] [address] HIV-1 Antibody (External Result) (07/25/2021 12:00 PM CDT) [facility] gist Method Time Signature HIV 1&2 Negative Nonreactive [facility] (External) Specimen (Source) Anatomical Collection Method Collection Time Re ceived Time Location / / Volume Laterality 07/25/2021 12:00 PM CDT January [facility] LAB - [facility] EXTERNAL RESULT Performing Organization Address [facility] Code Phon e Number [facility] [address] [place] [address] documented in this encounter Visit Diagnoses Diagnosis Encounter for induction of labor documented in this encounter Admitting Diagnoses Diagnosis Encounter for induction of labor documented in this encounter Administered Medications Inactive Administered Medications - up to 3 most recent administrations Medication Order MAR Action Action Date Dose Rate Site acetaminophen (TYLENOL) tablet 650 Given 10/28/2021 6:26 PM ADMINISTRATIVE JUDGE 650 mg mg 650 mg, Oral, EVERY 4 HOURS PRN, mild pain, fever, greater than or equal to 38?? C /100.4?? F (oral) or 38.5?? C/ 101.4?? F (core)., Starting on 10/28/21 at 1039, Maximum acetaminophen dose from all sources = 75 mg/kg/day not to exceed 4 grams/day., Intrapartum acetaminophen (TYLENOL) tablet 975 mg Given 10/29/2021 9:06 AM ADMINISTRATIVE JUDGE 975 mg 975 mg, Oral, EVERY 6 HOURS, First dose on 10/28/21 at 2100, Scheduled acetaminophen (TYLENOL) until delivery for Intrapartum Intra-Amniotic Infection/Inflammation (Triple I). Nurse may discontinue this order with delivery. Maximum acetaminophen dose from all sources = 75 mg/kg/day not to exceed 4 grams/day., Intrapartum Given 10/29/2021 3:47 AM ADMINISTRATIVE JUDGE 975 mg Given 10/28/2021 10:21 PM ADMINISTRATIVE JUDGE 975 mg Acetazolamide ER 500mg (HOME MED) Nos Given 10/29/2021 8:48 AM ADMINISTRATIVE JUDGE 500 mg 500 mg, Oral, 2 TIMES DAILY, First dose on 10/28/21 at 2000 Given 10/28/2021 8:19 PM ADMINISTRATIVE JUDGE 500 mg ampicillin (OMNIPEN) 2 g vial to attach to NS New Bag 3:47 AM ADMINISTRATIVE JUDGE 2 g 100 mL bag STAT, 2 g, Intravenous, EVERY 6 HOURS, First dose on 10/28/21 at 2100, Give until delivery., Indications: Skin and Soft Tissue Infection, Intrapartum New Bag 10/28/2021 8:48 PM ADMINISTRATIVE JUDGE 2 g diphenoxylate-atropine (LOMOTIL) Given 10/28/2021 12:10 PM ADMINISTRATIVE JUDGE 2 tablets 2.5-0.025 MG per tablet 2 tablet 2 tablet, Oral, EVERY 6 HOURS PRN, diarrhea, Starting on 10/28/21 at 1230, Do not exceed 8 tabs in 24 hours, Intrapartum fentaNYL (PF) (SUBLIMAZE) 100 MCG/2ML in jection Starting on 10/28/21 at 1645, For 1 dose, Radames Busby ie: cabinet override fentaNYL (PF) (SUBLIMAZE) injection 100 mcg Given 10/28/2021 4:47 PM ADMINISTRATIVE JUDGE 100 mcg 100 mcg, Intravenous, ONCE, On 10/28/21 at 1700, For 1 dose fentaNYL (SUBLIMAZE) 2 mcg/mL, New Syringe/Cartridge 10/28/2021 5:34 PM ADMINISTRATIVE JUDGE ROPivacaine (NAROPIN) 0.1% in NaCl 0.9% for [...] pharmacy to send epidural tubing set., Routine [id number]-[id number]-AV 0.4-0.1-0.9 MG/2 00ML-% injection Angeline Heck: cabinet override Absolutely no anticoagul ants, thrombolytics or antiplatelet medications or other opioid analgesics or other sedatives without prior notification of anesthesiology. Fo r CADD cassettes, pharmacy to send epidural tubing set., 1 dose, Starting on 10/28/21 at 1703, Until 10/28/21 at 1734 gentamicin (GARAMYCIN) 140 mg in sodium New Bag 10/28/2021 9:29 PM ADMINISTRATIVE JUDGE 140 mg chloride 0.9 % 50 mL intermittent infusi on STAT, 140 mg (rounded from 132 mg = 2 mg/kg ? 66 kg Adjusted weight), Intravenous, ONCE, On 10/28/21 at 2100, For 1 dose, LOADING DOSE., Indications: Skin and Soft Tissue Infection, Intrapartum gentamicin (GARAMYCIN) infusion 100 mg New Bag 10/29/2021 6:08 AM ADMINISTRATIVE JUDGE 100 mg Routine, 100 mg (rounded from 99 mg = 1.5 mg/kg ? 66 kg Adjusted weight), Intravenous, EVERY 8 HOURS, First dose on 10/29/21 at 0500, Starting 8 hours after loading dose. Give until delivery., Indications: Skin and Soft Tissue Infection, Intrapartum HYDROmorphone (DILAUDID) injection 0.4 m g Given 10/28/2021 4:11 PM ADMINISTRATIVE JUDGE 0.4 mg 0.4 mg, Intravenous, EVERY 2 HOURS PRN, severe pain, with induction procedure., Starting on 10/28/21 at 1040, Intrapartum lactated ringers BOLUS 250 mL Rate/Dose Change 10/29/2021 5:37 AM ADMINISTRATIVE JUDGE Intravenous, 250 mL, ONCE PRN, other, hypotension, [...] ringers infusion New Bag 10/29/2021 2:32 AM ADMINISTRATIVE JUDGE 125 mL/hr at 25-125 mL/hr, Intravenous, CONTINUOUS PRN, Titrate lactated ringers rate to obtain total IV intake of 125 mL/hr. Total IV fluids should not exceed 125 mL/hr without provider order., Intrapartum, Starting on 10/28/21 at 1909, Until 10/29/21 at 0958 lactated ringers injection New Bag 10/28/2021 5:38 PM ADMINISTRATIVE JUDGE 1,000 mLs 125 mL/hr Angeline Busby: cabinet override, 1 dose, Starting on 10/28/21 at 1630, Until 10/28/21 at 1738 lactated ringers injection New Bag 10/28/2021 4:38 PM ADMINISTRATIVE JUDGE 1,000 mLs 999 mL/hr Angeline Busby: cabinet override, 1 dose, Starting on 10/28/21 at 1630, Until 10/28/21 at 1638 lamoTRIgine (LaMICtal) tablet 400 mg Given 10/29/2021 8:48 AM CS T 400 mg Pt-Supplied 400 mg, Oral, 2 TIMES DAILY, First dose (after last modification) on 10/28/21 at 2000, Patient to take home supply Given 10/28/2021 8:19 PM ADMINISTRATIVE JUDGE 400 mg Levetiracetam 1000mg tablet (HOME MED) A ur Given 10/29/2021 8:48 AM ADMINISTRATIVE JUDGE 1,000 mg 1,000 mg, Oral, 2 TIMES DAILY, First dose on 10/28/21 at 2000 Given 10/28/2021 8:20 PM ADMINISTRATIVE JUDGE 1,000 mg miFEPRIStone (MIFEPREX) tablet 200 mg Given 10/28/2021 12:11 PM ADMINISTRATIVE JUDGE 200 mg 200 mg, Oral, ONCE, On [...] tablet 400 mcg Given 10/28/2021 3:56 PM ADMINISTRATIVE JUDGE 400 mcg 400 mcg, Vaginal, EVERY 3 HOURS, First dose on 10/28/21 at 1300, Place in the posterior vaginal fornix. First dose to be administered concurrently with miFEPRIStone., Intrapartum Given 10/28/2021 12:09 PM ADMINISTRATIVE JUDGE 400 mcg nalbuphine (NUBAIN) injection 2.5-5 mg [...] mL/hr units in 500 mL 0.9% AM ADMINISTRATIVE JUDGE NaCl infusion 1-24 jose-units/min (1-24 mL/hr), Intravenous, [...] medication., Intrapartum Rate/Dose Change 10/29/2021 4:42 AM ADMINISTRATIVE JUDGE 18 jose-units/min 18 mL/hr Rate/Dose Change 10/29/2021 3:30 AM ADMINISTRATIVE JUDGE 16 jose-units/min 16 mL/hr phenylephrine (CELIA-SYNEPHRINE) 100 mcg/m L injection Starting on 10/28/21 at 1703, For 1 dose, Radames Busby ie: cabinet override Vesicant. phenylephrine (CELIA-SYNEPHRINE) injection 100 Given 6:41 PM ADMINISTRATIVE JUDGE 100 mcg mcg 100 mcg, Intravenous, EVERY [...] doses. Vesicant., Intrapartum Given 10/28/2021 6:34 PM ADMINISTRATIVE JUDGE 100 mcg documented in this encounter Active and Recently Administered Medications Times are shown in ADMINISTRATIVE JUDGE. Scheduled Medication Order 10/27/2021 10/28/2021 10/29/2021 acetaminophen (TYLENOL) tablet 975 mg (CANCELED) 2220 (Given - Provider: Anabel Busby RN - Comment: Per brenda PUENTES to give dose 4 hours post 650 mg dose) 346 (Given - Provider: Trinity albarado RN)09 (Given [...] (New Bag - Provider: Anabel Busby RN) 346 (New Bag - Provider: Trinity Burton RN)0900 [...] fentaNYL (PF) (SUBLIMAZE) injection 100 mcg (COMPLETED) 1646 (Given - Provider: Anabel Busby RN) 100 [...] Busby RN) 0848 (Given - Provider: Bianka mojica, SOHEILA) 400 mg, Oral, 2 TIMES DAILY, First dose (after last modification) on 10/28/21 at 2000, Patient to take home supply Levetiracetam 1000mg tablet (HOME MED) Aur 2019 (Given - Provider: Anabel Busby RN) 0848 (Given - Provider: Bianka mojica, SOHEILA) 1,000 mg, Oral, 2 TIMES DAILY, First [...] 500 mL 0.9% NaCl infusion (CA NCELED) 1841 (Hold - Provider: Anabel Busby RN - Reason: Order parameters not met)2005 (New Bag - Provider: Anabel Busby RN)2106 (Rate/Dose Change - Provider: Anabel Busby RN)214 (Rate/Dose Change - Provider: Anabel Busby RN) 001 (Rate/Dose Change - Provider: Trinity Burton, SOHEILA)0200 (Rate/Dose Change - Provider: Trinity Burton RN)0242 (Rate/Dose Change - Provider: Trinity Burton RN)0330 (Rate/Dose Change - Provider: Trinity Burton, SOHEILA) 1-24 jose-units/min (1-24 mL/hr), Intra venous, CONTINUOUS, Starting on 10/28/21 at 1930, Start infusion at 2 jose-units/min. Increase by 2 jose- units/min every 30 minutes until contractions are 2- 2 222 (Rate Change (Transfusion) - Provider: Anabel Busby RN) 0442 (Rate/Dose Change - Provider: Trinity Burton RN)0538 (Rate/Dose Change - Provider: Trinity Burton, SOHEILA)0748 (Stopped - Provider: Bianka Hutson RN) 3 [...] 100 mcg (CANCELED) 1833 (Given - Provider: Aanbel Busby, RN)1840 (Given - Provider: Anabel Busby, [...] after each naloxone dose. Consider transfer to [facility] if patient respiratory parameters hav e not [...] doses.
documented in this encounter Care Teams Accounts Receivable Executive Relationship Specialty Start Date End Date [facility] PCP - General 09/05/17 [address] [facility] [place], [place] [phone] Gia Martínez MD Assigned OBGYN Provider 10/29/21 [address] [facility] [address] [place] [address] documented as of this encounter
--- OUTSIDE RECORDS SUMMARY | 2022-08-17 09:20 | XMS_ITS | Encounter Summary ---
:1985 Author Organization [place] Address [address] [place] [address]. [place] [address] Care Team Providers Name Role Phone [facility] Primary Care Provider [phone] Gia Martínez MD Unavailable [phone] Encounter Details Date Type Department Care Team Description 11/21/[address] [facility] Gia Martínez MD [address] [place] [address] [address] [place] [address] [place] [address] [phone] Social History Tobacco Use Types Packs/Day Years Used Date Smoking Tobacco: Never Smokeless Tobacco: Never Alcohol Use Standard Drinks/Week Comments Not Currently 0 (1 standard drink = 0.6 oz pure alcoho l) occ Sex Assigned at Date Recorded Not on file COVID-19 Exposure Response Date Recorded In the last month, have you been in contact with No / Unsure 10/28/2021 8:34 AM DIRECTOR PUBLIC SERVICE someone who was confirmed or suspected to [...] 10:33 AM CDT RN attempting to contact payment specialist about this case. Liyah Loza RN [...] today to update her. 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 Can you help with the coding request? I don't know what they are talking about. Thanks, Gia Martínez MD CTOR PUBLIC SERVICE Telephone Encounter - Liyah Loza RN - [...] Trinity can be updated. Liyah Loza RN CTOR PUBLIC SERVICE documented in this encounter Plan of Treatment Not on filedocumented as of this encounter Visit Diagnoses Not on filedocumented in this encounter Care Teams Fitting Room Maintenance Mechanic Relationship Specialty Start Date End Date [facility] PCP - General 09/05/17 [address] [place], [place] [phone] Gia Martínez MD Assigned OBGYN Provider 10/29/[address] [facility] [address] [place] [address] documented as of this encounter
--- OUTSIDE RECORDS SUMMARY | 2022-08-17 09:20 | XMS_ITS | Encounter Summary ---
:1985 Author Organization [place] Address [address] [place] [address]. [place] [address] Care Team Providers Name Role Phone [facility] Primary Care Provider [phone] Reason for Visit Reason Comments Ultrasound L2 - abnormal US on outside clinic Encounter Details Date Type Department Care Team Description 10/26/2021 PRE VISIT [facility] Ariadna Cavazos, Ultraso und (L2 - Maternal Medicine RN abno rmal US on outside [facility]) [address] [place], [place] [address] Social History Tobacco Use Types [...] on filedocumented in this encounter Care Teams Rigging Up Worker Relationship Specialty Start Date End Date [facility] PCP - General 09/05/17 [address] [place], [place] [phone] documented as of this encounter
--- OUTSIDE RECORDS SUMMARY | 2022-08-17 09:20 | XMS_ITS | Encounter Summary ---
:1985 Author Organization [place] Address [facility] [place] [address] Care Team Providers Name Role Phone [facility] Primary Care Provider [phone] Reason for Visit Reason Comments Ultrasound L2 - multiple abnormalities from outside ultrasound Encounter Details Date Type Department Care Team Description 10/26/2021 Office Visit [facility], complicated Maternal Shirley A by congenital Medicine Center [facility] heart disea se, single [facility] or unspecified fetus [address] [facility] (Primary Dx) [place], [place] [address] [place], [place] [phone] Social History Tobacco Use Types Packs/Day Years Used Date Smoking Tobacco: Never Alcohol Use Standard Drinks/Week Comments Yes 0 (1 standard drink = 0.6 oz pure alcoho l) occ Sex Assigned at Date Recorded Not on file COVID-19 Exposure Response Date Recorded In the last month, have you been in contact with No / Unsure 10/26/2021 1:52 PM METAL CLEANER someone who was confirmed or suspected to have Coronavirus / COVID-19? documented as of this encounter Progress Notes Ce Andersen MD - 10/26/2021 2:00 PM CST Please see the imaging tab for details of the ultrasound performed today. Ce Andersen MD Specialist in Maternal- Medicine L CLEANER documented in this encounter Plan of Treatment Not on filedocumented as of this encounter Visit Diagnoses Diagnosis complicated by congenita l heart disease, single or unspecified fetus - Primary documented in this encounter Care Teams Fuel Distribution System Operator Relationship Specialty Start Date End Date [facility] PCP - General 09/05/17 [address] [address] [place], [place] [phone] documented as of this encounter
--- OUTSIDE RECORDS SUMMARY | 2022-08-17 09:20 | XMS_ITS | Encounter Summary ---
:1985 Author Organization [place] Address [address] [place] [address] Care Team Providers Name Role [facility] Primary Care Provider [phone] Reason for Visit Reason Onset Date Comments social work referral 10/27/2021 Encounter Details Date Type Department Care Team Description 10/27/2021 Telephone [facility] CASE MANAGEMENT social Jennifer work referral [id number] ATUL Gonzalez Social History Tobacco Use Types Packs/Day Years Used Date Smoking Tobacco: Never Alcohol Use Standard Drinks/Week Comments Yes 0 (1 standard drink = 0.6 oz pure alcoho l) occ Sex Assigned at Date Recorded Not on file COVID-19 Exposure Response Date Recorded In the last month, have you been in contact with No / Unsure 10/26/2021 1:52 PM MARINE ENGINE MECHANIC someone who was confirmed or suspected to have Coronavirus / COVID-19? documented as of this encounter Miscellaneous Notes Telephone Encounter - Mei Rodriguez LICSW - 10/27/2021 12:05 PM MARINE ENGINE MECHANIC Received referral with request for social work to contact patient this afternoon to discuss her wishes related to disposition after delivery. Phone call to patient. No answer but message left with my direct contact information. VIOLETA informed patient on the voice mail that I am available until 4:30 today and encouraged her to give me a call back. NE ENGINE MECHANIC documented in this encounter Plan of Treatment Not on filedocumented as of this encounter Visit Diagnoses Not on filedocumented in this encounter Care Teams Supervisor Drying And Winding Relationship Specialty Start Date End Date [place] PCP - General 09/05/17 [address] [address] [place], [place] [phone] documented as of this encounter
--- OUTSIDE RECORDS SUMMARY | 2022-08-17 09:20 | XMS_ITS | Encounter Summary ---
:1985 Author Organization [place] Address [address] [place] [address]. [place] [address] Care Team Providers Name Role Phone [facility] Primary Care Provider [phone] Encounter Details Date Type Department Care Team [...] with No / Unsure 10/28/2021 8:34 AM SPECIALIST PHYSICIAN someone who was confirmed or suspected to have Coronavirus / COVID-19? documented as of this encounter Plan of Treatment Not on filedocumented as of this encounter Visit Diagnoses Not on filedocumented in this encounter Care Teams Filler Shaker Relationship Specialty Start Date End Date [facility] PCP - General 09/05/17 [address] [place], [place] [phone] documented as of this encounter
--- OUTSIDE RECORDS SUMMARY | 2022-08-17 09:20 | XMS_ITS | Encounter Summary ---
:1985 Author Organization [place] Address [address] [place] [address]. [place] [address] Care Team Providers Name Role Phone [facility] Care Provider [phone] Gia Martínez MD Unavailable [phone] Reason for Visit Auth/Cert Specialty Diagnoses / Procedures Referred By Contact Refer red To Contact technical support 1 software engineer Diagnoses Encounter for induction of labor Maternity elizabeth: 03/07/22 IOL Encounter for induction of labor Ur [facility] [address] [place] [address] [place] [address] Phone: Referral ID Status Reason Start Date Expiration Date Visits Requ ested Visits Authorized [id number] 1 1 Encounter Details Date Type Department Care Team Description 10/28/2021 Anesthesia Event [facility] Aysha Schmitz MD [address] [place] [phone] [facility]place Charley Oliveira MD [address] [place], [place] [phone] [address] [place] [phone] Anesthesia Record Procedure Summary Procedure Name Responsible [...] Anabel Busby RN Laing, Stephanie N, Dr. Mejia; 10/29/21; RN 0604 Urethral Catheter 10/29/21; 0200; [...] with No / Unsure 10/28/2021 8:34 AM PHOTO RETOUCHER someone who was confirmed or suspected to [...] Past Surgical History: Procedure Laterality Date ??? CAKE CUTTER MACHINE SURGERY 4th degree vaginal laceration ? ? [...] and realistic alternatives discussed. Questions answered and patient/practice representative(s) expressed understanding. 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 Patient requested epidural catheter for labor, completed on10/28/[address] Oliveira. Aysha Contreras MD O RETOUCHER Anesthesia Procedure Notes - Charley Oliveira MD - 10/28/2021 6:50 PM PHOTO RETOUCHER Associated Order(s): Epidural Block Epidural catheter Procedure [...] saline NIDA at 5.5 cm. Needle Type: CleveFoundationuhy needle Needle Gauge: 17. Needle Length (Inches): 3.5 Catheter: 19 G. Catheter threaded easily. # of attempts: 1 and # of redirects: 0 Assessment/Narrative Paresthesias: No. Test dose of 3 mL lidocaine 1.5% w/ 1:200,000 epinephrine at 17:01 PHOTO RETOUCHER. Test dose negative, 3 minutes after injection, for signs of intravascular, subdural, or intrathecalinjection. Insertion/Infusion Method: LORT saline No aspiration negative for Heme or CSF via Epidural Catheter. Medication(s) Administered 0.125% bupivacaine (Epidural), 8 mL Medication Administration Time: 10/28/2021 5:03 PM O RETOUCHER documented in this encounter Plan of Treatment Not on filedocumented as of this encounter Procedures Procedure Name Priority Date/Time Associated Diagnosis Comme nts ANE EPIDURAL BLOCK Routine 10/28/2021 5:03 PM Res ults for this PHOTO RETOUCHER procedure are i n the results section. documented in this encounter Results FV AN EPIDURAL DUMMY PERFORMABLE (10/28/2021 5:03 PM PHOTO RETOUCHER) Narrative Charley Oliveira MD - 10/28/2021 5:03 PM PHOTO RETOUCHER Charley Oliveira MD ? 10/28/2021 ??6:51 PM [...] lidocaine 1.5% w/ 1:200,000 epinephrine at 17:01 PHOTO RETOUCHER. ? Test dose negative, 3 minutes aft er injection, for signs of intravascular, subdural, or intrathecal injection. ? Insertion/Infusion Method: LORT s asher ? No aspiration negative for Heme o r CSF via Epidural Catheter. Medication(s) Administered 0.125% bupivacaine (Epidural), 8 mL Medication Administration Time: 5:03 PM Charley Oliveira MD [place] ANESTHESIA documented in this encounter Visit Diagnoses Not on filedocumented in this encounter Administered Medications Inactive Administered Medications - up to 3 most recent administrations Medication Order MAR Action Action Date Dose Rate Site bupivacaine (MARCAINE) 0.125 % Given 10/28/2021 5:03 PM PHOTO RETOUCHER 8 mL s injection (diluted from stock concentration by or DRILL RUNNER) EPIDURAL, Starting on 10/28/21 at 1703, Anesthesia Intra-op documented in this encounter Care Teams Drill Runner Relationship Specialty Start Date End Date [facility] PCP - General 09/05/17 [address] [address] [place], [place] [phone] Gia Martínez MD Assigned OBGYN Provider 10/29/[address] [place], [place] [address] documented as of this encounter
--- OUTSIDE RECORDS SUMMARY | 2022-08-17 09:20 | XMS_ITS | Clinical Summary ---
:1985 Author Organization [facility] [place] [address] Care Team Providers Name Role Phone Juan [...] Type Group BLUE CROSS BL[employer] OF [id number] 2018-Present [address] [address] [place] [address] Care Teams Personal Protection Specialist Relationship Specialty Start Date End Date Juan Alberto Jackson MD PCP - General 09/20/08
--- OUTSIDE RECORDS SUMMARY | 2022-08-17 09:21 | XMS_ITS | Encounter Summary ---
:1985 Author Organization [place] Address [address] [place] [address]. [place] [address] Care Team Providers Name Role Phone Unavailable Primary Care Provider Unavailable Encounter Details Date Type Department Care Team Description 07/24/2007 Emergency room Melisa Barton MD EMERGENCY PHYSIC VIGN[facility] INMAN [address] [facility] [address] [place], [place] [address] (Wo rk) Social History Tobacco Use Types Packs/Day Years Used Date Smoking Tobacco: Never Assessed Sex Assigned at Date Recorded [...] MARIO#[id number] Name: TRINITY AYALA MRN: [id number] Account: [id number] : 1985 Visit Date: 07/24/2007 Document: [id number] documented in this encounter Plan of Treatment Not on filedocumented as of this encounter Visit Diagnoses Not on filedocumented in this encounter
--- OUTSIDE RECORDS SUMMARY | 2022-08-17 09:21 | XMS_ITS | Encounter Summary ---
:1985 Author Organization [place] Address [address] [place] [address]. [place] [address] Care Team Providers Name Role Phone [facility] Primary Care Provider Encounter Details Date Type Department Care Team Description 10/23/[address] [facility] Scan, MATERNAL Health Info Mgmt Non-Provider MEDICINE CE NTER [facility] Srvcs PROVIDER SERVICE [address] [place] [address] [place] [address] [facility] [phone] AND CLINICS Social History Tobacco Use Types [...] on filedocumented in this encounter Care Teams Follow Up Specialist Relationship Specialty Start Date End Date [facility] Medical PCP - General 09/05/17 [address] [address] [place], [place] [phone] documented as of this encounter
--- OUTSIDE RECORDS SUMMARY | 2022-08-17 09:21 | XMS_ITS | Encounter Summary ---
:1985 Author Organization [place] Address [address] [place] [address] Care Team Providers Name Role Phone Unavailable Primary Care Provider Unavailable Encounter Details Date Type Department Care Team Description 10/13/2007 Historic Results INTERFACED REPORT Tobi Kirkpatrick [address] [place] [address] Social History Tobacco Use Types Packs/Day Years Used Date Smoking Tobacco: Never Assessed Sex Assigned at Date Recorded Not on file documented as of this encounter Plan of Treatment Not on filedocumented as of this encounter Procedures Procedure Name Priority Date/Time Associated Comments Diagnosis HCG QUALITATIVE URINE STAT 10/13/2007 1:34 AM Results for this RUBY RAILS DEVELOPER procedure are i n the results section. ROUTINE UA WITH Routine 10/13/2007 1:34 AM Result s for this MICROSCOPIC RUBY RAILS DEVELOPER procedure are i n the results section. documented in this encounter Results HCG qualitative urine (10/13/2007 1:34 AM RUBY RAILS DEVELOPER) athologist Signature HCG Qual Urine Negative NEG MISYS Specimen Anatomical Collection Method Collection Time Receive d Time (Source) Location / / Volume Laterality 10/13/2007 1:34 AM 8 RUBY RAILS DEVELOPER 12:50 AM RUBY RAILS DEVELOPER Antonio Kirkpatrick LAB - URINE ORDERABLES Performing Organization Address City/State/ZIP Code Phon e Number MISYS (ABNORMAL) Routine UA with microscopic (10/13/2007 1:34 AM RUBY RAILS DEVELOPER) Component Value Ref Test Analysis [facility] Range Method Time Signature Source Unspecified MISYS Urine Color Urine Yellow MISYS Appearance Urine Slightly Cloudy MISYS Glucose Urine Negative NEG MISYS mg/dL Bilirubin Urine Negative NEG MISYS Ketones Urine Negative NEG MISYS mg/dL Specific [place] 1.035 1.003 - MISYS Urine 1.035 Blood [...] Volume Laterality 10/13/2007 1:34 AM 8 3:36 RUBY RAILS DEVELOPER AM RUBY RAILS DEVELOPER Antonio Kirkpatrick LAB - URINE ORDERABLES Performing Organization Address City/State/ZIP Code Phon e Number MISYS documented in this encounter Visit Diagnoses Not on filedocumented in this encounter
--- OUTSIDE RECORDS SUMMARY | 2022-08-17 09:21 | XMS_ITS | Encounter Summary ---
:1985 Author Organization [place] Address [address] [place] [address] Care Team Providers Name Role Phone Unavailable Primary Care Provider Unavailable Reason for Visit Reason Comments Eye Problem Dizziness Encounter Details Date Type Department Care Team Description 06/16/2013 Emergency [facility] Monroe Duncan zeana weakness (Primary Dx); [facility] Emergency Dep t MD Minor Headache [address] [facility] [phone] 4994 VideoJaxPOINTE [phone] [facility] [address] [place] [address] (Wo rk) Social History Tobacco [...] documented in this encounter Discharge Instructions Discharge Monroe Ghosh MD - 06/16/2013 9:56 AM CDT Please make an appointment to follow up with your primary care provider and/or Dr. Anderson in 3-5 days if not improving. Murphy should call you if seizure medication levels [...] as directed by your healthcare provider ?? [phone] [place] [address]. All rights reserved. This information is not [...] her Keppra, so she was seen at [facility] where they edinson her Keppra [...] History: Seizures Genital herpes Past Surgical History: [place] teeth removed Tonsillectomy Family/Social History: The patient [...] Course ECG @ 8:10 Rate 57 bpm. VT interval 146 ms. QRS duration 80 ms. [...] work. The patient was placed on continuous awake overnight monitor and pulse oximetry. IV was inserted and [...] for discharge to home. We will contact [facility] concerning her seizure drug levels. I have a low suspicion for cardiac etiology or significant cranial etiology. Patient and mother are comfortable with this plan. Pt improved with interventions in ER, labs unremarkable including carbon monoxide, ecg with no ischemia or malignant arrhythmia. [facility] stated labs still pending. Pt updated on findings and comfortable going home. Diagnosis: 1. Generalized weakness 2. Headache ITommie, bobo serving as a scribe on 06/16/2013 at [...] Results Carbon monoxide (06/16/2013 8:55 AM CDT) athologist Signature Carbon Monoxide 1.2 0 - 2 % [facility] Specimen Anatomical Collection Method Collection Time Receive d Time (Source) Location / / Volume Laterality Blood specimen 06/16/2013 8:55 AM 013 8:56 (specimen) CDT AM CDT Monroe Duncan MD LAB - BLOOD ORDERABLES Performing Organization Address City/[facility]/ZIP [facility] Phon e Number [place] [address] [address] [place], [place] [address] [phone] [place] [address] LAB HCG qualitative urine (06/16/2013 8:34 AM CDT) P athologist Signature HCG Qual Urine Negative NEG [facility] Specimen Anatomical Collection Method Collection Time Receive d Time (Source) Location / / Volume Laterality Urine specimen 06/16/2013 8:34 AM 013 8:38 (specimen) CDT AM CDT Monroe Duncan MD LAB - URINE ORDERABLES Performing Organization Address City/[facility] Phon e Number [place] [address] [place], [place] [address] 7 [phone] [place] [address] LAB (ABNORMAL) UA with Microscopic (06/16/2013 8:34 AM CDT) Patholo gist Method Time Signature Color Urine Yellow [facility] Appearance Urine Slightly [place] Cloudy [facility] Glucose Urine Negative NEG mg/dL [facility] Bilirubin Urine Negative NEG [facility] Ketones Urine Negative NEG mg/dL [facility] Specific [place] 1.019 1.003 - [place] Urine 1.035 [facility] Blood Urine Small (A) NEG [facility] pH Urine 6.0 5.0 - 7.0 [place] pH [facility] Protein Albumin 10 (A) NEG mg/dL [facility] Urobilinogen Normal 0.0 - 2.0 [place] mg/dL mg/dL [facility] Nitrite Urine Negative NEG [facility] Leukocyte Small (A) NEG [place] Esterase Urine [facility] Source Midstream [facility] WBC Urine 2 0 - 2 [place] /HPF [facility] RBC Urine 1 0 - 2 [place] /[facility] Squamous 8 (H) 0 - 1 [place] Epithelial /HPF /[facility] LAB Transitional Epi <1 0 - 1 [facility] Mucous Urine Present (A) NEG /LPF [facility] Specimen Anatomical Collection Method Collection Time Receive d Time (Source) Location / / Volume Laterality Urine specimen 06/16/2013 8:34 AM 013 8:38 (specimen) CDT AM CDT Monroe Duncan MD LAB - URINE ORDERABLES Performing Organization Address City/[facility]/ZIP Code Phon e Number [facility] [address] [place], [place] [address] [facility] LAB (ABNORMAL) Basic metabolic panel (BMP) (06/16/2013 8:12 AM CDT) Analysis Performed At Patho logist Time Signature Sodium 145 (H) 133 - 144 [place] mmol/L [facility] Potassium 3.7 3.4 - 5.3 [place] mmol/L [facility] Chloride 110 (H) 94 - 109 [place] mmol/L [facility] Carbon Dioxide 21 20 - 32 [place] mmol/L [facility] Anion Gap 14 6 - 17 [place] mmol/L [facility] Glucose 85 60 - 99 [place] mg/dL [facility] Urea Nitrogen 12 5 - 24 [place] mg/dL [facility] Creatinine 1.10 (H) 0.52 [facility] 1.04 mg/dL [facility] GFR Estimate 61 >60 [place] mL/min/1.[address] LAB GFR Estimate If 73 >60 [place] Black mL/min/1.[address] [place] [address] LAB Calcium 9.1 8.5 - 10.4 [place] mg/dL [facility] Specimen Anatomical Collection Method Collection Time Receive d Time (Source) Location / / Volume Laterality Blood specimen 06/16/2013 8:12 AM 013 8:15 (specimen) CDT AM CDT Monroe Duncan MD LAB - BLOOD ORDERABLES Performing Organization Address City/[facility]/ZIP [facility] Phon e Number [facility] [address] [place], [place] [address] [facility] LAB CBC (platelets, no diff) (06/16/2013 8:12 AM CDT) P athologist Signature WBC 5.2 4.0 - 11.0 [place] 10e9/L [facility] RBC Count 4.27 3.8 - 5.2 [place] 10e12/L [facility] Hemoglobin 12.7 11.7 - [place] 15.7 g/dL [facility] Hematocrit 39.6 35.0 - [place] 47.0 % [facility] MCV 93 78 - 100 [place] fl [facility] MCH 29.7 26.5 - [place] 33.0 pg [facility] MCHC 32.1 31.5 - [place] 36.5 g/dL [facility] RDW 13.7 10.0 - [place] 15.0 % [facility] Platelet Count 272 150 - 450 [address] [facility] Specimen Anatomical Collection Method Collection Time Receive d Time (Source) Location / / Volume Laterality Blood specimen 06/16/2013 8:12 AM 013 8:15 (specimen) CDT AM CDT Monroe Duncan MD LAB - BLOOD ORDERABLES Performing Organization Address City/State/ZIP Code Phon e Number [address] 55 [facility] LAB EKG 12 lead (06/16/2013 8:10 AM [...] 25 mg 25 mg, Intravenous, ONCE, On e 06/16/13 at 0945, For 1 dose ketorolac (TORADOL) [...] 06/16/2013 diphenhydrAMINE (BENADRYL) injection 25 mg (COMPLETED) 0945 (Given - Provider: Bobbi Otero RN) 25 mg, Intravenous, ONCE, Sat06/16/13 at 0945, For 1 dose ketorolac (TORADOL) injection 30 mg (COMPLETED) 49 (Given - Provider: Bobbi Otero RN) 30 mg, Intravenous, ONCE, e 06/16/13 at 0815, For 1 dose ondansetron (ZOFRAN) injection 4 mg (COMPLETED) 49 (Given - Provider: Bobbi Otero RN) 4 mg, Intravenous, ONCE, for 2 Minutes, e 06/16/13 at 0830, For 1 dose prochlorperazine (COMPAZINE) injection 10 mg (COMPLETED) 943 (Given - Provider: Bobbi Otero RN) 10 mg, Intravenous, ONCE, Tue /10/13 at 0945, For 1 dose sodium chloride 0.9 % BOLUS 1,000 mL (COMPLETED) 0812 (New Bag - Provider: Bobbi Otero RN)1019 (Stopped - Provider: Bobbi Otero RN) Intravenous, 1,000 mL, ONCE, On Sat06/16/13 at 0815, For 1 dose documented in this encounter
--- OUTSIDE RECORDS SUMMARY | 2022-08-17 09:21 | XMS_ITS | Encounter Summary ---
:1985 Author Organization [place] Address [address] [place] [address] Care Team Providers Name Role Phone [facility] Primary Care Provider [phone] Ernestina Shah MD Unavailable Encounter Details Date Type Department Care Team Description 09/05/2017 Hospital Encounter [facility] Ernestina Shah Non intractable [facility] MD Adriana generalized idiopathic [address] 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 KEPPRA Routine 09/05/2017 7:19 Nonintractable Results fo r this (LEVETIRACETAM) LEVEL AM BREWERY CELLAR WORKER generalized idiopat hic procedure are in epilepsy with status the res ults epilepticus (H) section. COMPREHENSIVE Routine 09/05/2017 7:19 Nonintractable Results f or this METABOLIC PANEL AM BREWERY CELLAR WORKER generalized idiopathic pr ocedure are in epilepsy with status the res ults epilepticus (H) section. documented in this encounter Results (ABNORMAL) Keppra (Levetiracetam) Level (09/05/2017 7:19 AM BREWERY CELLAR WORKER) athologist Signature Keppra 2 (L) 12 - 46 09/06/2017 [facility] (Levetiracetam) ug/mL 3:44 AM [facility] Comment: (Note) INTERPRETIVE INFORMATION: Keppra (Leveti racetam) Therapeutic Range: ??12-46 ug/mL ? Toxic: ??Not well Establ ished Pharmacokinetics of levetiracetam are af fected by renal function. Adverse effects may include so mnolence, weakness, headache and vomiting. Performed by [facility], [address] [place] [address],[place] [id number] [email or web address], Francisco Rubio MD, Lab. Director Specimen Anatomical Collection Method Collection Time Receive d Time (Source) Location / / Volume Laterality Blood specimen 09/05/2017 7:19 AM 017 7:20 (specimen) BREWERY CELLAR WORKER AM BREWERY CELLAR WORKER Ernestina Shah MD LAB - BLOOD ORDERABLES Performing Organization Address [facility] Phon e Number [place] [facility] [address] [place], [place] [address] [facility] [address] [place] [phone], [facility] [phone] Lamotrigine Level (09/05/2017 7:19 AM [facility]) athologist Signature Lamotrigine 5.1 2.5 - 15.0 09/06/2017 [place] Level ug/mL 3:44 AM [facility] Comment: (Note) INTERPRETIVE INFORMATION: ??Lamotrigine Therapeutic Range: ??2.5-15.0 ug/mL ? Toxic: ??Not well establ ished Pharmacokinetics varies widely, particul leon with co-medications and/or compromised renal function. ??Adverse effects may include dizziness, somnolenc e, nausea and vomiting. Performed by [facility], [address] [place] [id number] [email or web address], Francisco Rubio MD, Lab. Director Specimen Anatomical Collection Method Collection Time Receive d Time (Source) Location / / Volume Laterality Blood specimen 09/05/2017 7:19 AM 017 7:20 (specimen) BREWERY CELLAR WORKER AM BREWERY CELLAR WORKER Ernestina Shah MD LAB - BLOOD ORDERABLES Performing Organization Address City/[facility]/ZIP Code Phon e Number [place] [facility] [address] [place], [place] [address] [facility] [address] [place] [address], [facility] [phone] (ABNORMAL) Comprehensive metabolic panel (BMP + Alb, Alk Phos, ALT, AST, Total. Bili, TP) (09/05/2017 7:19 AM [facility]) athologist Signature Sodium 141 133 - 144 09/05/2017 [facility] mmol/L 7:44 AM [facility] Potassium 3.7 3.4 - 5.3 09/05/2017 [facility] mmol/L 7:44 AM [facility] Chloride 114 (H) 94 - 109 09/05/2017 [facility] mmol/L 7:44 AM [facility] Carbon Dioxide 20 20 - 32 09/05/2017 [facility] mmol/L 7:44 AM [facility] Anion Gap 7 3 - 14 09/05/2017 [facility] mmol/L 7:44 AM [facility] Glucose 93 70 - 99 09/05/2017 [facility] mg/dL 7:44 AM [facility] Urea Nitrogen 13 7 - 30 09/05/2017 [facility] mg/dL 7:44 AM [facility] Creatinine 0.98 0.52 - 09/05/2017 [facility] 1.04 mg/dL 7:44 AM [facility] GFR Estimate 66 >60 09/05/2017 [facility] mL/min/1.7 7:[address] Comment: Non GFR Calc GFR Estimate If 80 >60 mL/min/1.7m2 09/05/2017 7:44 A M [facility] Comment: GFR Calc Calcium 8.9 8.5 - 10.1 mg/dL 09/05/2017 7:44 AM [facility] Bilirubin Total 0.6 0.2 - 1.3 mg/dL 09/05/2017 7:44 AM [facility] Albumin 4.0 3.4 - 5.0 g/dL 09/05/2017 7:44 AM [facility] Protein Total 7.4 6.8 - 8.8 g/dL 09/05/2017 7:44 AM [facility] Alkaline Phosphatase 65 40 - 150 U/L 09/05/2017 7:44 AM [facility] ALT 16 0 - 50 U/L 09/05/2017 7:44 AM [facility] AST 13 0 - 45 U/L 09/05/2017 7:44 AM [facility] KATHRINE [facility] Specimen Anatomical Collection Method Collection Time Receive d Time (Source) Location / / Volume Laterality Blood specimen 09/05/2017 7:19 AM 017 7:20 (specimen) BREWERY CELLAR WORKER AM BREWERY CELLAR WORKER Ernestina Shah MD LAB - BLOOD ORDERABLES Performing Organization Address City/State/ZIP Code Phon e Number M [facility] [address] [place], [place] [address] [facility] [address] [place], [place] [address] 7[facility] [phone] documented in this encounter Visit Diagnoses Diagnosis 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
--- OUTSIDE RECORDS SUMMARY | 2022-08-17 09:21 | XMS_ITS | Encounter Summary ---
:1985 Author Organization [place] Address [facility] [place] [address] Care Team Providers Name Role Phone [facility] Primary Care Provider [phone] Reason for Visit Reason Onset Date Comments Clinic Care Coordination - Initial 10/24/2021 Encounter Details Date Type Department Care Team Description 10/24/2021 Telephone [facility] Larissa Hernandez, Clinic Care Coordination Maternal Medicine - [facility] [address] [address] [facility] [address] [place] [phone] Social History Tobacco Use Types Packs/Day Years Used Date Smoking Tobacco: Never Alcohol Use Standard Drinks/Week Comments Yes 0 (1 standard drink = 0.6 oz pure alcoho l) occ Sex Assigned at Date Recorded Not on file documented as of this encounter Miscellaneous Notes Telephone Encounter - Larissa Hernandez, - 10/24/2021 4:30 PM CST October 24, [...] OB provider may be able to contact S directly to coordinate this care. I provided Trinity with the phone number for [facility]. I encouraged her to reach out if we can help any further. However, I reiterated that I cannot help coordinate care directly unless Trinity becomes our patient. Larissa Hernandez MS, [facility] Licensed Genetic Counselor [facility] Maternal Medicine [phone] H REPAIR PERSON Telephone Encounter - Larissa Hernandez GC - 10/24/2021 1:53 PM CST October 24, 2021 I reached out to Trinity to discuss a referral we received from her OB provider. 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 These included a heart defect, multiple choroid plexus cysts, lagging growth, possibly abnormal limbs, and other features. Trinity's OB provider edinson [id number] yesterday. Given Trinity's gestational age, we reviewed [...] Trinity does not feel that coming to [facility] and getting more imaging is going to change the course of her at this time, and she does not wish to proceed with amniocentesis. I strongly encouraged Trinity to reach back out to her OB provider to coordinate next steps. Larissa Hernandez MS, [facility] Licensed Genetic Counselor [facility] Maternal Medicine [phone] H REPAIR PERSON documented in this encounter Plan of Treatment Not on filedocumented as of this encounter Visit Diagnoses Not on filedocumented in this encounter Care Teams Outsole Compressor Relationship Specialty Start Date End Date [facility] PCP - General 09/05/17 [address] [address] [place], [place] [phone] documented as of this encounter
--- OUTSIDE RECORDS SUMMARY | 2022-08-17 09:21 | XMS_ITS | Encounter Summary ---
:1985 Author Organization [place] Address [address] [place] [address]. [place] [address] Care Team Providers Name Role Phone [facility] Primary Care Provider [phone] Encounter Details Date Type Department Care Team Description 10/24/2021 Medical Correspondence [facility] Scan, OBGYN REFERRAL Health Info [facility] Non-Provider [facility] [address] [place] [phone] Social History Tobacco Use Types Packs/Day Years Used Date Smoking Tobacco: Never Alcohol Use Standard Drinks/Week Comments Yes 0 (1 standard drink = 0.6 oz pure alcoho l) occ Sex Assigned at Date Recorded Not on file documented as of this encounter Plan of Treatment Not on filedocumented as of this encounter Visit Diagnoses Not on filedocumented in this encounter Care Teams Movie Actor Relationship Specialty Start Date End Date [facility] Medical PCP - General 09/05/17 [address] [place] [address] documented as of this encounter
--- OUTSIDE RECORDS SUMMARY | 2022-08-17 09:21 | XMS_ITS | Encounter Summary ---
:1985 Author Organization [place] Address [address] [place] [address]. [place] [address] Care Team Providers Name Role Phone [facility] Primary Care Provider [phone] Ernestina Shah MD Unavailable Gia Martínez MD Unavailable [phone] Reason for Referral - Closed Specialty Diagnoses / Procedures Referred By Contact Refer red To Contact Diagnoses related condition Alberta Beckford, [facility] [address] [place] [address] Fax: Referral ID Status Reason Start Date Expiration Date Visits Requ ested Visits Authorized [id number] Closed 07/24/2018 07/24/2019 1 1 Encounter Details Date Type Department Care Team Description 07/24/2018 [facility] Only 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 CLINIC OF NEUROLOGY [address] [facility] 100 [place], [place] [address] Gia Martínez MD Assigned OBGYN Provider 10/29/21 [address] [facility] ALEJANDRA [address] [place], [place] [address] documented as of this encounter
--- OUTSIDE RECORDS SUMMARY | 2022-08-17 09:21 | XMS_ITS | Encounter Summary ---
:1985 Author Organization [place] Address [address] [place] [address]. [place] [address] Care Team Providers Name Role Phone [facility] Primary Care Provider [phone] Reason for Visit Auth/Cert - Closed Specialty Diagnoses / Procedures Referred By Contact Refer red To Contact Surgery Diagnoses Chronic Tonsilitis Rh Periop Services Procedures TONSILLECTOMY [address] [place], [place] [address] Phone: Fax: Referral ID Status Reason Start Date Expiration Date Visits Requ ested Visits Authorized [id number] Closed 1 1 Encounter Details Date Type Department Care Team Description 02/18/2013 Surgery [facility] Jacinta Loya MD Tonsillectomy PeriOp Services [facility] [address] A[address] [place] [address] [place] [address] [phone] (Wo rk) Surgery Details Date/Time Status Location OR Service Patient Case Case Traum a Class Class Type Case? 02/18/13 12:45 Posted OR OR Otolaryngology Same Day PM Surgery Panel 1 [...] ML AT 2:10 PM TONSILLECTOMY DISCHARGE INSTRUCTIONS [facility], Akbar Guzman M.D. Phill Kahn M.D. [...] It is best to stay in the [facility] area for the two week healing [...] have any problems or questions, please call [phone], 24 hours a day. GENERAL ANESTHESIA OR [...] Component Value Ref Test Analysis Performed At [facility] Method Time Signature Copath Report Patient Name: TRINITY AYALA MR#: [id number] Specimen #: [id number] Collected: 02/18/2013 Received: 02/18/2013 Reported: 02/19/2013 16:17 [...] serial sections, no gross lesions are identified. ??Analytic Manager section is submitted in one cassette. B. ??The specimen, labeled left tonsil, consists of formal in-fixed morin to pink to hemorrhagic soft palatine tonsil measuring 2.5 cm x 1.5 cm x 1 cm. ??On serial sections, no gross lesions are identified. Analytic Manager section is submitted in one cassette. ??MGP/s g MICROSCOPIC: A. and B. ??Microscopic examination is performed. SA/andreea DT/02-19-13 TESTING LAB LOCATION: [facility] [address] [address] [place], [place] ??[address] COLLECTION SITE: Client: [facility] Location: RHOR (R) Specimen Anatomical Collection Method Collection Time Receive d Time (Source) Location / / Volume Laterality 02/18/2013 1:15 PM 3 1:45 CDT PM CDT Tomasz Loya MD LAB - BEAKER AP Performing Organization Address City/State/ZIP [facility] [place]on e Number [place] HCG qualitative urine (02/18/2013 10:10 AM CDT) P athologist Signature HCG Qual Urine Negative NEG [facility] LAB Specimen Anatomical Collection Method Collection Time Receive d Time (Source) Location / / Volume Laterality Urine specimen URINE SPECIMEN / 02/18/2013 10:10 02/18 (specimen) Unknown AM CDT 10:23 AM CDT Allan Garrett MD LAB - URINE ORDERABLES Performing Organization Address City/[facility] Phon e Number [place] [address] [address] [place] [address] [facility] documented in this encounter Visit [...] PRN, moderate to severe pain, Starting on 5/15/13 at 1410, PACU/Phase II sterile water (bottle) Given 02/18/2013 1:23 PM 1,000 mLs Operative irrigation CDT Site/Surgical S ite PRN, Intra-procedure, Starting on Sat02/18/13 at 1323, Until Sat02/18/13 at 1845 documented in this encounter Active and Recently Administered Medications Times are shown in CDT. PRN Medication Order 02/16/2013 02/17/2013 02/18/2013 fentaNYL (SUBLIMAZE) injection 25-50 mcg (CANCELED) 1400 (Given - Provider: Ness Pineda, RN)1417 (Given - Provider: Ness Pineda RN) [...] Intra-procedure documented in this encounter Care Teams Legal Services Professional Relationship Specialty Start Date End Date [facility] PCP - General 02/04/13 06/15/13 documented as of this encounter
--- OUTSIDE RECORDS SUMMARY | 2022-08-17 09:21 | XMS_ITS | Encounter Summary ---
:1985 Author Organization [place] Address [address] [place] [address]. [place] [address] Care Team Providers Name Role Phone Unavailable Primary Care Provider Unavailable Encounter Details Date Type Department Care Team Description 11/10/2007 Emergency room Casimiro Antonio Lopez [address] [place] [address] Social History Tobacco Use Types Packs/Day Years Used Date Smoking Tobacco: Never Assessed Sex Assigned at Date Recorded Not on file documented as of this encounter Progress Notes Interface, Soybean Grower - 11/11/2007 3:54 PM SUPPLY CHAIN PROCUREMENT MANAGER FINAL CHIEF COMPLAINT: I had a seizure. HISTORY OF PRESENT ILLNESS: A 22-year-old female with history of seizure disorder presents with [facility] for evaluation of seizure. The patient [...] Electronically signed on 11/11/2007 15:53 by ANTONIO DICKINSON MD MT: MARIO#[id number] Name: TRINITY AYALA Account: [id number] : 1985 Visit Date: 11/10/2007 Document: [id number] cc: Eil INMAN LY CHAIN PROCUREMENT MANAGER documented in this encounter Plan of Treatment Not on filedocumented as of this encounter Visit Diagnoses Not on filedocumented in this encounter
--- OUTSIDE RECORDS SUMMARY | 2022-08-17 09:21 | XMS_ITS | Encounter Summary ---
:1985 Author Organization [place] Address [address] [place] [address] Care Team Providers Name Role Phone Unavailable Primary Care Provider Unavailable Encounter Details Date Type Department Care Team Description 09/04/2017 Orders Only [facility], Ernestina Nonintrac table [facility] Laboratory MD Adriana generalized idiopathic [address] [facility] OF epilepsy with status [place], [place] NEUROLOGY epilepticus (H) (Primary [address] [address]) [phone] [place], [place] [address] Social History Tobacco Use Types Packs/Day Years Used Date Smoking Tobacco: Never Alcohol Use Standard Drinks/Week Comments Yes 0 (1 standard drink = 0.6 oz pure alcoho l) occ Sex Assigned at Date Recorded Not on file documented as of this encounter Plan of Treatment Not on filedocumented as of this encounter Results (ABNORMAL) Keppra (Levetiracetam) Level (09/05/2017 7:19 AM SPOT BILLING CLERK) athologist Signature Keppra 2 (L) 12 - 46 09/06/2017 [facility] (Levetiracetam) ug/mL 3:44 AM [facility] Comment: (Note) INTERPRETIVE INFORMATION: Keppra (Leveti racetam) Therapeutic Range: ??12-46 ug/mL ? Toxic: ??Not well Establ ished Pharmacokinetics of levetiracetam are af fected by renal function. Adverse effects may include so mnolence, weakness, headache and vomiting. Performed by [facility], [address] [place] [address] [phone] [email or web address], Francisco Rubio MD, Lab. Director Specimen Anatomical Collection Method Collection Time Receive d Time (Source) Location / / Volume Laterality Blood specimen 09/05/2017 7:19 AM 017 7:20 (specimen) SPOT BILLING CLERK AM SPOT BILLING CLERK Ernestina Shah MD LAB - BLOOD ORDERABLES Performing Organization Address City/[facility]/ZIP Code Phon e Number [facility] [employer] [address] [place] [address] [facility] [address] [place] [address], [facility] [phone] Lamotrigine Level (09/05/2017 7:19 AM SPOT BILLING CLERK) athologist Signature Lamotrigine 5.1 2.5 - 15.0 09/06/2017 [place] Level ug/mL 3:44 AM [facility] Comment: (Note) INTERPRETIVE INFORMATION: ??Lamotrigine Therapeutic Range: ??2.5-15.0 ug/mL ? Toxic: ??Not well establ ished Pharmacokinetics varies widely, particul leon with co-medications and/or compromised renal function. ??Adverse effects may include dizziness, somnolenc e, nausea and vomiting. Performed by [facility], [address] [facility] [place] [address] [email or web address], Francisco Rubio MD, Lab. Director Specimen Anatomical Collection Method Collection Time Receive d Time (Source) Location / / Volume Laterality Blood specimen 09/05/2017 7:19 AM 017 7:20 (specimen) SPOT BILLING CLERK AM SPOT BILLING CLERK Ernestina Shah MD LAB - BLOOD ORDERABLES Performing Organization Address City/State/ZIP Code Phon e Number [facility] [address] [place], [place] [address] [facility] [address] [place] [address], [facility] [phone] (ABNORMAL) Comprehensive metabolic panel (BMP + Alb, Alk Phos, ALT, AST, Total. Bili, TP) (09/05/2017 7:19 AM [facility]) athologist Signature Sodium 141 133 - 144 09/05/2017 [facility] mmol/L 7:44 AM [facility] Potassium 3.7 3.4 - 5.3 09/05/2017 [facility] mmol/L 7:44 AM [facility] Chloride 114 (H) 94 - 109 09/05/2017 [facility] mmol/L 7:44 AM [facility] Carbon Dioxide 20 20 - 32 09/05/2017 [facility] mmol/L 7:44 AM [facility] Anion Gap 7 3 - 14 09/05/2017 [facility] mmol/L 7:44 AM [facility] Glucose 93 70 - 99 09/05/2017 [facility] mg/dL 7:44 AM [facility] Urea Nitrogen 13 7 - 30 09/05/2017 [facility] mg/dL 7:44 AM [facility] Creatinine 0.98 0.52 - 09/05/2017 [facility] 1.04 mg/dL 7:44 AM [facility] GFR Estimate 66 >60 09/05/2017 [facility] mL/min/1.7 7:[address] Comment: Non GFR Calc GFR Estimate If 80 >60 mL/min/1.7m2 09/05/2017 7:44 A M [facility] Comment: GFR Calc Calcium 8.9 8.5 - 10.1 mg/dL 09/05/2017 7:44 AM [facility] Bilirubin Total 0.6 0.2 - 1.3 mg/dL 09/05/2017 7:[address] [facility] Albumin 4.0 3.4 - 5.0 g/dL 09/05/2017 7:[address] [facility] Protein Total 7.4 6.8 - 8.8 g/dL 09/05/2017 7:44 AM [facility] Alkaline Phosphatase 65 40 - 150 U/L 09/05/2017 7:[address] [facility] ALT 16 0 - 50 U/L 09/05/2017 7:44 AM [facility] AST 13 0 - 45 U/L 09/05/2017 7:44 AM [facility] Specimen Anatomical Collection Method Collection Time Receive d Time (Source) Location / / Volume Laterality Blood specimen 09/05/2017 7:19 AM 017 7:20 (specimen) SPOT BILLING CLERK AM SPOT BILLING CLERK Ernestina Shah MD LAB - BLOOD ORDERABLES Performing Organization Address City/State/ZIP Code Phon e Number [place] [address] [address] [place] [address] [facility] [address] [phone] documented in this encounter Visit Diagnoses Diagnosis 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
--- OUTSIDE RECORDS SUMMARY | 2022-08-17 09:21 | XMS_ITS | Encounter Summary ---
:1985 Author Organization [facility] [place] Address [address] [place] [address]. [place] [address] Care Team Providers Name Role Phone [facility] Primary Care Provider Reason for Visit Auth/Cert - Closed Specialty Diagnoses / Procedures Referred By Contact Refer red To Contact Surgery Diagnoses Chronic Tonsilitis Rh Periop Services Procedures TONSILLECTOMY [address] [place], [place] [address] Phone: Fax: Referral ID Status Reason Start Date Expiration Date Visits Requ ested Visits Authorized [id number] Closed 1 1 Encounter Details Date Type Department Care Team Description 02/18/2013 Anesthesia Event M [facility] Ronald Gonzáles MD [facility] ANESTH[facility]IA [facility] [address] [place], [place] [address] [facility] Jaylene Donaldson APRN QUALITY INTERN S [facility] [address] [place] [address] [address] [place] [address] Anesthesia Record Procedure Summary Procedure Name Responsible Anesthesia Start Anesthesia Stop Anesthesiologist Time Time Tonsillectomy Ronald Gonzáles MD 02/18/13 1253 02/18/13 1338 (Bilateral: Throat) Events Date Time Event Comment 02/18/2013 [...] 33 by Hand; Metacarpal vein Eduardo Lange ra RN (top of hand); Chlorhexidine; Injectable; Tolerated [...] benefits and alternatives discussed with: patient or compliance representative. History & Physical Review History and [...] Intra-op documented in this encounter Care Teams Secret Code Expert Relationship Specialty Start Date End Date [facility] PCP - General 02/04/13 06/15/13 documented as of this encounter
--- OUTSIDE RECORDS SUMMARY | 2022-08-17 09:21 | XMS_ITS | Encounter Summary ---
:1985 Author Organization [place] Address [address] [place] [address]. [place] [address] Care Team Providers Name Role Phone [facility] Primary Care Provider [phone] Reason for Visit Auth/Cert - Closed Specialty Diagnoses / Procedures Referred By Contact Refer red To Contact Surgery Diagnoses Chronic Tonsilitis Rh Periop Services Procedures TONSILLECTOMY [address] [place], [place] [address] Phone: Fax: Referral ID Status Reason Start Date Expiration Date Visits Requ ested Visits Authorized [id number] Closed 1 1 Encounter Details Date Type Department Care Team Description 02/18/2013 Hospital Encounter [facility] Tomasz Loya, Chronic tonsillitis Ridgejesus Post MD (Primary Dx) Anesthesia Care [facility] [address] [place], [place] [address] [facility] [address] [place] [address] [place], [place] [address] Social History Tobacco Use Types Packs/Day Years [...] ML AT 2:10 PM TONSILLECTOMY DISCHARGE INSTRUCTIONS [facility], Akbar Guzman M.D. Phill Kahn M.D. [...] It is best to stay in the [facility] area for the two week [...] have any problems or questions, please call [phone], 24 hours a day. GENERAL ANESTHESIA OR [...] Component Value Ref Test Analysis Performed At [facility] Range Method Time Signature Copath Report Patient Name: TRINITY AYALA MR#: [id number] Specimen #: [id number] Collected: 02/18/2013 Received: 02/18/2013 Reported: 02/19/2013 16:17 [...] serial sections, no gross lesions are identified. ??Die Fitter section is submitted in one cassette. B. ??The specimen, labeled left tonsil, consists of formal in-fixed morin to pink to hemorrhagic soft palatine tonsil measuring 2.5 cm x 1.5 cm x 1 cm. ??On serial sections, no gross lesions are identified. Die Fitter section is submitted in one cassette. ??MGP/s g MICROSCOPIC: A. and B. ??Microscopic examination is performed. SA/sg DT/02-19-13 TESTING LAB LOCATION: [address] ??[address] COLLECTION SITE: Client: [facility] Location: RHOR (R) Specimen Anatomical Collection Method Collection Time Receive d Time (Source) Location / / Volume Laterality 02/18/2013 1:15 PM 3 1:45 CDT PM CDT Tomasz Loya MD LAB - BEAKER AP Performing Organization Address City/State/ZIP Code Phon e Number [facility] HCG qualitative urine (02/18/2013 10:10 AM CDT) P athologist Signature HCG Qual Urine Negative [facility] Specimen Anatomical Collection Method Collection Time Receive d Time (Source) Location / / Volume Laterality Urine specimen URINE SPECIMEN / 02/18/2013 10:10 02/18 (specimen) Unknown AM CDT 10:23 AM CDT Allan Garrett MD LAB - URINE ORDERABLES Performing Organization Address City/State/ZIP Code Phon e Number M [facility] [address] [place], [place] [address] [facility] LAB documented in this encounter [...] Intra-procedure documented in this encounter Care Teams Manager Client Service Relationship Specialty Start Date End Date [facility] PCP - General 02/04/13 06/15/13 documented as of this encounter
--- OUTSIDE RECORDS SUMMARY | 2022-08-17 09:21 | XMS_ITS | Encounter Summary ---
:1985 Author Organization [place] Address [address] [place] [address]. [place] [address] Care Team Providers Name Role Phone [facility] Primary Care Provider [phone] Ernestina Shah MD Unavailable Reason for Visit Reason Onset Date Comments Call To Schedule Appointment 09/01/2018 Encounter Details Date Type Department Care Team Description 09/01/[address] [facility] Louise Johnson Call T o Schedule Maternal Medicine Appo intment [facility] [address] [place], [place] [address]E [place] [phone] Social History Tobacco Use Types Packs/Day Years Used Date Smoking Tobacco: Never Alcohol Use Standard Drinks/Week Comments Yes 0 (1 standard drink = 0.6 oz pure alcoho l) occ Sex Assigned at Date Recorded Not on file documented as of this encounter Miscellaneous Notes Telephone Encounter - Louise Johnson - 09/01/2018 11:42 AM CST [facility] received a referral for patient and [facility] wanted to see her for a FTS appointment. Patient is now past FTS dates and has not returned M calls. Orders for FTS removed. Will continue to try to schedule future appts. Louise Li Quality Compliance Consultant, [facility] ING ENGINEER documented in this encounter Plan of Treatment Not on filedocumented as of this encounter Visit Diagnoses Not on filedocumented in this encounter Care Teams Business Analytics Specialist Relationship Specialty Start Date End Date [facility] PCP - General 09/05/17 [address] [facility] [place] [address] Ernestina Shah MD MD Neurology 09/05/17 10/28/18 [facility] OF NEUROLOGY [facility] [address] [address] documented as of this encounter
--- OUTSIDE RECORDS SUMMARY | 2022-08-17 09:21 | XMS_ITS | Encounter Summary ---
:1985 Author Organization [place] Address [address] [place] [address]. [place] [address] Care Team Providers Name Role Phone [facility] Primary Care Provider [phone] Reason for Referral Diagnostic Imaging Ultrasound (Routine) - Pending Review Specialty Diagnoses / Procedures Referred By Contact Refer red To Contact Diagnoses related condition, antepartum Peterson Pearson Procedures [facility] [address] [place] [address] Referral ID Status Reason Start Date Expiration Date Visits V isits Requested Authorized [id number] Pending 10/24/2021 10/24/2022 1 1 Review POTATO ARRANGER Consultation (Routine: Next available opening) - Pending Review Specialty Diagnoses / Procedures Referred By Contact Refer red To Contact Diagnoses related condition, antepartum Peterson Pearson [facility] [address] [place] [address] Referral ID Status Reason Start Date Expiration Date Visits V isits Requested Authorized [id number] Pending 10/24/2021 10/24/2022 1 1 Review POTATO ARRANGER Encounter Details Date Type Department Care Team Description 10/24/2021 Transcribe Orders [facility] James Pearson misty related Maternal Peterson Becerra condition, Medicine [facility] antepartum ([facility] Dx) [address] [facility] [address] [place], [place] [address] Social History Tobacco Use Types Packs/Day Years Used Date Smoking Tobacco: Never Alcohol Use Standard Drinks/Week Comments Yes 0 (1 standard drink = 0.6 oz pure alcoho l) occ Sex Assigned at Date Recorded Not on file documented as of this encounter Plan of Treatment Scheduled Referrals Name Type Priority Associated Diagnoses Order [facility] Referral Routine: Next related Expe cted: Referral - available opening condition, 10/24/2021 antepartum (Approximate), Expires: 04/22/2022 documented as of this encounter Results [facility] US Comprehensive Single (10/26/2021 3:29 PM SEED POTATO ARRANGER) Anatomical Region Laterality Modality Ultrasound Specimen (Source) Anatomical Collection Method Collection Time Re ceived Time Location / / Volume Laterality 10/26/2021 1:55 PM SEED POTATO ARRANGER Impressions 10/26/2021 5:17 PM SEED POTATO ARRANGER IMPRESSION 1) Eduardo intrauterine at 2 1w [...] of growth restriction. Narrative 10/26/2021 5:17 PM SEED POTATO ARRANGER Comprehensive Pat. Name: TRINITY AYALA Study Chet e: 10/26/2021 1:55pm Pat. NO: [id number] Referring ??MD: SETH FRAGOSO Site: [facility] Stage Technician: Marya Moy RDMS : 1985 Age: 36 [...] lb 11 ? oz EFW by ?Hadlock ([id number]) Head / Face / Neck Biometry: Sheet Taker ? 4.8 ? mm CM ?5.4 ? [...] Heart / Thorax ?Situs. Ductal arch view. 4-tnedrc-fcsdlks view. Cardiac position. Cardiac size. Cardiac rhythm. [...] scheduled of induction of la bor through [facility]. [facility] would like to proceed with delivery [...] be different from the original. Comprehensive Pat. Name:Erlinda AYALA Date: 10/26/2021 1:55pm Pat. NO: [id number] MD:PETERSON MEDNIA Site:[facility]onographer:Marya Moy RD MS :1985Age:36 INDICATION Multiple anomalies [...] 0 lb 11 oz EFW by Hadlock ([id number]) Head / Face / Neck Biometry: Sheet Taker 4.8 mm CM 5.4 mm Nasal bone [...] Heart / Thorax Situs. Ductal arch view. 6-xjtesi-jntljpu view. Cardiac position. Cardiac size. Cardiac rhythm. [...] scheduled of induction of la bor through [facility]. [facility] would like to proceed with delivery [...] the finding of growth restriction. Peterson Medina [facility] US ORDERABLES documented in this encounter Visit Diagnoses Diagnosis related condition, antepartum - Primary related condition, antepartum documented in this encounter Care Teams Greenhouse Manager Relationship Specialty Start Date End Date [facility] PCP - General 09/05/17 [address] [place] [address] documented as of this encounter
--- OUTSIDE RECORDS SUMMARY | 2022-08-17 09:21 | XMS_ITS | Encounter Summary ---
:1985 Author Organization [place] Address [address] [place] [address]. [place] [address] Care Team Providers Name Role Phone [facility] Primary Care Provider [phone] Reason for Visit Reason Comments Consult FUELS ENGINEER (Emergency: 1-2 Days) - Pending Review Specialty Diagnoses / Procedures Referred By Contact Refer red To Contact animal keeper head Diagnoses Abnormal ultrasound Shirley Pearson [facility] [address] [facility] [place] [address] [facility] Flr,Devan [address] [place] [address] Phone: Fax: Referral ID Status Reason Start Date Expiration Date Visits V isits Requested Authorized [id number] Pending 10/25/2021 10/25/2022 1 1 Review Encounter Details Date Type Department Care Team Description 10/26/2021 Virtual Visit [facility] Milly Pearson [facility] [address] [place] [address] Known anomaly, Clinic Gia Umanzor MD [address] [place], [place] [address] antepartum, single or [address] unspecified fetus [place], [place] (Primary Dx) [address] Social History Tobacco Use Types Packs/Day Years Used Date Smoking Tobacco: Never Alcohol Use Standard Drinks/Week Comments Yes 0 (1 standard drink = 0.6 oz pure alcoho l) occ Sex Assigned at Date Recorded Not on file COVID-19 Exposure Response Date Recorded In the last month, have you been in contact with No / Unsure 10/26/2021 1:52 PM MIXING HOUSE OPERATOR someone who was confirmed or suspected [...] of her appointment to recommend level 2 MFM ultrasound. They could fit her in today so she went to the ultrasound in lieu of clinic appointmentat [facility]. I called her after her ultrasound with [facility] She and her are interested in induction [...] MD. Plan for induction of labor at [place] on 10/28 at 9am. Will get [...] and is interested in talking with a perinatal social worker tomorrow to help make arrangements ahead of time. She has questions about insurance coverage. I will have the hospital perinatal social worker reach out to her. I also gave her my mold shop supervisor's phone number who may be able to help with coding questions. Phone call duration: 29min Gia Martínez MD NG HOUSE OPERATOR documented in this encounter Plan of Treatment Scheduled Referrals Name Type Priority Associated Diagnoses Order S chedule Program Technician Referral Referral Emergency: 1-2 Days Abnormal Ord ered: 10/25/2021 ultrasound documented as of this encounter Visit Diagnoses Diagnosis Known anomaly, antepartum, single or unspecified fetus - Primary documented in this encounter Care Teams Disintegrator Relationship Specialty Start Date End Date [facility] PCP - General 09/05/17 [address] [place], [place] [phone] documented as of this encounter
--- OUTSIDE RECORDS SUMMARY | 2022-08-17 09:21 | XMS_ITS | Encounter Summary ---
:1985 Author Organization [address] [place] [address] Care Team Providers Name Role Phone [facility] Primary Care Provider [phone] Ernestina Shah MD Unavailable Encounter Details Date Type Department Care Team Description 07/23/2018 Medical Correspondence [facility] PROVIDER Health Info Mgmt Non-Provider SERVICE REQ UEST [address] [address] Social History Tobacco Use Types [...] on filedocumented in this encounter Care Teams Family Member Caretaker Relationship Specialty Start Date End Date [facility] Medical PCP - General 09/05/17 [address] [place] [address] Ernestina Shah MD MD Neurology 09/05/17 10/28/18 [facility] [address] [facility] [address] [place] [address] documented as of this encounter
--- OUTSIDE RECORDS SUMMARY | 2022-08-17 09:21 | XMS_ITS | Encounter Summary ---
:1985 Author Organization [place] Address [address] [place] [address]. [place] [address] Care Team Providers Name Role Phone Unavailable Primary Care Provider Unavailable Encounter Details Date Type Department Care Team Description 11/10/2007 Historic Results INTERFACED REPORT Tobi Kirkpatrick [address] [place] [address] Social History Tobacco Use Types Packs/Day Years Used Date Smoking Tobacco: Never Assessed Sex Assigned at Date Recorded Not on file documented as of this encounter Plan of Treatment Not on filedocumented as of this encounter Procedures Procedure Name Priority Date/Time Associated Comments Diagnosis LAMOTRIGINE LEVEL STAT 11/10/2007 2:42 PM Resu lts for this GENERAL SERVICE OFFICER procedure are i n the results section. BASIC METABOLIC PANEL STAT 11/10/2007 2:42 PM Results for this GENERAL SERVICE OFFICER procedure are i n the results section. HCG QUALITATIVE URINE STAT 11/10/2007 2:30 PM Results for this GENERAL SERVICE OFFICER procedure are i n the results section. documented in this encounter Results Basic metabolic panel (11/10/2007 2:42 PM GENERAL SERVICE OFFICER) P athologist Signature Sodium 139 133 - [...] Volume Laterality 11/10/2007 2:42 PM 8 2:23 GENERAL SERVICE OFFICER PM GENERAL SERVICE OFFICER Antonio Kirkpatrick LAB - BLOOD ORDERABLES Performing Organization Address [facility] Phon e Number MISYS Lamotrigine level (11/10/2007 2:42 PM GENERAL SERVICE OFFICER) athologist Signature Lamotrigine 2.8 MISYS Level Comment: Reference range: 2.0 ??to ??20.0 Unit: ug/ml (Note) CURRENT CLINICAL INFORMATION SUGGESTS TH E RECOMMENDED CONCENTRATIONS FOR LAMOTRIGINE DURING CH RONIC THERAPY ARE 2 - 20 ug/ml. LAMOTRIGINE ANALYSIS PERFORMED BY HIGH P ERFORMANCE LIQUID CHROMATOGRAPHY (HPLC). Analysis performed by [employer] [place] [address] Specimen Anatomical Collection Method Collection Time Receive d Time (Source) Location / / Volume Laterality 11/10/2007 2:42 PM 8 2:23 GENERAL SERVICE OFFICER PM GENERAL SERVICE OFFICER Antonio Kirkpatrick LAB - BLOOD ORDERABLES Performing Organization Address [facility] Phon e Number MISYS HCG qualitative urine (11/10/2007 2:30 PM GENERAL SERVICE OFFICER) athologist Signature HCG Qual Urine Negative NEG MISYS Specimen Anatomical Collection Method Collection Time Receive d Time (Source) Location / / Volume Laterality 11/10/2007 2:30 PM 8 2:23 GENERAL SERVICE OFFICER PM GENERAL SERVICE OFFICER Antonio Kirkpatrick LAB - URINE ORDERABLES Performing Organization Address [facility] Phon e Number MISYS documented in this encounter Visit Diagnoses Not on filedocumented in this encounter
--- OUTSIDE RECORDS SUMMARY | 2022-08-17 09:21 | XMS_ITS | Encounter Summary ---
:1985 Author Organization [place] Address [address] [place] [address] Care Team Providers Name Role Phone Unavailable Primary Care Provider Unavailable Encounter Details Date Type Department Care Team Description 07/24/2007 Historic Results INTERFACED REPORT Joe Barton MD [facility] [address] [place], [place] [address] (Wo rk) Social History Tobacco Use Types [...] differential and platelet (07/24/2007 9:39 PM CDT) [facility] Method Time Signature MCV 88 [id number] [...] LAB - BLOOD ORDERABLES Performing Organization Address City/[facility]/ZIP Code Phon e Number MISYS Levetiracetam level (07/24/2007 9:39 PM CDT) Analysis Performed At [facility] Time Signature Levetiracetam 15.2 MISYS Level Comment: Unit: ug/ml (Note) EXPECTED [employer]ADY STATE TROUGH CONCENTRATI ONS IN PATIENTS RECEIVING RECOMMENDED DAILY DOS AGES: 5 - 45 ug/ml. TOXIC RANGE HAS NOT BEEN ESTABLISHED. Analysis performed by [employer] [address] [place] [address] Specimen Anatomical Collection Method Collection Time Receive d Time (Source) Location / / Volume Laterality 07/24/2007 9:39 PM 7 CDT 11:46 PM CDT Markos Barton MD LAB - BLOOD ORDERABLES Performing Organization Address [facility] Phon e Number MISYS documented in this encounter Visit Diagnoses Not on filedocumented in this encounter
--- OUTSIDE RECORDS SUMMARY | 2022-08-17 09:21 | XMS_ITS | Encounter Summary ---
:1985 Author Organization [place] Address [address] [place] [address] Care Team Providers Name Role Phone [facility] Care Provider Reason for Referral Diagnostic Imaging Ultrasound (Routine) - Pending Review Specialty Diagnoses / Procedures Referred By Contact Refer red To Contact Diagnoses related condition, antepartum Peterson Pearson Procedures [facility] [address] [place] [address] Referral ID Status Reason Start Date Expiration Date Visits V isits Requested Authorized [id number] Pending 10/24/2021 10/24/2022 1 1 Review RUCTOR BRIDGE Reason for Visit Diagnostic Imaging Ultrasound (Routine) - Pending Review Specialty Diagnoses / Procedures Referred By Contact Refer red To Contact Diagnoses related condition, antepartum Peterson Pearson Procedures [facility] [address] [place] [address] Referral ID Status Reason Start Date Expiration Date Visits V isits Requested Authorized [id number] Pending 10/24/2021 10/24/2022 1 1 Review Encounter Details Date Type Department Care Team Description 10/26/2021 Hospital Encounter [facility] Abbi Pearson garfield related Maternal Peterson Becerra condition, Medicine [facility] antepartum [facility] [address] [place] [address] [phone] Social History Tobacco Use Types Packs/Day Years Used Date Smoking Tobacco: Never Alcohol Use Standard Drinks/Week Comments Yes 0 (1 standard drink = 0.6 oz pure alcoho l) occ Sex Assigned at Date Recorded Not on file COVID-19 Exposure Response Date Recorded In the last month, have you been in contact with No / Unsure 10/26/2021 1:52 PM INSTRUCTOR BRIDGE someone who was confirmed or suspected to [...] Procedure Name Priority Date/Time Associated Comments Diagnosis [facility] US COMPREHENSIVE Routine 10/26/2021 3:29 PM rela estelita Results for this SINGLE INSTRUCTOR BRIDGE condition, procedure are i n antepartum the results section. documented in this encounter Results [facility] US Comprehensive Single (10/26/2021 3:29 PM INSTRUCTOR BRIDGE) Anatomical Region Laterality Modality Ultrasound Specimen (Source) Anatomical Collection Method Collection Time Re ceived Time Location / / Volume Laterality 10/26/2021 1:55 PM INSTRUCTOR BRIDGE Impressions 10/26/2021 5:17 PM INSTRUCTOR BRIDGE IMPRESSION 1) Eduardo intrauterine at 2 1w [...] of growth restriction. Narrative 10/26/2021 5:17 PM INSTRUCTOR BRIDGE Comprehensive Pat. Name: SAI AYALAMARY Dimas Chet e: 10/26/2021 1:55pm Pat. NO: [id number] Referring ??: SETH FRAGOSO Site: [facility] Supervisor Electronics Assembly: Marya Moy RDMS : 1985 Age: 36 [...] lb 11 ? oz EFW by ?Hadlock ([id number]) Head / Face / Neck Biometry: Business Administrator ? 4.8 ? mm CM ?5.4 ? [...] Heart / Thorax ?Situs. Ductal arch view. 2-flbygb-tijzwce view. Cardiac position. Cardiac size. Cardiac rhythm. [...] scheduled of induction of la bor through [facility]. Trinity would like to proceed with delivery [...] Name:Zena AYALAshanthidavid Date: 10/26/2021 1:55pm Pat. NO: [id number] MD:[facility]ATRI[facility]Marya Moy RD MS :1985Age:36 INDICATION Multiple [...] 0 lb 11 oz EFW by Hadlock ([id number]) Head / Face / Neck Biometry: Business Administrator 4.8 mm CM 5.4 mm Nasal bone 6.1 mm Extremities / Bony Struc Biometry: Radius 6.3 mm <1% Garcia Ulna 22.0 mm <1% Garcia Rt Humerus 29.6 mm 19w 5d Schuyler Rt Radius 6.3 mm <1% Garcia Rt Ulna 21.5 mm <1% Garcia Lt Humerus 28.5 mm 19w 2d Shcuyler Lt Radius 0.0 mm <1% Garcia Lt [...] Heart / Thorax Situs. Ductal arch view. 5-bvqhio-vmaqjiz view. Cardiac position. Cardiac size. Cardiac rhythm. [...] RECOMMENDATION We discussed the findings on today's [facility] with the patient. Trinity was referred to our office for an comprehensive ultrasound to confirm the findings on previous outside ultrasound. The couple were previously counseled regarding the multiple anomalies a nd have decided to proceed with termination of . She is scheduled to see Dr. Martínez later today to further discuss the process and scheduled of induction of la bor through [facility]. Trinity would like to proceed with delivery [...] to the finding of growth restriction. Peterson ROWE [facility] US ORDERABLES documented in this encounter Visit Diagnoses Diagnosis related condition, antepartum documented in this encounter Care Teams Flight Mechanic Relationship Specialty Start Date End Date [facility] PCP - General 09/05/17 [address] [place] [address] documented as of this encounter
--- OUTSIDE RECORDS SUMMARY | 2022-08-17 09:21 | XMS_ITS | Encounter Summary ---
:1985 Author Organization [place] Address [address] [place] [address]. [place] [address] Care Team Providers Name Role Phone [facility] Primary Care Provider [phone] Reason for Referral Consultation (Routine: Next available opening) - Pending Review Specialty Diagnoses / Procedures Referred By Contact Refer red To Contact Diagnoses related condition, antepartum Shirley Pearson [facility] [address] [place] [address] Referral ID Status Reason Start Date Expiration Date Visits V isits Requested Authorized [id number] Pending 10/24/2021 10/24/2022 1 1 Review STRY CONTRACTOR Encounter Details Date Type Department Care Team Description 10/24/2021 Transcribe Orders [facility] lAexy Barajas, Pregn misty related Maternal Shirley Becerra condition, Medicine Center [facility] antepartum (Primary [facility] Dx) [address] [facility] [address] [place] [address] [phone] Social History Tobacco Use Types Packs/Day Years [...] Primary documented in this encounter Care Teams Cardiac Catheterization Technologist Relationship Specialty Start Date End Date [facility] PCP - General 09/05/17 [address] [place] [address] documented as of this encounter
--- OUTSIDE RECORDS SUMMARY | 2022-08-17 09:21 | XMS_ITS | Encounter Summary ---
:1985 Author Organization [place] Address [address] [place] [address]. 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 Toxic: ??Not well Establ ished Pharmacokinetics of levetiracetam are af fected by renal function. Adverse effects may include so mnolence, weakness, headache and vomiting. Performed by [employer], [address] [place] [address],[place] [address] [employer], Francisco Rubio MD, Lab. Director Specimen Anatomical Collection Method Collection Time Receive d Time (Source) Location / / Volume Laterality Blood specimen 01/16/2018 7:25 AM 018 7:31 (specimen) CDT AM CDT Eli Barnhart MD LAB - BLOOD ORDERABLES Performing Organization Address City/[facility]/ZIP Code Phon e Number M [facility] [address] [place], [place] [address] [facility] [address] [place], [place] [address], [facility] [phone] Lamotrigine Level (01/16/2018 7:25 AM CDT) athologist Signature Lamotrigine 4.8 2.5 - 15.0 01/17/2018 [place] Level ug/mL 1:17 AM CDT [facility] Comment: (Note) INTERPRETIVE INFORMATION: ??Lamotrigine Therapeutic Range: ??2.5-15.0 ug/mL ? Toxic: ??Not well establ ished Pharmacokinetics varies widely, particul leon with co-medications and/or compromised renal function. ??Adverse effects may include dizziness, somnolenc e, nausea and vomiting. Performed by [employer], [address] [place] [id number] [employer], Francisco Rubio MD, Lab. Director Specimen Anatomical Collection Method Collection Time Receive d Time (Source) Location / / Volume Laterality Blood specimen 01/16/2018 7:25 AM 018 7:31 (specimen) CDT AM CDT Eli Barnhart MD LAB - BLOOD ORDERABLES Performing Organization Address City/State/ZIP Code Phon e Number M [facility] [address] [place], [place] [address] [facility] [address] [place], [place] [address], [facility] [phone] documented in this encounter Visit Diagnoses Diagnosis Nonintractable generalized idiopathic ep ilepsy with status epilepticus (H) - Primary Post-traumatic headache Post-traumatic headache, unspecified Injury, head, sequela Benign essential tremor Essential and other specified forms of t remor documented in this encounter Care Teams Human Resources Support Specialist Relationship Specialty Start Date End Date [facility] PCP - General 09/05/17 [address] [place] [address] Ernestina Shah MD MD Neurology 09/05/17 10/28/18 [facility] NEUROLOGY [address] [place] [id number] documented as of this encounter
--- OUTSIDE RECORDS SUMMARY | 2022-08-17 09:21 | XMS_ITS | Encounter Summary ---
:1985 Author Organization [place] Address [address] [place] [address]. [place] [address] Care Team Providers Name Role Phone Unavailable Primary Care Provider Unavailable Encounter Details Date Type Department Care Team Description 10/12/2007 Emergency room Melisa Barton MD EMERGENCY PHYSIC VIGN[facility] INMAN [address] [facility] [address] [place], [place] [address] (Wo rk) Social History Tobacco Use Types Packs/Day Years Used Date Smoking Tobacco: Never Assessed Sex Assigned at Date Recorded Not on file documented as of this encounter Progress Notes Melisa Barton MD - 11/13/2007 2:00 PM CAUSTIC ROOM ATTENDANT FINAL CHIEF COMPLAINT: I got my period [...] 85, respirations 32, temperature 99 and oxygen [id number]% on room air. GENERAL: This is a [...] BARTON MD MT: [id number] Name: TRINITY AYALA MRN: [id number] Account: [id number] : 1985 Visit Date: 10/12/2007 Document: [id number] TIC ROOM ATTENDANT documented in this encounter Plan of Treatment Not on filedocumented as of this encounter Visit Diagnoses Not on filedocumented in this encounter
--- OUTSIDE RECORDS SUMMARY | 2022-08-17 09:21 | XMS_ITS | Encounter Summary ---
:1985 Author Organization [place] Address [address] [place] [address]. [place] [address] Care Team Providers Name Role Phone [facility] Primary Care Provider [phone] Reason for Referral CHANGE MANAGEMENT (Emergency: 1-2 Days) - Pending Review Specialty Diagnoses / Procedures Referred By Contact Refer red To Contact driver material handler Diagnoses Abnormal ultrasound Shirley Pearson [facility] [address] [facility] [place] [address] [facility],Devan [address] [facility] [address] Phone: Fax: Referral ID Status Reason Start Date Expiration Date Visits V isits Requested Authorized [id number] Pending 10/25/2021 10/25/2022 1 1 Review E OPERATOR SHEET METAL Encounter Details Date Type Department Care Team [...] Type Priority Associated Diagnoses Order S chedule Bag Checker Referral Referral Emergency: 1-2 Days Abnormal Ord ered: 10/25/2021 ultrasound documented as of this encounter Visit Diagnoses Diagnosis Abnormal ultrasound - Primary Abnormal findings on screening documented in this encounter Care Teams Weather Observer Relationship Specialty Start Date End Date [facility] PCP - General 09/05/17 [address] [place] [address] documented as of this encounter
--- OUTSIDE RECORDS SUMMARY | 2022-08-17 09:21 | XMS_ITS | Encounter Summary ---
:1985 Author Organization [place] Address [address] [place] [address]. [place] [address] Care Team Providers Name Role Phone [facility] Primary Care Provider [phone] Ernestina Shah MD Unavailable Reason for Referral - Closed Specialty Diagnoses / Procedures Referred By Contact Refer red To Contact Diagnoses Seizure disorder in , antepartum, first trimester (H) Polypharmacy Maternal Med [address] [place], [place] [address] Referral ID Status Reason Start Date Expiration Date Visits Requ ested Visits Authorized [id number] Closed 07/30/2018 07/30/2019 1 1 Encounter Details Date Type Department Care Team Description 07/30/2018 Orders Only [facility], Seizure disorder in , antepartum, first trimester (H) (Primary Dx); Maternal Gia Hope RN Polypharmacy Medicine Center [place] [address] [place], [place] [address] Social History Tobacco Use Types Packs/Day Years Used Date Smoking Tobacco: Never Alcohol Use Standard Drinks/Week Comments Yes 0 (1 standard drink = 0.6 oz pure alcoho l) occ Sex Assigned at Date Recorded Not on file documented as of this encounter Plan of Treatment Scheduled Referrals Name Type Priority Associated Diagnoses Order S chedule [facility] Office Visit Referral Routine Seizure disorder in Week ly for 1 Occurrences , antepartum, start ing 07/30/2018 until first trimester (H) 07/30/2019 Polypharmacy documented as of this encounter Visit Diagnoses Diagnosis Seizure disorder in , antepartu m, first trimester (H) - Primary Polypharmacy Issue of repeat prescriptions documented in this encounter Care Teams Transformation Manager Relationship Specialty Start Date End Date [facility] PCP - General 09/05/17 [address] [address] [place], [place] [phone] Ernestina Shah MD MD Neurology 09/05/17 10/28/18 [facility] OF NEUROLOGY [facility] [address] [address] documented as of this encounter
--- OUTSIDE RECORDS SUMMARY | 2022-08-17 09:22 | XMS_ITS | Encounter Summary ---
:1985 Author Organization [place] Address [address] [place] [address]. [place] [address] Care Team Providers Name Role Phone Unavailable Primary Care Provider Unavailable Encounter Details Date Type Department Care Team Description 10/12/2006 Results Only [facility] Wander Arguello MD Hospital Results [address] [place] [address] Social History Tobacco Use Types Packs/Day Years Used Date Smoking Tobacco: Never Assessed Sex Assigned at Date Recorded Not on file documented as of this encounter Plan of Treatment Not on filedocumented as of this encounter Procedures Procedure Name Priority Date/Time Associated Diagnosis [facility] CT HEAD WO Routine 10/12/2006 8:56 AM Results for this CONTRAST ORTHOPEDIC SHOE MAKER procedure are i n the results section. documented in this encounter Results CT SCAN HEAD/BRAIN (10/12/2006 8:56 AM ORTHOPEDIC SHOE MAKER) Anatomical Region Laterality Modality Other Specimen (Source) Anatomical Collection Method Collection Time Re ceived Time Location / / Volume Laterality 10/12/2006 8:56 AM ORTHOPEDIC SHOE MAKER Impressions 10/12/2006 9:04 AM ORTHOPEDIC SHOE MAKER EXAM: ?? CT HEAD W/O CONTRAST* CLINICAL INFORMATION: ?weak, ??Synco pe, ? FINDINGS: 1. ??Brain parenchyma and ventricles are normal. ? 2. ??Visualized sinuses are clear. ? IMPRESSION: ??Negative. Wander Arguello MD SPECIAL IMAGING STUDIES documented in this encounter Visit Diagnoses Not on filedocumented in this encounter
--- OUTSIDE RECORDS SUMMARY | 2022-08-17 09:22 | XMS_ITS | Encounter Summary ---
:1985 Author Organization [place] Address [address] [place] [address]. [place] [address] Care Team Providers Name Role Phone Unavailable Primary Care Provider Unavailable Encounter Details Date Type Department Care Team Description 07/29/2005 Emergency room Adrienne Cantor MD [facility] [address] [facility] [address] [place], [place] [address] (Wo rk) Social History Tobacco Use Types Packs/Day Years Used Date Smoking Tobacco: Never Assessed Sex Assigned at Date Recorded Not on file documented as of this encounter Progress Notes Adrienne Cantor - 07/29/2005 11:59 PM CDT PRELIMINARY CHIEF [...] abrasion to outer ear canal/resolving pimple. ADRIENNE CANTOR MD MT: HECTOR Name: TRINITY AYALA Account: [id number] : 1985 Visit Date: 07/29/2005 Document: [id number] documented in this encounter Plan of Treatment Not on filedocumented as of this encounter Visit Diagnoses Not on filedocumented in this encounter
--- OUTSIDE RECORDS SUMMARY | 2022-08-17 09:22 | XMS_ITS | Encounter Summary ---
:1985 Author Organization [place] Address [address] [place] [address] Care Team Providers Name Role Phone Unavailable Primary Care Provider Unavailable Encounter Details Date Type Department Care Team Description 09/25/2004 Results Only [facility] Results Saad Dominique [place] [address] Social History Tobacco Use Types Packs/Day Years Used Date Smoking Tobacco: Never Assessed Sex Assigned at Date Recorded Not on file documented as of this encounter Plan of Treatment Not on filedocumented as of this encounter Procedures Procedure Name Priority Date/Time Associated Diagnosis Comme nts HC CT ABDOMEN W/O Routine 09/25/2004 5:23 AM Resu lts for this CONTRAST AIRCRAFT POWERTRAIN REPAIRER procedure are i n the results section. documented in this encounter Results CT SCAN ABDOMEN (09/25/2004 5:23 AM AIRCRAFT POWERTRAIN REPAIRER) Anatomical Region Laterality Modality Other Specimen (Source) Anatomical Collection Method Collection Time Re ceived Time Location / / Volume Laterality 09/25/2004 5:23 AM AIRCRAFT POWERTRAIN REPAIRER Impressions 10/06/2004 2:45 AM AIRCRAFT POWERTRAIN REPAIRER CT ABDOMEN & PELVIS WITHOUT CONTRAST - [...]
--- OUTSIDE RECORDS SUMMARY | 2022-08-17 09:22 | XMS_ITS | Encounter Summary ---
:1985 Author Organization [facility] Address [address] [place] [address]. [place] [address] Care Team Providers Name Role Phone Unavailable Primary Care Provider Unavailable Encounter Details Date Type Department Care Team Description 11/08/2006 Emergency room Spike Quispe MD EMERGENCY PHYSIC [facility] [address] [place], [place] [id number] (Wo rk) Social History Tobacco Use Types Packs/Day Years Used Date Smoking Tobacco: Never Assessed Sex Assigned at Date Recorded Not on file documented as of this encounter Progress Notes Spike Quispe - 11/11/2006 2:21 AM BARBER STYLIST FINAL CHIEF COMPLAINT: Possible seizure. HISTORY OF [...] was able get the MRI report from [facility] that was done earlier today. This showed [...] MARIO#[id number] Name: TRINITY AYALA MRN: [id number] Account: [id number] : 1985 Visit Date: 11/08/2006 Document: [id number] ER STYLIST documented in this encounter Plan of Treatment Not on filedocumented as of this encounter Visit Diagnoses Not on filedocumented in this encounter
--- OUTSIDE RECORDS SUMMARY | 2022-08-17 09:22 | XMS_ITS | Encounter Summary ---
:1985 Author Organization [place] [facility] Address [address] [place] [address] Care Team Providers Name Role Phone Unavailable Primary Care Provider Unavailable Encounter Details Date Type Department Care Team Description 03/07/2007 Historic Results INTERFACED REPORT Shayne [place] [address] [place] [address] (Wo rk) Social History Tobacco [...] UA with microscopic (03/07/2007 3:09 AM CDT) [facility] Method Time Signature Source Midstream MISYS Urine Color Urine Yellow MISYS Appearance Urine Clear MISYS Glucose Urine Negative NEG mg/dL MISYS Bilirubin Urine Negative NEG MISYS Ketones Urine Negative NEG mg/dL MISYS Specific [place] 1.024 1.003 - MISYS Urine 1.035 Blood [...] LAB - URINE ORDERABLES Performing Organization Address [facility] Phon e Number MISYS HCG qualitative urine (03/07/2007 3:09 AM CDT) P athologist Signature HCG Qual Urine Negative NEG MISYS Specimen Anatomical Collection Method Collection Time Receive d Time (Source) Location / / Volume Laterality 03/07/2007 3:09 AM 7 2:17 CDT AM CDT Walt Kidd LAB - URINE ORDERABLES Performing Organization Address [facility] Phon e Number MISYS Levetiracetam level (03/07/2007 2:28 AM CDT) Analysis Performed At Patho logist Time Signature Levetiracetam 5.6 MISYS Level Comment: Unit: ug/ml (Note) EXPECTED STEADY STATE TROUGH CONCENTRATI ONS IN PATIENTS RECEIVING RECOMMENDED DAILY DOS AGES: 5 - 45 ug/ml. TOXIC RANGE HAS NOT BEEN ESTABLISHED. Analysis performed by [employer] [place] [address] Specimen Anatomical Collection Method Collection Time Receive d Time (Source) Location / / Volume Laterality 03/07/2007 2:28 AM 7 2:17 CDT AM CDT Walt Kidd LAB - BLOOD ORDERABLES Performing Organization Address [facility]/ZIP Code Phon e Number MISYS (ABNORMAL) Basic [...] LAB - BLOOD ORDERABLES Performing Organization Address City/State/[facility] Code Phon e Number MISYS Hemogram and [...]
--- OUTSIDE RECORDS SUMMARY | 2022-08-17 09:22 | XMS_ITS | Encounter Summary ---
:1985 Author Organization [place] Address [address] [place] [address]. [place] [address] Care Team Providers Name Role Phone Unavailable Primary Care Provider Unavailable Encounter Details Date Type Department Care Team Description 11/08/2006 Historic Results INTERFACED REPORT Salome Cornejo cas, MD EMERGENCY PHYSIC [facility] [address] [place], [place] [address] (Wo rk) Social History Tobacco Use Types Packs/Day Years Used Date Smoking Tobacco: Never Assessed Sex Assigned at Date Recorded Not on file documented as of this encounter Plan of Treatment Not on filedocumented as of this encounter Procedures Procedure Name Priority Date/Time Associated Comments Diagnosis HEMOGRAM DIFFERENTIAL STAT 11/08/2006 11:36 Re sults for this AND PLATELET PM EDITORIAL CARTOONIST procedure are i n the results section. LEVETIRACETAM LEVEL STAT 11/08/2006 11:36 Resu lts for this PM EDITORIAL CARTOONIST procedure are i n the results section. BASIC METABOLIC PANEL STAT 11/08/2006 11:36 Re sults for this PM EDITORIAL CARTOONIST procedure are i n the results section. ROUTINE UA WITH STAT 11/08/2006 11:29 Results for this MICROSCOPIC PM EDITORIAL CARTOONIST procedure are i n the results section. documented in this encounter Results Hemogram differential and platelet (11/08/2006 11:36 PM EDITORIAL CARTOONIST) [facility] Method Time Signature MCV 88 78 [...] / Volume Laterality 11/08/2006 11:36 11/08/2006 PM EDITORIAL CARTOONIST 11:16 PM EDITORIAL CARTOONIST Palomo Cornejo MD LAB - BLOOD ORDERABLES Performing Organization Address City/State/ZIP Code Phon e Number MISYS (ABNORMAL) Basic metabolic panel (11/08/2006 11:36 PM EDITORIAL CARTOONIST) athologist Signature Sodium 137 133 - 144 [...] / Volume Laterality 11/08/2006 11:36 11/08/2006 PM EDITORIAL CARTOONIST 11:16 PM EDITORIAL CARTOONIST Palomo Cornejo MD LAB - BLOOD ORDERABLES Performing Organization Address City/[facility]/ZIP Code Phon e Number MISYS Levetiracetam level (11/08/2006 11:36 PM EDITORIAL CARTOONIST) [facility] Signature Levetiracetam <2.0 MISYS Level Comment: Unit: ug/ml (Note) EXPECTED [employer]ADY STATE TROUGH CONCENTRATI ONS IN PATIENTS RECEIVING RECOMMENDED DAILY DOS AGES: 5 - 45 ug/ml. TOXIC RANGE HAS NOT BEEN ESTABLISHED. Analysis performed by [employer] [place] [address] Specimen Anatomical Collection Method Collection Time Receive d Time (Source) Location / / Volume Laterality 11/08/2006 11:36 11/08/2006 PM EDITORIAL CARTOONIST 11:16 PM EDITORIAL CARTOONIST Palomo Cornejo MD LAB - BLOOD ORDERABLES Performing Organization Address City/[facility] Code Phon e Number MISYS (ABNORMAL) Routine UA with microscopic (11/08/2006 11:29 PM EDITORIAL CARTOONIST) [facility] Method Time Signature Source Midstream MISYS Urine Color Urine Yellow MISYS Appearance Urine Clear MISYS Glucose Urine Negative NEG mg/dL MISYS Bilirubin Urine Negative NEG MISYS Ketones Urine Negative NEG mg/dL MISYS Specific [place] 1.019 1.003 - MISYS Urine 1.035 Blood [...] / Volume Laterality 11/08/2006 11:29 11/08/2006 PM EDITORIAL CARTOONIST 11:16 PM EDITORIAL CARTOONIST Palomo Cornejo MD LAB - URINE ORDERABLES Performing Organization Address City/State/ZIP Code Phon e Number MISYS documented in this encounter Visit Diagnoses Not on filedocumented in this encounter
--- OUTSIDE RECORDS SUMMARY | 2022-08-17 09:22 | XMS_ITS | Encounter Summary ---
:1985 Author Organization [facility] Address [address] [place] [address]. [place] [address] Care Team Providers Name Role Phone Unavailable Primary Care Provider Unavailable Encounter Details Date Type Department Care Team Description 04/12/2005 Results Only [facility] Results EMERGENCY PHYSI CELIO INMAN [address] [place] [address] (Wo rk) Social History [...] FOOT 3+ VW (04/12/2005 9:53 PM CDT) Anatomical Region Laterality Modality Other Specimen (Source) Anatomical Collection Method Collection Time Re ceived Time Location / / Volume Laterality 04/12/2005 9:53 PM CDT Impressions 04/15/2005 9:50 AM CDT THREE VIEWS LEFT FOOT ?? HISTORY: ??Trauma. ? FINDINGS: ??Negative. Darren Sargent GENERAL IMAGING documented in this encounter Visit Diagnoses Not on filedocumented in this encounter
--- OUTSIDE RECORDS SUMMARY | 2022-08-17 09:22 | XMS_ITS | Encounter Summary ---
:1985 Author Organization [facility] Address [address] [place] [address]. [place] [address] Care Team Providers Name Role Phone Unavailable Primary Care Provider Unavailable Encounter Details Date Type Department Care Team Description 03/07/2007 Emergency room Jessika Kidd EMERGENCY PHYSIC [facility] [address] [facility] [place], [place] [id number] (Wo rk) Social History Tobacco Use Types Packs/Day Years Used Date Smoking Tobacco: Never Assessed Sex Assigned at Date Recorded Not on file documented as of this encounter Progress Notes Interface, Armature Connector - 05/02/2007 3:08 PM CDT FINAL CHIEF [...] appear grossly intact. No focal deficits. SKIN: [place], warm and dry. EMERGENCY DEPARTMENT COURSE: The [...] KIDD MD MT: [id number] Name: TRINITY AYALA Account: [id number] : 1985 Visit Date: 03/07/2007 Document: [id number] documented in this encounter Plan of Treatment Not on filedocumented as of this encounter Visit Diagnoses Not on filedocumented in this encounter
--- OUTSIDE RECORDS SUMMARY | 2022-08-17 09:22 | XMS_ITS | Encounter Summary ---
:1985 Author Organization [facility] Address [address] [place] [address]. 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 HISTORY [...] should be reviewed with the Sherita Gonzalez sponge maker by Monday, September 27, 2004. The patient is to contact Dr. Gonzáles sooner if she redevelops abdominal pain, with or without fever or vomiting. 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 [id number] ARMANDO DOMINIQUE MD MT: Document: [id number] [place], [place] Name: MR#: TRINITY RAMIREZ -[birth year] EMERGENCY ROOM ENCOUNTER Page 3 of 2 LCN: ROSE DSC: 09/25/2004 [place], [place] Name: MR#: TRINITY RAMIREZ [id number] : Admit Date: Account #: 1985 09/25/2004 [id number] Doctor: ARMANDO DOMINIQUE MD EMERGENCY ROOM ENCOUNTER Page 1 of 2 documented in this encounter Plan of Treatment Not on filedocumented as of this encounter Visit Diagnoses Not on filedocumented in this encounter
--- OUTSIDE RECORDS SUMMARY | 2022-08-17 09:22 | XMS_ITS | Encounter Summary ---
:1985 Author Organization [facility] Address [address] [place] [address] Care Team Providers Name Role Phone Unavailable Primary Care Provider Unavailable Encounter Details Date Type Department Care Team Description 10/12/2006 Historic Results INTERFACED REPORT Wander Arguello MD [address] [place] [address] Social History Tobacco Use Types Packs/Day Years Used Date Smoking Tobacco: Never Assessed Sex Assigned at Date Recorded Not on file documented as of this encounter Plan of Treatment Not on filedocumented as of this encounter Procedures Procedure Name Priority Date/Time Associated Diagnosis Comme nts EKG 12 LEAD Routine 10/12/2006 8:37 AM Results f or this REWRITE EDITOR procedure are i n the results section . documented in this encounter Results EKG 12 LEAD (10/12/2006 8:37 AM REWRITE EDITOR) Component Value Ref Range Test Analysis Performed Pathologis t Method Time At Signature Ventricular Rate 83 BPM RADIOLOGY RESULTS Atrial Rate 83 BPM RADIOLOGY RESULTS UT Interval 158 ms RADIOLOGY RESULTS QRS Duration 82 ms RADIOLOGY RESULTS QT 340 ms RADIOLOGY RESULTS QTc 399 ms RADIOLOGY RESULTS P Shelley 54 degrees RADIOLOGY RESULTS R AXIS 48 degrees RADIOLOGY RESULTS T Shelley 20 degrees RADIOLOGY RESULTS Interpretation Poor data [...] Volume Laterality 10/12/2006 8:37 AM 7 8:34 REWRITE EDITOR AM REWRITE EDITOR Wander Arguello MD ECG ORDERABLES Performing Organization Address City/State/ZIP Code Phon e Number RADIOLOGY RESULTS documented in this encounter Visit Diagnoses Not on filedocumented in this encounter
--- OUTSIDE RECORDS SUMMARY | 2022-08-17 09:22 | XMS_ITS | Encounter Summary ---
:1985 Author Organization [facility] Address [address] [place] [address]. [place] [address] Care Team Providers Name Role Phone Unavailable Primary Care Provider Unavailable Encounter Details Date Type Department Care Team Description 07/24/2007 Results Only [facility] Markos Barton, Hospital Results MD EMERGENCY PHYSIC VIGN[facility] PA [address] [facility] [address] [place], [place] [address] (Wo rk) Social History Tobacco Use Types Packs/Day Years Used Date Smoking Tobacco: Never Assessed Sex Assigned at Date Recorded Not on file documented as of this encounter Plan of Treatment Not on filedocumented as of this encounter Procedures Procedure Name Priority Date/Time Associated Diagnosis Comme [facility] US ABDOMEN Routine 07/24/2007 10:49 PM Results for this COMPLETE CDT procedure are i n the results section. documented in this encounter Results SONO ABDOMEN COMPLETE (07/24/2007 10:49 PM CDT) Anatomical Region Laterality Modality Other Specimen (Source) Anatomical Collection Method Collection Time Re ceived Time Location / / Volume Laterality 07/24/2007 10:49 PM CDT Impressions 07/24/2007 10:53 PM CDT EXAM: ?? US [...] limits. Markos Barton MD SPECIAL IMAGING STUDIES documented in this encounter Visit Diagnoses Not on filedocumented in this encounter
--- OUTSIDE RECORDS SUMMARY | 2022-08-17 09:22 | XMS_ITS | Encounter Summary ---
:1985 Author Organization [facility] Address [address] [place] [address]. [place] [address] Care Team Providers Name Role Phone Unavailable Primary Care Provider Unavailable Encounter Details Date Type Department Care Team Description 04/12/2005 Emergency room Doron Sargent EMERGENCY PHYSIC [facility] [address] [place] [address] (Wo rk) Social History Tobacco Use Types Packs/Day Years Used Date Smoking Tobacco: Never Assessed Sex Assigned at Date Recorded Not on file documented as of this encounter Progress Notes Interface, Business Performance Analyst - 04/12/2005 11:59 PM CDT : [birth year] CHIEF COMPLAINT: Left foot pain. 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 PLAN: Follow up with [facility] tomorrow as the pain is exquisite and she is not able to ambulate or bear weight. Should ice and elevate overnight until she sees Orthopedics. Parents said they would follow up, and Trinity said she definitely would go. There are no further questions or concerns. [id number] JOJO SARGENT MD MT: Document: [id number] [place], [place] Name: MR#: TRINITY AYALA -[birth year] EMERGENCY ROOM ENCOUNTER Page 2 of 2 LCN: ERC DSC: 04/12/2005 [place], [place] Name: MR#: TRINITY AYALA -[birth year] : Admit Date: Account #: 1985 04/12/2005 [id number] Doctor: JOJO SARGENT MD EMERGENCY ROOM ENCOUNTER Page 1 of 2 documented in this encounter Plan of Treatment Not on filedocumented as of this encounter Visit Diagnoses Not on filedocumented in this encounter
--- OUTSIDE RECORDS SUMMARY | 2022-08-17 09:22 | XMS_ITS | Clinical Summary ---
:1985 Author Organization [facility] Address [address] [place] [address] Care Team Providers Name Role Phone Unavailable Primary Care Provider Unavailable Source Comments Patient records contain information from all sites at [facility]. For routine questions regarding patient records, call [phone] during business hours, M-F 8:00 AM - 5:00 PM Central Time. Record requests for emergency care only can be directed to [phone] at any time.[facility] Allergies No known active allergies Medications Medication Sig Dispensed Refills Start End Date Status Date nitrofurantoin Take 1 2 Activ e monohydrate capsule by 9 (MACROBID) 100 mg mouth daily. capsule valACYclovir Take 1 tablet 0 Act viktoriya (VALTREX) 500 mg by mouth 2 9 tablet (two) times a day. lamoTRIgine Take 2 360 tablet 3 11/08/19 Active (LaMICtaL) 200 mg tablets (400 2 23 tablet mg total) by mouth 2 (two) times a day. DAW1 acetaZOLAMIDE Take 1 180 capsule 3 Acti ve (DIAMOX) 500 mg 12 capsule (500 2 hr capsule mg total) by mouth 2 (two) times a day. folic acid 1 mg Take 1 tablet 90 tablet 3 11/08/19 Active tablet (1,000 mcg 2 23 total) by mouth daily. levETIRAcetam Take 1 tablet 180 tablet 0 A ctive (KEPPRA) 1,000 mg (1,000 mg 2 tablet total) by mouth 2 (two) times a day. levETIRAcetam Take 1 tablet 180 tablet 0 08/04/20 D iscontinued (KEPPRA) 1,000 mg (1,000 mg 2 22 (R eorder) tablet total) by mouth 2 (two) times a day. 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 Med Refill from Last 3 Months Social History Tobacco Use Types Packs/Day Years Used Date Smoking Tobacco: Never Smokeless Tobacco: Never Alcohol Use Standard Drinks/Week Comments No 0 (1 standard drink = 0.6 oz pure alcoho l) Alcohol Habits Answer Date Recorded How often do you have a drink containing alcohol? Never 11/08/2021 How many drinks containing alcohol do you have on a typical day 1 or 2 08/25/2019 when you are drinking? How often do you have six or more drinks on one occasion? Ne emilee 10/10/2020 Social Isolation Answer Date Recorded In a typical week, how many times do you More than three susan es a week 11/08/2021 talk on the phone with family, friends, or neighbors? How often do you get together with friends Twice a week 11/08/2021 or relatives? How often do you attend scientology or Never 2021 latter day services? Do [...] or slept in a retirement (including now)? Education Answer Date Recorded What is the highest level of school you have Some college, n o degree 11/08/2021 completed or the highest degree you have received? 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 Pulse 76 08/25/2019 2:01 PM AIRCRAFT ENGINE TECHNICIAN Temperature - - Respiratory Rate - - Oxygen Saturation - - Inhaled Oxygen Concentration - - Weight 84.2 kg (185 lb 10 oz) 08/25/2019 2:01 PM AIRCRAFT ENGINE TECHNICIAN Height - - Body Mass Index - - Plan of Treatment Health Maintenance Due Date Last Done Comments Cervical Cancer Screening 1985 Creatinine Level 1985 HIV Screening 1985 Hepatitis B Vaccines (1 of 1987 3 - 3-dose series) Hepatitis C Screening 1985 Lipid (Cholesterol) 1987 Screening Potassium Level 1987 Sodium Level 1987 COVID-19 [...] ss Type Group BLUE CROSS ANTHEM BLUE [id number] 2018-Manuel [phone] [address] [place] X [id number] PPO [facility] ACCESS t [address] [place] [address]
--- OUTSIDE RECORDS SUMMARY | 2022-08-17 09:22 | XMS_ITS | Encounter Summary ---
:1985 Author Organization [facility] Address [address] [place] [address]. [place] [address] Care Team Providers Name Role Phone Unavailable Primary Care Provider Unavailable Encounter Details Date Type Department Care Team Description 10/12/2006 Emergency room Wander Arguello MD [address] [place] [address] [place] [address] Social History Tobacco Use Types Packs/Day Years Used Date Smoking Tobacco: Never Assessed Sex Assigned at Date Recorded Not on file documented as of this encounter Progress Notes Interface, Bottle Selector - 10/17/2006 10:17 AM WAFER LINE WORKER FINAL CHIEF COMPLAINT: Weakness. HISTORY OF PRESENT [...] has had some upper respiratory symptoms since [place] with a cough that has been nonproductive. [...] another EEG. She can do that through [facility] which is her primary clinic. In the [...] including her parent's and boyfriend. I will animal technician her a work slip excusing her from her duties for 2 days. She is to have an EEG done at [facility] as soon as possible and they can call today to set that up. The patient is to be rechecked with her doctor within 5-6 days, sooner if needed and may return to emergency department as needed. DIAGNOSIS: Seizure. Electronically signed on 10/17/2006 10:17 by WANDER ARGUELLO MD MT: MARIO#[id number] Name: TRINITY AYALA Account: [id number] : 1985 Visit Date: 10/12/2006 Document: [id number] R LINE WORKER documented in this encounter Plan of Treatment Not on filedocumented as of this encounter Visit Diagnoses Not on filedocumented in this encounter
--- OUTSIDE RECORDS SUMMARY | 2022-08-17 09:22 | XMS_ITS | Encounter Summary ---
:1985 Author Organization [place] Address [address] [place] [address]. [place] [address] Care Team Providers Name Role Phone Unavailable Primary Care Provider Unavailable Encounter Details Date Type Department Care Team Description 10/12/2006 Historic Results INTERFACED REPORT Wander Arguello MD [address] [place] [address] Social History Tobacco Use Types Packs/Day Years Used Date Smoking Tobacco: Never Assessed Sex Assigned at Date Recorded Not on file documented as of this encounter Plan of Treatment Not on filedocumented as of this encounter Procedures Procedure Name Priority Date/Time Associated Comments Diagnosis HEMOGRAM DIFFERENTIAL STAT 10/12/2006 8:45 AM Results for this AND PLATELET CIVIL ENGINEERING DIRECTOR procedure are i n the results section. HCG QUALITATIVE STAT 10/12/2006 8:45 AM Result s for this CIVIL ENGINEERING DIRECTOR procedure are i n the results section. BASIC METABOLIC PANEL STAT 10/12/2006 8:45 AM Results for this CIVIL ENGINEERING DIRECTOR procedure are i n the results section. documented in this encounter Results (ABNORMAL) Hemogram differential and platelet (10/12/2006 8:45 AM CIVIL ENGINEERING DIRECTOR) [facility] Method Time Signature MCV 89 [...] Volume Laterality 10/12/2006 8:45 AM 7 8:34 CIVIL ENGINEERING DIRECTOR AM CIVIL ENGINEERING DIRECTOR Wander Arguello MD LAB - BLOOD ORDERABLES Performing Organization Address City/State/ZIP Code Phon e Number MISYS Basic metabolic panel (10/12/2006 8:45 AM CIVIL ENGINEERING DIRECTOR) P athologist Signature Sodium 137 133 [...] Volume Laterality 10/12/2006 8:45 AM 7 8:34 CIVIL ENGINEERING DIRECTOR AM CIVIL ENGINEERING DIRECTOR Wander Arguello MD LAB - BLOOD ORDERABLES Performing Organization Address City/[facility] Phon e Number MISYS HCG qualitative (10/12/2006 8:45 AM CIVIL ENGINEERING DIRECTOR) [facility] gist Method Time Signature HCG Qualitative Negative NEG MISYS Serum Specimen Anatomical Collection Method Collection Time Receive d Time (Source) Location / / Volume Laterality 10/12/2006 8:45 AM 7 8:34 CIVIL ENGINEERING DIRECTOR AM CIVIL ENGINEERING DIRECTOR Wander Arguello MD LAB - BLOOD ORDERABLES Performing Organization Address City/[facility] Phon e Number MISYS documented in this encounter Visit Diagnoses Not on filedocumented in this encounter
--- OUTSIDE RECORDS SUMMARY | 2022-08-17 09:23 | XMS_ITS | Encounter Summary ---
:1985 Author Organization [facility] Address [address] [place] [address] Care Team Providers Name Role Phone Unavailable Primary Care Provider Unavailable Encounter Details Date Type Department Care Team Description 12/22/2019 Clinical Communication Department of Sleep Rui Godinez, Medicine in Karyn Gee, M.P .H. [place] [address] [place] [phone] Social History Tobacco Use Types Packs/Day [...] or relatives? How often do you attend orthodoxy or Never 2021 confucianist services? Do you belong to any clubs or No 11/08/2021 organizations such as orthodoxy groups, unions, fraternal or athletic groups, or [...] Miscellaneous Notes Telephone Encounter - Anayeli Garcia, CMichaelM.Esperanza - 12/25/2019 2:47 PM CDT Spoke with [facility] in [place] regarding patient's prescription for lamotrigine. The newest [...] in regards to her generic script. Stating [facility] has not received it. Patient will be calling [facility], again. Current Can Nursing/Provider leave a detailed message: Action Needed: Please review and advise. Name of Medication (if relevant): Telephone Encounter - Dena Mendiola LMichaelPMichaelNMichael - 12/23/2019 10:28 AM CDT Patient is requesting the following information: New rx for Lamictal in generic form to be sent to [facility] in [place] PLAN The following information was provided : [...] generic of this medication over to the [facility] pharmacy in [place] instead. Please advise. Current Can Nursing/Provider leave a detailed message: Did the patient refuse triage through Nurse line? (for symptom based concerns): Action Needed: Send generic to [facility] in [place] Name of Medication (if relevant): Lamictal (Generic form) documented in this encounter Plan of Treatment Not on filedocumented as of this encounter Visit Diagnoses Not on filedocumented in this encounter
--- OUTSIDE RECORDS SUMMARY | 2022-08-17 09:23 | XMS_ITS | Encounter Summary ---
:1985 Author Organization [facility] Address [address] [place] [address] Care Team Providers Name Role Phone Unavailable Primary Care Provider Unavailable Reason for Referral Outpatient (Routine) - Closed Specialty Diagnoses / Procedures Referred By Contact Refer red To Contact Neurology Rui Godinez M.D ., M.P.H. [facility] [address] [place] [address] Referral ID Status Reason Start Date Expiration Date Visits Requ ested Visits Authorized [id number] Closed 02/02/2019 02/02/2020 1 1 Reason for Visit Reason Comments Seizures Follow-up Appointment Request (Routine) - Closed Specialty Diagnoses / Procedures Referred By Contact Refer red To Contact Neurology Referral ID Status Reason Start Date Expiration Date Visits Requ ested Visits Authorized [id number] Closed 01/07/2019 01/07/2020 1 Encounter Details Date Type Department Care Team Description 02/02/2019 Comprehensive Visit Department of Rui Godinez Focal C omplex Partial Epilepsy Not Intractable Without Status Epilepticus (HCC) (Primary Dx); Neurology in Karyn Kaplan, Not R neri For Visit [place], [place] M.P.H. [address] [facility] [address] [place], [place] [phone] Social History Tobacco Use Types Packs/Day [...] or relatives? How often do you attend holiness or Never 2021 yarsani services? Do you belong to any clubs or No 11/08/2021 organizations such as holiness groups, unions, fraternal or athletic groups, or [...] is known to me from visits in [facility] where she was planning to become . [...] from 01/17/2018 was 12 with a range [id number] and lamotrigine serum concentration was 4.8 with a range being 2.5-15 and [facility]. I gave her handout from [facility] on in epilepsy as she contemplating having her Mirena IUD removed and to become . She was on Keppra 1000 mg b.i.d. and lamotrigine 200 mg b.i.d.. At today's visit she remains on 1000 mg of levetiracetam and is on 400 mg b.i.d. of lamotrigine or twice the previous dose. Her lamotrigine serum concentration was checked on January 26 at [facility] in level was 8.4 micro g per [...] Alert and oriented x 4. CRANIAL NERVES: immigration associate II-XII intact and symmetric. MOTOR: Full strength [...] be cut back to pre doses. The [place] epilepsy Society recommends breast-feeding for women even [...] Name Type Priority Associated Diagnoses Order S [facility] Neurology office Outpatient Referral Routine Expe cted: visit (clinic) 08/04/2019 (Approximate), Expires: 02/02/2022 documented as of this encounter Visit Diagnoses Diagnosis Focal Complex Partial Epilepsy Not Intra ctable Without Status Epilepticus (HCC) - Primary Not Reason For Visit (HCC) documented in this encounter
--- OUTSIDE RECORDS SUMMARY | 2022-08-17 09:23 | XMS_ITS | Encounter Summary ---
:1985 Author Organization [facility] Address [address] [place] [address] Care Team Providers Name Role Phone Unavailable Primary Care Provider Unavailable Encounter Details Date Type Department Care Team Description 08/06/2019 Clinical Communication Department of Sleep Rui Godinez, Medicine in Karyn Gee, M.P .H. [place] [address] [place] [phone] Social History Tobacco Use Types Packs/Day [...] many times do you More than three suasn es a week 11/08/2021 talk on the phone with family, friends, or neighbors? How often do you get together with friends Twice a week 11/08/2021 or relatives? How often do you attend hinduism or Never 2021 yarsani services? Do you belong to any clubs or No 11/08/2021 organizations such as hinduism groups, unions, fraternal or athletic groups, or [...]
--- OUTSIDE RECORDS SUMMARY | 2022-08-17 09:23 | XMS_ITS | Encounter Summary ---
:1985 Author Organization [facility] Address [address] [place] [address] Care Team Providers Name Role Phone Unavailable Primary Care Provider Unavailable Encounter Details Date Type Department Care Team Description 12/24/2019 Clinical Communication Department of Sleep Rui Godinez, Medicine in Karyn Gee, M.P .H. [place] [address] [place] [phone] Social History Tobacco Use Types Packs/Day [...] or relatives? How often do you attend tenriism or Never 2021 amish services? Do you belong to any clubs or No 11/08/2021 organizations such as tenriism groups, unions, fraternal or athletic groups, or [...] the highest level of school Associate degree: [employer] program 08/25/2019 you have completed or [...] CDT Reason for Communication: Keep entering Lamo [id number] mg And the patient doesn't want this. She wants the generic and then she wants the brand name. Pharmacist would like a call to talk about the situation. Current Can Nursing/Provider leave a detailed message: Did the patient refuse triage through Nurse line? (for symptom based concerns): Action Needed: [facility] Name of Medication (if relevant): Lamo TRIgine documented in this encounter Plan of Treatment Not on filedocumented as of this encounter Visit Diagnoses Not on filedocumented in this encounter
--- OUTSIDE RECORDS SUMMARY | 2022-08-17 09:23 | XMS_ITS | Encounter Summary ---
:1985 Author Organization [facility] Address [address] [place] [address] Care Team Providers Name Role Phone Unavailable Primary Care Provider Unavailable Encounter Details Date Type Department Care Team Description 12/24/2019 Orders Only [facility] Trinity Brink [address] [facility] [phone] (W ork) [address] [place] [address] Social History Tobacco Use [...] do you attend lutheran or Never 2021 nondenominational services? Do you [...]
--- OUTSIDE RECORDS SUMMARY | 2022-08-17 09:23 | XMS_ITS | Encounter Summary ---
:1985 Author Organization [facility] Address [address] [place] [address] Care Team Providers Name Role Phone Unavailable Primary Care Provider Unavailable Reason for Visit Reason Comments Med Refill Encounter Details Date Type Department Care Team Description 01/30/2021 Refill Department of Neurology in Rui Godinez M.D., Med Refill [place], [place] M.P.H. [address] [place] [address] [place] [address] [phone] (Wo rk) Social History Tobacco Use Types [...] do you attend sabianist or Never 2021 caodaism services? Do you [...]
--- OUTSIDE RECORDS SUMMARY | 2022-08-17 09:23 | XMS_ITS | Encounter Summary ---
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 [address] [place] [address] Referral ID Status Reason Start Date Expiration Date Visits Requ ested Visits Authorized [id number] Closed 10/10/2020 10/10/2021 1 1 ROOM SALES CONSULTANT Reason for Visit Outpatient (Routine) - Closed Specialty Diagnoses / Procedures Referred By Contact Refer red To Contact Neurology Rui Godinez M.D ., M.P.H. [facility] [address] [place] [address] Referral ID Status Reason Start Date Expiration Date Visits Requ ested Visits Authorized [id number] Closed 08/25/2019 08/24/2020 1 1 Encounter Details Date Type Department Care Team Description 10/10/2020 Telemedicine Department of Rui Godinez, Edgar Comp tripp Partial Neurology in Karyn Bose, M.P .H. Epilepsy Not [place] [address] [place] [address] Intractable Without [address] [place], [place] [address] (HCC) (Primary Dx) [phone] Social History Tobacco [...] do you attend holiness or Never 2021 restorationism services? Do you [...] the highest level of school Associate degree: [employer], 10/10/2020 you have completed or the highest technical, or vocational p rogram degree you have received? Sex Assigned at Date Recorded Female 02/02/2019 3:06 PM CDT documented as of this encounter Progress Notes Rui Godinez M.D., M.P.H. - 10/10/2020 9:15 AM CST SUBJECTIVE Consult conducted via real-time audio/video technology by Rui Godinez M.D., M.P.H. from [facility] to the patient in their home. Virtual visit between Dr. Godinez and Trinity. Trinity is a 35 y.o. female who agreed to a virtual visit. HISTORY OF PRESENT ILLNESS This patient is one whom I have seen in [facility] previously in addition to two prior visit here at [facility]. She remained seizure-free and side effect free previously she has delivered a child and a had been on folic acid 1 mg prescription but has now acquired [id number] folic acid she is taking that. She [...] lamotrigine as CIERA. I her child's night [id number] doing well. She has no concerns. The [...] preparation, and the actual timeduring the video. ROOM SALES CONSULTANT documented in this encounter Plan of [...]
--- OUTSIDE RECORDS SUMMARY | 2022-08-17 09:23 | XMS_ITS | Encounter Summary ---
:1985 Author Organization [facility] Address [address] [place] [address] Care Team Providers Name Role Phone Unavailable Primary Care Provider Unavailable Reason for Visit Reason Comments Med Refill Encounter Details Date Type Department Care Team Description 10/27/2020 Refill Department of Neurology in Rui Godinez M.D., Med Refill [place], [place] M.P.H. [address] [place] [address] [place] [address] [phone] (Wo rk) Social History Tobacco Use Types [...] or relatives? How often do you attend moravian or Never 2021 anglican services? Do you belong to any clubs or No 11/08/2021 organizations such as moravian groups, unions, fraternal or athletic groups, or [...]
--- OUTSIDE RECORDS SUMMARY | 2022-08-17 09:23 | XMS_ITS | Encounter Summary ---
:1985 Author Organization [facility] Address [address] [place] [address] Care Team Providers Name Role Phone Unavailable Primary Care Provider Unavailable Reason for Visit Reason Onset Date Comments Med Refill 11/26/2019 Encounter Details Date Type Department Care Team Description 11/26/2019 Clinical Communication Department of Sleep Rui Godinez, Med Refill Medicine in Karyn Gee, M.P .H. [place] [address] [place] [phone] Social History Tobacco Use Types Packs/Day Years [...] or relatives? How often do you attend baptism or Never 2021 restoration services? Do you belong to any clubs or No 11/08/2021 organizations such as baptism groups, unions, fraternal or athletic groups, or [...] the highest level of school Associate degree: [employer] program 08/25/2019 you have completed or the highest degree you have received? Sex Assigned at Date Recorded Female 02/02/2019 3:06 PM CDT documented as of this encounter Miscellaneous Notes Telephone Encounter - Diana Candelario - 11/26/2019 8:16 AM CST Name of Medication: Lamotrigine Primary Provider: Rui Godinez M.D. Strength: 200 mg Frequency: Take 1 tablet twice a day Pharmacy (include location): [facility] in [place] [phone] ER PROGRAM CONSULTANT documented in this encounter Plan of Treatment Not on filedocumented as of this encounter Visit Diagnoses Not on filedocumented in this encounter
--- OUTSIDE RECORDS SUMMARY | 2022-08-17 09:23 | XMS_ITS | Encounter Summary ---
:1985 Author Organization [facility] Address [address] [place] [address] Care Team Providers Name Role Phone Unavailable Primary Care Provider Unavailable Encounter Details Date Type Department Care Team Description 02/19/2019 Orders Only Department of Neurology in Rui Godinez M.D., [place], [place] M.P.H. [address] [place] [address] [address] [place] [address] [place], [place] [phone] (Wo rk) Social History Tobacco Use [...] do you attend anabaptism or Never 2021 adventism services? Do you [...]
--- OUTSIDE RECORDS SUMMARY | 2022-08-17 09:23 | XMS_ITS | Encounter Summary ---
:1985 Author Organization [facility] Address [address] [place] [address] Care Team Providers Name Role Phone Unavailable Primary Care Provider Unavailable Encounter Details Date Type Department Care Team Description 02/01/2021 Orders Only [facility] Sa rima Valentin M.D. [address] [place], [place] [phone] (Wo rk) Social History [...] do you attend buddhism or Never 2021 voodoo services? Do you [...]
--- OUTSIDE RECORDS SUMMARY | 2022-08-17 09:23 | XMS_ITS | Encounter Summary ---
:1985 Author Organization [facility] Address [address] [place] [address] Care Team Providers Name Role Phone Unavailable Primary Care Provider Unavailable Encounter Details Date Type Department Care Team Description 12/23/2019 Clinical Communication Department of Neurology Rui Godinez, in [facility] kandis Boss, M.P.H. [address] [place] [address] [address], [place] [phone] Social History Tobacco Use Types [...] do you attend yazdanism or Never 2021 church services? Do you [...] the highest level of school Associate degree: [employer] program 08/25/2019 you have completed or the highest degree you have received? Sex Assigned at Date Recorded Female 02/02/2019 3:06 PM CDT documented as of this encounter Plan of Treatment Not on filedocumented as of this encounter Visit Diagnoses Not on filedocumented in this encounter
--- OUTSIDE RECORDS SUMMARY | 2022-08-17 09:23 | XMS_ITS | Encounter Summary ---
:1985 Author Organization [facility] Address [address] [place] [address] Care Team Providers Name Role Phone Unavailable Primary Care Provider Unavailable Reason for Referral Outpatient (Routine) - Closed Specialty Diagnoses / Procedures Referred By Contact Refer red To Contact Neurology Rui Godinez M.D ., M.P.H. [facility] [address] [address] Referral ID Status Reason Start Date Expiration Date Visits Requ ested Visits Authorized [id number] Closed 08/25/2019 08/24/2020 1 1 SPREADER Reason for Visit Reason Comments Seizures Outpatient (Routine) - Closed Specialty Diagnoses / Procedures Referred By Contact Refer red To Contact Neurology Rui Godinez M.D ., M.P.H. [facility] [address] [place] [phone] Referral ID Status Reason Start Date Expiration Date Visits Requ ested Visits Authorized [id number] Closed 02/02/2019 02/02/2020 1 1 Encounter Details Date Type Department Care Team Description 08/25/2019 Office Visit Department of Rui Godinez, Focal Comp tripp Partial Neurology in Karyn Bose, M.P .H. Epilepsy Not [place] [address] [place] [address] Intractable Without [address] [place], [place] Status [place]ileptic[place] [address] ([facility]) (Primary Dx) [phone] Social History Tobacco Use Types Packs/Day Years [...] do you attend faith or Never 2021 restorationism services? Do you [...] highest level of school Associate degree: [employer] program 08/25/2019 you have completed or the highest degree you have received? Sex Assigned at Date Recorded Female 02/02/2019 3:06 PM CDT documented as of this encounter Last Filed Vital Signs Vital Sign Reading Time Taken Comments Blood Pressure 116/74 08/25/2019 2:01 PM LIME SPREADER Pulse 76 08/25/2019 2:01 PM LIME SPREADER Temperature - - Respiratory Rate - - Oxygen Saturation - - Inhaled Oxygen Concentration - - Weight 84.2 kg (185 lb 10 oz) 08/25/2019 2:01 PM LIME SPREADER Height - - Body Mass Index - [...] the her prior neurologist up in the [facility] who had evaluated her with neuro imaging [...] More than three times a week Attends restorationism service: Never Active member of club or [...] Alert and oriented x 4. CRANIAL NERVES: regional airline pilot II-XII intact and symmetric. No diplopia or [...] half was counseling. Rui Godinez M.D., M.P.H. 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
--- OUTSIDE RECORDS SUMMARY | 2022-08-17 09:23 | XMS_ITS | Encounter Summary ---
:1985 Author Organization [facility] Address [address] [place] [address] Care Team Providers Name Role Phone Unavailable Primary Care Provider Unavailable Reason for Visit Reason Comments Med Refill Encounter Details Date Type Department Care Team Description 10/13/2021 Refill Department of Neurology in Rui Godinez M.D., Med Refill [place], [place] M.P.H. [address] [place] [address] [place] [address] [phone] (Wo rk) Social History Tobacco Use Types [...] Karina Amanda M.D. - 10/16/2021 9:43 AM GO GO DANCER I approved short term refills. Pt has only seen Neurology in our clinic. I will defer to your team for longer term refills or have her set up PCP in [place]. GO DANCER documented in this encounter Plan of Treatment Not on filedocumented as of this encounter Visit Diagnoses Not on filedocumented in this encounter
--- OUTSIDE RECORDS SUMMARY | 2022-08-17 09:23 | XMS_ITS | Encounter Summary ---
:1985 Author Organization [facility] Address [address] [place] [address] Care Team Providers Name Role Phone Unavailable Primary Care Provider Unavailable Encounter Details Date Type Department Care Team Description 12/22/2019 Refill Department of Sleep Medicine in Rui Godinez M.D., [place], [place] M.P.H. [address] [place] [address] [place] [address] (Wo rk) Social History Tobacco [...] do you attend spiritism or Never 2021 zoroastrian services? Do you [...] the highest level of school Associate degree: [employer] program 08/25/2019 you have completed or the highest degree you have received? Sex Assigned at Date Recorded Female 02/02/2019 3:06 PM CDT documented as of this encounter Plan of Treatment Not on filedocumented as of this encounter Visit Diagnoses Not on filedocumented in this encounter
--- OUTSIDE RECORDS SUMMARY | 2022-08-17 09:23 | XMS_ITS | Encounter Summary ---
:1985 Author Organization [facility] Address [address] [place] [address] Care Team Providers Name Role Phone Unavailable Primary Care Provider Unavailable Reason for Visit Reason Onset Date Comments Neurology Suggestions 01/06/2019 Encounter Details Date Type Department Care Team Description 01/06/2019 Clinical Communication Department of Rui Godinez Neurology in Karyn Kaplan, Suggestions Eduardo Gee. [place] [phone] [address] [phone] Social History Tobacco Use [...] do you attend anabaptist or Never 2021 yazidi services? Do you belong to any clubs [...] AM CDT Lets get her in to [place] Telephone Encounter - Sally Wallis L.P.N. - 01/06/2019 1:52 PM CDT Spoke to Trinity. Patient's delivery date is 02/28/19. Since patient is not able to get in to see you before delivery date OB Gia Kirkland at [facility] would like for you to touch base with her in regards to how much seizure medication - increase/decrease. Labs and what to do after delivery. Telephone Encounter - Diana Candelario - 01/06/2019 1:33 PM CDT Patient returning phone call. Please advise. Ok to leave a detailed VM. Call back at [phone] Telephone Encounter - Sally Wallis L.P.N. - 01/06/2019 10:46 AM CDT Attempted to contact patient. Patient has been seen in [place] for seizures. At this time there is [...]
--- OUTSIDE RECORDS SUMMARY | 2022-08-17 09:23 | XMS_ITS | Encounter Summary ---
:1985 Author Organization [facility] Address [address] [place] [address] Care Team Providers Name Role Phone Unavailable Primary Care Provider Unavailable Reason for Visit Reason Comments Med Refill Encounter Details Date Type Department Care Team Description 08/02/2022 Refill Department of Neurology in Rui Godinez M.D., Med Refill [place], [place] M.P.H. [address] [place] [address] [place] [address] [phone] (Wo rk) Social History Tobacco Use Types [...] do you attend orthodoxy or Never 2021 anabaptist services? Do you [...]
--- OUTSIDE RECORDS SUMMARY | 2022-08-17 09:23 | XMS_ITS | Encounter Summary ---
:1985 Author Organization [facility] Address [address] [place] [address] Care Team Providers Name Role Phone Unavailable Primary Care Provider Unavailable Reason for Visit Reason Comments Med Refill Encounter Details Date Type Department Care Team Description 02/18/2019 Refill Department of Josi Quach A PRN, Med Refill Medicine, [facility], in [place], [place] [address] [facility] [address] [place] [address] [place] [address] [phone] Social History Tobacco Use Types Packs/Day Years [...] do you attend druze or Never 2021 adventist services? Do you [...] PM CDT Medication was prescribed by Dr Riu Godinez in [facility] med. Telephone Encounter - Sarah Hurd, R.M.AMichael [...] 2 tablets by mouth twice daily Pharmacy[place] Pharmacy Comment: now 8 tabs 10 mg per patient documented in this encounter Plan of Treatment Not on filedocumented as of this encounter Visit Diagnoses Not on filedocumented in this encounter
--- OUTSIDE RECORDS SUMMARY | 2022-08-17 09:23 | XMS_ITS | Encounter Summary ---
:1985 Author Organization [facility] Address [address] [place] [address] Care Team Providers Name Role Phone Unavailable Primary Care Provider Unavailable Reason for Visit Reason Comments Med Refill Encounter Details Date Type Department Care Team Description 08/08/2021 Refill Department of Neurology in Rui Godinez M.D., Med Refill [place], [place] M.P.H. [address] [place] [address] [place] [address] [phone] (Wo rk) Social History Tobacco Use Types [...] do you attend episcopal or Never 2021 pentecostal services? Do you belong to any clubs [...]
--- OUTSIDE RECORDS SUMMARY | 2022-08-17 09:23 | XMS_ITS | Encounter Summary ---
:[address] [facility] Address [address] [place] [address] Care Team Providers Name Role Phone Unavailable Primary Care Provider Unavailable Encounter Details Date Type Department Care Team Description 11/23/2020 Orders Only [facility] Colt Martinez, Pcp [address] [place] [address] Social History Tobacco Use Types Packs/Day Years [...] do you attend buddhism or Never 2021 yazidi services? Do you [...]
--- OUTSIDE RECORDS SUMMARY | 2022-08-17 09:23 | XMS_ITS | Encounter Summary ---
:1985 Author Organization [facility] Address [address] [place] [address] Care Team Providers Name Role Phone Unavailable Primary Care Provider Unavailable Reason for Referral Outpatient (Routine) - Authorized Specialty Diagnoses / Procedures Referred By Contact Refer red To Contact Neurology Rui Godinez M.D ., M.P.H. 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 [address] [place] [address] Referral ID Status Reason Start Date Expiration Date Visits Requ ested Visits Authorized [id number] Closed 10/10/2020 10/10/2021 1 1 Encounter Details Date Type Department Care Team Description 11/08/2021 Telemedicine Department of Rui Godinez, Focal Comp tripp Partial Neurology in [place]aryn, M.P.H. Epilepsy Not [place], [place] [address] Intractable Without [address] [place], [place] [address] (HCC) [phone] Social History Tobacco Use Types [...] do you attend taoist or Never 2021 mormon services? Do you [...] technology by Rui Godinez M.D., M.P.H. from [facility] to the patient in their home. [...] Simpson's in Dr. Barnhart up in the [facility]. Interested reader is directed to that note from 02/02/2019. She had not any seizures since I follow her here in [place] and it has been a year since [...] preparation, and the actual timeduring the video. CH TEACHER documented in this encounter Plan of Treatment Scheduled Referrals Name Type Priority Associated Diagnoses Order [facility] Neurology office Outpatient Referral Routine Expe cted: visit (clinic) 11/08/2022 (Approximate), Expires: 02/05/2023 documented as of this encounter Visit Diagnoses Diagnosis Focal Complex Partial Epilepsy Not Intra ctable Without Status Epilepticus (HCC) documented in this encounter
--- OUTSIDE RECORDS SUMMARY | 2022-08-17 09:23 | XMS_ITS | Encounter Summary ---
:1985 Author Organization [facility] Address [address] [place] [address] Care Team Providers Name Role Phone Unavailable Primary Care Provider Unavailable Reason for Visit Reason Onset Date Comments pharm calling for dosage verification 12/01/2019 Encounter Details Date Type Department Care Team Description 12/01/2019 Clinical Communication Department of Rui Godinez calling for Neurology in Karyn Kaplan, dosage verifica Tereso FitzgeraldPShaista [place] [address] [phone] Social History Tobacco Use Types Packs/Day [...] or relatives? How often do you attend mandaen or Never 2021 caodaism services? Do you belong to any clubs or No 11/08/2021 organizations such as mandaen groups, unions, fraternal or athletic groups, or [...] the highest level of school Associate degree: [employer] program 08/25/2019 you have completed or the highest degree you have received? Sex Assigned at Date Recorded Female 02/02/2019 3:06 PM CDT documented as of this encounter Miscellaneous Notes Telephone Encounter - Nivia Beasley - 12/01/2019 8:50 AM CST Reason for Communication: [facility] in [place] called to verify dosage of Lamictal. Current Can Nursing/Provider leave a detailed message: Did the patient refuse triage through Nurse line? (for symptom based concerns): Action Needed: please call Name of Medication (if relevant): H OR CONTINUOUS STILL OPERATOR documented in this encounter Plan of Treatment Not on filedocumented as of this encounter Visit Diagnoses Not on filedocumented in this encounter
--- OUTSIDE RECORDS SUMMARY | 2022-08-17 09:23 | XMS_ITS | Encounter Summary ---
:1985 Author Organization [facility] Address [address] [place] [address] Care Team Providers Name Role Phone Unavailable Primary Care Provider Unavailable Encounter Details Date Type Department Care Team Description 11/29/2018 Orders Only [facility] - Humaira Beltran [address] [place] [address] Social History Tobacco Use Types [...] or relatives? How often do you attend nondenominational or Never 2021 caodaism services? Do you belong to any clubs or No 11/08/2021 organizations such as nondenominational groups, unions, fraternal or athletic groups, or [...]
--- OUTSIDE RECORDS SUMMARY | 2022-08-17 09:23 | XMS_ITS | Encounter Summary ---
:1985 Author Organization [facility] Address [address] [place] [address] Care Team Providers Name Role Phone Unavailable Primary Care Provider Unavailable Encounter Details Date Type Department Care Team Description 11/20/2018 Clinical Communication Department of Sally Wallis Neurology in [place], [place] [address] [phone] Social History Tobacco Use Types Packs/Day Years [...] or relatives? How often do you attend restorationism or Never 2021 nondenominational services? Do you belong to any clubs or No 11/08/2021 organizations such as restorationism groups, unions, fraternal or athletic groups, or [...] Sally Wallis L.P.N. - 11/20/2018 9:07 AM HEEL FINISHER Contacted patient. This message is in reference to the message on 11/18/18. Received call from Mary REV CYCLE ACCT RESP. Phone number [phone] that call has been placed to see what the status was on Levetiracetam. The cost is $2000.00 . This is a out- of - pocket expense not a co-pay. Therefore there is nothing further that can be done to lower the cost. Patient has been made aware of this. FINISHER documented in this encounter Plan of Treatment Not on filedocumented as of this encounter Visit Diagnoses Not on filedocumented in this encounter
--- OUTSIDE RECORDS SUMMARY | 2022-08-17 09:23 | XMS_ITS | Encounter Summary ---
:1985 Author Organization [facility] Address [address] [place] [address] Care Team Providers Name Role Phone Unavailable Primary Care Provider Unavailable Encounter Details Date Type Department Care Team Description 03/29/2022 Orders Only Department of Sleep Rui Godinez Foca l Complex Partial Medicine in Karyn Gee, M.P .H. Epilepsy Not [place] [address] Intractable Without [address] [place], [place] [phone] (HCC) (Primary Dx) [address] Social History Tobacco Use [...] do you attend anabaptism or Never 2021 synagogue services? Do you [...]
--- OUTSIDE RECORDS SUMMARY | 2022-08-17 09:23 | XMS_ITS | Encounter Summary ---
:1985 Author Organization [facility] Address [address] [place] [address] Care Team Providers Name Role Phone Unavailable Primary Care Provider Unavailable Encounter Details Date Type Department Care Team Description 08/07/2021 Clinical Communication Department of Neurology Rui Godinez, in Navya Bose M.D., M.P.H. [address] [place] [address] [place], [place] [phone] Social History Tobacco Use Types Packs/Day [...] do you attend shinto or Never 2021 yarsani services? Do you [...] or the highest technical, or vocational p calliram degree you have received? Sex Assigned at Date Recorded Female 02/02/2019 3:06 PM CDT documented as of this encounter Miscellaneous Notes Telephone Encounter - Sally Wallis L.P.N. - 09/05/2021 8:42 AM SENIOR HRIS ANALYST Portal message sent. OR HRIS ANALYST Telephone Encounter - Sally Wallis L.P.N. - 08/16/2021 2:10 PM SENIOR HRIS ANALYST Message left to return call. OR HRIS ANALYST Telephone Encounter - Sally Wallis L.P.N. [...]
--- OUTSIDE RECORDS SUMMARY | 2022-08-17 09:23 | XMS_ITS | Encounter Summary ---
:1985 Author Organization [facility] Address [address] [place] [address] Care Team Providers Name Role Phone Unavailable Primary Care Provider Unavailable Reason for Visit Reason Comments Med Refill Encounter Details Date Type Department Care Team Description 05/08/2021 Refill Department of Neurology in Rui Goidnez M.D., Med Refill [place], [place] M.P.H. [address] [place] [address] [place] [address] [phone] (Wo rk) Social History Tobacco Use Types [...] do you attend jain or Never 2021 congregation services? Do you belong to any clubs [...]
--- OUTSIDE RECORDS SUMMARY | 2022-08-17 09:23 | XMS_ITS | Encounter Summary ---
:1985 Author Organization [facility] Address [address] [place] [address] Care Team Providers Name Role Phone Unavailable Primary Care Provider Unavailable Encounter Details Date Type Department Care Team Description 11/14/2018 Orders Only [facility] - Humaira Beltran [address] [place] [address] Social History Tobacco Use Types [...] or relatives? How often do you attend mosque or Never 2021 restoration services? Do you belong to any clubs or No 11/08/2021 organizations such as mosque groups, unions, fraternal or athletic groups, or [...]
--- OUTSIDE RECORDS SUMMARY | 2022-08-17 09:23 | XMS_ITS | Encounter Summary ---
:1985 Author Organization [facility] Address [address] [place] [address] Care Team Providers Name Role Phone Unavailable Primary Care Provider Unavailable Reason for Visit Reason Comments Med Refill Encounter Details Date Type Department Care Team Description 09/28/2020 Refill Department of Neurology in Rui Godinez M.D., Med Refill [place], [place] M.P.H. [address] [place] [address] [place] [address] [phone] (Wo rk) Social History Tobacco Use Types [...] do you attend anabaptist or Never 2021 spiritism services? Do you belong to any clubs [...] the highest level of school Associate degree: [employer] program 08/25/2019 you have completed or the highest degree you have received? Sex Assigned at Date Recorded Female 02/02/2019 3:06 PM CDT documented as of this encounter Plan of Treatment Not on filedocumented as of this encounter Visit Diagnoses Not on filedocumented in this encounter
--- OUTSIDE RECORDS SUMMARY | 2022-08-17 09:23 | XMS_ITS | Encounter Summary ---
:1985 Author Organization [facility] Address [address] [place] [address] Care Team Providers Name Role Phone Unavailable Primary Care Provider Unavailable Reason for Visit Reason Onset Date Comments Rx issues 11/18/2018 Encounter Details Date Type Department Care Team Description 11/18/2018 Clinical Communication Department of Neurology Rui Godinez, Rx issues in [facility] kandis Boss, M.P.H. [address] [place] [address] [address], [place] [address] Social History Tobacco Use [...] do you attend nondenominational or Never 2021 anglican services? Do you [...] Dena Mendiola L.P.N. - 11/18/2018 10:55 AM TRANSIT DEPARTMENT CLERK I called [facility], She is needing refills [...] informed that Dr. Godinez recommends meeting with Resident Care Technician and Pharmacist to see if help can be obtained for the high out of pocket cost. Patient agrees to this. SIT DEPARTMENT CLERK Telephone Encounter - Sally Wallis L.P.N. - 11/18/2018 10:13 AM TRANSIT DEPARTMENT CLERK Contacted [facility]. Informed that I called the number provided for prior auth exception request form at . Forms had been faxed on 10/21/18. Was told to refax and put urgent on the request. Fax to . SIT DEPARTMENT CLERK Telephone Encounter - Zahra Perez - 11/18/2018 7:32 AM CST Patient calling regarding Rx has to be a name brand. Please call back [phone] SIT DEPARTMENT CLERK documented in this encounter Plan of Treatment Not on filedocumented as of this encounter Visit Diagnoses Diagnosis Seizure (HCC) - Primary documented in this encounter
--- OUTSIDE RECORDS SUMMARY | 2022-08-17 09:23 | XMS_ITS | Encounter Summary ---
:1985 Author Organization [facility] Address [address] [place] [address] Care Team Providers Name Role Phone Unavailable Primary Care Provider Unavailable Reason for Visit Reason Onset Date Comments Med Refill 11/26/2019 Encounter Details Date Type Department Care Team Description 11/26/2019 Refill Department of Sleep Medicine in Rui Godinez M.D., Med Refill [place], [place] M.P.H. [address] [place] [address] [place] [address] (Wo rk) Social History Tobacco [...] do you attend judaism or Never 2021 mosque services? Do you [...] the highest level of school Associate degree: [employer] program 08/25/2019 you have completed or the highest degree you have received? Sex Assigned at Date Recorded Female 02/02/2019 3:06 PM CDT documented as of this encounter Miscellaneous Notes Telephone Encounter - Sally Wallis L.P.N. - 11/26/2019 11:22 AM PARACHUTE MARKER Contacted patient. Confirmed with patient Directions for Lamictal. Stated that she is taking Lamictal 200 mg one tablet two times a day. CHUTE MARKER Telephone Encounter - Liz Crockett - 11/26/2019 8:54 AM CST Images from the original note were not included. Name of Medication: Lamotrigine ?? Primary Provider: Rui Godinez M.D. ?? Strength: 200 mg ?? Frequency: Take 1 tablet twice a day ?? Pharmacy (include location): [facility] [phone] ?? Documentation CHUTE MARKER documented in this encounter Plan of Treatment Not on filedocumented as of this encounter Visit Diagnoses Not on filedocumented in this encounter
--- OUTSIDE RECORDS SUMMARY | 2022-08-17 09:23 | XMS_ITS | Encounter Summary ---
:[address] [facility] Address [address] [place] [address] Care Team Providers Name Role Phone Unavailable Primary Care Provider Unavailable Reason for Visit Reason Onset Date Comments Medical Information 11/18/2018 Encounter Details Date Type Department Care Team Description 11/18/2018 Clinical Department of Francisca Godinez Medical Communication Family MedicineKassy M.D. Information [facility], [address] in [facility] [phone] [place] [address] [place], [place] (Work) [phone] Social History Tobacco Use [...] do you attend gnosticism or Never 2021 orthodox services? Do you [...] Sally Wallis L.P.N. - 11/18/2018 2:40 PM BUSINESS PROCESS MODELER [place] notes are under Document Viewer. NESS PROCESS MODELER Telephone Encounter - Vincenzo Spivey - 11/18/2018 11:28 AM CST Reason for Communication: [facility] in [place] called and they need a prior Authorization for the medication, Tarsha please advise. Current Can Nursing/Provider leave a detailed message: Did the patient refuse triage through Nurse line? (for symptom based concerns) Action Needed: Name of Medication (if relevant): tarsha NESS PROCESS MODELER documented in this encounter Plan of Treatment Not on filedocumented as of this encounter Visit Diagnoses Not on filedocumented in this encounter
--- OUTSIDE RECORDS SUMMARY | 2022-08-17 09:23 | XMS_ITS | Encounter Summary ---
:1985 Author Organization [facility] Address [address] [place] [address] Care Team Providers Name Role Phone Unavailable Primary Care Provider Unavailable Encounter Details Date Type Department Care Team Description 02/18/2019 Clinical Communication Department of Rui Sommers, Medicine, Lidya Boss, M.P.H. [facility], [address] [place], [place] [address] [address] [place] [address] [facility] [phone] Social History Tobacco Use Types Packs/Day Years [...] do you attend buddhism or Never 2021 evangelical services? Do you [...]
--- OUTSIDE RECORDS SUMMARY | 2022-08-17 09:24 | XMS_ITS | Encounter Summary ---
:1985 Author Organization [facility] Address [address] [place] [address] Care Team Providers Name Role Phone Unavailable Primary Care Provider Unavailable Encounter Details Date Type Department Care Team Description 10/20/2018 Clinical Communication Department of Neurology Rui Godinez, in [facility] kandis Boss, M.P.H. [address] [place] [address] [address], [place] [address] Social History Tobacco Use Types Packs/Day [...] or relatives? How often do you attend christian or Never 2021 scientologist services? Do you belong to any clubs or No 11/08/2021 organizations such as christian groups, unions, fraternal or athletic groups, or [...] Sally Wallis L.P.N. - 10/21/2018 11:22 AM FIELD SALES TRAINER Contacted [facility]. Medication is correct but the issue is that they need a prior auth done on the weaver. It cost $2000.00 for a 30 day supply. D SALES TRAINER Telephone Encounter - Rui Godinez M.D., M.P.H. - 10/21/2018 9:41 AM FIELD SALES TRAINER It says lamictal with DAW1 D SALES TRAINER Telephone Encounter - Bianka Chakraborty - 10/20/2018 [...] Medication (if relevant): Lamictal 200 mg tablet D SALES TRAINER documented in this encounter Plan of Treatment Not on filedocumented as of this encounter Visit Diagnoses Not on filedocumented in this encounter
--- OUTSIDE RECORDS SUMMARY | 2022-08-17 09:24 | XMS_ITS | Encounter Summary ---
:1985 Author Organization [facility] Address [address] [place] [address] Care Team Providers Name Role Phone Unavailable Primary Care Provider Unavailable Reason for Visit Reason Onset Date Comments Rx Prior Authorization 10/22/2018 Lamictal Encounter Details Date Type Department Care Team Description 10/22/2018 Clinical Department of Angelica Wallis Prior Communication Neurology in Sally Elena, Authorization Lindsay Gee (Lamictal) [place] [address] [place] [address] [phone] Social History Tobacco Use Types Packs/Day Years [...] do you attend mormon or Never 2021 christianity services? Do you [...] Miscellaneous Notes Telephone Encounter - Sally Wallis L.PRonen. - 10/22/2018 4:12 PM CASH TELLER Patient states she has faxed the form to Dr. Godinez. She also provided the phone number that Dr. Godinez or a nurse needs to call. , department [facility]. Please advise Form has been completed and faxed to . TELLER documented in this encounter Plan of Treatment Not on filedocumented as of this encounter Visit Diagnoses Not on filedocumented in this encounter
--- OUTSIDE RECORDS SUMMARY | 2022-08-17 09:24 | XMS_ITS | Encounter Summary ---
:1985 Author Organization [facility] Address [address] [place] [address] Care Team Providers Name Role Phone Unavailable Primary Care Provider Unavailable Encounter Details Date Type Department Care Team Description 10/06/2018 Clinical Communication Department of Neurology Rui Godinez, in [facility] kandis Boss, M.P.H. [address] [place] [address] [address] [place] [address] Social History Tobacco Use Types Packs/Day [...] you attend roman catholic or Never 2021 yazidi services? Do you [...] Sally Wallis L.P.N. - 10/08/2018 10:24 AM MAINTENANCE AND CUSTODIAN SUPERVISOR Patient advised to check with [facility] to send neurology records and to fax over the formulary exception form. Patient in agreement with this plan. TENANCE AND CUSTODIAN SUPERVISOR Telephone Encounter - Diana Candelario - 10/06/2018 [...] Name of Medication (if relevant): Lamictal pills TENANCE AND CUSTODIAN SUPERVISOR documented in this encounter Plan of Treatment Not on filedocumented as of this encounter Visit Diagnoses Not on filedocumented in this encounter
--- OUTSIDE RECORDS SUMMARY | 2022-08-17 09:24 | XMS_ITS | Encounter Summary ---
:1985 Author Organization [facility] Address [address] [place] [address] Care Team Providers Name Role Phone Unavailable Primary Care Provider Unavailable Encounter Details Date Type Department Care Team Description 10/20/2018 Documentation Department of Neurology in Asif Mendiola [place], [place] L.P.N. [address] [place] [address] [place], [place] [phone] Social History Tobacco Use Types Packs/Day Years [...] or relatives? How often do you attend islam or Never 2021 hoahaoism services? Do you belong to any clubs or No 11/08/2021 organizations such as islam groups, unions, fraternal or athletic groups, or [...] 1:23 PM CST See next phone message. HOLOGICAL TESTS SALES AGENT documented in this encounter Plan of Treatment Not on filedocumented as of this encounter Visit Diagnoses Not on filedocumented in this encounter
--- OUTSIDE RECORDS SUMMARY | 2022-08-17 09:24 | XMS_ITS | Encounter Summary ---
:1985 Author Organization [facility] Address [address] [place] [address] Care Team Providers Name Role Phone Unavailable Primary Care Provider Unavailable Encounter Details Date Type Department Care Team Description 10/20/2018 Orders Only [facility] - Isma Hoyos M.D. [address], [facility] [address] [place] [phone] (Wo rk) Social History Tobacco [...] do you attend buddhist or Never 2021 mu-ism services? Do you [...]
--- OUTSIDE RECORDS SUMMARY | 2022-08-17 09:24 | XMS_ITS | Encounter Summary ---
:1985 Author Organization [facility] Address [address] [place] [address] Care Team Providers Name Role Phone Unavailable Primary Care Provider Unavailable Encounter Details Date Type Department Care Team Description 10/13/2018 Clinical Communication Department of Neurology Rui Godinez, in [facility] kandis Boss, M.P.H. [address] [place] [address] [address] [place] [phone] Social History Tobacco Use Types Packs/Day [...] or relatives? How often do you attend restorationist or Never 2021 restoration services? Do you belong to any clubs or No 11/08/2021 organizations such as restorationist groups, unions, fraternal or athletic groups, or [...] or slept in a detention (including now)? Sex Assigned at Date Recorded [...] for LamoTRIgine was faxed to [facility] in [place] Information: patient/caller able to repeat back in their own words The following references were used: provider Herbert NICIAN TRAINEE Telephone Encounter - Sally Wallis L.P.N. - 10/13/2018 8:38 AM TECHNICIAN TRAINEE Contacted patient. Stated that she had the form faxed to our clinic that needs to be filled out. Needs brand name seizure medication. Has tried generic medication and had seizures while on them. Is aware that will be back in office on SatOctober 15. NICIAN TRAINEE Telephone Encounter - Racquel Jimenez - 10/13/2018 7:26 AM CST Reason for Communication: forms Current Can Nursing/Provider leave a detailed message: yes Did the patient refuse triage through Nurse line? (for symptom based concerns) Action Needed: Patient is needing to speak with dr. Godinez's nurse about some forms she will be needing to fax over. Patient has not been seen by dr. Godniez here but has seen him in [place]. Form is for a medication her insurance is charging her full weaver for because it is not the name brand. She is and needing this medication and needing Dr. Godinez to fill this out for her. Name of Medication (if relevant): NICIAN TRAINEE documented in this encounter Plan of Treatment Not on filedocumented as of this encounter Visit Diagnoses Not on filedocumented in this encounter
--- OUTSIDE RECORDS SUMMARY | 2022-08-17 09:24 | XMS_ITS | Encounter Summary ---
:1985 Author Organization [facility] Address [address] [place] [address] Care Team Providers Name Role Phone Unavailable Primary Care Provider Unavailable Encounter Details Date Type Department Care Team Description 11/14/2018 Clinical Communication Department of Neurology Rui Godinez, in [facility] kandis Boss, M.P.H. [address] [place] [address] [address] [phone] Social History Tobacco Use Types Packs/Day [...] you attend oriental orthodox or Never 2021 mormonism services? Do you [...] Dena Mendiola L.P.N. - 11/18/2018 11:02 AM SLIDE MACHINE TENDER See next message. E MACHINE TENDER Telephone Encounter - Dena Mendiola L.P.N. - 11/17/2018 10:12 AM SLIDE MACHINE TENDER Left message to call back. E MACHINE TENDER Telephone Encounter - Golden Arreola - 11/14/2018 [...] Needed: Name of Medication (if relevant): Acetazolamide E MACHINE TENDER documented in this encounter Plan of Treatment Not on filedocumented as of this encounter Visit Diagnoses Not on filedocumented in this encounter
--- OUTSIDE RECORDS SUMMARY | 2022-08-17 09:24 | XMS_ITS | Encounter Summary ---
:1985 Author Organization [facility] Address [address] [place] [address] Care Team Providers Name Role Phone Unavailable Primary Care Provider Unavailable Encounter Details Date Type Department Care Team Description 10/20/2018 Clinical Communication Department of Dena Mendiola Neurology in [place], [place] [address] [place] [phone] Social History Tobacco Use Types Packs/Day [...] do you attend jain or Never 2021 restorationism services? Do you [...] Dena Mendiola L.P.N. - 10/27/2018 1:23 PM SKEIN WINDING OPERATOR Received forms back from [facility] needing additional information. Dr. Godinez completes these and they are faxed back. N WINDING OPERATOR Telephone Encounter - Dean Mendiola L.P.N. - 10/22/2018 3:42 PM SKEIN WINDING OPERATOR Forms are faxed to Neurology in [place] for Dr. Godinez to fill out. N WINDING OPERATOR Telephone Encounter - Dena Mendiola L.P.N. - 10/22/2018 3:37 PM SKEIN WINDING OPERATOR I was given the fax number to fax the forms to. Patient is covered under [facility]. N WINDING OPERATOR Telephone Encounter - Dena Mendiola L.P.N. - 10/22/2018 3:33 PM SKEIN WINDING OPERATOR Prior Auth office unable to help because a physician signature is needed on the forms. N WINDING OPERATOR Telephone Encounter - Dena Mendiola L.P.N. - 10/22/2018 2:31 PM SKEIN WINDING OPERATOR I spoke to the patient to see if she had a fax number. She was only given the phone number. I informed her because it is a prior authorization, I will have the prior authorization office call [employer]. I notified Clemente Alfredo who was working on this yesterday and faxed the forms to her. N WINDING OPERATOR Telephone Encounter - Sydney Kim - 10/22/2018 12:03 PM CST Patient states she has faxed the form to Dr. Godinez. She also provided the phone number that Dr. Godinez or a nurse needs to call. , department [employer]. Please advise N WINDING OPERATOR Telephone Encounter - Dena Mendiola L.P.N. - 10/22/2018 9:07 AM SKEIN WINDING OPERATOR I called Trinity to see that she got the message that the form was faxed. She indicated that she went to her HR because of the trouble of [facility] not seeing her in their data base. She said that her HR called [facility] and she was given new forms. The form that was faxed was the wrong form. She will call with a new fax number to send it to because there is no fax number on the form. She will fax the form to me today. N WINDING OPERATOR Telephone Encounter - Dena Mendiola L.P.N. - 10/21/2018 10:12 AM SKEIN WINDING OPERATOR Left message to the patient that the form was faxed. N WINDING OPERATOR Telephone Encounter - Dena Mendiola L.P.N. - 10/21/2018 9:49 AM SKEIN WINDING OPERATOR Form is faxed to [facility] of [place], customer service. , phone Address [address] [address] [place] [address] N WINDING OPERATOR Telephone Encounter - Dena Mendiola L.P.N. - 10/21/2018 8:17 AM SKEIN WINDING OPERATOR Phone call received yesterday from Prior Auth office Juni Joseaman. She is working on the prior [employer] for the [facility] and wanting to do a conference call to the insurance. Parties myself , Juni and [facility] to get the copay covered. Was on the phone for 45 min with [facility] and they were unable to help because [...] are here and on Dr. Godinez desk. N WINDING OPERATOR Telephone Encounter - Dena Mendiola L.P.N. - 10/20/2018 4:47 PM SKEIN WINDING OPERATOR Member service number should be [phone]. Patient to fax forms tomorrow. N WINDING OPERATOR Telephone Encounter - Dena Mendiola L.P.N. - 10/20/2018 2:20 PM SKEIN WINDING OPERATOR Patient calls and says that her insurance has changed to [employer], , Group [phone]. Phone number member services N WINDING OPERATOR Telephone Encounter - Dena Mendiola L.P.N. - 10/20/2018 2:09 PM SKEIN WINDING OPERATOR [employer] pool Please start a prior auth for the patients Lamictal that Dr. Godinez prescribed today. She needs brandname as she had many seizures when she tried the generic.Please do today as the patient is out of medication. Thank you, Thank you N WINDING OPERATOR documented in this encounter Plan of Treatment Not on filedocumented as of this encounter Visit Diagnoses Not on filedocumented in this encounter
--- OUTSIDE RECORDS SUMMARY | 2022-08-17 09:24 | XMS_ITS | Encounter Summary ---
:1985 Author Organization [facility] Address [address] [place] [address] Care Team Providers Name Role Phone Unavailable Primary Care Provider Unavailable Encounter Details Date Type Department Care Team Description 10/22/2018 Clinical Communication Department of Internal Kassy Godinez, Medicine in Karyn Bose, M.P. H. [place] [address] [place] [phone] Social History Tobacco Use Types Packs/Day Years [...] or relatives? How often do you attend restoration or Never 2021 voodoo services? Do you belong to any clubs or No 11/08/2021 organizations such as restoration groups, unions, fraternal or athletic groups, or [...]
--- OUTSIDE RECORDS SUMMARY | 2022-08-17 09:24 | XMS_ITS | Encounter Summary ---
:1985 Author Organization [facility] Address [address] [place] [address] Care Team Providers Name Role Phone Unavailable Primary Care Provider Unavailable Encounter Details Date Type Department Care Team Description 10/20/2018 Orders Only Department of Rui Godinez, [place] on Related Neurology in Karyn Bose, M.P .H. 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 Do you [...]
--- OUTSIDE RECORDS SUMMARY | 2022-08-17 09:24 | XMS_ITS | Encounter Summary ---
:1985 Author Organization [facility] Address [address] [place] [address] Care Team Providers Name Role Phone Unavailable Primary Care Provider Unavailable Encounter Details Date Type Department Care Team Description 10/20/2018 Clinical Communication Department of Dena Mendiola Neurology in [place], [place] [address] [place] [phone] Social History Tobacco Use [...] do you attend uatsdin or Never 2021 catholic services? Do you belong to any clubs [...] Dena Mendiola L.P.N. - 10/20/2018 3:02 PM WEAVER NARROW FABRICS Patient is notified. [facility] office also notified to start PA for Lamictal. ER NARROW FABRICS Telephone Encounter - Rui Godinez M.D., M.P.H. - 10/20/2018 1:54 PM WEAVER NARROW FABRICS I called and talked to the pharmacy ([facility] [place]) and refilled her Lamictal at 400 mg BID as she is currently taking. My last note (in [place]) shows that she was prescribed 300 mg BID so someone else must have increased the dose. ER NARROW FABRICS Telephone Encounter - Dena Mendiola L.P.N. - 10/20/2018 1:43 PM WEAVER NARROW FABRICS Patient calling and has seen Dr. Godinez in [place]. She is calling about her the prescription [...] taking 400 mg twice daily. She uses [facility] in [place]. Scanned notes from [place] are in the EMR from September. She would like a new rx sent to the pharmacy and to have CIERA 1. Please advise which dose she should be on. ER NARROW FABRICS documented in this encounter Plan of Treatment Not on filedocumented as of this encounter Visit Diagnoses Not on filedocumented in this encounter
--- OUTSIDE RECORDS SUMMARY | 2022-08-17 09:24 | XMS_ITS | Encounter Summary ---
:1985 Author Organization [facility] Address [address] [place] [address] Care Team Providers Name Role Phone Unavailable Primary Care Provider Unavailable Reason for Visit Reason Comments Med Refill Encounter Details Date Type Department Care Team Description 10/20/2018 Refill Department of Neurology in Rui Godinez M.D., Med Refill [place], [place] M.P.H. [address] [facility] [address], [place] [address] [place] [address] (Wo rk) Social History Tobacco [...] do you attend rastafarian or Never 2021 yarsani services? Do you [...]
--- OUTSIDE RECORDS SUMMARY | 2022-08-17 09:24 | XMS_ITS | Encounter Summary ---
:1985 Author Organization [facility] Address [address] [place] [address] Care Team Providers Name Role Phone Unavailable Primary Care Provider Unavailable Encounter Details Date Type Department Care Team Description 10/17/2018 Orders Only Department of Neurology in Rui Godinez M.D., [place], [place] M.P.H. [address] [place] [address] [address] [place] [address] [place], [place] [phone] (Wo rk) Social History Tobacco Use [...] or relatives? How often do you attend anglican or Never 2021 oriental orthodox services? Do you belong to any clubs or No 11/08/2021 organizations such as anglican groups, unions, fraternal or athletic groups, or [...]
[2022-08-17 14:44] LABS: Glucose 1 Hour Gest 141 mg/dl (70-180)
[2022-08-21 04:48] LABS: Keppra (Levetiracetam) 17 ug/mL (10-40); Lamotrigine 3.4 ug/mL (3.0-15.0)
[2022-08-21 11:45] LABS: Rapid Plasma Reagin (RPR) Non Reactive (Non Reactive)
== END 2022-08-17 09:11 | disposition home or self-care (01) ==
PROVIDERS: PCP Family Medicine; Visit Provider Obstetrics & Gynecology
DX: O26.893 Other specified pregnancy related conditions, third trimester (principal); G40.909 Epilepsy, unspecified, not intractable, without status epilepticus; Z3A.28 28 weeks gestation of pregnancy
CPT/HCPCS: 80175; 80177; 82950; 86592

== ENCOUNTER 2022-08-23 08:22 | Outpatient (CLI) | payer BC, SELFPAY ==
--- OUTSIDE RECORDS SUMMARY | 2022-08-23 08:24 | XMS_ITS | Encounter Summary ---
:1985 Author Organization [facility] Address [address] [place] [address]. [place] [address] Care Team Providers Name Role Phone [facility] Primary [facility] Provider [phone] Gia Martínez MD Unavailable [phone] Encounter Details Date Type Department Care Team Description 11/21/2021 Telephone [facility] Gia Martínez MD [address] [place] [address] [address] [place] [address] [place] [phone] Social History Tobacco Use Types Packs/Day Years Used Date Smoking Tobacco: Never Smokeless Tobacco: Never Alcohol Use Standard Drinks/Week Comments Not Currently 0 (1 standard drink = 0.6 oz pure alcoho l) occ Sex Assigned at Date Recorded Not on file COVID-19 Exposure Response Date Recorded In the last month, have you been in contact with No / Unsure 10/28/2021 8:34 AM CURATOR HERBARIUM someone who was confirmed or suspected to [...] AM CDT RN attempting to contact medical front desk specialist about this case. Liyah Loza RN [...] today to update her. 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 Can you help with the coding request? I don't know what they are talking about. Thanks, Gia Martínez MD TOR HERBARIUM Telephone Encounter - Liyah Loza RN - [...] Trinity can be updated. Liyah Loza RN TOR HERBARIUM documented in this encounter Plan of Treatment Not on filedocumented as of this encounter Visit Diagnoses Not on filedocumented in this encounter Care Teams Gameroom Technician Relationship Specialty Start Date End Date [facility] PCP - General 09/05/17 [address] [place], [place] [phone] Gia Martínez MD Assigned OBGYN Provider 10/29/[address] [facility] [address] [place] [address] documented as of this encounter
--- OUTSIDE RECORDS SUMMARY | 2022-08-23 08:24 | XMS_ITS | Clinical Summary ---
:1985 Author Organization [facility] [place] [address] Care Team Providers Name Role Phone Juan [...] Type Group BLUE CROSS BLUE CROSS OF [id number] 2018-Present [address] [address] [place] [address] Care Teams Interactive Media Designer Relationship Specialty Start Date End Date Juan Alberto Jackson MD PCP - General 09/20/08
--- OUTSIDE RECORDS SUMMARY | 2022-08-23 08:24 | XMS_ITS | Clinical Summary ---
:1985 Author Organization [facility] Address [address] [place] [address]. [place] [address] Care Team Providers Name Role Phone [facility] Primary Care Provider [phone] Gia Martínez MD Unavailable [phone] Allergies No known active allergies Medications [...] Comments Blood Pressure 107/66 10/29/2021 11:27 AM BIOMEDICAL EQUIPMENT TECH Pulse 57 06/16/2013 7:52 AM CDT Temperature 37 ??C (98.6 ??F) 10/29/2021 6:23 AM BIOMEDICAL EQUIPMENT TECH Respiratory Rate 99 10/29/2021 8:38 AM BIOMEDICAL EQUIPMENT TECH Oxygen Saturation 100% 10/29/2021 12:01 PM BIOMEDICAL EQUIPMENT TECH Inhaled Oxygen Concentration - - Weight 79.4 kg (175 lb) 10/28/2021 9:00 AM BIOMEDICAL EQUIPMENT TECH Height 165.1 cm (5' 5) 10/28/2021 9:00 AM BIOMEDICAL EQUIPMENT TECH Body Mass Index 29.12 10/28/2021 9:00 AM BIOMEDICAL EQUIPMENT TECH Plan of Treatment Health Maintenance Due Date [...] ss Type Group BCBS BCBS OUT OF [id number] 2021-Present [phone] [address] [address] [place] [address] Advance Directives For more information, please contact: [phone] Latest Code Status on File Code Status Date Activated Date Inactivated Comments Full Code 10/28/2021 6:54 PM 10/29/2021 4:58 PM All basic an d advanced life-sustaining interventions are performed as pepito ropriate Question Answer Comments Code status determined by: Discussion with patient/ legal de cision maker Care Teams Rail Doweling Machine Operator Relationship Specialty Start Date End Date [facility] Medical PCP - General 09/05/17 [address] [place], [place] [phone] Gia Martínez MD Assigned OBGYN Provider 10/29/21 [address] [facility] [address] [place] [address]
--- OUTSIDE RECORDS SUMMARY | 2022-08-23 08:24 | XMS_ITS | Encounter Summary ---
:1985 Author Organization [facility] Address [address] [place] [address] Care Team Providers Name Role [facility] Primary Care Provider [phone] Gia Martínez MD Unavailable [phone] Reason for Visit Reason Onset Date Comments Social Work Services 11/06/2021 Encounter Details Date Type Department Care Team Description 11/06/2021 Telephone [facility] CASE MANAGEMENT [facility] Social Work Services [phone] Mei Sanchez, [facility] Social History Tobacco Use Types Packs/Day Years Used Date Smoking Tobacco: Never Smokeless Tobacco: Never Alcohol Use Standard Drinks/Week Comments Not Currently 0 (1 standard drink = 0.6 oz pure alcoho l) occ Sex Assigned at Date Recorded Not on file COVID-19 Exposure Response Date Recorded In the last month, have you been in contact with No / Unsure 10/28/2021 8:34 AM MARINE DRILLER someone who was confirmed or suspected to have Coronavirus / COVID-19? documented as of this encounter Miscellaneous Notes Telephone Encounter - Mei Rodriguez, SLUBBER MACHINE OPERATOR - 11/06/2021 9:21 AM MARINE DRILLER Received email from hospital security department with notification that fetus' body is still in the morgue. Security contacted [employer] [place] and they report they have not been able to reach patient to make the cremation arrangements and, therefore, they have not come to the hospital for removal of the body. Phone call to patient this morning. No answer. Message left with request that Trinity call me backas soon as possible. NE DRILLER documented in this encounter Plan of Treatment Not on filedocumented as of this encounter Visit Diagnoses Not on filedocumented in this encounter Care Teams Internal Controls Consultant Relationship Specialty Start Date End Date [facility] PCP - General 09/05/17 [address] [place], [place] [phone] Gia Martínez MD Assigned OBGYN Provider 10/29/[address] [facility] [address] [place], [place] [phone] documented as of this encounter
--- OUTSIDE RECORDS SUMMARY | 2022-08-23 08:25 | XMS_ITS | Encounter Summary ---
:1985 Author Organization [facility] Address [address] [place] [address]. [place] [address] Care Team Providers Name Role Phone [facility] Primary Care Provider [phone] Encounter Details Date Type Department Care Team Description 10/27/2021 Telephone [facility] Mauricio [facility] MD Karina [address] [place] [address] [place] [address] [address] [place] [address] [place] [phone] Social History Tobacco Use Types Packs/Day Years Used Date Smoking Tobacco: Never Alcohol Use Standard Drinks/Week Comments Yes 0 (1 standard drink = 0.6 oz pure alcoho l) occ Sex Assigned at Date Recorded Not on file COVID-19 Exposure Response Date Recorded In the last month, have you been in contact with No / Unsure 10/28/2021 8:34 AM EYE PHYSICIAN someone who was confirmed or suspected [...] things worked out today. Amelia Smith RN PHYSICIAN Telephone Encounter - Gia Martínez MD - 10/27/2021 10:58 AM EYE PHYSICIAN Trinity Ramirez is a 36 year old at 21w2d who was previously getting care in [facility] recently found to have multiple severe anomalies. She is scheduled for induction termination tomorrow 10/28. Can you call the hospital social media editor who works on labor and delivery to make sure that they contact her today? (if you call L&D they have the contact info). The patient wants tomake cremation arrangements for remains today before delivery if possible. I called the director of rehabilitation social media editor at the end of the day yesterday and she said she'd pass it on but I want to make sureto close the loop and confirm that the social workers at the hospital know about her. Thanks, Gia Martínez MD PHYSICIAN documented in this encounter Plan of Treatment Not on filedocumented as of this encounter Visit Diagnoses Not on filedocumented in this encounter Care Teams Superintendent Storage Area Relationship Specialty Start Date End Date [facility] Medical PCP - General 09/05/17 [address] [place], [place] [phone] documented as of this encounter
--- OUTSIDE RECORDS SUMMARY | 2022-08-23 08:25 | XMS_ITS | Encounter Summary ---
:1985 Author Organization [facility] Address [address] [place] [address]. [place] [address] Care Team Providers Name Role Phone [facility] Primary Care Provider [phone] Encounter Details Date Type Department Care Team [...] with No / Unsure 10/28/2021 8:34 AM SAFETY SPECIALIST someone who was confirmed or suspected to have Coronavirus / COVID-19? documented as of this encounter Plan of Treatment Not on filedocumented as of this encounter Visit Diagnoses Not on filedocumented in this encounter Care Teams Record Label Internship Relationship Specialty Start Date End Date [facility] PCP - General 09/05/17 [address] [place], [place] [phone] documented as of this encounter
--- OUTSIDE RECORDS SUMMARY | 2022-08-23 08:25 | XMS_ITS | Encounter Summary ---
:1985 Author Organization [place] Address [address] [place] [address] Care Team Providers Name Role Phone Unavailable Primary Care Provider Unavailable Reason for Visit Reason Comments Eye Problem Dizziness Encounter Details Date Type Department Care Team Description 06/16/2013 Emergency [facility] Monroe Duncan zeana weakness (Primary Dx); [facility] Emergency Dep t MD Minor Headache [address] [facility] EMERGENCY PHYSICIANS [facility] [phone] [address] [employer] [phone] [facility] [address] [place] [address] (Wo rk) Social History Tobacco [...] Anderson in 3-5 days if not improving. [place] should call you if seizure medication levels [...] as directed by your healthcare provider ?? [phone] [place] [address]. All rights reserved. This information is not [...] her Keppra, so she was seen at [facility] where they edinson her Keppra and told [...] History: Seizures Genital herpes Past Surgical History: [place] teeth removed Tonsillectomy Family/Social History: The patient [...] Course ECG @ 8:10 Rate 57 bpm. NM interval 146 ms. QRS duration 80 ms. [...] work. The patient was placed on continuous radiation monitor and pulse oximetry. IV was inserted [...] for discharge to home. We will contact [facility] concerning her seizure drug levels. I have a low suspicion for cardiac etiology or significant cranial etiology. Patient and mother are comfortable with this plan. Pt improved with interventions in ER, labs unremarkable including carbon monoxide, ecg with no ischemia or malignant arrhythmia. [facility] stated labs still pending. Pt updated on [...] LAB - BLOOD ORDERABLES Performing Organization Address City/[facility]/ZIP [facility] Phon e Number [place] [address] [place], [place] [phone] [place] [address] LAB HCG qualitative urine (06/16/2013 8:34 AM CDT) P athologist Signature HCG Qual Urine Negative NEG [facility] LAB Specimen Anatomical Collection Method Collection Time Receive d Time (Source) Location / / Volume Laterality Urine specimen 06/16/2013 8:34 AM 013 8:38 (specimen) CDT AM CDT Monroe Duncan MD LAB - URINE ORDERABLES Performing Organization Address City/[facility] Phon e Number [place] [address] [place], [place] [address] [phone] [place] [address] LAB (ABNORMAL) UA with Microscopic (06/16/2013 8:34 AM CDT) Patholo gist Method Time Signature Color Urine Yellow [facility] LAB Appearance Urine Slightly [place] Cloudy [facility] LAB Glucose Urine Negative NEG mg/dL [facility] LAB Bilirubin Urine Negative NEG [facility] LAB Ketones Urine Negative NEG mg/dL [facility] LAB Specific [place] 1.019 1.003 - [place] Urine 1.035 [facility] Blood Urine Small (A) NEG [facility] LAB pH Urine 6.0 5.0 - 7.0 [place] pH [facility] Protein Albumin 10 (A) NEG mg/dL [facility] LAB Urobilinogen Normal 0.0 - 2.0 [place] mg/dL mg/dL [facility] Nitrite Urine Negative NEG [facility] LAB Leukocyte Small (A) NEG [place] Esterase Urine [facility] Source Midstream [facility] LAB WBC Urine 2 0 - 2 [place] /HPF [facility] RBC Urine 1 0 - 2 [place] /[facility] Squamous 8 (H) 0 - 1 [place] Epithelial /HPF /[facility] LAB Transitional Epi <1 0 - 1 [facility] LAB Mucous Urine Present (A) NEG /LPF [facility] LAB Specimen Anatomical Collection Method Collection Time Receive d Time (Source) Location / / Volume Laterality Urine specimen 06/16/2013 8:34 AM 013 8:38 (specimen) CDT AM CDT Monroe Duncan MD LAB - URINE ORDERABLES Performing Organization Address City/[facility]/ZIP Code Phon e Number [facility] [address] [place], [place] [address] [facility] LAB (ABNORMAL) Basic metabolic panel (BMP) (06/16/2013 8:12 AM CDT) Analysis Performed At Patho logist Time Signature Sodium 145 (H) 133 - 144 [place] mmol/L [facility] Potassium 3.7 3.4 - 5.3 [place] mmol/L [facility] Chloride 110 (H) 94 - 109 [place] mmol/L [facility] Carbon Dioxide 21 20 - 32 [place] mmol/L [facility] Anion Gap 14 6 - 17 [place] mmol/L [facility] Glucose 85 60 - 99 [place] mg/dL [facility] Urea Nitrogen 12 5 - 24 [place] mg/dL [facility] Creatinine 1.10 (H) 0.52 [facility] 1.04 mg/dL [facility] GFR Estimate 61 >60 [place] mL/min/1.[address] LAB GFR Estimate If 73 >60 [place] Black mL/min/1.[address] [place] [address] LAB Calcium 9.1 8.5 - 10.4 [place] mg/dL [facility] LAB Specimen Anatomical Collection Method Collection Time Receive d Time (Source) Location / / Volume Laterality Blood specimen 06/16/2013 8:12 AM 013 8:15 (specimen) CDT AM CDT Monroe Duncan MD LAB - BLOOD ORDERABLES Performing Organization Address City/[facility]/ZIP [facility] Phon e Number [facility] [address] [place], [place] [address] [facility] CBC (platelets, no diff) (06/16/2013 8:12 AM CDT) P athologist Signature WBC 5.2 4.0 - 11.0 [place] 10e9/L [facility] RBC Count 4.27 3.8 - 5.2 [place] 10e12/L [facility] Hemoglobin 12.7 11.7 - [place] 15.7 g/dL [facility] Hematocrit 39.6 35.0 - [place] 47.0 % [facility] MCV 93 78 - 100 [place] fl [facility] MCH 29.7 26.5 - [place] 33.0 pg [facility] MCHC 32.1 31.5 - [place] 36.5 g/dL [facility] RDW 13.7 10.0 - [place] 15.0 % [facility] Platelet Count 272 150 - 450 [address] [facility] Specimen Anatomical Collection Method Collection Time Receive d Time (Source) Location / / Volume Laterality Blood specimen 06/16/2013 8:12 AM 013 8:15 (specimen) CDT AM CDT Monroe Duncan MD LAB - BLOOD ORDERABLES Performing Organization Address City/State/ZIP Code Phon e Number [address] [facility] EKG 12 lead (06/16/2013 8:10 [...]
--- OUTSIDE RECORDS SUMMARY | 2022-08-23 08:25 | XMS_ITS | Encounter Summary ---
:1985 Author Organization [place] Address [address] [place] [address]. [place] [address] Care Team Providers Name Role Phone [facility] Primary Care Provider [phone] Encounter Details Date Type Department Care Team Description 10/23/2021 Medical Correspondence [facility] Scan, MATERNAL Health Info Mgmt Non-Provider MEDICINE CE NTER [facility] Srvcs PROVIDER SERVICE [address] [place] [address] [place] [address] [facility] [phone] AND CLINICS Social History Tobacco Use Types [...] on filedocumented in this encounter Care Teams Cyber Intelligence Analyst Relationship Specialty Start Date End Date [facility] Medical PCP - General 09/05/17 [address] [address] [place], [place] [phone] documented as of this encounter
--- OUTSIDE RECORDS SUMMARY | 2022-08-23 08:25 | XMS_ITS | Encounter Summary ---
:1985 Author Organization [place] Address [address] [place] [address]. [place] [address] Care Team Providers Name Role Phone [facility] Primary Care Provider [phone] Encounter Details Date Type Department Care Team [...] with No / Unsure 10/26/2021 1:52 PM GASTROENTEROLOGY NURSE someone who was confirmed or suspected to have Coronavirus / COVID-19? documented as of this encounter Plan of Treatment Not on filedocumented as of this encounter Visit Diagnoses Not on filedocumented in this encounter Care Teams Liner Assembler Relationship Specialty Start Date End Date [facility] PCP - General 09/05/17 [address] [address]ao [place], [place] [phone] documented as of this encounter
--- OUTSIDE RECORDS SUMMARY | 2022-08-23 08:25 | XMS_ITS | Encounter Summary ---
:1985 Author Organization [place] Address [facility] [place] [address] Care Team Providers Name Role Phone [facility] Primary Care Provider [phone] Reason for Visit Reason Comments Ultrasound L2 - multiple abnormalities from outside ultrasound Encounter Details Date Type Department Care Team Description 10/26/2021 Office Visit [facility], complicated Maternal Shirley A by congenital [facility] heart disea se, single [facility] or unspecified fetus [address] [facility] (Primary Dx) [place], [place] [address] [place], [place] [phone] Social History Tobacco Use Types Packs/Day Years Used Date Smoking Tobacco: Never Alcohol Use Standard Drinks/Week Comments Yes 0 (1 standard drink = 0.6 oz pure alcoho l) occ Sex Assigned at Date Recorded Not on file COVID-19 Exposure Response Date Recorded In the last month, have you been in contact with No / Unsure 10/26/2021 1:52 PM VACUUM DRIER TENDER someone who was confirmed or suspected to have Coronavirus / COVID-19? documented as of this encounter Progress Notes Ce Andersen MD - 10/26/2021 2:00 PM CST Please see the imaging tab for details of the ultrasound performed today. Ce Andersen MD Specialist in Maternal- Medicine [facility] DRIER TENDER documented in this encounter Plan of Treatment Not on filedocumented as of this encounter Visit Diagnoses Diagnosis complicated by congenita l heart disease, single or unspecified fetus - Primary documented in this encounter Care Teams Agricultural Produce Packer Relationship Specialty Start Date End Date [facility] PCP - General 09/05/17 [address] [address]ao [place], [place] [phone] documented as of this encounter
--- OUTSIDE RECORDS SUMMARY | 2022-08-23 08:25 | XMS_ITS | Encounter Summary ---
:1985 Author Organization [place] Address [facility] [place] [address] Care Team Providers Name Role Phone [facility] Primary Care Provider [phone] Reason for Visit Reason Onset Date Comments Clinic Care Coordination - Initial 10/24/2021 Encounter Details Date Type Department Care Team Description 10/24/2021 Telephone [facility] Larissa Hernandez, Clinic Care Coordination Maternal Medicine - [facility] [address] [address] [facility] [address] [place] [phone] Social History Tobacco Use Types Packs/Day Years [...] Trinity becomes our patient. Larissa Hernandez MS, [facility] Licensed Genetic Counselor [facility] Maternal Medicine [email or web address] [phone] CLEANER Telephone Encounter - Larissa Hernandez GC - 10/24/2021 1:53 PM CST October 24, 2021 I reached out to Trinity to discuss a referral we received from her OB provider. 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 These included a heart defect, multiple choroid plexus cysts, lagging growth, possibly abnormal limbs, and other features. Trinity's OB provider edinson [id number] yesterday. Given Trinity's gestational age, we reviewed [...] Trinity does not feel that coming to [facility] and getting more imaging is going to change the course of her at this time, and she does not wish to proceed with amniocentesis. I strongly encouraged Trinity to reach back out to her OB provider to coordinate next steps. Larissa Hernandez MS, [facility] Licensed Genetic Counselor [facility] Maternal Medicine [email or web address] [phone] CLEANER documented in this encounter Plan of Treatment Not on filedocumented as of this encounter Visit Diagnoses Not on filedocumented in this encounter Care Teams Humidifier Maintenance Worker Relationship Specialty Start Date End Date [facility] PCP - General 09/05/17 [address] Geoff Yao [place], [place] [phone] documented as of this encounter
--- OUTSIDE RECORDS SUMMARY | 2022-08-23 08:25 | XMS_ITS | Encounter Summary ---
:1985 Author Organization [place] Address [address] [place] [address]. 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 Toxic: ??Not well Establ ished Pharmacokinetics of levetiracetam are af fected by renal function. Adverse effects may include so mnolence, weakness, headache and vomiting. Performed by [employer], [address] [place] [address],[place] [id number] [email or web address], Francisco Rubio MD, Lab. Director Specimen Anatomical Collection Method Collection Time Receive d Time (Source) Location / / Volume Laterality Blood specimen 01/16/2018 7:25 AM 018 7:31 (specimen) CDT AM CDT Eli Barnhart MD LAB - BLOOD ORDERABLES Performing Organization Address City/[facility]/ZIP Code Phon e Number M [facility] [address] [place], [place] [address] [facility] [address] [place], [place] [address], [facility] [phone] Lamotrigine Level (01/16/2018 7:25 AM CDT) athologist Signature Lamotrigine 4.8 2.5 - 15.0 01/17/2018 [place] Level ug/mL 1:17 AM CDT [facility] Comment: (Note) INTERPRETIVE INFORMATION: ??Lamotrigine Therapeutic Range: ??2.5-15.0 ug/mL ? Toxic: ??Not well establ ished Pharmacokinetics varies widely, particul leon with co-medications and/or compromised renal function. ??Adverse effects may include dizziness, somnolenc e, nausea and vomiting. Performed by [employer], [address] [place] [id number] [email or web address], Francisco Rubio MD, Lab. Director Specimen Anatomical Collection Method Collection Time Receive d Time (Source) Location / / Volume Laterality Blood specimen 01/16/2018 7:25 AM 018 7:31 (specimen) CDT AM CDT Eli Barnhart MD LAB - BLOOD ORDERABLES Performing Organization Address City/State/ZIP Code Phon e Number M [facility] [address] [place], [place] [address] [facility] [address] [place], [place] [address], [facility] [phone] documented in this encounter Visit Diagnoses Diagnosis Nonintractable generalized idiopathic ep ilepsy with status epilepticus (H) - Primary Post-traumatic headache Post-traumatic headache, unspecified Injury, head, sequela Benign essential tremor Essential and other specified forms of t remor documented in this encounter Care Teams Vacuum Cleaner Repairer Relationship Specialty Start Date End Date [facility] PCP - General 09/05/17 [address] [place] [address] Ernestina Shah MD MD Neurology 09/05/17 10/28/18 [facility] [address] [place] [id number] documented as of this encounter
--- OUTSIDE RECORDS SUMMARY | 2022-08-23 08:25 | XMS_ITS | Encounter Summary ---
:1985 Author Organization [place] Address [address] [place] [address] Care Team Providers Name Role Phone [facility] Primary Care Provider [phone] Ernestina Shah MD Unavailable Encounter Details Date Type Department Care Team Description 09/05/2017 Hospital Encounter [facility] Ernestina Shah Non intractable [facility] MD Adriana generalized idiopathic [address] [facility] OF epilepsy wi [address] status [address] NEUROLOGY epilepticus (H) [place], [place] [address] [address] [facility] ALEJANDRA [address] [place] [address] Social History Tobacco Use Types [...] 7:19 Nonintractable Resul ts for this AM DRAFTING ENGINEER generalized idiopathic proce dure are in epilepsy with status the res ults epilepticus (H) section. KEPPRA Routine 09/05/2017 7:19 Nonintractable Results fo r this (LEVETIRACETAM) LEVEL AM DRAFTING ENGINEER generalized idiopat hic procedure are in epilepsy with status the res ults epilepticus (H) section. COMPREHENSIVE Routine 09/05/2017 7:19 Nonintractable Results f or this METABOLIC PANEL AM DRAFTING ENGINEER generalized idiopathic pr ocedure are in epilepsy with status the res ults epilepticus (H) section. documented in this encounter Results (ABNORMAL) Keppra (Levetiracetam) Level (09/05/2017 7:19 AM DRAFTING ENGINEER) athologist Signature Keppra 2 (L) 12 - 46 09/06/2017 [facility] (Levetiracetam) ug/mL 3:44 AM [facility] Comment: (Note) INTERPRETIVE INFORMATION: Keppra (Leveti racetam) Therapeutic Range: ??12-46 ug/mL ? Toxic: ??Not well Establ ished Pharmacokinetics of levetiracetam are af fected by renal function. Adverse effects may include so mnolence, weakness, headache and vomiting. Performed by [employer], [address] [place] [address],[place] [id number] [email or web address], Francisco Rubio MD, Lab. Director Specimen Anatomical Collection Method Collection Time Receive d Time (Source) Location / / Volume Laterality Blood specimen 09/05/2017 7:19 AM 017 7:20 (specimen) DRAFTING ENGINEER AM DRAFTING ENGINEER Ernestina Shah MD LAB - BLOOD ORDERABLES Performing Organization Address [facility] Phon e Number [place] [facility] [address] [place], [place] [address] [facility] [address] [place] [id number] 7, [facility] [phone] Lamotrigine Level (09/05/2017 7:19 AM [facility]) athologist Signature Lamotrigine 5.1 2.5 - 15.0 09/06/2017 [facility] Level ug/mL 3:44 AM [facility] Comment: (Note) INTERPRETIVE INFORMATION: ??Lamotrigine Therapeutic Range: ??2.5-15.0 ug/mL ? Toxic: ??Not well establ ished Pharmacokinetics varies widely, particul leon with co-medications and/or compromised renal function. ??Adverse effects may include dizziness, somnolenc e, nausea and vomiting. Performed by [employer], [address] [place] [id number] [email or web address], Francisco Rubio MD, Lab. Director Specimen Anatomical Collection Method Collection Time Receive d Time (Source) Location / / Volume Laterality Blood specimen 09/05/2017 7:19 AM 017 7:20 (specimen) DRAFTING ENGINEER AM DRAFTING ENGINEER Ernestina Shah MD LAB - BLOOD ORDERABLES Performing Organization Address City/[facility]/ZIP Code Phon e Number [place] [facility] [address] [place], [place] [address] [facility] [address] [place] [address], [facility] [phone] (ABNORMAL) Comprehensive metabolic panel (BMP + Alb, Alk Phos, ALT, AST, Total. Bili, TP) (09/05/2017 7:19 AM [facility]) athologist Signature Sodium 141 133 - [...] MEDICAL CENTER GFR Estimate 66 >60 09/05/2017 [facility] mL/min/1.7 7:[address] Comment: Non GFR Calc GFR Estimate If 80 >60 mL/min/1.7m2 09/05/2017 7:44 A M [facility] Comment: GFR Calc Calcium 8.9 8.5 - 10.1 mg/dL 09/05/2017 7:44 AM [facility] Bilirubin Total 0.6 0.2 - 1.3 mg/dL 09/05/2017 7:44 AM [facility] Albumin 4.0 3.4 - 5.0 g/dL 09/05/2017 7:44 AM [facility] Protein Total 7.4 6.8 - 8.8 g/dL 09/05/2017 7:44 AM [facility] Alkaline Phosphatase 65 40 - 150 U/L 09/05/2017 7:44 AM [facility] ALT 16 0 - 50 U/L 09/05/2017 7:44 AM [facility] AST 13 0 - 45 U/L 09/05/2017 7:44 AM [facility] Specimen Anatomical Collection Method Collection Time Receive d Time (Source) Location / / Volume Laterality Blood specimen 09/05/2017 7:19 AM 017 7:20 (specimen) DRAFTING ENGINEER AM DRAFTING ENGINEER Ernestina Shah MD LAB - BLOOD ORDERABLES Performing Organization Address City/State/ZIP Code Phon e Number M [facility] [address] [place], [place] [address] [facility] [address] [place], [place] [address] 7[facility] [phone] documented in this encounter Visit Diagnoses Diagnosis 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
--- OUTSIDE RECORDS SUMMARY | 2022-08-23 08:25 | XMS_ITS | Encounter Summary ---
:1985 Author Organization [place] Address [address] [place] [address]. [place] [address] Care Team Providers Name Role Phone [facility] Primary Care Provider [phone] Ernestina Shah MD Unavailable Reason for Visit Reason Onset Date Comments Call To Schedule Appointment 09/01/2018 Encounter Details Date Type Department Care Team Description 09/01/2018 Telephone [facility] Louise Johnson Call T o Schedule Maternal Medicine Appo intment [facility] [address] [place] [address] [phone] Social History Tobacco Use Types Packs/Day Years Used Date Smoking Tobacco: Never Alcohol Use Standard Drinks/Week Comments Yes 0 (1 standard drink = 0.6 oz pure alcoho l) occ Sex Assigned at Date Recorded Not on file documented as of this encounter Miscellaneous Notes Telephone Encounter - Louise Johnson - 09/01/2018 11:42 AM CST [facility] received a referral for patient and [facility] wanted to see her for a FTS appointment. Patient is now past FTS dates and has not returned M calls. Orders for FTS removed. Will continue to try to schedule future appts. Louise Li Artificial Intelligence Specialist, [facility] CAL MANUFACTURING TECHNICIAN documented in this encounter Plan of Treatment Not on filedocumented as of this encounter Visit Diagnoses Not on filedocumented in this encounter Care Teams Pad Machine Feeder Relationship Specialty Start Date End Date [facility] PCP - General 09/05/17 [address] [facility] [place] [address] Enrestina Shah MD MD Neurology 09/05/17 10/28/18 [facility] OF NEUROLOGY [facility] [address] [address] documented as of this encounter
--- OUTSIDE RECORDS SUMMARY | 2022-08-23 08:25 | XMS_ITS | Encounter Summary ---
:1985 Author Organization [place] Address [address] [place] [address]. [place] [address] Care Team Providers Name Role Phone [facility] Primary Care Provider [phone] Reason for Visit Auth/Cert - Closed Specialty Diagnoses / Procedures Referred By Contact Refer red To Contact Surgery Diagnoses Chronic Tonsilitis Rh Periop Services Procedures TONSILLECTOMY [address] [place], [place] [address] Phone: Fax: Referral ID Status Reason Start Date Expiration Date Visits Requ ested Visits Authorized [id number] Closed 1 1 Encounter Details Date Type Department Care Team Description 02/18/2013 Anesthesia Event M [facility] Ronald Gonzáles MD [facility] ANESTHESIA NETWORK [address] [place], [place] [address] [facility] Jaylene Donaldson APRN FISHING VESSEL DECKHAND S [facility] [facility] [address] [place] [address] [address] [place] [address] Anesthesia Record Procedure Summary Procedure [...] benefits and alternatives discussed with: patient or sales representative livestock. History & Physical Review History and physical [...] Intra-op documented in this encounter Care Teams Automobile Drivers Relationship Specialty Start Date End Date [facility] PCP - General 02/04/13 06/15/13 documented as of this encounter
--- OUTSIDE RECORDS SUMMARY | 2022-08-23 08:25 | XMS_ITS | Encounter Summary ---
:1985 Author Organization [place] Address [address] [place] [address]. [place] [address] Care Team Providers Name Role Phone [facility] Care Provider [phone] Gia Martínez MD Unavailable [phone] Reason for Visit Auth/Cert Specialty Diagnoses / Procedures Referred By Contact Refer red To Contact lofter Diagnoses Encounter for induction of labor Maternity elizabeth: 03/07/22 IOL Encounter for induction of labor [place] [facility] [address] [place] [address] [place] [address] Phone: Referral ID Status Reason Start Date Expiration Date Visits Requ ested Visits Authorized [id number] 1 1 Encounter Details Date Type Department Care Team Description 10/28/2021 Anesthesia Event M [facility] Aysha Schmitz MD [address] [place] [id number] Birthplace Charley Oliveira MD [address] [place], [place] [phone] [address] [place] [phone] Anesthesia Record Procedure Summary Procedure Name Responsible [...] with No / Unsure 10/28/2021 8:34 AM CUTTING TOOL SHARPENER someone who was confirmed or suspected to [...] Past Surgical History: Procedure Laterality Date ??? OPERATORS TEACHER SURGERY 4th degree vaginal laceration ? [...] and realistic alternatives discussed. Questions answered and patient/access service representative(s) expressed understanding. 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 Patient requested epidural catheter for labor, completed on10/28/[address] Oliveira. Aysha Contreras MD ING TOOL SHARPENER Anesthesia Procedure Notes - Charley Oliveira MD - 10/28/2021 6:50 PM CUTTING TOOL SHARPENER Associated Order(s): Epidural Block Epidural catheter Procedure [...] saline NIDA at 5.5 cm. Needle Type: New Visionuhy needle Needle Gauge: 17. Needle Length (Inches): 3.5 Catheter: 19 G. Catheter threaded easily. # of attempts: 1 and # of redirects: 0 Assessment/Narrative Paresthesias: No. Test dose of 3 mL lidocaine 1.5% w/ 1:200,000 epinephrine at 17:01 CUTTING TOOL SHARPENER. Test dose negative, 3 minutes after injection, for signs of intravascular, subdural, or intrathecalinjection. Insertion/Infusion Method: LORT saline No aspiration negative for Heme or CSF via Epidural Catheter. Medication(s) Administered 0.125% bupivacaine (Epidural), 8 mL Medication Administration Time: 10/28/2021 5:03 PM ING TOOL SHARPENER documented in this encounter Plan of Treatment Not on filedocumented as of this encounter Procedures Procedure Name Priority Date/Time Associated Diagnosis Comme nts ANE EPIDURAL BLOCK Routine 10/28/2021 5:03 PM Res ults for this CUTTING TOOL SHARPENER procedure are i n the results section. documented in this encounter Results FV AN EPIDURAL DUMMY PERFORMABLE (10/28/2021 5:03 PM CUTTING TOOL SHARPENER) Narrative Charley Oliveira MD - 10/28/2021 5:03 PM CUTTING TOOL SHARPENER Charley Oliveira MD ? 10/28/2021 ??6:51 PM [...] lidocaine 1.5% w/ 1:200,000 epinephrine at 17:01 CUTTING TOOL SHARPENER. ? Test dose negative, 3 minutes aft er injection, for signs of intravascular, subdural, or intrathecal injection. ? Insertion/Infusion Method: LORT s asher ? No aspiration negative for Heme o r CSF via Epidural Catheter. Medication(s) Administered 0.125% bupivacaine (Epidural), 8 mL Medication Administration Time: 5:03 PM Charley Oliveira MD [facility] ANESTHESIA documented in this encounter Visit Diagnoses Not on filedocumented in this encounter Administered Medications Inactive Administered Medications - up to 3 most recent administrations Medication Order MAR Action Action Date Dose Rate Site bupivacaine (MARCAINE) 0.125 % Given 10/28/2021 5:03 PM CUTTING TOOL SHARPENER 8 mL s injection (diluted from stock concentration by or RIGHT OF WAY CLEARER) EPIDURAL, Starting on 10/28/21 at 1703, Anesthesia Intra-op documented in this encounter Care Teams Inside Account Executive Relationship Specialty Start Date End Date [facility] PCP - General 09/05/17 [address] [place], [place] [id number] Gia Martínez MD Assigned OBGYN Provider 10/29/[address] [place], [place] [address] documented as of this encounter
--- OUTSIDE RECORDS SUMMARY | 2022-08-23 08:25 | XMS_ITS | Encounter Summary ---
:1985 Author Organization [place] Address [address] [place] [address]. [place] [address] Care Team Providers Name Role Phone [facility] Primary Care Provider [phone] Encounter Details Date Type Department Care Team Description 10/24/2021 Medical Correspondence [facility] Scan, OBGYN REFERRAL Health Info [facility] Non-Provider [facility] Srvcs AND CLINICS [address] [place] [address] Social History Tobacco Use Types Packs/Day Years Used Date Smoking Tobacco: Never Alcohol Use Standard Drinks/Week Comments Yes 0 (1 standard drink = 0.6 oz pure alcoho l) occ Sex Assigned at Date Recorded Not on file documented as of this encounter Plan of Treatment Not on filedocumented as of this encounter Visit Diagnoses Not on filedocumented in this encounter Care Teams Inker Machine Relationship Specialty Start Date End Date [facility] Medical PCP - General 09/05/17 [address] [place] [address] documented as of this encounter
--- OUTSIDE RECORDS SUMMARY | 2022-08-23 08:25 | XMS_ITS | Encounter Summary ---
:1985 Author Organization [place] Address [address] [place] [address]. [place] [address] Care Team Providers Name Role Phone [facility] Primary Care Provider [phone] Reason for Referral Consultation (Routine: Next available opening) - Pending Review Specialty Diagnoses / Procedures Referred By Contact Refer red To Contact Diagnoses related condition, antepartum Shirley Pearson [facility] [address] [place] [address] Referral ID Status Reason Start Date Expiration Date Visits V isits Requested Authorized [id number] Pending 10/24/2021 10/24/2022 1 1 Review PERSON Encounter Details Date Type Department Care Team Description 10/24/2021 Transcribe Orders [facility] Alexy Barajas, Pregn misty related Maternal Shirley Becerra condition, Medicine Center [facility] antepartum (Primary [facility] Dx) [address] [facility] [address] [place] [address] [phone] Social History Tobacco Use Types Packs/Day Years [...] Primary documented in this encounter Care Teams Bench Repair Technician Relationship Specialty Start Date End Date [facility] PCP - General 09/05/17 [address] [place] [address] documented as of this encounter
--- OUTSIDE RECORDS SUMMARY | 2022-08-23 08:25 | XMS_ITS | Encounter Summary ---
:1985 Author Organization [place] Address [address] [place] [address]. [place] [address] Care Team Providers Name Role Phone [facility] Primary Care Provider Ernestina Shah MD Unavailable Gia Martínez MD Unavailable [phone] Reason for Referral - Closed Specialty Diagnoses / Procedures Referred By Contact Refer red To Contact Diagnoses related condition Alberta Beckford, [facility] [address] [place] [address] Fax: Referral ID Status Reason Start Date Expiration Date Visits Requ ested Visits Authorized [id number] Closed 07/24/2018 07/24/2019 1 1 Encounter Details Date Type Department Care Team Description 07/24/2018 [facility] Only [facility] Alberta Beckford, Pregna ncy related Maternal GEOPHYSICAL PROSPECTOR condition (Primary Dx) [facility] [address] [facility] [address] [facility] [address] [place] [address] [phone] Social History Tobacco Use Types Packs/Day Years [...] care documented in this encounter Care Teams Infant Caregiver Relationship Specialty Start Date End Date [facility] PCP - General 09/05/17 [address] [address] [place], [place] [phone] Ernestina Shah MD MD Neurology 09/05/17 10/28/18 [facility] CLIN[facility] OF NEUROLOGY [address] [facility] [address] [place], [place] [address] Gia Martínez MD Assigned OBGYN Provider 10/29/21 [address] [facility] [address] [place], [place] [address] documented as of this encounter
--- OUTSIDE RECORDS SUMMARY | 2022-08-23 08:25 | XMS_ITS | Encounter Summary ---
:1985 Author Organization [place] Address [address] [place] [address] Care Team Providers Name Role [facility] Primary Care Provider [phone] Reason for Visit Reason Onset Date Comments social work referral 10/27/2021 Encounter Details Date Type Department Care Team Description 10/27/2021 Telephone UR CASE MANAGEMENT social Jennifer work referral [id number] ATUL Gonzalez Social History Tobacco Use Types Packs/Day Years Used Date Smoking Tobacco: Never Alcohol Use Standard Drinks/Week Comments Yes 0 (1 standard drink = 0.6 oz pure alcoho l) occ Sex Assigned at Date Recorded Not on file COVID-19 Exposure Response Date Recorded In the last month, have you been in contact with No / Unsure 10/26/2021 1:52 PM ARNP someone who was confirmed or suspected to have Coronavirus / COVID-19? documented as of this encounter Miscellaneous Notes Telephone Encounter - Mei Rodriguez LICSW - 10/27/2021 12:05 PM ARNP Received referral with request for social work to contact patient this afternoon to discuss her wishes related to disposition after delivery. Phone call to patient. No answer but message left with my direct contact information. VIOLETA informed patient on the voice mail that I am available until 4:30 today and encouraged her to give me a call back. documented in this encounter Plan of Treatment Not on filedocumented as of this encounter Visit Diagnoses Not on filedocumented in this encounter Care Teams Card Boxer Relationship Specialty Start Date End Date [facility] PCP - General 09/05/17 [address] [address] [place], [place] [phone] documented as of this encounter
--- OUTSIDE RECORDS SUMMARY | 2022-08-23 08:25 | XMS_ITS | Encounter Summary ---
:1985 Author Organization [place] Address [address] [place] [address]. [place] [address] Care Team Providers Name Role Phone [facility] Primary Care Provider [phone] Reason for Visit Reason Comments Consult DAY CARE CENTER DIRECTOR (Emergency: 1-2 Days) - Pending Review Specialty Diagnoses / Procedures Referred By Contact Refer red To Contact fumigator and sterilizer Diagnoses Abnormal ultrasound Shirley Pearson [facility] Whs In Women [facility] [address] [facility] [place] [address] [facility] [address] [place] [address] Phone: Fax: Referral ID Status Reason Start Date Expiration Date Visits V isits Requested Authorized [id number] Pending 10/25/2021 10/25/2022 1 1 Review Encounter Details Date Type Department Care Team Description 10/26/2021 Virtual Visit [facility] Milly Pearson [facility] [address] [place] [address] Known anomaly, Clinic Gia Umanzor MD [address] [place], [place] [address] antepartum, single or [address] [place] unspecified fetus [place], [place] (Primary Dx) [address] Social History Tobacco Use Types Packs/Day Years Used Date Smoking Tobacco: Never Alcohol Use Standard Drinks/Week Comments Yes 0 (1 standard drink = 0.6 oz pure alcoho l) occ Sex Assigned at Date Recorded Not on file COVID-19 Exposure Response Date Recorded In the last month, have you been in contact with No / Unsure 10/26/2021 1:52 PM RELOCATION COMMISSIONER someone who was confirmed or suspected to [...] the ultrasound in lieu of clinic appointmentat [place]. I called her after her ultrasound with [facility] She and her are interested in induction [...] MD. Plan for induction of labor at [place] on 10/28 at 9am. Will get COVID [...] and is interested in talking with a high school social studies teacher tomorrow to help make arrangements ahead of time. She has questions about insurance coverage. I will have the hospital high school social studies teacher reach out to her. I also gave her my ecd's phone number who may be able to help with coding questions. Phone call duration: 29min Gia Martínez MD CATION COMMISSIONER documented in this encounter Plan of Treatment Scheduled Referrals Name Type Priority Associated Diagnoses Order S chedule Diamond Die Driller Referral Referral Emergency: 1-2 Days Abnormal Ord ered: 10/25/2021 ultrasound documented as of this encounter Visit Diagnoses Diagnosis Known anomaly, antepartum, single or unspecified fetus - Primary documented in this encounter Care Teams Software Test Automation Engineer Relationship Specialty Start Date End Date [facility] PCP - General 09/05/17 [address] [address] [place], [place] [phone] documented as of this encounter
--- OUTSIDE RECORDS SUMMARY | 2022-08-23 08:25 | XMS_ITS | Encounter Summary ---
:1985 Author Organization [place] Address [address] [place] [address]. [place] [address] Care Team Providers Name Role Phone [facility] Primary Care Provider [phone] Reason for Visit Reason Comments Ultrasound L2 - abnormal US on outside clinic Encounter Details Date Type Department Care Team Description 10/26/2021 PRE VISIT [facility] Ariadna Cavazos, Ultraso und (L2 - Maternal Medicine RN abno rmal US on outside Center [facility]) [address] [place], [place] [address] Social History Tobacco Use Types [...] on filedocumented in this encounter Care Teams Nuclear Plant Equipment Operator Relationship Specialty Start Date End Date [facility] PCP - General 09/05/17 [address] [address] [place], [place] [phone] documented as of this encounter
--- OUTSIDE RECORDS SUMMARY | 2022-08-23 08:25 | XMS_ITS | Encounter Summary ---
:1985 Author Organization [place] Address [address] [place] [address]. [place] [address] Care Team Providers Name Role Phone [facility] Primary Care Provider [phone] Ernestina Shah MD Unavailable Reason for Referral - Closed Specialty Diagnoses / Procedures Referred By Contact Refer red To Contact Diagnoses Seizure disorder in , antepartum, first trimester (H) Polypharmacy Maternal Med [address] [address] [place], [place] [address] Referral ID Status Reason Start Date Expiration Date Visits Requ ested Visits Authorized [id number] Closed 07/30/2018 07/30/2019 1 1 Encounter Details Date Type Department Care Team Description 07/30/2018 Orders Only [facility], Seizure disorder in , antepartum, first trimester (H) (Primary Dx); Maternal Gia Hope RN Polypharmacy Medicine Center [place] [address] [address] [place], [place] [address] Social History Tobacco Use Types Packs/Day Years Used Date Smoking Tobacco: Never Alcohol Use Standard Drinks/Week Comments Yes 0 (1 standard drink = 0.6 oz pure alcoho l) occ Sex Assigned at Date Recorded Not on file documented as of this encounter Plan of Treatment Scheduled Referrals Name Type Priority Associated Diagnoses Order S chedule [facility] Office Visit Referral Routine Seizure disorder in Week ly for 1 Occurrences , antepartum, start ing 07/30/2018 until first trimester (H) 07/30/2019 Polypharmacy documented as of this encounter Visit Diagnoses Diagnosis Seizure disorder in , antepartu m, first trimester (H) - Primary Polypharmacy Issue of repeat prescriptions documented in this encounter Care Teams Maitre D Relationship Specialty Start Date End Date [facility] PCP - General 09/05/17 [address] [address] [place], [place] [phone] Ernestina Shah MD MD Neurology 09/05/17 10/28/18 [facility] CLINIC OF NEUROLOGY [facility] [address] [address] documented as of this encounter
--- OUTSIDE RECORDS SUMMARY | 2022-08-23 08:25 | XMS_ITS | Encounter Summary ---
:1985 Author Organization [place] Address [address] [place] [address]. [place] [address] Care Team Providers Name Role Phone [facility] Primary Care Provider [phone] Reason for Referral Diagnostic Imaging Ultrasound (Routine) - Pending Review Specialty Diagnoses / Procedures Referred By Contact Refer red To Contact Diagnoses related condition, antepartum Peterson Pearson Procedures [facility] [address] [place] [address] Referral ID Status Reason Start Date Expiration Date Visits V isits Requested Authorized [id number] Pending 10/24/2021 10/24/2022 1 1 Review LOGY SPECIALIST Consultation (Routine: Next available opening) - Pending Review Specialty Diagnoses / Procedures Referred By Contact Refer red To Contact Diagnoses related condition, antepartum Peterson Pearson [facility] [address] [place] [address] Referral ID Status Reason Start Date Expiration Date Visits V isits Requested Authorized [id number] Pending 10/24/2021 10/24/2022 1 1 Review LOGY SPECIALIST Encounter Details Date Type Department Care Team Description 10/24/2021 Transcribe Orders [facility] James Pearson misty related Maternal Peterson Becerra condition, Medicine [facility] antepartum ([facility] Dx) [address] [facility] [address] [place], [place] [address] Social History Tobacco Use Types Packs/Day [...] 04/22/2022 documented as of this encounter Results [facility] US Comprehensive Single (10/26/2021 3:29 PM ONCOLOGY SPECIALIST) Anatomical Region Laterality Modality Ultrasound Specimen (Source) Anatomical Collection Method Collection Time Re ceived Time Location / / Volume Laterality 10/26/2021 1:55 PM ONCOLOGY SPECIALIST Impressions 10/26/2021 5:17 PM ONCOLOGY SPECIALIST IMPRESSION 1) Eduardo intrauterine at 2 1w [...] of growth restriction. Narrative 10/26/2021 5:17 PM ONCOLOGY SPECIALIST Comprehensive Pat. Name: TRINITY AYALA Study Chet e: 10/26/2021 1:55pm Pat. NO: [id number] Referring ??MD: SETH FRAGOSO Site: [facility] Ships Equipment Engineer: Marya Moy RDMS : 1985 Age: 36 [...] lb 11 ? oz EFW by ?Hadlock ([id number]) Head / Face / Neck Biometry: Cider Maker ? 4.8 ? mm CM ?5.4 ? mm Nasal bone ? 6.1 ? mm Extremities / Bony Struc Biometry: Radius ? 6.3 ? mm ?<1% ?Garcia Ulna ?22.0 ?mm ? <1% ? Garcia Rt Humerus ?29.6 ? mm ?19w 5d ?Schuyler Rt Radius ? 6.3 ? mm ? <1% ? Gracia Rt Ulna ?21.5 ?mm ? <1% ?Garcia [...] Heart / Thorax ?Situs. Ductal arch view. 9-ahwkqo-inqeujf view. Cardiac position. Cardiac size. Cardiac rhythm. [...] Name:Erlinda AYALA Date: 10/26/2021 1:55pm Pat. NO: [id number] MD:PETERSON MEDINA Site:UMMCSonographer:Marya Moy RD MS :1985Age:36 INDICATION Multiple [...] 0 lb 11 oz EFW by Hadlock ([id number]) Head / Face / Neck Biometry: Cider Maker 4.8 mm CM 5.4 mm Nasal bone [...] Vermis. Neck. Face Lips. Profile. Nose. Maxilla. Asvita ble. Lens. Heart / Thorax Situs. Ductal arch view. 9-mhxpzn-czecgya view. Cardiac position. Cardiac size. Cardiac rhythm. [...] the finding of growth restriction. Peterson Medina [facility] US ORDERABLES documented in this encounter Visit Diagnoses Diagnosis related condition, antepartum - Primary related condition, antepartum documented in this encounter Care Teams Consultant Intern Relationship Specialty Start Date End Date [facility] PCP - General 09/05/17 [address] [place] [address] documented as of this encounter
--- OUTSIDE RECORDS SUMMARY | 2022-08-23 08:25 | XMS_ITS | Encounter Summary ---
:1985 Author Organization [address] [place] [address] Care Team Providers Name Role Phone [facility] Primary Care Provider [phone] Ernestina Shah MD Unavailable Encounter Details Date Type Department Care Team Description 07/23/[address] [facility] PROVIDER Health Info Mgmt Non-Provider SERVICE REQ UEST [address] [address] Social History Tobacco Use Types [...] on filedocumented in this encounter Care Teams County Home Demonstration Agent Relationship Specialty Start Date End Date [facility] Medical PCP - General 09/05/17 [address] [place] [address] Ernestina Shah MD MD Neurology 09/05/17 10/28/18 [facility] [address] [facility] [address] [place] [address] documented as of this encounter
--- OUTSIDE RECORDS SUMMARY | 2022-08-23 08:25 | XMS_ITS | Encounter Summary ---
:1985 Author Organization [facility] Address [address] [place] [address] Care Team Providers Name Role Phone Unavailable Primary Care Provider Unavailable Encounter Details Date Type Department Care Team Description 09/04/[address] [facility] Abols, Ernestina Nonintrac table [facility] Laboratory MD Adriana generalized idiopathic [address] [facility] OF epilepsy with status [place], [place] NEUROLOGY epilepticus (H) (Primary [id number] [address]) [phone] [place], [place] [id number] Social History Tobacco Use Types Packs/Day Years Used Date Smoking Tobacco: Never Alcohol Use Standard Drinks/Week Comments Yes 0 (1 standard drink = 0.6 oz pure alcoho l) occ Sex Assigned at Date Recorded Not on file documented as of this encounter Plan of Treatment Not on filedocumented as of this encounter Results (ABNORMAL) Keppra (Levetiracetam) Level (09/05/2017 7:19 AM DECK SUPERVISOR) athologist Signature Keppra 2 (L) 12 - 46 09/06/2017 [facility] (Levetiracetam) ug/mL 3:44 AM [facility] Comment: (Note) INTERPRETIVE INFORMATION: Keppra (Leveti racetam) Therapeutic Range: ??12-46 ug/mL ? Toxic: ??Not well Establ ished Pharmacokinetics of levetiracetam are af fected by renal function. Adverse effects may include so mnolence, weakness, headache and vomiting. Performed by [facility], [address] [place] [address] [phone] [email or web address], Francisco Rubio MD, Lab. Director Specimen Anatomical Collection Method Collection Time Receive d Time (Source) Location / / Volume Laterality Blood specimen 09/05/2017 7:19 AM 017 7:20 (specimen) DECK SUPERVISOR AM DECK SUPERVISOR Ernestina Shah MD LAB - BLOOD ORDERABLES Performing Organization Address City/[facility]/ZIP Code Phon e Number [facility] [address] [place] [address] [facility] [address] [place] [address] 7, [facility] [phone] Lamotrigine Level (09/05/2017 7:19 AM DECK SUPERVISOR) athologist Signature Lamotrigine 5.1 2.5 - 15.0 09/06/2017 [facility] Level ug/mL 3:44 AM [facility] Comment: (Note) INTERPRETIVE INFORMATION: ??Lamotrigine Therapeutic Range: ??2.5-15.0 ug/mL ? Toxic: ??Not well establ ished Pharmacokinetics varies widely, particul leon with co-medications and/or compromised renal function. ??Adverse effects may include dizziness, somnolenc e, nausea and vomiting. Performed by [facility], [address] [facility] [address] [email or web address], Francisco Rubio MD, Lab. Director Specimen Anatomical Collection Method Collection Time Receive d Time (Source) Location / / Volume Laterality Blood specimen 09/05/2017 7:19 AM 017 7:20 (specimen) DECK SUPERVISOR AM DECK SUPERVISOR Ernestina Shah MD LAB - BLOOD ORDERABLES Performing Organization Address City/State/ZIP Code Phon e Number [facility] [address] [place], [place] [address] [facility] [address] [place] [address], [facility] [phone] (ABNORMAL) Comprehensive metabolic panel (BMP + Alb, Alk Phos, ALT, AST, Total. Bili, TP) (09/05/2017 7:19 AM [facility]) athologist Signature Sodium 141 133 - 144 09/05/2017 [facility] mmol/L 7:44 AM [facility] Potassium 3.7 3.4 - 5.3 09/05/2017 [facility] mmol/L 7:44 AM [facility] Chloride 114 (H) 94 - 109 09/05/2017 [facility] mmol/L 7:44 AM [facility] Carbon Dioxide 20 20 - 32 09/05/2017 [facility] mmol/L 7:44 AM [facility] Anion Gap 7 3 - 14 09/05/2017 [facility] mmol/L 7:44 AM [facility] Glucose 93 70 - 99 09/05/2017 [facility] mg/dL 7:44 AM [facility] Urea Nitrogen 13 7 - 30 09/05/2017 [facility] mg/dL 7:44 AM [facility] Creatinine 0.98 0.52 - 09/05/2017 [facility] 1.04 mg/dL 7:44 AM [facility] GFR Estimate 66 >60 09/05/2017 [facility] mL/min/1.7 7:[address] Comment: Non GFR Calc GFR Estimate If 80 >60 mL/min/1.7m2 09/05/2017 7:44 A M [facility] Comment: GFR Calc Calcium 8.9 8.5 - 10.1 mg/dL 09/05/2017 7:44 AM [facility] Bilirubin Total 0.6 0.2 - 1.3 mg/dL 09/05/2017 7:44 AM [facility] Albumin 4.0 3.4 - 5.0 g/dL 09/05/2017 7:44 AM [facility] Protein Total 7.4 6.8 - 8.8 g/dL 09/05/2017 7:44 AM [facility] Alkaline Phosphatase 65 40 - 150 U/L 09/05/2017 7:44 AM [facility] ALT 16 0 - 50 U/L 09/05/2017 7:44 AM [facility] AST 13 0 - 45 U/L 09/05/2017 7:44 AM [facility] Specimen Anatomical Collection Method Collection Time Receive d Time (Source) Location / / Volume Laterality Blood specimen 09/05/2017 7:19 AM 017 7:20 (specimen) DECK SUPERVISOR AM DECK SUPERVISOR Ernestina Shah MD LAB - BLOOD ORDERABLES Performing Organization Address City/State/ZIP Code Phon e Number [place] [address] [place] [address] [facility] [address] [phone] documented in this encounter Visit Diagnoses Diagnosis 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
--- OUTSIDE RECORDS SUMMARY | 2022-08-23 08:25 | XMS_ITS | Encounter Summary ---
:1985 Author Organization [facility] Address [address] [place] [address]. [place] [address] Care Team Providers Name Role Phone [facility] Primary Care Provider [phone] Reason for Referral LAMPS TESTER AND INSPECTOR (Emergency: 1-2 Days) - Pending Review Specialty Diagnoses / Procedures Referred By Contact Refer red To Contact marketing automation specialist Diagnoses Abnormal ultrasound Shirley Pearson [facility] [address] [facility] [place] [address] [facility] [address] [facility],Devan [address] [facility] [address] Phone: Fax: Referral ID Status Reason Start Date Expiration Date Visits V isits Requested Authorized [id number] Pending 10/25/2021 10/25/2022 1 1 Review L ASSISTANT MANAGER Encounter Details Date Type Department Care Team [...] Type Priority Associated Diagnoses Order S chedule Hospice Administrator Referral Referral Emergency: 1-2 Days Abnormal Ord ered: 10/25/2021 ultrasound documented as of this encounter Visit Diagnoses Diagnosis Abnormal ultrasound - Primary Abnormal findings on screening documented in this encounter Care Teams Home Attendant Relationship Specialty Start Date End Date [facility] PCP - General 09/05/17 [address] [place] [address] documented as of this encounter
--- OUTSIDE RECORDS SUMMARY | 2022-08-23 08:25 | XMS_ITS | Encounter Summary ---
:1985 Author Organization [facility] Address [address] [place] [address] Care Team Providers Name Role Phone [facility] Care Provider [phone] Reason for Referral Diagnostic Imaging Ultrasound (Routine) - Pending Review Specialty Diagnoses / Procedures Referred By Contact Refer red To Contact Diagnoses related condition, antepartum Peterson Pearson Procedures [facility] [address] [place] [address] Referral ID Status Reason Start Date Expiration Date Visits V isits Requested Authorized [id number] Pending 10/24/2021 10/24/2022 1 1 Review D PLACEMENT DIRECTOR Reason for Visit Diagnostic Imaging Ultrasound (Routine) - Pending Review Specialty Diagnoses / Procedures Referred By Contact Refer red To Contact Diagnoses related condition, antepartum Peterson Pearson Procedures [facility] [address] [place] [address] Referral ID Status Reason Start Date Expiration Date Visits V isits Requested Authorized [id number] Pending 10/24/2021 10/24/2022 1 1 Review Encounter Details Date Type Department Care Team Description 10/26/2021 Hospital Encounter [facility] Abbi Pearson garfield related Maternal Peterson Becerra condition, Medicine [facility] antepartum [facility] [address] [place] [address] [phone] Social History Tobacco Use Types Packs/Day Years Used Date Smoking Tobacco: Never Alcohol Use Standard Drinks/Week Comments Yes 0 (1 standard drink = 0.6 oz pure alcoho l) occ Sex Assigned at Date Recorded Not on file COVID-19 Exposure Response Date Recorded In the last month, have you been in contact with No / Unsure 10/26/2021 1:52 PM FIELD PLACEMENT DIRECTOR someone who was confirmed or suspected to [...] Procedure Name Priority Date/Time Associated Comments Diagnosis [facility] US COMPREHENSIVE Routine 10/26/2021 3:29 PM rela estelita Results for this SINGLE FIELD PLACEMENT DIRECTOR condition, procedure are i n antepartum the results section. documented in this encounter Results [facility] US Comprehensive Single (10/26/2021 3:29 PM FIELD PLACEMENT DIRECTOR) Anatomical Region Laterality Modality Ultrasound Specimen (Source) Anatomical Collection Method Collection Time Re ceived Time Location / / Volume Laterality 10/26/2021 1:55 PM FIELD PLACEMENT DIRECTOR Impressions 10/26/2021 5:17 PM FIELD PLACEMENT DIRECTOR IMPRESSION 1) Eduardo intrauterine at 2 1w [...] of growth restriction. Narrative 10/26/2021 5:17 PM FIELD PLACEMENT DIRECTOR Comprehensive Pat. Name: SAI AYALAMARY Dimas Chet e: 10/26/2021 1:55pm Pat. NO: [id number] Referring ??: SETH FRAGOSO Site: [facility] Artificial Limb Fitter: Marya Moy RDMS : 1985 Age: 36 [...] lb 11 ? oz EFW by ?Hadlock ([id number]) Head / Face / Neck Biometry: Readers' Advisory Service Librarian ? 4.8 ? mm CM ?5.4 ? [...] Heart / Thorax ?Situs. Ductal arch view. 5-vdvjqb-ymhgxgw view. Cardiac position. Cardiac size. Cardiac rhythm. [...] scheduled of induction of la bor through [facility]. Trinity would like to proceed with delivery [...] Name:Zena AYALAshanthidavid Date: 10/26/2021 1:55pm Pat. NO: [id number] MD:PETERSON RODRIGUEZPENDING SALE TO [facility]Marya Moy RD MS :1985Age:36 INDICATION [...] 0 lb 11 oz EFW by Hadlock ([id number]) Head / Face / Neck Biometry: Readers' Advisory Service Librarian 4.8 mm CM 5.4 mm Nasal bone [...] mm <1% Garcia Tibia 25.0 mm 4% Gracia Fibula 26.3 mm 12% Garcia Rt Femur [...] Heart / Thorax Situs. Ductal arch view. 8-qvlcax-rgzczko view. Cardiac position. Cardiac size. Cardiac rhythm. [...] RECOMMENDATION We discussed the findings on [facility] with the patient. Trinity was referred to our office for an comprehensive ultrasound to confirm the findings on previous outside ultrasound. The couple were previously counseled regarding the multiple anomalies a nd have decided to proceed with termination of . She is scheduled to see Dr. Martínez later today to further discuss the process and scheduled of induction of la bor through [facility]. Trinity would like to proceed with delivery [...] the finding of growth restriction. Peterson [facility] US ORDERABLES documented in this encounter Visit Diagnoses Diagnosis related condition, antepartum documented in this encounter Care Teams Tower Excavator Operator Relationship Specialty Start Date End Date [facility] PCP - General 09/05/17 [address] [place] [address] documented as of this encounter
--- OUTSIDE RECORDS SUMMARY | 2022-08-23 08:25 | XMS_ITS | Encounter Summary ---
:1985 Author Organization [facility] Address [address] [place] [address]. [place] [address] Care Team Providers Name Role Phone [facility] Care Provider [phone] Gia Martínez MD Unavailable [phone] Reason for Visit Reason Comments Induction Of Labor trisomy 18 Auth/Cert Specialty Diagnoses / Procedures Referred By Contact Refer red To Contact technology trainer Diagnoses Encounter for induction of labor Maternity elizabeth: 03/07/22 IOL Encounter for induction of labor Ur 4cob [address] [place] [address] Phone: Referral ID Status Reason Start Date Expiration Date Visits Requ ested Visits Authorized [id number] 1 1 Encounter Details Date Type Department Care Team Description 10/28/2021 - Hospital Encounter [facility] Sa rima Martínez MD [address] [place], [place] [address] 10/29/2021 [facility] Birthplace Marnie Tafoya MD [address] [place], [place] [id number] [address] [place] [phone] Social History Tobacco Use Types Packs/Day Years Used Date Smoking Tobacco: Never Smokeless Tobacco: Never Alcohol Use Standard Drinks/Week Comments Not Currently 0 (1 standard drink = 0.6 oz pure alcoho l) occ Sex Assigned at Date Recorded Not on file COVID-19 Exposure Response Date Recorded In the last month, have you been in contact with No / Unsure 10/28/2021 8:34 AM PRINCIPAL WEB DEVELOPER someone who was confirmed or suspected to have Coronavirus / COVID-19? documented as of this encounter Last Filed Vital Signs Vital Sign Reading Time Taken Comments Blood Pressure 107/66 10/29/2021 11:27 AM PRINCIPAL WEB DEVELOPER Pulse - - Temperature 37 ??C (98.6 ??F) 10/29/2021 6:23 AM PRINCIPAL WEB DEVELOPER Respiratory Rate 99 10/29/2021 8:38 AM PRINCIPAL WEB DEVELOPER Oxygen Saturation 100% 10/29/2021 12:01 PM PRINCIPAL WEB DEVELOPER Inhaled Oxygen Concentration - - Weight 79.4 kg (175 lb) 10/28/2021 9:00 AM PRINCIPAL WEB DEVELOPER Height 165.1 cm (5' 5) 10/28/2021 9:00 AM PRINCIPAL WEB DEVELOPER Body Mass Index 29.12 10/28/2021 9:00 AM PRINCIPAL WEB DEVELOPER documented in this encounter Discharge Summaries Lin Lemon MD - 10/29/2021 12:10 PM CST [facility] Discharge Summary Trinity Lozano Age: [age] [...] times daily Refills: 0 Consultations: Anesthesia Sales Management Intern Social work Brief Admission History Ms. Trinity [...] To Knowconsent on 10/26/21 at 1535 with sd. She received mifepristone 200mg PO and misoprostol 400mcg vaginally x2 doses. She received IV diluadid, IV fentanyl and an epidural for pain control. She developed [facility] fever of 103F which persisted for [...] to see where placenta was. Placenta was assisted through cervix at this time so it [...] Lemon MD PGY3 Obstetrics & Gynecology 10/29/21 CIPAL WEB DEVELOPER Associated attestation - Marnie Tafoya MD - 10/29/2021 3:28 PM PRINCIPAL WEB DEVELOPER Physician Attestation I, Marnie Tafoya, saw and evaluated this patient prior to discharge. I discussed the patient with the resident/fellow and agree with plan of care as documented in the note. I personally reviewed vital signs, medications, and imaging. I personally spent 10 minutes on discharge activities. Manrie Tafoya MD Date of Service (when I saw the patient): 10/29/21 documented in this encounter Discharge Instructions Discharge InstructionsThHaley johnson RN - 10/29/2021 2:07 PM CST Gia Martínez MD [facility] APPOINTMENT MANAGER Professional Building [address] [place] [address] [place] [id number] CIPAL WEB DEVELOPER AttachmentsThe following attachments cannot be sent through [...] Cornelio Harris - 10/29/2021 10:51 AM CST [facility] Unit: Labor and Delivery Referral Source: ELIZABETH page Illness Narrative: Trinity had an induced labor, son Avtar was born but did not survive long outsidethe womb. Distress: Grief at the loss of their child. Coping: Parents of Avtar requested a [place], Naming and Commendation service for their son Avtar.. Plan: On-call visit, mom will be discharging soon. No plan to follow. Cornelio Strickland Flasher Adjuster Pager number: [phone] * [facility] remains available 29/04 for emergent requests/referrals, either by having the switchboard page the on-call executive housekeeper or by entering an ELIZABETH/STAT consult in [facility] (this will also page the on-call executive housekeeper).* CIPAL WEB DEVELOPER Bianka Hutson, SOHEILA - 10/29/2021 8:41 AM [...] Obstetrics & Gynecology PGY-3 1:58 AM 10/29/2021 CIPAL WEB DEVELOPER Anastasia Mejia MD - 10/28/2021 10:17 PM CST Cervix 2/50/-1, velez placed w/ 70 ccs without difficulty. Patient tolerated intervention well. Continue pitocin per protocol. Comfortable with epidural in place. Dr. Martínez updated. Anastasia Mejia MD Obstetrics & Gynecology PGY-3 10:18 PM 10/28/2021 CIPAL WEB DEVELOPER Anastasia Mejia MD - 10/28/2021 8:52 PM [...] Andrews MD - 10/28/2021 7:26 PM CST [facility] PROGRESS NOTE: October [...] Antibody Screen Negative Negative SPECIMEN EXPIRATION DATE [id number] ASSESSMENT / PLAN: 36 year old at [...] and resources with patient. Gia Martínez MD CIPAL WEB DEVELOPER Gia Martínez MD - 10/28/2021 6:25 PM [...] Antibody Screen Negative Negative SPECIMEN EXPIRATION DATE [id number] ASSESSMENT / PLAN: 36 year old at [...] or autopsy. Plan cremation. Gia Martínez MD CIPAL WEB DEVELOPER Madhuri Chaves, CCLS - 10/28/2021 3:48 PM [...] at bedside in room for Carolina's scheduledvisit. CIPAL WEB DEVELOPER Bianka Hutson, RN - 10/28/2021 11:41 AM CST Messsage left for Now I lay Me Down to Sleep that the patient would like pictures of their baby after it its born CIPAL WEB DEVELOPER documented in this encounter H&P Notes Gia Martínez MD - 10/28/2021 12:33 PM CST [facility] OB History and Physical Trinity Lozano [...] Past Surgical History: Procedure Laterality Date ??? 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 ? [...] desires cremation, s/p SW consult Epilepsy - RAPID TRANSIT OPERATOR lamictal, keppra, and acetazolamide The patient [...] the phone with me on 10/26/2021 at 2735. I completed the consent and administered mifepristone [...] Service (when I saw the patient): 10/28/21 CIPAL WEB DEVELOPER documented in this encounter Consult Notes Poornima Elizabeth - 10/28/2021 2:25 PM CSTAssociated Order(s): SPIRITUAL HEALTH SERVICES IP CONSULT SPIRITUAL HEALTH SERVICES SPIRITUAL ASSESSMENT Progress Note [facility] ([facility] 4COB ON-CALL VISIT REFERRAL SOURCE:Consult placed for pt asking for spiritual/emotional support: Induction of labor, fetus not compatible with life. Phone conversation with pt SOHEILA Carlton; will share information with overnight collection correspondent and tomorrow's daytime executive housekeeper regarding follow up care. Baby's Name: Avtar Ryan Father's name: Amrit. Mother is asking for a blessing/prayer after baby is born. RN did not believe they wanted orthodoxy and will clarify if this is the request. Per RN, mom stated something connected with our Christianity background but does not have to be too formal. Poornima Elizabeth MDiv Associate Sales Management Intern Pager [phone] Office [phone] [facility] remains available 29/04 for emergent requests/referrals, either by having the switchboard page the on-call executive housekeeper or by entering an ELIZABETH/STAT consult in [facility] (this will also page the on-call executive housekeeper). Routine [facility] consults receive an initial response within 24 hours. CIPAL WEB DEVELOPER documented in this encounter Miscellaneous Notes Plan [...] Encouraged to call if anything comes up. CIPAL WEB DEVELOPER Plan of Care - Bianka Hutson RN [...] can Call the [facility] if needed CIPAL WEB DEVELOPER L&D Delivery Note - Gia Martínez MD - 10/29/2021 8:58 AM PRINCIPAL WEB DEVELOPER OB Vaginal Delivery Note Trinity Lozano Age: [age] year old Date of : 1985 GA: 21w4d GP: Labor Complications: None EBL: mL Delivery QBL: Delivery Type: Vaginal, Spontaneous ROM to Delivery Time: (Delivered) Hours: 1 Minutes: 45 [place] Weight: 1 Minute 5 Minute 10 Minute Totals: 0 0 0 Delivery Details: Vaginal Delivery Summary 21w4d Stage 1: Trinity Lozano is a 36 year old who presented on 10/28/2021 at 21w3d for termination induction for multiple anomalies concerning for Trisomy 18. She completed a Women's Right To Knowconsent on 10/26/21 at 1535 with sd. She received mifepristone 200mg PO and misoprostol [...] to see where placenta was. Placenta was assisted through cervix at this time so it [...] holding baby. Gia Martínez MD Janna Lozano-Trinity [[id number]] Rupture date/time: 10/29/21 0602 Rupture type: Spontaneous [...] collection?: No Delivery (Maternal) (Provider to Complete) ([id number]) Episiotomy: None Perineal lacerations: None Genital tract inspection done: Pos Blood Loss Mother: Trinity Lozano #[id number] Start of Mother's Information Delivery Blood Loss 10/28/21 1947 - 10/29/21 0909 None End of Mother's Information Mother: Trinity Lozano #[id number] Delivery - Provider to Complete ([id number]) Delivering clinician: Gia Martínez MD Attempted Delivery Types (Choose all that apply): Spontaneous Vaginal Delivery Delivery Type (Choose the 1 that will go to the History): Vaginal, Spontaneous Placenta Removal: Spontaneous Comments: small but appears intact, 2vc Disposition: Pathology Presentation and Position Presentation: Vertex Gia Martínez MD CIPAL WEB DEVELOPER Plan of Care - Trinity Burton RN [...] update provider with any questions or concerns. CIPAL WEB DEVELOPER Provider Notification - Trinity Burton RN - 10/29/2021 3:15 AM PRINCIPAL WEB DEVELOPER 10/29/21 0154 Provider Notification Provider Name/Title Dr. Mejia Method of Notification At Bedside Request Evaluate in Person Notification Reason Labor Status;SVE SVE and provider unable to evaluate cervix due to velez balloon being in place. Provider gently tugged on velez balloon and still in place. Will continue to monitor and continue with plan of care. CIPAL WEB DEVELOPER Plan of Care - Anabel Busby RN [...] their baby had passed. Patient planning for executive housekeeper to visit after delivery and requesting orthodoxy. Will continue with current plan of care. CIPAL WEB DEVELOPER Provider Notification - Anabel Busby RN - [...] Tre parrish applied. WIll continue to monitor. CIPAL WEB DEVELOPER Plan of Care - Bianka Hutson RN - 10/28/2021 3:54 PM CST Patient is here for Induction for trisomy 18. She and her spouse are coping well. They desire to hold the baby boy and to have mementos. They would like the [place] after the baby is born to do a prayer and blessing. The child center assistant gave them lots of resources to help with talking to their daughter bout knowing she had a baby brother who passed as a baby as she gets older CIPAL WEB DEVELOPER documented in this encounter Plan of Treatment Not on filedocumented as of this encounter Procedures Procedure Name Priority Date/Time Associated Comments Diagnosis PLACENTA PATH ORDER Routine 10/29/2021 12:49 Resu lts for this AND INDICATIONS PM PRINCIPAL WEB DEVELOPER procedure ar e in the results section. CBC WITH PLATELETS Routine 10/28/2021 9:21 PM Res ults for this PRINCIPAL WEB DEVELOPER procedure are i n the results section. TYPE AND SCREEN, Routine 10/28/2021 10:23 Results for this ADULT AM PRINCIPAL WEB DEVELOPER procedure are i n the results section. ABO/RH TYPE AND Routine 10/28/2021 10:23 Results for this SCREEN AM PRINCIPAL WEB DEVELOPER procedure are i n the results section. CBC WITH PLATELETS Routine 10/28/2021 10:23 Resul ts for this AM PRINCIPAL WEB DEVELOPER procedure are i n the results section. COVID-19 VIRUS STAT 10/28/2021 10:05 Results f or this (CORONAVIRUS) BY PCR AM PRINCIPAL WEB DEVELOPER procedu re are in the results section. [...] path order and indications (10/29/2021 12:49 PM PRINCIPAL WEB DEVELOPER) Component Value Ref Test Analysis Performed At [facility] gist Range Method Time Signature Case Report Peds Surgical Pathology Repo rt ?Case: [id number] ? 03/11/2022 UU Authorizing Provider: ??Brendon sherman, Lin Tran MD ?Collected: ? 10/29/2021 12:49 PM ? 9:43 PM LABORATOR Y Ordering Location: ? [facility] ?Received: ?10/30/2021 11:00 AM ? [...] LABORATORY this testing was CDT completed at [facility] Case Images 03/11/2022 UU 9:43 PM LABORATORY CDT Specimen Anatomical Collection Method Collection Time Receive d Time (Source) Location / / Volume Laterality Placenta PLACENTAL Non-blood 10/29/2021 12:49 10/30/2021 STRUCTURE / Collection / PM PRINCIPAL WEB DEVELOPER 11:00 AM PRINCIPAL WEB DEVELOPER Unknown Unknown Lin Lemon MD LAB - JENI LUGO Performing Organization Address City/State/ZIP Code Phon [place] [address] [facility], Room 3580 UR [facility] [place], [place] [phone] [facility] [phone], Room M309 (ABNORMAL) CBC with platelets (10/28/2021 9:21 PM PRINCIPAL WEB DEVELOPER) [facility] gist Method Time Signature WBC Count 9.6 4.0 - 11.0 10/28/2021 UR LABORATORY 10e3/uL 9:28 PM PRINCIPAL WEB DEVELOPER RBC Count 3.62 (L) 3.80 - 10/28/2021 UR LABORATORY 5.20 9:28 PM PRINCIPAL WEB DEVELOPER 10e6/uL Hemoglobin 11.1 (L) 11.7 - 10/28/2021 UR LABORATORY 15.7 g/dL 9:28 PM PRINCIPAL WEB DEVELOPER Hematocrit 32.7 (L) 35.0 - 10/28/2021 [facility] LAB[facility]ATORY 47.0 % 9:28 PM PRINCIPAL WEB DEVELOPER MCV 90 78 - 100 10/28/2021 UR LABORATORY fL 9:28 PM PRINCIPAL WEB DEVELOPER MCH 30.7 26.5 - 10/28/2021 UR LABORATORY 33.0 pg 9:28 PM PRINCIPAL WEB DEVELOPER MCHC 33.9 31.5 - 10/28/2021 UR LABORATORY 36.5 g/dL 9:28 PM PRINCIPAL WEB DEVELOPER RDW 12.7 10.0 - 10/28/2021 UR LABORATORY 15.0 % 9:28 PM PRINCIPAL WEB DEVELOPER Platelet Count 229 150 - 450 10/28/2021 UR LABORATORY 10e3/uL 9:28 PM PRINCIPAL WEB DEVELOPER Specimen Anatomical Collection Method / Collection Time Recei chelsey Time (Source) Location / Volume Laterality Blood STRUCTURE OF LEFT Venipuncture / 10/28/2021 9:21 10/28 9:26 HAND / Unknown Unknown PM PRINCIPAL WEB DEVELOPER PM PRINCIPAL WEB DEVELOPER Anastasia Mejia MD LAB - BLOOD ORDERABLES Performing Organization Address City/State/ZIP Code Phon e Number UR LABORATORY [facility] [place] [address] Care Lab [address] [place] [address], Room M309 Adult Type and Screen (10/28/2021 10:23 AM PRINCIPAL WEB DEVELOPER) Patholo gist Method Time Signature ABO/RH(D) O POS 10/28/2021 UR BLOOD 10:00 AM BANK PRINCIPAL WEB DEVELOPER Antibody Negative Negative 10/28/2021 UR BLOOD Screen 10:00 AM BANK PRINCIPAL WEB DEVELOPER SPECIMEN [id number] 10/28/2021 UR BLOOD EXPIRATION 10:00 AM BANK DATE PRINCIPAL WEB DEVELOPER Specimen Anatomical Collection Method / Collection Time Recei chelsey Time (Source) Location / Volume Laterality Blood STRUCTURE OF LEFT Venipuncture / 10/28/2021 10:23 10/08 HAND / Unknown Unknown AM PRINCIPAL WEB DEVELOPER 10:46 AM PRINCIPAL WEB DEVELOPER Anastasia Mejia MD LAB - BLOOD BANK TEST ORDER Performing Organization Address City/State/ZIP Code Phon e Number UR BLOOD BANK [facility] [place] [address] Components Lab [address] [place] [address], Room M301 CBC with platelets (10/28/2021 10:23 AM PRINCIPAL WEB DEVELOPER) P athologist Signature WBC Count 8.4 4.0 - 11.0 10/28/2021 UR CHILDREN 10e3/uL 10:53 AM PRINCIPAL WEB DEVELOPER LABORATORY RBC Count 3.94 3.80 - 10/28/2021 UR [facility]DREN 5.20 10:53 AM PRINCIPAL WEB DEVELOPER LABORATORY 10e6/uL Hemoglobin 12.0 11.7 - 10/28/2021 UR [facility] 15.7 g/dL 10:53 AM PRINCIPAL WEB DEVELOPER LABORATORY Hematocrit 36.7 35.0 - 10/28/2021 UR [facility]DREN 47.0 % 10:53 AM PRINCIPAL WEB DEVELOPER LABORATORY MCV 93 78 - 100 10/28/2021 UR [facility]DREN fL 10:53 AM PRINCIPAL WEB DEVELOPER LABORATORY MCH 30.5 26.5 - 10/28/2021 UR [facility] 33.0 pg 10:53 AM PRINCIPAL WEB DEVELOPER LABORATORY MCHC 32.7 31.5 - 10/28/2021 UR [facility] 36.5 g/dL 10:53 AM PRINCIPAL WEB DEVELOPER LABORATORY RDW 12.9 10.0 - 10/28/2021 UR [facility]DREN 15.0 % 10:53 AM PRINCIPAL WEB DEVELOPER LABORATORY Platelet Count 247 150 - 450 10/28/2021 UR [facility]DREN 10e3/uL 10:53 AM PRINCIPAL WEB DEVELOPER LABORATORY Specimen Anatomical Collection Method / Collection Time Recei chelsey Time (Source) Location / Volume Laterality Blood STRUCTURE OF LEFT Venipuncture / 10/28/2021 10:23 10/08 HAND / Unknown Unknown AM PRINCIPAL WEB DEVELOPER 10:46 AM PRINCIPAL WEB DEVELOPER Anastasia Mejia MD LAB - BLOOD ORDERABLES Performing Organization Address City/State/ZIP Code Phon e Number UR [facility] [place] [address] [place] [address] [facility] [place], [place] [phone] [address], [place] Asymptomatic COVID-19 Virus (Coronavirus) by PCR Nose (10/28/2021 10:05 AM PRINCIPAL WEB DEVELOPER) Analysis Performed At Patho logist Time Signature SARS CoV2 PCR Negative Negative 10/28/2021 UR LABORATORY 10:40 AM PRINCIPAL WEB DEVELOPER Comment: NEGATIVE: SARS-CoV-2 (COVID-19) RNA not detected, presumed negative. Specimen Anatomical Collection Method Collection Time Receive d Time (Source) Location / / Volume Laterality Swab NASAL STRUCTURE / Non-blood 10/28/2021 10:05 2021 Unknown Collection / AM PRINCIPAL WEB DEVELOPER 10:12 AM PRINCIPAL WEB DEVELOPER Unknown Narrative UR LABORATORY - 10/28/2021 10:40 AM PRINCIPAL WEB DEVELOPER Testing was performed using the slmi?? SARS-CoV-2 & Influenza A/B Assay on the [...] exposure or clinical presentation sugges ts COVID-19. ??[facility] Laboratories are certified under the Clinical Laborat ory Improvement Amendments of 1988 (CLIA-88) as qualified to perform moderate and/or high complexity laboratory testing. Anastasia Mejia MD LAB - MICRO GENERAL ORDERABL ES Performing Organization Address City/State/ZIP Code Phon e Number [place] [address] Care Lab [address] [facility], Room M309 Rubella Antibody IgG (External Result) (07/25/2021 12:00 PM CDT) [facility] [place] Method Time Signature Rubella Nonreactive Nonreactive [facility] (External) Comment: 10 Specimen (Source) Anatomical Collection Method Collection Time Re ceived Time Location / / Volume Laterality 07/25/2021 12:00 PM CDT [facility] LAB - HIM EXTERNAL RESULT Performing Organization Address City/State/ZIP Code Phon e Number [address] [address] Hepatitis B Surface Antigen (External Result) (07/25/2021 12:00 PM CDT) [facility] Method Time Signature Hepatitis B Nonreactive Nonreactive [facility] Antigen (External) Specimen (Source) Anatomical Collection Method Collection Time Re ceived Time Location / / Volume Laterality 07/25/2021 12:00 PM CDT January [facility] LAB - HIM EXTERNAL RESULT Performing Organization Address City/[facility]/ZIP Code Phon e Number [facility] [address] [place] [address] HIV-1 Antibody (External Result) (07/25/2021 12:00 PM CDT) [facility] Time Signature HIV 1&2 Negative Nonreactive [facility] (External) Specimen (Source) Anatomical Collection Method Collection Time Re ceived Time Location / / Volume Laterality 07/25/2021 12:00 PM CDT January [facility] LAB - [facility] EXTERNAL RESULT Performing Organization Address [facility] Code Phon e Number [facility] [address] [place] [address] documented in this encounter Visit Diagnoses Diagnosis Encounter for induction of labor documented in this encounter Admitting Diagnoses Diagnosis Encounter for induction of labor documented in this encounter Administered Medications Inactive Administered Medications - up to 3 most recent administrations Medication Order MAR Action Action Date Dose Rate Site acetaminophen (TYLENOL) tablet 650 Given 10/28/2021 6:26 PM PRINCIPAL WEB DEVELOPER 650 mg mg 650 mg, Oral, EVERY 4 HOURS PRN, mild pain, fever, greater than or equal to 38?? C /100.4?? F (oral) or 38.5?? C/ 101.4?? F (core)., Starting on 10/28/21 at 1039, Maximum acetaminophen dose from all sources = 75 mg/kg/day not to exceed 4 grams/day., Intrapartum acetaminophen (TYLENOL) tablet 975 mg Given 10/29/2021 9:06 AM PRINCIPAL WEB DEVELOPER 975 mg 975 mg, Oral, EVERY 6 HOURS, First dose on 10/28/21 at 2100, Scheduled acetaminophen (TYLENOL) until delivery for Intrapartum Intra-Amniotic Infection/Inflammation (Triple I). Nurse may discontinue this order with delivery. Maximum acetaminophen dose from all sources = 75 mg/kg/day not to exceed 4 grams/day., Intrapartum Given 10/29/2021 3:47 AM PRINCIPAL WEB DEVELOPER 975 mg Given 10/28/2021 10:21 PM PRINCIPAL WEB DEVELOPER 975 mg Acetazolamide ER 500mg (HOME MED) Nos Given 10/29/2021 8:48 AM PRINCIPAL WEB DEVELOPER 500 mg 500 mg, Oral, 2 TIMES DAILY, First dose on 10/28/21 at 2000 Given 10/28/2021 8:19 PM PRINCIPAL WEB DEVELOPER 500 mg ampicillin (OMNIPEN) 2 g vial to attach to NS New Bag 3:47 AM PRINCIPAL WEB DEVELOPER 2 g 100 mL bag STAT, 2 g, Intravenous, EVERY 6 HOURS, First dose on 10/28/21 at 2100, Give until delivery., Indications: Skin and Soft Tissue Infection, Intrapartum New Bag 10/28/2021 8:48 PM PRINCIPAL WEB DEVELOPER 2 g diphenoxylate-atropine (LOMOTIL) Given 10/28/2021 12:10 PM PRINCIPAL WEB DEVELOPER 2 tablets 2.5-0.025 MG per tablet 2 tablet 2 tablet, Oral, EVERY 6 HOURS PRN, diarrhea, Starting on 10/28/21 at 1230, Do not exceed 8 tabs in 24 hours, Intrapartum fentaNYL (PF) (SUBLIMAZE) 100 MCG/2ML in jection Starting on 10/28/21 at 1645, For 1 dose, Radames Busby ie: cabinet override fentaNYL (PF) (SUBLIMAZE) injection 100 mcg Given 10/28/2021 4:47 PM PRINCIPAL WEB DEVELOPER 100 mcg 100 mcg, Intravenous, ONCE, On 10/28/21 at 1700, For 1 dose fentaNYL (SUBLIMAZE) 2 mcg/mL, New Syringe/Cartridge 10/28/2021 5:34 PM PRINCIPAL WEB DEVELOPER ROPivacaine (NAROPIN) 0.1% in NaCl 0.9% for [...] pharmacy to send epidural tubing set., Routine [id number] 0.4-0.1-0.9 MG/2 00ML-% injection Angeline Heck: cabinet override Absolutely no anticoagul ants, thrombolytics or antiplatelet medications or other opioid analgesics or other sedatives without prior notification of anesthesiology. Fo r CADD cassettes, pharmacy to send epidural tubing set., 1 dose, Starting on 10/28/21 at 1703, Until 10/28/21 at 1734 gentamicin (GARAMYCIN) 140 mg in sodium New Bag 10/28/2021 9:29 PM PRINCIPAL WEB DEVELOPER 140 mg chloride 0.9 % 50 mL intermittent infusi on STAT, 140 mg (rounded from 132 mg = 2 mg/kg ? 66 kg Adjusted weight), Intravenous, ONCE, On 10/28/21 at 2100, For 1 dose, LOADING DOSE., Indications: Skin and Soft Tissue Infection, Intrapartum gentamicin (GARAMYCIN) infusion 100 mg New Bag 10/29/2021 6:08 AM PRINCIPAL WEB DEVELOPER 100 mg Routine, 100 mg (rounded from 99 mg = 1.5 mg/kg ? 66 kg Adjusted weight), Intravenous, EVERY 8 HOURS, First dose on 10/29/21 at 0500, Starting 8 hours after loading dose. Give until delivery., Indications: Skin and Soft Tissue Infection, Intrapartum HYDROmorphone (DILAUDID) injection 0.4 m g Given 10/28/2021 4:11 PM PRINCIPAL WEB DEVELOPER 0.4 mg 0.4 mg, Intravenous, EVERY 2 HOURS PRN, severe pain (7-10), with induction procedure., Starting on 10/28/21 at 1040, Intrapartum lactated ringers BOLUS 250 mL Rate/Dose Change 10/29/2021 5:37 AM PRINCIPAL WEB DEVELOPER Intravenous, 250 mL, ONCE PRN, other, hypotension, [...] ringers infusion New Bag 10/29/2021 2:32 AM PRINCIPAL WEB DEVELOPER 125 mL/hr at 25-125 mL/hr, Intravenous, CONTINUOUS PRN, Titrate lactated ringers rate to obtain total IV intake of 125 mL/hr. Total IV fluids should not exceed 125 mL/hr without provider order., Intrapartum, Starting on 10/28/21 at 1909, Until 10/29/21 at 0958 lactated ringers injection New Bag 10/28/2021 5:38 PM PRINCIPAL WEB DEVELOPER 1,000 mLs 125 mL/hr Angeline Busby: cabinet override, 1 dose, Starting on 10/28/21 at 1630, Until 10/28/21 at 1738 lactated ringers injection New Bag 10/28/2021 4:38 PM PRINCIPAL WEB DEVELOPER 1,000 mLs 999 mL/hr Angeline Busby: cabinet override, 1 dose, Starting on 10/28/21 at 1630, Until 10/28/21 at 1638 lamoTRIgine (LaMICtal) tablet 400 mg Given 10/29/2021 8:48 AM CS T 400 mg Pt-Supplied 400 mg, Oral, 2 TIMES DAILY, First dose (after last modification) on 10/28/21 at 2000, Patient to take home supply Given 10/28/2021 8:19 PM PRINCIPAL WEB DEVELOPER 400 mg Levetiracetam 1000mg tablet (HOME MED) A ur Given 10/29/2021 8:48 AM PRINCIPAL WEB DEVELOPER 1,000 mg 1,000 mg, Oral, 2 TIMES DAILY, First dose on 10/28/21 at 2000 Given 10/28/2021 8:20 PM PRINCIPAL WEB DEVELOPER 1,000 mg miFEPRIStone (MIFEPREX) tablet 200 mg Given 10/28/2021 12:11 PM PRINCIPAL WEB DEVELOPER 200 mg 200 mg, Oral, ONCE, On [...] tablet 400 mcg Given 10/28/2021 3:56 PM PRINCIPAL WEB DEVELOPER 400 mcg 400 mcg, Vaginal, EVERY 3 HOURS, First dose on 10/28/21 at 1300, Place in the posterior vaginal fornix. First dose to be administered concurrently with miFEPRIStone., Intrapartum Given 10/28/2021 12:09 PM PRINCIPAL WEB DEVELOPER 400 mcg nalbuphine (NUBAIN) injection 2.5-5 mg [...] mL/hr units in 500 mL 0.9% AM PRINCIPAL WEB DEVELOPER NaCl infusion 1-24 jose-units/min (1-24 mL/hr), Intravenous, [...] medication., Intrapartum Rate/Dose Change 10/29/2021 4:42 AM PRINCIPAL WEB DEVELOPER 18 jose-units/min 18 mL/hr Rate/Dose Change 10/29/2021 3:30 AM PRINCIPAL WEB DEVELOPER 16 jose-units/min 16 mL/hr phenylephrine (CELIA-SYNEPHRINE) 100 mcg/m L injection Starting on 10/28/21 at 1703, For 1 dose, Radames Busby ie: cabinet override Vesicant. phenylephrine (CELIA-SYNEPHRINE) injection 100 Given 6:41 PM PRINCIPAL WEB DEVELOPER 100 mcg mcg 100 mcg, Intravenous, EVERY [...] doses. Vesicant., Intrapartum Given 10/28/2021 6:34 PM PRINCIPAL WEB DEVELOPER 100 mcg documented in this encounter Active and Recently Administered Medications Times are shown in PRINCIPAL WEB DEVELOPER. Scheduled Medication Order 10/27/2021 10/28/2021 10/29/2021 acetaminophen [...] mcg (COMPLETED) 1646 (Given - Provider: Anabel Bsuby RN) 100 mcg, Intravenous, ONCE, On 10/28/21 [...] MED) Aur 2019 (Given - Provider: Anabel Busby, SOHEILA) 0848 (Given - Provider: Bianka mojica, SOHEILA) 1,000 mg, Oral, 2 TIMES DAILY, First dose on 10/28/21 at 2000 miFEPRIStone (MIFEPREX) tablet 200 mg (COMPLETED) 121 (Given - Provider: Bianka Hutson, SOHEILA) 200 mg, Oral, ONCE, On 10/28/21 at [...] mcg (CANCELED) 1209 (Given - Provider: Bianka Hutson, SOHEILA)1556 (Given - Provider: Anabel Busby, SOHEILA)1843 (Hold [...] Busby RN) 0752 (Stopped - Provider: Bianka tubbs, SOHEILA) PIB BOLUS (mL): 6, PIB BOLUS INTERVAL [...] 10/29/2021 acetaminophen (TYLENOL) tablet 650 mg (CANCELED) 1825 (Given - Provider: Anabel Busby, SOHEILA) 650 mg, Oral, EVERY 4 HOURS PRN, [...] requests., HYDROmorphone (DILAUDID) injection 0.4 mg (CANCELED) 161 (Given - Provider: Anabel Busby RN) 0.4 mg, Intravenous, EVERY 2 HOURS PRN, [...] Provider: Trinity Burton RN)0800 (Stopped - Provider: Binaka Hutson RN) at 25-125 mL/hr, Intravenous, CONTINUOUS [...] need Tdap vaccine CONTINUOUS PRN, Starting on 1/23/22 at 0955, Until 10/29/21 at 1653, Assessment: [...] after each naloxone dose. Consider transfer to [facility] if patient respiratory parameters hav e [...] doses.
documented in this encounter Care Teams Local Company Hazmat Driver Relationship Specialty Start Date End Date [facility] PCP - General [facility]05/17 [address] [facility] [place] [place] [id number] Gia Martínez MD Assigned OBGYN Provider 10/29/[address] [facility] [address] [place] [address] documented as of this encounter
--- OUTSIDE RECORDS SUMMARY | 2022-08-23 08:25 | XMS_ITS | Encounter Summary ---
:1985 Author Organization [place] Address [address] [place] [address]. [place] [address] Care Team Providers Name Role Phone [facility] Primary Care Provider Reason for Visit Reason Onset Date Comments social work referral 10/27/2021 Encounter Details Date Type Department Care Team Description 10/27/2021 Telephone UR CASE MANAGEMENT Jennifer social work referral [phone] Mei Sanchez [facility] Social History Tobacco Use Types Packs/Day Years Used Date Smoking Tobacco: Never Alcohol Use Standard Drinks/Week Comments Yes 0 (1 standard drink = 0.6 oz pure alcoho l) occ Sex Assigned at Date Recorded Not on file COVID-19 Exposure Response Date Recorded In the last month, have you been in contact with No / Unsure 10/26/2021 1:52 PM SHEET METAL INSTALLER someone who was confirmed or suspected to have Coronavirus / COVID-19? documented as of this encounter Miscellaneous Notes Telephone Encounter - Mei Rodriguez LICSW - 10/27/2021 3:33 PM SHEET METAL INSTALLER Received return phone call from patient. Her [...] madeone call to the [employer] to learn about their fees. The family does express some concern about finances so I did share information about [facility]. * Family knows this baby is a boy and they have chosen the name ???Avtar?? * Lilia have a 2.5 year-old daughter named Denita. They have some interest in having her come to the hospital for a visit to meet Avtar after delivery. This potential visit request has beenescalated to Birthplace manager nursing, Ce Gonzáles with request for compassionate exception [...] made an initial referral Cleo Villagomez- the unit coordinator ([phone]). Nursing staff to please contact [facility] again when family is ready for photos. * Trinity and Amrit shared they are not congregation but thought a special education aide visit for spiritual support and potential ritual would be very helpful and comforting. They asked that a special education aide please come see them. The on-call socia work team has been notified of this family's planned induction of labor and will follow-up. The on-call social media executive can be reached via pager [phone]. T METAL INSTALLER documented in this encounter Plan of Treatment Not on filedocumented as of this encounter Visit Diagnoses Not on filedocumented in this encounter Care Teams Client Resolution Specialist Relationship Specialty Start Date End Date [facility] Medical PCP - General 09/05/17 [address] [place] [address] documented as of this encounter
--- OUTSIDE RECORDS SUMMARY | 2022-08-23 08:26 | XMS_ITS | Encounter Summary ---
:1985 Author Organization [place] Address [address] [place] [address]. [place] [address] Care Team Providers Name Role Phone [facility] Primary Care Provider [phone] Reason for Visit Auth/Cert - Closed Specialty Diagnoses / Procedures Referred By Contact Refer red To Contact Surgery Diagnoses Chronic Tonsilitis Rh Periop Services Procedures TONSILLECTOMY [address] [place], [place] [address] Phone: Fax: Referral ID Status Reason Start Date Expiration Date Visits Requ ested Visits Authorized [id number] Closed 1 1 Encounter Details Date Type Department Care Team Description 02/18/2013 Hospital Encounter [facility] Tomasz Loya, Chronic tonsillitis Ridgejesus Post MD (Primary Dx) Anesthesia Care [facility] [address] [place], [place] [address] [facility] [phone] [place] [address] [place], [place] [address] Social History Tobacco Use Types Packs/Day Years [...] ML AT 2:10 PM TONSILLECTOMY DISCHARGE INSTRUCTIONS [facility], Akbar Guzman M.D. Phill Kahn M.D. [...] It is best to stay in the [facility] area for the two week healing [...] have any problems or questions, please call [phone], 24 hours a day. GENERAL ANESTHESIA OR [...] Component Value Ref Test Analysis Performed At [facility] Range Method Time Signature Copath Report Patient Name: TRINITY AYALA MR#: [id number] Specimen #: [id number] Collected: 02/18/2013 Received: 02/18/2013 Reported: 02/19/2013 16:17 [...] serial sections, no gross lesions are identified. ??Pile Fabric Knitter section is submitted in one cassette. B. ??The specimen, labeled left tonsil, consists of formal in-fixed morin to pink to hemorrhagic soft palatine tonsil measuring 2.5 cm x 1.5 cm x 1 cm. ??On serial sections, no gross lesions are identified. Pile Fabric Knitter section is submitted in one cassette. ??MGP/s g MICROSCOPIC: A. and B. ??Microscopic examination is performed. SA/sg DT/02-19-13 TESTING LAB LOCATION: [address] ??[id number] COLLECTION SITE: Client: [facility] Location: RHOR (R) Specimen Anatomical Collection Method Collection Time Receive d Time (Source) Location / / Volume Laterality 02/18/2013 1:15 PM 3 1:45 CDT PM CDT Tomasz Loya MD LAB - BEAKER AP Performing Organization Address City/State/ZIP Code Phon e Number COPATH HCG qualitative urine (02/18/2013 10:10 AM CDT) P athologist Signature HCG Qual Urine Negative NEG [facility] LAB Specimen Anatomical Collection Method Collection Time Receive d Time (Source) Location / / Volume Laterality Urine specimen URINE SPECIMEN / 02/18/2013 10:10 02/18 (specimen) Unknown AM CDT 10:23 AM CDT Allan Garrett MD LAB - URINE ORDERABLES Performing Organization Address City/State/ZIP Code Phon e Number M [facility] [address] [place] [address] [facility] documented in this [...] Intra-procedure documented in this encounter Care Teams Science Specialist Relationship Specialty Start Date End Date [facility] PCP - General 02/04/13 06/15/13 documented as of this encounter
--- OUTSIDE RECORDS SUMMARY | 2022-08-23 08:26 | XMS_ITS | Encounter Summary ---
:1985 Author Organization [place] Address [address] [place] [address] Care Team Providers Name Role Phone Unavailable Primary Care Provider Unavailable Encounter Details Date Type Department Care Team Description 07/24/2007 Historic Results INTERFACED REPORT Joe Barton MD [facility] [address] [place], [place] [address] (Wo rk) Social History Tobacco Use Types [...] differential and platelet (07/24/2007 9:39 PM CDT) [facility] Method Time Signature MCV 88 78 [...] PM 7 9:40 CDT PM CDT Markos Barotn MD LAB - BLOOD ORDERABLES Performing Organization [...] - BLOOD ORDERABLES Performing Organization Address City/[facility]/ZIP Code Phon e Number MISYS Levetiracetam level (07/24/2007 9:39 PM CDT) Analysis Performed At [facility] Time Signature Levetiracetam 15.2 MISYS Level Comment: Unit: ug/ml (Note) EXPECTED [employer]ADY STATE TROUGH CONCENTRATI ONS IN PATIENTS RECEIVING RECOMMENDED DAILY DOS AGES: 5 - 45 ug/ml. TOXIC RANGE HAS NOT BEEN ESTABLISHED. Analysis performed by [employer], [employer] [place] [address] Specimen Anatomical Collection Method Collection Time Receive d Time (Source) Location / / Volume Laterality 07/24/2007 9:39 PM 7 CDT 11:46 PM CDT Markos Barton MD LAB - BLOOD ORDERABLES Performing Organization Address [facility] Phon e Number MISYS documented in this encounter Visit Diagnoses Not on filedocumented in this encounter
--- OUTSIDE RECORDS SUMMARY | 2022-08-23 08:26 | XMS_ITS | Encounter Summary ---
:1985 Author Organization [place] Address [address] [place] [address]. [place] [address] Care Team Providers Name Role Phone Unavailable Primary Care Provider Unavailable Encounter Details Date Type Department Care Team Description 11/08/2006 Historic Results INTERFACED REPORT Salome Cornejo cas, MD EMERGENCY PHYSIC [facility] [address] [place], [place] [address] (Wo rk) Social History Tobacco Use Types Packs/Day Years Used Date Smoking Tobacco: Never Assessed Sex Assigned at Date Recorded Not on file documented as of this encounter Plan of Treatment Not on filedocumented as of this encounter Procedures Procedure Name Priority Date/Time Associated Comments Diagnosis HEMOGRAM DIFFERENTIAL STAT 11/08/2006 11:36 Re sults for this AND PLATELET PM CARD PUNCHING MACHINE OPERATOR procedure are i n the results section. LEVETIRACETAM LEVEL STAT 11/08/2006 11:36 Resu lts for this PM CARD PUNCHING MACHINE OPERATOR procedure are i n the results section. BASIC METABOLIC PANEL STAT 11/08/2006 11:36 Re sults for this PM CARD PUNCHING MACHINE OPERATOR procedure are i n the results section. ROUTINE UA WITH STAT 11/08/2006 11:29 Results for this MICROSCOPIC PM CARD PUNCHING MACHINE OPERATOR procedure are i n the results section. documented in this encounter Results Hemogram differential and platelet (11/08/2006 11:36 PM CARD PUNCHING MACHINE OPERATOR) [facility] Method Time Signature MCV 88 78 [...] / Volume Laterality 11/08/2006 11:36 11/08/2006 PM CARD PUNCHING MACHINE OPERATOR 11:16 PM CARD PUNCHING MACHINE OPERATOR Palomo Cornejo MD LAB - BLOOD ORDERABLES Performing Organization Address City/State/ZIP Code Phon e Number MISYS (ABNORMAL) Basic metabolic panel (11/08/2006 11:36 PM CARD PUNCHING MACHINE OPERATOR) athologist Signature Sodium 137 133 - 144 [...] / Volume Laterality 11/08/2006 11:36 11/08/2006 PM CARD PUNCHING MACHINE OPERATOR 11:16 PM CARD PUNCHING MACHINE OPERATOR Palomo Cornejo MD LAB - BLOOD ORDERABLES Performing Organization Address City/[facility]/ZIP Code Phon e Number MISYS Levetiracetam level (11/08/2006 11:36 PM CARD PUNCHING MACHINE OPERATOR) [facility] Time Signature Levetiracetam <2.0 MISYS Level Comment: Unit: ug/ml (Note) EXPECTED [employer]ADY STATE TROUGH CONCENTRATI ONS IN PATIENTS RECEIVING RECOMMENDED DAILY DOS AGES: 5 - 45 ug/ml. TOXIC RANGE HAS NOT BEEN ESTABLISHED. Analysis performed by [employer] [place] [address] Specimen Anatomical Collection Method Collection Time Receive d Time (Source) Location / / Volume Laterality 11/08/2006 11:36 11/08/2006 PM CARD PUNCHING MACHINE OPERATOR 11:16 PM CARD PUNCHING MACHINE OPERATOR Palomo Cornejo MD LAB - BLOOD ORDERABLES Performing Organization Address City/[facility] Code Phon e Number MISYS (ABNORMAL) Routine UA with microscopic (11/08/2006 11:29 PM CARD PUNCHING MACHINE OPERATOR) [facility] Method Time Signature Source Midstream MISYS Urine Color Urine Yellow MISYS Appearance Urine Clear MISYS Glucose Urine Negative NEG mg/dL MISYS Bilirubin Urine Negative NEG MISYS Ketones Urine Negative NEG mg/dL MISYS Specific [place]ile 1.019 1.003 - MISYS Urine 1.035 Blood [...] / Volume Laterality 11/08/2006 11:29 11/08/2006 PM CARD PUNCHING MACHINE OPERATOR 11:16 PM CARD PUNCHING MACHINE OPERATOR Palomo Cornejo MD LAB - URINE ORDERABLES Performing Organization Address City/State/ZIP Code Phon e Number MISYS documented in this encounter Visit Diagnoses Not on filedocumented in this encounter
--- OUTSIDE RECORDS SUMMARY | 2022-08-23 08:26 | XMS_ITS | Encounter Summary ---
:1985 Author Organization [place] Address [address] [place] [address] Care Team Providers Name Role Phone Unavailable Primary Care Provider Unavailable Encounter Details Date Type Department Care Team Description 03/07/2007 Historic Results INTERFACED REPORT Shayne [place] [address] [place] [address] (Wo rk) Social History Tobacco [...] UA with microscopic (03/07/2007 3:09 AM CDT) [facility] Method Time Signature Source Midstream MISYS Urine Color Urine Yellow MISYS Appearance Urine Clear MISYS Glucose Urine Negative NEG mg/dL MISYS Bilirubin Urine Negative NEG MISYS Ketones Urine Negative NEG mg/dL MISYS Specific [place] 1.024 1.003 - MISYS Urine 1.035 Blood [...] LAB - URINE ORDERABLES Performing Organization Address [facility] Phon e Number MISYS HCG qualitative urine (03/07/2007 3:09 AM CDT) P athologist Signature HCG Qual Urine Negative NEG MISYS Specimen Anatomical Collection Method Collection Time Receive d Time (Source) Location / / Volume Laterality 03/07/2007 3:09 AM 7 2:17 CDT AM CDT Walt Kidd LAB - URINE ORDERABLES Performing Organization Address [facility] Phon e Number MISYS Levetiracetam level (03/07/2007 2:28 AM CDT) Analysis Performed At Patho logist Time Signature Levetiracetam 5.6 MISYS Level Comment: Unit: ug/ml (Note) EXPECTED [employer]AD[employer] TROUGH CONCENTRATI ONS IN PATIENTS RECEIVING RECOMMENDED DAILY DOS AGES: 5 - 45 ug/ml. TOXIC RANGE HAS NOT BEEN ESTABLISHED. Analysis performed by [employer] [employer] [place] [address] Specimen Anatomical Collection Method Collection Time Receive d Time (Source) Location / / Volume Laterality 03/07/2007 2:28 AM 7 2:17 CDT AM CDT Walt Kidd LAB - BLOOD ORDERABLES Performing Organization Address [facility]/ZIP Code Phon e Number MISYS (ABNORMAL) Basic [...] LAB - BLOOD ORDERABLES Performing Organization Address City/State/[facility] Code Phon e Number MISYS Hemogram and [...]
--- OUTSIDE RECORDS SUMMARY | 2022-08-23 08:26 | XMS_ITS | Encounter Summary ---
:1985 Author Organization [place] Address [address] [place] [address]. [place] [address] Care Team Providers Name Role Phone Unavailable Primary Care Provider Unavailable Encounter Details Date Type Department Care Team Description 11/08/2006 Emergency room Spike Quispe MD EMERGENCY PHYSIC [facility] [address] [place], [place] [address] (Wo rk) Social History Tobacco Use Types Packs/Day Years Used Date Smoking Tobacco: Never Assessed Sex Assigned at Date Recorded Not on file documented as of this encounter Progress Notes Spike Quispe - 11/11/2006 2:21 AM PHOTOGRAPHIC PROCESSOR FINAL CHIEF COMPLAINT: Possible seizure. HISTORY OF [...] was able get the MRI report from [facility] that was done earlier today. This showed [...] MARIO#[id number] Name: TRINITY AYALA MRN: [id number] Account: [id number] : 1985 Visit Date: 11/08/2006 Document: [id number] OGRAPHIC PROCESSOR documented in this encounter Plan of Treatment Not on filedocumented as of this encounter Visit Diagnoses Not on filedocumented in this encounter
--- OUTSIDE RECORDS SUMMARY | 2022-08-23 08:26 | XMS_ITS | Encounter Summary ---
:1985 Author Organization [place] Address [address] [place] [address]. [place] [address] Care Team Providers Name Role Phone Unavailable Primary Care Provider Unavailable Encounter Details Date Type Department Care Team Description 10/12/2007 Emergency room Melisa Barton MD [facility] PHYS[facility] [address] [facility] [address] [place], [place] [address] (Wo rk) Social History Tobacco Use Types Packs/Day Years Used Date Smoking Tobacco: Never Assessed Sex Assigned at Date Recorded Not on file documented as of this encounter Progress Notes Melisa Barton MD - 11/13/2007 2:00 PM DIGITAL MARKETER FINAL CHIEF COMPLAINT: I got my period [...] 85, respirations 32, temperature 99 and oxygen [id number]% on room air. GENERAL: This is a [...] [id number] Name: TRINITY AYALA MRN: [id number] Account: [id number] : 1985 Visit Date: 10/12/2007 Document: [id number] TAL MARKETER documented in this encounter Plan of Treatment Not on filedocumented as of this encounter Visit Diagnoses Not on filedocumented in this encounter
--- OUTSIDE RECORDS SUMMARY | 2022-08-23 08:26 | XMS_ITS | Encounter Summary ---
:1985 Author Organization [place] Address [address] [place] [address]. [place] [address] Care Team Providers Name Role Phone Unavailable Primary Care Provider Unavailable Encounter Details Date Type Department Care Team Description 04/12/2005 Emergency room Doron Sargent EMERGENCY PHYSIC [facility] [address] [place] [address] (Wo rk) Social History Tobacco Use Types Packs/Day Years Used Date Smoking Tobacco: Never Assessed Sex Assigned at Date Recorded Not on file documented as of this encounter Progress Notes Interface, Em Physician - 04/12/2005 11:59 PM CDT : 89 CHIEF COMPLAINT: Left foot pain. 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 PLAN: Follow up with [facility] tomorrow as the pain is exquisite and she is not able to ambulate or bear weight. Should ice and elevate overnight until she sees Orthopedics. Parents said they would follow up, and Trinity said she definitely would go. There are no further questions or concerns. [id number] JOJO SARGENT MD MT: Document: [id number] [place], [place] Name: MR#: TRINITY AYALA -[id number] EMERGENCY ROOM ENCOUNTER Page 2 of 2 LCN: ERC DSC: 04/12/2005 [place], [place] Name: MR#: TRINITY AYALA -88 : Admit Date: Account #: 1985 04/12/2005 [id number] Doctor: JOJO SARGENT MD EMERGENCY ROOM ENCOUNTER Page 1 of 2 documented in this encounter Plan of Treatment Not on filedocumented as of this encounter Visit Diagnoses Not on filedocumented in this encounter
--- OUTSIDE RECORDS SUMMARY | 2022-08-23 08:26 | XMS_ITS | Encounter Summary ---
:1985 Author Organization [place] Address [address] [place] [address]. [place] [address] Care Team Providers Name Role Phone Unavailable Primary Care Provider Unavailable Encounter Details Date Type Department Care Team Description 03/07/2007 Emergency room Jessika Kidd [facility]Y PHYS[facility] [address] [facility] [place], [place] [phone] (Wo rk) Social History Tobacco Use Types Packs/Day Years Used Date Smoking Tobacco: Never Assessed Sex Assigned at Date Recorded Not on file documented as of this encounter Progress Notes Interface, Beater Operator - 05/02/2007 3:08 PM CDT FINAL CHIEF [...] appear grossly intact. No focal deficits. SKIN: [place], warm and dry. EMERGENCY DEPARTMENT COURSE: The [...] MD MT: [id number] Name: TRINITY AYALA Account: [id number] : 1985 Visit Date: 03/07/2007 Document: [id number] documented in this encounter Plan of Treatment Not on filedocumented as of this encounter Visit Diagnoses Not on filedocumented in this encounter
--- OUTSIDE RECORDS SUMMARY | 2022-08-23 08:26 | XMS_ITS | Encounter Summary ---
:1985 Author Organization [place] Address [address] [place] [address]. [place] [address] Care Team Providers Name Role Phone Unavailable Primary Care Provider Unavailable Encounter Details Date Type Department Care Team Description 07/24/2007 Results Only [facility] Markos Barton, Hospital Results MD [facility] [address] [facility] [address] [place], [place] [address] (Wo rk) Social History Tobacco Use Types Packs/Day Years Used Date Smoking Tobacco: Never Assessed Sex Assigned at Date Recorded Not on file documented as of this encounter Plan of Treatment Not on filedocumented as of this encounter Procedures Procedure Name Priority Date/Time Associated Diagnosis Comme [facility] US ABDOMEN Routine 07/24/2007 10:49 PM Results [...]
--- OUTSIDE RECORDS SUMMARY | 2022-08-23 08:26 | XMS_ITS | Encounter Summary ---
:1985 Author Organization [place] Address [address] [place] [address]. [place] [address] Care Team Providers Name Role Phone Unavailable Primary Care Provider Unavailable Encounter Details Date Type Department Care Team Description 04/12/[address] [facility] Results EMERGENCY PHYSI [facility] [address] [place] [address] (Wo rk) Social History [...]
--- OUTSIDE RECORDS SUMMARY | 2022-08-23 08:26 | XMS_ITS | Encounter Summary ---
:1985 Author Organization [facility] Address [address] [place] [address]. [place] [address] Care Team Providers Name Role Phone Unavailable Primary Care Provider Unavailable Encounter Details Date Type Department Care Team Description 10/12/2006 Emergency room Wander Arguello MD [address] [place] [address] Social History Tobacco Use Types Packs/Day Years Used Date Smoking Tobacco: Never Assessed Sex Assigned at Date Recorded Not on file documented as of this encounter Progress Notes Interface, Theatre Program Director - 10/17/2006 10:17 AM LOCKSTITCH WAISTLINE JOINER FINAL CHIEF COMPLAINT: Weakness. HISTORY OF PRESENT [...] has had some upper respiratory symptoms since [place] with a cough that has been nonproductive. [...] another EEG. She can do that through [facility] which is her primary clinic. In [...] including her parent's and boyfriend. I will quality control clerk her a work slip excusing her from her duties for 2 days. She is to have an EEG done at [facility] as soon as possible and they can call today to set that up. The patient is to be rechecked with her doctor within 5-6 days, sooner if needed and may return to emergency department as needed. DIAGNOSIS: Seizure. Electronically signed on 10/17/2006 10:17 by WANDER ARGUELLO MD MT: MARIO#[id number] Name: TRINITY AYALA Account: [id number] : 1985 Visit Date: 10/12/2006 Document: [id number] STITCH WAISTLINE JOINER documented in this encounter Plan of Treatment Not on filedocumented as of this encounter Visit Diagnoses Not on filedocumented in this encounter
--- OUTSIDE RECORDS SUMMARY | 2022-08-23 08:26 | XMS_ITS | Encounter Summary ---
:1985 Author Organization [place] Address [address] [place] [address]. [place] [address] Care Team Providers Name Role Phone Unavailable Primary Care Provider Unavailable Encounter Details Date Type Department Care Team Description 10/12/2006 Results Only [facility] Wander Arguello MD Hospital Results [address] [place] [address] Social History Tobacco Use Types Packs/Day Years Used Date Smoking Tobacco: Never Assessed Sex Assigned at Date Recorded Not on file documented as of this encounter Plan of Treatment Not on filedocumented as of this encounter Procedures Procedure Name Priority Date/Time Associated Diagnosis Comme [facility] CT HEAD WO Routine 10/12/2006 8:56 AM Results for this CONTRAST GLUELINE WORKER procedure are i n the results section. documented in this encounter Results CT SCAN HEAD/BRAIN (10/12/2006 8:56 AM GLUELINE WORKER) Anatomical Region Laterality Modality Other Specimen (Source) Anatomical Collection Method Collection Time Re ceived Time Location / / Volume Laterality 10/12/2006 8:56 AM GLUELINE WORKER Impressions 10/12/2006 9:04 AM GLUELINE WORKER EXAM: ?? CT HEAD W/O CONTRAST* CLINICAL INFORMATION: ?weak, ??Synco pe, ? FINDINGS: 1. ??Brain parenchyma and ventricles are normal. ? 2. ??Visualized sinuses are clear. ? IMPRESSION: ??Negative. Wander Arguello MD SPECIAL IMAGING STUDIES documented in this encounter Visit Diagnoses Not on filedocumented in this encounter
--- OUTSIDE RECORDS SUMMARY | 2022-08-23 08:26 | XMS_ITS | Encounter Summary ---
:1985 Author Organization [facility] Address [address] [place] [address]. [place] [address] Care Team Providers Name Role Phone Unavailable Primary Care Provider Unavailable Encounter Details Date Type Department Care Team Description 10/12/2006 Historic Results INTERFACED REPORT Wander Arguello MD [address] [place] [address] [place] [address] Social History Tobacco Use Types Packs/Day Years Used Date Smoking Tobacco: Never Assessed Sex Assigned at Date Recorded Not on file documented as of this encounter Plan of Treatment Not on filedocumented as of this encounter Procedures Procedure Name Priority Date/Time Associated Comments Diagnosis HEMOGRAM DIFFERENTIAL STAT 10/12/2006 8:45 AM Results for this AND PLATELET RESEARCH PHYSIOLOGIST procedure are i n the results section. HCG QUALITATIVE STAT 10/12/2006 8:45 AM Result s for this RESEARCH PHYSIOLOGIST procedure are i n the results section. BASIC METABOLIC PANEL STAT 10/12/2006 8:45 AM Results for this RESEARCH PHYSIOLOGIST procedure are i n the results section. documented in this encounter Results (ABNORMAL) Hemogram differential and platelet (10/12/2006 8:45 AM RESEARCH PHYSIOLOGIST) [facility] Method Time Signature MCV 89 78 [...] Volume Laterality 10/12/2006 8:45 AM 7 8:34 RESEARCH PHYSIOLOGIST AM RESEARCH PHYSIOLOGIST Wander Arguello MD LAB - BLOOD ORDERABLES Performing Organization Address City/State/ZIP Code Phon e Number MISYS Basic metabolic panel (10/12/2006 8:45 AM RESEARCH PHYSIOLOGIST) P athologist Signature Sodium 137 133 - [...] Volume Laterality 10/12/2006 8:45 AM 7 8:34 RESEARCH PHYSIOLOGIST AM RESEARCH PHYSIOLOGIST Wander Arguello MD LAB - BLOOD ORDERABLES Performing Organization Address City/[facility] Phon e Number MISYS HCG qualitative (10/12/2006 8:45 AM RESEARCH PHYSIOLOGIST) [facility] gist Method Time Signature HCG Qualitative Negative NEG MISYS Serum Specimen Anatomical Collection Method Collection Time Receive d Time (Source) Location / / Volume Laterality 10/12/2006 8:45 AM 7 8:34 RESEARCH PHYSIOLOGIST AM RESEARCH PHYSIOLOGIST Wander Arguello MD LAB - BLOOD ORDERABLES Performing Organization Address City/[facility] Phon e Number MISYS documented in this encounter Visit Diagnoses Not on filedocumented in this encounter
--- OUTSIDE RECORDS SUMMARY | 2022-08-23 08:26 | XMS_ITS | Encounter Summary ---
:1985 Author Organization [facility] Address [address] [place] [address]. [place] [address] Care Team Providers Name Role Phone Unavailable Primary Care Provider Unavailable Encounter Details Date Type Department Care Team Description 07/24/2007 Emergency room Melisa Barton MD EMERGENCY PHYSIC VIGNESH INMAN [address] [facility] [address] [place], [place] [address] (Wo rk) Social History Tobacco Use Types [...] MARIO#[id number] Name: TRINITY AYALA MRN: [id number] Account: [id number] : 1985 Visit Date: 07/24/2007 Document: [id number] documented in this encounter Plan of Treatment Not on filedocumented as of this encounter Visit Diagnoses Not on filedocumented in this encounter
--- OUTSIDE RECORDS SUMMARY | 2022-08-23 08:26 | XMS_ITS | Encounter Summary ---
:1985 Author Organization [place] Address [address] [place] [address]. [place] [address] Care Team Providers Name Role Phone Unavailable Primary Care Provider Unavailable Encounter Details Date Type Department Care Team Description 07/29/2005 Emergency room Adrienne Cantor MD SKIN REJUVENATIO N [facility] [address] [facility] [address] [place], [place] [address] (Wo rk) Social History Tobacco Use Types [...] MD MT: HECTOR Name: TRINITY AYALA Account: [id number] : 1985 Visit Date: 07/29/2005 Document: [id number] documented in this encounter Plan of Treatment Not on filedocumented as of this encounter Visit Diagnoses Not on filedocumented in this encounter
--- OUTSIDE RECORDS SUMMARY | 2022-08-23 08:26 | XMS_ITS | Encounter Summary ---
:1985 Author Organization [facility] Address [address] [place] [address] Care Team Providers Name Role Phone Unavailable Primary Care Provider Unavailable Encounter Details Date Type Department Care Team Description 10/12/2006 Historic Results INTERFACED REPORT Wander Arguello MD [address] [place] [address] [place] [address] Social History Tobacco Use Types Packs/Day Years Used Date Smoking Tobacco: Never Assessed Sex Assigned at Date Recorded Not on file documented as of this encounter Plan of Treatment Not on filedocumented as of this encounter Procedures Procedure Name Priority Date/Time Associated Diagnosis Comme nts EKG 12 LEAD Routine 10/12/2006 8:37 AM Results f or this INVESTMENT MANAGER procedure are i n the results section . documented in this encounter Results EKG 12 LEAD (10/12/2006 8:37 AM INVESTMENT MANAGER) Component Value Ref Range Test Analysis Performed Pathologis t Method Time At Signature Ventricular Rate 83 BPM RADIOLOGY RESULTS Atrial Rate 83 BPM RADIOLOGY RESULTS IN Interval 158 ms RADIOLOGY RESULTS QRS Duration 82 ms RADIOLOGY RESULTS QT 340 ms RADIOLOGY RESULTS QTc 399 ms RADIOLOGY RESULTS P [place] 54 degrees RADIOLOGY RESULTS R AXIS 48 degrees RADIOLOGY RESULTS T [place] 20 degrees RADIOLOGY RESULTS Interpretation Poor data [...] Volume Laterality 10/12/2006 8:37 AM 7 8:34 INVESTMENT MANAGER AM INVESTMENT MANAGER Wander Arguello MD ECG ORDERABLES Performing Organization Address City/State/ZIP Code Phon e Number RADIOLOGY RESULTS documented in this encounter Visit Diagnoses Not on filedocumented in this encounter
--- OUTSIDE RECORDS SUMMARY | 2022-08-23 08:26 | XMS_ITS | Encounter Summary ---
:1985 Author Organization [place] Address [address] [place] [address]. [place] [address] Care Team Providers Name Role Phone Unavailable Primary Care Provider Unavailable Encounter Details Date Type Department Care Team Description 11/10/2007 Historic Results INTERFACED REPORT Tobi Kirkpatrick [address] [place] [address] Social History Tobacco Use Types Packs/Day Years Used Date Smoking Tobacco: Never Assessed Sex Assigned at Date Recorded Not on file documented as of this encounter Plan of Treatment Not on filedocumented as of this encounter Procedures Procedure Name Priority Date/Time Associated Comments Diagnosis LAMOTRIGINE LEVEL STAT 11/10/2007 2:42 PM Resu lts for this MISSION ASSESSMENT SPECIALIST procedure are i n the results section. BASIC METABOLIC PANEL STAT 11/10/2007 2:42 PM Results for this MISSION ASSESSMENT SPECIALIST procedure are i n the results section. HCG QUALITATIVE URINE STAT 11/10/2007 2:30 PM Results for this MISSION ASSESSMENT SPECIALIST procedure are i n the results section. documented in this encounter Results Basic metabolic panel (11/10/2007 2:42 PM MISSION ASSESSMENT SPECIALIST) P athologist Signature Sodium 139 133 - [...] Volume Laterality 11/10/2007 2:42 PM 8 2:23 MISSION ASSESSMENT SPECIALIST PM MISSION ASSESSMENT SPECIALIST Antonio Kirkpatrick LAB - BLOOD ORDERABLES Performing Organization Address [facility] Phon e Number MISYS Lamotrigine level (11/10/2007 2:42 PM MISSION ASSESSMENT SPECIALIST) athologist Signature Lamotrigine 2.8 MISYS Level Comment: Reference range: 2.0 ??to ??20.0 Unit: ug/ml (Note) CURRENT CLINICAL INFORMATION SUGGESTS TH E RECOMMENDED CONCENTRATIONS FOR LAMOTRIGINE DURING CH RONIC THERAPY ARE 2 - 20 ug/ml. LAMOTRIGINE ANALYSIS PERFORMED BY HIGH P ERFORMANCE LIQUID CHROMATOGRAPHY (HPLC). Analysis performed by [employer] [place] [address] Specimen Anatomical Collection Method Collection Time Receive d Time (Source) Location / / Volume Laterality 11/10/2007 2:42 PM 8 2:23 MISSION ASSESSMENT SPECIALIST PM MISSION ASSESSMENT SPECIALIST Antonio Kirkpatrick LAB - BLOOD ORDERABLES Performing Organization Address [facility] Phon e Number MISYS HCG qualitative urine (11/10/2007 2:30 PM MISSION ASSESSMENT SPECIALIST) athologist Signature HCG Qual Urine Negative NEG MISYS Specimen Anatomical Collection Method Collection Time Receive d Time (Source) Location / / Volume Laterality 11/10/2007 2:30 PM 8 2:23 MISSION ASSESSMENT SPECIALIST PM MISSION ASSESSMENT SPECIALIST Antonio Kirkpatrick LAB - URINE ORDERABLES Performing Organization Address [facility] Phon e Number MISYS documented in this encounter Visit Diagnoses Not on filedocumented in this encounter
--- OUTSIDE RECORDS SUMMARY | 2022-08-23 08:26 | XMS_ITS | Encounter Summary ---
:1985 Author Organization [place] Address [address] [place] [address]. [place] [address] Care Team Providers Name Role Phone Unavailable Primary Care Provider Unavailable Encounter Details Date Type Department Care Team Description 11/10/2007 Emergency room Casimiro Antonio Lopez [address] [place] [address] Social History Tobacco Use Types Packs/Day Years Used Date Smoking Tobacco: Never Assessed Sex Assigned at Date Recorded Not on file documented as of this encounter Progress Notes Interface, Commercial Lines Insurance Agent - 11/11/2007 3:54 PM DATA SME FINAL CHIEF COMPLAINT: I had a seizure. HISTORY OF PRESENT ILLNESS: A 22-year-old female with history of seizure disorder presents with [facility] for evaluation of seizure. The [...] MD MT: MARIO#[id number] Name: TRINITY AYALA Account: [id number] : 1985 Visit Date: 11/10/2007 Document: [id number] cc: Eli INMAN SME documented in this encounter Plan of Treatment Not on filedocumented as of this encounter Visit Diagnoses Not on filedocumented in this encounter
--- OUTSIDE RECORDS SUMMARY | 2022-08-23 08:26 | XMS_ITS | Encounter Summary ---
:1985 Author Organization [place] Address [address] [place] [address] Care Team Providers Name Role Phone Unavailable Primary Care Provider Unavailable Encounter Details Date Type Department Care Team Description 10/13/2007 Historic Results INTERFACED REPORT Tobi Kirkpatrick [address] [place] [address] Social History Tobacco Use Types Packs/Day Years Used Date Smoking Tobacco: Never Assessed Sex Assigned at Date Recorded Not on file documented as of this encounter Plan of Treatment Not on filedocumented as of this encounter Procedures Procedure Name Priority Date/Time Associated Comments Diagnosis HCG QUALITATIVE URINE STAT 10/13/2007 1:34 AM Results for this AGRICULTURAL ENGINEERING TECHNOLOGIST procedure are i n the results section. ROUTINE UA WITH Routine 10/13/2007 1:34 AM Result s for this MICROSCOPIC AGRICULTURAL ENGINEERING TECHNOLOGIST procedure are i n the results section. documented in this encounter Results HCG qualitative urine (10/13/2007 1:34 AM AGRICULTURAL ENGINEERING TECHNOLOGIST) athologist Signature HCG Qual Urine Negative NEG MISYS Specimen Anatomical Collection Method Collection Time Receive d Time (Source) Location / / Volume Laterality 10/13/2007 1:34 AM 8 AGRICULTURAL ENGINEERING TECHNOLOGIST 12:50 AM AGRICULTURAL ENGINEERING TECHNOLOGIST Antonio Kirkpatrick LAB - URINE ORDERABLES Performing Organization Address City/State/ZIP Code Phon e Number MISYS (ABNORMAL) Routine UA with microscopic (10/13/2007 1:34 AM AGRICULTURAL ENGINEERING TECHNOLOGIST) Component Value Ref Test Analysis Performed At [facility] gist Range Method Time Signature Source Unspecified MISYS Urine Color Urine Yellow MISYS Appearance Urine Slightly Cloudy MISYS Glucose Urine Negative NEG MISYS mg/dL Bilirubin Urine Negative NEG MISYS Ketones Urine Negative NEG MISYS mg/dL Specific [place] 1.035 1.003 - MISYS Urine 1.035 Blood [...] Volume Laterality 10/13/2007 1:34 AM 8 3:36 AGRICULTURAL ENGINEERING TECHNOLOGIST AM AGRICULTURAL ENGINEERING TECHNOLOGIST Antonio Kirkpatrick LAB - URINE ORDERABLES Performing Organization Address City/State/ZIP Code Phon e Number MISYS documented in this encounter Visit Diagnoses Not on filedocumented in this encounter
--- OUTSIDE RECORDS SUMMARY | 2022-08-23 08:26 | XMS_ITS | Encounter Summary ---
:1985 Author Organization [place] Address [address] [place] [address]. [place] [address] Care Team Providers Name Role Phone [facility] Primary Care Provider [phone] Reason for Visit Auth/Cert - Closed Specialty Diagnoses / Procedures Referred By Contact Refer red To Contact Surgery Diagnoses Chronic Tonsilitis Rh Periop Services Procedures TONSILLECTOMY [address] [place], [place] [address] Phone: Fax: Referral ID Status Reason Start Date Expiration Date Visits Requ ested Visits Authorized [id number] Closed 1 1 Encounter Details Date Type Department Care Team Description 02/18/2013 Surgery [facility] Jacinta Loya MD Tonsillectomy PeriOp Services [facility] [address] [place] [address] [place] [address] [phone] (Wo rk) Surgery Details Date/Time Status Location [...] ML AT 2:10 PM TONSILLECTOMY DISCHARGE INSTRUCTIONS [facility], Akbar Guzman M.D. Phill Kahn M.D. [...] It is best to stay in the [facility] area for the two week healing [...] have any problems or questions, please call [phone], 24 hours a day. GENERAL ANESTHESIA OR [...] Component Value Ref Test Analysis Performed At [facility] Range Method Time Signature Copath Report Patient Name: TRINITY AYALA MR#: [id number] Specimen #: [id number] Collected: 02/18/2013 Received: 02/18/2013 Reported: 02/19/2013 16:17 [...] serial sections, no gross lesions are identified. ??Commercial Sales Director section is submitted in one cassette. B. ??The specimen, labeled left tonsil, consists of formal in-fixed morin to pink to hemorrhagic soft palatine tonsil measuring 2.5 cm x 1.5 cm x 1 cm. ??On serial sections, no gross lesions are identified. Commercial Sales Director section is submitted in one cassette. ??MGP/s g MICROSCOPIC: A. and B. ??Microscopic examination is performed. SA/andreea DT/02-19-13 TESTING LAB LOCATION: [facility] [address] [address] [place], [place] ??[address] COLLECTION SITE: Client: [facility] Location: RHOR (R) Specimen Anatomical Collection Method Collection Time Receive d Time (Source) Location / / Volume Laterality 02/18/2013 1:15 PM 3 1:45 CDT PM CDT Tomasz Loya MD LAB - BEAKER AP Performing Organization Address City/State/ZIP [facility] Phon e Number COPATH HCG qualitative urine (02/18/2013 10:10 AM CDT) P athologist Signature HCG Qual Urine Negative NEG [facility] Specimen Anatomical Collection Method Collection Time Receive d Time (Source) Location / / Volume Laterality Urine specimen URINE SPECIMEN / 02/18/2013 10:10 02/18 (specimen) Unknown AM CDT 10:23 AM CDT Allan Garrett MD LAB - URINE ORDERABLES Performing Organization Address City/[facility] Phon e Number [place] [address] [place] [place] [address] [facility] documented in this encounter Visit [...] Intra-procedure documented in this encounter Care Teams Mechanic Recovery Relationship Specialty Start Date End Date [facility] PCP - General 02/04/13 06/15/13 documented as of this encounter
--- OUTSIDE RECORDS SUMMARY | 2022-08-23 08:27 | XMS_ITS | Encounter Summary ---
:1985 Author Organization [facility] Address [address] [place] [address] Care Team Providers Name Role Phone Unavailable Primary Care Provider Unavailable Encounter Details Date Type Department Care Team Description 11/23/2020 Orders Only [facility] Colt Martinez, Pcp [address] [place] [address] Social History Tobacco Use Types Packs/Day Years [...] do you attend islam or Never 2021 zoroastrian services? Do you [...]
--- OUTSIDE RECORDS SUMMARY | 2022-08-23 08:27 | XMS_ITS | Encounter Summary ---
:1985 Author Organization [facility] Address [address] [place] [address] Care Team Providers Name Role Phone Unavailable Primary Care Provider Unavailable Encounter Details Date Type Department Care Team Description 08/07/2021 Clinical Communication Department of Neurology Rui Godinez, in Navya Bose M.D., M.P.H. [address] [place] [address] [place], [place] [phone] [address] Social History Tobacco Use Types Packs/Day [...] do you attend presybeterian or Never 2021 latter-day services? Do you [...] Wallis L.P.N. - 09/05/2021 8:42 AM SENIOR MEDICAL TECHNOLOGIST Portal message sent. OR MEDICAL TECHNOLOGIST Telephone Encounter - Sally Wallis L.P.N. - 08/16/2021 2:10 PM SENIOR MEDICAL TECHNOLOGIST Message left to return call. OR MEDICAL TECHNOLOGIST Telephone Encounter - Sally Wallis L.P.N. - [...]
--- OUTSIDE RECORDS SUMMARY | 2022-08-23 08:27 | XMS_ITS | Encounter Summary ---
:1985 Author Organization [facility] Address [address] [place] [address] Care Team Providers Name Role Phone Unavailable Primary Care Provider Unavailable Reason for Visit Reason Comments Med Refill Encounter Details Date Type Department Care Team Description 10/13/2021 Refill Department of Neurology in Rui Godinez M.D., Med Refill [place], [place] M.P.H. [address] [place] [address] [place] [address] [phone] (Wo rk) Social History Tobacco Use Types [...] do you attend protestant or Never 2021 congregational services? Do you [...] Karina Amanda M.D. - 10/16/2021 9:43 AM SEARCH AND RESCUE OFFICER I approved short term refills. Pt has only seen Neurology in our clinic. I will defer to your team for longer term refills or have her set up PCP in [place]. CH AND RESCUE OFFICER documented in this encounter Plan of Treatment Not on filedocumented as of this encounter Visit Diagnoses Not on filedocumented in this encounter
--- OUTSIDE RECORDS SUMMARY | 2022-08-23 08:27 | XMS_ITS | Encounter Summary ---
:1985 Author Organization [place] Address [address] [place] [address]. [place] [address] Care Team Providers Name Role Phone Unavailable Primary Care Provider Unavailable Encounter Details Date Type Department Care Team Description 09/25/2004 Emergency room Armando Dominique [place] [address] Social History Tobacco Use Types Packs/Day Years Used Date Smoking Tobacco: Never Assessed Sex Assigned at Date Recorded Not on file documented as of this encounter ED Notes Armando Dominique - 09/25/2004 12:00 AM INDUSTRIAL STAFF NURSE : 1985 CHIEF COMPLAINT: Abdominal pain. HISTORY [...] should be reviewed with the Sherita Gonzalez autocad technician by Monday, September 27, 2004. The patient is to contact Dr. Gonzáles sooner if she redevelops abdominal pain, with or without fever or vomiting. 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 [id number] ARMANDO DOMINIQUE MD MT: Document: [id number] [place], [place] Name: MR#: TRINITY RAMIREZ -89 EMERGENCY ROOM ENCOUNTER Page 3 of 2 LCN: ROSE DSC: 09/25/2004 [place], [place] Name: MR#: TRINITY RAMIREZ [id number] : Admit Date: Account #: 1985 09/25/2004 [id number] Doctor: ARMANDO DOMINIQUE MD EMERGENCY ROOM ENCOUNTER Page 1 of 2 documented in this encounter Plan of Treatment Not on filedocumented as of this encounter Visit Diagnoses Not on filedocumented in this encounter
--- OUTSIDE RECORDS SUMMARY | 2022-08-23 08:27 | XMS_ITS | Encounter Summary ---
:1987 Author Organization [facility] Address [address] [place] [address] Care Team Providers Name Role Phone Unavailable Primary Care Provider Unavailable Encounter Details Date Type Department Care Team Description 09/25/2004 Results Only [facility] Results Saad Dominique MD XXX [place] [address] Social History Tobacco Use Types Packs/Day Years Used Date Smoking Tobacco: Never Assessed Sex Assigned at Date Recorded Not on file documented as of this encounter Plan of Treatment Not on filedocumented as of this encounter Procedures Procedure Name Priority Date/Time Associated Diagnosis Comme nts HC CT ABDOMEN W/O Routine 09/25/2004 5:23 AM Resu lts for this CONTRAST CELL OPERATION SUPERVISOR procedure are i n the results section. documented in this encounter Results CT SCAN ABDOMEN (09/25/2004 5:23 AM CELL OPERATION SUPERVISOR) Anatomical Region Laterality Modality Other Specimen (Source) Anatomical Collection Method Collection Time Re ceived Time Location / / Volume Laterality 09/25/2004 5:23 AM CELL OPERATION SUPERVISOR Impressions 10/06/2004 2:45 AM CELL OPERATION SUPERVISOR CT ABDOMEN & PELVIS WITHOUT CONTRAST - [...]
--- OUTSIDE RECORDS SUMMARY | 2022-08-23 08:27 | XMS_ITS | Encounter Summary ---
:1985 Author Organization [facility] Address [address] [place] [address] Care Team Providers Name Role Phone Unavailable Primary Care Provider Unavailable Reason for Referral Outpatient (Routine) - Authorized Specialty Diagnoses / Procedures Referred By Contact Refer red To Contact Neurology Rui Godinez M.D ., M.P.H. 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 M.P.H. [address] [place] [address] Referral ID Status Reason Start Date Expiration Date Visits Requ ested Visits Authorized [id number] Closed 10/10/2020 10/10/2021 1 1 Encounter Details Date Type Department Care Team Description 11/08/2021 Telemedicine Department of Rui Godinez, Focal Comp tripp Partial Neurology in [place], M.P.H. Epilepsy Not [place], [place] [address] Intractable Without [address] [place], [place] [address] (HCC) [phone] Social History Tobacco Use Types [...] do you attend mormonism or Never 2021 lutheran services? Do you [...] Rui Godinez M.D., M.P.H. from [facility] to the patient in their home. [...] Simpson's in Dr. Barnhart up in the [facility]. Interested reader is directed to that note from 02/02/2019. She had not any seizures since I follow her here in [place] and it has been a year since [...] preparation, and the actual timeduring the video. 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
--- OUTSIDE RECORDS SUMMARY | 2022-08-23 08:27 | XMS_ITS | Clinical Summary ---
:1985 Author Organization [facility] Address [address] [place] [address] Care Team Providers Name Role Phone Unavailable Primary Care Provider Unavailable Source Comments Patient records contain information from all sites at [facility]. For routine questions regarding patient records, call [phone] during business hours, M-F 8:00 AM - 5:00 PM Central Time. Record requests for emergency care only can be directed to [phone] at any time.[facility] Allergies No known active allergies Medications Medication [...] Specialty Care Team Description 08/02/2022 Refill Neurology Riu Godinez M.D., M.P.H . Med Refill from [...] do you attend mormonism or Never 2021 holiness services? Do you [...] Comments Blood Pressure 116/74 08/25/2019 2:01 PM CYLINDER LOADER Pulse 76 08/25/2019 2:01 PM CYLINDER LOADER Temperature - - Respiratory Rate - - Oxygen Saturation - - Inhaled Oxygen Concentration - - Weight 84.2 kg (185 lb 10 oz) 08/25/2019 2:01 PM CYLINDER LOADER Height - - Body Mass Index - [...] ss Type Group BLUE CROSS ANTHEM BLUE [id number] 2018-Manuel [phone] PO KAREN X [id number] PPO [facility] ACCESS t [address] [place] [address]
--- OUTSIDE RECORDS SUMMARY | 2022-08-23 08:27 | XMS_ITS | Encounter Summary ---
:1985 Author Organization [facility] Address [address] [place] [address] Care Team Providers Name Role Phone Unavailable Primary Care Provider Unavailable Reason for Visit Reason Comments Med Refill Encounter Details Date Type Department Care Team Description 01/30/2021 Refill Department of Neurology in Rui Godinez M.D., Med Refill [place], [place] M.P.H. [address] [place] [address] [place] [address] [phone] (Wo rk) Social History Tobacco Use Types [...] do you attend advent or Never 2021 hinduism services? Do you [...]
--- OUTSIDE RECORDS SUMMARY | 2022-08-23 08:27 | XMS_ITS | Encounter Summary ---
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 [address] [place] [address] Referral ID Status Reason Start Date Expiration Date Visits Requ ested Visits Authorized [id number] Closed 10/10/2020 10/10/2021 1 1 L WINDOW FRAME MAKER Reason for Visit Outpatient (Routine) - Closed Specialty Diagnoses / Procedures Referred By Contact Refer red To Contact Neurology Rui Godinez M.D ., M.P.H. [facility] [address] [place] [address] Referral ID Status Reason Start Date Expiration Date Visits Requ ested Visits Authorized [id number] Closed 08/25/2019 08/24/2020 1 1 Encounter Details Date Type Department Care Team Description 10/10/2020 Telemedicine Department of Rui Godinez, Edgar Comp tripp Partial Neurology in [place] Bose, M.P .H. Epilepsy Not [place] [address] [place] [address] Intractable Without [address] [place], [place] [address] (HCC) (Primary Dx) [phone] Social History Tobacco [...] do you attend temple or Never 2021 denominational services? Do you [...] technology by Rui Godinez M.D., M.P.H. from [facility] to the patient in their home. Virtual visit between Dr. Godinez and Trinity. Trinity is a 35 y.o. female who agreed to a virtual visit. HISTORY OF PRESENT ILLNESS This patient is one whom I have seen in [facility] previously in addition to two prior visit here at [facility]. She remained seizure-free and side effect free previously she has delivered a child and a had been on folic acid 1 mg prescription but has now acquired [id number] folic acid she is taking that. She [...] lamotrigine as CIERA. I her child's night [id number] doing well. She has no concerns. The [...] preparation, and the actual timeduring the video. L WINDOW FRAME MAKER documented in this encounter Plan of [...]
--- OUTSIDE RECORDS SUMMARY | 2022-08-23 08:27 | XMS_ITS | Encounter Summary ---
:1985 Author Organization [facility] Address [address] [place] [address] Care Team Providers Name Role Phone Unavailable Primary Care Provider Unavailable Reason for Visit Reason Comments Med Refill Encounter Details Date Type Department Care Team Description 05/08/2021 Refill Department of Neurology in Rui Godinez M.D., Med Refill [place], [place] M.P.H. [address] [place] [address] [place] [address] [phone] (Wo rk) Social History Tobacco Use Types [...] do you attend moravian or Never 2021 anabaptist services? Do you [...]
--- OUTSIDE RECORDS SUMMARY | 2022-08-23 08:27 | XMS_ITS | Encounter Summary ---
:1985 Author Organization [facility] Address [address] [place] [address] Care Team Providers Name Role Phone Unavailable Primary Care Provider Unavailable Encounter Details Date Type Department Care Team Description 02/01/2021 Orders Only [facility] Sa rima Valentin M.D. [address] [place], [place] [phone] (Wo rk) Social History [...] do you attend hindu or Never 2021 yazidism services? Do you [...]
--- OUTSIDE RECORDS SUMMARY | 2022-08-23 08:27 | XMS_ITS | Encounter Summary ---
:1985 Author Organization [facility] Address [address] [place] [address] Care Team Providers Name Role Phone Unavailable Primary Care Provider Unavailable Encounter Details Date Type Department Care Team Description 03/29/2022 Orders Only Department of Sleep Rui Godinez Foca l Complex Partial Medicine in [place]aryn Gee, M.P .H. Epilepsy Not [place] [address] Intractable Without [address] [place], [place] Status Epilepticus [place] [address] (HCC) (Primary Dx) [phone] Social History Tobacco [...] do you attend sabianist or Never 2021 confucianism services? Do you belong to any clubs [...]
--- OUTSIDE RECORDS SUMMARY | 2022-08-23 08:27 | XMS_ITS | Encounter Summary ---
:1985 Author Organization [facility] Address [address] [place] [address] Care Team Providers Name Role Phone Unavailable Primary Care Provider Unavailable Reason for Visit Reason Comments Med Refill Encounter Details Date Type Department Care Team Description 08/08/2021 Refill Department of Neurology in Rui Godinez M.D., Med Refill [place], [place] M.P.H. [address] [place] [address] [place] [address] [phone] (Wo rk) Social History Tobacco Use Types [...] do you attend yarsanism or Never 2021 denominational services? Do you [...]
--- OUTSIDE RECORDS SUMMARY | 2022-08-23 08:27 | XMS_ITS | Encounter Summary ---
:1985 Author Organization [facility] Address [address] [place] [address] Care Team Providers Name Role Phone Unavailable Primary Care Provider Unavailable Reason for Visit Reason Comments Med Refill Encounter Details Date Type Department Care Team Description 08/02/2022 Refill Department of Neurology in Rui Godinez M.D., Med Refill [place], [place] M.P.H. [address] [place] [address] [place] [address] [phone] (Wo rk) Social History Tobacco Use Types [...] do you attend gnosticism or Never 2021 zoroastrian services? Do you [...]
--- OUTSIDE RECORDS SUMMARY | 2022-08-23 08:27 | XMS_ITS | Encounter Summary ---
:1985 Author Organization [facility] Address [address] [place] [address] Care Team Providers Name Role Phone Unavailable Primary Care Provider Unavailable Reason for Visit Reason Comments Med Refill Encounter Details Date Type Department Care Team Description 10/27/2020 Refill Department of Neurology in Rui Godinez M.D., Med Refill [place], [place] M.P.H. [address] [place] [address] [place] [address] [phone] (Wo rk) Social History Tobacco Use Types [...] do you attend yarsani or Never 2021 confucianism services? Do you [...]
--- OUTSIDE RECORDS SUMMARY | 2022-08-23 08:28 | XMS_ITS | Encounter Summary ---
:1985 Author Organization [facility] Address [address] [place] [address] Care Team Providers Name Role Phone Unavailable Primary Care Provider Unavailable Reason for Referral Outpatient (Routine) - Closed Specialty Diagnoses / Procedures Referred By Contact Refer red To Contact Neurology Rui Godinez M.D ., M.P.H. [facility] [address] [address] Referral ID Status Reason Start Date Expiration Date Visits Requ ested Visits Authorized [id number] Closed 08/25/2019 08/24/2020 1 1 ING TUBE SELECTOR Reason for Visit Reason Comments Seizures Outpatient (Routine) - Closed Specialty Diagnoses / Procedures Referred By Contact Refer red To Contact Neurology Rui Godinez M.D ., M.P.H. [facility] [address] [place] [address] Referral ID Status Reason Start Date Expiration Date Visits Requ ested Visits Authorized [id number] Closed 02/02/2019 02/02/2020 1 1 Encounter Details Date Type Department Care Team Description 08/25/2019 Office Visit Department of Rui Godinez, Focal Comp tripp Partial Neurology in [place] Bose, M.P .H. Epilepsy Not [place] [address] [place] [address] Intractable Without [address] [place], [place] Status Epilepticus [facility] [place] [address] ([facility]LY [facility]) (Primary Dx) [phone] Social History Tobacco Use Types Packs/Day Years [...] highest level of school Associate degree: [employer] program 08/25/2019 you have completed or the highest degree you have received? Sex Assigned at Date Recorded Female 02/02/2019 3:06 PM CDT documented as of this encounter Last Filed Vital Signs Vital Sign Reading Time Taken Comments Blood Pressure 116/74 08/25/2019 2:01 PM FORMING TUBE SELECTOR Pulse 76 08/25/2019 2:01 PM FORMING TUBE SELECTOR Temperature - - Respiratory Rate - - Oxygen Saturation - - Inhaled Oxygen Concentration - - Weight 84.2 kg (185 lb 10 oz) 08/25/2019 2:01 PM FORMING TUBE SELECTOR Height - - Body Mass Index - [...] the her prior neurologist up in the [facility] who had evaluated her with neuro imaging [...] More than three times a week Attends mandaeism service: Never Active member of club or [...] Alert and oriented x 4. CRANIAL NERVES: patient scheduler II-XII intact and symmetric. No diplopia or [...] half was counseling. Rui Godinez M.D., M.P.H. ING TUBE SELECTOR documented in this encounter Plan of Treatment Scheduled Referrals Name Type Priority Associated Diagnoses Order S [facility] Neurology office Outpatient Referral Routine Expe cted: visit (clinic) 08/25/2020 (Approximate), Expires: 08/25/2022 documented as of this encounter Visit Diagnoses Diagnosis Focal Complex Partial Epilepsy Not Intra ctable Without Status Epilepticus (HCC) - Primary documented in this encounter
--- OUTSIDE RECORDS SUMMARY | 2022-08-23 08:28 | XMS_ITS | Encounter Summary ---
:1985 Author Organization [facility] Address [address] [place] [address] Care Team Providers Name Role Phone Unavailable Primary Care Provider Unavailable Reason for Visit Reason Onset Date Comments Medical Information 11/18/2018 Encounter Details Date Type Department Care Team Description 11/18/2018 Clinical Department of Francisca Godinez Medical Communication Family MedicineKassy M.D. Information [facility], [address] in [facility] [address] [place] [address] [place], [place] (Work) [phone] Social History Tobacco Use [...] do you attend christian or Never 2021 buddhist services? Do you [...] Sally Wallis L.P.N. - 11/18/2018 2:40 PM DISTANCE EDUCATION TEACHER [place] notes are under Document Viewer. ANCE EDUCATION TEACHER Telephone Encounter - Vincenzo Spivey - 11/18/2018 11:28 AM CST Reason for Communication: [facility] in [place] called and they need a prior Authorization for the medication, Tarsha please advise. Current Can Nursing/Provider leave a detailed message: Did the patient refuse triage through Nurse line? (for symptom based concerns) Action Needed: Name of Medication (if relevant): tarsha ANCE EDUCATION TEACHER documented in this encounter Plan of Treatment Not on filedocumented as of this encounter Visit Diagnoses Not on filedocumented in this encounter
--- OUTSIDE RECORDS SUMMARY | 2022-08-23 08:28 | XMS_ITS | Encounter Summary ---
:1985 Author Organization [facility] Address [address] [place] [address] Care Team Providers Name Role Phone Unavailable Primary Care Provider Unavailable Encounter Details Date Type Department Care Team Description 11/29/2018 Orders Only [facility] Humaira Beltran [address] [place] [address] Social History Tobacco Use Types [...] do you attend caodaism or Never 2021 confucianist services? Do you [...]
--- OUTSIDE RECORDS SUMMARY | 2022-08-23 08:28 | XMS_ITS | Encounter Summary ---
:1985 Author Organization [facility] Address [address] [place] [address] Care Team Providers Name Role Phone Unavailable Primary Care Provider Unavailable Reason for Visit Reason Onset Date Comments Neurology Suggestions 01/06/2019 Encounter Details Date Type Department Care Team Description 01/06/2019 Clinical Communication Department of Rui Godinez Neurology in [place]aryn Kaplan, Suggestions Eduardo Gee. [place] [id number] [address] Social History Tobacco Use [...] do you attend rastafari or Never 2021 hindu services? Do you [...] AM CDT Lets get her in to [place] Telephone Encounter - Sally Wallis L.P.N. - 01/06/2019 1:52 PM CDT Spoke to Trinity. Patient's delivery date is 02/28/19. Since patient is not able to get in to see you before delivery date OB Gia Kirkland at [facility] would like for you to touch base with her in regards to how much seizure medication - increase/decrease. Labs and what to do after delivery. Telephone Encounter - Diana Candelario - 01/06/2019 1:33 PM CDT Patient returning phone call. Please advise. Ok to leave a detailed VM. Call back at [phone] Telephone Encounter - Sally Wallis L.P.N. - 01/06/2019 10:46 AM CDT Attempted to contact patient. Patient has been seen in [place] for seizures. At this time there is [...]
--- OUTSIDE RECORDS SUMMARY | 2022-08-23 08:28 | XMS_ITS | Encounter Summary ---
:1985 Author Organization [facility] Address [address] [place] [address] Care Team Providers Name Role Phone Unavailable Primary Care Provider Unavailable Encounter Details Date Type Department Care Team Description 12/24/2019 Orders Only [facility] Trinity Brink [address] [facility] [phone] (W ork) [address] [place] [address] Social History Tobacco Use [...] do you attend religion or Never 2021 taoist services? Do you [...]
--- OUTSIDE RECORDS SUMMARY | 2022-08-23 08:28 | XMS_ITS | Encounter Summary ---
:1985 Author Organization [facility] Address [address] [place] [address] Care Team Providers Name Role Phone Unavailable Primary Care Provider Unavailable Reason for Visit Reason Comments Med Refill Encounter Details Date Type Department Care Team Description 09/28/2020 Refill Department of Neurology in Rui Godinez M.D., Med Refill [place], [place] M.P.H. [address] [place] [address] [place] [address] [phone] (Wo rk) Social History Tobacco Use Types [...] do you attend sabianism or Never 2021 advent services? Do you belong to any clubs [...] the highest level of school Associate degree: [employer] program 08/25/2019 you have completed or the highest degree you have received? Sex Assigned at Date Recorded Female 02/02/2019 3:06 PM CDT documented as of this encounter Plan of Treatment Not on filedocumented as of this encounter Visit Diagnoses Not on filedocumented in this encounter
--- OUTSIDE RECORDS SUMMARY | 2022-08-23 08:28 | XMS_ITS | Encounter Summary ---
:1985 Author Organization [facility] Address [address] [place] [address] Care Team Providers Name Role Phone Unavailable Primary Care Provider Unavailable Reason for Visit Reason Onset Date Comments Med Refill 11/26/2019 Encounter Details Date Type Department Care Team Description 11/26/2019 Clinical Communication Department of Sleep Rui Godinez, Med Refill Medicine in [place]aryn Gee, M.P .H. [place] [address] [place] [address] Social History Tobacco Use Types Packs/Day Years [...] do you attend denominational or Never 2021 denominational services? Do you [...] or slept in a half-way (including now)? Education Answer Date Recorded What is the highest level of school Associate degree: [employer] program 08/25/2019 you have completed or the highest degree you have received? Sex Assigned at Date Recorded Female 02/02/2019 3:06 PM CDT documented as of this encounter Miscellaneous Notes Telephone Encounter - Diana Candelario - 11/26/2019 8:16 AM CST Name of Medication: Lamotrigine Primary Provider: Rui Godinez M.D. Strength: 200 mg Frequency: Take 1 tablet twice a day Pharmacy (include location): [facility] in [place] [phone] ET SUPERVISOR documented in this encounter Plan of Treatment Not on filedocumented as of this encounter Visit Diagnoses Not on filedocumented in this encounter
--- OUTSIDE RECORDS SUMMARY | 2022-08-23 08:28 | XMS_ITS | Encounter Summary ---
:1985 Author Organization [facility] Address [address] [place] [address] Care Team Providers Name Role Phone Unavailable Primary Care Provider Unavailable Reason for Visit Reason Comments Med Refill Encounter Details Date Type Department Care Team Description 02/18/2019 Refill Department of Josi Quach A PRN, Med Refill Medicine, [facility], in [place], [place] [address] [facility] [address] [place] [address] [place] [address] [phone] Social History Tobacco Use Types Packs/Day Years [...] or relatives? How often do you attend pentecostal or Never 2021 hindu services? Do you belong to any clubs or No 11/08/2021 organizations such as pentecostal groups, unions, fraternal or athletic groups, or [...] slept in a group home (including now)? Sex Assigned at Date [...] R.M.A. - 02/18/2019 4:[address] oYmi Godinez prescribed. Telephone Encounter - Mely Bob - 02/18/2019 8:55 AM CDT Nurse Review: Pharmacy Communication Provider: No primary care provider on file. Medication: Lamictal Strength: 200 mg tab Frequency: Take 2 tablets by mouth twice daily [place] Pharmacy Comment: now 8 tabs 10 mg per patient documented in this encounter Plan of Treatment Not on filedocumented as of this encounter Visit Diagnoses Not on filedocumented in this encounter
--- OUTSIDE RECORDS SUMMARY | 2022-08-23 08:28 | XMS_ITS | Encounter Summary ---
:1985 Author Organization [facility] Address [address] [place] [address] Care Team Providers Name Role Phone Unavailable Primary Care Provider Unavailable Encounter Details Date Type Department Care Team Description 08/06/2019 Clinical Communication Department of Sleep Rui Godinez, Medicine in [place]aryn Gee, M.P .H. [place] [address] [place] [address] Social History Tobacco Use Types Packs/Day [...] do you attend lutheran or Never 2021 judaism services? Do you belong to any clubs [...]
--- OUTSIDE RECORDS SUMMARY | 2022-08-23 08:28 | XMS_ITS | Encounter Summary ---
:1985 Author Organization [facility] Address [address] [place] [address] Care Team Providers Name Role Phone Unavailable Primary Care Provider Unavailable Reason for Visit Reason Onset Date Comments pharm calling for dosage verification 12/01/2019 Encounter Details Date Type Department Care Team Description 12/01/2019 Clinical Communication Department of Rui Godinez calling for Neurology in Karyn Kaplan, dosage verifica Tereso FitzgeraldPShaista [place] [id number] [phone] Social History Tobacco Use Types Packs/Day [...] you attend latter day or Never 2021 baptism services? Do you [...] the highest level of school Associate degree: [employer] program 08/25/2019 you have completed or the highest degree you have received? Sex Assigned at Date Recorded Female 02/02/2019 3:06 PM CDT documented as of this encounter Miscellaneous Notes Telephone Encounter - Nivia Beasley - 12/01/2019 8:50 AM CST Reason for Communication: [facility] in [place] called to verify dosage of Lamictal. Current Can Nursing/Provider leave a detailed message: Did the patient refuse triage through Nurse line? (for symptom based concerns): Action Needed: please call Name of Medication (if relevant): HOCKEY COACH documented in this encounter Plan of Treatment Not on filedocumented as of this encounter Visit Diagnoses Not on filedocumented in this encounter
--- OUTSIDE RECORDS SUMMARY | 2022-08-23 08:28 | XMS_ITS | Encounter Summary ---
:1985 Author Organization [facility] Address [address] [place] [address] Care Team Providers Name Role Phone Unavailable Primary Care Provider Unavailable Encounter Details Date Type Department Care Team Description 12/22/2019 Refill Department of Sleep Medicine in Rui Godinez M.D., [place], [place] M.P.H. [address] [place] [address] [place] [address] (Wo rk) Social History Tobacco [...] do you attend episcopalian or Never 2021 jainism services? Do you [...] level of school Associate degree: [employer] program 08/25/2019 you have completed or the highest degree you have received? Sex Assigned at Date Recorded Female 02/02/2019 3:06 PM CDT documented as of this encounter Plan of Treatment Not on filedocumented as of this encounter Visit Diagnoses Not on filedocumented in this encounter
--- OUTSIDE RECORDS SUMMARY | 2022-08-23 08:28 | XMS_ITS | Encounter Summary ---
:1985 Author Organization [facility] Address [address] [place] [address] Care Team Providers Name Role Phone Unavailable Primary Care Provider Unavailable Encounter Details Date Type Department Care Team Description 11/14/2018 Orders Only [facility] - Humaira Beltran [address] [place] [address] Social History Tobacco Use Types [...] do you attend buddhism or Never 2021 druze services? Do you [...]
--- OUTSIDE RECORDS SUMMARY | 2022-08-23 08:28 | XMS_ITS | Encounter Summary ---
:1985 Author Organization [facility] Address [address] [place] [address] Care Team Providers Name Role Phone Unavailable Primary Care Provider Unavailable Encounter Details Date Type Department Care Team Description 12/24/2019 Clinical Communication Department of Sleep Rui Godinez, Medicine in Karyn eGe, M.P .H. [place] [address] [place] [phone] Social History Tobacco Use Types Packs/Day [...] do you attend anglican or Never 2021 congregational services? Do you [...] the highest level of school Associate degree: [employer] program 08/25/2019 you have [...] CDT Reason for Communication: Keep entering Lamo [id number] mg And the patient doesn't want this. She wants the generic and then she wants the brand name. Pharmacist would like a call to talk about the situation. Current Can Nursing/Provider leave a detailed message: Did the patient refuse triage through Nurse line? (for symptom based concerns): Action Needed: [facility] Name of Medication (if relevant): Lamo TRIgine documented in this encounter Plan of Treatment Not on filedocumented as of this encounter Visit Diagnoses Not on filedocumented in this encounter
--- OUTSIDE RECORDS SUMMARY | 2022-08-23 08:28 | XMS_ITS | Encounter Summary ---
:1985 Author Organization [facility] Address [address] [place] [address] Care Team Providers Name Role Phone Unavailable Primary Care Provider Unavailable Encounter Details Date Type Department Care Team Description 11/20/2018 Clinical Communication Department of Sally Wallis Neurology in [place], [place] [address] [phone] Social History Tobacco Use Types Packs/Day Years [...] do you attend shinto or Never 2021 catholic services? Do you [...] Sally Wallis L.P.N. - 11/20/2018 9:07 AM NETWORK SYSTEMS OPERATOR Contacted patient. This message is in reference to the message on 11/18/18. Received call from Mary REV CYCLE ACCT RESP. Phone number [phone] that call has been placed to see what the status was on Levetiracetam. The cost is $2000.00 . This is a out- of - pocket expense not a co-pay. Therefore there is nothing further that can be done to lower the cost. Patient has been made aware of this. ORK SYSTEMS OPERATOR documented in this encounter Plan of Treatment Not on filedocumented as of this encounter Visit Diagnoses Not on filedocumented in this encounter
--- OUTSIDE RECORDS SUMMARY | 2022-08-23 08:28 | XMS_ITS | Encounter Summary ---
:1985 Author Organization [facility] Address [address] [place] [address] Care Team Providers Name Role Phone Unavailable Primary Care Provider Unavailable Reason for Visit Reason Onset Date Comments Rx issues 11/18/2018 Encounter Details Date Type Department Care Team Description 11/18/2018 Clinical Communication Department of Neurology Rui Godinez, Rx issues in [facility] kandis Boss, M.P.H. [address] [place] [address] [address] [phone] Social History Tobacco Use [...] do you attend moravian or Never 2021 hindu services? Do you [...] Dena Mendiola L.P.N. - 11/18/2018 10:55 AM EXTERMINATOR I called [facility], She is needing refills [...] informed that Dr. Godinez recommends meeting with Ms Access Database Developer and Pharmacist to see if help can be obtained for the high out of pocket cost. Patient agrees to this. RMINATOR Telephone Encounter - Sally Wallis L.P.N. - 11/18/2018 10:13 AM EXTERMINATOR Contacted [facility]. Informed that I called the number provided for prior auth exception request form at . Forms had been faxed on 10/21/18. Was told to refax and put urgent on the request. Fax to . RMINATOR Telephone Encounter - Zahra Perez - 11/18/2018 7:32 AM CST Patient calling regarding Rx has to be a name brand. Please call back [phone] RMINATOR documented in this encounter Plan of Treatment Not on filedocumented as of this encounter Visit Diagnoses Diagnosis Seizure (HCC) - Primary documented in this encounter
--- OUTSIDE RECORDS SUMMARY | 2022-08-23 08:28 | XMS_ITS | Encounter Summary ---
:1985 Author Organization [facility] Address [address] [place] [address] Care Team Providers Name Role Phone Unavailable Primary Care Provider Unavailable Reason for Visit Reason Onset Date Comments Rx Prior Authorization 10/22/2018 Lamictal Encounter Details Date Type Department Care Team Description 10/22/2018 Clinical Department of Angelica Wallis Prior Communication Neurology in Sally Elena, Authorization Lindsay Gee (Lamictal) [place] [address] [place] [phone] [phone] Social History Tobacco Use Types Packs/Day Years [...] or relatives? How often do you attend sikhism or Never 2021 presybeterian services? Do you belong to any clubs or No 11/08/2021 organizations such as sikhism groups, unions, fraternal or athletic groups, or [...] Sally Wallis L.PRonen. - 10/22/2018 4:12 PM ENGINEERING INSPECTOR Patient states she has faxed the form to Dr. Godinez. She also provided the phone number that Dr. Godinez or a nurse needs to call. , department [facility] [employer]. Please advise Form has been completed and faxed to . NEERING INSPECTOR documented in this encounter Plan of Treatment Not on filedocumented as of this encounter Visit Diagnoses Not on filedocumented in this encounter
--- OUTSIDE RECORDS SUMMARY | 2022-08-23 08:28 | XMS_ITS | Encounter Summary ---
:1985 Author Organization [facility] Address [address] [place] [address] Care Team Providers Name Role Phone Unavailable Primary Care Provider Unavailable Encounter Details Date Type Department Care Team Description 10/22/2018 Clinical Communication Department of Internal Kassy Godinez, Medicine in Karyn Bose, M.P. H. [place] [address] [place] [phone] Social History Tobacco Use Types Packs/Day Years [...] do you attend scientologist or Never 2021 scientology services? Do you [...]
--- OUTSIDE RECORDS SUMMARY | 2022-08-23 08:28 | XMS_ITS | Encounter Summary ---
:1985 Author Organization [facility] Address [address] [place] [address] Care Team Providers Name Role Phone Unavailable Primary Care Provider Unavailable Encounter Details Date Type Department Care Team Description 02/18/2019 Clinical Communication Department of Rui Sommers, Medicine, Lidya Boss, M.P.H. [facility], [address] [place], [place] [address] [address] [place] [address] [facility] [phone] Social History Tobacco Use Types Packs/Day Years [...] do you attend anabaptism or Never 2021 orthodoxy services? Do you [...]
--- OUTSIDE RECORDS SUMMARY | 2022-08-23 08:28 | XMS_ITS | Encounter Summary ---
:1985 Author Organization [facility] Address [address] [place] [address] Care Team Providers Name Role Phone Unavailable Primary Care Provider Unavailable Encounter Details Date Type Department Care Team Description 12/22/2019 Clinical Communication Department of Sleep Rui Godinez, Medicine in Karyn Gee, M.P .H. [place] [address] [place] [phone] Social History Tobacco Use Types Packs/Day [...] or relatives? How often do you attend zoroastrianism or Never 2021 restorationism services? Do you belong to any clubs or No 11/08/2021 organizations such as zoroastrianism groups, unions, fraternal or athletic groups, or [...] - 12/25/2019 2:47 PM CDT Spoke with [facility] in [place] regarding patient's prescription for lamotrigine. The newest [...] in regards to her generic script. Stating [facility] has not received it. Patient will be calling [employer], again. Current Can Nursing/Provider leave a detailed message: Action Needed: Please review and advise. Name of Medication (if relevant): Telephone Encounter - Dena Mendiola LMichaelPMichaelNMichael - 12/23/2019 10:28 AM CDT Patient is requesting the following information: New rx for Lamictal in generic form to be sent to [facility] in [place] PLAN The following information was provided : [...] generic of this medication over to the [facility] pharmacy in [place] instead. Please advise. Current Can Nursing/Provider leave a detailed message: Did the patient refuse triage through Nurse line? (for symptom based concerns): Action Needed: Send generic to [facility] in [place] Name of Medication (if relevant): Lamictal (Generic form) documented in this encounter Plan of Treatment Not on filedocumented as of this encounter Visit Diagnoses Not on filedocumented in this encounter
--- OUTSIDE RECORDS SUMMARY | 2022-08-23 08:28 | XMS_ITS | Encounter Summary ---
:1985 Author Organization [facility] Address [address] [place] [address] Care Team Providers Name Role Phone Unavailable Primary Care Provider Unavailable Reason for Visit Reason Onset Date Comments Med Refill 11/26/2019 Encounter Details Date Type Department Care Team Description 11/26/2019 Refill Department of Sleep Medicine in Rui Godinez M.D., Med Refill [place], [place] M.P.H. [address] [place] [address] [place] [address] (Wo rk) Social History Tobacco [...] do you attend denominational or Never 2021 yazdanism services? Do you [...] the highest level of school Associate degree: [employer] program 08/25/2019 you have completed or the highest degree you have received? Sex Assigned at Date Recorded Female 02/02/2019 3:06 PM CDT documented as of this encounter Miscellaneous Notes Telephone Encounter - Sally Wallis L.P.N. - 11/26/2019 11:22 AM JOB TRACER Contacted patient. Confirmed with patient Directions for Lamictal. Stated that she is taking Lamictal 200 mg one tablet two times a day. TRACER Telephone Encounter - Liz Crockett - 11/26/2019 8:54 AM CST Images from the original note were not included. Name of Medication: Lamotrigine ?? Primary Provider: Rui Godinez M.D. ?? Strength: 200 mg ?? Frequency: Take 1 tablet twice a day ?? Pharmacy (include location): [facility] [phone] ?? Documentation TRACER documented in this encounter Plan of Treatment Not on filedocumented as of this encounter Visit Diagnoses Not on filedocumented in this encounter
--- OUTSIDE RECORDS SUMMARY | 2022-08-23 08:28 | XMS_ITS | Encounter Summary ---
:1985 Author Organization [facility] Address [address] [place] [address] Care Team Providers Name Role Phone Unavailable Primary Care Provider Unavailable Encounter Details Date Type Department Care Team Description 12/23/2019 Clinical Communication Department of Neurology Rui Godinez, in [facility] kandis Boss, M.P.H. [address] [place] [address] [address], [place] [phone] Social History Tobacco Use [...] do you attend adventist or Never 2021 islam services? Do you [...] slept in a long term (including now)? Education Answer Date Recorded What is the highest level of school Associate degree: [employer] 08/25/2019 you have completed or the highest degree you have received? Sex Assigned at Date Recorded Female 02/02/2019 3:06 PM CDT documented as of this encounter Plan of Treatment Not on filedocumented as of this encounter Visit Diagnoses Not on filedocumented in this encounter
--- OUTSIDE RECORDS SUMMARY | 2022-08-23 08:28 | XMS_ITS | Encounter Summary ---
:1985 Author Organization [facility] Address [address] [place] [address] Care Team Providers Name Role Phone Unavailable Primary Care Provider Unavailable Encounter Details Date Type Department Care Team Description 02/19/2019 Orders Only Department of Neurology in Rui Godinez M.D., [place], [place] M.P.H. [address] [place] [address] [address] [place] [address] [place], [place] [phone] (Wo rk) Social History Tobacco Use [...] do you attend hinduism or Never 2021 methodist services? Do you [...]
--- OUTSIDE RECORDS SUMMARY | 2022-08-23 08:28 | XMS_ITS | Encounter Summary ---
:1985 Author Organization [facility] Address [address] [place] [address] Care Team Providers Name Role Phone Unavailable Primary Care Provider Unavailable Reason for Referral Outpatient (Routine) - Closed Specialty Diagnoses / Procedures Referred By Contact Refer red To Contact Neurology Rui Godinez M.D ., M.P.H. [facility] [address] [place] [address] Referral ID Status Reason Start Date Expiration Date Visits Requ ested Visits Authorized [id number] Closed 02/02/2019 02/02/2020 1 1 Reason for Visit Reason Comments Seizures Follow-up Appointment Request (Routine) - Closed Specialty Diagnoses / Procedures Referred By Contact Refer red To Contact Neurology Referral ID Status Reason Start Date Expiration Date Visits Requ ested Visits Authorized [id number] Closed 01/07/2019 01/07/2020 1 Encounter Details Date Type Department Care Team Description 02/02/2019 Comprehensive Visit Department of Rui Godinez 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 [address] [facility] [address] [place], [place] [phone] Social History Tobacco Use Types Packs/Day [...] do you attend druze or Never 2021 uatsdin services? Do you belong to any clubs [...] is known to me from visits in [facility] where she was planning to become . [...] from 01/17/2018 was 12 with a range [id number] and lamotrigine serum concentration was 4.8 with a range being 2.5-15 and [facility] I gave her handout from [facility] on in epilepsy as she contemplating having her Mirena IUD removed and to become . She was on Keppra 1000 mg b.i.d. and lamotrigine 200 mg b.i.d.. At today's visit she remains on 1000 mg of levetiracetam and is on 400 mg b.i.d. of lamotrigine or twice the previous dose. Her lamotrigine serum concentration was checked on January 26 at [facility] in level was 8.4 micro g per [...] Alert and oriented x 4. CRANIAL NERVES: quality control engineer II-XII intact and symmetric. MOTOR: Full strength [...] be cut back to pre doses. The [place] epilepsy Society recommends breast-feeding for women even [...] Name Type Priority Associated Diagnoses Order 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
--- OUTSIDE RECORDS SUMMARY | 2022-08-23 08:28 | XMS_ITS | Encounter Summary ---
:1985 Author Organization [facility] Address [address] [place] [address] Care Team Providers Name Role Phone Unavailable Primary Care Provider Unavailable Encounter Details Date Type Department Care Team Description 11/14/2018 Clinical Communication Department of Neurology Rui Godinez, in [facility] kandis Boss, M.P.H. [address] [place] [address] [address], [place] [phone] Social History Tobacco Use Types Packs/Day [...] do you attend voodoo or Never 2021 evangelical services? Do you [...] Dena Mendiola L.P.N. - 11/18/2018 11:02 AM TRASH COLLECTOR TRUCK DRIVER See next message. H COLLECTOR TRUCK DRIVER Telephone Encounter - Dena Mendiola L.P.N. - 11/17/2018 10:12 AM TRASH COLLECTOR TRUCK DRIVER Left message to call back. H COLLECTOR TRUCK DRIVER Telephone Encounter - Golden Arreola - 11/14/2018 [...] Needed: Name of Medication (if relevant): Acetazolamide H COLLECTOR TRUCK DRIVER documented in this encounter Plan of Treatment Not on filedocumented as of this encounter Visit Diagnoses Not on filedocumented in this encounter
--- OUTSIDE RECORDS SUMMARY | 2022-08-23 08:29 | XMS_ITS | Encounter Summary ---
:1985 Author Organization [facility] Address [address] [place] [address] Care Team Providers Name Role Phone Unavailable Primary Care Provider Unavailable Encounter Details Date Type Department Care Team Description 10/20/2018 Clinical Communication Department of Dena Mendiola Neurology in [place], [place] [address] [place] [phone] Social History Tobacco Use [...] do you attend taoist or Never 2021 druze services? Do you [...] Dena Mendiola L.P.N. - 10/27/2018 1:23 PM SORTING MACHINE OPERATOR Received forms back from [facility] needing additional information. Dr. Godinez completes these and they are faxed back. ING MACHINE OPERATOR Telephone Encounter - Dena Mendiola L.P.N. - 10/22/2018 3:42 PM SORTING MACHINE OPERATOR Forms are faxed to Neurology in [place] for Dr. Godinez to fill out. ING MACHINE OPERATOR Telephone Encounter - Dena Mendiola L.P.N. - 10/22/2018 3:37 PM SORTING MACHINE OPERATOR I was given the fax number to fax the forms to. Patient is covered under [facility]. ING MACHINE OPERATOR Telephone Encounter - Dena Mendiola L.P.N. - 10/22/2018 3:33 PM SORTING MACHINE OPERATOR Prior Auth office unable to help because a physician signature is needed on the forms. ING MACHINE OPERATOR Telephone Encounter - Dena Mendiola L.P.N. - 10/22/2018 2:31 PM SORTING MACHINE OPERATOR I spoke to the patient to see if she had a fax number. She was only given the phone number. I informed her because it is a prior authorization, I will have the prior authorization office call [employer]. I notified Clemente Alfredo who was working on this yesterday and faxed the forms to her. ING MACHINE OPERATOR Telephone Encounter - Sydney Kim - 10/22/2018 12:03 PM CST Patient states she has faxed the form to Dr. Godinez. She also provided the phone number that Dr. Godinez or a nurse needs to call. , department [employer]. Please advise ING MACHINE OPERATOR Telephone Encounter - Dena Mendiola L.P.N. - 10/22/2018 9:07 AM SORTING MACHINE OPERATOR I called [facility] to see that she got the message that the form was faxed. She indicated that she went to her HR because of the trouble of [facility] not seeing her in their data base. She said that her HR called [facility] and she was given new forms. The form that was faxed was the wrong form. She will call with a new fax number to send it to because there is no fax number on the form. She will fax the form to me today. ING MACHINE OPERATOR Telephone Encounter - Dena Mendiola L.P.N. - 10/21/2018 10:12 AM SORTING MACHINE OPERATOR Left message to the patient that the form was faxed. ING MACHINE OPERATOR Telephone Encounter - Dena Mendiola L.P.N. - 10/21/2018 9:49 AM SORTING MACHINE OPERATOR Form is faxed to [facility] of [place], customer service. , phone Address [address] [address] [place] [address] ING MACHINE OPERATOR Telephone Encounter - Dena Mendiola L.P.N. - 10/21/2018 8:17 AM SORTING MACHINE OPERATOR Phone call received yesterday from Prior Auth office Juni Joseaman. She is working on the prior Stream for the [facility] and wanting to do a conference call to the insurance. Parties myself , Juni and [facility] to get the copay covered. Was on the phone for 45 min with [facility] and they were unable to help because [...] are here and on Dr. Godinez desk. ING MACHINE OPERATOR Telephone Encounter - Dena Mendiola L.P.N. - 10/20/2018 4:47 PM SORTING MACHINE OPERATOR Member service number should be [phone]. Patient to fax forms tomorrow. ING MACHINE OPERATOR Telephone Encounter - Dena Mendiola L.P.N. - 10/20/2018 2:20 PM SORTING MACHINE OPERATOR Patient calls and says that her insurance has changed to [employer] [phone]. Phone number member services ING MACHINE OPERATOR Telephone Encounter - Dena Mendiola L.P.N. - 10/20/2018 2:09 PM SORTING MACHINE OPERATOR EPA pool Please start a prior auth for the patients Lamictal that Dr. Godinez prescribed today. She needs brandname as she had many seizures when she tried the generic.Please do today as the patient is out of medication. Thank you, Thank you ING MACHINE OPERATOR documented in this encounter Plan of Treatment Not on filedocumented as of this encounter Visit Diagnoses Not on filedocumented in this encounter
--- OUTSIDE RECORDS SUMMARY | 2022-08-23 08:29 | XMS_ITS | Encounter Summary ---
:1985 Author Organization [facility] Address [address] [place] [address] Care Team Providers Name Role Phone Unavailable Primary Care Provider Unavailable Encounter Details Date Type Department Care Team Description 10/20/2018 Clinical Communication Department of Neurology Rui Godinez, in [facility] kandis Boss, M.P.H. [address] [place] [address] [address], [place] [phone] Social History Tobacco Use Types Packs/Day [...] do you attend bahai or Never 2021 caodaism services? Do you [...] Sally Wallis L.P.N. - 10/21/2018 11:22 AM CUSTOMER SERVICE LEADER Contacted [place] [facility]. Medication is correct but the issue is that they need a prior auth done on the weaver. It cost $2000.00 for a 30 day supply. OMER SERVICE LEADER Telephone Encounter - Rui Godinez M.D., M.P.H. - 10/21/2018 9:41 AM CUSTOMER SERVICE LEADER It says lamictal with DAW1 OMER SERVICE LEADER Telephone Encounter - Bianka Chakraborty - 10/20/2018 [...] Medication (if relevant): Lamictal 200 mg tablet OMER SERVICE LEADER documented in this encounter Plan of Treatment Not on filedocumented as of this encounter Visit Diagnoses Not on filedocumented in this encounter
--- OUTSIDE RECORDS SUMMARY | 2022-08-23 08:29 | XMS_ITS | Encounter Summary ---
:1985 Author Organization [facility] Address [address] [place] [address] Care Team Providers Name Role Phone Unavailable Primary Care Provider Unavailable Encounter Details Date Type Department Care Team Description 10/17/2018 Orders Only Department of Neurology in Rui Godinez M.D., [place], [place] M.P.H. [address] [place] [address] [address] [place] [address] [place], [place] [phone] (Wo rk) Social History Tobacco Use [...] do you attend confucianism or Never 2021 hoahaoism services? Do you [...]
--- OUTSIDE RECORDS SUMMARY | 2022-08-23 08:29 | XMS_ITS | Encounter Summary ---
:1985 Author Organization [facility] Address [address] [place] [address] Care Team Providers Name Role Phone Unavailable Primary Care Provider Unavailable Reason for Visit Reason Comments Med Refill Encounter Details Date Type Department Care Team Description 10/20/2018 Refill Department of Neurology in Rui Godinez M.D., Med Refill [place], [place] M.P.H. [address] [facility] [address] [address] [place] [phone] (Wo rk) Social History Tobacco [...] do you attend sikh or Never 2021 presybeterian services? Do you [...]
--- OUTSIDE RECORDS SUMMARY | 2022-08-23 08:29 | XMS_ITS | Encounter Summary ---
:1985 Author Organization [facility] Address [address] [place] [address] Care Team Providers Name Role Phone Unavailable Primary Care Provider Unavailable Encounter Details Date Type Department Care Team Description 10/13/2018 Clinical Communication Department of Neurology Rui Godinez, in [facility] kandis Boss, M.P.H. [address] [place] [address] [address] [place] [phone] Social History Tobacco Use Types Packs/Day [...] do you attend anabaptism or Never 2021 hinduism services? Do you [...] : Prescription for LamoTRIgine was faxed to [facility] in [place] Information: patient/caller able to repeat back in their own words The following references were used: provider Herbert PING CLERK PACKING Telephone Encounter - Sally Wallis L.P.N. - 10/13/2018 8:38 AM SHIPPING CLERK PACKING Contacted patient. Stated that she had the form faxed to our clinic that needs to be filled out. Needs brand name seizure medication. Has tried generic medication and had seizures while on them. Is aware that will be back in office on SatOctober 15. PING CLERK PACKING Telephone Encounter - Racquel Jimenez - 10/13/2018 [...] Godinez here but has seen him in [place]. Form is for a medication her insurance is charging her full weaver for because it is not the name brand. She is and needing this medication and needing Dr. Godinez to fill this out for her. Name of Medication (if relevant): PING CLERK PACKING documented in this encounter Plan of Treatment Not on filedocumented as of this encounter Visit Diagnoses Not on filedocumented in this encounter
--- OUTSIDE RECORDS SUMMARY | 2022-08-23 08:29 | XMS_ITS | Encounter Summary ---
:[address] [facility] Address [address] [place] [address] Care Team Providers Name Role Phone Unavailable Primary Care Provider Unavailable Encounter Details Date Type Department Care Team Description 10/20/2018 Orders Only Department of Rui Godinez, [place] on Related Neurology in Karyn Bose, M.P .H. Focal Partial Idiopathic [place] [address] Epilepsy And Epileptic [address] [place], [place] [address] [place] [phone] Intractable With Status Epilepticus (HCC) [phone] (Primary Dx) (Fax) Social History Tobacco Use [...] do you attend congregational or Never 2021 mormon services? Do you [...]
--- OUTSIDE RECORDS SUMMARY | 2022-08-23 08:29 | XMS_ITS | Encounter Summary ---
:1985 Author Organization [facility] Address [address] [place] [address] Care Team Providers Name Role Phone Unavailable Primary Care Provider Unavailable Encounter Details Date Type Department Care Team Description 10/20/2018 Clinical Communication Department of Dena Mendiola Neurology in [place], [place] [address] [place] [phone] Social History Tobacco Use [...] do you attend jainism or Never 2021 jewish services? Do you [...] Dena Mendiola L.P.N. - 10/20/2018 3:02 PM SUPERVISOR MAINTENANCE Patient is notified. [facility] office also notified to start PA for Lamictal. RVISOR MAINTENANCE Telephone Encounter - Rui Godinez M.D., M.P.H. - 10/20/2018 1:54 PM SUPERVISOR MAINTENANCE I called and talked to the pharmacy ([facility]) and refilled her Lamictal at 400 mg BID as she is currently taking. My last note (in [place]) shows that she was prescribed 300 mg BID so someone else must have increased the dose. RVISOR MAINTENANCE Telephone Encounter - Dena Mendiola L.P.N. - 10/20/2018 1:43 PM SUPERVISOR MAINTENANCE Patient calling and has seen Dr. Godinez in [place]. She is calling about her the prescription [...] taking 400 mg twice daily. She uses [facility] in [place]. Scanned notes from [place] are in the EMR from September. She would like a new rx sent to the pharmacy and to have CIERA 1. Please advise which dose she should be on. RVISOR MAINTENANCE documented in this encounter Plan of Treatment Not on filedocumented as of this encounter Visit Diagnoses Not on filedocumented in this encounter
--- OUTSIDE RECORDS SUMMARY | 2022-08-23 08:29 | XMS_ITS | Encounter Summary ---
:1985 Author Organization [facility] Address [address] [place] [address] Care Team Providers Name Role Phone Unavailable Primary Care Provider Unavailable Encounter Details Date Type Department Care Team Description 10/20/2018 Documentation Department of Neurology in Asif Mendiola [place], [place] L.P.N. [address] [place] [address] [place], [place] [phone] Social History Tobacco Use Types Packs/Day Years [...] do you attend anabaptist or Never 2021 adventism services? Do you [...] 1:23 PM CST See next phone message. DING DRAFTER documented in this encounter Plan of Treatment Not on filedocumented as of this encounter Visit Diagnoses Not on filedocumented in this encounter
--- OUTSIDE RECORDS SUMMARY | 2022-08-23 08:29 | XMS_ITS | Encounter Summary ---
:1985 Author Organization [facility] Address [address] [place] [address] Care Team Providers Name Role Phone Unavailable Primary Care Provider Unavailable Encounter Details Date Type Department Care Team Description 10/06/2018 Clinical Communication Department of Neurology Rui Godinez, in [facility] kandis Boss, M.P.H. [address] [place] [address] [address] [place] [phone] Social History Tobacco Use Types Packs/Day [...] do you attend protestant or Never 2021 sabianism services? Do you [...] Sally Wallis L.P.N. - 10/08/2018 10:24 AM MANAGER DENTAL Patient advised to check with [place] to send neurology records and to fax over the formulary exception form. Patient in agreement with this plan. GER DENTAL Telephone Encounter - Diana Candelario - 10/06/2018 [...] Name of Medication (if relevant): Lamictal pills GER DENTAL documented in this encounter Plan of Treatment Not on filedocumented as of this encounter Visit Diagnoses Not on filedocumented in this encounter
--- OUTSIDE RECORDS SUMMARY | 2022-08-23 08:29 | XMS_ITS | Encounter Summary ---
:1985 Author Organization [facility] Address [address] [place] [address] Care Team Providers Name Role Phone Unavailable Primary Care Provider Unavailable Encounter Details Date Type Department Care Team Description 10/20/2018 Orders Only [facility] - Isma Hoyos M.D. [address], [facility] [[email or web address] [address] [place] [phone] (Wo rk) Social History Tobacco [...] many times do you More than three susna es a week 11/08/2021 talk on the phone with family, friends, or neighbors? How often do you get together with friends Twice a week 11/08/2021 or relatives? How often do you attend zoroastrian or Never 2021 pentecostal services? Do you [...]
[2022-08-23 08:34] LABS: Glucose Fasting Check 79 mg/dl (60-115)
[2022-08-23 13:22] LABS: Glucose GTT-Gestational 3 Hr 100 mg/dl (70-140)
[2022-08-23 13:23] LABS: Glucose 1 Hour Gest 154 mg/dl (70-180)
== END 2022-08-23 08:23 | disposition home or self-care (01) ==
LOC: NFLDREF 08:23
PROVIDERS: PCP Family Medicine; Visit Provider Obstetrics & Gynecology
DX: Z34.93 Encounter for supervision of normal pregnancy, unspecified, third trimester (principal); Z3A.31 31 weeks gestation of pregnancy
CPT/HCPCS: 82951; 82952

== ENCOUNTER 2022-10-05 09:24 | Outpatient (CLI) | payer BC, SELFPAY ==
[2022-10-06 15:58] LABS: Strep B DNA Probe POSITIVE (Negative); Strep B Pen/Amox Allergy No
== END 2022-10-05 09:25 | disposition home or self-care (01) ==
LOC: NFLDREF 10:12
PROVIDERS: PCP Family Medicine; Visit Provider Obstetrics & Gynecology
DX: Z34.90 Encounter for supervision of normal pregnancy, unspecified, unspecified trimester (principal)
CPT/HCPCS: 87081; 87653

== ENCOUNTER 2022-10-29 21:21 | Inpatient (IN) | payer BC, SELFPAY ==
[2022-10-29] VITALS (11 sets, daily range): BP systolic 102–124; BP diastolic 63–77; PULSE 56–89; RESP 16; TEMP 36.6; O2SAT 98
[2022-10-29] MEDS: LACTATED RINGERS 1000 ML 1,000 ML 125 ML IV (21:35)
[2022-10-29] MEDS: AMPICILLIN 2 GM in 0.9 % SODIUM CHLORIDE Mini-bag 100 ML IVPB (21:40)
[2022-10-29] MEDS: LIDOCAINE 1 % PF 30 ML INJECTION (22:07)
[2022-10-29] MEDS: OXYTOCIN 30 unit/500 ML in NS 30 UNIT/500 ML BAG 300 UNIT IVPB (22:08)
--- NOTE | 2022-10-29 22:48 | PM.OBPRCVD ---
Procedure Delivery date: 10/29/22 Procedure Done: Global Procedure Details: The patient is a 37 year-old G 3 P 2000 who presented to the center and pushing at 38 and 6/7 weeks gestation with membranes ruptured in vertex presentation. Contractions were every 2 minutes. heart rate demonstrated baseline 120 bpm with moderate variability, + accelerations, variable decelerations; a category II tracing. GBS +, received inadequate antibiotics for prophylaxis (just half a dose prior to delivery) SROM occurred at 8PM on 10/29 with clear fluid. Labor Analgesia: None Pitocin: No Labor onset: 10/29 at 1999 Complete: 10/29 at 2129 Pushin/23 at 2129 heart tones during second stage were II with intermittent variable but good recovery. At time a viable male infant delivered in vertex OA presentation over 2nd degree laceration via spontaneous vaginal delivery at 2141 was placed on maternal abdomen. Cord was clamped and cut after a 30-60 second delay. Nose and mouth were bulb suctioned. Infant weight: 3799 g. 7 at 1 minute and 9 at 5 minutes. Shoulder dystocia: No. Nuchal cord: No . Placenta delivered spontaneously and complete at 2144 with a 3 vessel cord. Placenta sent to path for bilobed placenta. Complications: None. Mother and infant were stable after delivery. Laceration(s): 2nd degree laceration in a U shape, left labial, and right periurethral. Analgesia: 15 cc of 1%lidocaine 2nd degree was repaired with 2-0 vicryl by placing 3 interrupted stitches to bring the apex that had avulsed of the perineum together. After that, it was repaired with 2-0 chromic in a continuos locking manner on either side of the apex. Labial laceration was repaired with 2-0 chromic in a continuous non locking manner. 1 figure of 8 was placed on right periurethral laceration. Given her history of 4th degree laceration, rectal exam performed after repair: No occult defect or stitches palpated. Tone normal and anal sphincter intact. Quantitative blood loss: 300 mL. Sponge and needles counts are correct. Mother and were stable at the time of this note. Trinity is planning on feeding.
[2022-10-30] VITALS (7 sets, daily range): BP systolic 101–114; BP diastolic 68–75; PULSE 55–76; RESP 16–18; TEMP 36.5–37; O2SAT 97–99; BMI 31.6
[2022-10-30] MEDS: IBUPROFEN 600 MG TABLET PO ×3 (01:08→20:39)
[2022-10-30 02:39] LABS: SARS PCR* Negative SARS-CoV-2 (Negative)
[2022-10-30 06:03] LABS: Hemoglobin* 10.7 gm/dL (12.0-16.0)
--- NOTE | 2022-10-30 08:03 | PM.OBPNVD1 ---
OB - PN:Subj Subjective Date Seen: 10/30/22 Patient comments OB post-: no complaints, pain well controlled, tolerating diet and flatus present [place] status: and doing well [place] feeding status: exclusively Narrative: Day 1:? Vaginal Delivery at 38 and 6/7 weeks.? ?? Complications:? none? The patient feels well.? The pain is well controlled with current medications.? She has no new complaints.? She has not been up since shortly after delivery. She was not able to urinate at that time and has not yet tried again. She plans to try again this morning.? Has a good appetite, is tolerating a general diet, is not yet passing flatus, and has not had a bowel movement.? Has?small amount of rubra lochia.? She ambulated well the one time she was up.?She is planning on staying tonight as baby has to stay for GBS monitoring since she was not adequately treated. She would like to take her home seizure medication. Order placed for pharmacy to approve. ? OB - PN: Obj Exam Physical Exam: Vital signs: Temp Pulse Resp BP Pulse Ox O2 Del Method 97.7 F 60 16 105/69 99 10/30/22 04:30 10/30/22 04:30 10/30/22 04:30 10/30/22 04:30 10/30/22 04:30 10/30/22 04:30 Narrative: GENERAL APPEARANCE:? normal affect, alert, no distress? MOOD:? appropriate? CHEST:? clear to auscultation and percussion? HEART:? regular rate and rhythm? ABDOMEN:? soft, non-tender the uterine fundus is?U/2? and is appropriate for the stage of recovery.? PERINEUM:? mild edema of the perineum, there is a? that is healing well.? EXTREMITIES:? normal and no edema? OB - PN: Obj Data Labs Labs: Laboratory Results - last 24 hr 10/29/22 10/30/22 21:45 05:46 Hgb 10.7 L SARS-CoV-2 (PCR) Negative SARS-CoV-2 OB - PN: A/P Vaginal Delivery Assessment and Plan (1) care following vaginal delivery: Status: Acute Plan 37 year old on day 1.? 1. cares.? 2. Anticipate discharge tomorrow. 3. Order placed for pt to take her own home medications per her preference. Plan day: 1 Plan: routine care
[2022-10-30] MEDS: DOCUSATE SODIUM 100 MG CAPSULE PO (08:29)
[2022-10-30] MEDS: ACETAZOLAMIDE 500 MG 500 EACH PO ×2 (13:00→21:00)
[2022-10-31 00:35] VITALS: BP 97/61; PULSE 76; RESP 14; TEMP 36.9; O2SAT 96
[2022-10-31 04:00] VITALS: BP 112/77; PULSE 56; RESP 14; TEMP 37; O2SAT 96
--- NOTE | 2022-10-31 08:22 | P.DS_ITS ---
DS: Providers Provider Date Seen: 10/31/22 Date of admission: 10/29/22 21:21 Primary care physician: Chapo Membreno MD Admitting Clinician: Hazel Russo MD Attending Physician on discharge: Gina Carpio CNM DS: Diagnosis Discharge Diagnosis (1) care and examination immediately after delivery: Status: Acute (2) Normal vaginal delivery: Status: Acute (3) Lactating mother: Status: Acute Exam Narrative: Exam Narrative: GENERAL APPEARANCE:? normal affect, alert, no distress? MOOD:? appropriate? CHEST:? clear to auscultation? HEART:? regular rate and rhythm? ABDOMEN:? soft, non-tender the uterine fundus is At Umbilicus, Midline and is appropriate for the stage of recovery.? PERINEUM:? mild edema of the perineum, there is a Perineal Laceration,? 2nd degree, that is healing well.? EXTREMITIES:? normal and trace edema Const: Vital Signs, click to edit/add: Vital Signs - 24 hr 10/30/22 11:59 10/30/22 15:52 10/30/22 20:31 Temperature 98.6 F 98.2 F 98.1 F Pulse Rate [Blood Pressure Cuff] 68 73 76 Respiratory Rate 18 16 16 Blood Pressure [Le ft Arm] 110/73 114/75 111/73 Pulse Oximetry 97 97 97 Oxygen Delivery Me thod Room Air Room Air Room Air 10/31/22 00:35 10/31/22 04:00 Temperature 98.4 F 98.6 F Pulse Rate [Blood Pressure Cuff] 76 56 L Respiratory Rate 14 14 Blood Pressure [Le ft Arm] 97/61 112/77 Pulse Oximetry 96 96 Oxygen Delivery Me thod Room Air Room Air OB - DS: Summary Hospital Course Hospital Course: The patient is a 37 year old G 3 P 2102 at 38 6/7 weeks gestation that was admitted to the Center on 10/29/22 for labor. She had an uncomplicated vaginal delivery. She delivered a viable male . She is bottle feeding. the patient has done well. The pain is well controlled with current medications.? She has no new complaints.? Urinary output is adequate and she is voiding without difficulty.? Has a good appetite, is tolerating a general diet, is passing flatus, and has had a bowel movement.? Has scant amount of rubra lochia.? She is ambulating well. Pt plans Mirena for control. Peripartum Data delivery method: Vaginal Laceration description: Perineal - 2nd Degree complications: none Gender: Male Discharge Plan: Home Status at Discharge Functional status at discharge: independent ambulation Overall status at discharge: patient is progressing back to baseline Time Spent with Patient Time attestation: Total time spent providing and/or coordinating discharge services: Time spent: Less than 30 minutes Discharge Plan Discharge Disposition: Home, Self-Care Date of Admission: 10/29/22 21:21 Attending Provider on Discharge: Gina Carpio Primary Care Provider: Chapo Membreno Condition: Stable Anticipated Discharge Date/Time: 10/31/22 11:00 Discharge Medications: New acetaminophen 500 mg Tablet 1,000 mg PO Q6H PRNQty: 0 0RF docusate sodium 100 mg Capsule 100 mg PO DAILY Qty: 0 0RF ibuprofen 600 mg Tablet 600 mg PO Q6H PRNQty: 0 0RF Continued levetiracetam 1,000 mg tablet 1,000 mg PO BID folic acid 1 mg tablet 1 mg PO DAILY lamotrigine 200 mg tablet 400 mg PO BID prenat.vits,kumar,eke-snan-dityz Tablet 1 tab PO QDAY albuterol sulfate 90 mcg/actuation HFA aerosol inhaler 2 puff inhalation Q4H PRN famotidine 40 mg tablet 40 mg PO BID Qty: 180 1RF acetazolamide 500 mg capsule, extended release 500 mg PO BID Label Comments: TAKE 1 CAPSULE BY MOUTH TWICE DAILY Discontinued valacyclovir 500 mg tablet 500 mg PO BID Label Comments: TAKE 1 TABLET BY MOUTH TWICE DAILY Discharge Orders: Discharge Order (Routine); Ordered 10/31/22 Ordered By: Gina Carpio Patient Education: OB Vaginal/Breast Feeding Additional Instructions: Discharge instructions were reviewed with the patient including signs and symptoms of infection and home going medications Nothing vaginally for 6 weeks: no tampons or intercourse Off Work or School for 8 weeks 2-week visit: discuss feeding concerns, review control options and screen for anxiety/depression. 6-week visit for an annual exam. consultation services are available to all mothers and babies for the first year after delivery.? To make an appointment, please call [phone]. Activity Level: Activity as Tolerated Discharge Diet: Regular Follow Up Appointments: [facility] [Provider Group] (2 and 6 weeks ) Forms: [employer] Info Instructions
[2022-10-31 09:00] VITALS: BP 110/75; PULSE 62; RESP 16; TEMP 36.8
[2022-10-31] MEDS: ACETAZOLAMIDE 500 MG 500 EACH PO (09:00)
== END 2022-10-31 12:37 | disposition home or self-care (01) | DRG 560 ==
LOC: OB OUT 21:43 → OB 21:44 → OB OUT 21:47 → OB 21:47
PROVIDERS: Admitting Provider Obstetrics & Gynecology; PCP Family Medicine; Visit Provider Obstetrics & Gynecology
DX: O70.1 Second degree perineal laceration during delivery (principal); O99.824 Streptococcus B carrier state complicating childbirth; Z3A.38 38 weeks gestation of pregnancy; Z37.0 Single live birth; O71.82 Other specified trauma to perineum and vulva
CPT/HCPCS: 36415; 85018; 87635; 88307; A9270; J0290; J2001; J7120

== ENCOUNTER 2022-12-14 11:32 | Outpatient (CLI) | payer BC, SELFPAY | END 2022-12-14 11:33 | disposition home or self-care (01) | LOC: NFLDREF 11:34 | PROVIDERS: PCP Family Medicine; Visit Provider Registered Nurse | DX: Z39.2 Encounter for routine postpartum follow-up (principal) | CPT/HCPCS: 87086 ==

== ENCOUNTER 2023-10-03 09:33 | Outpatient (CLI) | payer BC, SELFPAY ==
--- NOTE | 2023-10-03 09:45 | CRLHL7_ITS ---
For Patients: As a result of the Century Cures Act, medical imaging exams and procedure reports are released immediately into your electronic medical record. You may view this report before your referring provider. If you have questions, please contact your health care provider. BILATERAL SCREENING MAMMOGRAM WITH COMPUTER-AIDED DETECTION AND TOMOSYNTHESIS TECHNIQUE: CC and MLO views were obtained. These mammographic images have been obtained using full-field digital technique. These mammographic images were interpreted with the benefit of computer-aided detection. Breast Tomosynthesis was used in this interpretation. COMPARISON FILM: Baseline. FINDINGS: The breasts are heterogeneously dense, which may obscure small masses IMPRESSION: There is no radiographic evidence for malignancy. ASSESSMENT: BI-RADS Category 1: Negative RECOMMENDATION: Routine screening mammogram in 1 year. A lay language report of this examination will be provided to the patient. Chapo Vickers M.D. Diagnostic Radiologist [email or web address] WILFRIDO/Dictated by: Chapo Vickesr MD @ 10/03/2023 10:12:00 AM (Electronically Signed)
== END 2023-10-03 09:34 | disposition home or self-care (01) ==
LOC: MAMMO 09:33
PROVIDERS: PCP Family Medicine; Visit Provider Family Medicine
DX: Z12.31 Encounter for screening mammogram for malignant neoplasm of breast (principal); R92.2 Inconclusive mammogram
CPT/HCPCS: 77063; 77067

== ENCOUNTER 2024-05-20 07:06 | Outpatient (CLI) | payer BC, SELFPAY ==
--- OUTSIDE RECORDS SUMMARY | 2024-05-20 07:08 | XMS_ITS | Clinical Summary ---
Author Organization [facility] Address [address] [place] [address]. [place] [address] Care Team Providers Care Battery Service Technician Name Role Phone Clinic, [facility] Primary Care Provide r Allergies No known active allergies Medications Medication Sig Dispensed Refills Start Date End Date Status lamoTRIgine (LAMICTAL) 200 MG tablet Take 400 mg by mouth 2 times daily Active LEVETIRACETAM PO TABS Take 1,000 mg by mouth 2 times daily. Active ACETAZOLAMIDE POIndications:Seizure Take 500 mg by mouth 2 times daily. Indications: Seizure Active Vit-Fe Fumarate-FA ( MULTIVITAMIN W/IRON) 27-0.8 MG tabletIndications:Preg garfield Take 1 tablet by mouth daily Active folic acid (FOLVITE) 1 MG tabletIndications:epil epsy Take 1 mg by mouth daily Active ranitidine (ZANTAC) 150 MG capsuleIndications:Hea rtburn Take 150 mg by mouth 2 times daily Active calcium carbonate (TUMS) 500 MG chewable tabletIndications:Hear tburn Take 2 chew tab by mouth 2 times daily Active magnesium oxide (MAG-OX) 400 MG tabletIndications:head ache Take 400 mg by mouth daily Active acetaminophen (TYLENOL) 325 MG tabletIndications:Pain Take 325 mg by mouth every 6 hours as needed for mild pain or headaches Active Active Problems Problem Noted Date Diagnosed Date Encounter for induction of labor 10/28/2021 Social History Tobacco Use Types Packs/Day Years Used Date Smoking Tobacco: Never Smokeless Tobacco: Never Alcohol Use Standard Drinks/Week Comments Not Currently 0 (1 standard drink = 0.6 oz pur e alcohol) occ Adolescent Education Answer Date Record ed Getting School Help Needed Not on file 06/30 Sex and Gender Information Value Date Recorded Sex Assigned at Not on file Gender Identity Not on file Sexual Orientation Not on file Last Filed Vital Signs Vital Sign Reading Time Taken Comments Blood Pressure 107/66 10/29/2021 11:27 AM VICE PRESIDENT PAYER Pulse 57 06/16/2013 7:52 AM CDT Temperature 37 ??C (98.6 ??F) 10/29/2021 6:23 AM VICE PRESIDENT PAYER Respiratory Rate 99 10/29/2021 8:38 AM VICE PRESIDENT PAYER Oxygen Saturation 100% 10/29/2021 12:01 PM VICE PRESIDENT PAYER Inhaled Oxygen Concentration - - Weight 79.4 kg (175 lb) 10/28/2021 9:00 AM VICE PRESIDENT PAYER Height 165.1 cm (5' 5) 10/28/2021 9:00 AM VICE PRESIDENT PAYER Body Mass Index 29.12 10/28/2021 9:00 AM VICE PRESIDENT PAYER Plan of Treatment Health Maintenance Due Date Last Done Comments ADVANCE CARE PLANNING 1987 ANNUAL REVIEW OF HM ORDERS 1987 YEARLY PREVENTIVE VISIT 1987 IPV IMMUNIZATION (3 of 3 - 4-dose series) 1991 08/01/1989, 1987 HEPATITIS B IMMUNIZATION (1 of 3 - 19+ 3-dose series) 2006 PAP 2008 GLUCOSE 09/05/2020 09/05/2017, 06/07, 11/10/2007, Additional history exists COVID-19 Vaccine (3 - 2022- season) 2023 04/14/2021, 03/24/2021 PHQ-2 (once per calendar year) 2023 INFLUENZA VACCINE (#1) 2024 , 07/16/2019, 08/21/2018 DTAP/TDAP/TD IMMUNIZATION (7 - Td or Tdap) 12/18/2028 12/18/2018, 03/17/2016, 04/23/2009, Additional history exists HEPATITIS C SCREENING Completed 07/25/2021 HIV SCREENING Completed 07/25/2021 HPV IMMUNIZATION Aged Out No longer e ligible based on patient's age to complete this topic MENINGITIS IMMUNIZATION Aged Out No l onger eligible based on patient's age to complete this topic Pneumococcal Vaccine: Pediatrics (0 to 5 Years) and At-Risk Patients (6 to 64 Years) Aged Out No longer eligible based on patient's age to complete this topic RSV MONOCLONAL ANTIBODY Aged Out No l onger eligible based on patient's age to complete this topic Procedures Procedure Name Priority Date/Time Associated Diagnosis Comments HEPATITIS C (HIM EXTERNAL RESULT) Routine 07/25/2021 3:50 PM CDT HIV 1&2 ANTIBODY (EXTERNAL RESULT) Routine 07/25/2021 12:00 PM CDT COMPREHENSIVE METABOLIC PANEL Routine 09/05/2017 7:19 AM VICE PRESIDENT PAYER 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) from Last 3 Months or Most Recently Relevant to Health Maintenance Results * Hepatitis C ([facility] External Result) (07/25/2021 3:50 PM CDT) Hep C [facility] See Scanned Document [facility] 07/25/2021 3:50 PM CDT Narrative [facility] - 07/25/2021 3:50 PM CDT LAB RESULT [facility] Provider Outside LAB - [facility] EXTERNAL R ESULT Performing Organization Address City/[facility]/ZIP Co de Phone Number [facility] [address] [phone] * HIV-1 Antibody (External Result) (07/25/2021 12:00 PM CDT) HIV 1&2 Antibody (External) Negative Nonreactive [facility] 07/25/2021 12:0 0 PM CDT January Brandy LAB - [facility] EXTERNAL R ESULT Performing Organization Address City/[facility]/ZIP Co de Phone Number [facility] [address] [place] [address], [facility] [phone] * (ABNORMAL) Comprehensive metabolic panel (BMP + Alb, Alk Phos, ALT, AST, Total. Bili, TP) (09/05/2017 7:19 AM VICE PRESIDENT PAYER) Sodium 141 133 - 144 mmol/L 09/05/2017 7:44 AM [facility] Potassium 3.7 3.4 - 5.3 mmol/L 09/05/2017 7:44 AM [facility] Chloride 114(H) 94 - 109 mmol/L 09/05/2017 7:44 AM [facility] Carbon Dioxide 20 20 - 32 mmol/L 09/05/2017 7:44 AM [facility] Anion Gap 7 3 - 14 mmol/L 09/05/2017 7:44 AM [facility] Glucose 93 70 - 99 mg/dL 09/05/2017 7:44 AM [facility] Urea Nitrogen 13 7 - 30 mg/dL 09/05/2017 7:44 AM [facility] Creatinine 0.98 0.52 - 1.04 mg/dL 09/05/2017 7:44 AM [facility] GFR Estimate 66 >60 mL/min/1.7 m2 09/05/2017 7:44 AM [facility] Comment:Non GFR Calc GFR Estimate If Black 80 >60 mL/min/1.7 m2 09/05/2017 7:44 AM [facility] Comment: GFR Calc Calcium 8.9 8.5 - 10.1 mg/dL 09/05/2017 7:44 AM [facility] Bilirubin Total 0.6 0.2 - 1.3 mg/dL 09/05/2017 7:44 AM [facility] Albumin 4.0 3.4 - 5.0 g/dL 09/05/2017 7:44 AM [facility] Protein Total 7.4 6.8 - 8.8 g/dL 09/05/2017 7:44 AM [facility] Alkaline Phosphatase 65 40 - 150 U/L 09/05/2017 7:44 AM [facility] ALT 16 0 - 50 U/L 09/05/2017 7:44 AM [facility] AST 13 0 - 45 U/L 09/05/2017 7:44 AM [facility] Blood specimen (specimen) 09/05/2017 7:19 AM VICE PRESIDENT PAYER 09/05/2017 7:20 AM VICE PRESIDENT PAYER Ernestina Shah MD LAB - BLOOD ORDERAB LES [facility] [address] [place] [address], [facility] [phone] from Last 3 Months or Most Recently Relevant to Health Maintenance Advance Directives For more information, please contact: [phone] * Full Code (Latest Code Status on File) Date Activated Date Inactivated Comments 10/28/2021 6:54 PM 10/29/2021 4:58 PM All basic an d advanced life-sustaining interventions are performed as appropriate Question Answer Comments Code status determined by: Discussion with srinivasan nt/ legal decision maker Care Teams Battery Service Technician Relationship Specialty Start Date End Date Clinic, [facility] [address] [place] [address] PCP - General 09/05/17
--- OUTSIDE RECORDS SUMMARY | 2024-05-20 07:08 | XMS_ITS | Clinical Summary ---
Author Organization [facility] Address [place], [place] [address] Care Team Providers Care Vice President Of Brand Management Name Role Phone Juan Alberto Jackson MD Primary Care Provider Allergies No known active allergies Medications Medication Sig Dispensed Refills Start Date End Date Status acetaZOLAMIDE (DIAMOX SEQUEL) 500 mg Extended-Release capsule TAKE 1 BY MOUTH TWICE DAILY 10/28/2020 Active folic acid 1 mg tablet Take 1 mg by mouth once daily. 01/03/2021 Active lamoTRIgine (LAMICTAL) 200 mg tablet Take 400 mg by mouth 2 times daily. 01/03/2021 Active levETIRAcetam (KEPPRA) 1,000 mg tablet Take 1,000 mg by mouth 2 times daily. 01/02/2021 Active Active Problems No known active problems Social History Tobacco Use Types Packs/Day Years Used Date Smoking Tobacco: Never Smokeless Tobacco: Never Sex and Gender Information Value Date Recorded Sex Assigned at Not on file Gender Identity Not on file Sexual Orientation Not on file Obstetrics History Last Filed Vital Signs Vital Sign Reading Time Taken Comments Blood Pressure 111/74 01/18/2021 6:13 PM CDT Pulse 58 01/18/2021 6:13 PM CDT Temperature 36.9 ??C (98.5 ??F) 01/18/2021 6:13 PM CD T Respiratory Rate 14 01/18/2021 6:13 PM CDT Oxygen Saturation 98% 01/18/2021 6:13 PM CDT Inhaled Oxygen Concentration - - Weight - - Height - - Body Mass Index - - Plan of Treatment Health Maintenance Due Date Last Done Comments Tdap 1998 Depression screening for age 12+ 1999 HIV for age 15-65 2002 BMI (ht and wt on same day) for age 18+ 2005 Hepatitis C screening for ag e 18-79 2005 Tetanus booster 2007 COVID-19 vaccine series (2022-24 season) 2023 Influenza for age 9-49 06/07/2024 Pap test for age 21-65 03/19/2025 , 03/19/2022 Pneumococcal series for age 6-64 Aged Out No longer eligible b ased on patient's age to complete this topic Procedures Procedure Name Priority Date/Time Associated Diagnosis Comments HPV THIN PREP Routine 03/19/2022 11:45 AM CDT from Last 3 Months or Most Recently Relevant to Health Maintenance Results * HPV HIGH RISK (03/19/2022 11:45 AM CDT) TYPE 16 Negative Negative 03/22/2022 3:15 PM CDT [facility] TYPE 18 Negative Negative 03/22/2022 3:15 PM CDT [facility] OTHER HIGH RISK TYPES Negative Negative 03/22/2022 3:15 PM CDT [facility] Other (Cervical/Vagina l) 03/19/2022 11:45 AM CDT 03/21/2022 7:36 AM CDT [facility]ative [facility] 03/22/2022 3:15 PM CDT HPV types 16, 18, 31, 33, 35, 39, 45, 51, 52, 56, 58, 59, 66 and 68 DNA were undetectable or below the pre-set threshold. Methodology: Eyad Eric 4800 HPV Test Shirley Whyte MD MICROBIOLO G[facility] [address] [place] [address], [place] from Last 3 Months or Most Recently Relevant to Health Maintenance Care Teams Vice President Of Brand Management Relationship Specialty Start Date End Date Juan Alberto Jackson MD PCP - General 09/20/08
--- OUTSIDE RECORDS SUMMARY | 2024-05-20 07:09 | XMS_ITS | Referral Summary ---
Author Organization [facility] Address [address] [place] [address] Care Team Providers Care Full Time Paramedic Name Role Phone Unavailable Primary Care Provider Unavailabl e Source Comments Patient records contain information from all sites at [facility]. For routine questions regarding patient records, call [phone] during business hours, M-F 8:00 AM - 5:00 PM Central Time. Record requests for emergency care only can be directed to [phone] at any time.[facility] Allergies No known active allergies Medications Medication Sig Dispensed Refills Start Date End Date Status valACYclovir (VALTREX) 500 mg tablet Take 1 tablet by mouth 2 (two) times a day. 0 01/26/2019 Active folic acid 1 mg tablet Take 1 tablet (1,000 mcg total) by mouth daily. 90 tablet 3 11/26/2022 Active levETIRAcetam (KEPPRA) 1,000 mg tablet Take 1 tablet (1,000 mg total) by mouth 2 (two) times a day. 180 tablet 3 11/27/2023 11/26/2024 Active acetaZOLAMIDE (DIAMOX) 500 mg 12 hr capsule Take 1 capsule (500 mg total) by mouth 2 (two) times a day. 180 capsule 3 11/27/2023 Active lamoTRIgine (LaMICtal) 200 mg tablet Take 1 tablet (200 mg total) by mouth 2 (two) times a day. 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 No 11/26/2022 Within the last year, have y ou been humiliated or emotionally abused in other ways by your partner or ex-partner? No 11/26/2022 Within the last year, have y ou been kicked, hit, slapped, or otherwise physically hurt by your partner or ex-partner? Patient declined 11/26/2022 Within the last year, have y ou been raped or forced to have any kind of sexual activity by your partner or ex-partner? No 11/26/2022 Social Connection and Isolat ion Panel [NHANES] Answer Date Recorded In a typical week, how many times do you talk on the phone with family, friends, or neighbors? More than three times a week 11/26/2022 How often do you get togethe r with friends or relatives? Twice a week 11/26/2022 How often do you attend chur ch or zoroastrian services? Never 11/26/2022 Do you belong to any clubs o r organizations such as yazidi groups, unions, fraternal or athletic groups, or school groups? No 11/26/2022 How often do you attend meet ings of the clubs or organizations you belong to? Never 11/26/2022 Are you , , di vorced, , never , or living with a partner? 11/26/2022 AUDIT-C Answer Date Recorded Q1: How often do you have a drink containing alc ohol? Never 11/26/2022 Average Number of Drinks Not on file 023 Frequency of Binge Drinking Not on file 11/08 Overall Financial Resource Strain (CARDIA) Answe r Date Recorded How hard is it for you to pa y for the very basics like food, housing, medical care, and heating? Not hard at all 11/26/2022 [facility] of Occupat ional Health - Occupational Stress Questionnaire Answer Date Recorded Do you feel stress - tense, restless, nervous, or anxious, or unable to sleep at night because your mind is troubled all the time - these days? Rather much 11/26/2022 Exercise Vital Sign Answer Date Recorde d On average, how many days pe r week do you engage in moderate to strenuous exercise (like a brisk walk)? 3 days 11/26/2022 On average, how many minutes do you engage in exercise at this level? 90 min 11/26/2022 Hunger Vital Sign Answer Date Recorded Within the past 12 months, y ou worried that your food would run out before you got the money to buy more. Never true 11/26/19 Within the past 12 months, t he food you bought just didn't last and you didn't have money to get more. Never true 11/26/2022 PRAPARE - Transportation Answer Date Re corded In the past 12 months, has l ack of transportation kept you from medical appointments or from getting medications? No 11/08 In the past 12 months, has l ack of transportation kept you from meetings, work, or from getting things needed for daily living? No 11/26/2022 Housing Stability Vital Sign Answer Chet e Recorded In the last 12 months, was t here a time when you were not able to pay the mortgage or rent on time? No 11/26/2022 In the last 12 months, how many places have you lived? 1 11/26/2022 In the last 12 months, was t here a time when you did not have a steady place to sleep or slept in a prison (including now)? No 11/26/2022 Nutrition Answer Date Recorded Nutrition: EVOO Fat Source Yes 11/26 On average, how many serving s of fruits and vegetables do you eat per day (serving size is equal to 1 cup or approximately the size of a tennis ball)? 2-3 11/26/2022 Dental Answer Date Recorded Dental: Regular Dentist Yes 11/26/19 Employment Answer Date Recorded Employment status Employed but not working due t o illness or injury 11/26/2022 Education Answer Date Recorded What is the highest level of school you have completed or the highest degree you have received? Some college, no degree 11/08/2021 Sex and Gender Information Value Date Recorded Sex Assigned at Female 02/02/2019 3:06 PM CDT Gender Identity Female 02/02/2019 3:06 PM CDT Sexual Orientation Straight 02/02/2019 3: 06 PM CDT Last Filed Vital Signs Vital Sign Reading Time Taken Comments Blood Pressure 116/74 08/25/2019 2:01 PM BEATER DUMPER Pulse 76 08/25/2019 2:01 PM BEATER DUMPER Temperature - - Respiratory Rate - - Oxygen Saturation - - Inhaled Oxygen Concentration - - Weight 84.2 kg (185 lb 10 oz) 08/25/2019 2:01 PM BEATER DUMPER Height - - Body Mass Index - - Plan of Treatment Not on file
--- OUTSIDE RECORDS SUMMARY | 2024-05-20 07:09 | XMS_ITS | Referral Summary ---
Author Organization [facility] Address [address] [place] [address]. [place] [address] Care Team Providers Care Para Machine Operator Name Role Phone Clinic, [facility] Primary Care Provide r Allergies No known [...] Comments Blood Pressure 107/66 10/29/2021 11:27 AM CROP OR LIVESTOCK TENANT FARMER Pulse 57 06/16/2013 7:52 AM CDT Temperature 37 ??C (98.6 ??F) 10/29/2021 6:23 AM CROP OR LIVESTOCK TENANT FARMER Respiratory Rate 99 10/29/2021 8:38 AM CROP OR LIVESTOCK TENANT FARMER Oxygen Saturation 100% 10/29/2021 12:01 PM CROP OR LIVESTOCK TENANT FARMER Inhaled Oxygen Concentration - - Weight 79.4 kg (175 lb) 10/28/2021 9:00 AM CROP OR LIVESTOCK TENANT FARMER Height 165.1 cm (5' 5) 10/28/2021 9:00 AM CROP OR LIVESTOCK TENANT FARMER Body Mass Index 29.12 10/28/2021 9:00 AM CROP OR LIVESTOCK TENANT FARMER Plan of Treatment Not on file Procedures Procedure Name Priority Date/Time Associated Diagnosis Comments HEPATITIS C (HIM EXTERNAL RESULT) Routine 07/25/2021 3:50 PM CDT HIV 1&2 ANTIBODY (EXTERNAL RESULT) Routine 07/25/2021 12:00 PM CDT COMPREHENSIVE METABOLIC PANEL Routine 09/05/2017 7:19 AM CROP OR LIVESTOCK TENANT FARMER 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) from Last 3 Months or Most Recently Relevant to Health Maintenance Results * Hepatitis C ([facility] External Result) (07/25/2021 3:50 PM CDT) Hep C HIM See Scanned Document [facility] 07/25/2021 3:50 PM CDT Narrative [facility] - 07/25/2021 3:50 PM CDT LAB RESULT [facility] Provider Outside LAB - HIM EXTERNAL R ESULT [facility] [address] [place] [address], [facility] [phone] * HIV-1 Antibody (External Result) (07/25/2021 12:00 PM CDT) HIV 1&2 Antibody (External) Negative Nonreactive [facility] 07/25/2021 12:0 0 PM CDT January Brandy LAB - HIM EXTERNAL R ESULT [facility] [address] [place] [address], [facility] [phone] * (ABNORMAL) Comprehensive metabolic panel (BMP + Alb, Alk Phos, ALT, AST, Total. Bili, TP) (09/05/2017 7:19 AM CROP OR LIVESTOCK TENANT FARMER) Sodium 141 133 - 144 mmol/L 09/05/2017 7:44 AM [facility] Potassium 3.7 3.4 - 5.3 mmol/L 09/05/2017 7:44 AM [facility] Chloride 114(H) 94 - 109 mmol/L 09/05/2017 7:44 AM [facility] Carbon Dioxide 20 20 - 32 mmol/L 09/05/2017 7:44 AM [facility] Anion Gap 7 3 - 14 mmol/L 09/05/2017 7:44 AM [facility] Glucose 93 70 - 99 mg/dL 09/05/2017 7:44 AM [facility] Urea Nitrogen 13 7 - 30 mg/dL 09/05/2017 7:44 AM [facility] Creatinine 0.98 0.52 - 1.04 mg/dL 09/05/2017 7:44 AM [facility] GFR Estimate 66 >60 mL/min/1.7 m2 09/05/2017 7:44 AM [facility] Comment:Non GFR Calc GFR Estimate If Black 80 >60 mL/min/1.7 m2 09/05/2017 7:44 AM [facility] Comment: GFR Calc Calcium 8.9 8.5 - 10.1 mg/dL 09/05/2017 7:44 AM [facility] Bilirubin Total 0.6 0.2 - 1.3 mg/dL 09/05/2017 7:44 AM [facility] Albumin 4.0 3.4 - 5.0 g/dL 09/05/2017 7:44 AM CROP OR LIVESTOCK TENANT FARMER [facility] Protein Total 7.4 6.8 - 8.8 g/dL 09/05/2017 7:44 AM [facility] Alkaline Phosphatase 65 40 - 150 U/L 09/05/2017 7:44 AM [facility] ALT 16 0 - 50 U/L 09/05/2017 7:44 AM [facility] AST 13 0 - 45 U/L 09/05/2017 7:44 AM [facility] Blood specimen (specimen) 09/05/2017 7:19 AM CROP OR LIVESTOCK TENANT FARMER 09/05/2017 7:20 AM CROP OR LIVESTOCK TENANT FARMER Ernestina Shah MD LAB - BLOOD ORDERAB LES Performing Organization Address City/State/[facility] Co de Phone Number [facility] [address] [place] [address], [facility] [phone] from Last 3 Months or Most Recently Relevant to Health Maintenance Advance Directives For more information, please contact: [phone] * Full Code (Latest Code Status on File) Date Activated Date Inactivated Comments 10/28/2021 6:54 PM 10/29/2021 4:58 PM All basic an d advanced life-sustaining interventions are performed as appropriate Question Answer Comments Code status determined by: Discussion with srinivasan nt/ legal decision maker Care Teams Para Machine Operator Relationship Specialty Start Date End Date Clinic, [facility] [address] [place], [place] [id number] PCP - General 09/05/17
--- OUTSIDE RECORDS SUMMARY | 2024-05-20 07:09 | XMS_ITS ---
Author Organization [facility] Address [address] [place] [address] Care Team Providers Care Poker Machine Attendant Name Role Phone Unavailable Unavailable Unavailable Surgery Details Not on file Complications Check Surgery Details section. Procedure Estimated Blood Loss Check Surgery Details section. Procedure Findings Check Surgery Details section. Procedure Specimens Taken Check Surgery Details section.
--- OUTSIDE RECORDS SUMMARY | 2024-05-20 07:09 | XMS_ITS | Clinical Summary ---
Author Organization [facility] Address [address] [place] [address] Care Team Providers Care Radiologist Name Role Phone Unavailable Primary Care Provider Unavailabl e Source Comments Patient records contain information from all sites at [facility]. For routine questions regarding patient records, call [phone] during business hours, M-F 8:00 AM - 5:00 PM Central Time. Record requests for emergency care only can be directed to [phone] at any time.[facility] Allergies [...] often do you attend chur ch or sikhism services? Never 11/26/2022 Do you belong to [...] and heating? Not hard at all 11/26/2022 [facility] of Occupat ional Health - Occupational Stress [...] or slept in a detention (including now)? No 11/26/2022 Nutrition Answer Date [...] Comments Blood Pressure 116/74 08/25/2019 2:01 PM BOOTH OPERATOR Pulse 76 08/25/2019 2:01 PM BOOTH OPERATOR Temperature - - Respiratory Rate - - Oxygen Saturation - - Inhaled Oxygen Concentration - - Weight 84.2 kg (185 lb 10 oz) 08/25/2019 2:01 PM BOOTH OPERATOR Height - - Body Mass Index - - Plan of Treatment Health Maintenance Due Date Last Done Comments Cervical Cancer Screening 1987 HIV Screening 1987 Hepatitis C Screening 1987 Lipid (Cholesterol) Screening 1987 Hepatitis B Vaccines (1 of 3 - 19+ 3-dose series) 2006 COVID-19 Vaccine (2022- season) 2023 04/14/2021, 03/24/2021 Depression Screening (Annual PHQ-2) 10/07/2023 Influenza Vaccine (#1) 2024 , 07/16/2019, 08/21/2018 DTaP,Tdap,and Td Vaccines (8 - Td or Tdap) 09/06/2032 09/06/2022, 12/18/2018, 03/17/2016, Additional history exists HPV Vaccines Aged Out No longer eligi ble based on patient's age to complete this topic Pneumococcal vaccine (0-64 years) Aged Out No longer eligible based on patient's age to complete this topic
--- OUTSIDE RECORDS SUMMARY | 2024-05-20 07:09 | XMS_ITS | Encounter Summary ---
Author Organization [facility] Address [address] [place] [address]. [place] [address] Care Team Providers Care Split Leather Mosser Name Role Phone [facility] Primary Care Provide r Ernestina Shah MD Unavailable [phone] Gia Martínez MD Unavailable Reason for Referral * - Closed Specialty Diagnoses / Procedures Referred By Contpete t Referred To Contact Diagnoses related condition Alberta Beckford NP [facility] [address] [place] [address] Fax: Referral ID Status Reason Start Date Expiration Date Visits Re quested Visits Authorized [id number] Closed 07/24/2018 07/24/2019 1 1 Question Answer MFM Location [facility] STONE 02/28/2019 Ultrasound NONE US PROC NONE MF Issue Maternal Medical Condition (enter details in Comments) - seizure disorder, , address medication safety, U/S recommendations fax [facility] Alberta Beckford [phone] Comments There is no height or weight on file to calculate BMI. >> Patient may proceed with recommendations for further testing as directed by the Maternal Medicine Specialist >> >> If requesting Echo: MFM will determine appropriate location for exam due to indication. >> If requesting Lung Maturity Amnio: If results indicate lung maturity, induction or C/S is recommended within 36 hours. Please schedule accordingly. Dear Patient: Please be aware that coverage of these services is subject to the terms and limitations of your health insurance plan. Call member services at your health plan with any benefit or coverage questions. Please bring the following to your appointment: >> Any x-rays, CTs or MRIs which have been performed. Contact the facility where they were done to arrange for bead picker prior to your scheduled appointment. Any new CT, MRI or other procedures ordered by your specialist must be performed at a [facility] facility or coordinated by your clinic's referral office. >> List of current medications >> This referral request >> Any documents/labs given to you for this referral Encounter Details Date Type Department Care Team (Late st Contact Info) Description 07/24/2018 Orders [facility] [place] [address] [facility] [address] [place] [address] Alberta Beckford NP [facility] [address] [place] [address] related condition (Primary Dx) Social History Tobacco Use Types Packs/Day Years Used Date Smoking Tobacco: Never Alcohol Use Standard Drinks/Week Comments Yes 0 (1 standard drink = 0.6 oz pur e alcohol) occ Sex and Gender Information Value Date Recorded Sex Assigned at Not on file Gender Identity Not on file Sexual Orientation Not on file documented as of this encounter Plan of Treatment Scheduled Referrals Name Type Priority Associated Diagnoses Orde r Schedule [facility] REFERRAL- Referral Routine related condition Ordered: 07/24/2018 documented as of this encounter Visit Diagnoses Diagnosis related condition- Primary Unspecified complication of , unspecified as to episode of care documented in this encounter Care Teams Split Leather Mosser Relationship Specialty Start Date End Date [facility] [address] [place], [place] [id number] PCP - General 09/05/17 Ernestina Shah MD [facility] [address] [facility] [address] [place] [address] Neurology 09/05/17 10/28/18 Gia Martínez MD [address] [address] Assigned OBGYN Provider 10/29/21 documented as of this encounter
--- NOTE | 2024-05-20 07:15 | CRLHL7_ITS ---
For Patients: As a result of the Century Cures Act, medical imaging exams and procedure reports are released immediately into your electronic medical record. You may view this report before your referring provider. If you have questions, please contact your health care provider. INDICATION: pelvic and peroneal pain, left side pain COMPARISON: none TECHNIQUE: 2D sevilla scale and color Doppler images were acquired of the pelvis using a transabdominal and transvaginal approach. FINDINGS: Sonographic images demonstrate a normal size and smooth outer contour of the uterus. Uterus measures 8.6 cm in length by 4.4 cm in AP diameter by 5.5 cm in transverse dimension. The myometrium has a normal uniform echotexture. The endometrial lining appears normal and measures 2.3 mm in composite thickness. IUD is present in good position within the endometrial canal. The right ovary measures 3.5 x 1.8 x 2.5 cm in size and the left ovary measures 3.1 x 1.7 x 2.6 cm. The ovaries demonstrate normal arterial and venous blood flow on color Doppler analysis. There are no suspicious fluid collections within the cul-de-sac. Simple left ovarian cyst measures 1.7 x 1.4 x 1.4 cm. IMPRESSION: Simple left ovarian cyst measures 17 millimeters. No excess pelvic free fluid or adnexal mass. Normal position of the IUD within the endometrial canal. No uterine fibroid. Dictated by Chapo Vickers MD @ 05/20/2024 9:57:51 AM (Electronically Signed)
== END 2024-05-20 07:07 | disposition home or self-care (01) ==
LOC: US 07:07
PROVIDERS: PCP Family Medicine; Visit Provider Obstetrics & Gynecology
DX: R10.2 Pelvic and perineal pain (principal); N83.202 Unspecified ovarian cyst, left side
CPT/HCPCS: 76830; 76856

== ENCOUNTER 2024-07-01 17:59 | Emergency (ER) | payer BC, SELFPAY ==
[2024-07-01 18:08] VITALS: BP 125/80; PULSE 60; RESP 18; TEMP 36.1; O2SAT 100; BMI 30.9
--- NOTE | 2024-07-01 18:44 | CRLHL7_ITS ---
For Patients: As a result of the Century Cures Act, medical imaging exams and procedure reports are released immediately into your electronic medical record. You may view this report before your referring provider. If you have questions, please contact your health care provider. INDICATION: Left back and abdominal pain. History of stones. TECHNIQUE: CT of the abdomen and pelvis without IV contrast. Coronal and sagittal reconstructions. COMPARISON: None. FINDINGS: Liver: Unremarkable. Gallbladder and bile ducts: Unremarkable. No biliary dilatation. Spleen: Unremarkable. Pancreas: Unremarkable. Adrenal glands: Unremarkable. Kidneys, Ureters, and Bladder: There is a 3 mm obstructing stone at the inner orifice of the left ureterovesicular junction with moderate to severe upstream left hydroureteronephrosis (series 2 image 133). No right hydronephrosis or ureteral dilation. Small bilateral nonobstructing renal calyceal stones. Underdistended urinary bladder. Reproductive organs: IUD in the uterus. GI tract/Peritoneum: Small hiatal hernia. No small bowel dilation. The colon is diffusely decompressed. Negative appendix. No intraperitoneal free air. Trace free fluid in the pelvis is likely physiologic. Vasculature: Abdominal aorta is normal in caliber. Lymph nodes: No lymphadenopathy. Abdominal Wall: Small fat containing umbilical hernia. Bones: Unremarkable. Lower chest: Unremarkable. IMPRESSION: 1. 3 mm obstructing stone at the left UVJ with moderate to severe left hydroureteronephrosis. 2. Small bilateral nonobstructing renal calyceal stones. Please note that all CT scans at this facility use dose modulation, iterative reconstruction, and/or weight-based dosing when appropriate to reduce radiation dose to as low as reasonably achievable. Dictated by Mely Donnelly MD @ 07/01/2024 8:55:53 PM (Electronically Signed)
[2024-07-01] MEDS: 0.9 % SODIUM CHLORIDE 1000 ml 1,000 ML IV (18:57)
[2024-07-01] MEDS: ONDANSETRON 2 MG/ML inj 4 MG IVP (18:57)
[2024-07-01] MEDS: KETOROLAC 15 MG/ML inj IVP (18:57)
[2024-07-01 19:00] LABS: Appearance Urine Cloudy (Clear); Bilirubin Urine Negative (Negative); Blood Urine 3+ (Negative); Color Urine Yellow (Yellow); Glucose Urine Negative (Negative); Ketones Urine 3+ (Negative); Leukocyte Esterase Urine Negative (Negative); Nitrite Urine Negative (Negative); Protein Urine 1+ (Negative); Specific Gravity Urine 1.025 (1.000-1.030); Urobilinogen Urine 0.2 (0.2-1.0)
--- NOTE | 2024-07-01 19:00 | ED.GENADULT ---
HPI - General Adult General Chief complaint: Flank Pain Stated complaint: L back and abdomen pain, decr urine, shaking Time Seen by Provider: 07/01/24 18:36 Source: patient, RN notes reviewed and old records reviewed Mode of arrival: ambulatory Limitations: no limitations History of Present Illness HPI narrative: Patient is a 38-year-old woman who presents for evaluation of left-sided abdominal and flank pain. She says this started a couple of hours ago when she was at work. She had been fine throughout the day and then developed this pain in the left lower abdomen. She does not really have any abdominal pain now but does have pretty significant back pain that started about an hour after the abdominal pain. She has remote history of a kidney stone and thinks this may be feel similar. She has had some nausea, vomited once in the waiting room. She has had some chills, has not felt like she has had a fever. She has not had any urinary symptoms such as dysuria, frequency urgency or hematuria. In fact, she has not felt like she could pee for the past couple of hours. She says she has had normal bowel movements, no diarrhea or constipation. She denies abdominal surgeries. She does note that she has a history of seizures which she says are well controlled. She takes Keppra and lamotrigine for seizure prevention. Related Data Home Medications ?Medication ?Instructions ?Recorded ?Confirmed lamotrigine 200 mg tablet 400 mg PO BID 04/02/22 07/01/24 levetiracetam 1,000 mg tablet 1,000 mg PO BID 04/02/22 07/01/24 acetazolamide 500 mg 500 mg PO BID 10/30/22 07/01/24 capsule,extended release levonorgestrel 21 mcg/24 hr (up to 1 device intrauterine ONCE 06/19/23 05/04/24 8 years) 52 mg intrauterine device (Mirena) Previous Rx's ?Medication ?Instructions ?Recorded acetaminophen 500 mg tablet 1,000 mg (2 x 500 mg) PO Q6H PRN 10/31/22 #0 tabs ibuprofen 600 mg tablet 600 mg PO Q6H PRN #0 tabs 10/31/22 albuterol sulfate 90 mcg/actuation 2 puff inhalation Q4H PRN 10/02/23 aerosol inhaler shortness of breath or wheezing #8.5 grams fluconazole 150 mg tablet 150 mg PO Q3D 2 doses #2 tabs 05/06/24 Allergies Allergy/AdvReac Type Severity Reaction Status Date / Time No Known Drug Allergies Allergy Verified 07/01/24 18:12 Review of Systems Status of ROS: Reports: 10 or more systems reviewed and unremarkable except as noted in History and below [facility] Medical History Urinary incontinence ?R32 - Unspecified urinary incontinence (ICD-10) 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 - Herpesviral infection of urogenital system, unspecified (ICD-10) Depression with anxiety ?F41.8 - Other specified anxiety disorders (ICD-10) Incontinence of feces ?R15.9 - Full incontinence of feces (ICD-10) History of varicella ?Z86.19 - Personal history of other infectious and parasitic diseases (ICD-10) Fourth degree perineal laceration ?O70.3 - Fourth degree perineal laceration during delivery (ICD-10) Surgical History History of tonsillectomy ?Z90.89 - Acquired absence of other organs (ICD-10) Family History Father Diabetes High cholesterol Stroke Mother Osteoporosis Family/Other Breast cancer Mental disorder Stroke Trisomy 20 Social History Narrative: - 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 In general, an alert, well-appearing patient. She is holding an emesis bag. Head: Normocephalic, atraumatic. Eyes: Pupils are equal reactive. Extraocular movements are full. Conjunctivae are normal. ENT: Mucous membranes are moist. Throat is normal. Neck: Supple without lymphadenopathy. Heart: Regular rate and rhythm. No murmur or rub. Lungs: Clear bilaterally. No increased work of breathing, crackles or wheezes. Abdomen: Soft and nontender. No CVA tenderness. Extremities: Well perfused. No edema. No calf tenderness. Pulses intact. Neurologic: Patient is alert and oriented to person and place. Speech is fluent. Face is symmetric. Moves all extremities equally. Affect: Normal. Skin: Warm and dry. Well perfused. Const: Vital Signs, click to edit/add: Vital Signs - 24 hr 07/01/24 18:08 07/01/24 20:51 Temperature 97.0 F L 97.8 F Pulse Rate [Right Pulse Oximeter] 60 68 Respiratory Rate 18 18 Blood Pressure [Ri ght Upper Arm] 125/80 103/74 Pulse Oximetry 100 99 Oxygen Delivery Me thod Room Air Room Air Documenting provider has reviewed patient's vital signs: yes Course Course ED Course: Will place an IV here, I gave Toradol and Zofran as well as a L normal saline. If she needs further pain management we can address that. CT abdomen ordered without contrast to evaluate for possible kidney stone, hydronephrosis, pyelonephritis, or splenic abnormality. UA and urine test pending. CT by my review show significant hydronephrosis on the left, final radiology read as follows:Patient: BRAXTON AYALA Facility: [facility] Site . Site : 1987 Study: CT-Abdomen/Pelvis WITHOUT-07/01/2024 7:27:34 PM Ordering Physician: Nelson Manley Final Report: INDICATION: Left back and abdominal pain. History of stones. TECHNIQUE: CT of the abdomen and pelvis without IV contrast. Coronal and sagittal reconstructions. COMPARISON: None. FINDINGS: Liver: Unremarkable. Gallbladder and bile ducts: Unremarkable. No biliary dilatation. Spleen: Unremarkable. Pancreas: Unremarkable. Adrenal glands: Unremarkable. Kidneys, Ureters, and Bladder: There is a 3 mm obstructing stone at the inner orifice of the left ureterovesicular junction with moderate to severe upstream left hydroureteronephrosis (series 2 image 133). No right hydronephrosis or ureteral dilation. Small bilateral nonobstructing renal calyceal stones. Underdistended urinary bladder. Reproductive organs: IUD in the uterus. GI tract/Peritoneum: Small hiatal hernia. No small bowel dilation. The colon is diffusely decompressed. Negative appendix. No intraperitoneal free air. Trace free fluid in the pelvis is likely physiologic. Vasculature: Abdominal aorta is normal in caliber. Lymph nodes: No lymphadenopathy. Abdominal Wall: Small fat containing umbilical hernia. Bones: Unremarkable. Lower chest: Unremarkable. IMPRESSION: 1. 3 mm obstructing stone at the left UVJ with moderate to severe left hydroureteronephrosis. 2. Small bilateral nonobstructing renal calyceal stones. Please note that all CT scans at this facility use dose modulation, iterative reconstruction, and/or weight-based dosing when appropriate to reduce radiation dose to as low as reasonably achievable. Dictated by Mely Donnelly MD @ 07/01/2024 8:55:53 PM (Electronic Signature) UA did return showing 5-10 red cells, 25-50 white blood cells, moderate squamous epithelial cells and bacteria. test was negative. Urine is fairly contaminated, she notes that since the of her 1st daughter she has had some problems with fecal leakage related to what sounds like a 4th degree tear. Unclear to me whether or not this urine represents true infection or whether this is more contaminant. She also mentioned that over the past year so she has been having some unexplained left lower quadrant pain which bothers her infrequently but when it is there is fairly severe, will last for a few hours and then resolve. She had a pelvic ultrasound, but has not had any other significant workup for that. Given the significant hydronephrosis, I have elected to add on some labs. Labs are overall reassuring. White blood cell count is mildly elevated at 13, renal function is normal, lactate is 0.7 and CRP is less than 0.5. She continues to look well and has normal vital signs. I think it is reasonable to let her go home, will treat with Keflex while we await the urine culture. I have asked her to follow-up with urology given the significant hydronephrosis and hydroureter with only a couple of hours of symptoms which seems just a little unusual to me. She has been having this pain over the past year which I cannot imagine would be related to this particular stone which is small and should pass, but perhaps or something else going on with the left collecting system that is contributing to that hydronephrosis and intermittent pain. Have stressed with her that she needs to come back right away if she is feeling worse, develops fevers, shaking chills, vomiting, severe worsening pain. Prescribed Keflex, q.i.d. times 10 days, Zofran and oxycodone 8 tablets from [facility]. Vital Signs Vital signs: Initial Vital Signs Temperature 97.0 F L 07/01/24 18:08 Temperature Source Temporal Artery Scan 07/01/24 18:08 Pulse Rate 60 07/01/24 18:08 Pulse Rhythm Regular 07/01/24 18:08 Respiratory Rate 18 07/01/24 18:08 Blood Pressure 125/80 07/01/24 18:08 Blood Pressure Mean 95 07/01/24 18:08 Blood Pressure Position Sitting 07/01/24 18:08 Pulse Oximetry 100 07/01/24 18:08 Oxygen Delivery Method Room Air 07/01/24 18:08 Vital Signs Temperature 97.0 F L 07/01/24 18:08 Pulse Rate 60 07/01/24 18:08 Respiratory Rate 18 07/01/24 18:08 Blood Pressure 125/80 07/01/24 18:08 Pulse Oximetry 100 07/01/24 18:08 Oxygen Delivery Method Room Air 07/01/24 18:08 Temperature 97.8 F 07/01/24 20:51 Pulse Rate 68 07/01/24 20:51 Respiratory Rate 18 07/01/24 20:51 Blood Pressure 103/74 07/01/24 20:51 Pulse Oximetry 99 07/01/24 20:51 Oxygen Delivery Method Room Air 07/01/24 20:51 Medications Administered Medications: Discontinued Medications Generic Name Dose Route Start Last Admin Trade Name Freq PRN Reason Stop Dose Admin Sodium Chloride 1,000 mls @ 1,000 mls/hr 07/01/24 18:45 07/01/24 19:57 0.9 % Sodium Chloride 1000 Ml IV 07/01/24 19:44 Infused .Q1H OLEGARIO Infusion Ketorolac Tromethamine 15 mg 07/01/24 18:44 07/01/24 18:57 Ketorolac 15 Mg/Ml Inj IVP 07/01/24 18:45 15 mg ONCE ONE Administration Ondansetron HCl 4 mg 07/01/24 18:44 07/01/24 18:57 Ondansetron 2 Mg/Ml Inj IVP 07/01/24 18:45 4 mg ONCE ONE Administration Medical Decision Making Lab Data Labs: Lab Results 07/01/24 07/01/24 Range/Units 21:43 Unknown WBC 13.32 H (4.50-11.00) K/uL RBC 4.19 (4.00-5.20) m/uL Hgb 12.5 (12.0-16.0) gm/dL Hct 38.7 (33.0-51.0) % MCV 92 (80-100) fL MCH 30 (26-34) pg MCHC 32 (32-36) gm/dL RDW Coeff of Qing 13.3 (11.5-15.5) % Plt Count 221 (140-440) K/uL Neut % (Auto) 91.6 H (42.0-72.0) % Lymph % (Auto) 5.9 L (20-44) % [place] % (Auto) 1.9 (0.0-11.0) % Eos % (Auto) 0.3 (0.0-7.0) % Baso % (Auto) 0.2 (0.0-3.0) % Neut # (Auto) 12.20 H (1.7-7.0) K/uL Lymph # (Auto) 0.80 L (0.90-2.90) K/uL [place] # (Auto) 0.30 (0.00-0.90) K/UL Eos # (Auto) 0.00 (0.00-0.50) K/uL Baso # (Auto) 0.00 (0.00-0.30) K/uL Abs Immat Gran (auto) 0.00 (0.00-0.30) K/uL Imm/Tot Granulo (auto) 0.1 % Sodium 138 (135-149) mmol/L Potassium 4.1 (3.6-5.1) mmol/L Chloride 113 (96-114) mmol/L Carbon Dioxide 15 L (20-32) mmol/L Anion Gap 10 (7-15) mEq/L BUN 13 (5-24) mg/dL Creatinine 0.9 (0.5-1.5) mg/dL Estimated Creat Clear 74.62 Estimated GFR 85 ml/min Glucose 113 (60-115) mg/dL Lactate 0.7 (0.5-1.9) mmol/L Calcium 8.7 (8.4-10.6) mg/dL C-Reactive Protein < 0.5 L (0.5-1.0) mg/dL Urine Color Yellow (Yellow) Urine Appearance Cloudy A (Clear) Urine pH 7.0 (5.0-8.5) Ur Specific [place] 1.025 (1.000-1.030) Urine Protein 1+ A (Negative) Urine Glucose (UA) Negative (Negative) Urine Ketones 3+ A (Negative) Urine Blood 3+ A (Negative) Urine Nitrite Negative (Negative) Urine Bilirubin Negative (Negative) Urine Urobilinogen 0.2 (0.2-1.0) Ur Leukocyte Esterase Negative (Negative) Urine RBC 5-10 A (0-2) Urine WBC 25-50 A (0-5) Ur Squamous Epith Cells Moderate A (None-Few) Urine Bacteria Moderate A (None) Urine HCG, Qual Negative (Negative) Discharge Plan Discharge Clinical Impression: Left ureteral calculus, Obstructive hydronephrosis Patient Disposition: Home, Self-Care Condition: Improved Instructions: Hydronephrosis (ED), Ureteral Stones (ED) Additional Instructions: Antibiotic as prescribed. Ibuprofen 400 mg 3 times daily with food. Oxycodone as needed for uncontrolled pain. Zofran as needed for nausea or vomiting. Strain your urine, push fluids. This stone should pass on its own based on its size, but based on the significant swelling of your ureter and kidney on CT, and your symptoms over the past year, would recommend Urology follow-up. You can follow-up with [facility], phone number [facility] [phone] to schedule. If at any time you have severe uncontrolled pain, new symptoms such as fever, shaking chills, uncontrolled vomiting or other worsening symptoms, return to the emergency department right away. ? Prescriptions: No Action levetiracetam 1,000 mg tablet 1,000 mg PO BID lamotrigine 200 mg tablet 400 mg PO BID Mirena 21 mcg/24 hours (8 yrs) 52 mg intrauterine device 1 device intrauterine ONCE Rx Instructions: as a single dose albuterol sulfate 90 mcg/actuation HFA aerosol inhaler 2 puff inhalation Q4H PRN (Reason: shortness of breath or wheezing) Qty: 8.5 1RF acetazolamide 500 mg capsule, extended release 500 mg PO BID Patient Comments: TAKE 1 CAPSULE BY MOUTH TWICE DAILY acetaminophen 500 mg Tablet 1,000 mg PO Q6H PRNQty: 0 0RF ibuprofen 600 mg Tablet 600 mg PO Q6H PRNQty: 0 0RF fluconazole 150 mg tablet 150 mg PO Q3D Qty: 2 3RF Rx Instructions: Take one tablet today, take second tablet in 3 days. Follow Up/Referrals: Chapo Membreno MD [Primary Care Provider] - Stand Alone Forms: [facility] Info Instructions
--- OUTSIDE RECORDS SUMMARY | 2024-07-01 19:01 | XMS_ITS | Encounter Summary ---
Author Organization [facility] Address [address] [place] [address]. [place] [address] Care Team Providers Care Webbing Supervisor Name Role Phone [facility] Primary Care Provide r Ernestina Shah MD Unavailable [phone] Gia Martínez MD Unavailable Reason for Referral * - Closed Specialty Diagnoses / Procedures Referred By Contpete t Referred To Contact Diagnoses related condition Alberta Beckford NP [facility] [address] [place] [address] Fax: Referral ID Status Reason Start Date Expiration Date Visits Re quested Visits Authorized [id number] Closed 07/24/2018 07/24/2019 1 1 Question Answer MFM Location [facility] STONE 02/28/2019 Ultrasound NONE US PROC NONE MF Issue Maternal Medical Condition (enter details in Comments) - seizure disorder, , address medication safety, U/S recommendations fax [facility] Alberta Beckford [phone] Comments There is no height or weight [...] where they were done to arrange for hop picker prior to your scheduled appointment. Any new CT, MRI or other procedures ordered by your specialist must be performed at a [facility] facility or coordinated by your clinic's referral office. >> List of current medications >> This referral request >> Any documents/labs given to you for this referral Encounter Details Date Type Department Care Team (Late st Contact Info) Description 07/24/2018 Orders [facility] [place] [address] [facility] [address] [place] [address] Alberta Beckford NP [facility] [address] [place] [address] related condition (Primary Dx) Social History Tobacco [...] care documented in this encounter Care Teams Webbing Supervisor Relationship Specialty Start Date End Date [facility] [address] [place], [place] [id number] PCP - General 09/05/17 Ernestina Shah MD [facility] [address] [facility] [address] [place] [address] Neurology 09/05/17 10/28/18 Gia Martínez MD [address] [address] Assigned OBGYN Provider 10/29/21 documented as of this encounter
--- OUTSIDE RECORDS SUMMARY | 2024-07-01 19:01 | XMS_ITS | Referral Summary ---
Author Organization [facility] Address [address] [place] [address]. [place] [address] Care Team Providers Care U.[place]. Senator Name Role Phone Clinic, [facility] Primary Care Provide r Allergies No known [...] Blood Pressure 107/66 10/29/2021 11:27 AM MANAGER FIRE Pulse 57 06/16/2013 7:52 AM CDT Temperature 37 ??C (98.6 ??F) 10/29/2021 6:23 AM MANAGER FIRE Respiratory Rate 99 10/29/2021 8:38 AM MANAGER FIRE Oxygen Saturation 100% 10/29/2021 12:01 PM MANAGER FIRE Inhaled Oxygen Concentration - - Weight 79.4 kg (175 lb) 10/28/2021 9:00 AM MANAGER FIRE Height 165.1 cm (5' 5) 10/28/2021 9:00 AM MANAGER FIRE Body Mass Index 29.12 10/28/2021 9:00 AM MANAGER FIRE Plan of Treatment Not on file Procedures Procedure Name Priority Date/Time Associated Diagnosis Comments HEPATITIS C (HIM EXTERNAL RESULT) Routine 07/25/2021 3:50 PM CDT HIV 1&2 ANTIBODY (EXTERNAL RESULT) Routine 07/25/2021 12:00 PM CDT COMPREHENSIVE METABOLIC PANEL Routine 09/05/2017 7:19 AM MANAGER FIRE 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) from Last 3 Months or Most Recently Relevant to Health Maintenance Results * Hepatitis C (HIM External Result) (07/25/2021 3:50 PM CDT) Hep C HIM See Scanned Document [facility] 07/25/2021 3:50 PM CDT Narrative [facility] - 07/25/2021 3:50 PM CDT LAB RESULT [facility] Provider Outside LAB - HIM EXTERNAL R ESULT [facility] [address] [place] [address], [facility] [phone] * HIV-1 Antibody (External Result) (07/25/2021 12:00 PM CDT) HIV 1&2 Antibody (External) Negative Nonreactive [facility] 07/25/2021 12:0 0 PM CDT January Brandy LAB - HIM EXTERNAL R ESULT [facility] [address] [place] [address], [facility] [phone] * (ABNORMAL) Comprehensive metabolic panel (BMP + Alb, Alk Phos, ALT, AST, Total. Bili, TP) (09/05/2017 7:19 AM MANAGER FIRE) Sodium 141 133 - 144 mmol/L 09/05/2017 7:44 AM [facility] Potassium 3.7 3.4 - 5.3 mmol/L 09/05/2017 7:44 AM [facility] Chloride 114(H) 94 - 109 mmol/L 09/05/2017 7:44 AM [facility] Carbon Dioxide 20 20 - 32 mmol/L 09/05/2017 7:44 AM [facility] Anion Gap 7 3 - 14 mmol/L 09/05/2017 7:44 AM [facility] Glucose 93 70 - 99 mg/dL 09/05/2017 7:44 AM [facility] Urea Nitrogen 13 7 - 30 mg/dL 09/05/2017 7:44 AM [facility] Creatinine 0.98 0.52 - 1.04 mg/dL 09/05/2017 7:44 AM [facility] GFR Estimate 66 >60 mL/min/1.7 m2 09/05/2017 7:44 AM [facility] Comment:Non GFR Calc GFR Estimate If Black 80 >60 mL/min/1.7 m2 09/05/2017 7:44 AM [facility] Comment: GFR Calc Calcium 8.9 8.5 - 10.1 mg/dL 09/05/2017 7:44 AM [facility] Bilirubin Total 0.6 0.2 - 1.3 mg/dL 09/05/2017 7:44 AM [facility] Albumin 4.0 3.4 - 5.0 g/dL 09/05/2017 7:44 AM MANAGER FIRE [facility] Protein Total 7.4 6.8 - 8.8 g/dL 09/05/2017 7:44 AM [facility] Alkaline Phosphatase 65 40 - 150 U/L 09/05/2017 7:44 AM [facility] ALT 16 0 - 50 U/L 09/05/2017 7:44 AM [facility] AST 13 0 - 45 U/L 09/05/2017 7:44 AM [facility] Blood specimen (specimen) 09/05/2017 7:19 AM MANAGER FIRE 09/05/2017 7:20 AM MANAGER FIRE Ernestina Shah MD LAB - BLOOD ORDERAB LES Performing Organization Address City/State/[facility] Co de Phone Number [facility] [address] [place] [address], [facility] [phone] from Last 3 Months or Most Recently Relevant to Health Maintenance Advance Directives For more information, please contact: [phone] * Full Code (Latest Code Status on File) Date Activated Date Inactivated Comments 10/28/2021 6:54 PM 10/29/2021 4:58 PM All basic an d advanced life-sustaining interventions are performed as appropriate Question Answer Comments Code status determined by: Discussion with srinivasan nt/ legal decision maker Care Teams U.[place]. Senator Relationship Specialty Start Date End Date Clinic, [facility] [address] [place], [place] [phone] PCP - General 09/05/17
--- OUTSIDE RECORDS SUMMARY | 2024-07-01 19:01 | XMS_ITS | Clinical Summary ---
Author Organization [facility] Address [address] [place] [address] Care Team Providers Care Forestry Tree Pruner Name Role Phone Unavailable Primary Care Provider Unavailabl e Source Comments Patient records contain information from all sites at [facility]. For routine questions regarding patient records, call [phone] during business hours, M-F 8:00 AM - 5:00 PM Central Time. Record requests for emergency care only can be directed to [phone] at any time.[facility] Allergies No known active allergies Medications [...] often do you attend chur ch or church services? Never 11/26/2022 Do you belong to any clubs o r organizations such as roman catholic groups, unions, [...] and heating? Not hard at all 11/26/2022 [facility] [place] of Occupat ional Health - Occupational Stress [...] Comments Blood Pressure 116/74 08/25/2019 2:01 PM MULTI SLIDE MACHINE TENDER Pulse 76 08/25/2019 2:01 PM MULTI SLIDE MACHINE TENDER Temperature - - Respiratory Rate - - Oxygen Saturation - - Inhaled Oxygen Concentration - - Weight 84.2 kg (185 lb 10 oz) 08/25/2019 2:01 PM MULTI SLIDE MACHINE TENDER Height - - Body Mass Index - - Plan of Treatment Health Maintenance Due Date Last Done Comments Cervical Cancer Screening 1987 HIV Screening 1987 Hepatitis C Screening 1987 Lipid (Cholesterol) Screening 1987 Hepatitis B Vaccines (1 of 3 - 19+ 3-dose series) 2006 Depression Screening (Annual PHQ-2) 10/07/2023 COVID-19 Vaccine (2023- season) 2024 04/14/2021, 03/24/2021 Influenza Vaccine (#1) 2024 , 07/16/2019, 08/21/2018 DTaP,Tdap,and Td Vaccines (8 - Td or Tdap) 09/06/2032 09/06/2022, 12/18/2018, 03/17/2016, Additional history exists HPV Vaccines Aged Out No longer eligi ble based on patient's age to complete this topic Pneumococcal vaccine (0-64 years) Aged Out No longer eligible based on patient's age to complete this topic
--- OUTSIDE RECORDS SUMMARY | 2024-07-01 19:01 | XMS_ITS | Clinical Summary ---
Author Organization [facility] Address [address] [place] [address]. [place] [address] Care Team Providers Care Comparative Sociology Professor Name Role Phone Clinic, [facility] Primary Care Provide r Allergies No [...] Comments Blood Pressure 107/66 10/29/2021 11:27 AM MARRIAGE AND FAMILY COUNSELOR Pulse 57 06/16/2013 7:52 AM CDT Temperature 37 ??C (98.6 ??F) 10/29/2021 6:23 AM MARRIAGE AND FAMILY COUNSELOR Respiratory Rate 99 10/29/2021 8:38 AM MARRIAGE AND FAMILY COUNSELOR Oxygen Saturation 100% 10/29/2021 12:01 PM MARRIAGE AND FAMILY COUNSELOR Inhaled Oxygen Concentration - - Weight 79.4 kg (175 lb) 10/28/2021 9:00 AM MARRIAGE AND FAMILY COUNSELOR Height 165.1 cm (5' 5) 10/28/2021 9:00 AM MARRIAGE AND FAMILY COUNSELOR Body Mass Index 29.12 10/28/2021 9:00 AM MARRIAGE AND FAMILY COUNSELOR Plan of Treatment Health Maintenance Due Date Last Done Comments ADVANCE CARE PLANNING 1987 ANNUAL REVIEW OF HM ORDERS 1987 YEARLY PREVENTIVE VISIT 1987 HEPATITIS B IMMUNIZATION (1 of 3 - 19+ 3-dose series) 2006 PAP 2008 GLUCOSE 09/05/2020 09/05/2017, 06/07, 11/10/2007, Additional history exists PHQ-2 (once per calendar year) 2023 COVID-19 Vaccine (2023- season) 2024 04/14/2021, 03/24/2021 INFLUENZA VACCINE (#1) 2024 , 07/16/2019, 08/21/2018 [...] COMPREHENSIVE METABOLIC PANEL Routine 09/05/2017 7:19 AM MARRIAGE AND FAMILY COUNSELOR 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) from Last 3 Months or Most Recently Relevant to Health Maintenance Results * Hepatitis C (HIM External Result) (07/25/2021 3:50 PM CDT) Hep C HIM See Scanned Document [facility] 07/25/2021 3:50 PM CDT Narrative [facility] - 07/25/2021 3:50 PM CDT LAB RESULT [facility] Provider Outside LAB - [facility] EXTERNAL R ESULT Performing Organization Address City/[facility]/ZIP Co de Phone Number [facility] [address] [place] [address], [facility] [phone] * HIV-1 Antibody (External Result) (07/25/2021 12:00 PM CDT) HIV 1&2 Antibody (External) Negative Nonreactive [facility] 07/25/2021 12:0 0 PM CDT Nabila Brandy LAB - HIM EXTERNAL R ESULT Performing Organization Address City/[facility]/ZIP Co de Phone Number [facility] [address] [place] [address], [facility] [phone] * (ABNORMAL) Comprehensive metabolic panel (BMP + Alb, Alk Phos, ALT, AST, Total. Bili, TP) (09/05/2017 7:19 AM MARRIAGE AND FAMILY COUNSELOR) Sodium 141 133 - 144 mmol/L 09/05/2017 7:44 AM MARRIAGE AND FAMILY COUNSELOR [facility] Potassium 3.7 3.4 - 5.3 mmol/L 09/05/2017 7:44 AM [facility] Chloride 114(H) 94 - 109 mmol/L 09/05/2017 7:44 AM [facility] Carbon Dioxide 20 20 - 32 mmol/L 09/05/2017 7:44 AM [facility] Anion Gap 7 3 - 14 mmol/L 09/05/2017 7:44 AM [facility] Glucose 93 70 - 99 mg/dL 09/05/2017 7:44 AM [facility] Urea Nitrogen 13 7 - 30 mg/dL 09/05/2017 7:44 AM [facility] Creatinine 0.98 0.52 - 1.04 mg/dL 09/05/2017 7:44 AM [facility] GFR Estimate 66 >60 mL/min/1.7 m2 09/05/2017 7:44 AM [facility] Comment:Non GFR Calc GFR Estimate If Black 80 >60 mL/min/1.7 m2 09/05/2017 7:44 AM [facility] Comment: GFR Calc Calcium 8.9 8.5 - 10.1 mg/dL 09/05/2017 7:44 AM [facility] Bilirubin Total 0.6 0.2 - 1.3 mg/dL 09/05/2017 7:44 AM [facility] Albumin 4.0 3.4 - 5.0 g/dL 09/05/2017 7:44 AM [facility] Protein Total 7.4 6.8 - 8.8 g/dL 09/05/2017 7:44 AM [facility] Alkaline Phosphatase 65 40 - 150 U/L 09/05/2017 7:44 AM [facility] ALT 16 0 - 50 U/L 09/05/2017 7:44 AM [facility] AST 13 0 - 45 U/L 09/05/2017 7:44 AM [facility] Blood specimen (specimen) 09/05/2017 7:19 AM MARRIAGE AND FAMILY COUNSELOR 09/05/2017 7:20 AM MARRIAGE AND FAMILY COUNSELOR Ernestina Shah MD LAB - BLOOD ORDERAB LES [facility] [address] [place] [address], [facility] [phone] from Last 3 Months or Most Recently Relevant to Health Maintenance Advance Directives For more information, please contact: [phone] * Full Code (Latest Code Status on File) Date Activated Date Inactivated Comments 10/28/2021 6:54 PM 10/29/2021 4:58 PM All basic an d advanced life-sustaining interventions are performed as appropriate Question Answer Comments Code status determined by: Discussion with srinivasan nt/ legal decision maker Care Teams Comparative Sociology Professor Relationship Specialty Start Date End Date Clinic, [facility] [address] [place] [address] PCP - General 09/05/17
--- OUTSIDE RECORDS SUMMARY | 2024-07-01 19:01 | XMS_ITS | Referral Summary ---
Author Organization [facility] Address [address] [place] [address] Care Team Providers Care Nurse Aide Evaluator Name Role Phone Unavailable Primary Care Provider Unavailabl e Source Comments Patient records contain information from all sites at [facility]. For routine questions regarding patient records, call [phone] during business hours, M-F 8:00 AM - 5:00 PM Central Time. Record requests for emergency care only can be directed to [phone] at any time.[facility] Allergies No known active allergies Medications Medication [...] any clubs o r organizations such as jewish groups, unions, fraternal [...] and heating? Not hard at all 11/26/2022 [facility] [place] of Occupat ional Health - Occupational Stress [...] or slept in a alf (including now)? No 11/26/2022 Nutrition Answer Date [...] Comments Blood Pressure 116/74 08/25/2019 2:01 PM DIET CLERK Pulse 76 08/25/2019 2:01 PM DIET CLERK Temperature - - Respiratory Rate - - Oxygen Saturation - - Inhaled Oxygen Concentration - - Weight 84.2 kg (185 lb 10 oz) 08/25/2019 2:01 PM DIET CLERK Height - - Body Mass Index - - Plan of Treatment Not on file
--- OUTSIDE RECORDS SUMMARY | 2024-07-01 19:01 | XMS_ITS ---
Author Organization [facility] Address [address] [place] [address] Care Team Providers Care Treatment Plant Operator Name Role Phone Unavailable Unavailable Unavailable Surgery Details Not on file Complications Check Surgery Details section. Procedure Estimated Blood Loss Check Surgery Details section. Procedure Findings Check Surgery Details section. Procedure Specimens Taken Check Surgery Details section.
--- OUTSIDE RECORDS SUMMARY | 2024-07-01 19:01 | XMS_ITS | Clinical Summary ---
Author Organization [facility] Address [place], [place] [address] Care Team Providers Care [employer] Market Insights Name Role Phone Juan Alberto Jackson MD Primary Care Provider [phone] Allergies No known active allergies Medications Medication [...] 2005 Tetanus booster 2007 COVID-19 vaccine series (2022- season) 2024 Influenza for age 9-49 06/07/2024 Pap test for age 21-65 03/19/2025 , 03/19/2022 Pneumococcal series for age 6-64 Aged Out No longer eligible b ased on patient's age to complete this topic Procedures Procedure Name Priority Date/Time Associated Diagnosis Comments HPV HIGH RISK Routine 03/19/2022 11:45 AM CDT from Last 3 Months or Most Recently Relevant to Health Maintenance Results * HPV HIGH RISK (03/19/2022 11:45 AM CDT) TYPE 16 Negative Negative 03/22/2022 3:15 PM CDT [facility] TYPE 18 Negative Negative 03/22/2022 3:15 PM CDT [facility] OTHER HIGH RISK TYPES Negative Negative 03/22/2022 3:15 PM CDT [facility] Other (Cervical/Vagina l) 03/19/2022 11:45 AM CDT 03/21/2022 7:36 AM CDT Narrative [facility] 03/22/2022 3:15 PM CDT HPV types 16, 18, 31, 33, 35, 39, 45, 51, 52, 56, 58, 59, 66 and 68 DNA were undetectable or below the pre-set threshold. Methodology: Eyad Eric 4800 HPV Test Shirley Whyte MD MICROBIOLO GY [facility] [address] [place] [address], [place] from Last 3 Months or Most Recently Relevant to Health Maintenance Care Teams [employer] Relationship Specialty Start Date End Date Juan Alberto Jackson MD PCP - General 09/20/08
[2024-07-01 19:13] LABS: Ur HCG Qualitative* Negative (Negative)
[2024-07-01 19:20] LABS: Bacteria Urine Moderate; Squamous Epithelial Cell Urine Moderate (None-Few); WBC Urine 25-50 (0-5)
[2024-07-01 20:51] VITALS: BP 103/74; PULSE 68; RESP 18; TEMP 36.6; O2SAT 99
[2024-07-01 21:47] LABS: Lactate Sepsis w/Reflex* 0.7 mmol/L (0.5-1.9)
[2024-07-01 21:50] LABS: Basophils Percent Auto 0.2 % (0.0-3.0); Eosinophils Percent Auto 0.3 % (0.0-7.0); Hematocrit 38.7 % (33.0-51.0); Hemoglobin* 12.5 gm/dL (12.0-16.0); Immature Granulocytes Pct Auto 0.1 %; Lymphocytes Percent Auto 5.9 % (20-44); Mean Corpuscular HGB Conc 32 gm/dL (32-36); Mean Corpuscular Hemoglobin 30 pg (26-34); Mean Corpuscular Volume 92 fL (80-100); Monocytes Percent Auto 1.9 % (0.0-11.0); Neutrophils Percent Auto 91.6 % (42.0-72.0); Platelet Count* 221 K/uL (140-440); RDW Coefficient of Variation % 13.3 % (11.5-15.5); Red Blood Count 4.19 m/uL (4.00-5.20); White Blood Count* 13.32 K/uL (4.50-11.00)
[2024-07-01 21:58] LABS: Slide Review Reflex No
[2024-07-01 22:09] LABS: Chloride* 113 mmol/L (96-114); Potassium* 4.1 mmol/L (3.6-5.1); Sodium* 138 mmol/L (135-149)
[2024-07-01 22:12] LABS: Creatinine* 0.9 mg/dL (0.5-1.5); Est. Creatinine Clearance* 74.62; Estimated Glomerular Filt Rate 85 ml/min
[2024-07-01 22:13] LABS: Anion Gap 10 mEq/L (7-15); Blood Urea Nitrogen* 13 mg/dL (5-24); Calcium* 8.7 mg/dL (8.4-10.6); Carbon Dioxide* 15 mmol/L (20-32); Glucose* 113 mg/dL (60-115)
[2024-07-01 22:17] LABS: C Reactive Protein* < 0.5 mg/dL (0.5-1.0)
== END 2024-07-01 22:37 | disposition home or self-care (01) ==
PROVIDERS: Emergency Provider Emergency Medicine; PCP Family Medicine
DX: N13.2 Hydronephrosis with renal and ureteral calculous obstruction (principal)
CPT/HCPCS: 36415; 74176; 80048; 81001; 81025; 83605; 85025; 86140; 87086; 96374; 96375; 99284; J1885; J2405; J7030

== ENCOUNTER 2025-06-25 12:05 | Outpatient (CLI) | payer BC, SELFPAY | END 2025-06-25 12:06 | disposition home or self-care (01) | PROVIDERS: PCP Family Medicine; Visit Provider Family Medicine | DX: R10.32 Left lower quadrant pain (principal) | CPT/HCPCS: 80048; 85025 ==

== ENCOUNTER 2025-09-13 12:10 | Outpatient (CLI) | payer BC, SELFPAY | END 2025-09-13 12:11 | disposition home or self-care (01) | LOC: NFLDREF 09-21 16:22 | PROVIDERS: PCP Family Medicine; Referring Provider Family Medicine; Visit Provider Family Medicine | DX: R10.32 Left lower quadrant pain (principal) | CPT/HCPCS: 87086 ==